=== PATIENT | female | born 1935 | race Hispanic/Latino ===

== ENCOUNTER 2018-12-08 08:32 | Emergency (ER) | payer MEDICARE ==
[2018-12-08 09:01] VITALS: BP 193/85
[2018-12-08] MEDS ORDERED: NORVASC PO ONE (09:53)
--- NOTE | 2018-12-08 10:01 | XRay Report ---
AP CHEST: HISTORY: Palpitations No comparison. There is poor inspiration with bilateral lower lobe opacities. This probably represents atelectatic changes or scarring. The upper lung zones are clear. No large pleural effusion or pneumothorax. Heart size is within normal limits. The bony structures are mildly demineralized but intact. IMPRESSION: Bibasilar opacities as described. I suspect this is secondary to poor inspiration or chronic scarring. If fever is present, pneumonia could be considered.
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
--- NOTE | 2018-12-08 10:34 | Cat Scan Report ---
CT CERVICAL SPINE WITHOUT CONTRAST:12/08/18 08:32:00 CLINICAL: Headache. TECHNIQUE: Volumetric acquisition and 1.25-mm axial scan reconstructions without contrast. Sagittal and coronal reformats were performed. FINDINGS: Moderate multilevel degenerative disc disease with reversal of curvature at C3-4. Disc space narrowing and osteophytes from C3-4 through C6-7. Moderate spinal canal stenosis from C3-4 through C6-5-6. Odontoid and C1 are intact. Multilevel bilateral facet joint arthropathy. No fracture or subluxation. Normal soft tissues and airway. No apparent disc protrusions or bulges. IMPRESSION: Multilevel degenerative disc disease and facet joint arthropathy.
--- NOTE | 2018-12-08 10:47 | Cat Scan Report ---
CT ABDOMEN AND PELVIS WITHOUT CONTRAST: 12/08/18 08:32:00 CLINICAL:Abdominal pain. TECHNIQUE: Volumetric acquisition and 1.25 millimeter scan reconstructions from the lung bases through the pelvis. The study was performed without oral contrast. FINDINGS: Abdomen:Bilateral lower lobe partial atelectasis and scarring. Bilateral lower lobe bronchiectasis. No pleural effusion. Normal liver size, contour and overall density. No liver mass. Normal intrahepatic bile ducts. The gallbladder is distended with a small amount of sludge in the dependent portion of the gallbladder. No cholelithiasis. The distal common bile duct measures 7.5 mm but tapers to the ampulla. No evidence of choledocholithiasis. The pancreas is small and unremarkable. Normal stomach and duodenum. Normal adrenal glands and kidneys. The renal collecting systems and ureters are nondilated. Normal inferior vena cava. Extensive calcification of the abdominal aorta. Aortic ectasia and tortuosity. The small bowel and colon are normal. An appendix is not confidently identified. No ascites and no pneumoperitoneum. Pelvis: Normal urinary bladder and uterus. Irregular mass of the distal rectum extending into the vulva. The mass measures at least 5.3 x 4.0 cm image 332, series 2. This irregular mass is also demonstrated on coronal imaging image 89, series 4. Bone windows demonstrate extensive degenerative changes in the spine and no suspicious bone lesions. IMPRESSION: 1. Mass of the distal rectum, anus and vulva. The margins of the mass and exact size are not well delineated on this noncontrast exam and would be better demonstrated with IV contrast and contrast in the rectum. 2. No evidence of bowel obstruction. 3. Negative upper abdomen.
[2018-12-08 10:50] LABS: Hematocrit 29.2 % (30.3-42.9); Hemoglobin 9.5 gm/dl (10.1-14.3); Mean Corpuscular HGB Conc 33 % (30-34); Mean Corpuscular Volume 79 fl (79-97); Platelet Count 428 K/mm3 (140-440); Red Blood Count 3.71 M/mm3 (3.65-5.03); Red Cell Distribution Width 17.5 % (13.2-15.2)
[2018-12-08 11:01] LABS: INR 1.06 (0.87-1.13)
[2018-12-08 11:02] LABS: Partial Thromboplastin Time 38.3 Sec. (24.2-36.6)
[2018-12-08 11:10] LABS: Alanine Aminotransferase 7 units/L (7-56); Albumin 3.9 g/dL (3.9-5); BUN/Creatinine Ratio 12; Blood Urea Nitrogen 7 mg/dL (7-17); Calcium 9.9 mg/dL (8.4-10.2); Hemolysis Index 21
[2018-12-08 11:51] LABS: Band Neutrophils # (Manual) 0.2 K/mm3; Basophils % (Manual) 0 % (0.0-1.8); Eosinophils % (Manual) 0 % (0.0-4.3); Giant Platelets Rare; Hypochromasia 1+; Platelet Estimate Consistent w Auto; Total Cells Counted 100
--- NOTE | 2018-12-08 12:15 | Emergency Department Report ---
ED General Adult HPI - General Chief complaint: Medical Clearance Stated complaint: PAIN ALL OVER Time Seen by Provider: 12/08/18 09:16 Source: EMS Mode of arrival: Stretcher Limitations: No Limitations - History of Present Illness Initial comments: The patient presents to emergency department with multiple chief complaints. The patient complains of having a headache that started since she arrived to the emergency department that she describes as being diffuse in nature and throbbing. Patient also complains of neck pain. Patient denies a recent trauma but has a history of brain aneurysm. Patient also complains of diffuse abdominal pain as well. Patient was recently seen by her primary care physician and was told that she needs to follow up with digital media producer. -: Gradual Location: head, abdomen Radiation: non-radiation Severity scale (0 -10): 5 Quality: aching Consistency: constant Improves with: none Worsens with: none Associated Symptoms: denies other symptoms Treatments Prior to Arrival: none - Related Data Previous Rx's Medication Instructions Recorded Last Taken Type Ibuprofen [Motrin] 800 mg PO Q8HR PRN #21 tablet 12/08/18 Unknown Rx Allergies Allergy/AdvReac Type Severity Reaction Status Date / Time No Known Allergies Allergy Verified 12/08/18 08:43 ED Review of Systems ROS: Stated complaint: PAIN ALL OVER Other details as noted in HPI Comment: Unobtainable due to pts medical conditions Constitutional: denies: chills, fever Eyes: denies: eye pain, eye discharge, vision change ENT: denies: ear pain, throat pain Respiratory: denies: cough, shortness of breath, wheezing Cardiovascular: denies: chest pain, palpitations Endocrine: no symptoms reported Gastrointestinal: abdominal pain. denies: nausea, diarrhea Genitourinary: denies: urgency, dysuria, discharge Musculoskeletal: denies: back pain, joint swelling, arthralgia Skin: denies: rash, lesions Neurological: headache. denies: weakness, paresthesias Psychiatric: denies: anxiety, depression Hematological/Lymphatic: denies: easy bleeding, easy bruising ED Past Medical Hx - Past Medical History Previous Medical History?: Yes Hx Hypertension: Yes Hx Diabetes: Yes - Surgical History Past Surgical History?: Yes Hx Breast Surgery: Yes (L mastectomy) - Social History Smoking Status: Never Smoker Substance Use Type: None - Medications Home Medications: Home Medications Medication Instructions Recorded Confirmed Last Taken Type Ibuprofen [Motrin] 800 mg PO Q8HR PRN #21 tablet 12/08/18 Unknown Rx ED Physical Exam - General Limitations: No Limitations General appearance: alert, in no apparent distress - Head Head exam: Present: atraumatic, normocephalic - Eye Eye exam: Present: normal appearance, PERRL, EOMI - ENT ENT exam: Present: mucous membranes moist - Neck Neck exam: Present: normal inspection - Respiratory Respiratory exam: Present: normal lung sounds bilaterally. Absent: respiratory distress, wheezes, rales, rhonchi - Cardiovascular Cardiovascular Exam: Present: normal rhythm, other (irregularly irregular). Absent: systolic murmur, diastolic murmur, rubs, gallop - GI/Abdominal GI/Abdominal exam: Present: soft, tenderness (diffuse tenderness to palpation), normal bowel sounds. Absent: distended - Rectal Rectal exam: Present: other (rectal mass on digital exam chaperoned by Nurse Juliana Teague) - External exam: Present: other (mass of Vulva chaperoned by Nurse Juliana RN) - Extremities Exam Extremities exam: Present: normal inspection - Back Exam Back exam: Present: normal inspection - Neurological Exam Neurological exam: Present: alert, oriented X3, CN II-XII intact. Absent: motor sensory deficit - Psychiatric Psychiatric exam: Present: normal affect, normal mood - Skin Skin exam: Present: warm, dry, intact, normal color. Absent: rash ED Course Vital Signs 12/08/18 12/08/18 12/08/18 08:40 08:48 09:00 Temperature 99.1 F 98.5 F Pulse Rate 120 H 107 H Respiratory 16 Rate Blood Pressure 190/80 193/85 O2 Sat by Pulse 95 96 Oximetry ED Medical Decision Making - Lab Data Result diagrams: 12/08/18 10:25 12/08/18 10:25 Lab Results 12/08/18 12/08/18 12/08/18 Range/Units 10:25 10:25 10:25 WBC 10.2 (4.5-11.0) K/mm3 RBC 3.71 (3.65-5.03) M/mm3 Hgb 9.5 L (10.1-14.3) gm/dl Hct 29.2 L (30.3-42.9) % MCV 79 (79-97) fl MCH 26 L (28-32) pg MCHC 33 (30-34) % RDW 17.5 H (13.2-15.2) % Plt Count 428 (140-440) K/mm3 [place] % (Auto) Grading Clerk Add Manual Diff Complete Total Counted 100 Seg Neuts % (Manual) 77.0 H (40.0-70.0) % Band Neutrophils % 2.0 % Lymphocytes % (Manual) 8.0 L (13.4-35.0) % Reactive Lymphs % (Man) 0 % Monocytes % (Manual) 13.0 H (0.0-7.3) % Eosinophils % (Manual) 0 (0.0-4.3) % Basophils % (Manual) 0 (0.0-1.8) % Metamyelocytes % 0 % Myelocytes % 0 % Promyelocytes % 0 % Blast Cells % 0 % Nucleated RBC % Not Reportable Seg Neutrophils # Man 7.9 H (1.8-7.7) K/mm3 Band Neutrophils # 0.2 K/mm3 Lymphocytes # (Manual) 0.8 L (1.2-5.4) K/mm3 Abs React Lymphs (Man) 0.0 K/mm3 Monocytes # (Manual) 1.3 H (0.0-0.8) K/mm3 Eosinophils # (Manual) 0.0 (0.0-0.4) K/mm3 Basophils # (Manual) 0.0 (0.0-0.1) K/mm3 Metamyelocytes # 0.0 K/mm3 Myelocytes # 0.0 K/mm3 Promyelocytes # 0.0 K/mm3 Blast Cells # 0.0 K/mm3 WBC Morphology Not Reportable Hypersegmented Neuts Not Reportable Hyposegmented Neuts Not Reportable Hypogranular Neuts Not Reportable Smudge Cells Not Reportable Toxic Granulation Not Reportable Toxic Vacuolation Not Reportable Dohle Bodies Not Reportable Pelger-Huet Anomaly Not Reportable Randee Rods Not Reportable Platelet Estimate Consistent w auto Clumped Platelets Not Reportable Plt Clumps, EDTA Not Reportable Large Platelets Not Reportable Giant Platelets Rare Platelet Satelliting Not Reportable Plt Morphology Comment Not Reportable RBC Morphology Not Reportable Dimorphic RBCs Not Reportable Polychromasia Not Reportable Hypochromasia 1+ Poikilocytosis Not Reportable Anisocytosis Not Reportable Microcytosis Not Reportable Macrocytosis Not Reportable Spherocytes Not Reportable Pappenheimer Bodies Not Reportable Sickle Cells Not Reportable Target Cells Not Reportable Tear Drop Cells Not Reportable Ovalocytes Not Reportable Helmet Cells Not Reportable [place]-Saks Bodies Not Reportable [place] Rings Not Reportable Ania Cells Not Reportable Bite Cells Not Reportable Crenated Cell Not Reportable Elliptocytes Not Reportable Acanthocytes (Spur) Not Reportable Rouleaux Not Reportable Hemoglobin C Crystals Not Reportable Schistocytes Not Reportable Malaria parasites Not Reportable Josemanuel Bodies Not Reportable Hem Pathologist Commnt No PT 14.5 (12.2-14.9) Sec. INR 1.06 (0.87-1.13) APTT 38.3 H (24.2-36.6) Sec. Sodium 137 (137-145) mmol/L Potassium 3.9 (3.6-5.0) mmol/L Chloride 99.2 (98-107) mmol/L Carbon Dioxide 22 (22-30) mmol/L Anion Gap 20 mmol/L BUN 7 (7-17) mg/dL Creatinine 0.6 L (0.7-1.2) mg/dL Estimated GFR > 60 ml/min BUN/Creatinine Ratio 12 % Glucose 154 H (65-100) mg/dL Calcium 9.9 (8.4-10.2) mg/dL Phosphorus 2.40 L (2.5-4.5) mg/dL Magnesium 1.70 (1.7-2.3) mg/dL Total Bilirubin 0.40 (0.1-1.2) mg/dL AST 12 (5-40) units/L ALT 7 (7-56) units/L Alkaline Phosphatase 75 (35-129) units/L NT-Pro-B Natriuret Pep 601.7 (0-900) pg/mL Total Protein 8.1 (6.3-8.2) g/dL Albumin 3.9 (3.9-5) g/dL Albumin/Globulin Ratio 0.9 % Urine Color (Yellow) Urine Turbidity (Clear) Urine pH (5.0-7.0) Ur Specific [place] (1.003-1.030) Urine Protein (Negative) mg/dL Urine Glucose (UA) (Negative) mg/dL Urine Ketones (Negative) mg/dL Urine Blood (Negative) Urine Nitrite (Negative) Urine Bilirubin (Negative) Urine Urobilinogen (<2.0) mg/dL Ur Leukocyte Esterase (Negative) Urine WBC (Auto) (0.0-6.0) /HPF Urine RBC (Auto) (0.0-6.0) /HPF 12/08/18 Range/Units Unknown WBC (4.5-11.0) K/mm3 RBC (3.65-5.03) M/mm3 Hgb (10.1-14.3) gm/dl Hct (30.3-42.9) % MCV (79-97) fl MCH (28-32) pg MCHC (30-34) % RDW (13.2-15.2) % Plt Count (140-440) K/mm3 [place] % (Auto) Add Manual Diff Total Counted Seg Neuts % (Manual) (40.0-70.0) % Band Neutrophils % % Lymphocytes % (Manual) (13.4-35.0) % Reactive Lymphs % (Man) % Monocytes % (Manual) (0.0-7.3) % Eosinophils % (Manual) (0.0-4.3) % Basophils % (Manual) (0.0-1.8) % Metamyelocytes % % Myelocytes % % Promyelocytes % % Blast Cells % % Nucleated RBC % Seg Neutrophils # Man (1.8-7.7) K/mm3 Band Neutrophils # K/mm3 Lymphocytes # (Manual) (1.2-5.4) K/mm3 Abs React Lymphs (Man) K/mm3 Monocytes # (Manual) (0.0-0.8) K/mm3 Eosinophils # (Manual) (0.0-0.4) K/mm3 Basophils # (Manual) (0.0-0.1) K/mm3 Metamyelocytes # K/mm3 Myelocytes # K/mm3 Promyelocytes # K/mm3 Blast Cells # K/mm3 WBC Morphology Hypersegmented Neuts Hyposegmented Neuts Hypogranular Neuts Smudge Cells Toxic Granulation Toxic Vacuolation Dohle Bodies Pelger-Huet Anomaly Randee Rods Platelet Estimate Clumped Platelets Plt Clumps, EDTA Large Platelets Giant Platelets Platelet Satelliting Plt Morphology Comment RBC Morphology Dimorphic RBCs Polychromasia Hypochromasia Poikilocytosis Anisocytosis Microcytosis Macrocytosis Spherocytes Pappenheimer Bodies Sickle Cells Target Cells Tear Drop Cells Ovalocytes Helmet Cells [place]-Saks Bodies [place] Rings [place] Cells Bite Cells Crenated Cell Elliptocytes Acanthocytes (Spur) Rouleaux Hemoglobin C Crystals Schistocytes Malaria parasites Josemanuel Bodies Hem Pathologist Commnt PT (12.2-14.9) Sec. INR (0.87-1.13) APTT (24.2-36.6) Sec. Sodium (137-145) mmol/L Potassium (3.6-5.0) mmol/L Chloride (98-107) mmol/L Carbon Dioxide (22-30) mmol/L Anion Gap mmol/L BUN (7-17) mg/dL Creatinine (0.7-1.2) mg/dL Estimated GFR ml/min BUN/Creatinine Ratio % Glucose (65-100) mg/dL Calcium (8.4-10.2) mg/dL Phosphorus (2.5-4.5) mg/dL Magnesium (1.7-2.3) mg/dL Total Bilirubin (0.1-1.2) mg/dL AST (5-40) units/L ALT (7-56) units/L Alkaline Phosphatase (35-129) units/L NT-Pro-B Natriuret Pep (0-900) pg/mL Total Protein (6.3-8.2) g/dL Albumin (3.9-5) g/dL Albumin/Globulin Ratio % Urine Color Yellow (Yellow) Urine Turbidity Clear (Clear) Urine pH 7.0 (5.0-7.0) Ur Specific [place] 1.013 (1.003-1.030) Urine Protein <15 mg/dl (Negative) mg/dL Urine Glucose (UA) 50 (Negative) mg/dL Urine Ketones 20 (Negative) mg/dL Urine Blood Neg (Negative) Urine Nitrite Neg (Negative) Urine Bilirubin Neg (Negative) Urine Urobilinogen < 2.0 (<2.0) mg/dL Ur Leukocyte Esterase Neg (Negative) Urine WBC (Auto) < 1.0 (0.0-6.0) /HPF Urine RBC (Auto) 1.0 (0.0-6.0) /HPF - Radiology Data Radiology results: report reviewed - Medical Decision Making on Repeat exams the patient heart rate is tachycardic but has not irregularly irregular patient still denies this pain Spoke with cardiology and appointment is set for tomorrow for follow-up Discussed plan of care with the patient her family Critical care attestation.: If time is entered above; I have spent that time in minutes in the direct care of this critically ill patient, excluding procedure time. ED Disposition Clinical Impression: Vulvar mass, Rectal mass, Arrhythmia, Cervical strain, Headache, Abdominal pain Disposition: TO HOME OR SELFCARE Is pt being admited?: No Does the pt Need Aspirin: No Condition: Stable Instructions: Acute Abdominal Pain (ED), Acute Headache (ED), Cervical Spine Strain (ED) Additional Instructions: return if worse History of appointment tomorrow at Dr. Moeller's office at 2:20pm Prescriptions: Ibuprofen [Motrin] 800 mg PO Q8HR PRN #21 tablet PRN Reason: pain Referrals: MEL MUNSON DO [Staff Physician] - 3-5 Days RICHARD MOELLER MD [Staff Physician] - 3-5 Days PRIMARY CAREMD [Primary Care Provider] - 3-5 Days [facility] [Provider Group] - 3-5 Days Time of Disposition: 14:44
[2018-12-08 13:58] LABS: Bilirubin,Urine NEG (Negative); Blood,Urine NEG (Negative); Color,Urine Yellow (Yellow); Protein,Urine <15 mg/dL mg/dL (Negative); Urobilinogen,Urine < 2.0 mg/dL (<2.0); WBC,Urine < 1.0 /HPF (0.0-6.0)
== END 2018-12-08 15:29 | disposition home or self-care (01) ==
LOC: ED 08:32
DX: S16.1XXA Strain of muscle, fascia and tendon at neck level, initial encounter (principal); N90.9 Noninflammatory disorder of vulva and perineum, unspecified; K62.9 Disease of anus and rectum, unspecified; I10 Essential (primary) hypertension; E11.9 Type 2 diabetes mellitus without complications; Z90.12 Acquired absence of left breast and nipple; X58.XXXA Exposure to other specified factors, initial encounter; Y93.89 Activity, other specified; Y92.89 Other specified places as the place of occurrence of the external cause; Y99.8 Other external cause status
CPT/HCPCS: 36415; 70450; 71045; 72125; 74176; 80053; 81001; 83735; 83880; 84100; 85007; 85025; 85610; 85730; 93005; 93010; 99285

== ENCOUNTER 2019-04-05 15:27 | Inpatient (IN) | payer MEDICARE ==
[2019-04-05] MEDS ORDERED: CATAPRES PO ONE (16:55)
[2019-04-05] MEDS ORDERED: NORCO 5/325 PO ONE (16:56)
[2019-04-05 17:03] LABS: Hematocrit 31.8 % (30.3-42.9); Hemoglobin 10.5 gm/dl (10.1-14.3); Mean Corpuscular HGB Conc 33 % (30-34); Mean Corpuscular Volume 80 fl (79-97); Platelet Count 365 K/mm3 (140-440); Red Blood Count 3.97 M/mm3 (3.65-5.03)
[2019-04-05 17:04] LABS: Red Cell Distribution Width 22.2 % (13.2-15.2)
--- NOTE | 2019-04-05 17:07 | Emergency Department Report ---
ED Extremity Problem HPI - General Chief complaint: Extremity Injury, Lower Stated complaint: LEG PAIN (BOTH) Time Seen by Provider: 04/05/19 16:35 Source: patient Mode of arrival: Wheelchair Limitations: No Limitations - History of Present Illness Initial comments: 83-year-old female past medical history is [id number] diabetes, diabetic neuropathy, hypertension, elevated cholesterol, breast cancer in remission status post left mastectomy presents to the hospital complaining of worsening and chronic right foot pain. Patient has had chronic foot ulcers and has been under care of a program manager environmental planning for at least 3 months. She has been seen by [facility] at [address] [place] [address] phone #[phone]. Patient completed a course of antibiotics 2 weeks ago. She Missed a recent scheduled MRI appointment of both feet and a follow-up appointment yesterday. Patient presents with elevated blood pressure and heart rateshe has been compliant with her medication. She presents complaining of worsening and chronic right fifth toe pain without new complaints of trauma. No complaints of fever. Patient taking a neuropathy pill for pain and Tylenol without relief. Severity scale (0 -10): 8 - Related Data Previous Rx's Medication Instructions Recorded Last Taken Type Ibuprofen [Motrin] 800 mg PO Q8HR PRN #21 tablet 12/08/18 Unknown Rx Allergies Allergy/AdvReac Type Severity Reaction Status Date / Time No Known Allergies Allergy Verified 04/05/19 15:30 ED Review of Systems ROS: Stated complaint: LEG PAIN (BOTH) Other details as noted in HPI Comment: All other systems reviewed and negative ED Past Medical Hx - Past Medical History Hx Hypertension: Yes Hx Diabetes: Yes Hx of Cancer: Yes (breast cancer in remission) Additional medical history: Elevated cholesterol - Surgical History Hx Breast Surgery: Yes (L mastectomy) - Social History Smoking Status: Unknown if ever smoked - Medications Home Medications: Home Medications Medication Instructions Recorded Confirmed Last Taken Type Ibuprofen [Motrin] 800 mg PO Q8HR PRN #21 tablet 12/08/18 Unknown Rx ED Physical Exam - General Limitations: No Limitations - Other Other exam information: General: No limitations, patient is alert in no acute distress Head exam: Atraumatic, normocephalic Eyes exam: Normal appearance ENT: Moist mucous membrane, normal oropharynx Neck exam: Normal inspection, full range of motion, no meningismus nontender Respiratory exam: Clear to auscultation bilateral, no wheezes, rales, crackles Cardiovascular: Normal rate and rhythm, normal heart sounds Abdomen: Soft, nondistended, and nontender, with normal bowel sounds, no rebound, or guarding Extremity: Rightfully eroded right toe with chronic ulcer without warmth, drainage, or tenderness. Patient has a superficial ulcer to right pinkie toe with pain with passive and active movement. Unable to palpate DP pulses of either foot or auscultate with Doppler Back: Normal Inspection, full range of motion, no tenderness Neurologic: Alert, oriented x3, cranial nerves intact, no motor or sensory deficit Psychiatric: normal affect, normal mood Skin: Warm, dry, intact ED Course Vital Signs 04/05/19 04/05/19 04/05/19 16:30 16:35 17:13 Temperature 98.0 F Pulse Rate 111 H 130 H Respiratory 13 16 Rate Blood Pressure Blood Pressure 222/120 [Left] O2 Sat by Pulse 99 100 100 Oximetry 04/05/19 04/05/19 04/05/19 17:30 18:00 18:37 Temperature Pulse Rate 89 85 98 H Respiratory 18 18 24 Rate Blood Pressure 186/85 167/69 167/69 Blood Pressure [Left] O2 Sat by Pulse 94 97 Oximetry 04/05/19 04/05/19 19:01 19:31 Temperature Pulse Rate 91 H 86 Respiratory 15 16 Rate Blood Pressure 148/79 167/69 Blood Pressure [Left] O2 Sat by Pulse 100 100 Oximetry ED Medical Decision Making - Lab Data Result diagrams: 04/05/19 16:53 04/05/19 16:53 Lab Results 04/05/19 04/05/19 04/05/19 Range/Units 16:53 16:53 17:12 WBC 5.8 (4.5-11.0) K/mm3 RBC 3.97 (3.65-5.03) M/mm3 Hgb 10.5 (10.1-14.3) gm/dl Hct 31.8 (30.3-42.9) % MCV 80 (79-97) fl MCH 27 L (28-32) pg MCHC 33 (30-34) % RDW 22.2 H (13.2-15.2) % Plt Count 365 (140-440) K/mm3 ESR 38 (0-20) mm/Hr Sodium 139 (137-145) mmol/L Potassium 3.8 (3.6-5.0) mmol/L Chloride 101.0 (98-107) mmol/L Carbon Dioxide 21 L (22-30) mmol/L Anion Gap 21 mmol/L BUN 11 (7-17) mg/dL Creatinine 0.6 L (0.7-1.2) mg/dL Estimated GFR > 60 ml/min BUN/Creatinine Ratio 18 % Glucose 102 H (65-100) mg/dL POC Glucose 109 H (70-105) Calcium 10.0 (8.4-10.2) mg/dL Total Bilirubin 0.20 (0.1-1.2) mg/dL AST 18 (5-40) units/L ALT 18 (7-56) units/L Alkaline Phosphatase 97 (35-129) units/L Total Protein 8.2 (6.3-8.2) g/dL Albumin 4.1 (3.9-5) g/dL Albumin/Globulin Ratio 1.0 % - EKG Data -: EKG Interpreted by Nv EKG shows normal: sinus rhythm, axis (qrs -22), QRS complexes (qrsd 80), ST-T waves (no setmi) Rate: normal (87) - Radiology Data Radiology results: report reviewed, image reviewed (right foot xray: (my read) 5 toe degeneration at proximal phalnge ? fxt vs osteo) official report obtained afer admission: PROCEDURE: XR FOOT 3+V RT TECHNIQUE: foot radiographs, AP, lateral, and oblique views. HISTORY: foot pain chronic 1st and 5th toe ulcer COMPARISONS: None . FINDINGS: AP, lateral and oblique views of the right foot were acquired. No fracture or evidence of osteomyelitis is seen in the right foot. There is a soft tissue density dorsal to the first distal phalanx approximately 0.9 x 0.8 cm. This is abutting clear etiology could be a skin tag or an abnormality of the nail of the first digit. Correlation with direct visualization is recommended. There is 0.3 similar lateral listhesis of the fifth middle phalanx with regard to the proximal phalanx which appears unlikely to be acute finding. There is enthesophyte at the Achilles tendon insertion. There is atherosclerosis of the arterial vasculature. IMPRESSION: No fracture is seen in the right foot - Medical Decision Making She has bone abnormality or x-ray at the fifth digit at the area of patient's chronic blister of her fifth right toe. ddx occult fracture versus osteomyelitis. This is also at the area of her chronic blister therefore since patient has elevated ESR she will be treated for osteomyelitis. Blood cultures pending. Vancomycin ordered. Hospitalist nurse practitioner informed. Pain improved after [place] and blood pressure improved after clonidine. Heart rate also improved. We are unable to palpate or auscultate a DP pulse in either extremity in the ED official report of foot xray received after admission. pt has tenderness there with elevated ESR so clinically will be treated for osteo until it is ruled out. - Differential Diagnosis foot ulcer, cellulitis, osteomyelitis, chronic pain, neuropathy, pad Critical Care Time: No Critical care attestation.: If time is entered above; I have spent that time in minutes in the direct care of this critically ill patient, excluding procedure time. ED Disposition Clinical Impression: Diabetic foot ulcer, Osteomyelitis, Hypertension, Diabetic neuropathy, PAD (peripheral artery disease) Disposition: OP ADMIT IP TO THIS HOSP Is pt being admited?: Yes Condition: Stable Time of Disposition: 19:32 (hospitalist)
[2019-04-05 17:23] LABS: Erythrocyte Sedimentation Rate 38 mm/Hr (0-20)
[2019-04-05 17:25] LABS: Alanine Aminotransferase 18 units/L (7-56); Albumin 4.1 g/dL (3.9-5); BUN/Creatinine Ratio 18; Blood Urea Nitrogen 11 mg/dL (7-17); Hemolysis Index 11
--- NOTE | 2019-04-05 19:34 | XRay Report ---
PROCEDURE: XR FOOT 3+V RT TECHNIQUE: foot radiographs, AP, lateral, and oblique views. HISTORY: foot pain chronic 1st and 5th toe ulcer COMPARISONS: None . FINDINGS: AP, lateral and oblique views of the right foot were acquired. No fracture or evidence of o steomyelitis is seen in the right foot. There is a soft tissue density dorsal to the first distal pha lanx approximately 0.9 x 0.8 cm. This is abutting clear etiology could be a skin tag or an abnormalit y of the nail of the first digit. Correlation with direct visualization is recommended. There is 0.3 similar lateral listhesis of the fifth middle phalanx with regard to the proximal phalan x which appears unlikely to be acute finding. There is enthesophyte at the Achilles tendon insertion. There is atherosclerosis of the arterial vasculature. IMPRESSION: No fracture is seen in the right foot This document is electronically signed by Quinten Cummings MD., April 05 2019 07:32:31 PM ET
[2019-04-05] MEDS ORDERED: VANCOMYCIN/NS 1 GM/250 ML 1 GM/250 ML BAG IV ONE (19:55)
[2019-04-05] MEDS ORDERED: D50W (25GM) Syringe IV PRN (20:21)
[2019-04-05] MEDS ORDERED: ZOFRAN IV PRN (20:21)
[2019-04-05] MEDS ORDERED: SODIUM CHLORIDE FLUSH SYRINGE 10 ML IV PRN (20:21)
[2019-04-05] MEDS ORDERED: VANCOMYCIN PHARMACY TO DOSE IV SCH (21:00)
--- NOTE | 2019-04-05 21:00 | History and Physical Report ---
<ADAMARIS HOUGH - Last Filed: 04/05/19 21:35> History of Present Illness Date of examination: 04/05/19 Date of admission: 04/05/19 20:21 Chief complaint: Right foot pain/sore History of present illness: 83-year-old -Tongan female with history of DM2 with neuropathy, hypertension, HLD, breast cancer (in remission) s/p left mastectomy presents to [facility] ED with complaints of worsening chronic right foot pain. She's had chronic foot ulcers for several months and has been under care of a instrument processing tech ([facility] at [address] [place] [address]) for the past 3 months. She complains right foot pain, and the pain is worse and right toe. She also states that she has sharp bilateral lower leg pain, and rates it 8/10. She has tried otc Tylenol and neuropathy medication with no relief. Patient states that she has completed a course of oral antibiotics 2 weeks ago. Patient had a schedule appointment yesterday for MRI of both feet; however she was unable to keep appointment. Denies: Recent foot trauma, n/v/d, fever, cough, hemoptysis, recent sick contact, or recent hospitalization Past History Past Medical History: cancer (breast cancer), diabetes ([id number]), hypertension, hyperlipidemia Past Surgical History: mastectomy (left) Social history: lives with family Family history: no significant family history Medications and Allergies Allergies Allergy/AdvReac Type Severity Reaction Status Date / Time No Known Allergies Allergy Verified 04/05/19 15:30 Home Medications Medication Instructions Recorded Confirmed Last Taken Type Ibuprofen [Motrin] 800 mg PO Q8HR PRN #21 tablet 12/08/18 04/06/19 Unknown Rx Gabapentin [Neurontin] 300 mg PO BID 04/05/19 04/06/19 Unknown History Losartan [Cozaar] 100 mg PO QDAY 04/05/19 04/06/19 Unknown History Metoprolol [Lopressor TAB] 25 mg PO QDAY 04/05/19 04/06/19 Unknown History Ranitidine HCl [Zantac] 300 mg PO QDAY 04/05/19 04/06/19 Unknown History Simvastatin 40 mg PO QHS 04/05/19 04/06/19 Unknown History Vitamin D2 50,000 units PO QWEEK 04/05/19 04/06/19 Unknown History amLODIPine [Norvasc] 10 mg PO DAILY 04/05/19 04/05/19 Unknown History metFORMIN [Glucophage] 500 mg PO QHS 04/05/19 04/06/19 Unknown History Active Meds: Active Medications Acetaminophen (Tylenol) 650 mg PO Q4H PRN PRN Reason: Pain MILD(1-3)/Fever >100.5/HYLTON Dextrose (D50w (25gm) Syringe) 50 ml IV PRN PRN PRN Reason: Hypoglycemia Enoxaparin Sodium (Lovenox) 40 mg SUB-Q QDAY [facility] Vancomycin HCl (Vancomycin/Ns 1 Gm/250 Ml) 1 gm in 250 mls @ 167.007 mls/hr IV ONCE ONE; Protocol Stop: 04/05/19 21:24 Ampicillin Sodium/Sulbactam Sodium (Unasyn/Ns 1.5 Gm/50 Ml) 1.5 gm in 50 mls @ 100 mls/hr IV Q6HR [facility]; Protocol Vancomycin HCl 750 mg/ Sodium (Chloride) 265 mls @ 166.667 mls/hr IV Q24H [facility] Insulin Human Lispro (Humalog) 0 unit SUB-Q ACHS [facility]; Protocol Ondansetron HCl (Zofran) 4 mg IV Q8H PRN PRN Reason: Nausea And Vomiting Oxycodone/Acetaminophen (Percocet 5/325) 1 tab PO Q6H PRN PRN Reason: Pain, Moderate (4-6) Sodium Chloride (Sodium Chloride Flush Syringe 10 Ml) 10 ml IV BID [facility] Sodium Chloride (Sodium Chloride Flush Syringe 10 Ml) 10 ml IV PRN PRN PRN Reason: LINE FLUSH Review of Systems All systems: negative (reviewed and no additional remarkable complaints except as noted below) Musculoskeletal: shooting leg pain Integumentary: sores (right foot), foot/leg ulcers Exam - Physical Exam Narrative exam: Physical exam General appearance: Present: No acute distress, alert and oriented 3, older adult -Tongan female - EENT Eyes: Present: PERRL, EOM intact ENT: hearing intact, poor dentition - Neck Neck: Present: supple, normal ROM - Respiratory Respiratory effort: Non-labored Respiratory: Clear throughout - Cardiovascular Heart rate: 87 (bpm) Rhythm: Sinus rhythm Heart Sounds: Present: S1 & S2. Absent: rub, click - Extremities Extremities: no ischemia, pulses intact, abnormal (sore/wound right great toe, posterior to right toe, sore great toe) - Peripheral Assessment Peripheral Pulses: within normal limits - Abdominal General gastrointestinal: soft, non-tender, normal bowel sounds - Integumentary Integumentary: Present: warm, dry - Musculoskeletal Musculoskeletal: generalized weakness - Psychiatric Psychiatric: cooperative - Constitutional Vitals: Temp Pulse Resp BP Pulse Ox 98.0 F 86 16 167/69 100 04/05/19 16:35 04/05/19 19:31 04/05/19 19:31 04/05/19 19:31 04/05/19 19:31 Results - Labs CBC & Chem 7: 04/05/19 16:53 04/05/19 16:53 Labs: Laboratory Last Values WBC 5.8 K/mm3 (4.5-11.0) 04/05/19 16:53 RBC 3.97 M/mm3 (3.65-5.03) 04/05/19 16:53 Hgb 10.5 gm/dl (10.1-14.3) 04/05/19 16:53 Hct 31.8 % (30.3-42.9) 04/05/19 16:53 MCV 80 fl (79-97) 04/05/19 16:53 MCH 27 pg (28-32) L 04/05/19 16:53 MCHC 33 % (30-34) 04/05/19 16:53 RDW 22.2 % (13.2-15.2) H 04/05/19 16:53 Plt Count 365 K/mm3 (140-440) 04/05/19 16:53 ESR 38 mm/Hr (0-20) 04/05/19 16:53 Sodium 139 mmol/L (137-145) 04/05/19 16:53 Potassium 3.8 mmol/L (3.6-5.0) 04/05/19 16:53 Chloride 101.0 mmol/L (98-107) 04/05/19 16:53 Carbon Dioxide 21 mmol/L (22-30) L 04/05/19 16:53 21 mmol/L 04/05/19 16:53 BUN 11 mg/dL (7-17) 04/05/19 16:53 0.6 mg/dL (0.7-1.2) L 04/05/19 16:53 Estimated GFR > 60 ml/min 04/05/19 16:53 18 % 04/05/19 16:53 Glucose 102 mg/dL (65-100) H 04/05/19 16:53 POC Glucose 109 (70-105) H 04/05/19 17:12 Calcium 10.0 mg/dL (8.4-10.2) 04/05/19 16:53 0.20 mg/dL (0.1-1.2) 04/05/19 16:53 AST 18 units/L (5-40) 04/05/19 16:53 ALT 18 units/L (7-56) 04/05/19 16:53 97 units/L (35-129) 04/05/19 16:53 8.2 g/dL (6.3-8.2) 04/05/19 16:53 4.1 g/dL (3.9-5) 04/05/19 16:53 1.0 % 04/05/19 16:53 - Imaging and Cardiology EKG: image reviewed (sinus rhythm 87 bpm) Imaging and Cardiology: Right foot x-ray: Findings: AP, lateral and oblique views of the right foot were acquired. No fracture or evidence of osteomyelitis is seen in the right foot. There is a soft tissue density dorsal to the first distal phalanx approximately 0.9 x 0.8 cm. This is abutting clear etiology could be a skin tag or an abnormality of the nail of the first digit. Correlation with direct visualization is recommended. There is 0.3 similar lateral listhesis of the fifth middle phalanx with regard to the proximal phalanx which appears unlikely to be acute finding. There is enthesophyte at the Achilles tendon insertion. There is atherosclerosis of the arterial vasculature. Assessment and Plan Assessment and plan: 83-year-old -Tongan female with history of DM2 with neuropathy, hypertension, HLD, breast cancer (in remission) s/p left mastectomy presents to [facility] ED with complaints of worsening chronic right foot pain. Left foot x-ray do not show evidence of fracture. She was found to be in hypertensive urgency with blood pressure of 186/85. Will admit to [facility] unit and start on empiric antibiotics. Suspicion of osteomyelitis Suspicion of PAD Hypertensive urgency Hypertension DM 2 with neuropathy HLD Hx Breast CA s/p Left masectomy Plan: Continue supportive care Pain Management Monitor BP IV hydralazine when necessary Will resume home antihypertensive medication once home medication reconciliation is updated bilateral low extremity arterial Doppler pending Start Unasyn and vancomycin ID consult pending POC BG Monitoring Pre-meal and sliding scale coverage ASA 81mg, Lipitor 10 mg daily at bedtime DVT PPX on Locenox Medication reconciliation pending Advance Directives: No VTE prophylaxis?: Chemical Plan of care discussed with patient/family: Yes <LYNN WATKINS S - Last Filed: 04/06/19 05:20> History of Present Illness Date of admission: 04/05/19 20:21 Medications and Allergies Active Meds: Active Medications Acetaminophen (Tylenol) 650 mg PO Q4H PRN PRN Reason: Pain MILD(1-3)/Fever >100.5/HYLTON Aspirin (Baby Aspirin) 81 mg PO QDAY [facility] Atorvastatin Calcium (Lipitor) 20 mg PO QHS [facility] Last Admin: 04/05/19 23:01 Dose: 20 mg Documented by: Dextrose (D50w (25gm) Syringe) 50 ml IV PRN PRN PRN Reason: Hypoglycemia Enoxaparin Sodium (Lovenox) 40 mg SUB-Q QDAY [facility] Ampicillin Sodium/Sulbactam Sodium (Unasyn/Ns 1.5 Gm/50 Ml) 1.5 gm in 50 mls @ 100 mls/hr IV Q6HR [facility]; Protocol Last Admin: 04/05/19 23:55 Dose: 100 mls/hr Documented by: Vancomycin HCl 750 mg/ Sodium (Chloride) 265 mls @ 166.667 mls/hr IV Q24H [facility] Insulin Human Lispro (Humalog) 0 unit SUB-Q ACHS [facility]; Protocol Last Admin: 04/05/19 23:09 Dose: 1 unit Documented by: Ondansetron HCl (Zofran) 4 mg IV Q8H PRN PRN Reason: Nausea And Vomiting Oxycodone/Acetaminophen (Percocet 5/325) 1 tab PO Q6H PRN PRN Reason: Pain, Moderate (4-6) Last Admin: 04/05/19 23:57 Dose: 1 tab Documented by: Sodium Chloride (Sodium Chloride Flush Syringe 10 Ml) 10 ml IV BID [facility] Last Admin: 04/05/19 23:02 Dose: 10 ml Documented by: Sodium Chloride (Sodium Chloride Flush Syringe 10 Ml) 10 ml IV PRN PRN PRN Reason: LINE FLUSH Exam - Constitutional Vitals: Temp Pulse Resp BP Pulse Ox 97.3 F L 84 18 171/73 100 04/06/19 02:39 04/06/19 02:39 04/06/19 02:39 04/06/19 02:39 04/06/19 02:39 Results - Labs CBC & Chem 7: 04/05/19 16:53 04/05/19 16:53 Labs: Laboratory Last Values WBC 5.8 K/mm3 (4.5-11.0) 04/05/19 16:53 RBC 3.97 M/mm3 (3.65-5.03) 04/05/19 16:53 Hgb 10.5 gm/dl (10.1-14.3) 04/05/19 16:53 Hct 31.8 % (30.3-42.9) 04/05/19 16:53 MCV 80 fl (79-97) 04/05/19 16:53 MCH 27 pg (28-32) L 04/05/19 16:53 MCHC 33 % (30-34) 04/05/19 16:53 RDW 22.2 % (13.2-15.2) H 04/05/19 16:53 Plt Count 365 K/mm3 (140-440) 04/05/19 16:53 ESR 38 mm/Hr (0-20) 04/05/19 16:53 Sodium 139 mmol/L (137-145) 04/05/19 16:53 Potassium 3.8 mmol/L (3.6-5.0) 04/05/19 16:53 Chloride 101.0 mmol/L (98-107) 04/05/19 16:53 Carbon Dioxide 21 mmol/L (22-30) L 04/05/19 16:53 21 mmol/L 04/05/19 16:53 BUN 11 mg/dL (7-17) 04/05/19 16:53 0.6 mg/dL (0.7-1.2) L 04/05/19 16:53 Estimated GFR > 60 ml/min 04/05/19 16:53 18 % 04/05/19 16:53 Glucose 102 mg/dL (65-100) H 04/05/19 16:53 POC Glucose 172 (70-105) H 04/05/19 23:12 5.7 % (4-6) 04/05/19 20:35 Calcium 10.0 mg/dL (8.4-10.2) 04/05/19 16:53 0.20 mg/dL (0.1-1.2) 04/05/19 16:53 AST 18 units/L (5-40) 04/05/19 16:53 ALT 18 units/L (7-56) 04/05/19 16:53 97 units/L (35-129) 04/05/19 16:53 8.2 g/dL (6.3-8.2) 04/05/19 16:53 4.1 g/dL (3.9-5) 04/05/19 16:53 1.0 % 04/05/19 16:53 Assessment and Plan Assessment and plan: Osteomyelitis-most likely MRI ordered,IV abx Unasyn and Vancomycin started PAD--to be ruled out Arterialduplex scan ordered
[2019-04-05] MEDS: SODIUM CHLORIDE FLUSH SYRINGE 10 ML IV SCH (23:02)
[2019-04-05] MEDS: HumaLOG SUB-Q SCH (23:09)
[2019-04-05] MEDS: UNASYN/NS 1.5 GM/50 ML 1.5 GM/50 ML BAG IV SCH (23:55)
[2019-04-05] MEDS: PERCOCET 5/325 PO PRN (23:57)
[2019-04-06] MEDS: UNASYN/NS 1.5 GM/50 ML 1.5 GM/50 ML BAG IV SCH ×3 (05:21→19:23)
[2019-04-06 05:59] LABS: Basophils # (Auto) 0.1 K/mm3 (0.0-0.1); Eosinophils # (Auto) 0.3 K/mm3 (0.0-0.4); Eosinophils % (Auto) 5.9 % (0.0-4.3); Hematocrit 30.5 % (30.3-42.9); Hemoglobin 9.6 gm/dl (10.1-14.3); Lymphocytes # (Auto) 1.2 K/mm3 (1.2-5.4); Lymphocytes % (Auto) 21.2 % (13.4-35.0); Mean Corpuscular HGB Conc 32 % (30-34); Mean Corpuscular Volume 80 fl (79-97); Monocytes # (Auto) 0.7 K/mm3 (0.0-0.8); Monocytes % (Auto) 11.8 % (0.0-7.3); Platelet Count 333 K/mm3 (140-440); Red Blood Count 3.79 M/mm3 (3.65-5.03); Red Cell Distribution Width 22.3 % (13.2-15.2)
[2019-04-06 06:12] LABS: BUN/Creatinine Ratio 20; Blood Urea Nitrogen 10 mg/dL (7-17); Calcium 9.4 mg/dL (8.4-10.2); Chol/HDL Ratio 2.53 %; HDL Cholesterol 66 mg/dL (40-59); Hemolysis Index 6; LDL Cholesterol,Direct 96 mg/dL (50-130)
[2019-04-06] MEDS ORDERED: HumuLIN R SUB-Q SCH (07:30)
[2019-04-06] MEDS: HumaLOG SUB-Q SCH ×2 (07:55→22:27)
[2019-04-06] MEDS: PERCOCET 5/325 PO PRN ×2 (08:38→19:14)
[2019-04-06] MEDS: LOVENOX SUB-Q SCH (09:28)
[2019-04-06] MEDS: BABY ASPIRIN PO SCH (09:28)
--- NOTE | 2019-04-06 10:51 | Consultation ---
History of Present Illness - Reason for Consult Consult date: 04/06/19 Foot infection, Osteomyelitis Requesting physician: HUGO HANKS - History of Present Illness This patient is an 83-year old female with a past medical history of type 2 diabetes with neuropathy, hypertension, HLD, Breast Ca , now in remission, s/p left mastectomy that presents in the ED on 04/05/19 with complaints of worsening chronic right foot pain. She has been under the care of a Web Assistant ([facility] at [address] [place] [address]), for the past 3 months. She reports chronic foot pain for the last several months with pain worse in the right toe, with sharp bilateral lower leg pain. She reports finishing a course of oral antibiotics 2 weeks ago. On admission WBC 5.7, Creatinine 0.6, Temperature 98, HR 111, BP 186/85. Foot xray showed no fracture or evidence of osteomyelitis in the right foot. Soft tissue density dorsal to the first distal phalanx. This is abutting clear etiology could be a skin tag or an abnormality of the nail of the first digit. Blood cultures are in progress. Patient states that she has been having chronic bilateral leg and foot pain for the last 3 months, more on the right than the left. She reports that her right 5th toe has a chronic blister that continues to hurt. She also reports that her right great toenail bed is eroded. Review of Systems: General: no fever, chills, nightsweats, unintentional weight change, or change in appetite Cutaneous: no rash, pruritus Head: no headaches or injury Eyes: no changes in vision, eye pain, double vision Ears: no ear pain, ear discharge, ringing or hearing loss Nose: no nose bleeding, stuffiness Mouth & throat: no bleeding gums, no horseness, no dental problems, or swollen glands Neck: no pain, node enlargement/lumps, tyroid enlargement or tenderness Respiratory: no cough, wheezing, sputum, hemoptysis, pleuritic chest pain Cardiovascular: no chest pain, leg edema, cyanosis, PISANO, orthopnea Musculoskeletal: Eroded nail bed with ulcer on right great toe. Superficial ulcer to right pinkie toe, pain with movement Gastrointestinal: no nausea, vomiting, hematemesis, diarrhea, constipation, melena, bright red blood in stools, fecal incontinence, jaundice Neurogical: no seizures, no headaches, no weakness, no paresthesias, no loss of speech or vision; no memory loss, no vertigo, no tremors, no numbness Psychiatric: stable mood; no excessive anxiety, sadness or moodiness Past History Past Medical History: cancer (breast cancer), diabetes ([id number]), hypertension, hyperlipidemia Past Surgical History: mastectomy (left) Social history: lives with family Family history: no significant family history Medications and Allergies Allergies Allergy/AdvReac Type Severity Reaction Status Date / Time No Known Allergies Allergy Verified 04/05/19 15:30 Home Medications Medication Instructions Recorded Confirmed Last Taken Type Ibuprofen [Motrin] 800 mg PO Q8HR PRN #21 tablet 12/08/18 04/06/19 Unknown Rx Gabapentin [Neurontin] 300 mg PO BID 04/05/19 04/06/19 Unknown History Losartan [Cozaar] 100 mg PO QDAY 04/05/19 04/06/19 Unknown History Metoprolol [Lopressor TAB] 25 mg PO QDAY 04/05/19 04/06/19 Unknown History Ranitidine HCl [Zantac] 300 mg PO QDAY 04/05/19 04/06/19 Unknown History Simvastatin 40 mg PO QHS 04/05/19 04/06/19 Unknown History Vitamin D2 50,000 units PO QWEEK 04/05/19 04/06/19 Unknown History amLODIPine [Norvasc] 10 mg PO DAILY 04/05/19 04/05/19 Unknown History metFORMIN [Glucophage] 500 mg PO QHS 04/05/19 04/06/19 Unknown History Active Meds: Active Medications Acetaminophen (Tylenol) 650 mg PO Q4H PRN PRN Reason: Pain MILD(1-3)/Fever >100.5/HYLTON Aspirin (Baby Aspirin) 81 mg PO QDAY [facility] Last Admin: 04/06/19 09:28 Dose: 81 mg Documented by: Atorvastatin Calcium (Lipitor) 20 mg PO QHS [facility] Last Admin: 04/05/19 23:01 Dose: 20 mg Documented by: Dextrose (D50w (25gm) Syringe) 50 ml IV PRN PRN PRN Reason: Hypoglycemia Enoxaparin Sodium (Lovenox) 40 mg SUB-Q QDAY [facility] Last Admin: 04/06/19 09:28 Dose: 40 mg Documented by: Ampicillin Sodium/Sulbactam Sodium (Unasyn/Ns 1.5 Gm/50 Ml) 1.5 gm in 50 mls @ 100 mls/hr IV Q6HR [facility]; Protocol Last Admin: 04/06/19 05:21 Dose: 100 mls/hr Documented by: Vancomycin HCl 750 mg/ Sodium (Chloride) 265 mls @ 166.667 mls/hr IV Q24H [facility] Insulin Human Lispro (Humalog) 0 unit SUB-Q ACHS [facility]; Protocol Last Admin: 04/06/19 07:55 Dose: Not Given Documented by: Ondansetron HCl (Zofran) 4 mg IV Q8H PRN PRN Reason: Nausea And Vomiting Oxycodone/Acetaminophen (Percocet 5/325) 1 tab PO Q6H PRN PRN Reason: Pain, Moderate (4-6) Last Admin: 04/06/19 08:38 Dose: 1 tab Documented by: Sodium Chloride (Sodium Chloride Flush Syringe 10 Ml) 10 ml IV BID [facility] Last Admin: 04/05/19 23:02 Dose: 10 ml Documented by: Sodium Chloride (Sodium Chloride Flush Syringe 10 Ml) 10 ml IV PRN PRN PRN Reason: LINE FLUSH Physical Examination - Physical Exam Narrative exam: Constitutional: Alert, cooperative. No acute distress Head, Ears, Nose: Normocephalic, atraumatic. External ears, nose normal Eyes: Conjunctivae/corneas clear. No icterus. No ptosis. Neck: Supple, no meningeal signs Oral: dentition fair. No thrush Cardiovascular: S1, S2 normal. Respiratory: Good air entry, clear to auscultation bilaterally GI: Soft, non-tender; bowel sounds normal. No peritoneal signs Musculoskeletal: Eroded nail bed with ulcer on right great toe. Superficial ulcer to right pinkie toe. Pain with movement Skin: dry skin. Hem/Lymphatic: No palpable cervical or supraclavicular nodes. No lymphangitis Psych: Mood ok. Affect normal Neurological: Awake, alert, oriented. - Constitutional Vitals: Vital Signs Temp Pulse Resp BP Pulse Ox 97.4 F L 73 18 169/72 98 04/06/19 07:11 04/06/19 07:11 04/06/19 07:11 04/06/19 07:11 04/06/19 07:11 Temperature -Last 24 Hours Temperature 97.4 F Temperature 97.3 F Temperature 98.5 F Temperature 98.0 F Results - Labs CBC & Chem 7: 04/06/19 05:20 04/06/19 05:20 Labs: Abnormal lab results 04/05/19 04/05/19 04/05/19 Range/Units 16:53 16:53 17:12 Hgb (10.1-14.3) gm/dl MCH 27 L (28-32) pg RDW 22.2 H (13.2-15.2) % [place] % (Auto) (0.0-7.3) % Eos % (Auto) (0.0-4.3) % Carbon Dioxide 21 L (22-30) mmol/L Creatinine 0.6 L (0.7-1.2) mg/dL Glucose 102 H (65-100) mg/dL POC Glucose 109 H (70-105) HDL Cholesterol (40-59) mg/dL 04/05/19 04/06/19 04/06/19 Range/Units 23:12 05:20 05:20 Hgb 9.6 L (10.1-14.3) gm/dl MCH 25 L (28-32) pg RDW 22.3 H (13.2-15.2) % [place] % (Auto) 11.8 H (0.0-7.3) % Eos % (Auto) 5.9 H (0.0-4.3) % Carbon Dioxide (22-30) mmol/L Creatinine 0.5 L (0.7-1.2) mg/dL Glucose 104 H (65-100) mg/dL POC Glucose 172 H (70-105) HDL Cholesterol 66 H (40-59) mg/dL 04/06/19 Range/Units 07:15 Hgb (10.1-14.3) gm/dl MCH (28-32) pg RDW (13.2-15.2) % [place] % (Auto) (0.0-7.3) % Eos % (Auto) (0.0-4.3) % Carbon Dioxide (22-30) mmol/L Creatinine (0.7-1.2) mg/dL Glucose (65-100) mg/dL POC Glucose 109 H (70-105) HDL Cholesterol (40-59) mg/dL Assessment and Plan Cultures: 6/19/19 Blood Cultures: In progress A/P: 83-year old female with a past medical history of type 2 diabetes with neuropathy, hypertentison, HLD, Breast Ca , now in remission, s/p left mastectomy that presents in the ED on 04/05/19 with complaints of worsening chronic right foot pain. She has been under the care of a Web Assistant ([facility] at [address] [place] [address]), for the past 3 months. She reports chronic foot pain for the last several months with pain worse in the right toe, with sharp bilateral lower leg pain. She reports finishing a course of oral antibiotics 2 weeks ago. Admitted with: 1. Chronic Right foot pain: Right great toe nail bed eroded with ulcer. Gemologist yoana blister on the 5th great toe. No odor or purulence. Foot xray show no fractures or evidence of osteomylitis. ESR 38. No leukocytosis. No fever. Blood cultures are in progress. Currently being treated with Unasyn and Vancomycin. 2. PAD: Unable to palpate DP pulses of either foot. Duplex scan shows Occlusion of right mid superficial femoral artery and distal superficial femoral artery. High-grade stenosis of right proximal common femoral artery .The left leg arterial vasculature is patent. Will order vascular consult. 3. Type 2 Diabetes with neuropathy 4.Hx of Breast CA: s/p left mastectomy Plan: -order MRI of right foot to evaluate for osteomyelitis -order CRP -follow-up blood cultures -order vascular consult [facility] M: [phone] O:[phone]
--- NOTE | 2019-04-06 14:23 | Vascular Lab Report ---
PROCEDURE: VL ARTERIAL DUPLEX LE BILAT TECHNIQUE: Duplex Doppler ultrasound of either bilateral lower extremity arteries or arterial bypass grafts was performed with image documentation. HISTORY: inaudible Doppler pulse, c/o BLE pain COMPARISONS: None . FINDINGS: Real-time ultrasound of the right leg and left leg was performed using grayscale and color Doppler images. On the right, peak systolic velocity in the proximal common femoral artery was 474 cm/s and monophasi c; distal common femoral artery 56 cm/s and monophasic; proximal SFA 13 cm/s and biphasic; deep femor al artery 50 cm/s and monophasic. No flow is seen in the mid superficial femoral artery distal superf icial femoral artery. Peak systolic velocity in the popliteal artery was 13 cm/s and monophasic; post erior tibial artery 24 cm/s and monophasic; anterior tibial artery 31 cm/s and monophasic. 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
--- NOTE | 2019-04-06 15:07 | Progress Note ---
Assessment and Plan Assessment and plan: Right great toe ulcer - Patient was treated antibiotics for 2 weeks of outpatient is no improvement - Currently on IV vancomycin and Unasyn - ID consult appreciated - Pending MRI to rule out osteomyelitis Peripheral vascular disease - Leg arteriogram is pending Diabetes mellitus - Well-controlled - A1c is 5.7 - Sliding-scale insulin Hypertension - Continue amlodipine and metoprolol DVT Prophylaxis Disposition; continue present care, follow-up MRI and arteriogram History Interval history: Patient was seen in the later this morning, patient is alert and oriented. Patient doesn't complain any pain in her leg. Hospitalist Physical - Physical exam Narrative exam: Not in cardiopulmonary distress. The patient appeared well nourished and normally developed. Vital signs as documented. Head exam is unremarkable. No scleral icterus . Neck is without jugular venous distension, thyromegaly, or carotid bruits. Lungs are clear to auscultation. Cardiac exam reveals regular rate and Rhythm. First and second heart sounds normal. No murmurs, rubs or gallops. Abdominal exam reveals normal bowel sounds, no masses, no organomegaly and no aortic enlargement. Extremities clean dressing on the right foot. 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 No focal weakness. - Constitutional Vitals: Temp Pulse Resp BP Pulse Ox 97.4 F L 73 18 169/72 98 04/06/19 07:11 04/06/19 07:11 04/06/19 07:11 04/06/19 07:11 04/06/19 07:11 Results - Labs CBC & Chem 7: 04/06/19 05:20 04/06/19 05:20 Labs: Laboratory Last Values WBC 5.7 K/mm3 (4.5-11.0) 04/06/19 05:20 RBC 3.79 M/mm3 (3.65-5.03) 04/06/19 05:20 Hgb 9.6 gm/dl (10.1-14.3) L 04/06/19 05:20 Hct 30.5 % (30.3-42.9) 04/06/19 05:20 MCV 80 fl (79-97) 04/06/19 05:20 MCH 25 pg (28-32) L 04/06/19 05:20 MCHC 32 % (30-34) 04/06/19 05:20 RDW 22.3 % (13.2-15.2) H 04/06/19 05:20 Plt Count 333 K/mm3 (140-440) 04/06/19 05:20 Lymph % (Auto) 21.2 % (13.4-35.0) 04/06/19 05:20 [place] % (Auto) 11.8 % (0.0-7.3) H 04/06/19 05:20 Eos % (Auto) 5.9 % (0.0-4.3) H 04/06/19 05:20 Baso % (Auto) 1.0 % (0.0-1.8) 04/06/19 05:20 Lymph # 1.2 K/mm3 (1.2-5.4) 04/06/19 05:20 [place] # 0.7 K/mm3 (0.0-0.8) 04/06/19 05:20 Eos # 0.3 K/mm3 (0.0-0.4) 04/06/19 05:20 Baso # 0.1 K/mm3 (0.0-0.1) 04/06/19 05:20 Seg Neutrophils % 60.1 % (40.0-70.0) 04/06/19 05:20 Seg Neutrophils # 3.4 K/mm3 (1.8-7.7) 04/06/19 05:20 ESR 38 mm/Hr (0-20) 04/05/19 16:53 Sodium 139 mmol/L (137-145) 04/06/19 05:20 Potassium 3.8 mmol/L (3.6-5.0) 04/06/19 05:20 Chloride 101.4 mmol/L (98-107) 04/06/19 05:20 Carbon Dioxide 24 mmol/L (22-30) 04/06/19 05:20 17 mmol/L 04/06/19 05:20 BUN 10 mg/dL (7-17) 04/06/19 05:20 0.5 mg/dL (0.7-1.2) L 04/06/19 05:20 Estimated GFR > 60 ml/min 04/06/19 05:20 20 % 04/06/19 05:20 Glucose 104 mg/dL (65-100) H 04/06/19 05:20 POC Glucose 99 (70-105) 04/06/19 12:23 5.7 % (4-6) 04/05/19 20:35 Calcium 9.4 mg/dL (8.4-10.2) 04/06/19 05:20 0.20 mg/dL (0.1-1.2) 04/05/19 16:53 AST 18 units/L (5-40) 04/05/19 16:53 ALT 18 units/L (7-56) 04/05/19 16:53 97 units/L (35-129) 04/05/19 16:53 8.2 g/dL (6.3-8.2) 04/05/19 16:53 4.1 g/dL (3.9-5) 04/05/19 16:53 1.0 % 04/05/19 16:53 Triglycerides 39 mg/dL (2-149) 04/06/19 05:20 Cholesterol 167 mg/dL (50-199) 04/06/19 05:20 96 mg/dL (50-130) 04/06/19 05:20 66 mg/dL (40-59) H 04/06/19 05:20 2.53 % 04/06/19 05:20 Active Medications - Current Medications Current Medications: Generic Name Dose Route Start Last Admin Trade Name Freq PRN Reason Stop Dose Admin Acetaminophen 650 mg 04/05/19 20:21 Tylenol PO Q4H PRN Pain MILD(1-3)/Fever >100.5/HYLTON Amlodipine Besylate 10 mg 04/06/19 15:00 Norvasc PO DAILY KHARI Aspirin 81 mg 04/06/19 10:00 04/06/19 09:28 Baby Aspirin PO 81 mg QDAY KHARI Administration Atorvastatin Calcium 20 mg 04/05/19 22:00 04/05/19 23:01 Lipitor PO 20 mg QHS KHARI Administration Dextrose 50 ml 04/05/19 20:21 D50w (25gm) Syringe IV PRN PRN Hypoglycemia Enoxaparin Sodium 40 mg 04/06/19 10:00 04/06/19 09:28 Lovenox SUB-Q 40 mg QDAY KHARI Administration Gabapentin 300 mg 04/06/19 15:00 Neurontin PO BID KHARI Ampicillin Sodium/Sulbactam Sodium 1.5 gm in 50 mls @ 100 mls/hr 04/06/19 00 :00 04/06/19 12:20 Unasyn/Ns 1.5 Gm/50 Ml IV 100 mls/hr Q6HR K[facility]ARI Administration Protocol Vancomycin HCl 750 mg/ Sodium 265 mls @ 166.667 mls/hr 04/06/19 20:00 Chloride IV Q24H [facility] Insulin Human Lispro 0 unit 04/05/19 22:00 04/06/19 07:55 Humalog SUB-Q Not Given ACHS [facility] Protocol Metoprolol Tartrate 25 mg 04/06/19 15:00 Lopressor PO QDAY KHARI Ondansetron HCl 4 mg 04/05/19 20:21 Zofran IV Q8H PRN Nausea And Vomiting Oxycodone/Acetaminophen 1 tab 04/05/19 20:21 04/06/19 08:38 Percocet 5/325 PO 1 tab Q6H PRN Administration Pain, Moderate (4-6) Sodium Chloride 10 ml 04/05/19 22:00 04/05/19 23:02 Sodium Chloride Flush Syringe 10 Ml IV 10 ml BID KHARI Administration Sodium Chloride 10 ml 04/05/19 20:21 Sodium Chloride Flush Syringe 10 Ml IV PRN PRN LINE FLUSH
[2019-04-06] MEDS ORDERED: NORVASC PO ONE ×2 (20:11→21:00)
[2019-04-06] MEDS: APRESOLINE IV PRN (20:49)
[2019-04-06] MEDS: VANCOMYCIN 750 MG in NACL 0.9% 250ML 250 ML IV SCH (22:14)
[2019-04-06] MEDS: SODIUM CHLORIDE FLUSH SYRINGE 10 ML IV SCH (22:15)
[2019-04-06] MEDS: NEURONTIN PO SCH (22:15)
[2019-04-07] MEDS: UNASYN/NS 1.5 GM/50 ML 1.5 GM/50 ML BAG IV SCH ×4 (00:46→17:23)
[2019-04-07 00:54] LABS: Hematocrit 32.1 % (30.3-42.9); Hemoglobin 10.3 gm/dl (10.1-14.3); Mean Corpuscular HGB Conc 32 % (30-34); Mean Corpuscular Volume 80 fl (79-97); Platelet Count 346 K/mm3 (140-440); Red Blood Count 4.03 M/mm3 (3.65-5.03)
[2019-04-07 01:03] LABS: Red Cell Distribution Width 21.4 % (13.2-15.2)
[2019-04-07] MEDS: APRESOLINE IV PRN ×2 (03:45→08:11)
[2019-04-07] MEDS: HumaLOG SUB-Q SCH ×3 (07:30→16:51)
[2019-04-07] MEDS: SODIUM CHLORIDE FLUSH SYRINGE 10 ML IV SCH ×3 (08:17→22:41)
[2019-04-07] MEDS: LOPRESSOR PO SCH ×2 (08:26→10:20)
[2019-04-07] MEDS: NORVASC PO SCH ×2 (08:26→10:20)
[2019-04-07] MEDS: NEURONTIN PO SCH ×3 (08:26→22:36)
--- NOTE | 2019-04-07 08:46 | Progress Note ---
Assessment and Plan Cultures: 04/05/19 Blood Cultures: No growth to date A/P: 83-year old female with a past medical history of type 2 diabetes with neuropathy, hypertentison, HLD, Breast Ca , now in remission, s/p left mastectomy that presents in the ED on 04/05/19 with complaints of worsening chronic right foot pain. She has been under the care of a Head Piece Assembler ([facility] at [address] [place] [address]), for the past 3 months. She reports chronic foot pain for the last several months with pain worse in the right toe, with sharp bilateral lower leg pain. She reports finishing a course of oral antibiotics 2 weeks ago. Admitted with: 1. 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 Chronic blister on the 5th great toe. No odor or purulence. Foot xray show no fractures or evidence of osteomylitis. ESR 38. CRP .60 . No leukocytosis. No fever. Blood cultures are in progress. Currently being treated with Unasyn and Vancomycin. 2. PAD: Unable to palpate DP pulses of either foot. Duplex scan shows Occlusion of right mid superficial femoral artery and distal superficial femoral artery. High-grade stenosis of right proximal common femoral artery .The left leg arterial vasculature is patent. Dr. Patrick following, recommends yuki scularization procedure of the right SFA. Patient may ultimately require right common femoral artery endarterectomy. 3. Type 2 Diabetes with neuropathy 4.Hx of Breast CA: s/p left mastectomy Plan: -continue Unasyn and Vancomycin -follow-up MRI of right foot to evaluate for osteomyelitis -antibiotic duration depends on MRI results -follow-up blood cultures -agree with revascularization procedure of the right SFA - wound care consult ordered We will round on this patient on Wednesday. Dr. Lane will be microsoft dynamics ax consultant this weekend, . Please call for questions. [facility] M: [phone] O:[phone] Subjective Date of service: 04/07/19 Interval history: Patient seen and examined. Laying in the bed asleep, easy to arouse. Reports no pain at this time. Objective - Exam Narrative Exam: Constitutional: Alert, cooperative. No acute distress Head, Ears, Nose: Normocephalic, atraumatic. External ears, nose normal Eyes: Conjunctivae/corneas clear. No icterus. No ptosis. Neck: Supple, no meningeal signs Oral: dentition fair. No thrush Cardiovascular: S1, S2 normal. Respiratory: Good air entry, clear to auscultation bilaterally GI: Soft, non-tender; bowel sounds normal. No peritoneal signs Musculoskeletal: Eroded nail bed with ulcer on right great toe. ?dry gangrene. Superficial ulcer to right pinkie toe. Pain with movement Skin: dry skin. Hem/Lymphatic: No palpable cervical or supraclavicular nodes. No lymphangitis Psych: Mood ok. Affect normal Neurological: Awake, alert, oriented. - Constitutional Vitals: Vital Signs Temp Pulse Resp BP Pulse Ox 98.0 F 119 H 18 213/92 99 04/07/19 07:24 04/07/19 08:11 04/07/19 07:24 04/07/19 08:11 04/07/19 07:24 Temperature -Last 24 Hours Temperature 98.0 F Temperature 98.3 F Temperature 97.4 F - Labs CBC & Chem 7: 04/07/19 00:36 04/06/19 05:20 Labs: Abnormal lab results 04/06/19 04/06/19 04/07/19 Range/Units 16:02 21:33 00:36 MCH 26 L (28-32) pg RDW 21.4 H (13.2-15.2) % POC Glucose 132 H 120 H (70-105) 04/07/19 Range/Units 07:31 MCH (28-32) pg RDW (13.2-15.2) % POC Glucose 118 H (70-105)
[2019-04-07] MEDS: LOVENOX SUB-Q SCH (10:19)
[2019-04-07] MEDS: BABY ASPIRIN PO SCH (10:20)
--- NOTE | 2019-04-07 11:37 | Consultation ---
History of Present Illness - Reason for Consult Consult date: 04/07/19 right leg and foot pain with nonhealing wound of right first toe - History of Present Illness Patient with a history of peripheral vascular disease and right lower extremity pain from the knee distally. She has a nonhealing ulcer on the tip of her right first toe. Ultrasound demonstrates high-grade stenosis in the right common femoral artery as well as occlusion of the right superficial femoral artery with reconstitution of the left heel artery. The left vasculature is patent. Past History Past Medical History: cancer (breast cancer), diabetes ([id number]), hypertension, hyperlipidemia, PVD Past Surgical History: mastectomy (left) Social history: lives with family Family history: no significant family history Medications and Allergies Allergies Allergy/AdvReac Type Severity Reaction Status Date / Time No Known Allergies Allergy Verified 04/05/19 15:30 Home Medications Medication Instructions Recorded Confirmed Last Taken Type Ibuprofen [Motrin] 800 mg PO Q8HR PRN #21 tablet 12/08/18 04/06/19 Unknown Rx Gabapentin [Neurontin] 300 mg PO BID 04/05/19 04/06/19 Unknown History Losartan [Cozaar] 100 mg PO QDAY 04/05/19 04/06/19 Unknown History Metoprolol [Lopressor TAB] 25 mg PO QDAY 04/05/19 04/06/19 Unknown History Ranitidine HCl [Zantac] 300 mg PO QDAY 04/05/19 04/06/19 Unknown History Simvastatin 40 mg PO QHS 04/05/19 04/06/19 Unknown History Vitamin D2 50,000 units PO QWEEK 04/05/19 04/06/19 Unknown History amLODIPine [Norvasc] 10 mg PO DAILY 04/05/19 04/05/19 Unknown History metFORMIN [Glucophage] 500 mg PO QHS 04/05/19 04/06/19 Unknown History Active Meds: Active Medications Acetaminophen (Tylenol) 650 mg PO Q4H PRN PRN Reason: Pain MILD(1-3)/Fever >100.5/HYLTON Amlodipine Besylate (Norvasc) 10 mg PO DAILY [facility] Last Admin: 04/07/19 10:20 Dose: 10 mg Documented by: Aspirin (Baby Aspirin) 81 mg PO QDAY [facility] Last Admin: 04/07/19 10:20 Dose: 81 mg Documented by: Atorvastatin Calcium (Lipitor) 20 mg PO QHS [facility] Last Admin: 04/06/19 22:15 Dose: 20 mg Documented by: Dextrose (D50w (25gm) Syringe) 50 ml IV PRN PRN PRN Reason: Hypoglycemia Enoxaparin Sodium (Lovenox) 40 mg SUB-Q QDAY [facility] Last Admin: 04/07/19 10:19 Dose: 40 mg Documented by: Gabapentin (Neurontin) 300 mg PO BID [facility] Last Admin: 04/07/19 10:20 Dose: 300 mg Documented by: Hydralazine HCl (Apresoline) 10 mg IV Q4HR PRN PRN Reason: SBP>160 OR DBP>100 Last Admin: 04/07/19 08:11 Dose: 10 mg Documented by: Ampicillin Sodium/Sulbactam Sodium (Unasyn/Ns 1.5 Gm/50 Ml) 1.5 gm in 50 mls @ 100 mls/hr IV Q6HR [facility]; Protocol Last Admin: 04/07/19 08:12 Dose: Not Given Documented by: Vancomycin HCl 750 mg/ Sodium (Chloride) 265 mls @ 166.667 mls/hr IV Q24H [facility] Last Admin: 04/06/19 22:14 Dose: 166.667 mls/hr Documented by: Insulin Human Lispro (Humalog) 0 unit SUB-Q ACHS [facility]; Protocol Last Admin: 04/07/19 07:30 Dose: Not Given Documented by: Metoprolol Tartrate (Lopressor) 25 mg PO QDAY [facility] Last Admin: 04/07/19 10:20 Dose: 25 mg Documented by: Ondansetron HCl (Zofran) 4 mg IV Q8H PRN PRN Reason: Nausea And Vomiting Oxycodone/Acetaminophen (Percocet 5/325) 1 tab PO Q6H PRN PRN Reason: Pain, Moderate (4-6) Last Admin: 04/06/19 19:14 Dose: 1 tab Documented by: Sodium Chloride (Sodium Chloride Flush Syringe 10 Ml) 10 ml IV BID [facility] Last Admin: 04/07/19 08:17 Dose: Not Given Documented by: Sodium Chloride (Sodium Chloride Flush Syringe 10 Ml) 10 ml IV PRN PRN PRN Reason: LINE FLUSH Review of Systems ROS unobtainable: due to mental status Exam - Constitutional Vitals: Temp Pulse Resp BP Pulse Ox 98.0 F 92 H 18 157/66 99 04/07/19 07:24 04/07/19 10:50 04/07/19 10:50 04/07/19 10:20 04/07/19 10:50 General appearance: Present: no acute distress - EENT Eyes: Present: EOM intact ENT: hearing intact - Neck Neck: Present: supple, normal ROM - Respiratory Respiratory effort: normal - Extremities Extremities: abnormal (per HPI) - Abdominal General gastrointestinal: Present: deferred - Rectal Rectal Exam: deferred - Psychiatric Psychiatric: cooperative Results - Labs CBC & Chem 7: 04/07/19 00:36 04/06/19 05:20 Labs: Abnormal lab results 04/06/19 04/06/19 04/07/19 Range/Units 16:02 21:33 00:36 MCH 26 L (28-32) pg RDW 21.4 H (13.2-15.2) % POC Glucose 132 H 120 H (70-105) 04/07/19 Range/Units 07:31 MCH (28-32) pg RDW (13.2-15.2) % POC Glucose 118 H (70-105) - Imaging and Cardiology Venous US: image reviewed Assessment and Plan The patient will be scheduled for revascularization procedure of the right SFA. Additionally, the patient may ultimately require right common femoral artery endarterectomy will allow wound healing. Would recommend that the patient be seen by wound care.
--- NOTE | 2019-04-07 15:03 | Progress Note ---
Assessment and Plan Assessment and plan: Right great toe ulcer - Patient was treated antibiotics for 2 weeks of outpatient is no improvement - Currently on IV vancomycin and Unasyn - ID consult appreciated - Pending MRI to rule out osteomyelitis Peripheral vascular disease - Leg arteriogram Showed PAD - Vascular surgery consulted and said will do revasculaization. Diabetes mellitus - Well-controlled - A1c is 5.7 - Sliding-scale insulin Hypertension - Continue amlodipine and metoprolol DVT Prophylaxis Disposition; continue present care, follow-up MRI and arteriogram History Interval history: Patient was seen in the later this morning, patient is alert and oriented. Patient doesn't complain any pain in her leg. Hospitalist Physical - Physical exam Narrative exam: Not in cardiopulmonary distress. The patient appeared well nourished and normally developed. Vital signs as documented. Head exam is unremarkable. No scleral icterus . Neck is without jugular venous distension, thyromegaly, or carotid bruits. Lungs are clear to auscultation. Cardiac exam reveals regular rate and Rhythm. First and second heart sounds normal. No murmurs, rubs or gallops. Abdominal exam reveals normal bowel sounds, no masses, no organomegaly and no aortic enlargement. Extremities clean dressing on the right foot. 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 - Constitutional Vitals: Temp Pulse Resp BP Pulse Ox 97.9 F 86 20 129/55 99 04/07/19 13:20 04/07/19 13:20 04/07/19 13:20 04/07/19 13:20 04/07/19 13:20 General appearance: Present: no acute distress Results - Labs CBC & Chem 7: 04/07/19 00:36 04/06/19 05:20 Labs: Laboratory Last Values WBC 4.8 K/mm3 (4.5-11.0) 04/07/19 00:36 RBC 4.03 M/mm3 (3.65-5.03) 04/07/19 00:36 Hgb 10.3 gm/dl (10.1-14.3) 04/07/19 00:36 Hct 32.1 % (30.3-42.9) 04/07/19 00:36 MCV 80 fl (79-97) 04/07/19 00:36 MCH 26 pg (28-32) L 04/07/19 00:36 MCHC 32 % (30-34) 04/07/19 00:36 RDW 21.4 % (13.2-15.2) H 04/07/19 00:36 Plt Count 346 K/mm3 (140-440) 04/07/19 00:36 Lymph % (Auto) 21.2 % (13.4-35.0) 04/06/19 05:20 [place] % (Auto) 11.8 % (0.0-7.3) H 04/06/19 05:20 Eos % (Auto) 5.9 % (0.0-4.3) H 04/06/19 05:20 Baso % (Auto) 1.0 % (0.0-1.8) 04/06/19 05:20 Lymph # 1.2 K/mm3 (1.2-5.4) 04/06/19 05:20 [place] # 0.7 K/mm3 (0.0-0.8) 04/06/19 05:20 Eos # 0.3 K/mm3 (0.0-0.4) 04/06/19 05:20 Baso # 0.1 K/mm3 (0.0-0.1) 04/06/19 05:20 Seg Neutrophils % 60.1 % (40.0-70.0) 04/06/19 05:20 Seg Neutrophils # 3.4 K/mm3 (1.8-7.7) 04/06/19 05:20 ESR 38 mm/Hr (0-20) 04/05/19 16:53 Sodium 139 mmol/L (137-145) 04/06/19 05:20 Potassium 3.8 mmol/L (3.6-5.0) 04/06/19 05:20 Chloride 101.4 mmol/L (98-107) 04/06/19 05:20 Carbon Dioxide 24 mmol/L (22-30) 04/06/19 05:20 17 mmol/L 04/06/19 05:20 BUN 10 mg/dL (7-17) 04/06/19 05:20 0.5 mg/dL (0.7-1.2) L 04/06/19 05:20 Estimated GFR > 60 ml/min 04/06/19 05:20 20 % 04/06/19 05:20 Glucose 104 mg/dL (65-100) H 04/06/19 05:20 POC Glucose 144 (70-105) H 04/07/19 11:36 5.7 % (4-6) 04/05/19 20:35 Calcium 9.4 mg/dL (8.4-10.2) 04/06/19 05:20 0.20 mg/dL (0.1-1.2) 04/05/19 16:53 AST 18 units/L (5-40) 04/05/19 16:53 ALT 18 units/L (7-56) 04/05/19 16:53 97 units/L (35-129) 04/05/19 16:53 0.60 mg/dL (0.00-1.30) 04/07/19 00:36 8.2 g/dL (6.3-8.2) 04/05/19 16:53 4.1 g/dL (3.9-5) 04/05/19 16:53 1.0 % 04/05/19 16:53 Triglycerides 39 mg/dL (2-149) 04/06/19 05:20 Cholesterol 167 mg/dL (50-199) 04/06/19 05:20 96 mg/dL (50-130) 04/06/19 05:20 66 mg/dL (40-59) H 04/06/19 05:20 2.53 % 04/06/19 05:20 Active Medications - Current Medications Current Medications: Generic Name Dose Route Start Last Admin Trade Name Freq PRN Reason Stop Dose Admin Acetaminophen 650 mg 04/05/19 20:21 Tylenol PO Q4H PRN Pain MILD(1-3)/Fever >100.5/HYLTON Amlodipine Besylate 10 mg 04/06/19 15:00 04/07/19 10:20 Norvasc PO 10 mg DAILY [facility]I Administration Aspirin 81 mg 04/06/19 10:00 04/07/19 10:20 Baby Aspirin PO 81 mg QDAY K[facility]ARI Administration Atorvastatin Calcium 20 mg 04/05/19 22:00 04/06/19 22:15 Lipitor PO 20 mg QHS [facility]ARI Administration Dextrose 50 ml 04/05/19 20:21 D50w (25gm) Syringe IV PRN PRN Hypoglycemia Enoxaparin Sodium 40 mg 04/06/19 10:00 04/07/19 10:19 Lovenox SUB-Q 40 mg QDAY K[facility]ARI Administration Gabapentin 300 mg 04/06/19 16:00 04/07/19 10:20 Neurontin PO 300 mg BID K[facility]ARI Administration Hydralazine HCl 10 mg 04/06/19 20:11 04/07/19 08:11 Apresoline IV 10 mg Q4HR PRN Administration SBP>160 OR DBP>100 Ampicillin Sodium/Sulbactam Sodium 1.5 gm in 50 mls @ 100 mls/hr 04/06/19 00:00 04/07/19 12:50 Unasyn/Ns 1.5 Gm/50 Ml IV 100 mls/hr Q6HR [facility] Administration Protocol Vancomycin HCl 750 mg/ Sodium 265 mls @ 166.667 mls/hr 04/06/19 20:00 04/06/19 22:14 Chloride IV 166.667 mls/hr Q24H [facility] Administration Insulin Human Lispro 0 unit 04/05/19 22:00 04/07/19 12:07 Humalog SUB-Q Not Given ACHS [facility] Protocol Metoprolol Tartrate 25 mg 04/06/19 16:00 04/07/19 10:20 Lopressor PO 25 mg QDAY [facility]ARI Administration Ondansetron HCl 4 mg 04/05/19 20:21 Zofran IV Q8H PRN Nausea And Vomiting Oxycodone/Acetaminophen 1 tab 04/05/19 20:21 04/06/19 19:14 Percocet 5/325 PO 1 tab Q6H PRN Administration Pain, Moderate (4-6) Sodium Chloride 10 ml 04/05/19 22:00 04/07/19 12:50 Sodium Chloride Flush Syringe 10 Ml IV 10 ml BID KHARI Administration Sodium Chloride 10 ml 04/05/19 20:21 Sodium Chloride Flush Syringe 10 Ml IV PRN PRN LINE FLUSH Nutrition/Malnutrition Assess - Dietary Evaluation Nutrition/Malnutrition Findings: Nutrition Notes Start: 04/06/19 15:21 Freq: Status: Active Protocol: Document 04/06/19 15:21 RM (Rec: 04/06/19 15:28 RM [id number]) Nutrition Notes 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 Anand 19 points. Pt not in room at time of visit. Per tech pt ate all of breakfast. Percent of energy/protein needs met: 100%/100% Burn Absent Trauma Absent #2 Nutrition Diagnosis Underweight Etiology Hx breast cancer As Evidenced by Signs and Symptoms BMI 17.6 #1 Nutrition Diagnosis Predicted suboptimal energy intake Etiology Hx breast cancer As Evidenced by Signs and Symptoms BMI 17.6 Is patient on ventilator? No Is Patient Ambulatory and/or Out of Bed No REE-([place]-confined to bed) 1162.764 Kcal/Kg value to use for calculation 29 Approximate Energy Requirements Using 1438 kcal/Kg Calculation Used for Recommendations Kcal/kg Additional Notes Protein Needs: 59-74g (1.2-1. 5g/kg) Fluid Needs: 1 ml/kcal Nutrition Intervention Change Diet Order: Continue current Add Supplement/Snack (indicate name/kcal Glucerna 1 daily /protein ) Provides kCal: 220 Provides Protein (gm) 10 Goal #1 Meet at least 75% of calorie and protein needs via PO and ONS intakes Goal #2 Wt gain/maintenance Anticipated Discharge Needs: Cardiac/Consistent CHO diet Follow-Up By: 04/10/19 Additional Comments Follow for malnutrition assessment,stable PO and ONS intakes
--- NOTE | 2019-04-07 16:15 | Magnetic Resonance Report ---
PROCEDURE: MR LE JOINT RT WO/W CON HISTORY: Evaluate for osteomyelitis FINDINGS: MRI of the right foot was performed using short axis TII, short axis TI, long axis TI, long axis fat saturated T2, likely axis inversion recovery, sagittal T1, sagittal inversion recovery, and sagittal long axis and short axis postcontrast T1-weighted images obtained following the intravenous administration of gadolinium-based contrast. The examination is limited by relatively large view and by inhomogeneous fat suppression. The area of interest is not indicated These images demonstrate abnormal low T1, increased inversion recovery signal within the first distal phalanx,, the third distal phalanx, as well as all of the phalanges of the fourth and fifth digits c onsistent with osteomyelitis. No soft tissue abscess is seen. Signal in the metatarsals and tarsals appears within normal limits. There is no evidence of plantar fasciitis. IMPRESSION: Limited examination due to large [id number] and inhomogeneous fat suppression Findings consistent with osteomyelitis and the first distal phalanx, the third distal phalanx, as wel l as within all of the phalanges of the fourth and fifth digits This document is electronically signed by Quinten Cummings MD., April 07 2019 04:12:48 PM ET
[2019-04-07] MEDS: PERCOCET 5/325 PO PRN (17:50)
--- NOTE | 2019-04-07 21:46 | Cat Scan Report ---
PROCEDURE: CT ANGIO ABD/FEMORAL ABD AORTA HISTORY: toe gangrene with pvd FINDINGS: Contrast-enhanced CT angiography of the abdomen, pelvis and both legs was performed following the int ravenous administration of iodinated contrast. The heart is mildly large. There is coronary artery calcification. There is left lower lobe linear scar versus atelectasis. ABDOMEN: The abdominal aorta is atherosclerotic but normal in size There is a high-grade stenosis of the origin of the celiac axis but the vessel remains patent. There is also a high-grade stenosis of the proximal superior mesenteric artery which also remains patent. T he inferior mesenteric artery is patent. There is a large amount of plaque at the origin of both renal arteries, consistent with renal artery stenosis. No suspect focal hepatic lesion is seen. The spleen is normal in size. There is a low-density right a drenal nodule, 1.7 cm consistent with adenoma. There is a low-density left adrenal nodule, 1.4 cm als o consistent with adenoma. No focal pancreatic lesion is seen. There is wall thickening gastric antrum, image 60 consistent with gastritis. Pelvis: The common iliac, external iliac, internal iliac and common femoral arteries are atherosclerotic but patent bilaterally. There is no adnexal mass. The uterus and urinary bladder are within normal limits. CTA right leg: The superficial femoral and deep femoral arteries are atherosclerotic but patent at th eir origins. There is occlusion of the right superficial femoral artery 18 cm superior to the knee radha int. There is reconstitution at the level of the popliteal. The anterior tibial artery is patent and continues to the level ankle giving rise to a dorsalis pedis . The posterior tibial is patent and gives rise to medial plantar arch. The peroneal artery is diffus nilton atherosclerotic but appears likely to be patent to the level of the ankle. CTA left leg: The superficial femoral and deep femoral arteries are both diffusely atherosclerotic. T he superficial femoral artery is patent throughout its course. The popliteal artery is patent. The anterior tibial artery is patent and continues to the level just above the ankle. There is a very small dorsalis pedis which appears patent. The posterior tibial heriberto ry is patent to the level of the ankle and gives rise to a small medial plantar arch. The peroneal ar thi is diffusely atherosclerotic but appears patent to the level of the ankle. 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
[2019-04-07] MEDS: TYLENOL PO PRN (22:35)
[2019-04-07] MEDS: VANCOMYCIN 750 MG in NACL 0.9% 250ML 250 ML IV SCH (22:41)
[2019-04-08] MEDS: UNASYN/NS 1.5 GM/50 ML 1.5 GM/50 ML BAG IV SCH ×4 (00:19→17:44)
[2019-04-08] MEDS: HumaLOG SUB-Q SCH ×4 (00:25→17:40)
[2019-04-08 06:40] LABS: BUN/Creatinine Ratio 15; Blood Urea Nitrogen 9 mg/dL (7-17); Calcium 9.8 mg/dL (8.4-10.2); Hemolysis Index 20
[2019-04-08] MEDS: LOVENOX SUB-Q SCH (09:45)
[2019-04-08] MEDS: BABY ASPIRIN PO SCH (09:45)
[2019-04-08] MEDS: NEURONTIN PO SCH ×2 (09:45→21:26)
[2019-04-08] MEDS: PERCOCET 5/325 PO PRN ×2 (09:46→19:09)
[2019-04-08] MEDS: LOPRESSOR PO SCH (09:51)
[2019-04-08] MEDS: NORVASC PO SCH (09:52)
[2019-04-08] MEDS: SODIUM CHLORIDE FLUSH SYRINGE 10 ML IV SCH (09:54)
--- NOTE | 2019-04-08 12:05 | Progress Note ---
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 Patient will have revascularization Wednesday. History Interval history: Patient was seen in the later this morning, patient is alert and oriented. Patient complains on bilateral feet. Hospitalist Physical - Physical exam Narrative exam: Not in cardiopulmonary distress. The patient appeared well nourished and normally developed. Vital signs as documented. Head exam is unremarkable. No scleral icterus . Neck is without jugular venous distension, thyromegaly, or carotid bruits. Lungs are clear to auscultation. Cardiac exam reveals regular rate and Rhythm. First and second heart sounds normal. No murmurs, rubs or gallops. Abdominal exam reveals normal bowel sounds, no masses, no organomegaly and no aortic enlargement. Extremities clean dressing on the right foot. MANAGER STRATEGY & ACCOUNT: Alert and oriented 3. No focal weakness. - Constitutional Vitals: Temp Pulse Resp BP Pulse Ox 98.0 F 88 18 161/67 98 04/08/19 07:19 04/08/19 09:52 04/08/19 09:15 04/08/19 09:52 04/08/19 09:15 General appearance: Present: no acute distress Results - Labs CBC & Chem 7: 04/07/19 00:36 04/08/19 04:56 Labs: Laboratory Last Values WBC 4.8 K/mm3 (4.5-11.0) 04/07/19 00:36 RBC 4.03 M/mm3 (3.65-5.03) 04/07/19 00:36 Hgb 10.3 gm/dl (10.1-14.3) 04/07/19 00:36 Hct 32.1 % (30.3-42.9) 04/07/19 00:36 MCV 80 fl (79-97) 04/07/19 00:36 MCH 26 pg (28-32) L 04/07/19 00:36 MCHC 32 % (30-34) 04/07/19 00:36 RDW 21.4 % (13.2-15.2) H 04/07/19 00:36 Plt Count 346 K/mm3 (140-440) 04/07/19 00:36 Lymph % (Auto) 21.2 % (13.4-35.0) 04/06/19 05:20 [place] % (Auto) 11.8 % (0.0-7.3) H 04/06/19 05:20 Eos % (Auto) 5.9 % (0.0-4.3) H 04/06/19 05:20 Baso % (Auto) 1.0 % (0.0-1.8) 04/06/19 05:20 Lymph # 1.2 K/mm3 (1.2-5.4) 04/06/19 05:20 [place] # 0.7 K/mm3 (0.0-0.8) 04/06/19 05:20 Eos # 0.3 K/mm3 (0.0-0.4) 04/06/19 05:20 Baso # 0.1 K/mm3 (0.0-0.1) 04/06/19 05:20 Seg Neutrophils % 60.1 % (40.0-70.0) 04/06/19 05:20 Seg Neutrophils # 3.4 K/mm3 (1.8-7.7) 04/06/19 05:20 ESR 38 mm/Hr (0-20) 04/05/19 16:53 Sodium 140 mmol/L (137-145) 04/08/19 04:56 Potassium 3.5 mmol/L (3.6-5.0) L 04/08/19 04:56 Chloride 104.1 mmol/L (98-107) 04/08/19 04:56 Carbon Dioxide 22 mmol/L (22-30) 04/08/19 04:56 17 mmol/L 04/08/19 04:56 BUN 9 mg/dL (7-17) 04/08/19 04:56 0.6 mg/dL (0.7-1.2) L 04/08/19 04:56 Estimated GFR > 60 ml/min 04/08/19 04:56 15 % 04/08/19 04:56 Glucose 110 mg/dL (65-100) H 04/08/19 04:56 POC Glucose 141 (70-105) H 04/08/19 11:55 5.7 % (4-6) 04/05/19 20:35 Calcium 9.8 mg/dL (8.4-10.2) 04/08/19 04:56 0.20 mg/dL (0.1-1.2) 04/05/19 16:53 AST 18 units/L (5-40) 04/05/19 16:53 ALT 18 units/L (7-56) 04/05/19 16:53 97 units/L (35-129) 04/05/19 16:53 0.60 mg/dL (0.00-1.30) 04/07/19 00:36 8.2 g/dL (6.3-8.2) 04/05/19 16:53 4.1 g/dL (3.9-5) 04/05/19 16:53 1.0 % 04/05/19 16:53 Triglycerides 39 mg/dL (2-149) 04/06/19 05:20 Cholesterol 167 mg/dL (50-199) 04/06/19 05:20 96 mg/dL (50-130) 04/06/19 05:20 66 mg/dL (40-59) H 04/06/19 05:20 2.53 % 04/06/19 05:20 Active Medications - Current Medications Current Medications: Generic Name Dose Route Start Last Admin Trade Name Freq PRN Reason Stop Dose Admin Acetaminophen 650 mg 04/05/19 20:21 04/07/19 22:35 Tylenol PO 650 mg Q4H PRN Administration Pain MILD(1-3)/Fever >100.5/HYLTON Amlodipine Besylate 10 mg 04/06/19 15:00 04/08/19 09:52 Norvasc PO 10 mg DAILY KHARI Administration Aspirin 81 mg 04/06/19 10:00 04/08/19 09:45 Baby Aspirin PO 81 mg QDAY KHARI Administration Atorvastatin Calcium 20 mg 04/05/19 22:00 04/07/19 22:36 Lipitor PO 20 mg QHS KHARI Administration Dextrose 50 ml 04/05/19 20:21 D50w (25gm) Syringe IV PRN PRN Hypoglycemia Enoxaparin Sodium 40 mg 04/06/19 10:00 04/08/19 09:45 Lovenox SUB-Q 40 mg QDAY KHARI Administration Gabapentin 300 mg 04/06/19 16:00 04/08/19 09:45 Neurontin PO 300 mg BID KHAIR Administration Hydralazine HCl 10 mg 04/06/19 20:11 04/07/19 08:11 Apresoline IV 10 mg Q4HR PRN Administration SBP>160 OR DBP>100 Ampicillin Sodium/Sulbactam Sodium 1.5 gm in 50 mls @ 100 mls/hr 04/06/19 00:00 04/08/19 05:54 Unasyn/Ns 1.5 Gm/50 Ml IV 100 mls/hr Q6HR KHARI Administration Protocol Vancomycin HCl 750 mg/ Sodium 265 mls @ 166.667 mls/hr 04/06/19 20:00 04/07/19 22:41 Chloride IV 166.667 mls/hr Q24H KHARI Administration Insulin Human Lispro 0 unit 04/05/19 22:00 04/08/19 09:53 Humalog SUB-Q Not Given ACHS [facility] Protocol Metoprolol Tartrate 25 mg 04/06/19 16:00 04/08/19 09:51 Lopressor PO 25 mg QDAY KHARI Administration Ondansetron HCl 4 mg 04/05/19 20:21 Zofran IV Q8H PRN Nausea And Vomiting Oxycodone/Acetaminophen 1 tab 04/05/19 20:21 04/08/19 09:46 Percocet 5/325 PO 1 tab Q6H PRN Administration Pain, Moderate (4-6) Sodium Chloride 10 ml 04/05/19 22:00 04/08/19 09:54 Sodium Chloride Flush Syringe 10 Ml IV 10 ml BID KHARI Administration Sodium Chloride 10 ml 04/05/19 20:21 Sodium Chloride Flush Syringe 10 Ml IV PRN PRN LINE FLUSH Nutrition/Malnutrition Assess - Dietary Evaluation Nutrition/Malnutrition Findings: Nutrition Notes Start: 04/06/19 15:21 Freq: Status: Active Protocol: Document 04/06/19 15:21 RM (Rec: 04/06/19 15:28 RM [id number]) Nutrition Notes 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 Anand 19 points. Pt not in room at time of visit. Per tech pt ate all of breakfast. Percent of energy/protein needs met: 100%/100% Burn Absent Trauma Absent #2 Nutrition Diagnosis Underweight Etiology Hx breast cancer As Evidenced by Signs and Symptoms BMI 17.6 #1 Nutrition Diagnosis Predicted suboptimal energy intake Etiology Hx breast cancer As Evidenced by Signs and Symptoms BMI 17.6 Is patient on ventilator? No Is Patient Ambulatory and/or Out of Bed No REE-([facility]-confined to bed) 1162.764 Kcal/Kg value to use for calculation 29 Approximate Energy Requirements Using 1438 kcal/Kg Calculation Used for Recommendations Kcal/kg Additional Notes Protein Needs: 59-74g (1.2-1. 5g/kg) Fluid Needs: 1 ml/kcal Nutrition Intervention Change Diet Order: Continue current Add Supplement/Snack (indicate name/kcal Glucerna 1 daily /protein ) Provides kCal: 220 Provides Protein (gm) 10 Goal #1 Meet at least 75% of calorie and protein needs via PO and ONS intakes Goal #2 Wt gain/maintenance Anticipated Discharge Needs: Cardiac/Consistent CHO diet Follow-Up By: 04/10/19 Additional Comments Follow for malnutrition assessment,stable PO and ONS intakes
[2019-04-08] MEDS ORDERED: K-DUR PO ONE ×2 (12:06→15:00)
--- NOTE | 2019-04-08 14:46 | Consultation ---
History of Present Illness Consult date: 04/08/19 Reason for consult: wound care Requesting physician: HUGO HANKS Chief complaint: right foot pain - History of present illness History of present illness: 83yo F with chronic history of right foot ulcer and pain. She reports that the right first toe originally developed an ulcer after an attempt was made to cut the nail. The skin was damaged and an ulcer develop. That toe does not cause her any pain. The fifth toe is the one that causes her pain. She has no pain with toes 2 through 4. She decided to come in to the emergency room due to increased pain in the fifth toe. Denies any fevers, chills, nausea, vomiting. She otherwise feels well. Past History Past Medical History: cancer (breast cancer), diabetes ([id number]), hypertension, hyperlipidemia, PVD Past Surgical History: mastectomy (left) Social history: lives with family Family history: no significant family history Medications and Allergies Allergies Allergy/AdvReac Type Severity Reaction Status Date / Time No Known Allergies Allergy Verified 04/05/19 15:30 Home Medications Medication Instructions Recorded Confirmed Last Taken Type Ibuprofen [Motrin] 800 mg PO Q8HR PRN #21 tablet 12/08/18 04/06/19 Unknown Rx Gabapentin [Neurontin] 300 mg PO BID 04/05/19 04/06/19 Unknown History Losartan [Cozaar] 100 mg PO QDAY 04/05/19 04/06/19 Unknown History Metoprolol [Lopressor TAB] 25 mg PO QDAY 04/05/19 04/06/19 Unknown History Ranitidine HCl [Zantac] 300 mg PO QDAY 04/05/19 04/06/19 Unknown History Simvastatin 40 mg PO QHS 04/05/19 04/06/19 Unknown History Vitamin D2 50,000 units PO QWEEK 04/05/19 04/06/19 Unknown History amLODIPine [Norvasc] 10 mg PO DAILY 04/05/19 04/05/19 Unknown History metFORMIN [Glucophage] 500 mg PO QHS 04/05/19 04/06/19 Unknown History Active Meds: Active Medications Acetaminophen (Tylenol) 650 mg PO Q4H PRN PRN Reason: Pain MILD(1-3)/Fever >100.5/HYLTON Last Admin: 04/07/19 22:35 Dose: 650 mg Documented by: Amlodipine Besylate (Norvasc) 10 mg PO DAILY [facility] Last Admin: 04/08/19 09:52 Dose: 10 mg Documented by: Aspirin (Baby Aspirin) 81 mg PO QDAY [facility] Last Admin: 04/08/19 09:45 Dose: 81 mg Documented by: Atorvastatin Calcium (Lipitor) 20 mg PO QHS [facility] Last Admin: 04/07/19 22:36 Dose: 20 mg Documented by: Dextrose (D50w (25gm) Syringe) 50 ml IV PRN PRN PRN Reason: Hypoglycemia Enoxaparin Sodium (Lovenox) 40 mg SUB-Q QDAY [facility] Last Admin: 04/08/19 09:45 Dose: 40 mg Documented by: Gabapentin (Neurontin) 300 mg PO BID [facility] Last Admin: 04/08/19 09:45 Dose: 300 mg Documented by: Hydralazine HCl (Apresoline) 10 mg IV Q4HR PRN PRN Reason: SBP>160 OR DBP>100 Last Admin: 04/07/19 08:11 Dose: 10 mg Documented by: Ampicillin Sodium/Sulbactam Sodium (Unasyn/Ns 1.5 Gm/50 Ml) 1.5 gm in 50 mls @ 100 mls/hr IV Q6HR [facility]; Protocol Last Admin: 04/08/19 12:30 Dose: 100 mls/hr Documented by: Vancomycin HCl 750 mg/ Sodium (Chloride) 265 mls @ 166.667 mls/hr IV Q24H [facility] Last Admin: 04/07/19 22:41 Dose: 166.667 mls/hr Documented by: Insulin Human Lispro (Humalog) 0 unit SUB-Q [facility]; Protocol Last Admin: 04/08/19 14:13 Dose: Not Given Documented by: Metoprolol Tartrate (Lopressor) 25 mg PO QDAY [facility] Last Admin: 04/08/19 09:51 Dose: 25 mg Documented by: Ondansetron HCl (Zofran) 4 mg IV Q8H PRN PRN Reason: Nausea And Vomiting Oxycodone/Acetaminophen (Percocet 5/325) 1 tab PO Q6H PRN PRN Reason: Pain, Moderate (4-6) Last Admin: 04/08/19 09:46 Dose: 1 tab Documented by: Potassium Chloride (K-Dur) 40 meq PO ONCE ONE Stop: 04/08/19 15:01 Last Admin: 04/08/19 14:43 Dose: 40 meq Documented by: Sodium Chloride (Sodium Chloride Flush Syringe 10 Ml) 10 ml IV BID KHARI Last Admin: 04/08/19 09:54 Dose: 10 ml Documented by: Sodium Chloride (Sodium Chloride Flush Syringe 10 Ml) 10 ml IV PRN PRN PRN Reason: LINE FLUSH Review of Systems - Constitutional chronic pain (in right foot), no fever, no chills - Cardiovascular no chest pain, no lightheadedness, no shortness of breath - Respiratory no cough - Gastrointestinal no abdominal pain, no nausea, no vomiting - Muskuloskeletal right: foot pain - Integumentary foot/leg ulcers Exam Vital Signs Pulse Pulse Ox 111 H 99 04/05/19 16:30 04/05/19 16:30 - General physical appearance Positive: no distress, no pain, other (pleasant, elderly female) - Eyes Positive: normal occular movement - Respiratory Positive: normal expansion, normal respiratory effort, clear to auscultation - Cardiovascular Rhythm: regular - Extremities Extremity abnormal: ulceration (right 1st toe), black (plantar surface of right 1st toe), other (no DP or PT palpable in right foot) Peripheral Pulses: abnormal - Psychiatric Psychiatric: appropriate mood/affect, cooperative Results - Labs 04/07/19 00:36 04/08/19 04:56 Abnormal lab results 04/07/19 04/07/19 04/08/19 Range/Units 16:43 22:06 04:56 Potassium 3.5 L (3.6-5.0) mmol/L Creatinine 0.6 L (0.7-1.2) mg/dL Glucose 110 H (65-100) mg/dL POC Glucose 126 H 163 H (70-105) 04/08/19 04/08/19 Range/Units 07:26 11:55 Potassium (3.6-5.0) mmol/L Creatinine (0.7-1.2) mg/dL Glucose (65-100) mg/dL POC Glucose 114 H 141 H (70-105) Diabetes panel 04/08/19 Range/Units 04:56 Sodium 140 (137-145) mmol/L Potassium 3.5 L (3.6-5.0) mmol/L Chloride 104.1 (98-107) mmol/L Carbon Dioxide 22 (22-30) mmol/L BUN 9 (7-17) mg/dL Creatinine 0.6 L (0.7-1.2) mg/dL Glucose 110 H (65-100) mg/dL Calcium 9.8 (8.4-10.2) mg/dL Calcium panel 04/08/19 Range/Units 04:56 Calcium 9.8 (8.4-10.2) mg/dL Pituitary panel 04/08/19 Range/Units 04:56 Sodium 140 (137-145) mmol/L Potassium 3.5 L (3.6-5.0) mmol/L Chloride 104.1 (98-107) mmol/L Carbon Dioxide 22 (22-30) mmol/L BUN 9 (7-17) mg/dL Creatinine 0.6 L (0.7-1.2) mg/dL Glucose 110 H (65-100) mg/dL Calcium 9.8 (8.4-10.2) mg/dL Adrenal panel 04/08/19 Range/Units 04:56 Sodium 140 (137-145) mmol/L Potassium 3.5 L (3.6-5.0) mmol/L Chloride 104.1 (98-107) mmol/L Carbon Dioxide 22 (22-30) mmol/L BUN 9 (7-17) mg/dL Creatinine 0.6 L (0.7-1.2) mg/dL Glucose 110 H (65-100) mg/dL Calcium 9.8 (8.4-10.2) mg/dL - Imaging Additional studies: MRI report of right foot reviewed Assessment and Plan - Patient Problems (1) Diabetic foot ulcer Current Visit: Yes Status: Acute Qualifiers: Diabetic foot ulcer location: toe Laterality: right Non-pressure ulcer stage: limited to breakdown of skin Plan to address problem: Pt stable. There is no evidence of any soft tissue infection. MRI does suggest osteomyelitis. No surgical intervention is recommended at this time. Recommend basic wound care and evaluation of appropriateness for revascularization. Will discuss plan with wound care nurse on Wednesday. We'll follow along. Please call with questions. Time=30min
[2019-04-08] MEDS: TYLENOL PO PRN (21:26)
[2019-04-08] MEDS: VANCOMYCIN 750 MG in NACL 0.9% 250ML 250 ML IV SCH (21:27)
[2019-04-09] MEDS: HumaLOG SUB-Q SCH ×4 (10:32→22:25)
[2019-04-09] MEDS: PERCOCET 5/325 PO PRN (10:33)
[2019-04-09] MEDS: LOVENOX SUB-Q SCH (10:34)
[2019-04-09] MEDS: NEURONTIN PO SCH ×2 (10:34→22:25)
[2019-04-09] MEDS: NORVASC PO SCH (10:34)
[2019-04-09] MEDS: BABY ASPIRIN PO SCH (10:36)
[2019-04-09] MEDS: SODIUM CHLORIDE FLUSH SYRINGE 10 ML IV SCH ×2 (10:37→22:26)
[2019-04-09] MEDS: LOPRESSOR PO SCH (10:38)
--- NOTE | 2019-04-09 12:23 | Progress Note ---
Assessment and Plan Assessment and plan: 83-year-old woman with history of hypertension, diabetes, Hyperlipidemia, breast cancer in remission who presents with chronic foot ulcers that were getting worse. She had been seen a facility operations manager, had been on antibiotics for 2 weeks. But then she had worsening sharp bilateral lower leg pain. 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 -Plan for vascular revascularization of right SFA, vascular/IR input appreciated Diabetes mellitus - Well-controlled, - A1c is 5.7,- Sliding-scale insulin Hypertension - Continue amlodipine and metoprolol DVT Prophylaxis lovenox History Interval history: Continue to complain of pain in right foot Review of systems Constitutional: No fevers, no malaise, no joint pains CVS: No chest pain, no orthopnea, no dyspnea on exertion, no pedal edema GI: No abdominal pain, no diarrhea, no vomiting, no constipation Respiratory: no wheezing, no coughing Hospitalist Physical - Physical exam Narrative exam: Not in cardiopulmonary distress. The patient appeared well nourished and normally developed. Vital signs as documented. Head exam is unremarkable. No scleral icterus . Neck is without jugular venous distension, thyromegaly, or carotid bruits. Lungs are clear to auscultation. Cardiac exam reveals regular rate and Rhythm. First and second heart sounds normal. No murmurs, rubs or gallops. Abdominal exam reveals normal bowel sounds, no masses, no organomegaly and no aortic enlargement. Extremities clean dressing on the right foot. HANDKERCHIEF MAKER: Alert and oriented 3. No focal weakness. - Constitutional Vitals: Temp Pulse Resp BP Pulse Ox 97.5 F L 66 16 132/62 97 04/09/19 02:43 04/09/19 10:38 04/09/19 08:57 04/09/19 10:38 04/09/19 08:57 General appearance: Present: no acute distress Results - Labs CBC & Chem 7: 04/07/19 00:36 04/08/19 04:56 Labs: Laboratory Last Values WBC 4.8 K/mm3 (4.5-11.0) 04/07/19 00:36 RBC 4.03 M/mm3 (3.65-5.03) 04/07/19 00:36 Hgb 10.3 gm/dl (10.1-14.3) 04/07/19 00:36 Hct 32.1 % (30.3-42.9) 04/07/19 00:36 MCV 80 fl (79-97) 04/07/19 00:36 MCH 26 pg (28-32) L 04/07/19 00:36 MCHC 32 % (30-34) 04/07/19 00:36 RDW 21.4 % (13.2-15.2) H 04/07/19 00:36 Plt Count 346 K/mm3 (140-440) 04/07/19 00:36 Lymph % (Auto) 21.2 % (13.4-35.0) 04/06/19 05:20 Newton % (Auto) 11.8 % (0.0-7.3) H 04/06/19 05:20 Eos % (Auto) 5.9 % (0.0-4.3) H 04/06/19 05:20 Baso % (Auto) 1.0 % (0.0-1.8) 04/06/19 05:20 Lymph # 1.2 K/mm3 (1.2-5.4) 04/06/19 05:20 Newton # 0.7 K/mm3 (0.0-0.8) 04/06/19 05:20 Eos # 0.3 K/mm3 (0.0-0.4) 04/06/19 05:20 Baso # 0.1 K/mm3 (0.0-0.1) 04/06/19 05:20 Seg Neutrophils % 60.1 % (40.0-70.0) 04/06/19 05:20 Seg Neutrophils # 3.4 K/mm3 (1.8-7.7) 04/06/19 05:20 ESR 38 mm/Hr (0-20) 04/05/19 16:53 Sodium 140 mmol/L (137-145) 04/08/19 04:56 Potassium 3.5 mmol/L (3.6-5.0) L 04/08/19 04:56 Chloride 104.1 mmol/L (98-107) 04/08/19 04:56 Carbon Dioxide 22 mmol/L (22-30) 04/08/19 04:56 17 mmol/L 04/08/19 04:56 BUN 9 mg/dL (7-17) 04/08/19 04:56 0.6 mg/dL (0.7-1.2) L 04/08/19 04:56 Estimated GFR > 60 ml/min 04/08/19 04:56 15 % 04/08/19 04:56 Glucose 110 mg/dL (65-100) H 04/08/19 04:56 POC Glucose 126 (70-105) H 04/09/19 12:15 5.7 % (4-6) 04/05/19 20:35 Calcium 9.8 mg/dL (8.4-10.2) 04/08/19 04:56 0.20 mg/dL (0.1-1.2) 04/05/19 16:53 AST 18 units/L (5-40) 04/05/19 16:53 ALT 18 units/L (7-56) 04/05/19 16:53 97 units/L (35-129) 04/05/19 16:53 0.60 mg/dL (0.00-1.30) 04/07/19 00:36 8.2 g/dL (6.3-8.2) 04/05/19 16:53 4.1 g/dL (3.9-5) 04/05/19 16:53 1.0 % 04/05/19 16:53 Triglycerides 39 mg/dL (2-149) 04/06/19 05:20 Cholesterol 167 mg/dL (50-199) 04/06/19 05:20 96 mg/dL (50-130) 04/06/19 05:20 66 mg/dL (40-59) H 04/06/19 05:20 2.53 % 04/06/19 05:20 Active Medications - Current Medications Current Medications: Generic Name Dose Route Start Last Admin Trade Name Freq PRN Reason Stop Dose Admin Acetaminophen 650 mg 04/05/19 20:21 04/08/19 21:26 Tylenol PO 650 mg Q4H PRN Administration Pain MILD(1-3)/Fever >100.5/HYLTON Amlodipine Besylate 10 mg 04/06/19 15:00 04/09/19 10:34 Norvasc PO 10 mg DAILY KHARI Administration Aspirin 81 mg 04/06/19 10:00 04/09/19 10:36 Baby Aspirin PO 81 mg QDAY KHARI Administration Atorvastatin Calcium 20 mg 04/05/19 22:00 04/07/19 22:36 Lipitor PO 20 mg QHS KHARI Administration Dextrose 50 ml 04/05/19 20:21 D50w (25gm) Syringe IV PRN PRN Hypoglycemia Enoxaparin Sodium 40 mg 04/06/19 10:00 04/09/19 10:34 Lovenox SUB-Q 40 mg QDAY KHARI Administration Gabapentin 300 mg 04/06/19 16:00 04/09/19 10:34 Neurontin PO 300 mg BID KHARI Administration Hydralazine HCl 10 mg 04/06/19 20:11 04/07/19 08:11 Apresoline IV 10 mg Q4HR PRN Administration SBP>160 OR DBP>100 Ampicillin Sodium/Sulbactam Sodium 1.5 gm in 50 mls @ 100 mls/hr 04/06/19 00:00 04/08/19 17:44 Unasyn/Ns 1.5 Gm/50 Ml IV 100 mls/hr Q6HR KHARI Administration Protocol Vancomycin HCl 750 mg/ Sodium 265 mls @ 166.667 mls/hr 04/06/19 20:00 04/08/19 21:27 Chloride IV 166.667 mls/hr Q24H KHARI Administration Insulin Human Lispro 0 unit 04/05/19 22:00 04/09/19 12:11 Humalog SUB-Q Not Given ACHS [facility] Protocol Metoprolol Tartrate 25 mg 04/06/19 16:00 04/09/19 10:38 Lopressor PO 25 mg QDAY KHARI Administration Ondansetron HCl 4 mg 04/05/19 20:21 Zofran IV Q8H PRN Nausea And Vomiting Oxycodone/Acetaminophen 1 tab 04/05/19 20:21 04/09/19 10:33 Percocet 5/325 PO 1 tab Q6H PRN Administration Pain, Moderate (4-6) Sodium Chloride 10 ml 04/05/19 22:00 04/09/19 10:37 Sodium Chloride Flush Syringe 10 Ml IV 10 ml BID KHARI Administration Sodium Chloride 10 ml 04/05/19 20:21 Sodium Chloride Flush Syringe 10 Ml IV PRN PRN LINE FLUSH Nutrition/Malnutrition Assess - Dietary Evaluation Nutrition/Malnutrition Findings: Nutrition Notes Start: 04/06/19 15:21 Freq: Status: Active Protocol: Document 04/06/19 15:21 RM (Rec: 04/06/19 15:28 RM [email or web address]) Nutrition Notes Need for Assessment generated from: 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 Anand 19 points. Pt not in room at time of visit. Per tech pt ate all of breakfast. Percent of energy/protein needs met: 100%/100% Burn Absent Trauma Absent #2 Nutrition Diagnosis Underweight Etiology Hx breast cancer As Evidenced by Signs and Symptoms BMI 17.6 #1 Nutrition Diagnosis Predicted suboptimal energy intake Etiology Hx breast cancer As Evidenced by Signs and Symptoms BMI 17.6 Is patient on ventilator? No Is Patient Ambulatory and/or Out of Bed No REE-([facility]-confined to bed) 1162.764 Kcal/Kg value to use for calculation 29 Approximate Energy Requirements Using 1438 kcal/Kg Calculation Used for Recommendations Kcal/kg Additional Notes Protein Needs: 59-74g (1.2-1. 5g/kg) Fluid Needs: 1 ml/kcal Nutrition Intervention Change Diet Order: Continue current Add Supplement/Snack (indicate name/kcal Glucerna 1 daily /protein ) Provides kCal: 220 Provides Protein (gm) 10 Goal #1 Meet at least 75% of calorie and protein needs via PO and ONS intakes Goal #2 Wt gain/maintenance Anticipated Discharge Needs: Cardiac/Consistent CHO diet Follow-Up By: 04/10/19 Additional Comments Follow for malnutrition assessment,stable PO and ONS intakes
[2019-04-09] MEDS: UNASYN/NS 1.5 GM/50 ML 1.5 GM/50 ML BAG IV SCH ×4 (12:50→18:30)
[2019-04-10] MEDS: PERCOCET 5/325 PO PRN ×2 (00:55→19:12)
[2019-04-10] MEDS: UNASYN/NS 1.5 GM/50 ML 1.5 GM/50 ML BAG IV SCH ×2 (00:58→05:34)
[2019-04-10] MEDS: VANCOMYCIN 750 MG in NACL 0.9% 250ML 250 ML IV SCH ×2 (02:54→21:43)
[2019-04-10] MEDS: HumaLOG SUB-Q SCH ×4 (08:06→21:58)
[2019-04-10] MEDS ORDERED: NACL 0.9% 500 ML 500 ML ONE ×3 (08:19→10:32)
[2019-04-10] MEDS ORDERED: HEPARIN/NS 5000 UNIT/500ML(CATH LAB) 1,000 ML IR ONE (08:21)
[2019-04-10] MEDS ORDERED: ANCEF/STERILE WATER 2 GM/20 ML 0 GM/0 ML SYRINGE IV ONE (08:22)
[2019-04-10] MEDS ORDERED: HEPARIN 10,000 UNITS/10 ML ONE (08:22)
[2019-04-10] MEDS ORDERED: XYLOCAINE 2% INFILTRATI ONE (08:22)
[2019-04-10] MEDS ORDERED: NACL 0.9% 500 ML 500 ML IV SCH (08:30)
--- NOTE | 2019-04-10 08:41 | Progress Note ---
Assessment and Plan Cultures: 04/05/19 Blood Cultures: No growth to date A/P: 83-year old female with a past medical history of type 2 diabetes with neuropathy, hypertentison, HLD, Breast Ca , now in remission, s/p left mastectomy that presents in the ED on 04/05/19 with complaints of worsening chronic right foot pain. She has been under the care of a Sales Service Rep ([facility] at [address] [place] [address]), for the past 3 months. She reports chronic foot pain for the last several months with pain worse in the right toe, with sharp bilateral lower leg pain. She reports finishing a course of oral antibiotics 2 weeks ago. Admitted with: 1. 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 Chronic blister on the 5th great toe. No odor or purulence. Foot xray show no fractures or evidence of osteomylitis. ESR 38. CRP .60 . No leukocytosis. No fever. Blood cultures are in progress. MRI findings consistent with osteomyelitis and the first distal phalanx, the third distal phalanx, as well as within all of the phalanges of the fourth and fifth digits. 2. PAD: Unable to palpate DP pulses of either foot. Duplex scan shows Occlusion of right mid superficial femoral artery and distal superficial femoral artery. High-grade stenosis of right proximal common femoral artery .The left leg arterial vasculature is patent. Dr. Patrick following, recommends revascularization procedure of the right SFA. Right profunda femoral artery and common femoral artery revascularization today. 3. Type 2 Diabetes with neuropathy 4.Hx of Breast CA: s/p left mastectomy Plan: -Discontinue unasyn -Continue Vancomycin 750mg IV every 24 hours, D5 -Anticipate discharge on Cefepime 2 gms IV every 12 hours for 4 weeks -wound care consult ordered MRSA PCR ordered [facility] M: [id number] O:[phone] Subjective Date of service: 04/10/19 Interval history: Patient seen and examined. Reports right leg discomfort. Family at bedside. No fevers. Objective - Exam Narrative Exam: Constitutional: Asleep. Easy to arouse. Right leg discomfort Head, Ears, Nose: Normocephalic, atraumatic. External ears, nose normal Eyes: Conjunctivae/corneas clear. No icterus. No ptosis. Neck: Supple, no meningeal signs Oral: dentition fair. No thrush Cardiovascular: S1, S2 normal. Respiratory: Good air entry, clear to auscultation bilaterally GI: Soft, non-tender; bowel sounds normal. No peritoneal signs Musculoskeletal: Eroded nail bed with ulcer on right great toe. ?dry gangrene. Superficial ulcer to right pinkie toe. Pain with movement Skin: dry skin. Hem/Lymphatic: No palpable cervical or supraclavicular nodes. No lymphangitis Psych: Mood ok. Affect normal Neurological: Awake, alert, oriented. - Constitutional Vitals: Vital Signs Temp Pulse Resp BP Pulse Ox 98.2 F 71 18 161/54 98 04/10/19 01:26 04/10/19 01:26 04/10/19 01:26 04/10/19 01:26 04/10/19 01:26 Temperature -Last 24 Hours Temperature 98.2 F Temperature 98.2 F Temperature 97.8 F - Labs CBC & Chem 7: 04/07/19 00:36 04/08/19 04:56 Labs: Abnormal lab results 04/09/19 04/09/19 04/09/19 Range/Units 12:15 16:29 21:44 POC Glucose 126 H 134 H 251 H (70-105) 04/10/19 Range/Units 08:37 POC Glucose 123 H (70-105)
[2019-04-10 08:43] LABS: INR 0.97 (0.87-1.13)
[2019-04-10 08:44] LABS: Partial Thromboplastin Time 29.3 Sec. (24.2-36.6)
[2019-04-10] MEDS: SUBLIMAZE ONE ×7 (08:54→10:42)
[2019-04-10] MEDS: VERSED ONE ×8 (08:54→11:04)
[2019-04-10] MEDS: BENADRYL ONE ×2 (09:18→09:42)
[2019-04-10] MEDS ORDERED: HEPARIN/NS 5000 UNIT/500ML(CATH LAB) 500 ML IR ONE (09:47)
[2019-04-10] MEDS ORDERED: WATER FOR INJ Sterile (PF) 10 ML ONE (10:32)
[2019-04-10] MEDS ORDERED: CATHFLO ONE (10:32)
[2019-04-10] MEDS ORDERED: GELFOAM TP ONE (10:54)
[2019-04-10] MEDS: NORVASC PO SCH (11:00)
[2019-04-10] MEDS: LOPRESSOR PO SCH (11:00)
[2019-04-10] MEDS: SODIUM CHLORIDE FLUSH SYRINGE 10 ML IV SCH ×2 (11:00→21:44)
[2019-04-10] MEDS: NEURONTIN PO SCH ×2 (11:00→21:44)
[2019-04-10] MEDS: LOVENOX SUB-Q SCH (11:00)
[2019-04-10] MEDS: BABY ASPIRIN PO SCH (11:00)
[2019-04-10] MEDS ORDERED: PLAVIX ONE (11:23)
--- NOTE | 2019-04-10 11:36 | Post Operative Note ---
Date of procedure: 04/10/19 Pre-op diagnosis: CLI right lower extremity Post-op diagnosis: same Findings: Right profunda femoral artery and common femoral artery revascularization Procedure: 1. Ultrasound guided access of the left common femoral artery 2. Angiography of the left lower extremity 3. Selection of the abdominal aorta with angiography 4. Selection of the right common femoral artery and superficial femoral artery with angiography 5. Selection of the right profunda femoral artery with angiography 6. Placement of a 5 mm spider EPD in the right profunda femoral artery 7. Atherectomy of the right common femoral artery with a [employer] device 8. Shockwave angioplasty of the right profunda femoral artery and common femoral artery with a 5 mm x 60 mm shockwave device 9. Angioplasty of the right profunda femoral artery and common femoral artery with a 5 mm x 150 mm iNPACT DCB 10. Selection of the right superficial femoral artery and popliteal artery with angiography 11. Unnsuccessful attempt at recannalization of the right popliteal artery 12. Embolization of the subintimal tract with a 4 mm x 15 cm coil x 2 and 1 mL gelfoam 13. Injection of 2 mg of tPA in the right superficial femoral artery Anesthesia: local (w/ conscious sedation) Surgeon: CASTILLO PONCE Estimated blood loss: minimal Condition: stable
--- NOTE | 2019-04-10 11:37 | Operative Report ---
Operative Report Operative Report: EXAM: 1. Ultrasound guided access of the left common femoral artery 2. Angiography of the left lower extremity 3. Selection of the abdominal aorta with angiography 4. Selection of the right common femoral artery and superficial femoral artery with angiography 5. Selection of the right profunda femoral artery with angiography 6. Placement of a 5 mm spider EPD in the right profunda femoral artery 7. Atherectomy of the right common femoral artery with a [employer] M device 8. Shockwave angioplasty of the right profunda femoral artery and common femoral artery with a 5 mm x 60 mm shockwave device 9. Angioplasty of the right profunda femoral artery and common femoral artery with a 5 mm x 150 mm iNPACT DCB 10. Selection of the right superficial femoral artery and popliteal artery with angiography 11. Unnsuccessful attempt at recannalization of the right popliteal artery 12. Embolization of the subintimal tract with a 4 mm x 15 cm coil x 2 and 1 mL gelfoam 13. Injection of 2 mg of tPA in the right superficial femoral artery DATE: 04/10/19 SOLAR SYSTEMS DESIGNER: CASTILLO PONCE MD INDICATION: Critical limb ischemia of the right lower extremity with rest pain, and gangrene of the first digit and ulceration of the fourth and fifth digit. MEDICATIONS: Please see nursing report for full details. DEVICES: 5 mm x 60 mm shockwave device 5 mm x 150 mm iNPACT DCB 4 mm x 15 mm interlock coil x 2 and 1 mL gelfoam 2 mg of tPA 5 mm spider EPD [employer] M device CONTRAST: Please see fish hatchery laborer report for full details PROCEDURE: The risks, benefits, and alternatives were discussed with the patient; written informed consent was obtained. The patient was brought to the angiography suite and prepped and draped in a sterile fashion. Groins were prepped and draped in a sterile fashion. Ultrasound was used to evaluate the left common femoral artery which demonstrated atherosclerotic plaques unsuitable for closure. Under direct ultrasound guidance, the left common femoral artery was accessed with a 21-gauge micropuncture needle. 0.018 inch wire was passed into the aorta. Needle was exchanged for transitional dilator. I was exchanged for 0.035 inch wire. Transitional dilator was exchanged for a 5 [place] sheath. Digital subtraction angiography was performed demonstrating some eccentric plaques in the left common femoral artery with a low inferior epigastric artery and patency of the left profunda femoral artery. The left superficial femoral artery had 90% proximal narrowing. The puncture was appropriate, above the bifurcation and below the inferior epigastric artery. Flush catheter was advanced over the wire and use dislike the abdominal aorta. Digital subtraction angiography was performed demonstrating patency of the infrarenal abdominal aorta, 30% narrowing of the bilateral common iliac arteries, 20% diffuse narrowing of the external iliac arteries, and some flow in the internal iliac arteries. The right external iliac artery was selected, the right common femoral artery was selected, and the right superficial femoral artery was selected and digital subtraction angiography was performed demonstrating 90% narrowing of the common femoral artery with tandem 60% eccentric plaques in the common femoral artery and a 90% stenosis in the mid profunda femoral artery. The superficial femoral artery had sluggish flow and had some collaterals arising from it with multifocal 90+ percent narrowings in the proximal to mid superficial femoral artery. Beyond that, the superficial femoral artery was occluded. There was the semblance of reconstitution of the distal most below the knee popliteal artery and the tibial vessels were very poorly visualized due to motion and there very atretic size. The patient was heparinized. 6 [place] 45 cm pedicle destination was positioned in the right distal external iliac artery. Wire and catheter were used to select the right superficial femoral artery and digital subtraction angiography was performed position. Numerous attempts were made to cross the occlusion using the back end of the Glidewire, and multiple crossing wires but this was ultimately unsuccessful. I decided to treat the profunda femoral artery and common femoral artery in order to push the sheath further into the superficial femoral artery for more purchase before abandoning attempts at recanalization. The profunda femoral artery was selected and a 5 mm spider EPD was deloyed. [employer] M device was used to perform atherectomy of the right common femoral artery and then a 5 mm x 60 mm shockwave device was advanced over the wire and used to perform shockwave lithoplasty of the profunda femoral artery and the common femoral artery. After this was performed, 5 mm x 150 mm iNPACT DCB was used to perform angioplasty. Digital subtraction angiography demonstrated less than 25% residual narrowing of the common femoral artery, and less than 10% residual narrowing of the profunda femoral artery. There was some debris in the embolic protection device. The embolic protection device was then pulled back in order to capture the rest of the debris and was retrieved. Digital subtraction angiography demonstrated no distal embolization into the profunda femoral artery. There is now sluggish flow in the superficial femoral artery. I decided to again attempt to reconstruct the superficial femoral artery due to the sluggish flow and now I could pass the sheath further into the vessel and into the proximal superficial femoral artery. Angled catheter and Glidewire advantage were used to create a subintimal passage around the mid superficial femoral artery occlusion and beyond, but I was unable to re-puncture back into the below the knee popliteal artery. I tried it with an Enteer wire and other wires but was unsuccessful. Digital subtraction angiography was performed to the sheath which then demonstrated accumulation of contrast in the knee region and I realize that there was extravasation from the subintimal passage, likely due to the lack of any developed collaterals from the superficial femoral artery. I repeated digital subtraction angiography which again demonstrated extravasation from the subintimal passage. I then pulled the catheter back into the distal superficial femoral artery and through a microcatheter I deployed 2, 4 mm x 15 cm coils to occlude the tract and then injected a scant amount of gelfoam into the subintimal tract. Digital subtraction angiography was performed demonstrating no flow through the subintimal tract. There is still sluggish flow in the superficial femoral artery. I injected 2 mg of tPA in the proximal to mid superficial femoral artery and after allowing this to dwell I performed digital subtraction an giography again which demonstrated that the superficial femoral artery was back to its baseline status. Repeat angiography was performed now demonstrating a very diseased hibernating popliteal artery. There was atretic anterior and posterior tibial arteries in the foot. At this point, all wires, catheters, and sheaths retracted to the left external iliac artery. ACT was obtained and sheath was removed and pressure was held until hemostasis was achieved. Sterile dressing applied and compression dressing applied. FINDINGS: Please see procedure noted above. IMPRESSION: 1. Successful atherectomy, shockwave angioplasty and DCB angioplasty of the right profunda femoral artery and common femoral artery. 2. Inability to cross the PSYCHOLOGY ASSISTANT of the long segment mid to distal superficial femoral artery. 3. Successful coil embolization of the extravasation from the right superficial femoarl artery subintimal tract.
--- NOTE | 2019-04-10 11:41 | Event Note ---
Date: 04/10/19 Recommend no debridement of the wound until complete revascularization can be performed. Can be palliated with small amounts of betadine. Unclear if revascularization will be possible given the extent of her arterial disease. Patient is a very suboptimal candidate for bypass. Patient had severe common femoral artery disease, profunda severe disease, long segment superficial femoral artery occlusion, and unclear runoff given her motion during the procedure. Her popliteal was thought to be occluded at the beginning of the case, but was hibernating. Aspirin, plavix, and flat for 6-8 hrs. Will followup in clinic.
--- NOTE | 2019-04-10 12:33 | Progress Note ---
Assessment and Plan Assessment and plan: 83-year-old woman with history of hypertension, diabetes, Hyperlipidemia, breast cancer in remission who presents with chronic foot ulcers that were getting worse. She had been seen a mill dresser, had been on antibiotics for 2 weeks. But then she had worsening sharp bilateral lower leg pain. 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 - vascular/IR input appreciated, 04/10, sp Right profunda femoral artery and common femoral artery revascularizat ion per Dr Martinez " Recommend no debridement of the wound until complete rev ascularization can be performed. Can be palliated with small amounts of betadine. * Unclear if revascularization will be possible given the extent of her arterial disease. Patient is a very suboptimal candidate for bypass. * Patient had severe common femoral artery disease, profunda severe disease, long segment superficial femoral artery occlusion, and unclear runoff given her motion during the procedure. Her popliteal was thought to be occluded at the beginning of the case, but was hibernating. " Aspirin, plavix, and flat for 6-8 hrs. Will followup in clinic. Diabetes mellitus - Well-controlled, - A1c is 5.7,- Sliding-scale insulin Hypertension - Continue amlodipine and metoprolol DVT Prophylaxis lovenox History Interval history: Continue to complain of pain in right foot Review of systems Constitutional: No fevers, no malaise, no joint pains CVS: No chest pain, no orthopnea, no dyspnea on exertion, no pedal edema GI: No abdominal pain, no diarrhea, no vomiting, no constipation Respiratory: no wheezing, no coughing Hospitalist Physical - Physical exam Narrative exam: Not in cardiopulmonary distress. The patient appeared well nourished and normally developed. Vital signs as documented. Head exam is unremarkable. No scleral icterus . Neck is without jugular venous distension, thyromegaly, or carotid bruits. Lungs are clear to auscultation. Cardiac exam reveals regular rate and Rhythm. First and second heart sounds normal. No murmurs, rubs or gallops. Abdominal exam reveals normal bowel sounds, no masses, no organomegaly and no aortic enlargement. Extremities clean dressing on the right foot. MANUAL WRITER: Alert and oriented 3. No focal weakness. - Constitutional Vitals: Temp Pulse Resp BP Pulse Ox 97.6 F 104 H 16 165/77 100 04/10/19 12:00 04/10/19 12:15 04/10/19 12:15 04/10/19 12:15 04/10/19 12:15 General appearance: Present: no acute distress Results - Labs CBC & Chem 7: 04/07/19 00:36 04/08/19 04:56 Labs: Laboratory Last Values WBC 4.8 K/mm3 (4.5-11.0) 04/07/19 00:36 RBC 4.03 M/mm3 (3.65-5.03) 04/07/19 00:36 Hgb 10.3 gm/dl (10.1-14.3) 04/07/19 00:36 Hct 32.1 % (30.3-42.9) 04/07/19 00:36 MCV 80 fl (79-97) 04/07/19 00:36 MCH 26 pg (28-32) L 04/07/19 00:36 MCHC 32 % (30-34) 04/07/19 00:36 RDW 21.4 % (13.2-15.2) H 04/07/19 00:36 Plt Count 346 K/mm3 (140-440) 04/07/19 00:36 Lymph % (Auto) 21.2 % (13.4-35.0) 04/06/19 05:20 [place] % (Auto) 11.8 % (0.0-7.3) H 04/06/19 05:20 Eos % (Auto) 5.9 % (0.0-4.3) H 04/06/19 05:20 Baso % (Auto) 1.0 % (0.0-1.8) 04/06/19 05:20 Lymph # 1.2 K/mm3 (1.2-5.4) 04/06/19 05:20 [place] # 0.7 K/mm3 (0.0-0.8) 04/06/19 05:20 Eos # 0.3 K/mm3 (0.0-0.4) 04/06/19 05:20 Baso # 0.1 K/mm3 (0.0-0.1) 04/06/19 05:20 Seg Neutrophils % 60.1 % (40.0-70.0) 04/06/19 05:20 Seg Neutrophils # 3.4 K/mm3 (1.8-7.7) 04/06/19 05:20 ESR 38 mm/Hr (0-20) 04/05/19 16:53 PT 12.6 Sec. (12.2-14.9) 04/10/19 Unknown INR 0.97 (0.87-1.13) 04/10/19 Unknown APTT 29.3 Sec. (24.2-36.6) 04/10/19 Unknown 191 (74-137) H 04/10/19 11:25 Sodium 140 mmol/L (137-145) 04/08/19 04:56 Potassium 3.5 mmol/L (3.6-5.0) L 04/08/19 04:56 Chloride 104.1 mmol/L (98-107) 04/08/19 04:56 Carbon Dioxide 22 mmol/L (22-30) 04/08/19 04:56 17 mmol/L 04/08/19 04:56 BUN 9 mg/dL (7-17) 04/08/19 04:56 0.6 mg/dL (0.7-1.2) L 04/08/19 04:56 Estimated GFR > 60 ml/min 04/08/19 04:56 15 % 04/08/19 04:56 Glucose 110 mg/dL (65-100) H 04/08/19 04:56 POC Glucose 123 (70-105) H 04/10/19 08:37 5.7 % (4-6) 04/05/19 20:35 Calcium 9.8 mg/dL (8.4-10.2) 04/08/19 04:56 0.20 mg/dL (0.1-1.2) 04/05/19 16:53 AST 18 units/L (5-40) 04/05/19 16:53 ALT 18 units/L (7-56) 04/05/19 16:53 97 units/L (35-129) 04/05/19 16:53 0.60 mg/dL (0.00-1.30) 04/07/19 00:36 8.2 g/dL (6.3-8.2) 04/05/19 16:53 4.1 g/dL (3.9-5) 04/05/19 16:53 1.0 % 04/05/19 16:53 Triglycerides 39 mg/dL (2-149) 04/06/19 05:20 Cholesterol 167 mg/dL (50-199) 04/06/19 05:20 96 mg/dL (50-130) 04/06/19 05:20 66 mg/dL (40-59) H 04/06/19 05:20 2.53 % 04/06/19 05:20 Active Medications - Current Medications Current Medications: Generic Name Dose Route Start Last Admin Trade Name Freq PRN Reason Stop Dose Admin Acetaminophen 650 mg 04/05/19 20:21 04/08/19 21:26 Tylenol PO 650 mg Q4H PRN Administration Pain MILD(1-3)/Fever >100.5/HYLTON Amlodipine Besylate 10 mg 04/06/19 15:00 04/09/19 10:34 Norvasc PO 10 mg DAILY KHARI Administration Aspirin 81 mg 04/06/19 10:00 04/09/19 10:36 Baby Aspirin PO 81 mg QDAY KHARI Administration Atorvastatin Calcium 20 mg 04/05/19 22:00 04/09/19 22:25 Lipitor PO 20 mg QHS KHARI Administration Clopidogrel Bisulfate 75 mg 04/11/19 10:00 Plavix PO QDAY KHARI Dextrose 50 ml 04/05/19 20:21 D50w (25gm) Syringe IV PRN PRN Hypoglycemia Enoxaparin Sodium 40 mg 04/06/19 10:00 04/09/19 10:34 Lovenox SUB-Q 40 mg QDAY KHARI Administration Gabapentin 300 mg 04/06/19 16:00 04/09/19 22:25 Neurontin PO 300 mg BID KHARI Administration Hydralazine HCl 10 mg 04/06/19 20:11 04/07/19 08:11 Apresoline IV 10 mg Q4HR PRN Administration SBP>160 OR DBP>100 Ampicillin Sodium/Sulbactam Sodium 1.5 gm in 50 mls @ 100 mls/hr 04/06/19 00:00 04/10/19 05:34 Unasyn/Ns 1.5 Gm/50 Ml IV 100 mls/hr Q6HR KHARI Administration Protocol Vancomycin HCl 750 mg/ Sodium 265 mls @ 166.667 mls/hr 04/06/19 20:00 04/10/19 02:54 Chloride IV 166.667 mls/hr Q24H KHARI Administration Sodium Chloride 500 mls @ 50 mls/hr 04/10/19 08:30 04/10/19 08:32 Nacl 0.9% 500 Ml IV 50 mls/hr DIRECT KHARI Administration Insulin Human Lispro 0 unit 04/05/19 22:00 04/10/19 08:06 Humalog SUB-Q Not Given ACHS [facility] Protocol Metoprolol Tartrate 25 mg 04/06/19 16:00 04/09/19 10:38 Lopressor PO 25 mg QDAY KHARI Administration Ondansetron HCl 4 mg 04/05/19 20:21 Zofran IV Q8H PRN Nausea And Vomiting Oxycodone/Acetaminophen 1 tab 04/05/19 20:21 04/10/19 00:55 Percocet 5/325 PO 1 tab Q6H PRN Administration Pain, Moderate (4-6) Sodium Chloride 10 ml 04/05/19 22:00 04/09/19 22:26 Sodium Chloride Flush Syringe 10 Ml IV 10 ml BID KHARI Administration Sodium Chloride 10 ml 04/05/19 20:21 Sodium Chloride Flush Syringe 10 Ml IV PRN PRN LINE FLUSH Nutrition/Malnutrition Assess - Dietary Evaluation Nutrition/Malnutrition Findings: Nutrition Notes Start: 04/06/19 15:21 Freq: Status: Active Protocol: Document 04/06/19 15:21 RM (Rec: 04/06/19 15:28 RM [id number]) Nutrition Notes Need for Assessment generated from: sole buffer,MST Initial or Follow up Assessment Current Diagnosis Diabetes,Hypertension, Hyperlipidemia Other Pertinent Diagnosis PAD,Hx breast cancer S/P left masectomy, R foot wound Current Diet Cardiac/consistent CHO Labs/Tests Reviewed Pertinent Medications Reviewde Height 5 ft 6 in Weight 49.6 kg [place] Body Weight (kg) 59.09 BMI 17.6 Subjective/Other Information Screened for malnutrition and skin risk. Anand 19 points. Pt not in room at time of visit. Per tech pt ate all of breakfast. Percent of energy/protein needs met: 100%/100% Burn Absent Trauma Absent #2 Nutrition Diagnosis Underweight Etiology Hx breast cancer As Evidenced by Signs and Symptoms BMI 17.6 #1 Nutrition Diagnosis Predicted suboptimal energy intake Etiology Hx breast cancer As Evidenced by Signs and Symptoms BMI 17.6 Is patient on ventilator? No Is Patient Ambulatory and/or Out of Bed No REE-([facility]-confined to bed) 1162.764 Kcal/Kg value to use for calculation 29 Approximate Energy Requirements Using 1438 kcal/Kg Calculation Used for Recommendations Kcal/kg Additional Notes Protein Needs: 59-74g (1.2-1. 5g/kg) Fluid Needs: 1 ml/kcal Nutrition Intervention Change Diet Order: Continue current Add Supplement/Snack (indicate name/kcal Glucerna 1 daily /protein ) Provides kCal: 220 Provides Protein (gm) 10 Goal #1 Meet at least 75% of calorie and protein needs via PO and ONS intakes Goal #2 Wt gain/maintenance Anticipated Discharge Needs: Cardiac/Consistent CHO diet Follow-Up By: 04/10/19 Additional Comments Follow for malnutrition assessment,stable PO and ONS intakes
--- NOTE | 2019-04-10 16:34 | Event Note ---
Date: 04/10/19 Plan for tunneled PICC on wednesday. NPO except meds for wednesday.
[2019-04-10] MEDS: APRESOLINE IV PRN (17:40)
[2019-04-10] MEDS ORDERED: APRESOLINE IV ONE (18:00)
[2019-04-10] MEDS ORDERED: DILAUDID IV ONE (18:54)
[2019-04-10] MEDS: TYLENOL PO PRN (20:26)
--- NOTE | 2019-04-10 22:15 | Vascular Lab Report ---
PROCEDURE: VL VENOUS DUPLEX LE BILAT TECHNIQUE: Ultrasound vein mapping study lower extremities HISTORY: vein mapping lower extremities COMPARISONS: FINDINGS: There is no evidence for superficial venous thrombosis. Structures seen are patent bilaterally Proximal right greater saphenous vein is 0.33 cm Mid right saphenous vein 0.09 cm. Distal right saphenous vein 0.1 cm the greater saphenous vein at the mid calf is 0.07 cm LSV at the popliteal fossa 0.18 cm. Velocity at the proximal calf 0.11 cm. The distal calf posteriorl y is 0.08 cm Left proximal greater saphenous vein 0.46 cm. At the mid thigh is 0.11 cm At the popliteal fossae measures 0.14 cm At the mid calf greater saphenous vein is 0.07 cm The LSV is 0.14 cm proximally. At the mid calf 0.06 cm distally 0.08 cm IMPRESSION: Venous mapping of the lower extremities as described above. No evidence for thrombosis or occlusion. Please see technologist note for some additional measurements not mentioned above. This document is electronically signed by Tray Irving MD., April 10 2019 10:13:52 PM ET
[2019-04-11] MEDS: APRESOLINE IV PRN (03:12)
[2019-04-11] MEDS: HumaLOG SUB-Q SCH ×5 (03:27→22:12)
[2019-04-11] MEDS: SODIUM CHLORIDE FLUSH SYRINGE 10 ML IV SCH ×3 (03:28→22:12)
[2019-04-11] MEDS: UNASYN/NS 1.5 GM/50 ML 1.5 GM/50 ML BAG IV SCH (03:34)
--- NOTE | 2019-04-11 09:04 | Progress Note ---
Assessment and Plan Cultures: 04/05/19 Blood Cultures: No growth to date 04/10/19 MRSA PCR: negative A/P: 83-year old female with a past medical history of type 2 diabetes with neuropathy, hypertentison, HLD, Breast Ca , now in remission, s/p left mastectomy that presents in the ED on 04/05/19 with complaints of worsening chronic right foot pain. She has been under the care of a Revenue Director ([facility] at [address] [place] [address]), for the past 3 months. She reports chronic foot pain for the last several months with pain worse in the right toe, with sharp bilateral lower leg pain. She reports finishing a course of oral antibiotics 2 weeks ago. Admitted with: 1. 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 Chronic blister on the 5th great toe. No odor or purulence. Foot xray show no fractures or evidence of osteomylitis. ESR 38. CRP .60 . No leukocytosis. No fever. Blood cultures are in progress. MRI findings consistent with osteomyelitis and the first distal phalanx, the third distal phalanx, as well as within all of the phalanges of the fourth and fifth digits. Tunneled PICC placement scheduled for Wednesday. 2. PAD: Unable to palpate DP pulses of either foot. Duplex scan shows Occlusion of right mid superficial femoral artery and distal superficial femoral artery. High-grade stenosis of right proximal common femoral artery .The left leg arterial vasculature is patent. S/p ?revascularzation 04/11/19- will follow vascular outpatient. 3. Type 2 Diabetes with neuropathy 4.Hx of Breast CA: s/p left mastectomy Plan: -discontinue Vancomycin -Anticipate discharge on Cefepime 2 gms IV every 12 hours for 4 weeks ending 05-04-19 -Start Cefepime 2 gms IV every 12 hours -Order placed with case management -F/U ID office in 3 weeks (sent to signal worker) -continue wound care [facility] M: [phone] O:[phone] Subjective Date of service: 04/11/19 Interval history: Patient seen and examined. Asleep, difficult to arouse today. No fevers. Objective - Exam Narrative Exam: Constitutional: Asleep. Not easy to arose. somnolent. Head, Ears, Nose: Normocephalic, atraumatic. External ears, nose normal Eyes: Conjunctivae/corneas clear. No icterus. No ptosis. Neck: Supple, no meningeal signs Oral: dentition fair. No thrush Cardiovascular: S1, S2 normal. Respiratory: Good air entry, clear to auscultation bilaterally GI: Soft, non-tender; bowel sounds normal. No peritoneal signs Musculoskeletal: Eroded nail bed with ulcer on right great toe. ?dry gangrene. Superficial ulcer to right pinkie toe. Pain with movement Skin: dry skin. Hem/Lymphatic: No palpable cervical or supraclavicular nodes. No lymphangitis Psych: somnolent Neurological: somnolent. - Constitutional Vitals: Vital Signs Temp Pulse Resp BP Pulse Ox 99.0 F 108 H 16 155/65 100 04/11/19 07:43 04/11/19 08:32 04/11/19 07:43 04/11/19 07:43 04/11/19 07:43 Temperature -Last 24 Hours Temperature 99.0 F Temperature 97.6 F Temperature 99.4 F Temperature 97.4 F Temperature 97.3 F Temperature 97.4 F Temperature 97.5 F Temperature 97.6 F - Labs CBC & Chem 7: 04/07/19 00:36 04/08/19 04:56 Labs: Abnormal lab results 04/10/19 04/10/19 04/10/19 Range/Units 11:25 16:25 21:53 Activated Clotting Time 191 H (74-137) POC Glucose 136 H 147 H (70-105) Vancomycin Trough (5.0-20.0) ug/mL 04/10/19 04/11/19 Range/Units 23:23 07:48 Activated Clotting Time (74-137) POC Glucose 134 H (70-105) Vancomycin Trough 29.2 H (5.0-20.0) ug/mL
[2019-04-11] MEDS: PERCOCET 5/325 PO PRN ×2 (09:18→20:06)
[2019-04-11] MEDS: BABY ASPIRIN PO SCH (09:20)
[2019-04-11] MEDS: NORVASC PO SCH (09:20)
[2019-04-11] MEDS: NEURONTIN PO SCH ×2 (09:20→22:11)
[2019-04-11] MEDS: PLAVIX PO SCH (09:20)
[2019-04-11] MEDS: LOVENOX SUB-Q SCH (09:20)
[2019-04-11] MEDS: LOPRESSOR PO SCH (09:21)
--- NOTE | 2019-04-11 13:56 | Progress Note ---
Assessment and Plan /Right great toe ulcer/peripheral arterial disease -General surgery input appreciated, no evidence of infection. - vascular/IR input appreciated, on 04/10 s/p Right profunda femoral artery and common femoral artery revascularization - per Dr Martinez no debridement of the wound until complete revascularization can be performed and it is also Unclear if revascularization will be possible given the extent of her arterial disease. Patient had severe common femoral artery disease, profunda severe disease, long segment superficial femoral artery occlusion, and unclear runoff given her motion during the procedure. Patient is a very suboptimal candidate for bypass. - Continue Aspirin, plavix, and flat for 6-8 hrs. patient Will followup in clinic with dr Martinez. /Chronic right foot pain with presumed right toe gangrene - Started on cefepime - Anticipate discharge on Cefepime 2 gms IV every 12 hours for 4 weeks ending 05-04-19, per ID - plan to place PICC line tomorrow Diabetes mellitus - Well-controlled, - A1c is 5.7,- cont Sliding-scale insulin Hypertension - Continue amlodipine and metoprolol DVT Prophylaxis, on lovenox Disposition: Possibly tomorrow after placing PICC line with home IV antibiotics set up Brief History: 83-year-old woman with history of hypertension, diabetes, Hyperlipidemia, breast cancer in remission who presents with chronic foot ulcers that were getting worse. She had been seen a motor equipment lieutenant, had been on antibiotics for 2 weeks. But then she had worsening sharp bilateral lower leg pain. She was planned for MRI of her feet as outpatient was unable to keep the appointment due to worsening pain. She was then presented to the [facility] for further evaluation and management. 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 HEENT: Normocephalic. Atraumatic. No conjunctival congestion or icterus. Radha ent has moist mucous membranes. NECK: Supple. Trachea midline. CHEST/LUNGS: Clear to auscultated bilaterally, breathing nonlabored. No wheezes crackles or rhonchi. HEART/CARDIOVASCULAR: Regular in rate and rhythm. S1 and S2 positive. ABDOMEN: Abdomen is soft, nontender. Patient has normal bowel sounds. SKIN: There is no rash. Warm and dry. NEURO: No focal motor deficit. Follows command. MUSCULOSKELETAL: No joint effusion or tenderness. EXTRIMITY: No edema, no cyanosis or clubbing. PSYCH: Cooperative. Subjective Date of service: 04/11/19 Interval history: Patient seen and examined. Medical records and medication list reviewed. No acute event overnight noted by the RN. Patient denies any chest pain or difficulty breathing. Patient is tolerating diet. Discussed plan of care at bedside with patient's son. patient c/o right foot pain Objective - Constitutional Vitals: Vital Signs - 12hr 04/11/19 04/11/19 04/11/19 03:00 03:12 07:43 Temperature 97.6 F 99.0 F Pulse Rate 102 H 102 H 106 H Pulse Rate [ From Monitor] Respiratory 20 16 Rate Blood Pressure 174/75 155/65 Blood Pressure 174/75 [Left] O2 Sat by Pulse 99 100 Oximetry 04/11/19 04/11/19 04/11/19 08:32 09:18 09:20 Temperature Pulse Rate 106 H Pulse Rate [ 108 H From Monitor] Respiratory 16 Rate Blood Pressure 155/65 Blood Pressure [Left] O2 Sat by Pulse Oximetry 04/11/19 09:21 Temperature Pulse Rate 106 H Pulse Rate [ From Monitor] Respiratory Rate Blood Pressure 155/65 Blood Pressure [Left] O2 Sat by Pulse Oximetry - Labs CBC & Chem 7: 04/07/19 00:36 04/08/19 04:56 Labs: Abnormal lab results 04/10/19 04/10/19 04/10/19 Range/Units 16:25 21:53 23:23 POC Glucose 136 H 147 H (70-105) Vancomycin Trough 29.2 H (5.0-20.0) ug/mL 04/11/19 04/11/19 Range/Units 07:48 11:34 POC Glucose 134 H 152 H (70-105) Vancomycin Trough (5.0-20.0) ug/mL
[2019-04-11] MEDS: MAXIPIME/NS 2 GM/100 ML 2 GM/100 ML BAG IV SCH (22:11)
[2019-04-12] MEDS: PERCOCET 5/325 PO PRN (03:11)
[2019-04-12] MEDS ORDERED: MORPHINE IV ONE (06:17)
[2019-04-12] MEDS: HumaLOG SUB-Q SCH ×3 (07:35→16:28)
--- NOTE | 2019-04-12 09:24 | Progress Note ---
Assessment and Plan Cultures: 04/05/19 Blood Cultures: No growth to date 04/10/19 MRSA PCR: negative A/P: 83-year old female with a past medical history of type 2 diabetes with neuropathy, hypertentison, HLD, Breast Ca , now in remission, s/p left mastectomy that presents in the ED on 04/05/19 with complaints of worsening chronic right foot pain. She has been under the care of a Onion Topper ([facility] at [address] [place] [address]), for the past 3 months. She reports chronic foot pain for the last several months with pain worse in the right toe, with sharp bilateral lower leg pain. She reports finishing a course of oral antibiotics 2 weeks ago. Admitted with: 1. 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 Chronic blister on the 5th great toe. No odor or purulence. Foot xray show no fractures or evidence of osteomylitis. ESR 38. CRP .60 . No leukocytosis. No fever. Blood cultures are in progress. MRI findings consistent with osteomyelitis and the first distal phalanx, the third distal phalanx, as well as within all of the phalanges of the fourth and fifth digits. Tunneled central venous PICC via the right internal jugular vein placed today. 2. PAD: Unable to palpate DP pulses of either foot. Duplex scan shows occlusion of right mid superficial femoral artery and distal superficial femoral artery. High-grade stenosis of right proximal common femoral artery .The left leg arterial vasculature is patent. S/p common femoral artery and profunda revascularized. SFA was not reconstructable 04/11/19 - Dr. Martinez following 3. Type 2 Diabetes with neuropathy 4.Hx of Breast CA: s/p left mastectomy Plan: -Anticipate discharge on Cefepime 2 gms IV every 12 hours for 4 weeks ending 05-04-19 - Continue Cefepime 2 gms IV every 12 hours, D2 -Order placed with case management -F/U ID office in 3 weeks (sent to senior master scheduler) -continue wound care [facility] M: [phone] O:[phone] Subjective Date of service: 04/12/19 Interval history: Patient seen and examined. Asleep, difficult to arouse today. No fevers. Objective - Exam Narrative Exam: Constitutional: Asleep. Not easy to arose. somnolent. Head, Ears, Nose: Normocephalic, atraumatic. External ears, nose normal Eyes: Conjunctivae/corneas clear. No icterus. No ptosis. Neck: Supple, no meningeal signs Oral: dentition fair. No thrush Cardiovascular: S1, S2 normal. Respiratory: Good air entry, clear to auscultation bilaterally GI: Soft, non-tender; bowel sounds normal. No peritoneal signs Musculoskeletal: Eroded nail bed with ulcer on right great toe. ?dry gangrene. Superficial ulcer to right pinkie toe. Pain with movement Skin: dry skin. Hem/Lymphatic: No palpable cervical or supraclavicular nodes. No lymphangitis Psych: somnolent Neurological: somnolent. - Constitutional Vitals: Vital Signs Temp Pulse Resp BP Pulse Ox 98.0 F 96 H 18 131/55 93 04/12/19 07:21 04/12/19 07:21 04/12/19 07:21 04/12/19 07:21 04/12/19 07:21 Temperature -Last 24 Hours Temperature 98.0 F Temperature 98.7 F Temperature 98.6 F Temperature 100.6 F Temperature 98.4 F - Labs CBC & Chem 7: 04/07/19 00:36 04/08/19 04:56 Labs: Abnormal lab results 04/11/19 04/11/19 04/11/19 Range/Units 11:34 16:05 20:57 POC Glucose 152 H 135 H 119 H (70-105) 04/12/19 Range/Units 07:25 POC Glucose 119 H (70-105)
[2019-04-12] MEDS: NORVASC PO SCH (09:30)
[2019-04-12] MEDS: NEURONTIN PO SCH (09:30)
[2019-04-12] MEDS: LOPRESSOR PO SCH (09:30)
[2019-04-12] MEDS: LOVENOX SUB-Q SCH (09:31)
[2019-04-12] MEDS: BABY ASPIRIN PO SCH ×2 (09:31→09:41)
[2019-04-12] MEDS: PLAVIX PO SCH ×2 (09:32→15:53)
[2019-04-12] MEDS: MAXIPIME/NS 2 GM/100 ML 2 GM/100 ML BAG IV SCH ×2 (09:33→12:08)
[2019-04-12] MEDS ORDERED: PLETAL PO SCH (10:00)
--- NOTE | 2019-04-12 10:08 | Progress Note ---
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 Her common femoral artery and profunda were revascularized. Her SFA was not reconstructable. She is demented. No vein available for bypass, but patient is not really a bypass candidate due to dementia and frail status. Pain is likely from the 4th/5th interdigious ulcer. Needs daily changed with gauze between the ulcer until it dries out. Started patient on pletal 50 mg PO BID. Followup in 2 weeks. May ultimately need palliative care given advanced dementia and CLI. Subjective Date of service: 04/12/19 Interval history: Patient continues to have right "leg pain". She is mild to moderately demented. Right foot inspected. Nonpalpable pedal pulses, but the foot is warm without signs of acute ischemia. The leg is warm. She has gangrene of the right 1st digit. She has n interdigitious ulcer between her 4th and 5th digit which causes her a lot of pain. This was inspected, cleaned, and then seperated with gauze. Her pain resolved. Objective - Constitutional Vitals: Vital Signs - 12hr 04/12/19 04/12/19 04/12/19 01:08 01:59 02:00 Temperature 98.6 F 98.7 F Pulse Rate 52 L 70 Respiratory 18 Rate Blood Pressure 144/59 O2 Sat by Pulse 90 83 L Oximetry 04/12/19 04/12/19 07:21 09:30 Temperature 98.0 F Pulse Rate 96 H 130 H Respiratory 18 Rate Blood Pressure 131/55 171/71 O2 Sat by Pulse 93 Oximetry General appearance: Present: mild distress - EENT Eyes: EOM intact ENT: hearing intact - Respiratory Respiratory effort: normal Extremities: normal temperature, normal color, abnormal (see subjective) - Gastrointestinal General gastrointestinal: Present: soft - Psychiatric Psychiatric: agitated - Labs CBC & Chem 7: 04/07/19 00:36 04/08/19 04:56 Labs: Abnormal lab results 04/11/19 04/11/19 04/11/19 Range/Units 11:34 16:05 20:57 POC Glucose 152 H 135 H 119 H (70-105) 04/12/19 Range/Units 07:25 POC Glucose 119 H (70-105) Medications & Allergies - Medications Allergies/Adverse Reactions: Allergies No Known Allergies Allergy (Verified 04/05/19 15:30) Home Medications: Home Medications Medication Instructions Recorded Confirmed Last Taken Type Ibuprofen [Motrin] 800 mg PO Q8HR PRN #21 tablet 12/08/18 04/06/19 Unknown Rx Gabapentin [Neurontin] 300 mg PO BID 04/05/19 04/06/19 Unknown History Losartan [Cozaar] 100 mg PO QDAY 04/05/19 04/06/19 Unknown History Metoprolol [Lopressor TAB] 25 mg PO QDAY 04/05/19 04/06/19 Unknown History Ranitidine HCl [Zantac] 300 mg PO QDAY 04/05/19 04/06/19 Unknown History Simvastatin 40 mg PO QHS 04/05/19 04/06/19 Unknown History Vitamin D2 50,000 units PO QWEEK 04/05/19 04/06/19 Unknown History amLODIPine [Norvasc] 10 mg PO DAILY 04/05/19 04/05/19 Unknown History metFORMIN [Glucophage] 500 mg PO QHS 04/05/19 04/06/19 Unknown History Active Medications: Generic Name Dose Route Start Last Admin Trade Name Freq PRN Reason Stop Dose Admin Acetaminophen 650 mg 04/05/19 20:21 04/10/19 20:26 Tylenol PO 650 mg Q4H PRN Administration Pain MILD(1-3)/Fever >100.5/HYLTON Amlodipine Besylate 10 mg 04/06/19 15:00 04/12/19 09:30 Norvasc PO 10 mg DAILY KHARI Administration Aspirin 81 mg 04/06/19 10:00 04/12/19 09:41 Baby Aspirin PO 81 mg QDAY KHARI Administration Atorvastatin Calcium 20 mg 04/05/19 22:00 04/11/19 22:11 Lipitor PO 20 mg QHS KHARI Administration Cilostazol 50 mg 04/12/19 10:00 Pletal PO BID KHARI Clopidogrel Bisulfate 75 mg 04/11/19 10:00 04/12/19 09:32 Plavix PO Not Given QDAY [facility] Dextrose 50 ml 04/05/19 20:21 D50w (25gm) Syringe IV PRN PRN Hypoglycemia Enoxaparin Sodium 40 mg 04/06/19 10:00 04/12/19 09:31 Lovenox SUB-Q Not Given QDAY [facility] Gabapentin 300 mg 04/06/19 16:00 04/12/19 09:30 Neurontin PO 300 mg BID KHARI Administration Hydralazine HCl 10 mg 04/06/19 20:11 04/11/19 03:12 Apresoline IV 10 mg Q4HR PRN Administration SBP>160 OR DBP>100 Sodium Chloride 500 mls @ 50 mls/hr 04/10/19 08:30 04/10/19 08:32 Nacl 0.9% 500 Ml IV 50 mls/hr DIRECT KHARI Administration Cefepime HCl 2 gm in 100 mls @ 200 mls/hr 04/11/19 22:00 04/12/19 09:33 Maxipime/Ns 2 Gm/100 Ml IV 05/04/19 22:29 200 mls/hr Q12HR KHARI Administration Protocol Insulin Human Lispro 0 unit 04/05/19 22:00 04/12/19 07:35 Humalog SUB-Q Not Given ACHS KHARI Protocol Metoprolol Tartrate 25 mg 04/06/19 16:00 04/12/19 09:30 Lopressor PO 25 mg QDAY KHARI Administration Ondansetron HCl 4 mg 04/05/19 20:21 Zofran IV Q8H PRN Nausea And Vomiting Oxycodone/Acetaminophen 2 tab 04/10/19 22:02 04/12/19 03:11 Percocet 5/325 PO 2 tab Q6H PRN Administration Pain, Moderate (4-6) Sodium Chloride 10 ml 04/05/19 22:00 04/11/19 22:12 Sodium Chloride Flush Syringe 10 Ml IV 10 ml BID KHARI Administration Sodium Chloride 10 ml 04/05/19 20:21 Sodium Chloride Flush Syringe 10 Ml IV PRN PRN LINE FLUSH
[2019-04-12] MEDS ORDERED: NACL 0.9% 250ML 250 ML ONE (11:00)
[2019-04-12] MEDS ORDERED: HEPARIN/NS 5000 UNIT/500ML(CATH LAB) 500 ML IR ONE (11:00)
[2019-04-12] MEDS ORDERED: XYLOCAINE 2% INFILTRATI ONE (11:00)
[2019-04-12] MEDS ORDERED: HEPARIN 10,000 UNITS/10 ML ONE (11:00)
[2019-04-12] MEDS: VERSED ONE ×2 (11:38→11:41)
[2019-04-12] MEDS: SUBLIMAZE ONE ×2 (11:38→11:41)
[2019-04-12] MEDS: SODIUM CHLORIDE FLUSH SYRINGE 10 ML IV SCH (12:09)
--- NOTE | 2019-04-12 12:12 | Operative Report ---
Operative Report Operative Report: Exam: Ultrasound and fluoroscopic guided placement of tunneled central venous catheter Clinical indication: Patient with nonhealing wounds and bacteremia, catheter needed for outpatient antibiotics Date: 04/12/2019 Procedure: Following an explanation of the risks, benefits and alternatives; written informed consent was obtained. The patient was brought to the angiographic suite and placed in supine position on the examination table. Initial ultrasound evaluation of her neck demonstrated a patent right internal jugular vein. The patient's right neck and chest wall were prepped and draped in usual sterile fashion. 1% lidocaine was used for anesthesia. Her ultrasound guidance, the right internal jugular vein was cannulated with a 7 cm 18-gauge needle. A 0.035 guidewire was advanced under fluoroscopy to the IVC to document intravenous positioning. The needle was removed and a 4 [place]an vertebral catheter was advanced over the guidewire to the IVC. The 0.035 guidewire was exchanged for a 0.018 guidewire. An appropriate catheter exit site was chosen along the lateral right chest wall. 1% lidocaine was used for anesthesia at the catheter exit site and along the tunnel tract. A Bard dual-lumen power PICC was then tunneled antegrade from the catheter exit site to the venotomy site. The vertebral catheter was removed and a 5.5 [place]an peel-away sheath placed over the guidewire and advanced centrally under fluoroscopy. Following standard guidewire measurements, the guidewire was removed. The PICC line was cut to length and inserted to the peel-away sheath in the peel-away sheath removed. The catheter tip was positioned in the proximal right atrium. Both ports flushed and aspirated easily and were then locked with heparinized saline. The venotomy was closed using 4-0 Vicryl suture. 4-0 Vicryl suture was also used to approximate the catheter exit site. The catheter was securely fastened of the skin surface using a StatLock device. A sterile dressing was applied. The patient tolerated the procedure well. There were no immediate post procedure complications. Conscious sedation was performed under the guidance of radiologic nursing. Continuous cardiopulmonary monitoring was utilized. Impression: Ultrasound and fluoroscopic guided placement of tunneled central venous PICC via the right internal jugular vein.
--- NOTE | 2019-04-12 14:09 | Discharge Summary ---
Providers - Providers Date of Admission: 04/05/19 20:21 Date of discharge: 04/12/19 Attending physician: CAMI BRUNSON 04/05/19 20:27 Consult to Physician [CONS] Routine Comment: spoke to iva GRIMM/ rosie Consulting Provider: SARAH HOLLEY Physician Instructions: Reason For Exam: foot infection, ?? Osteomyelitis, hx DM2 Consult to Wound/ET Nurse [CONS] Routine Reason For Exam: wound eval 04/06/19 09:35 Physical Therapy Evaluation and Treat [CONS] Routine Comment: Reason For Exam: Weakness 04/06/19 16:11 Consult to Physician [CONS] Routine Comment: called office/ rosie Consulting Provider: CASTILLO PONCE Physician Instructions: Reason For Exam: Occlusion of right mid superficial femoral artery 04/07/19 13:17 Consult to Wound/ET Nurse [CONS] Routine Reason For Exam: wound evaluation - right toe gangrene 04/07/19 14:28 Consult to Physician [CONS] Routine Comment: called office/rosie Consulting Provider: REJI CALVILLO Physician Instructions: Reason For Exam: EVALUATE RIGHT GREAT TOE/POSSIBLE DEBRIDMENT. 04/09/19 15:59 Midline [Consult to PICC Line RN] [CONS] Routine Reason For Exam: iv access Type Line:: Midline 04/10/19 14:45 Consult to Physician [CONS] Routine Comment: Picc line nurse tried multiple times Consulting Provider: CASTILLO PONCE Physician Instructions: Reason For Exam: needs IR placed picc line, 04/11/19 13:37 Consult to Case Management [CONS] Routine Services Needed at Discharge: Home Health Services Notified:: Simona Dupree Physician Instructions: [facility] M [phone] O [phone] F [phone] OUTPATIENT PARENTERAL ANTIBIOTIC THERAPY ORDERS Diagnoses: osteomyelitis and the first distal phalanx, the third distal phalanx, as well as within all of the phalanges of the fourth and fifth digits. Antimicrobial administration: Cefepime 2 gms IV every 12 hours for 4 weeks ending 05-04-19. Remove PICC line after last dose unless otherwise instructed. Lines: PICC Lab monitoring: CBC, BUN, Creatinine, ALT, AST, CRP, ESR once a week preferly on Wednesday morning. Please fax results to [phone] and call [phone] for critical lab results. Fartun Rose NP/Sarah Fuentes MD Date: 04/11/19 [facility] Condition: Stable Hospital course: 83-year-old woman with history of hypertension, diabetes, Hyperlipidemia, breast cancer in remission who presents with chronic foot ulcers that were getting worse. She had been seen a sales assistant, had been on antibiotics for 2 weeks. But then she had worsening sharp bilateral lower leg pain. She was planned for MRI of her feet as outpatient was unable to keep the appointment due to worsening pain. She was then presented to the [facility] for further evaluation and management. 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 - vascular/IR input appreciated, on 04/10 s/p Right profunda femoral artery and common femoral artery revascularization - per Dr Ponce no debridement of the wound until complete revascularization can be performed and it is also Unclear if revascularization will be possible given the extent of her arterial disease. Patient had severe common femoral artery disease, profunda severe disease, long segment superficial femoral artery occlusion, and unclear runoff given her motion during the procedure. Patient is a very suboptimal candidate for bypass. - Will Continue Aspirin, plavix, and followup in clinic with dr Ponce as outpatient. /Chronic right foot pain with presumed right toe gangrene - Started on cefepime, ID consult at -ID recommended to discharge on Cefepime 2 gms IV every 12 hours for 4 weeks ending 05-04-19, -Status post PICC placed today, home health arrange Diabetes mellitus - Well-controlled, - A1c is 5.7,-managed with Sliding-scale insulin Hypertension - will Continue amlodipine and metoprolol DVT Prophylaxis, on lovenox Disposition: home with IV antibiotics set up Hospitalist Physical exam: GENERAL: Elderly -Danish female lying on bed appeared to be in no discomfort. HEENT: Normocephalic. Atraumatic. No conjunctival congestion or icterus. Patient has moist mucous membranes. NECK: Supple. Trachea midline. CHEST/LUNGS: Clear to auscultated bilaterally, breathing nonlabored. No wheezes crackles or rhonchi. HEART/CARDIOVASCULAR: Regular in rate and rhythm. S1 and S2 positive. ABDOMEN: Abdomen is soft, nontender. Patient has normal bowel sounds. SKIN: There is no rash. Warm and dry. NEURO: No focal motor deficit. Follows command. MUSCULOSKELETAL: No joint effusion or tenderness. EXTRIMITY: No edema, no cyanosis or clubbing. Wound dressing on right foot PSYCH: Cooperative. Disposition: [id number]/[place]-06 HOME UNDER HOME [facility] Time spent for discharge: 34 minutes Core Measure Documentation - Palliative Care Palliative Care/ Comfort Measures: Not Applicable - Core Measures Any of the following diagnoses?: none Exam - Constitutional Vitals: Temp Pulse Resp BP Pulse Ox 98.0 F 130 H 18 171/71 93 04/12/19 07:21 04/12/19 09:30 04/12/19 07:21 04/12/19 09:30 04/12/19 09:00 Plan Activity: up only with assistance, fall precautions Weight Bearing Status: Non-Weight Bearing Diet: low fat, low salt Wound: per wound nurse instructions Additional Instructions: Continue on Cefepime 2 gms IV every 12 hours for 4 weeks ending 05-04-19 Follow up with: CASTILLO PONCE MD [Staff Physician] - 7 Days SARAH HOLLEY MD [Staff Physician] - 7 Days [facility] MD MICHELET [Primary Care Provider] - 7 Days Prescriptions: Aspirin [Aspirin BABY CHEW TAB] 81 mg PO QDAY #30 tab.chew oxyCODONE /ACETAMINOPHEN [Percocet 5/325 mg] 2 tab PO Q6H PRN #20 tablet PRN Reason: Pain, Moderate (4-6) Clopidogrel [Plavix] 75 mg PO QDAY #30 tablet Cilostazol [Pletal] 50 mg PO BID #30 tablet
[2019-04-12 14:35] VITALS: BP 171/77
== END 2019-04-12 17:40 | disposition home health service (06) | DRG 271 ==
LOC: ED 15:27 → 2B-ACE 20:21
PROVIDERS: ADMIT Internal Medicine; ATTEND Internal Medicine
PROC: 05HB33Z Insertion of Infusion Device into Right Basilic Vein, Percutaneous Approach (ICD-10-PCS; 2019-04-09)
PROC: 04CK3ZZ Extirpation of Matter from Right Femoral Artery, Percutaneous Approach (ICD-10-PCS; principal; 2019-04-10)
PROC: 047K3Z1 Dilation of Right Femoral Artery using Drug-Coated Balloon, Percutaneous Approach (ICD-10-PCS; 2019-04-10)
PROC: B41D1ZZ Fluoroscopy of Aorta and Bilateral Lower Extremity Arteries using Low Osmolar Contrast (ICD-10-PCS; 2019-04-10)
PROC: 04V Lower Arteries, Restriction (ICD-10-PCS; 2019-04-10)
PROC: 3E05317 Introduction of Other Thrombolytic into Peripheral Artery, Percutaneous Approach (ICD-10-PCS; 2019-04-10)
PROC: 0JH63XZ Insertion of Tunneled Vascular Access Device into Chest Subcutaneous Tissue and Fascia, Percutaneous Approach (ICD-10-PCS; 2019-04-12)
PROC: 02H633Z Insertion of Infusion Device into Right Atrium, Percutaneous Approach (ICD-10-PCS; 2019-04-12)
PROC: B2141ZZ Fluoroscopy of Right Heart using Low Osmolar Contrast (ICD-10-PCS; 2019-04-12)
PROC: B244YZZ Ultrasonography of Right Heart using Other Contrast (ICD-10-PCS; 2019-04-12)
DX: E11.52 Type 2 diabetes mellitus with diabetic peripheral angiopathy with gangrene (principal); R78.81 Bacteremia; I70.261 Atherosclerosis of native arteries of extremities with gangrene, right leg; I77.4 Celiac artery compression syndrome; E11.621 Type 2 diabetes mellitus with foot ulcer; E11.40 Type 2 diabetes mellitus with diabetic neuropathy, unspecified; I10 Essential (primary) hypertension; I16.0 Hypertensive urgency; G89.29 Other chronic pain; E78.5 Hyperlipidemia, unspecified; L97.511 Non-pressure chronic ulcer of other part of right foot limited to breakdown of skin; I70.1 Atherosclerosis of renal artery; F03.90 Unspecified dementia, unspecified severity, without behavioral disturbance, psychotic disturbance, mood disturbance, and anxiety; Z85.3 Personal history of malignant neoplasm of breast; Z90.12 Acquired absence of left breast and nipple
CPT/HCPCS: 36415; 36558; 37225; 37242; 75625; 75635; 75710; 76937; 77001; 80048; 80053; 80061; 80202; 82962; 83036; 85025; 85027; 85347; 85610; 85652; 85730; 86140; 87040; 93005; 93010; 93925; 93970; 96365; 99285; G0378; A4649; A9270-GY; A9577; C1714; C1725; C1751; C1769; C1884; C1887; C1894; C2623; J0295; J0360; J0690; J0692; J1170; J1200; J1644; J1650; J1815; J2250; J2270; J2997; J3010; J3370; J7040; J7050; Q9967

== ENCOUNTER 2021-12-01 23:02 | Inpatient (IN) | payer MEDICARE ==
[2021-12-02] MEDS ORDERED: LEVALBUTEROL 0.63 MG/3 ML NEBU IH ONE ×2 (01:12→10:00)
[2021-12-02] MEDS ORDERED: IPRATROPIUM 0.02% NEBU 2.5 ML IH ONE (01:12)
--- NOTE | 2021-12-02 01:19 | Emergency Department Report ---
HPI - General Chief Complaint: Dyspnea/Respdistress Time Seen by Provider: 12/02/21 01:00 - [facility] HPI: Room 24 The patient is an 86-year-old female present with a chief complaint of shortness of breath. The patient states for the past 3 days she has had shortness of breath. Patient admits to a cough that has been productive of sputum. Patient also admits to subjective fever. The patient has increased work of breathing which makes tenderness history limited. Patient acknowledges she had chest pain earlier today but none now ED Past Medical Hx - Past Medical History Hx Hypertension: Yes Hx Diabetes: Yes Additional medical history: Elevated cholesterol - Surgical History Hx Breast Surgery: Yes (L mastectomy) - Family History Family history: no significant - Social History Smoking Status: Former Smoker - Medications Home Medications: Home Medications Medication Instructions Recorded Confirmed Last Taken Type Gabapentin 300 mg PO BID 04/05/19 04/06/19 Unknown History Metoprolol [Lopressor TAB] 25 mg PO QDAY 04/05/19 04/06/19 Unknown History Simvastatin 40 mg PO QHS 04/05/19 04/06/19 Unknown History Vitamin D2 50,000 units PO QWEEK 04/05/19 04/06/19 Unknown History amLODIPine 10 mg PO DAILY 04/05/19 04/05/19 Unknown History metFORMIN [Glucophage] 500 mg PO QHS 04/05/19 04/06/19 Unknown History raNITIdine HCl [Zantac] 300 mg PO QDAY 04/05/19 04/06/19 Unknown History Aspirin [Aspirin BABY CHEW TAB] 81 mg PO QDAY #30 tab.chew 04/12/19 Unknown Rx Clopidogrel [Plavix] 75 mg PO QDAY #30 tablet 04/12/19 Unknown Rx cilostazoL [Pletal] 50 mg PO BID #30 tablet 04/12/19 Unknown Rx oxyCODONE /ACETAMINOPHEN [Percocet 2 tab PO Q6H PRN #20 tablet 04/12/19 Unknown Rx 5/325 mg] ED Review of Systems ROS: Stated complaint: DOTTIE Other details as noted in HPI Constitutional: fever Eyes: denies: eye pain ENT: denies: throat pain Respiratory: cough, shortness of breath Cardiovascular: chest pain Endocrine: no symptoms reported Gastrointestinal: denies: abdominal pain Genitourinary: denies: dysuria Neurological: denies: headache Physical Exam - Physical Exam Physical Exam: GENERAL: The patient is well-developed well-nourished female lying on stretcher exhibiting increased work of breathing. [] HEENT: Normocephalic. Atraumatic. Extraocular motions are intact. Patient has moist mucous membranes. NECK: Supple. Trachea midline CHEST/LUNGS: Coarse breath sounds and crackles at the left base. There is accessory muscle use HEART/CARDIOVASCULAR: Regular. There is tachycardia. There is no gallop rub or murmur. ABDOMEN: Abdomen is soft, nontender. Patient has normal bowel sounds. There is no abdominal distention. SKIN: There is no rash. There is no edema. There is no diaphoresis. NEURO: The patient is awake, alert, and oriented. The patient is cooperative. The patient has no focal neurologic deficits. The patient has normal speech. GCS 15 MUSCULOSKELETAL: There is no evidence of acute injury. ED Medical Decision Making - Lab Data Result diagrams: 12/02/21 01:24 12/02/21 01:24 Laboratory Tests 12/02/21 12/02/21 12/02/21 01:24 01:24 01:24 WBC 15.4 H RBC 4.41 Hgb 12.7 Hct 40.6 MCV 92 MCH 29 MCHC 31 RDW 15.8 H Plt Count 319 Lymph % (Auto) 6.3 L [place] % (Auto) 11.7 H Eos % (Auto) 0.0 Baso % (Auto) 0.2 Lymph # (Auto) 1.0 L [place] # (Auto) 1.8 H Eos # (Auto) 0.0 Baso # (Auto) 0.0 Seg Neutrophils % 81.8 H Seg Neutrophils # 12.6 H PT 15.9 H INR 1.15 H APTT 31.5 VBG pH Sodium 141 Potassium 3.5 L Chloride 100.3 Carbon Dioxide 4 L* Anion Gap 40 BUN 43 H Creatinine 5.1 H Estimated GFR 8 BUN/Creatinine Ratio 8 Glucose 239 H Lactic Acid Calcium 9.3 Total Bilirubin 0.40 AST 86 H ALT 69 H Alkaline Phosphatase 91 Total Creatine Kinase 254 H CK-MB (CK-2) 20.2 H CK-MB (CK-2) Rel Index 7.9 H Troponin T Total Protein 7.7 Albumin 4.0 Albumin/Globulin Ratio 1.1 12/02/21 12/02/21 12/02/21 01:24 01:24 01:24 WBC RBC Hgb Hct MCV MCH MCHC RDW Plt Count Lymph % (Auto) [place] % (Auto) Eos % (Auto) Baso % (Auto) Lymph # (Auto) [place] # (Auto) Eos # (Auto) Baso # (Auto) Seg Neutrophils % Seg Neutrophils # PT INR APTT VBG pH 7.167 L* Sodium Potassium Chloride Carbon Dioxide Anion Gap BUN Creatinine Estimated GFR BUN/Creatinine Ratio Glucose Lactic Acid 15.70 H* Calcium Total Bilirubin AST ALT Alkaline Phosphatase Total Creatine Kinase CK-MB (CK-2) CK-MB (CK-2) Rel Index Troponin T 2.600 H* Total Protein Albumin Albumin/Globulin Ratio - EKG Data -: EKG Interpreted by Me EKG shows normal: sinus rhythm Rate: tachycardia (125 bpm) - EKG Data When compared to previous EKG there are: changes noted Interpretation: subendocardial ischemia - Radiology Data Radiology results: report reviewed (Chest x-ray), image reviewed (Chest x-ray) interpreted by me: Chest [id number], left upper lobe consolidation. No pneumothorax CHEST 1 VIEW INDICATION / CLINICAL INFORMATION: Shortness of breath, cough. COMPARISON: Chest x-ray 12/08/2018 FINDINGS: SUPPORT DEVICES: None. HEART / ME DIASTINUM: No significant abnormality. LUNGS / PLEURA: Increase in bilateral perihilar airspace opacities compatible with alveolar pulmonary edema. No pneumothorax. ADDITIONAL FINDINGS: No significant additional findings. IMPRESSION: 1. Interval development of bilateral perihilar airspace opacities compatible with alveolar pulmonary edema. Signer Name: Ortega Neumann II, MD Signed: 12/02/2021 12:30 AM Workstation Name: [id number] - Differential Diagnosis Pneumonia, CHF, bronchitis, ACS Critical care attestation.: If time is entered above; I have spent that time in minutes in the direct care of this critically ill patient, excluding procedure time. ED Disposition Clinical Impression: Pulmonary edema, Shortness of breath, Suspected COVID-19 virus infection, Acute renal failure, Metabolic acidosis Disposition: ADMITTED INPATIENT Is pt being admited?: Yes Condition: Fair Instructions: Pulmonary Edema (ED) Time of Disposition: 03:40 (Hospitalist notified (Dr Salmeron))
[2021-12-02] MEDS ORDERED: cefTRIAXone/NS 1 GM/50 ML 1 GM/50 ML BAG IV ONE (01:33)
--- NOTE | 2021-12-02 01:34 | XRay Report ---
CHEST 1 VIEW INDICATION / CLINICAL INFORMATION: Shortness of breath, cough. COMPARISON: Chest x-ray 12/08/2018 FINDINGS: SUPPORT DEVICES: None. HEART / MEDIASTINUM: No significant abnormality. LUNGS / PLEURA: Increase in bilateral perihilar airspace opacities compatible with alveolar pulmonary edema. No pneumothorax. ADDITIONAL FINDINGS: No significant additional findings. IMPRESSION: 1. Interval development of bilateral perihilar airspace opacities compatible with alveolar pulmonary edema. Signer Name: Ortega Neumann II, MD Signed: 12/02/2021 1:30 AM Workstation Name: [id number]
[2021-12-02 02:02] LABS: Basophils % (Auto) 0.2 % (0.0-1.8); Hematocrit 40.6 % (30.3-42.9); Hemoglobin 12.7 gm/dl (10.1-14.3); Lymphocytes % (Auto) 6.3 % (13.4-35.0); Mean Corpuscular HGB Conc 31 % (30-34); Mean Corpuscular Volume 92 fl (79-97); Monocytes # (Auto) 1.8 K/mm3 (0.0-0.8); Monocytes % (Auto) 11.7 % (0.0-7.3); Platelet Count 319 K/mm3 (140-440); Red Blood Count 4.41 M/mm3 (3.65-5.03); Red Cell Distribution Width 15.8 % (13.2-15.2)
[2021-12-02 02:13] LABS: Partial Thromboplastin Time 31.5 Sec. (24.2-36.6)
[2021-12-02 02:19] LABS: Creatine Kinase MB 20.2 ng/mL (0.0-4.0)
[2021-12-02 02:20] LABS: Calcium 9.3 mg/dL (8.4-10.2)
[2021-12-02 02:36] LABS: INR 1.15 (0.87-1.13)
[2021-12-02] MEDS ORDERED: AZITHROMYCIN/NS 500 MG/250 ML 500 MG/250 ML BAG IV ONE (03:29)
[2021-12-02] MEDS ORDERED: SODIUM BICARB 8.4% 50 MEQ/50 ML SYRINGE IV ONE ×2 (03:37→06:30)
[2021-12-02] MEDS ORDERED: ONDANSETRON 4 MG/2 ML INJ IV PRN (04:37)
[2021-12-02] MEDS ORDERED: MORPHINE 4 MG/1 ML INJ IV PRN (04:37)
[2021-12-02] MEDS ORDERED: DEXTROSE 50% IN WATER (25GM) 50 ML SYRINGE IV PRN (04:37)
[2021-12-02] MEDS ORDERED: MAGNESIUM HYDROXIDE (MOM) ORAL LIQD UDC PO PRN (04:37)
[2021-12-02] MEDS ORDERED: ACETAMINOPHEN 325 MG TAB PO PRN (04:37)
[2021-12-02 04:39] LABS: Chol/HDL Ratio 2.39 %; HDL Cholesterol 74 mg/dL (40-59); LDL Cholesterol,Direct 91 mg/dL (50-130)
[2021-12-02] MEDS ORDERED: SODIUM CHLORIDE 0.9% 1000 ML 1,000 ML IV SCH (04:45)
[2021-12-02] MEDS ORDERED: MORPHINE 4 MG/1 ML INJ IV ONE (04:52)
[2021-12-02 04:59] LABS: C-Reactive Protein 6.6 mg/dL (0.00-1.30)
--- NOTE | 2021-12-02 05:04 | History and Physical Report ---
History of Present Illness Date of examination: 12/02/21 Date of admission: 12/02/2021 Chief complaint: Shortness of breath. History of present illness: 86-year-old -[place] female with known history of hypertension ,diabetes mellitus and right AKA presents to the emergency room today complaining of shortness of breath which has been ongoing for the past 3 days. She has also had some cough which is productive. She admits to having some fever at home but denies any chills. She denies any chest pain, no headache or dizziness and no diaphoresis. Patient denies any sick contacts and no recent travel. Denies contact with anyone with COVID-19. She states she has been fully vaccinated against COVID- 19. Work-up in the emergency room today, chest x-ray reveals development of bilateral operative hilar airspace opacities compatible with alveolar pulmonary edema. Labs were significant for leukocytosis of 15.4, D-dimer 1461, potassium of 3.5, CO2 of 4, lactic acid of 15.7, troponin of 2.6, BNP greater than 3500: Patient commenced on empiric IV antibiotics for possible underlying pneumonia. She will also be ruled out for COVID-19. Past History Past Medical History: diabetes, hypertension, hyperlipidemia Past Surgical History: mastectomy (Left) Social history: smoking (Former smoker) Family history: no significant family history Medications and Allergies Allergies Allergy/AdvReac Type Severity Reaction Status Date / Time No Known Allergies Allergy Verified 04/05/19 15:30 Home Medications Medication Instructions Recorded Confirmed Last Taken Type Gabapentin 300 mg PO BID 04/05/19 04/06/19 Unknown History Metoprolol [Lopressor TAB] 25 mg PO QDAY 04/05/19 04/06/19 Unknown History Simvastatin 40 mg PO QHS 04/05/19 04/06/19 Unknown History Vitamin D2 50,000 units PO QWEEK 04/05/19 04/06/19 Unknown History amLODIPine 10 mg PO DAILY 04/05/19 04/05/19 Unknown History metFORMIN [Glucophage] 500 mg PO QHS 04/05/19 04/06/19 Unknown History raNITIdine HCl [Zantac] 300 mg PO QDAY 04/05/19 04/06/19 Unknown History Aspirin [Aspirin BABY CHEW TAB] 81 mg PO QDAY #30 tab.chew 06/26/19 Unknown Rx Clopidogrel [Plavix] 75 mg PO QDAY #30 tablet 04/12/19 Unknown Rx cilostazoL [Pletal] 50 mg PO BID #30 tablet 04/12/19 Unknown Rx oxyCODONE /ACETAMINOPHEN [Percocet 2 tab PO Q6H PRN #20 tablet 04/12/19 Unknown Rx 5/325 mg] Active Meds: Active Medications Acetaminophen (Acetaminophen 325 Mg Tab) 650 mg PO Q4H PRN PRN Reason: Pain MILD(1-3)/Fever >100.5/HYLTON Dextrose (Dextrose 50% In Water (25gm) 50 Ml Syringe) 50 ml IV Q30MIN PRN; Protocol PRN Reason: Hypoglycemia Heparin Sodium (Porcine) (Heparin 5,000 Unit/1 Ml Vial) 5,000 unit SUB-Q Q8HR KHARI Sodium Chloride (Nacl 0.9% 1000 Ml) 1,000 mls @ 125 mls/hr IV DIRECT KHARI Ceftriaxone Sodium (Rocephin/Ns 2 Gm/100 Ml) 2 gm in 100 mls @ 200 mls/hr IV Q24H KHARI; Protocol Azithromycin (Zithromax/Ns) 500 mg in 250 mls @ 250 mls/hr IV Q24H KHARI; Protocol Insulin Human Lispro (Insulin Lispro 100 Unit/Ml) 0 unit SUB-Q ACHS KHARI; Rom col Magnesium Hydroxide (Magnesium Hydroxide (Mom) Oral Liqd Udc) 30 ml PO Q4H PRN PRN Reason: Constipation Morphine Sulfate (Morphine 2 Mg/1 Ml Inj) 2 mg IV Q4H PRN PRN Reason: Pain, Moderate (4-6) Morphine Sulfate (Morphine 4 Mg/1 Ml Inj) 4 mg IV Q4H PRN PRN Reason: Pain , Severe (7-10) Ondansetron HCl (Ondansetron 4 Mg/2 Ml Inj) 4 mg IV Q8H PRN PRN Reason: Nausea And Vomiting Sodium Chloride (Sodium Chloride 0.9% 10 Ml Flush Syringe) 10 ml IV BID KHARI Sodium Chloride (Sodium Chloride 0.9% 10 Ml Flush Syringe) 10 ml IV PRN PRN PRN Reason: LINE FLUSH Review of Systems Constitutional: fever, no chills Ears, nose, mouth and throat: no nasal congestion, no sore throat Cardiovascular: no chest pain, no palpitations Respiratory: cough, shortness of breath Gastrointestinal: no abdominal pain, no nausea, no vomiting, no diarrhea Genitourinary Female: no flank pain, no dysuria, no hematuria Musculoskeletal: no neck pain, no low back pain Integumentary: no rash, no pruritis Neurological: no headaches, no confusion Psychiatric: no anxiety, no depression Endocrine: no polyphagia, no polydipsia, no polyuria, no nocturia Exam - Constitutional Vitals: Temp Pulse Resp BP Pulse Ox 94.3 F L 126 H 24 113/65 97 12/02/21 01:28 12/02/21 03:57 12/02/21 03:57 12/02/21 03:57 12/02/21 03:57 General appearance: Present: mild distress, well-nourished - EENT Eyes: Present: PERRL, EOM intact. Absent: scleral icterus ENT: hearing intact, clear oral mucosa, dentition normal - Neck Neck: Present: supple, normal ROM - Respiratory Respiratory effort: normal Respiratory: bilateral: diminished - Cardiovascular Rhythm: regular Heart Sounds: Present: S1 & S2. Absent: gallop, systolic murmur, diastolic murmur, rub, click - Extremities Extremities: no ischemia, pulses intact, pulses symmetrical, No edema, normal temperature, normal color, Full ROM, abnormal (Right AKA) Peripheral Pulses: within normal limits - Abdominal General gastrointestinal: Present: soft, non-tender, non-distended, normal bowel sounds. Absent: mass - Integumentary Integumentary: Present: clear, warm, dry, decreased turgor. Absent: rash - Musculoskeletal Musculoskeletal: strength equal bilaterally - Psychiatric Psychiatric: appropriate mood/affect, intact judgment & insight, memory intact, cooperative - Neurologic Neurologic: CNII-XII intact, no focal deficits, moves all extremities HEART Score - HEART Score Troponin: Troponin T 2.600 ng/mL (0.00-0.029) H* 12/02/21 01:24 Results - Labs CBC & Chem 7: 12/02/21 01:24 12/02/21 04:18 Labs: Abnormal lab results 12/02/21 12/02/21 12/02/21 Range/Units 01:24 01:24 01:24 WBC 15.4 H (4.5-11.0) K/mm3 RDW 15.8 H (13.2-15.2) % Lymph % (Auto) 6.3 L (13.4-35.0) % [place] % (Auto) 11.7 H (0.0-7.3) % Lymph # (Auto) 1.0 L (1.2-5.4) K/mm3 [place] # (Auto) 1.8 H (0.0-0.8) K/mm3 Seg Neutrophils % 81.8 H (40.0-70.0) % Seg Neutrophils # 12.6 H (1.8-7.7) K/mm3 PT 15.9 H (12.2-14.9) Sec. INR 1.15 H (0.87-1.13) D-Dimer (0-234) ng/mlDDU VBG pH (7.320-7.420) Potassium 3.5 L (3.6-5.0) mmol/L Carbon Dioxide 4 L* (22-30) mmol/L BUN 43 H (7-17) mg/dL Creatinine 5.1 H (0.6-1.2) mg/dL Glucose 239 H (65-100) mg/dL Lactic Acid (0.7-2.0) mmol/L AST 86 H (5-40) units/L ALT 69 H (7-56) units/L Lactate Dehydrogenase (91-180) units/L Total Creatine Kinase 254 H (30-135) units/L CK-MB (CK-2) 20.2 H (0.0-4.0) ng/mL CK-MB (CK-2) Rel Index 7.9 H (0-4) Troponin T (0.00-0.029) ng/mL C-Reactive Protein (0.00-1.30) mg/dL NT-Pro-B Natriuret Pep (0-900) pg/mL HDL Cholesterol (40-59) mg/dL 12/02/21 12/02/21 12/02/21 Range/Units 01:24 01:24 01:24 WBC (4.5-11.0) K/mm3 RDW (13.2-15.2) % Lymph % (Auto) (13.4-35.0) % [place] % (Auto) (0.0-7.3) % Lymph # (Auto) (1.2-5.4) K/mm3 [place] # (Auto) (0.0-0.8) K/mm3 Seg Neutrophils % (40.0-70.0) % Seg Neutrophils # (1.8-7.7) K/mm3 PT (12.2-14.9) Sec. INR (0.87-1.13) D-Dimer (0-234) ng/mlDDU VBG pH 7.167 L* (7.320-7.420) Potassium (3.6-5.0) mmol/L Carbon Dioxide (22-30) mmol/L BUN (7-17) mg/dL Creatinine (0.6-1.2) mg/dL Glucose (65-100) mg/dL Lactic Acid 15.70 H* (0.7-2.0) mmol/L AST (5-40) units/L ALT (7-56) units/L Lactate Dehydrogenase (91-180) units/L Total Creatine Kinase (30-135) units/L CK-MB (CK-2) (0.0-4.0) ng/mL CK-MB (CK-2) Rel Index (0-4) Troponin T 2.600 H* (0.00-0.029) ng/mL C-Reactive Protein (0.00-1.30) mg/dL NT-Pro-B Natriuret Pep > 3500 H (0-900) pg/mL HDL Cholesterol 74 H (40-59) mg/dL 12/02/21 12/02/21 12/02/21 Range/Units 04:18 04:18 04:18 WBC (4.5-11.0) K/mm3 RDW (13.2-15.2) % Lymph % (Auto) (13.4-35.0) % [place] % (Auto) (0.0-7.3) % Lymph # (Auto) (1.2-5.4) K/mm3 [place] # (Auto) (0.0-0.8) K/mm3 Seg Neutrophils % (40.0-70.0) % Seg Neutrophils # (1.8-7.7) K/mm3 PT (12.2-14.9) Sec. INR (0.87-1.13) D-Dimer 1461.68 H (0-234) ng/mlDDU VBG pH (7.320-7.420) Potassium (3.6-5.0) mmol/L Carbon Dioxide (22-30) mmol/L BUN (7-17) mg/dL Creatinine (0.6-1.2) mg/dL Glucose 255 H (65-100) mg/dL Lactic Acid 15.40 H* (0.7-2.0) mmol/L AST (5-40) units/L ALT (7-56) units/L Lactate Dehydrogenase 958 H (91-180) units/L Total Creatine Kinase (30-135) units/L CK-MB (CK-2) (0.0-4.0) ng/mL CK-MB (CK-2) Rel Index (0-4) Troponin T (0.00-0.029) ng/mL C-Reactive Protein 6.60 H (0.00-1.30) mg/dL NT-Pro-B Natriuret Pep (0-900) pg/mL HDL Cholesterol (40-59) mg/dL Assessment and Plan - Patient Problems (1) Pneumonia Current Visit: Yes Status: Acute Plan to address problem: Patient placed on empiric IV antibiotics. Will also await testing for COVID-19. (2) Diabetes mellitus Current Visit: Yes Status: Acute Plan to address problem: Patient placed on sliding scale insulin. We will monitor Accu-Cheks. (3) Acute renal failure Current Visit: Yes Status: Acute Plan to address problem: We will continue patient on IV fluid and monitor BUN and creatinine. Consult placed to nephrology for evaluation. Will avoid nephrotoxic agents. (4) Metabolic acidosis Current Visit: Yes Status: Acute Plan to address problem: Probably secondary to the underlying infection. We will continue on IV fluids and empiric IV antibiotics. Will monitor chemistry closely. (5) Hypertension Current Visit: No Status: Acute Plan to address problem: We will resume routine home medications and monitor vital signs closely. (6) Hypokalemia Current Visit: Yes Status: Acute Plan to address problem: Potassium will be repleted and will monitor chemistry. (7) DVT (deep venous thrombosis) Current Visit: Yes Status: Acute Plan to address problem: Patient placed on subcutaneous heparin. (8) Full code status Current Visit: Yes Status: Acute Plan to address problem: Patient is full code.
[2021-12-02] MEDS ORDERED: POTASSIUM CHLORIDE 10 MEQ 10 MEQ/100 ML BAG IV ONE (06:31)
[2021-12-02] MEDS ORDERED: SODIUM BICARBONATE 50 MEQ in SODIUM CHLORIDE 0.9% 1000 ML 1,000 ML IV SCH (07:00)
[2021-12-02] MEDS ORDERED: INSULIN LISPRO 100 UNIT/ML SUB-Q SCH (07:30)
--- NOTE | 2021-12-02 09:56 | Consultation ---
History of Present Illness - Reason for Consult Consult date: 12/02/21 acute renal failure, metabolic acidosis - History of Present Illness History obtained from medical records. The patient is an 86-year-old female present with a chief complaint of shortness of breath. The patient states for the past 3 days she has had shortness of breath. Patient reported SOB, cough productive of sputum, subjective fever and chest pain. Past History Past Medical History: diabetes, hypertension, hyperlipidemia Past Surgical History: mastectomy (Left) Social history: smoking (Former smoker) Family history: no significant family history Medications and Allergies Allergies Allergy/AdvReac Type Severity Reaction Status Date / Time No Known Allergies Allergy Verified 04/05/19 15:30 Home Medications Medication Instructions Recorded Confirmed Last Taken Type Gabapentin 300 mg PO BID 04/05/19 04/06/19 Unknown History Metoprolol [Lopressor TAB] 25 mg PO QDAY 04/05/19 04/06/19 Unknown History Simvastatin 40 mg PO QHS 04/05/19 04/06/19 Unknown History Vitamin D2 50,000 units PO QWEEK 04/05/19 04/06/19 Unknown History amLODIPine 10 mg PO DAILY 04/05/19 04/05/19 Unknown History metFORMIN [Glucophage] 500 mg PO QHS 04/05/19 04/06/19 Unknown History raNITIdine HCl [Zantac] 300 mg PO QDAY 04/05/19 04/06/19 Unknown History Aspirin [Aspirin BABY CHEW TAB] 81 mg PO QDAY #30 tab.chew 04/12/19 Unknown Rx Clopidogrel [Plavix] 75 mg PO QDAY #30 tablet 04/12/19 Unknown Rx cilostazoL [Pletal] 50 mg PO BID #30 tablet 04/12/19 Unknown Rx oxyCODONE /ACETAMINOPHEN [Percocet 2 tab PO Q6H PRN #20 tablet 04/12/19 Unknown Rx 5/325 mg] Active Meds: Active Medications Acetaminophen (Acetaminophen 325 Mg Tab) 650 mg PO Q4H PRN PRN Reason: Pain MILD(1-3)/Fever >100.5/HYLTON Dextrose (Dextrose 10% *Hypoglycemia) 0 ml IV PRN PRN; Protocol PRN Reason: Hypoglycemia Heparin Sodium (Porcine) (Heparin 5,000 Unit/1 Ml Vial) 5,000 unit SUB-Q Q8HR KHARI Sodium Chloride (Nacl 0.9% 1000 Ml) 1,000 mls @ 125 mls/hr IV DIRECT KHARI Last Admin: 12/02/21 08:20 Dose: 125 mls/hr Ceftriaxone Sodium (Rocephin/Ns 2 Gm/100 Ml) 2 gm in 100 mls @ 200 mls/hr IV Q24H KHARI; Protocol Azithromycin (Zithromax/Ns) 500 mg in 250 mls @ 250 mls/hr IV Q24H KHARI; Protoco l Sodium Bicarbonate 50 meq/ (Sodium Chloride) 1,050 mls @ 100 mls/hr IV DIRECT KHARI Insulin Human Lispro (Insulin Lispro 100 Unit/Ml) 0 unit SUB-Q ACHS KHARI; Protocol Magnesium Hydroxide (Magnesium Hydroxide (Mom) Oral Liqd Udc) 30 ml PO Q4H PRN PRN Reason: Constipation Morphine Sulfate (Morphine 2 Mg/1 Ml Inj) 2 mg IV Q4H PRN PRN Reason: Pain, Moderate (4-6) Morphine Sulfate (Morphine 4 Mg/1 Ml Inj) 4 mg IV Q4H PRN PRN Reason: Pain , Severe (7-10) Ondansetron HCl (Ondansetron 4 Mg/2 Ml Inj) 4 mg IV Q8H PRN PRN Reason: Nausea And Vomiting Sodium Chloride (Sodium Chloride 0.9% 10 Ml Flush Syringe) 10 ml IV BID KHARI Sodium Chloride (Sodium Chloride 0.9% 10 Ml Flush Syringe) 10 ml IV PRN PRN PRN Reason: LINE FLUSH Review of Systems All systems: negative Exam - Vital Signs Vital signs: Vital Signs Pulse Ox 95 12/02/21 00:46 - General Appearance General appearance: well-developed, well-nourished, frail Respiratory: Other (+rhonchi) Heart: regular, S1S2 Gastrointestinal: Absent: tenderness, distended Results - Lab Results 12/02/21 01:24 12/02/21 10:47 Most recent lab results Calcium 9.3 mg/dL (8.4-10.2) 12/02/21 01:24 Assessment and Plan Impression: * Acute kidney injury secondary to ATN * Metabolic acidosis, severe * Lactic acidosis * Acute hypoxic respiratory failure * Sepsis - ?bilateral PNA * Elevated troponin Plan: * Renal function is guarded. Will attempt conservative management * Adjust IVF - will discontinue NS w/ 50meq bicarb. Start D5W w/ 150meq bicarb for metabolic acidosis * Obtain renal ultrasound, urine studies * Abx per primary team * Dose medications for renal * Avoid potential nephrotoxins * Strict I/O
[2021-12-02] MEDS ORDERED: LEVALBUTEROL 0.63 MG/3 ML NEBU IH PRN (10:00)
[2021-12-02] MEDS ORDERED: FUROSEMIDE 40 MG/4 ML INJ ONE (10:40)
[2021-12-02] MEDS ORDERED: IPRATROPIUM/ALBUTEROL SULFATE 3 ML AMPUL.NEB IH ONE ×2 (10:50→13:43)
[2021-12-02 11:37] LABS: Calcium 9.1 mg/dL (8.4-10.2)
[2021-12-02] MEDS: ALPRAZolam 0.5 MG TAB PO PRN (11:38)
[2021-12-02] MEDS: SODIUM BICARBONATE 150 MEQ in DEXTROSE 5% IN WATER 1,000 ML IV SCH ×2 (12:04→20:42)
[2021-12-02] MEDS ORDERED: VANCOMYCIN 750 MG in SODIUM CHLORIDE 0.9% 500 ML 500 ML IV ONE (13:05)
--- NOTE | 2021-12-02 13:07 | Consultation ---
History of Present Illness - Reason for Consult Consult date: 12/02/21 Sepsis, PUI Requesting physician: LUCIO GODOY - History of Present Illness The patient is a 86-year-old female with hypertension, diabetes, peripheral vascular disease, prior right AKA admitted with shortness of breath. Upon evaluation in the ED, she was afebrile, chest x-ray showed bilateral airspace opacities concerning for pneumonia versus pulmonary edema. Labs revealed leukocytosis, lactic acidosis, acute renal failure. She was started on empiric antibiotics. Infectious diseases was consulted for sepsis. Patient has been restless, agitated, on oxygen. Poor historian. Review of Systems: Limited due to AMS Past History Past Medical History: diabetes, hypertension, hyperlipidemia Past Surgical History: mastectomy (Left) Social history: smoking (Former smoker) Family history: no significant family history (limited due to confusion on admission) Medications and Allergies Allergies Allergy/AdvReac Type Severity Reaction Status Date / Time No Known Allergies Allergy Verified 04/05/19 15:30 Home Medications Medication Instructions Recorded Confirmed Last Taken Type Gabapentin 300 mg PO BID 04/05/19 04/06/19 Unknown History Metoprolol [Lopressor TAB] 25 mg PO QDAY 04/05/19 04/06/19 Unknown History Simvastatin 40 mg PO QHS 04/05/19 04/06/19 Unknown History Vitamin D2 50,000 units PO QWEEK 04/05/19 04/06/19 Unknown History amLODIPine 10 mg PO DAILY 04/05/19 04/05/19 Unknown History metFORMIN [Glucophage] 500 mg PO QHS 04/05/19 04/06/19 Unknown History raNITIdine HCl [Zantac] 300 mg PO QDAY 04/05/19 04/06/19 Unknown History Aspirin [Aspirin BABY CHEW TAB] 81 mg PO QDAY #30 tab.chew 04/12/19 Unknown Rx Clopidogrel [Plavix] 75 mg PO QDAY #30 tablet 04/12/19 Unknown Rx cilostazoL [Pletal] 50 mg PO BID #30 tablet 04/12/19 Unknown Rx oxyCODONE /ACETAMINOPHEN [Percocet 2 tab PO Q6H PRN #20 tablet 04/12/19 Unknown Rx 5/325 mg] Active Meds: Active Medications Acetaminophen (Acetaminophen 325 Mg Tab) 650 mg PO Q4H PRN PRN Reason: Pain MILD(1-3)/Fever >100.5/HYLTON Alprazolam (Alprazolam 0.5 Mg Tab) 0.5 mg PO Q8H PRN PRN Reason: Anxiety Last Admin: 12/02/21 11:38 Dose: 0.5 mg Dextrose (Dextrose 10% *Hypoglycemia) 0 ml IV PRN PRN; Protocol PRN Reason: Hypoglycemia Heparin Sodium (Porcine) (Heparin 5,000 Unit/1 Ml Vial) 5,000 unit SUB-Q Q8HR KHARI Sodium Bicarbonate 150 meq/ (Dextrose) 1,150 mls @ 100 mls/hr IV DIRECT KHARI Last Admin: 12/02/21 12:04 Dose: 100 mls/hr Insulin Human Lispro (Insulin Lispro 100 Unit/Ml) 0 unit SUB-Q ACHS KHARI; Protoc ol Last Admin: 12/02/21 12:04 Dose: 2 unit Levalbuterol HCl (Levalbuterol 0.63 Mg/3 Ml Nebu) 0.63 mg IH Q8HRT PRN PRN Reason: Shortness Of Breath Magnesium Hydroxide (Magnesium Hydroxide (Mom) Oral Liqd Udc) 30 ml PO Q4H PRN PRN Reason: Constipation Morphine Sulfate (Morphine 2 Mg/1 Ml Inj) 2 mg IV Q4H PRN PRN Reason: Pain, Moderate (4-6) Morphine Sulfate (Morphine 4 Mg/1 Ml Inj) 4 mg IV Q4H PRN PRN Reason: Pain , Severe (7-10) Ondansetron HCl (Ondansetron 4 Mg/2 Ml Inj) 4 mg IV Q8H PRN PRN Reason: Nausea And Vomiting Sodium Chloride (Sodium Chloride 0.9% 10 Ml Flush Syringe) 10 ml IV BID KHARI Sodium Chloride (Sodium Chloride 0.9% 10 Ml Flush Syringe) 10 ml IV PRN PRN PRN Reason: LINE FLUSH Physical Examination - Physical Exam Narrative exam: Physical Exam: Constitutional: Confused Head, Ears, Nose: Normocephalic, atraumatic. External ears, nose normal Eyes: Conjunctivae/corneas clear. No icterus. No ptosis. Neck: Supple, no meningeal signs Oral: Limited Cardiovascular: S1, S2 + Respiratory: Good air entry, clear to auscultation bilaterally GI: Soft, non-tender; bowel sounds normal. No peritoneal signs Musculoskeletal: No pedal edema, no cyanosis. R AKA well healed Skin: No rash or abscess Hem/Lymphatic: No palpable cervical or supraclavicular nodes. No lymphangitis Psych: Agitated at times Neurological: Confused - Constitutional Vitals: Vital Signs Temp Pulse Resp BP Pulse Ox 97.1 F L 126 H 30 H 153/81 94 12/02/21 10:51 12/02/21 10:51 12/02/21 10:51 12/02/21 10:51 12/02/21 09:16 Temperature -Last 24 Hours Temperature 97.1 F Temperature 95.8 F Temperature 94.3 F Results - Labs CBC & Chem 7: 12/02/21 01:24 12/02/21 10:47 Labs: Abnormal lab results 12/02/21 12/02/21 12/02/21 Range/Units 01:24 01:24 01:24 WBC 15.4 H (4.5-11.0) K/mm3 RDW 15.8 H (13.2-15.2) % Lymph % (Auto) 6.3 L (13.4-35.0) % [place] % (Auto) 11.7 H (0.0-7.3) % Lymph # (Auto) 1.0 L (1.2-5.4) K/mm3 [place] # (Auto) 1.8 H (0.0-0.8) K/mm3 Seg Neutrophils % 81.8 H (40.0-70.0) % Seg Neutrophils # 12.6 H (1.8-7.7) K/mm3 PT 15.9 H (12.2-14.9) Sec. INR 1.15 H (0.87-1.13) D-Dimer (0-234) ng/mlDDU VBG pH (7.320-7.420) Potassium 3.5 L (3.6-5.0) mmol/L Carbon Dioxide 4 L* (22-30) mmol/L BUN 43 H (7-17) mg/dL Creatinine 5.1 H (0.6-1.2) mg/dL Glucose 239 H (65-100) mg/dL POC Glucose (70-105) mg/dL Lactic Acid (0.7-2.0) mmol/L AST 86 H (5-40) units/L ALT 69 H (7-56) units/L Lactate Dehydrogenase (91-180) units/L Total Creatine Kinase 254 H (30-135) units/L CK-MB (CK-2) 20.2 H (0.0-4.0) ng/mL CK-MB (CK-2) Rel Index 7.9 H (0-4) Troponin T (0.00-0.029) ng/mL C-Reactive Protein (0.00-1.30) mg/dL NT-Pro-B Natriuret Pep (0-900) pg/mL HDL Cholesterol (40-59) mg/dL 12/02/21 12/02/21 12/02/21 Range/Units 01:24 01:24 01:24 WBC (4.5-11.0) K/mm3 RDW (13.2-15.2) % Lymph % (Auto) (13.4-35.0) % [place] % (Auto) (0.0-7.3) % Lymph # (Auto) (1.2-5.4) K/mm3 [place] # (Auto) (0.0-0.8) K/mm3 Seg Neutrophils % (40.0-70.0) % Seg Neutrophils # (1.8-7.7) K/mm3 PT (12.2-14.9) Sec. INR (0.87-1.13) D-Dimer (0-234) ng/mlDDU VBG pH 7.167 L* (7.320-7.420) Potassium (3.6-5.0) mmol/L Carbon Dioxide (22-30) mmol/L BUN (7-17) mg/dL Creatinine (0.6-1.2) mg/dL Glucose (65-100) mg/dL POC Glucose (70-105) mg/dL Lactic Acid 15.70 H* (0.7-2.0) mmol/L AST (5-40) units/L ALT (7-56) units/L Lactate Dehydrogenase (91-180) units/L Total Creatine Kinase (30-135) units/L CK-MB (CK-2) (0.0-4.0) ng/mL CK-MB (CK-2) Rel Index (0-4) Troponin T 2.600 H* (0.00-0.029) ng/mL C-Reactive Protein (0.00-1.30) mg/dL NT-Pro-B Natriuret Pep > 3500 H (0-900) pg/mL HDL Cholesterol 74 H (40-59) mg/dL 12/02/21 12/02/21 12/02/21 Range/Units 04:18 04:18 04:18 WBC (4.5-11.0) K/mm3 RDW (13.2-15.2) % Lymph % (Auto) (13.4-35.0) % [place] % (Auto) (0.0-7.3) % Lymph # (Auto) (1.2-5.4) K/mm3 [place] # (Auto) (0.0-0.8) K/mm3 Seg Neutrophils % (40.0-70.0) % Seg Neutrophils # (1.8-7.7) K/mm3 PT (12.2-14.9) Sec. INR (0.87-1.13) D-Dimer 1461.68 H (0-234) ng/mlDDU VBG pH (7.320-7.420) Potassium (3.6-5.0) mmol/L Carbon Dioxide (22-30) mmol/L BUN (7-17) mg/dL Creatinine (0.6-1.2) mg/dL Glucose 255 H (65-100) mg/dL POC Glucose (70-105) mg/dL Lactic Acid 15.40 H* (0.7-2.0) mmol/L AST (5-40) units/L ALT (7-56) units/L Lactate Dehydrogenase 958 H (91-180) units/L Total Creatine Kinase (30-135) units/L CK-MB (CK-2) (0.0-4.0) ng/mL CK-MB (CK-2) Rel Index (0-4) Troponin T (0.00-0.029) ng/mL C-Reactive Protein 6.60 H (0.00-1.30) mg/dL NT-Pro-B Natriuret Pep (0-900) pg/mL HDL Cholesterol (40-59) mg/dL 12/02/21 12/02/21 Range/Units 10:47 10:53 WBC (4.5-11.0) K/mm3 RDW (13.2-15.2) % Lymph % (Auto) (13.4-35.0) % [place] % (Auto) (0.0-7.3) % Lymph # (Auto) (1.2-5.4) K/mm3 [place] # (Auto) (0.0-0.8) K/mm3 Seg Neutrophils % (40.0-70.0) % Seg Neutrophils # (1.8-7.7) K/mm3 PT (12.2-14.9) Sec. INR (0.87-1.13) D-Dimer (0-234) ng/mlDDU VBG pH (7.320-7.420) Potassium (3.6-5.0) mmol/L Carbon Dioxide 7 L* (22-30) mmol/L BUN 51 H (7-17) mg/dL Creatinine 5.9 H (0.6-1.2) mg/dL Glucose 224 H (65-100) mg/dL POC Glucose 194 H (70-105) mg/dL Lactic Acid (0.7-2.0) mmol/L AST (5-40) units/L ALT (7-56) units/L Lactate Dehydrogenase (91-180) units/L Total Creatine Kinase (30-135) units/L CK-MB (CK-2) (0.0-4.0) ng/mL CK-MB (CK-2) Rel Index (0-4) Troponin T (0.00-0.029) ng/mL C-Reactive Protein (0.00-1.30) mg/dL NT-Pro-B Natriuret Pep (0-900) pg/mL HDL Cholesterol (40-59) mg/dL - Imaging and Cardiology Chest x-ray: report reviewed, image reviewed (b/l airspace disease) Assessment and Plan Cultures: 12/02/2021 blood culture: In process A/P: 86-year-old female with hypertension, diabetes, peripheral vascular disease, prior right AKA admitted with shortness of breath: #Severe sepsis, secondary to pneumonia #Severe metabolic acidosis, lactic acidosis #Acute renal failure: Renally adjust antibiotics #Acute encephalopathy: Likely metabolic. Recs: Follow-up COVID-19 PCR, suspicion seems low at this time Empiric renally adjusted cefepime, vancomycin f/u cultures Elizabeth Lane MD, FACP, [facility] ([facility] O: [phone] F: [phone]
[2021-12-02] MEDS ORDERED: LEVALBUTEROL 1.25 MG/3 ML NEB IH ONE (13:42)
[2021-12-02] MEDS ORDERED: VANCOMYCIN PHARMACY TO DOSE IV SCH (14:00)
--- NOTE | 2021-12-02 14:11 | Electrocardiograph Report ---
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
[2021-12-02] MEDS: HEPARIN 5,000 UNIT/1 ML VIAL SUB-Q SCH ×2 (14:16→21:21)
[2021-12-02] MEDS ORDERED: LORazepam 2 MG/ML VIAL IV PRN (14:22)
[2021-12-02] MEDS ORDERED: VANCOMYCIN 1,250 MG in SODIUM CHLORIDE 0.9% 250ML 250 ML IV ONE (14:30)
--- NOTE | 2021-12-02 14:49 | Event Note ---
Date: 12/02/21 Discussed clinical updates, patient condition, prognosis and current care plan with next of kin and medical decision maker Prateek Lanrdy ([phone]) via phone. Patient reports having legal documents to support him being the medical decision maker. Patient was living in a [place] [facility] and they were only aware of dementia and heart issues. Family would like to proceed with full code at this time. Nephrology, cardiology, and infectious disease consulted, assistance greatly appreciated. We will continue with current plan with the following adjustments: #Sepsis -Continue vancomycin and cefepime -Blood cultures collected; Covid 19 PCR negative -ID following #Pulmonary edema -Serial chest x-ray -Status post Lasix x1 -Continue supplemental O2, BiPAP at night -As needed Xopenex #Metabolic acidosis #Lactic acidosis #Acute kidney injury -No history of CKD per family -Avoid nephrotoxic agents, renally dose medications -Bicarb drip -Every 6 BMPs -Monitor ins and out -Renal ultrasound and noncontrast CT abdomen/pelvis ordered -Nephrology following #Elevated BNP #Elevated troponin -BNP >2000 ; troponin 2.000 -could be secondary to renal failure -no recent TTE on file, will order -Cardiology consulted #Elevated D-dimer -VQ scan ordered #Advance care planning -Disease education, care plan, diagnosis, prognosis discussed with next of kin. Family understands and acknowledges current plan. -Time: +30 minutes
[2021-12-02] MEDS: METOPROLOL TARTRATE 25 MG TAB PO SCH (15:18)
[2021-12-02] MEDS ORDERED: fentaNYL 100 MCG/2 ML INJ ONE ×2 (17:21→17:29)
[2021-12-02] MEDS ORDERED: ETOMIDATE 20 MG/10 ML INJ IV ONE ×2 (17:21→17:42)
[2021-12-02] MEDS ORDERED: SODIUM CHLORIDE 0.9% 1000 ML 1,000 ML ONE (17:21)
[2021-12-02] MEDS ORDERED: MIDAZOLAM 2 MG/2 ML INJ ONE ×2 (17:22→17:29)
--- NOTE | 2021-12-02 17:26 | Cat Scan Report ---
CT ABDOMEN AND PELVIS WITHOUT IV CONTRAST INDICATION: elevated lactate. COMPARISON: None available. TECHNIQUE: All CT scans at this facility use dose modulation, automated exposure control, iterative reconstructi on or weight based dosing, when appropriate, to reduce radiation dose to as low as reasonably achieva ble. FINDINGS: Lung Bases: There are small effusions. Dependent consolidative changes greater on the left may be due at least in part to atelectasis. Skeletal System: No acute abnormality. ABDOMEN: Liver: No significant abnormality. Gallbladder: No significant abnormality. Bile Ducts: No significant abnormality. Adrenals: There is mild diffuse thickening of both adrenal glands. Right Kidney: No significant abnormality. Left Kidney: No significant abnormality. Pancreas: No significant abnormality. Spleen: No significant abnormality. Upper GI tract: No significant abnormality. Lymph Nodes: No significant adenopathy. Aorta: Advanced circumferential atherosclerotic calcification is seen throughout the abdominal aorta and iliac arterial trees bilaterally. There is no abdominal aortic aneurysm. Additional Findings: No significant abnormality. PELVIS: Colon: No acute abnormality. Diverticulosis is noted. Urinary Bladder and Distal Ureters: No significant abnormality. Appendix: Not visualized. Lymph Nodes: No significant adenopathy. Additional Findings: None. IMPRESSION: 1. Within the limitations of non contrast technique, no acute process in the abdomen or pelvis. 2. Incidental findings, as above. Signer Name: Fernando Sultana MD Signed: 12/02/2021 5:21 PM Workstation Name: [id number]
[2021-12-02] MEDS ORDERED: MINERAL OIL/PETROLATUM, WHITE OPHTH OINT 3.5 GM OU PRN (17:32)
[2021-12-02] MEDS ORDERED: LIP THERAPY VASELINE TP PRN (17:32)
--- NOTE | 2021-12-02 17:38 | Procedure Note ---
Date of procedure: 12/02/21 Pre-op diagnosis: resp failure, aspiration PNA, pulmonary edema Post-op diagnosis: same Procedure: Endotracheal incubation IV Etomidate, midazolam, fentanyl given Under direct visualization with glidescope, vocal chords were seen 7.5cm ETT placed. Copious frothy pink secretions noted Secured at 23cm at the lip Equal BS bilaterally, good color change Equal Chest rise CXR ordered Surgeon: DEBBIE FONSECA Estimated blood loss: none Pathology: none Condition: critical Disposition: ICU
[2021-12-02] MEDS ORDERED: fentaNYL 100 MCG/2 ML INJ IV ONE (17:41)
[2021-12-02] MEDS ORDERED: MIDAZOLAM 2 MG/2 ML INJ IV ONE (17:42)
--- NOTE | 2021-12-02 19:46 | XRay Report ---
XR abdomen 1V ap INDICATION: ng tube placement. COMPARISON: None available. FINDINGS: The tip of the esophagogastric tube projects over the body of the stomach. Signer Name: Mamadou Whittaker MD Signed: 12/02/2021 7:42 PM Workstation Name: [id number]
--- NOTE | 2021-12-02 19:46 | XRay Report ---
CHEST 1 VIEW 12/02/2021 6:40 PM INDICATION / CLINICAL INFORMATION: central line placement. COMPARISON: Exam done earlier today FINDINGS: SUPPORT DEVICES: The tip of ET tube projects into the right main bronchus. Right IJ central venous ca theter appears well positioned. HEART / MEDIASTINUM: Stable. LUNGS / PLEURA: Stable bilateral perihilar opacities. No pneumothorax. ADDITIONAL FINDINGS: No significant additional findings. IMPRESSION: 1. ET tube tip projects into the right main bronchus. Retraction by at least 4 cm recommended. Signer Name: Mamadou Whittaker MD Signed: 12/02/2021 7:42 PM Workstation Name: [id number]
--- NOTE | 2021-12-02 19:49 | XRay Report ---
XR abdomen 1V ap INDICATION: NGT placement. COMPARISON: None available. FINDINGS: No NG tube is identified on this exam. Signer Name: Mamadou Whittaker MD Signed: 12/02/2021 7:44 PM Workstation Name: [id number]
--- NOTE | 2021-12-02 19:49 | XRay Report ---
CHEST 1 VIEW 12/02/2021 6:41 PM INDICATION / CLINICAL INFORMATION: ETT placement. COMPARISON: Exam earlier today FINDINGS: SUPPORT DEVICES: ET tube tip projects over the right main bronchus. HEART / MEDIASTINUM: Stable. LUNGS / PLEURA: Stable bilateral perihilar opacities. No pneumothorax. ADDITIONAL FINDINGS: No significant additional findings. IMPRESSION: 1. ET tube tip projects over the right main bronchus. Retraction by at least 4 cm recommended. Signer Name: Mamadou Whittaker MD Signed: 12/02/2021 7:45 PM Workstation Name: [id number]
[2021-12-02 20:51] LABS: ABG Base Excess -8.7 mmol/L (-2.0-3.0); ABG HCO3 15.4 mmol/L (20.0-26.0); ABG Methemoglobin 0.5 % (0.0-1.5); ABG Oxygen Saturation 98.9 % (95.0-99.0); ABG PCO2 28.2 mm Hg; ABG PH 7.354 pH Units (7.350-7.450); ABG PO2 156.2 mm Hg (80.0-90.0)
--- NOTE | 2021-12-02 20:57 | Procedure Note ---
Date of procedure: 12/02/21 Pre-op diagnosis: Acute respiratory failure Post-op diagnosis: same Procedure: Right internal jugular vein triple-lumen catheter under ultrasound guidance. The patient was prepped and draped in the usual sterile fashion. With the nurse at bedside a timeout was taken to verify the correct patient, procedure and correct operative site. Local anesthesia obtained with 1% lidocaine. The Seldinger technique was utilized under ultrasound guidance to access the right internal jugular vein without difficulty. A seeker needle was advanced to the right internal jugular vein under ultrasound guidance difficulty. A guidewire was then advanced through the seeker needle into the right internal jugular vein and the seeker needle subsequently removed over the guidewire. A scalpel was used to incise the skin. A dilator was then placed over the guidewire to the right internal jugular vein and subsequently removed. A preflush triple-lumen catheter was then advanced his right internal jugular vein without difficulty and the guidewire subsequently removed. All 3 ports flush and draw with ease. A Biopatch was placed at the insertion site. 3-0 nylon suture was utilized to secure the central line in place. Postoperative chest x-ray revealed no pneumo thorax and triple-lumen catheter in good position. Estimated blood loss minimal. Specimens none. Anesthesia: local Surgeon: EBENEZER LUO Estimated blood loss: minimal Pathology: none Condition: critical Disposition: ICU
--- NOTE | 2021-12-02 21:02 | Event Note ---
A code met was called. I presented to the bedside and the patient was found to have developed acute hypoxemic respiratory failure and was found to have a pulse oximetry in the 70s. Patient deemed unable to protect her airway. Patient was subsequently intubated using a glide scope. A 7.5 cm ET tube was advanced into the trachea to 24 cm at the lip. Postoperative chest x-ray revealed ET tube in good position. 90 minutes bedside critical care time dedicated to patient care. Patient family notified. Advanced care planning conducted. +30 minutes.
[2021-12-02] MEDS: FAMOTIDINE 20 MG/2 ML INJ IV SCH (21:21)
[2021-12-02] MEDS: SENNOSIDES/DOCUSATE SODIUM 8.6/50 MG TAB FEEDTUBE SCH (21:21)
[2021-12-02] MEDS ORDERED: NON-FORMULARY EACH (Simvastatin [Simvastatin] 40 MG Tablet) PO SCH (22:00)
[2021-12-03] MEDS: INSULIN LISPRO 100 UNIT/ML SUB-Q SCH ×3 (00:45→18:25)
[2021-12-03 00:46] LABS: Calcium 8.3 mg/dL (8.4-10.2)
[2021-12-03] MEDS: PRAVASTATIN 80 MG TAB PO SCH ×2 (01:05→21:58)
[2021-12-03] MEDS: CILOSTAZOL 100 MG TAB PO SCH ×3 (01:05→21:58)
[2021-12-03 01:46] LABS: Bacteria,Urine 1+ /HPF (Negative); Bilirubin,Urine NEG (Negative); Blood,Urine MOD (Negative); Color,Urine Yellow (Yellow); Mucus,Urine FEW /HPF; Urobilinogen,Urine < 2.0 mg/dL (<2.0)
[2021-12-03 01:51] LABS: Protein,Urine >500 mg/dL (Negative)
[2021-12-03 01:54] LABS: Creatinine,Urine 24.4 mg/dL (0.1-20.0)
[2021-12-03 02:05] LABS: Protein/Creatinine Ratio,Urine 4.55
[2021-12-03] MEDS ORDERED: cefTRIAXone/NS 2 GM/100 ML 2 GM/100 ML BAG IV SCH (03:00)
[2021-12-03] MEDS ORDERED: AZITHROMYCIN/NS 500 MG/250 ML 500 MG/250 ML BAG IV SCH (05:00)
[2021-12-03] MEDS: HEPARIN 5,000 UNIT/1 ML VIAL SUB-Q SCH ×3 (06:07→21:58)
[2021-12-03 06:21] LABS: Calcium 7.9 mg/dL (8.4-10.2)
[2021-12-03 06:33] LABS: Hematocrit 35.7 % (30.3-42.9); Hemoglobin 11.7 gm/dl (10.1-14.3); Mean Corpuscular HGB Conc 33 % (30-34); Mean Corpuscular Volume 87 fl (79-97); Platelet Count 248 K/mm3 (140-440); Red Blood Count 4.11 M/mm3 (3.65-5.03); Red Cell Distribution Width 15.4 % (13.2-15.2)
[2021-12-03 07:40] LABS: Band Neutrophils # (Manual) 1.1 K/mm3; Basophils % (Manual) 0 % (0.0-1.8); Eosinophils % (Manual) 0 % (0.0-4.3); Myelocytes # (Manual) 0.1 K/mm3; Total Cells Counted 100
[2021-12-03 07:41] LABS: Burr Cells 1+
[2021-12-03 07:42] LABS: Large Platelets Few; Platelet Clumps Few; Platelet Estimate Consistent w Auto
[2021-12-03] MEDS: SODIUM BICARBONATE 150 MEQ in DEXTROSE 5% IN WATER 1,000 ML IV SCH ×2 (08:22→19:31)
--- NOTE | 2021-12-03 08:27 | XRay Report ---
CHEST 1 VIEW 12/03/2021 7:18 AM INDICATION / CLINICAL INFORMATION: follow up respiratory failure. COMPARISON: Previous day. FINDINGS: SUPPORT DEVICES: Unchanged. HEART / MEDIASTINUM: No significant abnormality. LUNGS / PLEURA: Persistent bilateral opacity with overall mild worsening. Decreasing basilar aeration . Left basilar effusion/volume loss remains. No pneumothorax. ADDITIONAL FINDINGS: No significant additional findings. IMPRESSION: Mild interval worsening. Signer Name: Bobby Dominguez MD Signed: 12/03/2021 8:23 AM Workstation Name: [id number]
[2021-12-03 09:03] LABS: ABG Base Excess 0.6 mmol/L (-2.0-3.0); ABG HCO3 22.2 mmol/L (20.0-26.0); ABG Methemoglobin 0.7 % (0.0-1.5); ABG Oxygen Saturation 98.6 % (95.0-99.0); ABG PH 7.533 pH Units (7.350-7.450); ABG PO2 120.9 mm Hg (80.0-90.0)
--- NOTE | 2021-12-03 10:30 | Consultation ---
History of Present Illness Consult date: 12/03/21 Consult reason: other (NSTEMI) History of present illness: The patient is an 86-year-old woman with multiple comorbidities. She has advanced dementia and lives in a [facility]. She has coronary artery disease, on medical therapy and peripheral arterial disease status post right above-knee amputation. She has paroxysmal atrial fibrillation, documented in the hospital visit in 2019. Anticoagulation was stopped due to high bleeding and fall risk. Other comorbidities include chronic hypertension and diabetes. She was brought to the hospital 2 days ago from the [facility] with acute onset respiratory distress. Initial chest x-ray in the emergency room demonstrated bilateral pulmonary edema. EKG was also abnormal with inferolateral [address] depression consistent with acute inferolateral ischemia. She was managed by the internal medicine service, but during her hospital course over the past 48 hours, her respiratory status deteriorated, and yesterday she was intubated and is currently on the ventilator. A follow-up chest x-ray today shows the development of right upper lobe consolidation suggestive of an intercurrent acute pneumonia. Additional pertinent findings include acute renal failure with a creatinine of 6.2. The creatinine was 0.6 on her prior admission to the hospital 2 years ago. In this milieu, there was an increase in the troponin level measured at 2.5. Past History Past Medical History: CAD, diabetes, hypertension, hyperlipidemia, PVD Past Surgical History: mastectomy (Left) Social history: smoking (Former smoker) Family history: no significant family history Medications and Allergies Allergies Allergy/AdvReac Type Severity Reaction Status Date / Time No Known Allergies Allergy Verified 04/05/19 15:30 Home Medications Medication Instructions Recorded Confirmed Last Taken Type Gabapentin 300 mg PO BID 04/05/19 04/06/19 Unknown History Metoprolol [Lopressor TAB] 25 mg PO QDAY 04/05/19 04/06/19 Unknown History Simvastatin 40 mg PO QHS 04/05/19 04/06/19 Unknown History Vitamin D2 50,000 units PO QWEEK 04/05/19 04/06/19 Unknown History amLODIPine 10 mg PO DAILY 04/05/19 04/05/19 Unknown History metFORMIN [Glucophage] 500 mg PO QHS 04/05/19 04/06/19 Unknown History raNITIdine HCl [Zantac] 300 mg PO QDAY 04/05/19 04/06/19 Unknown History Aspirin [Aspirin BABY CHEW TAB] 81 mg PO QDAY #30 tab.chew 04/12/19 Unknown Rx Clopidogrel [Plavix] 75 mg PO QDAY #30 tablet 04/12/19 Unknown Rx cilostazoL [Pletal] 50 mg PO BID #30 tablet 04/12/19 Unknown Rx oxyCODONE /ACETAMINOPHEN [Percocet 2 tab PO Q6H PRN #20 tablet 04/12/19 Unknown Rx 5/325 mg] Active Meds: Active Medications Acetaminophen (Acetaminophen 325 Mg Tab) 650 mg PO Q4H PRN PRN Reason: Pain MILD(1-3)/Fever >100.5/HYLTON Alprazolam (Alprazolam 0.5 Mg Tab) 0.5 mg PO Q8H PRN PRN Reason: Anxiety Last Admin: 12/02/21 11:38 Dose: 0.5 mg Amlodipine Besylate (Amlodipine 10 Mg Tab) 10 mg PO DAILY KHARI Aspirin (Aspirin 81 Mg Tab Chew) 81 mg PO QDAY KHARI Cilostazol (Cilostazol 100 Mg Tab) 50 mg PO BID [facility] Last Admin: 12/03/21 01:05 Dose: 50 mg Clopidogrel Bisulfate (Clopidogrel 75 Mg Tab) 75 mg PO QDAY [facility] Dextrose (Dextrose 10% *Hypoglycemia) 0 ml IV PRN PRN; Protocol PRN Reason: Hypoglycemia Famotidine (Famotidine 20 Mg/2 Ml Inj) 20 mg IV BID [facility] Last Admin: 12/02/21 21:21 Dose: 20 mg Heparin Sodium (Porcine) (Heparin 5,000 Unit/1 Ml Vial) 5,000 unit SUB-Q Q8HR [facility] Last Admin: 12/03/21 06:07 Dose: 5,000 unit Hydrophilic Ointment (Lip Therapy Vaseline) 1 applic TP Q2HR PRN PRN Reason: Dry Lips Sodium Bicarbonate 150 meq/ (Dextrose) 1,150 mls @ 100 mls/hr IV DIRECT [facility] Last Admin: 12/03/21 08:22 Dose: 100 mls/hr Cefepime HCl (Cefepime/Ns 1 Gm/100 Ml) 1 gm in 100 mls @ 200 mls/hr IV QPM [facility]; Protocol Propofol (Diprivan 10 Mg/Ml) 1,000 mg in 100 mls @ 1.839 mls/hr IV TITR KHARI; Protocol Last Admin: 12/03/21 06:08 Dose: 10 mcg/kg/min, 3.678 mls/hr Insulin Human Lispro (Insulin Lispro 100 Unit/Ml) 0 unit SUB-Q Q6HR [facility]; Protocol Last Admin: 12/03/21 06:22 Dose: Not Given Levalbuterol HCl (Levalbuterol 0.63 Mg/3 Ml Nebu) 0.63 mg IH Q8HRT PRN PRN Reason: Shortness Of Breath Lorazepam (Lorazepam 2 Mg/Ml Vial) 1 mg IV Q6H PRN PRN Reason: Agitation Last Admin: 12/02/21 15:18 Dose: 1 mg Magnesium Hydroxide (Magnesium Hydroxide (Mom) Oral Liqd Udc) 30 ml PO Q4H PRN PRN Reason: Constipation Metoprolol Tartrate (Metoprolol Tartrate 25 Mg Tab) 25 mg PO QDAY [facility] Last Admin: 12/02/21 15:18 Dose: 25 mg Morphine Sulfate (Morphine 2 Mg/1 Ml Inj) 2 mg IV Q4H PRN PRN Reason: Pain, Moderate (4-6) Morphine Sulfate (Morphine 4 Mg/1 Ml Inj) 4 mg IV Q4H PRN PRN Reason: Pain , Severe (7-10) Multi-Ingred Cream/Lotion/Oil/Oint (Mineral Oil/Petrolatum, White Ophth Oint 3.5 Gm) 1 applic OU Q4HR PRN PRN Reason: Dry Eye(s) Ondansetron HCl (Ondansetron 4 Mg/2 Ml Inj) 4 mg IV Q8H PRN PRN Reason: Nausea And Vomiting Pravastatin Sodium (Pravastatin 80 Mg Tab) 80 mg PO QHS [facility] Last Admin: 12/03/21 01:05 Dose: 80 mg Senna/Docusate Sodium (Sennosides/Docusate Sodium 8.6/50 Mg Tab) 1 tab FEEDTUBE BID [facility] Last Admin: 12/02/21 21:21 Dose: 1 tab Sodium Chloride (Sodium Chloride 0.9% 10 Ml Flush Syringe) 10 ml IV BID [facility] Last Admin: 12/02/21 21:22 Dose: 10 ml Sodium Chloride (Sodium Chloride 0.9% 10 Ml Flush Syringe) 10 ml IV PRN PRN PRN Reason: LINE FLUSH Review of Systems ROS unobtainable: due to endotracheal tube, due to mental status Physical Examination Vital Signs Pulse Ox 95 02/15/22 00:46 General appearance: cachectic, other (Frail, cachectic, elderly female, intubated, on the vent) HEENT: Positive: Other (Pupils for) Neck: Positive: neck supple Cardiac: Positive: Reg Rate and Rhythm Lungs: Positive: Decreased Breath Sounds Neuro: Positive: Other (Sedated, intubated, on the vent) Abdomen: Positive: Soft Female genitourinary: deferred Skin: Positive: Clear Extremities: Absent: edema Results 12/03/21 04:00 12/03/21 04:00 CBC 12/03/21 Range/Units 04:00 WBC 6.1 (4.5-11.0) K/mm3 RBC 4.11 (3.65-5.03) M/mm3 Hgb 11.7 (10.1-14.3) gm/dl Hct 35.7 (30.3-42.9) % Plt Count 248 (140-440) K/mm3 Comprehensive Metabolic Panel 12/02/21 12/02/21 12/03/21 Range/Units 10:47 22:56 04:00 Sodium 145 147 H 145 (137-145) mmol/L Potassium 4.0 3.4 L 3.5 L (3.6-5.0) mmol/L Chloride 98.4 104.0 100.8 (98-107) mmol/L Carbon Dioxide 7 L* 18 L D 21 L (22-30) mmol/L BUN 51 H 59 H 63 H (7-17) mg/dL Creatinine 5.9 H 6.2 H 6.3 H (0.6-1.2) mg/dL Glucose 224 H 150 H 158 H (65-100) mg/dL Calcium 9.1 8.3 L 7.9 L (8.4-10.2) mg/dL EKG interpretations - Telemetry EKG Rhythm: Sinus Rhythm (With [address] depression, consistent with acute ischemia) Assessment and Plan - Patient Problems (1) Non-ST elevation myocardial infarction (NSTEMI) Current Visit: Yes Status: Acute Plan to address problem: Patient presented to the hospital with acute pulmonary edema and ECG evidence of acute inferior lateral ischemia. Current hospital course appears consistent with the development of a right upper lobe pneumonia, respiratory failure, currently on the ventilator. Due to the patient's advanced age, frailty, multiple comorbidities, including advanced dementia and end-stage renal failure, she is not a candidate for aggressive and invasive cardiac evaluation and therapies. We will continue supportive management with medical therapy for coronary artery disease and heart failure as tolerated. An echocardiogram will be ordered for left ventricular function assessment, to appropriately tailor further medical therapy.
--- NOTE | 2021-12-03 11:34 | Progress Note ---
<KELLEY LIZ - Last Filed: 12/03/21 16:14> Assessment and Plan Assessment and plan: This is a 86-year-old AA female with known past medical history of hypertension, diabetes mellitus, PVD, and right AKA initially admitted to the floor for sepsis, ARF, and pneumonia versus pulmonary edema. Patient was a code met on 11/18 due to acute hypoxemic respiratory failure requiring intubation and ventilatory support. Hospital Course to Date: 12/03: Patient remains intubated and sedated. This am ABG noted, continue to wean Fio2 as tolerated. Patient's renal function continue to worsen, patient cur rently on bcab gtt per Nephrology. Per Nephro plan for possible discussion with family, patient might require HD. Acidosis is improving continue bcarb and IV abx per ID, trend lactic acid. Assessment and Plan #Acute Hypoxemic Respiratory Failure #Pulmonary Edema Vs #Pneumonia - Code met on 12/02 was intubated - Vent setting:A/C-60%10,20 PS-20 - This am ABG noted - CCM consulted, appreciate recommendations - Continue IV ABx and Nebs per CCM - VAP bundle addressed - Aspiration precaution HOB above 30 - Daily SBT and SAT trials as tolerated - Daily ABG and CXR - Continue SPO2 monitoring for SPO2 goal above 92% #Severe Sepsis #Pneumonia #Leukocytosis-improved #Lactic Acidosis/Metabolic acidosis - Imaging with bilateral pulmonary opacities - Presented with severe acidosis and leukocytosis - Patient remains aferbile - COVID PCR negative - Blood culture and sputum culture pendikng - ID is on consult - Continue current IV Abx per ID - Continue to F/U on B.cult - Daily CBC monitor #Acute Kidney Injury(RAYNE) most likely ATN #Hypokalemia - No history of CKD per family - Scr. as high as 6.3 this am - Nephrology on consult, appreciated recommendation - Continue Bcarb gtt per Nephro - Strict intake and output - Palacio in place with no UOP - Per Nephro patient might need HD - Avoid nephrotoxic medications; Renally dose medications - Monitor and replace electrolytes as needed - Trend BMP #Acute Metabolic Acidosis - Probably due to severe acidosis - Continue sedation for RASS goal of 0 to -2 - Avoid benzodiazepine to reduce the possibility of delirium - Prn analgesia for CPOT greater than 3 - Maintenance of sleep-wake cycle #Hypertension #Elevated BNP #Elevated troponin - BNP >2000 ; troponin 2.000 - could also be secondary to renal failure - 2D Echo is pending - Cardiology on consult, appreciated recommendations - No diuretic due to kidney function - Home meds resumed - Continue blood pressure monitor per protocol #Elevated D-dimer - COVID PCR negatine - BLE doppler pending - Continue SubQ heparin #Type 2 Diabetes mellitus - Continue SSI Q6hrs - Avoid Hypoglycemia - While critically ill target blood glucose of 140-180 #GI/DVT Prophylaxis - PPI- Pepcid - Continue AC- Heparin SubQ The high probability of a clinically significant, sudden or life threatening deterioration of the [multiple] system(s) required my full and direct attention, intervention and personal management. The aggregate critical care time was [60] minutes. This time is in addition to time spent performing reported procedures but includes the following: [x] Data Review and interpretation [x] Patient assessment and monitoring of vital signs [x] Documentation [x] Medication orders and management Disposition Plan: ICU Total Time Spent with Patient (Minutes): 60 History Interval history: Patient seen and examined at the bedside. Intubated and sedated on propofol. ZANE overnight Hospitalist Physical - Constitutional Vitals: Temp Pulse Resp BP Pulse Ox 98.4 F 111 H 20 153/80 96 12/03/21 07:17 12/03/21 10:30 12/03/21 04:00 12/03/21 10:30 12/03/21 10:30 General appearance: Present: no acute distress, other (Intubated and Sedated) - EENT Eyes: Present: PERRL - Respiratory Respiratory effort: normal Respiratory: bilateral: rhonchi - Cardiovascular Rhythm: regular Heart Sounds: Present: S1 & S2 - Extremities Extremities: no ischemia, pulses intact, pulses symmetrical, abnormal (RT. AKA) Extremity abnormal: edema - Peripheral Assessment Generalized Edema Type: Non-pitting Edema Degree: 2+ Capillary Refill: < 3 seconds Skin Temperature: Warm Peripheral Pulses: within normal limits - Abdominal General gastrointestinal: soft, non-distended, normal bowel sounds - Integumentary Integumentary: Present: warm, dry - Psychiatric Psychiatric: other (Intubated and Sedated) - Neurologic Neurologic: other (Intubated and Sedated) - Allied Health Allied health notes reviewed: nursing HEART Score - HEART Score Troponin: Troponin T 2.500 ng/mL (0.00-0.029) H* 12/02/21 13:51 Results - Labs CBC & Chem 7: 12/03/21 04:00 12/03/21 04:00 Labs: Laboratory Last Values WBC 6.1 K/mm3 (4.5-11.0) 12/03/21 04:00 RBC 4.11 M/mm3 (3.65-5.03) 12/03/21 04:00 Hgb 11.7 gm/dl (10.1-14.3) 12/03/21 04:00 Hct 35.7 % (30.3-42.9) 12/03/21 04:00 MCV 87 fl (79-97) 12/03/21 04:00 MCH 28 pg (28-32) 12/03/21 04:00 MCHC 33 % (30-34) 12/03/21 04:00 RDW 15.4 % (13.2-15.2) H 12/03/21 04:00 Plt Count 248 K/mm3 (140-440) 12/03/21 04:00 Lymph % (Auto) 6.3 % (13.4-35.0) L 12/02/21 01:24 [place] % (Auto) 11.7 % (0.0-7.3) H 12/02/21 01:24 Eos % (Auto) 0.0 % (0.0-4.3) 12/02/21 01:24 Baso % (Auto) 0.2 % (0.0-1.8) 12/02/21 01:24 Lymph # (Auto) 1.0 K/mm3 (1.2-5.4) L 12/02/21 01:24 [place] # (Auto) 1.8 K/mm3 (0.0-0.8) H 12/02/21 01:24 Eos # (Auto) 0.0 K/mm3 (0.0-0.4) 12/02/21 01:24 Baso # (Auto) 0.0 K/mm3 (0.0-0.1) 12/02/21 01:24 Add Manual Diff Complete 12/03/21 04:00 Total Counted 100 12/03/21 04:00 Seg Neutrophils % 81.8 % (40.0-70.0) H 12/02/21 01:24 Seg Neuts % (Manual) 67.0 % (40.0-70.0) 12/03/21 04:00 Band Neutrophils % 18.0 % 12/03/21 04:00 Lymphocytes % (Manual) 7.0 % (13.4-35.0) L 12/03/21 04:00 Reactive Lymphs % (Man) 0 % 12/03/21 04:00 Monocytes % (Manual) 3.0 % (0.0-7.3) 12/03/21 04:00 Eosinophils % (Manual) 0 % (0.0-4.3) 12/03/21 04:00 Basophils % (Manual) 0 % (0.0-1.8) 12/03/21 04:00 Metamyelocytes % 4.0 % 12/03/21 04:00 Myelocytes % 1.0 % 12/03/21 04:00 Promyelocytes % 0 % 12/03/21 04:00 Blast Cells % 0 % 12/03/21 04:00 Nucleated RBC % Not Reportable 12/03/21 04:00 Seg Neutrophils # 12.6 K/mm3 (1.8-7.7) H 12/02/21 01:24 Seg Neutrophils # Man 4.1 K/mm3 (1.8-7.7) 12/03/21 04:00 Band Neutrophils # 1.1 K/mm3 12/03/21 04:00 Lymphocytes # (Manual) 0.4 K/mm3 (1.2-5.4) L 12/03/21 04:00 Abs React Lymphs (Man) 0.0 K/mm3 12/03/21 04:00 Monocytes # (Manual) 0.2 K/mm3 (0.0-0.8) 12/03/21 04:00 Eosinophils # (Manual) 0.0 K/mm3 (0.0-0.4) 12/03/21 04:00 Basophils # (Manual) 0.0 K/mm3 (0.0-0.1) 12/03/21 04:00 Metamyelocytes # 0.2 K/mm3 12/03/21 04:00 Myelocytes # 0.1 K/mm3 12/03/21 04:00 Promyelocytes # 0.0 K/mm3 12/03/21 04:00 Blast Cells # 0.0 K/mm3 12/03/21 04:00 WBC Morphology Not Reportable 12/03/21 04:00 Hypersegmented Neuts Not Reportable 12/03/21 04:00 Hyposegmented Neuts Not Reportable 12/03/21 04:00 Hypogranular Neuts Not Reportable 12/03/21 04:00 Smudge Cells Not Reportable 12/03/21 04:00 Toxic Granulation Not Reportable 12/03/21 04:00 Toxic Vacuolation Not Reportable 12/03/21 04:00 Dohle Bodies Not Reportable 12/03/21 04:00 Pelger-Huet Anomaly Not Reportable 12/03/21 04:00 Randee Rods Not Reportable 12/03/21 04:00 Platelet Estimate Consistent w auto 12/03/21 04:00 Clumped Platelets Few 12/03/21 04:00 Plt Clumps, EDTA Not Reportable 12/03/21 04:00 Large Platelets Few 12/03/21 04:00 Giant Platelets Not Reportable 12/03/21 04:00 Platelet Satelliting Not Reportable 12/03/21 04:00 Plt Morphology Comment Not Reportable 12/03/21 04:00 RBC Morphology Not Reportable 12/03/21 04:00 Dimorphic RBCs Not Reportable 12/03/21 04:00 Polychromasia Not Reportable 12/03/21 04:00 Hypochromasia Not Reportable 12/03/21 04:00 Poikilocytosis Not Reportable 12/03/21 04:00 Anisocytosis Not Reportable 12/03/21 04:00 Microcytosis Not Reportable 12/03/21 04:00 Macrocytosis Not Reportable 12/03/21 04:00 Spherocytes Not Reportable 12/03/21 04:00 Pappenheimer Bodies Not Reportable 12/03/21 04:00 Sickle Cells Not Reportable 12/03/21 04:00 Target Cells Not Reportable 12/03/21 04:00 Tear Drop Cells Not Reportable 12/03/21 04:00 Ovalocytes Not Reportable 12/03/21 04:00 Helmet Cells Not Reportable 12/03/21 04:00 [place] Bodies Not Reportable 12/03/21 04:00 Beacon Rings Not Reportable 12/03/21 04:00 [place]ia Cells 1+ 02/16/22 04:00 Bite Cells Not Reportable 12/03/21 04:00 Crenated Cell Not Reportable 12/03/21 04:00 Elliptocytes Not Reportable 12/03/21 04:00 Acanthocytes (Spur) Rare 12/03/21 04:00 Rouleaux Not Reportable 12/03/21 04:00 Hemoglobin C Crystals Not Reportable 12/03/21 04:00 Schistocytes Not Reportable 12/03/21 04:00 Malaria parasites Not Reportable 12/03/21 04:00 Josemanuel Bodies Not Reportable 12/03/21 04:00 Hem Pathologist Commnt No 12/03/21 04:00 PT 15.9 Sec. (12.2-14.9) H 12/02/21 01:24 INR 1.15 (0.87-1.13) H 12/02/21 01:24 APTT 31.5 Sec. (24.2-36.6) 12/02/21 01:24 D-Dimer 1461.68 ng/mlDDU (0-234) H 12/02/21 04:18 ABG pH 7.533 pH Units (7.350-7.450) H 12/03/21 08:35 ABG pCO2 27.0 mm Hg 12/03/21 08:35 ABG pO2 120.9 mm Hg (80.0-90.0) H 12/03/21 08:35 ABG HCO3 22.2 mmol/L (20.0-26.0) 12/03/21 08:35 ABG O2 Saturation 98.6 % (95.0-99.0) 12/03/21 08:35 ABG O2 Content 16.5 (0.0-44) 12/03/21 08:35 ABG Base Excess 0.6 mmol/L (-2.0-3.0) 12/03/21 08:35 ABG Hemoglobin 11.9 gm/dl (12.0-16.0) L 12/03/21 08:35 ABG Carboxyhemoglobin 0.9 % (0.0-5.0) 12/03/21 08:35 ABG Methemoglobin 0.7 % (0.0-1.5) 12/03/21 08:35 VBG pH 7.167 (7.320-7.420) L* 12/02/21 01:24 Oxyhemoglobin 97.0 % (95.0-99.0) 12/03/21 08:35 FiO2 80 % 12/03/21 08:35 Sodium 145 mmol/L (137-145) 12/03/21 04:00 Potassium 3.5 mmol/L (3.6-5.0) L 12/03/21 04:00 Chloride 100.8 mmol/L (98-107) 12/03/21 04:00 Carbon Dioxide 21 mmol/L (22-30) L 12/03/21 04:00 Anion Gap 27 mmol/L 12/03/21 04:00 BUN 63 mg/dL (7-17) H 12/03/21 04:00 Creatinine 6.3 mg/dL (0.6-1.2) H 12/03/21 04:00 Estimated GFR 6 ml/min 12/03/21 04:00 BUN/Creatinine Ratio 10 % 12/03/21 04:00 Glucose 158 mg/dL (65-100) H 12/03/21 04:00 POC Glucose 145 mg/dL (70-105) H 12/03/21 06:14 Lactic Acid 5.80 mmol/L (0.7-2.0) H* 12/03/21 00:42 Calcium 7.9 mg/dL (8.4-10.2) L 12/03/21 04:00 Ferritin 168.9 ng/mL (10.0-200.0) 12/02/21 04:18 Total Bilirubin 0.40 mg/dL (0.1-1.2) 12/02/21 01:24 AST 86 units/L (5-40) H 12/02/21 01:24 ALT 69 units/L (7-56) H 12/02/21 01:24 Alkaline Phosphatase 91 units/L (35-129) 12/02/21 01:24 Lactate Dehydrogenase 958 units/L (91-180) H 12/02/21 04:18 Total Creatine Kinase 254 units/L (30-135) H 12/02/21 01:24 CK-MB (CK-2) 20.2 ng/mL (0.0-4.0) H 12/02/21 01:24 CK-MB (CK-2) Rel Index 7.9 (0-4) H 12/02/21 01:24 Troponin T 2.500 ng/mL (0.00-0.029) H* 12/02/21 13:51 C-Reactive Protein 6.60 mg/dL (0.00-1.30) H 12/02/21 04:18 NT-Pro-B Natriuret Pep > 3500 pg/mL (0-900) H 12/02/21 01:24 Total Protein 7.7 g/dL (6.3-8.2) 12/02/21 01:24 Albumin 4.0 g/dL (3.9-5) 12/02/21 01:24 Albumin/Globulin Ratio 1.1 % 12/02/21 01:24 Triglycerides 85 mg/dL (2-149) 12/02/21 01:24 Cholesterol 177 mg/dL (50-199) 12/02/21 01:24 LDL Cholesterol Direct 91 mg/dL (50-130) 12/02/21 01:24 HDL Cholesterol 74 mg/dL (40-59) H 12/02/21 01:24 Cholesterol/HDL Ratio 2.39 % 12/02/21 01:24 Procalcitonin 1.24 ng/mL (<0.15) 12/02/21 04:18 Urine Color Yellow (Yellow) 12/02/21 00:52 Urine Turbidity Cloudy (Clear) 12/02/21 00:52 Urine pH 6.0 (5.0-7.0) 12/02/21 00:52 Ur Specific [place] 1.008 (1.003-1.030) 12/02/21 00:52 Urine Protein >500 mg/dL (Negative) 12/02/21 00:52 Urine Glucose (UA) >=500 mg/dL (Negative) 12/02/21 00:52 Urine Ketones Tr mg/dL (Negative) 12/02/21 00:52 Urine Blood Mod (Negative) 12/02/21 00:52 Urine Nitrite Neg (Negative) 12/02/21 00:52 Urine Bilirubin Neg (Negative) 12/02/21 00:52 Urine Urobilinogen < 2.0 mg/dL (<2.0) 12/02/21 00:52 Ur Leukocyte Esterase Neg (Negative) 12/02/21 00:52 Urine WBC (Auto) 27.0 /HPF (0.0-6.0) H 12/02/21 00:52 Urine RBC (Auto) 7.0 /HPF (0.0-6.0) 12/02/21 00:52 U Epithel Cells (Auto) 3.0 /HPF (0-13.0) 12/02/21 00:52 Urine Bacteria (Auto) 1+ /HPF (Negative) 12/02/21 00:52 Urine Mucus Few /HPF 12/02/21 00:52 Urine Yeast (Budding) Few /HPF 12/02/21 00:52 Urine Creatinine 24.4 mg/dL (0.1-20.0) H 12/02/21 00:52 Protein/Creatinin Ratio 4.55 12/02/21 00:52 Urine Sodium 109 mmol/L 12/02/21 00:52 Urine Total Protein 111 mg/dL (5-11.8) H 12/02/21 00:52 Coronavirus (PCR) Negative (Negative) 12/02/21 09:00 Microbiology: Microbiology 12/02/21 01:46 Peripheral/Venous Blood Culture - Preliminary NO GROWTH AFTER 24 HOURS 12/02/21 01:24 Peripheral/Venous Blood Culture - Preliminary NO GROWTH AFTER 24 HOURS Palacio/IV: Voiding Method Indwelling Catheter Active Medications - Current Medications Current Medications: Generic Name Dose Route Start Last Admin Trade Name Freq PRN Reason Stop Dose Admin Acetaminophen 650 mg 12/02/21 04:37 Acetaminophen 325 Mg Tab PO Q4H PRN Pain MILD(1-3)/Fever >100.5/HYLTON Alprazolam 0.5 mg 12/02/21 11:30 12/02/21 11:38 Alprazolam 0.5 Mg Tab PO 0.5 mg Q8H PRN Administration Anxiety Amlodipine Besylate 10 mg 12/03/21 10:00 Amlodipine 10 Mg Tab PO DAILY KHARI Aspirin 81 mg 12/03/21 10:00 Aspirin 81 Mg Tab Chew PO QDAY KHARI Cilostazol 50 mg 12/02/21 22:00 12/03/21 01:05 Cilostazol 100 Mg Tab PO 50 mg BID KHARI Administration Clopidogrel Bisulfate 75 mg 12/03/21 10:00 Clopidogrel 75 Mg Tab PO QDAY KHARI Dextrose 0 ml 12/02/21 05:10 Dextrose 10% *Hypoglycemia IV PRN PRN Hypoglycemia Protocol Famotidine 20 mg 12/02/21 22:00 12/02/21 21:21 Famotidine 20 Mg/2 Ml Inj IV 20 mg BID KHARI Administration Heparin Sodium (Porcine) 5,000 unit 12/02/21 06:00 12/03/21 06:07 Heparin 5,000 Unit/1 Ml Vial SUB-Q 5,000 unit Q8HR KHARI Administration Hydrophilic Ointment 1 applic 12/02/21 17:32 Lip Therapy Vaseline TP Q2HR PRN Dry Lips Sodium Bicarbonate 150 meq/ 1,150 mls @ 100 mls/hr 12/02/21 10:00 12/03/21 08:22 Dextrose IV 100 mls/hr DIRECT KHARI Administration Cefepime HCl 1 gm in 100 mls @ 200 mls/hr 12/02/21 18:00 Cefepime/Ns 1 Gm/100 Ml IV QPM KHARI Protocol Propofol 1,000 mg in 100 mls @ 1.839 mls/hr 12/02/21 18:00 12/03/21 06:08 Diprivan 10 Mg/Ml IV 10 mcg/kg/min TITR KHARI 3.678 mls/hr Administration Protocol 5 MCG/KG/MIN Insulin Human Lispro 0 unit 12/03/21 00:00 12/03/21 06:22 Insulin Lispro 100 Unit/Ml SUB-Q Not Given Q6HR [facility] Protocol Levalbuterol HCl 0.63 mg 12/02/21 10:00 Levalbuterol 0.63 Mg/3 Ml Nebu IH Q8HRT PRN Shortness Of Breath Lorazepam 1 mg 12/02/21 14:22 12/02/21 15:18 Lorazepam 2 Mg/Ml Vial IV 1 mg Q6H PRN Administration Agitation Magnesium Hydroxide 30 ml 12/02/21 04:37 Magnesium Hydroxide (Mom) Oral Liqd Udc PO Q4H PRN Constipation Metoprolol Tartrate 25 mg 12/02/21 15:00 12/02/21 15:18 Metoprolol Tartrate 25 Mg Tab PO 25 mg QDAY KHARI Administration Morphine Sulfate 2 mg 12/02/21 04:37 Morphine 2 Mg/1 Ml Inj IV Q4H PRN Pain, Moderate (4-6) Morphine Sulfate 4 mg 12/02/21 04:37 Morphine 4 Mg/1 Ml Inj IV Q4H PRN Pain , Severe (7-10) Multi-Ingred Cream/Lotion/Oil/Oint 1 applic 12/02/21 17:32 Mineral Oil/Petrolatum, White Ophth Oint 3.5 Gm OU Q4HR PRN Dry Eye(s) Ondansetron HCl 4 mg 12/02/21 04:37 Ondansetron 4 Mg/2 Ml Inj IV Q8H PRN Nausea And Vomiting Pravastatin Sodium 80 mg 12/02/21 22:00 12/03/21 01:05 Pravastatin 80 Mg Tab PO 80 mg QHS KHARI Administration Senna/Docusate Sodium 1 tab 12/02/21 22:00 12/02/21 21:21 Sennosides/Docusate Sodium 8.6/50 Mg Tab FEEDTUBE 1 tab BID KHARI Administration Sodium Chloride 10 ml 12/02/21 10:00 12/02/21 21:22 Sodium Chloride 0.9% 10 Ml Flush Syringe IV 10 ml BID KHARI Administration Sodium Chloride 10 ml 12/02/21 04:37 Sodium Chloride 0.9% 10 Ml Flush Syringe IV PRN PRN LINE FLUSH <REMBERTO RODRIGUEZ - Last Filed: 12/04/21 08:09> Assessment and Plan Assessment and plan: I saw and evaluated the patient. I agree with the findings and the plan of care as documented in the Nurse Practitioner's~note, with the following corrections and additions. Hospitalist Physical - Constitutional Vitals: Temp Pulse Resp BP Pulse Ox 98.2 F 112 H 15 110/48 99 12/04/21 07:46 12/04/21 07:23 12/04/21 04:00 12/04/21 07:23 12/04/21 07:23 HEART Score - HEART Score Troponin: Troponin T 2.500 ng/mL (0.00-0.029) H* 12/02/21 13:51 Results - Labs CBC & Chem 7: 12/04/21 04:18 12/04/21 04:18 Labs: Laboratory Last Values WBC 10.9 K/mm3 (4.5-11.0) 12/04/21 04:18 RBC 3.29 M/mm3 (3.65-5.03) L 12/04/21 04:18 Hgb 10.0 gm/dl (10.1-14.3) L 12/04/21 04:18 Hct 28.4 % (30.3-42.9) L D 12/04/21 04:18 MCV 86 fl (79-97) 12/04/21 04:18 MCH 30 pg (28-32) 12/04/21 04:18 MCHC 35 % (30-34) H 12/04/21 04:18 RDW 15.4 % (13.2-15.2) H 12/04/21 04:18 Plt Count 205 K/mm3 (140-440) 12/04/21 04:18 Lymph % (Auto) 6.3 % (13.4-35.0) L 12/02/21 01:24 [place] % (Auto) 11.7 % (0.0-7.3) H 12/02/21 01:24 Eos % (Auto) 0.0 % (0.0-4.3) 12/02/21 01:24 Baso % (Auto) 0.2 % (0.0-1.8) 12/02/21 01:24 Lymph # (Auto) 1.0 K/mm3 (1.2-5.4) L 12/02/21 01:24 [place] # (Auto) 1.8 K/mm3 (0.0-0.8) H 12/02/21 01:24 Eos # (Auto) 0.0 K/mm3 (0.0-0.4) 12/02/21 01:24 Baso # (Auto) 0.0 K/mm3 (0.0-0.1) 12/02/21 01:24 Add Manual Diff Complete 12/03/21 04:00 Total Counted 100 12/03/21 04:00 Seg Neutrophils % 81.8 % (40.0-70.0) H 12/02/21 01:24 Seg Neuts % (Manual) 67.0 % (40.0-70.0) 12/03/21 04:00 Band Neutrophils % 18.0 % 12/03/21 04:00 Lymphocytes % (Manual) 7.0 % (13.4-35.0) L 12/03/21 04:00 Reactive Lymphs % (Man) 0 % 12/03/21 04:00 Monocytes % (Manual) 3.0 % (0.0-7.3) 12/03/21 04:00 Eosinophils % (Manual) 0 % (0.0-4.3) 12/03/21 04:00 Basophils % (Manual) 0 % (0.0-1.8) 12/03/21 04:00 Metamyelocytes % 4.0 % 12/03/21 04:00 Myelocytes % 1.0 % 12/03/21 04:00 Promyelocytes % 0 % 12/03/21 04:00 Blast Cells % 0 % 12/03/21 04:00 Nucleated RBC % Not Reportable 12/03/21 04:00 Seg Neutrophils # 12.6 K/mm3 (1.8-7.7) H 12/02/21 01:24 Seg Neutrophils # Man 4.1 K/mm3 (1.8-7.7) 12/03/21 04:00 Band Neutrophils # 1.1 K/mm3 12/03/21 04:00 Lymphocytes # (Manual) 0.4 K/mm3 (1.2-5.4) L 12/03/21 04:00 Abs React Lymphs (Man) 0.0 K/mm3 12/03/21 04:00 Monocytes # (Manual) 0.2 K/mm3 (0.0-0.8) 12/03/21 04:00 Eosinophils # (Manual) 0.0 K/mm3 (0.0-0.4) 12/03/21 04:00 Basophils # (Manual) 0.0 K/mm3 (0.0-0.1) 12/03/21 04:00 Metamyelocytes # 0.2 K/mm3 12/03/21 04:00 Myelocytes # 0.1 K/mm3 12/03/21 04:00 Promyelocytes # 0.0 K/mm3 12/03/21 04:00 Blast Cells # 0.0 K/mm3 12/03/21 04:00 WBC Morphology Not Reportable 12/03/21 04:00 Hypersegmented Neuts Not Reportable 12/03/21 04:00 Hyposegmented Neuts Not Reportable 12/03/21 04:00 Hypogranular Neuts Not Reportable 12/03/21 04:00 Smudge Cells Not Reportable 12/03/21 04:00 Toxic Granulation Not Reportable 12/03/21 04:00 Toxic Vacuolation Not Reportable 12/03/21 04:00 Dohle Bodies Not Reportable 12/03/21 04:00 Pelger-Huet Anomaly Not Reportable 12/03/21 04:00 Randee Rods Not Reportable 12/03/21 04:00 Platelet Estimate Consistent w auto 12/03/21 04:00 Clumped Platelets Few 12/03/21 04:00 Plt Clumps, EDTA Not Reportable 12/03/21 04:00 Large Platelets Few 12/03/21 04:00 Giant Platelets Not Reportable 12/03/21 04:00 Platelet Satelliting Not Reportable 12/03/21 04:00 Plt Morphology Comment Not Reportable 12/03/21 04:00 RBC Morphology Not Reportable 12/03/21 04:00 Dimorphic RBCs Not Reportable 12/03/21 04:00 Polychromasia Not Reportable 12/03/21 04:00 Hypochromasia Not Reportable 12/03/21 04:00 Poikilocytosis Not Reportable 12/03/21 04:00 Anisocytosis Not Reportable 12/03/21 04:00 Microcytosis Not Reportable 12/03/21 04:00 Macrocytosis Not Reportable 12/03/21 04:00 Spherocytes Not Reportable 12/03/21 04:00 Pappenheimer Bodies Not Reportable 12/03/21 04:00 Sickle Cells Not Reportable 12/03/21 04:00 Target Cells Not Reportable 12/03/21 04:00 Tear Drop Cells Not Reportable 12/03/21 04:00 Ovalocytes Not Reportable 12/03/21 04:00 Helmet Cells Not Reportable 12/03/21 04:00 [place] Bodies Not Reportable 12/03/21 04:00 Beacon Rings Not Reportable 12/03/21 04:00 [place] Cells 1+ 12/03/21 04:00 Bite Cells Not Reportable 12/03/21 04:00 Crenated Cell Not Reportable 12/03/21 04:00 Elliptocytes Not Reportable 12/03/21 04:00 Acanthocytes (Spur) Rare 12/03/21 04:00 Rouleaux Not Reportable 12/03/21 04:00 Hemoglobin C Crystals Not Reportable 12/03/21 04:00 Schistocytes Not Reportable 12/03/21 04:00 Malaria parasites Not Reportable 12/03/21 04:00 Josemanuel Bodies Not Reportable 12/03/21 04:00 Hem Pathologist Commnt No 12/03/21 04:00 PT 15.9 Sec. (12.2-14.9) H 12/02/21 01:24 INR 1.15 (0.87-1.13) H 12/02/21 01:24 APTT 31.5 Sec. (24.2-36.6) 12/02/21 01:24 D-Dimer 1461.68 ng/mlDDU (0-234) H 12/02/21 04:18 ABG pH 7.533 pH Units (7.350-7.450) H 12/03/21 08:35 ABG pCO2 27.0 mm Hg 12/03/21 08:35 ABG pO2 120.9 mm Hg (80.0-90.0) H 12/03/21 08:35 ABG HCO3 22.2 mmol/L (20.0-26.0) 12/03/21 08:35 ABG O2 Saturation 98.6 % (95.0-99.0) 12/03/21 08:35 ABG O2 Content 16.5 (0.0-44) 12/03/21 08:35 ABG Base Excess 0.6 mmol/L (-2.0-3.0) 12/03/21 08:35 ABG Hemoglobin 11.9 gm/dl (12.0-16.0) L 12/03/21 08:35 ABG Carboxyhemoglobin 0.9 % (0.0-5.0) 12/03/21 08:35 ABG Methemoglobin 0.7 % (0.0-1.5) 12/03/21 08:35 VBG pH 7.167 (7.320-7.420) L* 12/02/21 01:24 Oxyhemoglobin 97.0 % (95.0-99.0) 12/03/21 08:35 FiO2 80 % 12/03/21 08:35 Sodium 140 mmol/L (137-145) 12/04/21 04:18 Potassium 3.5 mmol/L (3.6-5.0) L 12/04/21 04:18 Chloride 91.5 mmol/L (98-107) L 12/04/21 04:18 Carbon Dioxide 33 mmol/L (22-30) H D 12/04/21 04:18 Anion Gap 19 mmol/L 12/04/21 04:18 BUN 74 mg/dL (7-17) H 12/04/21 04:18 Creatinine 7.5 mg/dL (0.6-1.2) H 12/04/21 04:18 Estimated GFR 5 ml/min 12/04/21 04:18 BUN/Creatinine Ratio 10 % 12/04/21 04:18 Glucose 155 mg/dL (65-100) H 12/04/21 04:18 POC Glucose 161 mg/dL (70-105) H 12/03/21 23:21 Lactic Acid 4.60 mmol/L (0.7-2.0) H* 12/04/21 04:18 Calcium 7.2 mg/dL (8.4-10.2) L 12/04/21 04:18 Phosphorus 4.60 mg/dL (2.5-4.5) H 12/04/21 04:18 Magnesium 1.80 mg/dL (1.7-2.3) 12/04/21 04:18 Ferritin 168.9 ng/mL (10.0-200.0) 12/02/21 04:18 Total Bilirubin 0.40 mg/dL (0.1-1.2) 12/02/21 01:24 AST 86 units/L (5-40) H 12/02/21 01:24 ALT 69 units/L (7-56) H 12/02/21 01:24 Alkaline Phosphatase 91 units/L (35-129) 12/02/21 01:24 Lactate Dehydrogenase 958 units/L (91-180) H 12/02/21 04:18 Total Creatine Kinase 254 units/L (30-135) H 12/02/21 01:24 CK-MB (CK-2) 20.2 ng/mL (0.0-4.0) H 12/02/21 01:24 CK-MB (CK-2) Rel Index 7.9 (0-4) H 12/02/21 01:24 Troponin T 2.500 ng/mL (0.00-0.029) H* 12/02/21 13:51 C-Reactive Protein 6.60 mg/dL (0.00-1.30) H 12/02/21 04:18 NT-Pro-B Natriuret Pep > 3500 pg/mL (0-900) H 12/02/21 01:24 Total Protein 7.7 g/dL (6.3-8.2) 12/02/21 01:24 Albumin 4.0 g/dL (3.9-5) 12/02/21 01:24 Albumin/Globulin Ratio 1.1 % 12/02/21 01:24 Triglycerides 85 mg/dL (2-149) 12/02/21 01:24 Cholesterol 177 mg/dL (50-199) 12/02/21 01:24 LDL Cholesterol Direct 91 mg/dL (50-130) 12/02/21 01:24 HDL Cholesterol 74 mg/dL (40-59) H 12/02/21 01:24 Cholesterol/HDL Ratio 2.39 % 12/02/21 01:24 Procalcitonin 1.24 ng/mL (<0.15) 12/02/21 04:18 Urine Color Yellow (Yellow) 12/03/21 13:48 Urine Turbidity Hazy (Clear) 12/03/21 13:48 Urine pH 7.0 (5.0-7.0) 12/03/21 13:48 Ur Specific [place] 1.009 (1.003-1.030) 12/03/21 13:48 Urine Protein >500 mg/dL (Negative) 12/03/21 13:48 Urine Glucose (UA) 50 mg/dL (Negative) 12/03/21 13:48 Urine Ketones Neg mg/dL (Negative) 12/03/21 13:48 Urine Blood Mod (Negative) 12/03/21 13:48 Urine Nitrite Neg (Negative) 12/03/21 13:48 Urine Bilirubin Neg (Negative) 12/03/21 13:48 Urine Urobilinogen < 2.0 mg/dL (<2.0) 12/03/21 13:48 Ur Leukocyte Esterase Neg (Negative) 12/03/21 13:48 Urine WBC (Auto) 9.0 /HPF (0.0-6.0) H 12/03/21 13:48 Urine RBC (Auto) 5.0 /HPF (0.0-6.0) 12/03/21 13:48 U Epithel Cells (Auto) 2.0 /HPF (0-13.0) 12/03/21 13:48 Urine Bacteria (Auto) 1+ /HPF (Negative) 12/02/21 00:52 Urine Mucus Few /HPF 12/03/21 13:48 Urine Yeast (Budding) Few /HPF 12/02/21 00:52 Urine Creatinine 24.4 mg/dL (0.1-20.0) H 12/02/21 00:52 Protein/Creatinin Ratio 4.55 12/02/21 00:52 Urine Sodium 109 mmol/L 12/02/21 00:52 Urine Total Protein 111 mg/dL (5-11.8) H 12/02/21 00:52 Random Vancomycin 4.0 ug/mL (0-40.0) 12/03/21 13:48 Coronavirus (PCR) Negative (Negative) 12/02/21 09:00 Microbiology: Microbiology 12/02/21 01:46 Peripheral/Venous Blood Culture - Preliminary NO GROWTH AFTER 48 HOURS 12/02/21 01:24 Peripheral/Venous Blood Culture - Preliminary NO GROWTH AFTER 48 HOURS 12/02/21 19:48 Tracheal Aspirate Sputum Culture - Preliminary Palacio/IV: Voiding Method Indwelling Catheter Active Medications - Current Medications Current Medications: Generic Name Dose Route Start Last Admin Trade Name Freq PRN Reason Stop Dose Admin Acetaminophen 650 mg 12/02/21 04:37 Acetaminophen 325 Mg Tab PO Q4H PRN Pain MILD(1-3)/Fever >100.5/HYLTON Alprazolam 0.5 mg 12/02/21 11:30 12/02/21 11:38 Alprazolam 0.5 Mg Tab PO 0.5 mg Q8H PRN Administration Anxiety Amlodipine Besylate 10 mg 12/03/21 10:00 12/03/21 13:08 Amlodipine 10 Mg Tab PO 10 mg DAILY KHARI Administration Aspirin 81 mg 12/03/21 10:00 12/03/21 13:07 Aspirin 81 Mg Tab Chew PO 81 mg QDAY KHARI Administration Cilostazol 50 mg 12/02/21 22:00 12/03/21 21:58 Cilostazol 100 Mg Tab PO 50 mg BID KHARI Administration Clopidogrel Bisulfate 75 mg 12/03/21 10:00 12/03/21 13:07 Clopidogrel 75 Mg Tab PO 75 mg QDAY KHARI Administration Dextrose 0 ml 12/02/21 05:10 Dextrose 10% *Hypoglycemia IV PRN PRN Hypoglycemia Protocol Famotidine 20 mg 12/02/21 22:00 12/03/21 21:58 Famotidine 20 Mg/2 Ml Inj IV 20 mg BID KHARI Administration Heparin Sodium (Porcine) 5,000 unit 12/02/21 06:00 12/04/21 05:05 Heparin 5,000 Unit/1 Ml Vial SUB-Q 5,000 unit Q8HR KHARI Administration Hydrophilic Ointment 1 applic 12/02/21 17:32 Lip Therapy Vaseline TP Q2HR PRN Dry Lips Cefepime HCl 1 gm in 100 mls @ 200 mls/hr 12/02/21 18:00 12/03/21 18:56 Cefepime/Ns 1 Gm/100 Ml IV Infused QPM KHARI Infusion Protocol Propofol 1,000 mg in 100 mls @ 1.839 mls/hr 12/02/21 18:00 12/04/21 00:19 Diprivan 10 Mg/Ml IV 15 mcg/kg/min TITR KHARI 5.517 mls/hr Administration Protocol 5 MCG/KG/MIN Insulin Human Lispro 0 unit 12/03/21 00:00 12/04/21 05:03 Insulin Lispro 100 Unit/Ml SUB-Q 2 unit Q6HR KHARI Administration Protocol Levalbuterol HCl 0.63 mg 12/02/21 10:00 Levalbuterol 0.63 Mg/3 Ml Nebu IH Q8HRT PRN Shortness Of Breath Lorazepam 1 mg 12/02/21 14:22 12/02/21 15:18 Lorazepam 2 Mg/Ml Vial IV 1 mg Q6H PRN Administration Agitation Magnesium Hydroxide 30 ml 12/02/21 04:37 Magnesium Hydroxide (Mom) Oral Liqd Udc PO Q4H PRN Constipation Metoprolol Tartrate 25 mg 12/02/21 15:00 12/03/21 13:07 Metoprolol Tartrate 25 Mg Tab PO 25 mg QDAY [facility] Administration Morphine Sulfate 2 mg 12/02/21 04:37 12/04/21 00:19 Morphine 2 Mg/1 Ml Inj IV 2 mg Q4H PRN Administration Pain, Moderate (4-6) Morphine Sulfate 4 mg 12/02/21 04:37 Morphine 4 Mg/1 Ml Inj IV Q4H PRN Pain , Severe (7-10) Multi-Ingred Cream/Lotion/Oil/Oint 1 applic 12/02/21 17:32 Mineral Oil/Petrolatum, White Ophth Oint 3.5 Gm OU Q4HR PRN Dry Eye(s) Nitroglycerin 1 inch 12/03/21 14:00 12/04/21 05:04 Nitroglycerin 2% Oint 1 Gm TP 1 inch QIDNTG KHARI Administration Protocol Ondansetron HCl 4 mg 12/02/21 04:37 Ondansetron 4 Mg/2 Ml Inj IV Q8H PRN Nausea And Vomiting Pravastatin Sodium 80 mg 12/02/21 22:00 12/03/21 21:58 Pravastatin 80 Mg Tab PO 80 mg QHS KHARI Administration Senna/Docusate Sodium 1 tab 12/02/21 22:00 12/03/21 21:58 Sennosides/Docusate Sodium 8.6/50 Mg Tab FEEDTUBE 1 tab BID KHARI Administration Sodium Chloride 10 ml 12/02/21 10:00 12/03/21 21:58 Sodium Chloride 0.9% 10 Ml Flush Syringe IV 10 ml BID KHARI Administration Sodium Chloride 10 ml 12/02/21 04:37 Sodium Chloride 0.9% 10 Ml Flush Syringe IV PRN PRN LINE FLUSH Nutrition/Malnutrition Assess - Dietary Evaluation Nutrition/Malnutrition Findings: Nutrition Notes Start: 12/03/21 16:28 Freq: Status: Active Protocol: Document 12/03/21 16:29 ONI (Rec: 12/03/21 17:14 ONI [id number]) Nutrition Notes Need for Assessment 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 Current Diet NPO. TF-Nepro w/CARBSTEADY @ 27 ml/hr (since B 12/04). Labs/Tests 12/03: K 3.5, CO2 21, BUN 63, Crea 6.3, Glu 158. Pertinent Medications 12/03: Propofol 1000mg in 100 ml @ 3.678 ml/hr (97 Kcal), others nutritionally unremarkable. Height 5 ft 4 in Weight 61.3 kg [place] Body Weight (kg) 54.54 BMI 23.1 Intake Prior to Admission Good Weight change and time frame Pt states being unsure if loss body weight recently. Weight Status Appropriate Subjective/Other Information RD consult for skinr risk and risk of malnutrition assessments, and write/manage TF. Pt currently on NPO. Pt on Mechanical Ventilation. Pt shows no signs of concern for risk of malnutrition at the time, accordinf to Physical Assessment History notes. Pt shows no signs of concern for skin risk at the time, accordinf to Physical Assessment History notes. Pt has missing teeth, accordinf to Physical Assessment History notes. TF ordered. Percent of energy/protein needs met: Pt currently on NPO. Prescribed TF-Nepro w/ CARBSTEADY @ 27 ml/hr provides for energy/protein needs (1, 150 Kcal/52 g) -in addition, Propofol adds 97 Kcal- during LOS, 100% Kcal; 85% AA. Burn Absent Trauma Absent GI Symptoms None Food Allergy No Skin Integrity/Comment WNL. Current % PO Other Minimum of two criteria No #1 Nutrition Diagnosis Inadequate oral intake Etiology Pt on Mechanical Ventilation. As Evidenced by Signs and Symptoms Pt currently on NPO. Is patient on ventilator? Yes Is Patient Ambulatory and/or Out of Bed No REE-([facility]-confined to bed) [phone] Calculation Used for Recommendations [facility] Additional Notes Protein: 1-1.2 g/Kg; 61-73 g/ day. Fluids: 1 ml/Kcal, or as per MD. Nutrition Intervention Nutrition Support: Start Nepro w/CARBSTEADY @ 27 ml/hr. Flush: 100 ml water Q 4 hr, or as per MD. Kcal 1,150 Protein (gm) 52 Carbohydrates (gm) 103 Fat (gm) 61 Fluid (mL) 465 Fiber (gm) 8 % RDI: 100% Kcal; 85% AA. Goal #1 Provide at least 75% of energy /protein needs through Enteral Feeding during LOS. Goal #2 Maintain body weight within +/ -3% of admission body weight during LOS. Follow-Up By: 12/06/21 Additional Comments Continue monitoring TF tolerance and BM.
[2021-12-03] MEDS: SENNOSIDES/DOCUSATE SODIUM 8.6/50 MG TAB FEEDTUBE SCH ×2 (12:13→21:58)
--- NOTE | 2021-12-03 12:31 | Progress Note ---
Assessment and Plan Impression: * Acute kidney injury secondary to ATN * Metabolic acidosis, severe * Lactic acidosis * Acute hypoxic respiratory failure * Sepsis - ?bilateral PNA * Elevated troponin Plan: * Metabolic acidosis improved. However, patient with continued decline n renal function * Anticipate need for renal replacement therapy * Continue D5W w/ 150meq bicarb for metabolic acidosis * Abx per primary team/ID * Dose medications for renal * Avoid potential nephrotoxins * Strict I/O Subjective Date of service: 12/03/21 Interval history: Patient is currently intubated Objective - Vital Signs Vital signs: Vital Signs - 12hr 12/03/21 12/03/21 12/03/21 01:00 01:30 02:00 Temperature Pulse Rate 101 H 99 H 102 H Pulse Rate [ From Monitor] Respiratory Rate Blood Pressure 126/62 128/57 123/59 O2 Sat by Pulse 100 100 100 Oximetry 12/03/21 12/03/21 12/03/21 02:30 03:00 03:30 Temperature Pulse Rate 99 H 99 H 99 H Pulse Rate [ From Monitor] Respiratory Rate Blood Pressure 129/59 121/50 120/57 O2 Sat by Pulse 100 100 100 Oximetry 12/03/21 12/03/21 12/03/21 04:00 04:30 04:38 Temperature Pulse Rate 100 H 106 H 106 H Pulse Rate [ From Monitor] Respiratory 20 Rate Blood Pressure 128/64 136/71 136/71 O2 Sat by Pulse 100 100 100 Oximetry 12/03/21 12/03/21 12/03/21 05:00 05:30 06:00 Temperature 97.8 F Pulse Rate 101 H 107 H 105 H Pulse Rate [ From Monitor] Respiratory Rate Blood Pressure 125/64 127/68 136/74 O2 Sat by Pulse 99 99 100 Oximetry 12/03/21 12/03/21 12/03/21 06:30 07:00 07:17 Temperature 98.4 F Pulse Rate 106 H 107 H Pulse Rate [ From Monitor] Respiratory Rate Blood Pressure 142/71 135/71 O2 Sat by Pulse 100 100 Oximetry 12/03/21 12/03/21 12/03/21 07:30 08:00 08:30 Temperature Pulse Rate 105 H 104 H 110 H Pulse Rate [ 108 H From Monitor] Respiratory 20 Rate Blood Pressure 142/75 135/73 152/76 O2 Sat by Pulse 99 100 99 Oximetry 02/12/03/21 12/03/21 09:00 09:30 10:00 Temperature Pulse Rate 110 H 107 H 109 H Pulse Rate [ From Monitor] Respiratory Rate Blood Pressure 144/76 152/73 153/75 O2 Sat by Pulse 100 100 100 Oximetry 12/03/21 12/03/21 10:30 11:46 Temperature 98.5 F Pulse Rate 111 H Pulse Rate [ From Monitor] Respiratory Rate Blood Pressure 153/80 O2 Sat by Pulse 96 Oximetry - General Appearance General appearance: well-developed, well-nourished, intubated EENT: ATNC, other (ETT in place) Respiratory: Present: Other (coarse breath sounds) Gastrointestinal: normal Integumentary: no rash, warm and dry - Lab 12/04/21 04:18 12/04/21 04:18 Most recent lab results ABG pH 7.533 pH Units (7.350-7.450) H 12/03/21 08:35 ABG pCO2 27.0 mm Hg 12/03/21 08:35 ABG pO2 120.9 mm Hg (80.0-90.0) H 12/03/21 08:35 ABG HCO3 22.2 mmol/L (20.0-26.0) 12/03/21 08:35 ABG O2 Saturation 98.6 % (95.0-99.0) 12/03/21 08:35 Calcium 7.9 mg/dL (8.4-10.2) L 12/03/21 04:00 Urine Creatinine 24.4 mg/dL (0.1-20.0) H 12/02/21 00:52 Urine Sodium 109 mmol/L 12/02/21 00:52 Urine Total Protein 111 mg/dL (5-11.8) H 12/02/21 00:52 Medications & Allergies - Medications Allergies/Adverse Reactions: Allergies No Known Allergies Allergy (Verified 04/05/19 15:30) Home Medications: Home Medications Medication Instructions Recorded Confirmed Last Taken Type Gabapentin 300 mg PO BID 04/05/19 04/06/19 Unknown History Metoprolol [Lopressor TAB] 25 mg PO QDAY 04/05/19 04/06/19 Unknown History Simvastatin 40 mg PO QHS 04/05/19 04/06/19 Unknown History Vitamin D2 50,000 units PO QWEEK 04/05/19 04/06/19 Unknown History amLODIPine 10 mg PO DAILY 04/05/19 04/05/19 Unknown History metFORMIN [Glucophage] 500 mg PO QHS 04/05/19 04/06/19 Unknown History raNITIdine HCl [Zantac] 300 mg PO QDAY 04/05/19 04/06/19 Unknown History Aspirin [Aspirin BABY CHEW TAB] 81 mg PO QDAY #30 tab.chew 04/12/19 Unknown Rx Clopidogrel [Plavix] 75 mg PO QDAY #30 tablet 04/12/19 Unknown Rx cilostazoL [Pletal] 50 mg PO BID #30 tablet 04/12/19 Unknown Rx oxyCODONE /ACETAMINOPHEN [Percocet 2 tab PO Q6H PRN #20 tablet 04/12/19 Unknown Rx 5/325 mg] Active Medications: Generic Name Dose Route Start Last Admin Trade Name Freq PRN Reason Stop Dose Admin Acetaminophen 650 mg 12/02/21 04:37 Acetaminophen 325 Mg Tab PO Q4H PRN Pain MILD(1-3)/Fever >100.5/HYLTON Alprazolam 0.5 mg 12/02/21 11:30 12/02/21 11:38 Alprazolam 0.5 Mg Tab PO 0.5 mg Q8H PRN Administration Anxiety Amlodipine Besylate 10 mg 12/03/21 10:00 Amlodipine 10 Mg Tab PO DAILY [facility] Aspirin 81 mg 12/03/21 10:00 Aspirin 81 Mg Tab Chew PO QDAY [facility] Cilostazol 50 mg 12/02/21 22:00 12/03/21 01:05 Cilostazol 100 Mg Tab PO 50 mg BID KHARI Administration Clopidogrel Bisulfate 75 mg 12/03/21 10:00 Clopidogrel 75 Mg Tab PO QDAY [facility] Dextrose 0 ml 12/02/21 05:10 Dextrose 10% *Hypoglycemia IV PRN PRN Hypoglycemia Protocol Famotidine 20 mg 12/02/21 22:00 12/02/21 21:21 Famotidine 20 Mg/2 Ml Inj IV 20 mg BID KHARI Administration Heparin Sodium (Porcine) 5,000 unit 12/02/21 06:00 12/03/21 06:07 Heparin 5,000 Unit/1 Ml Vial SUB-Q 5,000 unit Q8HR KHARI Administration Hydrophilic Ointment 1 applic 12/02/21 17:32 Lip Therapy Vaseline TP Q2HR PRN Dry Lips Sodium Bicarbonate 150 meq/ 1,150 mls @ 100 mls/hr 12/02/21 10:00 12/03/21 08:22 Dextrose IV 100 mls/hr DIRECT [facility] Administration Cefepime HCl 1 gm in 100 mls @ 200 mls/hr 12/02/21 18:00 Cefepime/Ns 1 Gm/100 Ml IV QPM [facility] Protocol Propofol 1,000 mg in 100 mls @ 1.839 mls/hr 12/02/21 18:00 12/03/21 06:08 Diprivan 10 Mg/Ml IV 10 mcg/kg/min TITR KHARI 3.678 mls/hr Administration Protocol 5 MCG/KG/MIN Insulin Human Lispro 0 unit 12/03/21 00:00 12/03/21 06:22 Insulin Lispro 100 Unit/Ml SUB-Q Not Given Q6HR [facility] Protocol Levalbuterol HCl 0.63 mg 12/02/21 10:00 Levalbuterol 0.63 Mg/3 Ml Nebu IH Q8HRT PRN Shortness Of Breath Lorazepam 1 mg 12/02/21 14:22 12/02/21 15:18 Lorazepam 2 Mg/Ml Vial IV 1 mg Q6H PRN Administration Agitation Magnesium Hydroxide 30 ml 12/02/21 04:37 Magnesium Hydroxide (Mom) Oral Liqd Udc PO Q4H PRN Constipation Metoprolol Tartrate 25 mg 12/02/21 15:00 12/02/21 15:18 Metoprolol Tartrate 25 Mg Tab PO 25 mg QDAY [facility] Administration Morphine Sulfate 2 mg 12/02/21 04:37 Morphine 2 Mg/1 Ml Inj IV Q4H PRN Pain, Moderate (4-6) Morphine Sulfate 4 mg 12/02/21 04:37 Morphine 4 Mg/1 Ml Inj IV Q4H PRN Pain , Severe (7-10) Multi-Ingred Cream/Lotion/Oil/Oint 1 applic 12/02/21 17:32 Mineral Oil/Petrolatum, White Ophth Oint 3.5 Gm OU Q4HR PRN Dry Eye(s) Ondansetron HCl 4 mg 12/02/21 04:37 Ondansetron 4 Mg/2 Ml Inj IV Q8H PRN Nausea And Vomiting Pravastatin Sodium 80 mg 12/02/21 22:00 12/03/21 01:05 Pravastatin 80 Mg Tab PO 80 mg QHS KHARI Administration Senna/Docusate Sodium 1 tab 12/02/21 22:00 12/02/21 21:21 Sennosides/Docusate Sodium 8.6/50 Mg Tab FEEDTUBE 1 tab BID KHARI Administration Sodium Chloride 10 ml 12/02/21 10:00 12/02/21 21:22 Sodium Chloride 0.9% 10 Ml Flush Syringe IV 10 ml BID KHARI Administration Sodium Chloride 10 ml 12/02/21 04:37 Sodium Chloride 0.9% 10 Ml Flush Syringe IV PRN PRN LINE FLUSH
[2021-12-03] MEDS: FAMOTIDINE 20 MG/2 ML INJ IV SCH ×2 (13:07→21:58)
[2021-12-03] MEDS: METOPROLOL TARTRATE 25 MG TAB PO SCH (13:07)
[2021-12-03] MEDS: CLOPIDOGREL 75 MG TAB PO SCH (13:07)
[2021-12-03] MEDS: ASPIRIN 81 MG TAB CHEW PO SCH (13:07)
[2021-12-03] MEDS: amLODIPine 10 MG TAB PO SCH (13:08)
--- NOTE | 2021-12-03 14:02 | Progress Note ---
Assessment and Plan Cultures: 12/02/2021 blood culture: no growth COVID-19 PCR: negative. A/P: 86-year-old female with hypertension, diabetes, peripheral vascular disease, prior right AKA admitted with shortness of breath: #Severe sepsis, secondary to pneumonia, acute respiratory failure: on the vent. #Severe metabolic acidosis, lactic acidosis #Acute renal failure: Renally adjust antibiotics #Acute encephalopathy: Likely metabolic. Recs: -Continue renally adjusted IV cefepime, vancomycin -Follow-up blood, urine and sputum cultures Elizabeth Lane MD, FACP, [facility] O: [phone] F: [phone] Subjective Date of service: 12/03/21 Interval history: Afebrile. Now intubated, on the vent. Objective - Exam Narrative Exam: Physical Exam: Constitutional: sedated, intubated, on the vent Head, Ears, Nose: Normocephalic, atraumatic. External ears, nose normal Eyes: Conjunctivae/corneas clear. No icterus. No ptosis. Neck: intubated Oral: intubated Cardiovascular: S1, S2 + Respiratory: AE fair bilaterally and equal GI: Soft, bowel sounds + Musculoskeletal: No pedal edema, no cyanosis. Skin: No rash or abscess Hem/Lymphatic: No palpable cervical or supraclavicular nodes. No lymphangitis Psych: no agitation Neurological: sedated, intubated, on the vent, exam limited - Constitutional Vitals: Vital Signs Temp Pulse Resp BP Pulse Ox 98.5 F 126 H 22 153/78 97 12/03/21 12:00 12/03/21 13:07 12/03/21 12:00 12/03/21 13:07 12/03/21 12:30 Temperature -Last 24 Hours Temperature 98.5 F Temperature 98.5 F Temperature 98.4 F Temperature 97.8 F Temperature 99.4 F Temperature 97.6 F - Labs CBC & Chem 7: 12/03/21 04:00 12/03/21 04:00 Labs: Abnormal lab results 12/02/21 12/02/21 12/02/21 Range/Units 00:52 00:52 13:51 RDW (13.2-15.2) % Lymphocytes % (Manual) (13.4-35.0) % Lymphocytes # (Manual) (1.2-5.4) K/mm3 ABG pH (7.350-7.450) pH Units ABG pO2 (80.0-90.0) mm Hg ABG HCO3 (20.0-26.0) mmol/L ABG Base Excess (-2.0-3.0) mmol/L ABG Hemoglobin (12.0-16.0) gm/dl Sodium (137-145) mmol/L Potassium (3.6-5.0) mmol/L Carbon Dioxide (22-30) mmol/L BUN (7-17) mg/dL Creatinine (0.6-1.2) mg/dL Glucose (65-100) mg/dL POC Glucose (70-105) mg/dL Lactic Acid 11.70 H* (0.7-2.0) mmol/L Calcium (8.4-10.2) mg/dL Troponin T (0.00-0.029) ng/mL Urine WBC (Auto) 27.0 H (0.0-6.0) /HPF Urine Creatinine 24.4 H (0.1-20.0) mg/dL Urine Total Protein 111 H (5-11.8) mg/dL 12/02/21 12/02/21 12/02/21 Range/Units 13:51 20:31 22:56 RDW (13.2-15.2) % Lymphocytes % (Manual) (13.4-35.0) % Lymphocytes # (Manual) (1.2-5.4) K/mm3 ABG pH (7.350-7.450) pH Units ABG pO2 156.2 H (80.0-90.0) mm Hg ABG HCO3 15.4 L (20.0-26.0) mmol/L ABG Base Excess -8.7 L (-2.0-3.0) mmol/L ABG Hemoglobin (12.0-16.0) gm/dl Sodium 147 H (137-145) mmol/L Potassium 3.4 L (3.6-5.0) mmol/L Carbon Dioxide 18 L D (22-30) mmol/L BUN 59 H (7-17) mg/dL Creatinine 6.2 H (0.6-1.2) mg/dL Glucose 150 H (65-100) mg/dL POC Glucose (70-105) mg/dL Lactic Acid (0.7-2.0) mmol/L Calcium 8.3 L (8.4-10.2) mg/dL Troponin T 2.500 H* (0.00-0.029) ng/mL Urine WBC (Auto) (0.0-6.0) /HPF Urine Creatinine (0.1-20.0) mg/dL Urine Total Protein (5-11.8) mg/dL 12/02/21 12/03/21 12/03/21 Range/Units 22:56 00:25 00:42 RDW (13.2-15.2) % Lymphocytes % (Manual) (13.4-35.0) % Lymphocytes # (Manual) (1.2-5.4) K/mm3 ABG pH (7.350-7.450) pH Units ABG pO2 (80.0-90.0) mm Hg ABG HCO3 (20.0-26.0) mmol/L ABG Base Excess (-2.0-3.0) mmol/L ABG Hemoglobin (12.0-16.0) gm/dl Sodium (137-145) mmol/L Potassium (3.6-5.0) mmol/L Carbon Dioxide (22-30) mmol/L BUN (7-17) mg/dL Creatinine (0.6-1.2) mg/dL Glucose (65-100) mg/dL POC Glucose 150 H (70-105) mg/dL Lactic Acid 6.10 H* 5.80 H* (0.7-2.0) mmol/L Calcium (8.4-10.2) mg/dL Troponin T (0.00-0.029) ng/mL Urine WBC (Auto) (0.0-6.0) /HPF Urine Creatinine (0.1-20.0) mg/dL Urine Total Protein (5-11.8) mg/dL 12/03/21 12/03/21 12/03/21 Range/Units 04:00 04:00 06:14 RDW 15.4 H (13.2-15.2) % Lymphocytes % (Manual) 7.0 L (13.4-35.0) % Lymphocytes # (Manual) 0.4 L (1.2-5.4) K/mm3 ABG pH (7.350-7.450) pH Units ABG pO2 (80.0-90.0) mm Hg ABG HCO3 (20.0-26.0) mmol/L ABG Base Excess (-2.0-3.0) mmol/L ABG Hemoglobin (12.0-16.0) gm/dl Sodium (137-145) mmol/L Potassium 3.5 L (3.6-5.0) mmol/L Carbon Dioxide 21 L (22-30) mmol/L BUN 63 H (7-17) mg/dL Creatinine 6.3 H (0.6-1.2) mg/dL Glucose 158 H (65-100) mg/dL POC Glucose 145 H (70-105) mg/dL Lactic Acid (0.7-2.0) mmol/L Calcium 7.9 L (8.4-10.2) mg/dL Troponin T (0.00-0.029) ng/mL Urine WBC (Auto) (0.0-6.0) /HPF Urine Creatinine (0.1-20.0) mg/dL Urine Total Protein (5-11.8) mg/dL 12/03/21 12/03/21 Range/Units 08:35 12:35 RDW (13.2-15.2) % Lymphocytes % (Manual) (13.4-35.0) % Lymphocytes # (Manual) (1.2-5.4) K/mm3 ABG pH 7.533 H (7.350-7.450) pH Units ABG pO2 120.9 H (80.0-90.0) mm Hg ABG HCO3 (20.0-26.0) mmol/L ABG Base Excess (-2.0-3.0) mmol/L ABG Hemoglobin 11.9 L (12.0-16.0) gm/dl Sodium (137-145) mmol/L Potassium (3.6-5.0) mmol/L Carbon Dioxide (22-30) mmol/L BUN (7-17) mg/dL Creatinine (0.6-1.2) mg/dL Glucose (65-100) mg/dL POC Glucose 151 H (70-105) mg/dL Lactic Acid (0.7-2.0) mmol/L Calcium (8.4-10.2) mg/dL Troponin T (0.00-0.029) ng/mL Urine WBC (Auto) (0.0-6.0) /HPF Urine Creatinine (0.1-20.0) mg/dL Urine Total Protein (5-11.8) mg/dL - Imaging and cardiology Chest x-ray: report reviewed, image reviewed (mild interval worsening of airspace opacities)
--- NOTE | 2021-12-03 14:05 | Vascular Lab Report ---
DUPLEX DOPPLER LOWER EXTREMITY VEINS, BILATERAL INDICATION / CLINICAL INFORMATION: elevated D-Dimer. TECHNIQUE: Duplex doppler imaging was performed through the veins of both lower extremities using krystle ous compression and other maneuvers. COMPARISON: None available. FINDINGS: RIGHT COMMON FEMORAL VEIN: Negative. RIGHT FEMORAL VEIN: Negative through the mid femoral vein. RIGHT POPLITEAL VEIN: Right [id number] amputation. RIGHT CALF VEINS: Right [id number] amputation LEFT COMMON FEMORAL VEIN: Negative. LEFT FEMORAL VEIN: Negative. LEFT POPLITEAL VEIN: Negative. LEFT CALF VEINS: Negative. ADDITIONAL FINDINGS: None. IMPRESSION: 1. No sonographic evidence for DVT in either lower extremity. Signer Name: Kurt Lo MD Signed: 12/03/2021 2:00 PM Workstation Name: [id number]
[2021-12-03] MEDS: NITROGLYCERIN 2% OINT 1 GM TP SCH ×2 (14:12→18:24)
[2021-12-03 14:27] LABS: Bilirubin,Urine NEG (Negative); Blood,Urine MOD (Negative); Color,Urine Yellow (Yellow); Mucus,Urine FEW /HPF; Urobilinogen,Urine < 2.0 mg/dL (<2.0)
[2021-12-03 14:28] LABS: Protein,Urine >500 mg/dL (Negative)
[2021-12-03] MEDS ORDERED: VANCOMYCIN/NS 1 GM/250 ML 1 GM/250 ML BAG IV ONE (16:00)
[2021-12-03 17:13] LABS: Calcium 7.3 mg/dL (8.4-10.2)
[2021-12-03] MEDS: MORPHINE 2 MG/1 ML INJ IV PRN (17:40)
--- NOTE | 2021-12-03 18:15 | Consultation ---
History of Present Illness Consult date: 12/03/21 Requesting physician: REMBERTO RODRIGUEZ History of present illness: This is a 86-year-old AA female with known past medical history of hypertension, diabetes mellitus, PVD, and right AKA initially admitted to the floor for sepsis, ARF, and pneumonia versus pulmonary edema. Patient was a code met on 12/02 due to acute hypoxemic respiratory failure requiring intubation and ventilatory support. Patient remains intubated and sedated. This am ABG noted, continue to wean Fio2 as tolerated. Patient's renal function continue to worsen, patient currently on bcab gtt per Nephrology. Per Nephro plan for possible discussion with family, patient might require HD. Acidosis is improving continue bcarb and IV abx per ID, trend lactic acid. Past History Past Medical History: CAD, diabetes, hypertension, hyperlipidemia, PVD Past Surgical History: mastectomy (Left) Social history: smoking (Former smoker) Family history: no significant family history Medications and Allergies Allergies Allergy/AdvReac Type Severity Reaction Status Date / Time No Known Allergies Allergy Verified 04/05/19 15:30 Home Medications Medication Instructions Recorded Confirmed Last Taken Type Gabapentin 300 mg PO BID 04/05/19 04/06/19 Unknown History Metoprolol [Lopressor TAB] 25 mg PO QDAY 04/05/19 04/06/19 Unknown History Simvastatin 40 mg PO QHS 04/05/19 04/06/19 Unknown History Vitamin D2 50,000 units PO QWEEK 04/05/19 04/06/19 Unknown History amLODIPine 10 mg PO DAILY 04/05/19 04/05/19 Unknown History metFORMIN [Glucophage] 500 mg PO QHS 04/05/19 04/06/19 Unknown History raNITIdine HCl [Zantac] 300 mg PO QDAY 04/05/19 04/06/19 Unknown History Aspirin [Aspirin BABY CHEW TAB] 81 mg PO QDAY #30 tab.chew 04/12/19 Unknown Rx Clopidogrel [Plavix] 75 mg PO QDAY #30 tablet 04/12/19 Unknown Rx cilostazoL [Pletal] 50 mg PO BID #30 tablet 04/12/19 Unknown Rx oxyCODONE /ACETAMINOPHEN [Percocet 2 tab PO Q6H PRN #20 tablet 04/12/19 Unknown Rx 5/325 mg] Active Meds: Active Medications Acetaminophen (Acetaminophen 325 Mg Tab) 650 mg PO Q4H PRN PRN Reason: Pain MILD(1-3)/Fever >100.5/HYLTON Alprazolam (Alprazolam 0.5 Mg Tab) 0.5 mg PO Q8H PRN PRN Reason: Anxiety Last Admin: 12/02/21 11:38 Dose: 0.5 mg Amlodipine Besylate (Amlodipine 10 Mg Tab) 10 mg PO DAILY [facility] Last Admin: 12/03/21 13:08 Dose: 10 mg Aspirin (Aspirin 81 Mg Tab Chew) 81 mg PO QDAY [facility] Last Admin: 12/03/21 13:07 Dose: 81 mg Cilostazol (Cilostazol 100 Mg Tab) 50 mg PO BID [facility] Last Admin: 12/03/21 01:05 Dose: 50 mg Clopidogrel Bisulfate (Clopidogrel 75 Mg Tab) 75 mg PO QDAY [facility] Last Admin: 12/03/21 13:07 Dose: 75 mg Dextrose (Dextrose 10% *Hypoglycemia) 0 ml IV PRN PRN; Protocol PRN Reason: Hypoglycemia Famotidine (Famotidine 20 Mg/2 Ml Inj) 20 mg IV BID [facility] Last Admin: 12/03/21 13:07 Dose: 20 mg Heparin Sodium (Porcine) (Heparin 5,000 Unit/1 Ml Vial) 5,000 unit SUB-Q Q8HR [facility] Last Admin: 12/03/21 14:13 Dose: 5,000 unit Hydrophilic Ointment (Lip Therapy Vaseline) 1 applic TP Q2HR PRN PRN Reason: Dry Lips Sodium Bicarbonate 150 meq/ (Dextrose) 1,150 mls @ 100 mls/hr IV DIRECT [facility] Last Admin: 12/03/21 08:22 Dose: 100 mls/hr Cefepime HCl (Cefepime/Ns 1 Gm/100 Ml) 1 gm in 100 mls @ 200 mls/hr IV QPM [facility]; Protocol Propofol (Diprivan 10 Mg/Ml) 1,000 mg in 100 mls @ 1.839 mls/hr IV TITR [facility]; Protocol Last Titration: 12/03/21 13:40 Dose: 10 mcg/kg/min, 3.678 mls/hr Insulin Human Lispro (Insulin Lispro 100 Unit/Ml) 0 unit SUB-Q Q6HR [facility]; Protocol Last Admin: 12/03/21 06:22 Dose: Not Given Levalbuterol HCl (Levalbuterol 0.63 Mg/3 Ml Nebu) 0.63 mg IH Q8HRT PRN PRN Reason: Shortness Of Breath Lorazepam (Lorazepam 2 Mg/Ml Vial) 1 mg IV Q6H PRN PRN Reason: Agitation Last Admin: 12/02/21 15:18 Dose: 1 mg Magnesium Hydroxide (Magnesium Hydroxide (Mom) Oral Liqd Udc) 30 ml PO Q4H PRN PRN Reason: Constipation Metoprolol Tartrate (Metoprolol Tartrate 25 Mg Tab) 25 mg PO QDAY [facility] Last Admin: 12/03/21 13:07 Dose: 25 mg Morphine Sulfate (Morphine 2 Mg/1 Ml Inj) 2 mg IV Q4H PRN PRN Reason: Pain, Moderate (4-6) Last Admin: 12/03/21 17:40 Dose: 2 mg Morphine Sulfate (Morphine 4 Mg/1 Ml Inj) 4 mg IV Q4H PRN PRN Reason: Pain , Severe (7-10) Multi-Ingred Cream/Lotion/Oil/Oint (Mineral Oil/Petrolatum, White Ophth Oint 3.5 Gm) 1 applic OU Q4HR PRN PRN Reason: Dry Eye(s) Nitroglycerin (Nitroglycerin 2% Oint 1 Gm) 1 inch TP QIDNTG [facility]; Protocol Last Admin: 12/03/21 14:12 Dose: 1 inch Ondansetron HCl (Ondansetron 4 Mg/2 Ml Inj) 4 mg IV Q8H PRN PRN Reason: Nausea And Vomiting Pravastatin Sodium (Pravastatin 80 Mg Tab) 80 mg PO QHS [facility] Last Admin: 12/03/21 01:05 Dose: 80 mg Senna/Docusate Sodium (Sennosides/Docusate Sodium 8.6/50 Mg Tab) 1 tab FEEDTUBE BID [facility] Last Admin: 12/03/21 12:13 Dose: 1 tab Sodium Chloride (Sodium Chloride 0.9% 10 Ml Flush Syringe) 10 ml IV BID [facility] Last Admin: 12/03/21 13:08 Dose: 10 ml Sodium Chloride (Sodium Chloride 0.9% 10 Ml Flush Syringe) 10 ml IV PRN PRN PRN Reason: LINE FLUSH Review of Systems ROS unobtainable: due to endotracheal tube, due to mental status Physical Examination Vital signs: Vital Signs Pulse Ox 95 12/02/21 00:46 General appearance: Present: no acute distress, other (Intubated and Sedated) - EENT Eyes: Present: PERRL Left mastectomy scar RIJ CVL NGT in nares - Respiratory Respiratory effort: normal Respiratory: bilateral: diminished - Cardiovascular Rhythm: regular Heart Sounds: Present: S1 & S2 - Extremities Extremities: no ischemia, pulses intact, pulses symmetrical s/p right AKA Extremity abnormal: edema - Peripheral Assessment Generalized Edema Type: Non-pitting Edema Degree: 1+ Capillary Refill: < 3 seconds Skin Temperature: Warm Peripheral Pulses: within normal limits - Abdominal General gastrointestinal: soft, non-distended, normal bowel sounds Palacio in place - Integumentary Integumentary: Present: warm, dry - Psychiatric Psychiatric: other (Intubated and Sedated) - Neurologic Neurologic: other (Intubated and Sedated) Results - Laboratory Findings CBC and BMP: 12/07/21 04:00 12/07/21 04:00 ABG ABG pH 7.533 pH Units (7.350-7.450) H 12/03/21 08:35 ABG pCO2 27.0 mm Hg 12/03/21 08:35 ABG pO2 120.9 mm Hg (80.0-90.0) H 12/03/21 08:35 ABG O2 Saturation 98.6 % (95.0-99.0) 12/03/21 08:35 PT/INR, D-dimer PT 15.9 Sec. (12.2-14.9) H 12/02/21 01:24 INR 1.15 (0.87-1.13) H 12/02/21 01:24 D-Dimer 1461.68 ng/mlDDU (0-234) H 12/02/21 04:18 Abnormal lab findings: Abnormal Labs 12/02/21 12/02/21 12/02/21 00:52 00:52 01:24 WBC 15.4 H RDW 15.8 H Lymph % (Auto) 6.3 L Mcdonald % (Auto) 11.7 H Lymph # (Auto) 1.0 L Mcdonald # (Auto) 1.8 H Seg Neutrophils % 81.8 H Lymphocytes % (Manual) Seg Neutrophils # 12.6 H Lymphocytes # (Manual) PT INR D-Dimer ABG pH ABG pO2 ABG HCO3 ABG Base Excess ABG Hemoglobin VBG pH Sodium Potassium Chloride Carbon Dioxide BUN Creatinine Glucose POC Glucose Lactic Acid Calcium AST ALT Lactate Dehydrogenase Total Creatine Kinase CK-MB (CK-2) CK-MB (CK-2) Rel Index Troponin T C-Reactive Protein NT-Pro-B Natriuret Pep HDL Cholesterol Urine WBC (Auto) 27.0 H Urine Creatinine 24.4 H Urine Total Protein 111 H 12/02/21 12/02/21 12/02/21 01:24 01:24 01:24 WBC RDW Lymph % (Auto) Mcdonald % (Auto) Lymph # (Auto) Mcdonald # (Auto) Seg Neutrophils % Lymphocytes % (Manual) Seg Neutrophils # Lymphocytes # (Manual) PT 15.9 H INR 1.15 H D-Dimer ABG pH ABG pO2 ABG HCO3 ABG Base Excess ABG Hemoglobin VBG pH Sodium Potassium 3.5 L Chloride Carbon Dioxide 4 L* BUN 43 H Creatinine 5.1 H Glucose 239 H POC Glucose Lactic Acid 15.70 H* Calcium AST 86 H ALT 69 H Lactate Dehydrogenase Total Creatine Kinase 254 H CK-MB (CK-2) 20.2 H CK-MB (CK-2) Rel Index 7.9 H Troponin T C-Reactive Protein NT-Pro-B Natriuret Pep HDL Cholesterol Urine WBC (Auto) Urine Creatinine Urine Total Protein 12/02/21 12/02/21 12/02/21 01:24 01:24 04:18 WBC RDW Lymph % (Auto) Mcdonald % (Auto) Lymph # (Auto) Mcdonald # (Auto) Seg Neutrophils % Lymphocytes % (Manual) Seg Neutrophils # Lymphocytes # (Manual) PT INR D-Dimer 1461.68 H ABG pH ABG pO2 ABG HCO3 ABG Base Excess ABG Hemoglobin VBG pH 7.167 L* Sodium Potassium Chloride Carbon Dioxide BUN Creatinine Glucose POC Glucose Lactic Acid Calcium AST ALT Lactate Dehydrogenase Total Creatine Kinase CK-MB (CK-2) CK-MB (CK-2) Rel Index Troponin T 2.600 H* C-Reactive Protein NT-Pro-B Natriuret Pep > 3500 H HDL Cholesterol 74 H Urine WBC (Auto) Urine Creatinine Urine Total Protein 12/02/21 12/02/21 12/02/21 04:18 04:18 10:47 WBC RDW Lymph % (Auto) Mcdonald % (Auto) Lymph # (Auto) Mcdonald # (Auto) Seg Neutrophils % Lymphocytes % (Manual) Seg Neutrophils # Lymphocytes # (Manual) PT INR D-Dimer ABG pH ABG pO2 ABG HCO3 ABG Base Excess ABG Hemoglobin VBG pH Sodium Potassium Chloride Carbon Dioxide 7 L* BUN 51 H Creatinine 5.9 H Glucose 255 H 224 H POC Glucose Lactic Acid 15.40 H* Calcium AST ALT Lactate Dehydrogenase 958 H Total Creatine Kinase CK-MB (CK-2) CK-MB (CK-2) Rel Index Troponin T C-Reactive Protein 6.60 H NT-Pro-B Natriuret Pep HDL Cholesterol Urine WBC (Auto) Urine Creatinine Urine Total Protein 12/02/21 12/02/21 12/02/21 10:53 13:51 13:51 WBC RDW Lymph % (Auto) Mcdonald % (Auto) Lymph # (Auto) Mcdonald # (Auto) Seg Neutrophils % Lymphocytes % (Manual) Seg Neutrophils # Lymphocytes # (Manual) PT INR D-Dimer ABG pH ABG pO2 ABG HCO3 ABG Base Excess ABG Hemoglobin VBG pH Sodium Potassium Chloride Carbon Dioxide BUN Creatinine Glucose POC Glucose 194 H Lactic Acid 11.70 H* Calcium AST ALT Lactate Dehydrogenase Total Creatine Kinase CK-MB (CK-2) CK-MB (CK-2) Rel Index Troponin T 2.500 H* C-Reactive Protein NT-Pro-B Natriuret Pep HDL Cholesterol Urine WBC (Auto) Urine Creatinine Urine Total Protein 12/02/21 12/02/21 12/02/21 20:31 22:56 22:56 WBC RDW Lymph % (Auto) Mcdonald % (Auto) Lymph # (Auto) Mcdonald # (Auto) Seg Neutrophils % Lymphocytes % (Manual) Seg Neutrophils # Lymphocytes # (Manual) PT INR D-Dimer ABG pH ABG pO2 156.2 H ABG HCO3 15.4 L ABG Base Excess -8.7 L ABG Hemoglobin VBG pH Sodium 147 H Potassium 3.4 L Chloride Carbon Dioxide 18 L D BUN 59 H Creatinine 6.2 H Glucose 150 H POC Glucose Lactic Acid 6.10 H* Calcium 8.3 L AST ALT Lactate Dehydrogenase Total Creatine Kinase CK-MB (CK-2) CK-MB (CK-2) Rel Index Troponin T C-Reactive Protein NT-Pro-B Natriuret Pep HDL Cholesterol Urine WBC (Auto) Urine Creatinine Urine Total Protein 02/16/22 02/16/22 02/16/22 00:25 00:42 04:00 WBC RDW 15.4 H Lymph % (Auto) Mcdonald % (Auto) Lymph # (Auto) Mcdonald # (Auto) Seg Neutrophils % Lymphocytes % (Manual) 7.0 L Seg Neutrophils # Lymphocytes # (Manual) 0.4 L PT INR D-Dimer ABG pH ABG pO2 ABG HCO3 ABG Base Excess ABG Hemoglobin VBG pH Sodium Potassium Chloride Carbon Dioxide BUN Creatinine Glucose POC Glucose 150 H Lactic Acid 5.80 H* Calcium AST ALT Lactate Dehydrogenase Total Creatine Kinase CK-MB (CK-2) CK-MB (CK-2) Rel Index Troponin T C-Reactive Protein NT-Pro-B Natriuret Pep HDL Cholesterol Urine WBC (Auto) Urine Creatinine Urine Total Protein 12/03/21 12/03/21 12/03/21 04:00 06:14 08:35 WBC RDW Lymph % (Auto) Mcdonald % (Auto) Lymph # (Auto) Mcdonald # (Auto) Seg Neutrophils % Lymphocytes % (Manual) Seg Neutrophils # Lymphocytes # (Manual) PT INR D-Dimer ABG pH 7.533 H ABG pO2 120.9 H ABG HCO3 ABG Base Excess ABG Hemoglobin 11.9 L VBG pH Sodium Potassium 3.5 L Chloride Carbon Dioxide 21 L BUN 63 H Creatinine 6.3 H Glucose 158 H POC Glucose 145 H Lactic Acid Calcium 7.9 L AST ALT Lactate Dehydrogenase Total Creatine Kinase CK-MB (CK-2) CK-MB (CK-2) Rel Index Troponin T C-Reactive Protein NT-Pro-B Natriuret Pep HDL Cholesterol Urine WBC (Auto) Urine Creatinine Urine Total Protein 12/03/21 12/03/21 12/03/21 12:35 13:48 15:51 WBC RDW Lymph % (Auto) Mcdonald % (Auto) Lymph # (Auto) Mcdonald # (Auto) Seg Neutrophils % Lymphocytes % (Manual) Seg Neutrophils # Lymphocytes # (Manual) PT INR D-Dimer ABG pH ABG pO2 ABG HCO3 ABG Base Excess ABG Hemoglobin VBG pH Sodium Potassium Chloride Carbon Dioxide BUN Creatinine Glucose POC Glucose 151 H 168 H Lactic Acid Calcium AST ALT Lactate Dehydrogenase Total Creatine Kinase CK-MB (CK-2) CK-MB (CK-2) Rel Index Troponin T C-Reactive Protein NT-Pro-B Natriuret Pep HDL Cholesterol Urine WBC (Auto) 9.0 H Urine Creatinine Urine Total Protein 12/03/21 12/03/21 16:20 16:35 WBC RDW Lymph % (Auto) Mcdonald % (Auto) Lymph # (Auto) Mcdonald # (Auto) Seg Neutrophils % Lymphocytes % (Manual) Seg Neutrophils # Lymphocytes # (Manual) PT INR D-Dimer ABG pH ABG pO2 ABG HCO3 ABG Base Excess ABG Hemoglobin VBG pH Sodium Potassium Chloride 92.3 L Carbon Dioxide BUN 67 H Creatinine 7.1 H Glucose 160 H POC Glucose 158 H Lactic Acid Calcium 7.3 L AST ALT Lactate Dehydrogenase Total Creatine Kinase CK-MB (CK-2) CK-MB (CK-2) Rel Index Troponin T C-Reactive Protein NT-Pro-B Natriuret Pep HDL Cholesterol Urine WBC (Auto) Urine Creatinine Urine Total Protein - Diagnostic Findings Chest x-ray: image reviewed Assessment and Plan Acute Hypoxemic Respiratory Failure of MVS Pulmonary Edema Vs Pneumonia - Code met on 12/02 was intubated Severe Sepsis Pneumonia Leukocytosis-improved Lactic Acidosis/Metabolic acidosis Acute Kidney Injury(RAYNE) most likely ATN Hypokalemia Acute Metabolic Acidosis Hypertension Elevated BNP Elevated troponin Elevated D-dimer Type 2 Diabetes mellitus - vasopressors if needed to keep > 65 mmHg - titrate supplemental oxygen SpO2 keep 89-92% - VAP bundle addressed, aspiration HOB>30 - Lung protective strategies, on PCV- monitor airway pressures closely, keep Pplat<35 -Bronchodilators with pulmonary hygiene per RT - accuchecks with glycemic control per SSI (While critically ill target blood glucose of 140-180 mg/dL; avoid hypoglycemia) - sedation prn for target RASS 0 to -1 - avoid nephrotoxins, renally dose all medications -Avoid benzodiazepines , reduce the possibility of delirium - prn analgesia per CPOT score >3 - Maintenance of sleep-wake cycle, avoid delirium - Enteral nutritional support - NGT in place, tube feeding orders - Stress ulcer and VTE prophylaxis - PT/OT/ROM exercise - Mobility, off loading, and frequent turning per facility protocol to prevent pressure ulcers - Monitor hemodynamics closely -Supportive transfusions as clinically indicated to keep HgB >7g/dL - continue other care per attending / other consultants CONDITION: CRITICAL PROGNOSIS: GUARDED CODE STATUS: FULL CODE The high probability of a clinically significant, sudden or life-threatening deterioration of the [respiratory, cardiovascular, renal & neurologic] system(s) required my full and direct attention, intervention and personal management. The aggregate critical care time was [35] minutes without overlap. Time includes spent on; [x] Data Review and interpretation [x] Patient assessment and monitoring of vital signs [x] Documentation [x] Medication orders and management
[2021-12-03] MEDS: CEFEPIME/NS 1 GM/100 ML 1 GM/100 ML BAG IV SCH (18:26)
[2021-12-04] MEDS: INSULIN LISPRO 100 UNIT/ML SUB-Q SCH ×4 (00:17→19:01)
[2021-12-04] MEDS: MORPHINE 2 MG/1 ML INJ IV PRN ×2 (00:19→10:10)
[2021-12-04 04:40] LABS: Hematocrit 28.4 % (30.3-42.9); Mean Corpuscular HGB Conc 35 % (30-34); Mean Corpuscular Volume 86 fl (79-97); Platelet Count 205 K/mm3 (140-440); Red Blood Count 3.29 M/mm3 (3.65-5.03); Red Cell Distribution Width 15.4 % (13.2-15.2)
[2021-12-04 04:52] LABS: Calcium 7.2 mg/dL (8.4-10.2)
[2021-12-04] MEDS ORDERED: METOPROLOL TARTRATE 5 MG/5 ML INJ IV ONE (04:59)
[2021-12-04] MEDS: NITROGLYCERIN 2% OINT 1 GM TP SCH ×4 (05:04→18:31)
[2021-12-04] MEDS: HEPARIN 5,000 UNIT/1 ML VIAL SUB-Q SCH ×3 (05:05→21:07)
--- NOTE | 2021-12-04 05:34 | XRay Report ---
CHEST 1 VIEW INDICATION / CLINICAL INFORMATION: follow up respiratory failure. COMPARISON: Chest x-ray 12/03/2021 FINDINGS: SUPPORT DEVICES: Stable, satisfactory device positioning. HEART / MEDIASTINUM: Unchanged LUNGS / PLEURA: Diffuse lung opacities right perihilar region and left lung base and indistinct hemid iaphragm right lung base demonstrate minimal change. No pneumothorax. ADDITIONAL FINDINGS: No significant additional findings. IMPRESSION: 1. No significant change. Signer Name: Ortega Neumann II, MD Signed: 12/04/2021 5:30 AM Workstation Name: [id number]
--- NOTE | 2021-12-04 09:38 | Ultrasound Report ---
ULTRASOUND RENAL INDICATION / CLINICAL INFORMATION: RAYNE. COMPARISON: 12/02/2021 FINDINGS: RIGHT KIDNEY: Length = 9.7 cm. - Echogenicity: Normal. - Cortical Thickness: Normal. - Hydronephrosis: None. - Cyst / Mass: None. - Stones: None seen. LEFT KIDNEY: Length = 9.8 cm. - Echogenicity: Normal. - Cortical Thickness: Normal. - Hydronephrosis: None. - Cyst / Mass: None. - Stones: None seen. URINARY BLADDER: No significant abnormality. FREE FLUID: None. ADDITIONAL FINDINGS: None. IMPRESSION: 1. No significant abnormality. Signer Name: Nikita Hernandez DO Signed: 12/04/2021 9:33 AM Workstation Name: [email or web address]
[2021-12-04] MEDS: CILOSTAZOL 100 MG TAB PO SCH ×2 (10:07→21:08)
[2021-12-04] MEDS: ASPIRIN 81 MG TAB CHEW PO SCH (10:07)
[2021-12-04] MEDS: CLOPIDOGREL 75 MG TAB PO SCH (10:07)
[2021-12-04] MEDS: SENNOSIDES/DOCUSATE SODIUM 8.6/50 MG TAB FEEDTUBE SCH ×2 (10:07→21:08)
[2021-12-04] MEDS: METOPROLOL TARTRATE 25 MG TAB PO SCH (10:08)
[2021-12-04] MEDS: amLODIPine 10 MG TAB PO SCH (10:08)
[2021-12-04] MEDS ORDERED: FAMOTIDINE 20 MG/2 ML INJ IV SCH (10:15)
[2021-12-04 11:05] LABS: ABG Base Excess 6.6 mmol/L (-2.0-3.0); ABG HCO3 30.1 mmol/L (20.0-26.0); ABG Methemoglobin 0.8 % (0.0-1.5); ABG Oxygen Saturation 75.1 % (95.0-99.0); ABG PCO2 39.2 mm Hg; ABG PH 7.504 pH Units (7.350-7.450); ABG PO2 40.8 mm Hg (80.0-90.0)
--- NOTE | 2021-12-04 12:18 | Progress Note ---
<KELLEY LIZ - Last Filed: 12/04/21 15:04> Assessment and Plan Assessment and plan: This is a 86-year-old AA female with known past medical history of hypertension, diabetes mellitus, PVD, and right AKA initially admitted to the floor for sepsis, ARF, and pneumonia versus pulmonary edema. Patient was a code met on 11/18 due to acute hypoxemic respiratory failure requiring intubation and ventilatory support. Hospital Course to Date: 12/03: Patient remains intubated and sedated. This am ABG noted, continue to wean Fio2 as tolerated. Patient's renal function continue to worsen, patient cur rently on bcab gtt per Nephrology. Per Nephro plan for possible discussion with family, patient might require HD. Acidosis is improving continue bcarb and IV abx per ID, trend lactic acid. 12/04: Overnight events noted, remains ST in the 110s this am, BP stable. Renal function continue to worsen, per nursing staff patient's POA is leaning towards HD. Plan for possible family meeting to further discuss patient's goal of care. This am ABG noted, most likely venous, SPO2 is 100%, tolerating vent. Continue to wean Fio2 as tolerated. Assessment and Plan #Acute Hypoxemic Respiratory Failure #Pulmonary Edema Vs #Pneumonia - Code met on 12/02 was intubated - Vent setting:A/C-60%,8,20 PS-20 - This am ABG noted, most likely venous - CCM consulted, appreciate recommendations - Continue IV ABx and Nebs per CCM - VAP bundle addressed - Aspiration precaution HOB above 30 - Daily SBT and SAT trials as tolerated - Daily ABG and CXR - Continue SPO2 monitoring for SPO2 goal above 92% #Severe Sepsis #Pneumonia #Leukocytosis-improved #Lactic Acidosis/Metabolic acidosis - Imaging with bilateral pulmonary opacities - Presented with severe acidosis and leukocytosis - Patient remains aferbile - COVID PCR negative - Blood culture and sputum culture pendikng - ID is on consult - Continue current IV Abx per ID - Continue to F/U on B.cult - Daily CBC monitor #Acute Kidney Injury(RAYNE) most likely ATN #Hypokalemia - No history of CKD per family - Renal function continue to worse, patient family wants HHD - Nephrology on consult, appreciated recommendation - Plan for possible family meeting to further discuss GOC - Strict intake and output - Palacio in place with oliguria - Per Nephro patient might need HD - Avoid nephrotoxic medications; Renally dose medications - Monitor and replace electrolytes as needed - Trend BMP #Acute Metabolic Acidosis - Probably due to severe acidosis - Continue sedation for RASS goal of 0 to -2 - Avoid benzodiazepine to reduce the possibility of delirium - Prn analgesia for CPOT greater than 3 - Maintenance of sleep-wake cycle #Hypertension #Elevated BNP #Elevated troponin - BNP >2000 ; troponin 2.000 - could also be secondary to renal failure - 12/02 2D Echo EF 30-35% - Cardiology on consult, appreciated recommendations - No diuretic due to kidney function - Home meds resumed - Continue blood pressure monitor per protocol #Elevated D-dimer - COVID PCR negatine - BLE doppler pending - Continue SubQ heparin #Type 2 Diabetes mellitus - Continue SSI Q6hrs - Avoid Hypoglycemia - While critically ill target blood glucose of 140-180 #GI/DVT Prophylaxis - PPI- Pepcid - Continue AC- Heparin SubQ The high probability of a clinically significant, sudden or life threatening deterioration of the [multiple] system(s) required my full and direct attention, intervention and personal management. The aggregate critical care time was [60] minutes. This time is in addition to time spent performing reported procedures but includes the following: [x] Data Review and interpretation [x] Patient assessment and monitoring of vital signs [x] Documentation [x] Medication orders and management Disposition Plan: ICU Total Time Spent with Patient (Minutes): 60 History Interval history: Patient seen and examined at the bedside. Intubated and sedated on propofol. Received X1 dose of IV Lopressor overnight for tachycardia, HR in the 130 while sleeping. Remains in ST this am, HR in the 110s, BP stable. Hospitalist Physical - Constitutional Vitals: Temp Pulse Resp BP Pulse Ox 98.9 F 102 H 20 135/60 98 12/04/21 11:36 12/04/21 11:25 12/04/21 08:00 12/04/21 11:25 12/04/21 11:25 General appearance: Present: no acute distress, other (Intubated and Sedated) - EENT Eyes: Present: PERRL - Respiratory Respiratory effort: normal Respiratory: bilateral: diminished - Cardiovascular Rhythm: regular Heart Sounds: Present: S1 & S2 - Extremities Extremities: no ischemia, pulses intact, pulses symmetrical Extremity abnormal: edema - Peripheral Assessment Generalized Edema Type: Non-pitting Edema Degree: 1+ Capillary Refill: < 3 seconds Skin Temperature: Warm Peripheral Pulses: within normal limits - Abdominal General gastrointestinal: soft, non-distended, normal bowel sounds - Integumentary Integumentary: Present: warm, dry - Psychiatric Psychiatric: other (Intubated and Sedated) - Neurologic Neurologic: other (Intubated and Sedated) - Allied Health Allied health notes reviewed: nursing HEART Score - HEART Score Troponin: Troponin T 2.500 ng/mL (0.00-0.029) H* 12/02/21 13:51 Results - Labs CBC & Chem 7: 12/04/21 04:18 12/04/21 04:18 Labs: Laboratory Last Values WBC 10.9 K/mm3 (4.5-11.0) 12/04/21 04:18 RBC 3.29 M/mm3 (3.65-5.03) L 12/04/21 04:18 Hgb 10.0 gm/dl (10.1-14.3) L 12/04/21 04:18 Hct 28.4 % (30.3-42.9) L D 12/04/21 04:18 MCV 86 fl (79-97) 12/04/21 04:18 MCH 30 pg (28-32) 12/04/21 04:18 MCHC 35 % (30-34) H 12/04/21 04:18 RDW 15.4 % (13.2-15.2) H 12/04/21 04:18 Plt Count 205 K/mm3 (140-440) 12/04/21 04:18 Lymph % (Auto) 6.3 % (13.4-35.0) L 12/02/21 01:24 [place] % (Auto) 11.7 % (0.0-7.3) H 12/02/21 01:24 Eos % (Auto) 0.0 % (0.0-4.3) 12/02/21 01:24 Baso % (Auto) 0.2 % (0.0-1.8) 12/02/21 01:24 Lymph # (Auto) 1.0 K/mm3 (1.2-5.4) L 12/02/21 01:24 [place] # (Auto) 1.8 K/mm3 (0.0-0.8) H 12/02/21 01:24 Eos # (Auto) 0.0 K/mm3 (0.0-0.4) 12/02/21 01:24 Baso # (Auto) 0.0 K/mm3 (0.0-0.1) 12/02/21 01:24 Add Manual Diff Complete 12/03/21 04:00 Total Counted 100 12/03/21 04:00 Seg Neutrophils % 81.8 % (40.0-70.0) H 12/02/21 01:24 Seg Neuts % (Manual) 67.0 % (40.0-70.0) 12/03/21 04:00 Band Neutrophils % 18.0 % 12/03/21 04:00 Lymphocytes % (Manual) 7.0 % (13.4-35.0) L 12/03/21 04:00 Reactive Lymphs % (Man) 0 % 12/03/21 04:00 Monocytes % (Manual) 3.0 % (0.0-7.3) 12/03/21 04:00 Eosinophils % (Manual) 0 % (0.0-4.3) 12/03/21 04:00 Basophils % (Manual) 0 % (0.0-1.8) 12/03/21 04:00 Metamyelocytes % 4.0 % 12/03/21 04:00 Myelocytes % 1.0 % 12/03/21 04:00 Promyelocytes % 0 % 12/03/21 04:00 Blast Cells % 0 % 12/03/21 04:00 Nucleated RBC % Not Reportable 12/03/21 04:00 Seg Neutrophils # 12.6 K/mm3 (1.8-7.7) H 12/02/21 01:24 Seg Neutrophils # Man 4.1 K/mm3 (1.8-7.7) 12/03/21 04:00 Band Neutrophils # 1.1 K/mm3 12/03/21 04:00 Lymphocytes # (Manual) 0.4 K/mm3 (1.2-5.4) L 12/03/21 04:00 Abs React Lymphs (Man) 0.0 K/mm3 12/03/21 04:00 Monocytes # (Manual) 0.2 K/mm3 (0.0-0.8) 12/03/21 04:00 Eosinophils # (Manual) 0.0 K/mm3 (0.0-0.4) 12/03/21 04:00 Basophils # (Manual) 0.0 K/mm3 (0.0-0.1) 12/03/21 04:00 Metamyelocytes # 0.2 K/mm3 12/03/21 04:00 Myelocytes # 0.1 K/mm3 12/03/21 04:00 Promyelocytes # 0.0 K/mm3 12/03/21 04:00 Blast Cells # 0.0 K/mm3 12/03/21 04:00 WBC Morphology Not Reportable 12/03/21 04:00 Hypersegmented Neuts Not Reportable 12/03/21 04:00 Hyposegmented Neuts Not Reportable 12/03/21 04:00 Hypogranular Neuts Not Reportable 12/03/21 04:00 Smudge Cells Not Reportable 12/03/21 04:00 Toxic Granulation Not Reportable 12/03/21 04:00 Toxic Vacuolation Not Reportable 12/03/21 04:00 Dohle Bodies Not Reportable 12/03/21 04:00 Pelger-Huet Anomaly Not Reportable 12/03/21 04:00 Randee Rods Not Reportable 12/03/21 04:00 Platelet Estimate Consistent w auto 12/03/21 04:00 Clumped Platelets Few 12/03/21 04:00 Plt Clumps, EDTA Not Reportable 12/03/21 04:00 Large Platelets Few 12/03/21 04:00 Giant Platelets Not Reportable 12/03/21 04:00 Platelet Satelliting Not Reportable 12/03/21 04:00 Plt Morphology Comment Not Reportable 12/03/21 04:00 RBC Morphology Not Reportable 12/03/21 04:00 Dimorphic RBCs Not Reportable 12/03/21 04:00 Polychromasia Not Reportable 12/03/21 04:00 Hypochromasia Not Reportable 12/03/21 04:00 Poikilocytosis Not Reportable 12/03/21 04:00 Anisocytosis Not Reportable 12/03/21 04:00 Microcytosis Not Reportable 12/03/21 04:00 Macrocytosis Not Reportable 12/03/21 04:00 Spherocytes Not Reportable 12/03/21 04:00 Pappenheimer Bodies Not Reportable 12/03/21 04:00 Sickle Cells Not Reportable 12/03/21 04:00 Target Cells Not Reportable 12/03/21 04:00 Tear Drop Cells Not Reportable 12/03/21 04:00 Ovalocytes Not Reportable 12/03/21 04:00 Helmet Cells Not Reportable 12/03/21 04:00 [place] Bodies Not Reportable 12/03/21 04:00 [place] Rings Not Reportable 12/03/21 04:00 [place] Cells 1+ 12/03/21 04:00 Bite Cells Not Reportable 12/03/21 04:00 Crenated Cell Not Reportable 12/03/21 04:00 Elliptocytes Not Reportable 12/03/21 04:00 Acanthocytes (Spur) Rare 12/03/21 04:00 Rouleaux Not Reportable 12/03/21 04:00 Hemoglobin C Crystals Not Reportable 12/03/21 04:00 Schistocytes Not Reportable 12/03/21 04:00 Malaria parasites Not Reportable 12/03/21 04:00 Josemanuel Bodies Not Reportable 12/03/21 04:00 Hem Pathologist Commnt No 12/03/21 04:00 PT 15.9 Sec. (12.2-14.9) H 12/02/21 01:24 INR 1.15 (0.87-1.13) H 12/02/21 01:24 APTT 31.5 Sec. (24.2-36.6) 12/02/21 01:24 D-Dimer 1461.68 ng/mlDDU (0-234) H 12/02/21 04:18 ABG pH 7.504 pH Units (7.350-7.450) H 12/04/21 10:29 ABG pCO2 39.2 mm Hg 12/04/21 10:29 ABG pO2 40.8 mm Hg (80.0-90.0) L 12/04/21 10:29 ABG HCO3 30.1 mmol/L (20.0-26.0) H 12/04/21 10:29 ABG O2 Saturation 75.1 % (95.0-99.0) L 12/04/21 10:29 ABG O2 Content 10.5 (0.0-44) 12/04/21 10:29 ABG Base Excess 6.6 mmol/L (-2.0-3.0) H 12/04/21 10:29 ABG Hemoglobin 10.2 gm/dl (12.0-16.0) L 12/04/21 10:29 ABG Carboxyhemoglobin 1.1 % (0.0-5.0) 12/04/21 10:29 ABG Methemoglobin 0.8 % (0.0-1.5) 12/04/21 10:29 VBG pH 7.167 (7.320-7.420) L* 12/02/21 01:24 Oxyhemoglobin 73.7 % (95.0-99.0) L 12/04/21 10:29 FiO2 60 % 12/04/21 10:29 Sodium 140 mmol/L (137-145) 12/04/21 04:18 Potassium 3.5 mmol/L (3.6-5.0) L 12/04/21 04:18 Chloride 91.5 mmol/L (98-107) L 12/04/21 04:18 Carbon Dioxide 33 mmol/L (22-30) H D 12/04/21 04:18 Anion Gap 19 mmol/L 12/04/21 04:18 BUN 74 mg/dL (7-17) H 12/04/21 04:18 Creatinine 7.5 mg/dL (0.6-1.2) H 12/04/21 04:18 Estimated GFR 5 ml/min 12/04/21 04:18 BUN/Creatinine Ratio 10 % 12/04/21 04:18 Glucose 155 mg/dL (65-100) H 12/04/21 04:18 POC Glucose 146 mg/dL (70-105) H 12/04/21 11:08 Lactic Acid 4.60 mmol/L (0.7-2.0) H* 12/04/21 04:18 Calcium 7.2 mg/dL (8.4-10.2) L 12/04/21 04:18 Phosphorus 4.60 mg/dL (2.5-4.5) H 12/04/21 04:18 Magnesium 1.80 mg/dL (1.7-2.3) 12/04/21 04:18 Ferritin 168.9 ng/mL (10.0-200.0) 12/02/21 04:18 Total Bilirubin 0.40 mg/dL (0.1-1.2) 12/02/21 01:24 AST 86 units/L (5-40) H 12/02/21 01:24 ALT 69 units/L (7-56) H 12/02/21 01:24 Alkaline Phosphatase 91 units/L (35-129) 12/02/21 01:24 Lactate Dehydrogenase 958 units/L (91-180) H 12/02/21 04:18 Total Creatine Kinase 254 units/L (30-135) H 12/02/21 01:24 CK-MB (CK-2) 20.2 ng/mL (0.0-4.0) H 12/02/21 01:24 CK-MB (CK-2) Rel Index 7.9 (0-4) H 12/02/21 01:24 Troponin T 2.500 ng/mL (0.00-0.029) H* 12/02/21 13:51 C-Reactive Protein 6.60 mg/dL (0.00-1.30) H 12/02/21 04:18 NT-Pro-B Natriuret Pep > 3500 pg/mL (0-900) H 12/02/21 01:24 Total Protein 7.7 g/dL (6.3-8.2) 12/02/21 01:24 Albumin 4.0 g/dL (3.9-5) 12/02/21 01:24 Albumin/Globulin Ratio 1.1 % 12/02/21 01:24 Triglycerides 85 mg/dL (2-149) 12/02/21 01:24 Cholesterol 177 mg/dL (50-199) 12/02/21 01:24 LDL Cholesterol Direct 91 mg/dL (50-130) 12/02/21 01:24 HDL Cholesterol 74 mg/dL (40-59) H 12/02/21 01:24 Cholesterol/HDL Ratio 2.39 % 12/02/21 01:24 Procalcitonin 1.24 ng/mL (<0.15) 12/02/21 04:18 Urine Color Yellow (Yellow) 12/03/21 13:48 Urine Turbidity Hazy (Clear) 12/03/21 13:48 Urine pH 7.0 (5.0-7.0) 12/03/21 13:48 Ur Specific D Hanis 1.009 (1.003-1.030) 12/03/21 13:48 Urine Protein >500 mg/dL (Negative) 12/03/21 13:48 Urine Glucose (UA) 50 mg/dL (Negative) 12/03/21 13:48 Urine Ketones Neg mg/dL (Negative) 12/03/21 13:48 Urine Blood Mod (Negative) 12/03/21 13:48 Urine Nitrite Neg (Negative) 12/03/21 13:48 Urine Bilirubin Neg (Negative) 12/03/21 13:48 Urine Urobilinogen < 2.0 mg/dL (<2.0) 12/03/21 13:48 Ur Leukocyte Esterase Neg (Negative) 12/03/21 13:48 Urine WBC (Auto) 9.0 /HPF (0.0-6.0) H 12/03/21 13:48 Urine RBC (Auto) 5.0 /HPF (0.0-6.0) 12/03/21 13:48 U Epithel Cells (Auto) 2.0 /HPF (0-13.0) 12/03/21 13:48 Urine Bacteria (Auto) 1+ /HPF (Negative) 12/02/21 00:52 Urine Mucus Few /HPF 12/03/21 13:48 Urine Yeast (Budding) Few /HPF 12/02/21 00:52 Urine Creatinine 24.4 mg/dL (0.1-20.0) H 12/02/21 00:52 Protein/Creatinin Ratio 4.55 12/02/21 00:52 Urine Sodium 109 mmol/L 12/02/21 00:52 Urine Total Protein 111 mg/dL (5-11.8) H 12/02/21 00:52 Random Vancomycin 4.0 ug/mL (0-40.0) 12/03/21 13:48 Coronavirus (PCR) Negative (Negative) 12/02/21 09:00 Microbiology: Microbiology 12/02/21 01:46 Peripheral/Venous Blood Culture - Preliminary NO GROWTH AFTER 48 HOURS 12/02/21 01:24 Peripheral/Venous Blood Culture - Preliminary NO GROWTH AFTER 48 HOURS 12/02/21 19:48 Tracheal Aspirate Sputum Culture - Preliminary Palacio/IV: Voiding Method Indwelling Catheter Active Medications - Current Medications Current Medications: Generic Name Dose Route Start Last Admin Trade Name Freq PRN Reason Stop Dose Admin Acetaminophen 650 mg 12/02/21 04:37 Acetaminophen 325 Mg Tab PO Q4H PRN Pain MILD(1-3)/Fever >100.5/HYLTON Alprazolam 0.5 mg 12/02/21 11:30 12/02/21 11:38 Alprazolam 0.5 Mg Tab PO 0.5 mg Q8H PRN Administration Anxiety Amlodipine Besylate 10 mg 12/03/21 10:00 12/04/21 10:08 Amlodipine 10 Mg Tab PO 10 mg DAILY KHARI Administration Aspirin 81 mg 12/03/21 10:00 12/04/21 10:07 Aspirin 81 Mg Tab Chew PO 81 mg QDAY KHARI Administration Cilostazol 50 mg 12/02/21 22:00 12/04/21 10:07 Cilostazol 100 Mg Tab PO 50 mg BID KHARI Administration Clopidogrel Bisulfate 75 mg 12/03/21 10:00 12/04/21 10:07 Clopidogrel 75 Mg Tab PO 75 mg QDAY KHARI Administration Dextrose 0 ml 12/02/21 05:10 Dextrose 10% *Hypoglycemia IV PRN PRN Hypoglycemia Protocol Famotidine 10 mg 12/04/21 10:15 12/04/21 10:09 Famotidine 20 Mg/2 Ml Inj IV 10 mg BID KHARI Administration Heparin Sodium (Porcine) 5,000 unit 12/02/21 06:00 12/04/21 05:05 Heparin 5,000 Unit/1 Ml Vial SUB-Q 5,000 unit Q8HR KHARI Administration Hydrophilic Ointment 1 applic 12/02/21 17:32 Lip Therapy Vaseline TP Q2HR PRN Dry Lips Cefepime HCl 1 gm in 100 mls @ 200 mls/hr 12/02/21 18:00 12/03/21 18:56 Cefepime/Ns 1 Gm/100 Ml IV Infused QPM KHARI Infusion Protocol Propofol 1,000 mg in 100 mls @ 1.839 mls/hr 12/02/21 18:00 12/04/21 08:30 Diprivan 10 Mg/Ml IV 10 mcg/kg/min TITR KHARI 3.678 mls/hr Titration Protocol 5 MCG/KG/MIN Insulin Human Lispro 0 unit 12/03/21 00:00 12/04/21 05:03 Insulin Lispro 100 Unit/Ml SUB-Q 2 unit Q6HR KHARI Administration Protocol Levalbuterol HCl 0.63 mg 12/02/21 10:00 Levalbuterol 0.63 Mg/3 Ml Nebu IH Q8HRT PRN Shortness Of Breath Lorazepam 1 mg 12/02/21 14:22 12/02/21 15:18 Lorazepam 2 Mg/Ml Vial IV 1 mg Q6H PRN Administration Agitation Magnesium Hydroxide 30 ml 12/02/21 04:37 Magnesium Hydroxide (Mom) Oral Liqd Udc PO Q4H PRN Constipation Metoprolol Tartrate 25 mg 12/02/21 15:00 12/04/21 10:08 Metoprolol Tartrate 25 Mg Tab PO 25 mg QDAY KHARI Administration Morphine Sulfate 2 mg 12/02/21 04:37 12/04/21 10:10 Morphine 2 Mg/1 Ml Inj IV 2 mg Q4H PRN Administration Pain, Moderate (4-6) Morphine Sulfate 4 mg 12/02/21 04:37 Morphine 4 Mg/1 Ml Inj IV Q4H PRN Pain , Severe (7-10) Multi-Ingred Cream/Lotion/Oil/Oint 1 applic 12/02/21 17:32 Mineral Oil/Petrolatum, White Ophth Oint 3.5 Gm OU Q4HR PRN Dry Eye(s) Nitroglycerin 1 inch 12/03/21 14:00 12/04/21 10:08 Nitroglycerin 2% Oint 1 Gm TP 1 inch QIDNTG KHARI Administration Protocol Ondansetron HCl 4 mg 12/02/21 04:37 Ondansetron 4 Mg/2 Ml Inj IV Q8H PRN Nausea And Vomiting Pravastatin Sodium 80 mg 12/02/21 22:00 12/03/21 21:58 Pravastatin 80 Mg Tab PO 80 mg QHS KHARI Administration Senna/Docusate Sodium 1 tab 12/02/21 22:00 12/04/21 10:07 Sennosides/Docusate Sodium 8.6/50 Mg Tab FEEDTUBE 1 tab BID KHARI Administration Sodium Chloride 10 ml 12/02/21 10:00 12/04/21 10:10 Sodium Chloride 0.9% 10 Ml Flush Syringe IV 10 ml BID KHARI Administration Sodium Chloride 10 ml 12/02/21 04:37 Sodium Chloride 0.9% 10 Ml Flush Syringe IV PRN PRN LINE FLUSH Nutrition/Malnutrition Assess - Dietary Evaluation Nutrition/Malnutrition Findings: Nutrition Notes Start: 12/03/21 16:28 Freq: Status: Active Protocol: Document 12/03/21 16:29 ONI (Rec: 12/03/21 17:14 ONI [id number]) Nutrition Notes Need for Assessment generated from: Order,information technology advisor,MST Initial or Follow up Assessment Current Diagnosis Acute Kidney Injury,Diabetes, Sepsis,Hypertension, Respiratory Failure, Hyperlipidemia Other Pertinent Diagnosis Pneumonia, Metabolic Acidosis, Metabolic Encephalopathy, PVD , R-AKA. Current Diet NPO. TF-Nepro w/CARBSTEADY @ 27 ml/hr (since B 12/04). Labs/Tests 12/03: K 3.5, CO2 21, BUN 63, Crea 6.3, Glu 158. Pertinent Medications 12/03: Propofol 1000mg in 100 ml @ 3.678 ml/hr (97 Kcal), others nutritionally unremarkable. Height 5 ft 4 in Weight 61.3 kg [place] Body Weight (kg) 54.54 BMI 23.1 Intake Prior to Admission Good Weight change and time frame Pt states being unsure if loss body weight recently. Weight Status Appropriate Subjective/Other Information RD consult for skinr risk and risk of malnutrition assessments, and write/manage TF. Pt currently on NPO. Pt on Mechanical Ventilation. Pt shows no signs of concern for risk of malnutrition at the time, accordinf to Physical Assessment History notes. Pt shows no signs of concern for skin risk at the time, accordinf to Physical Assessment History notes. Pt has missing teeth, accordinf to Physical Assessment History notes. TF ordered. Percent of energy/protein needs met: Pt currently on NPO. Prescribed TF-Nepro w/ CARBSTEADY @ 27 ml/hr provides for energy/protein needs (1, 150 Kcal/52 g) -in addition, Propofol adds 97 Kcal- during LOS, 100% Kcal; 85% AA. Burn Absent Trauma Absent GI Symptoms None Food Allergy No Skin Integrity/Comment WNL. Current % PO Other Minimum of two criteria No #1 Nutrition Diagnosis Inadequate oral intake Etiology Pt on Mechanical Ventilation. As Evidenced by Signs and Symptoms Pt currently on NPO. Is patient on ventilator? Yes Is Patient Ambulatory and/or Out of Bed No REE-([facility]-confined to bed) [phone] Calculation Used for Recommendations Marina Hopper Additional Notes Protein: 1-1.2 g/Kg; 61-73 g/ day. Fluids: 1 ml/Kcal, or as per MD. Nutrition Intervention Nutrition Support: Start Nepro w/CARBSTEADY @ 27 ml/hr. Flush: 100 ml water Q 4 hr, or as per MD. Kcal 1,150 Protein (gm) 52 Carbohydrates (gm) 103 Fat (gm) 61 Fluid (mL) 465 Fiber (gm) 8 % RDI: 100% Kcal; 85% AA. Goal #1 Provide at least 75% of energy /protein needs through Enteral Feeding during LOS. Goal #2 Maintain body weight within +/ -3% of admission body weight during LOS. Follow-Up By: 12/06/21 Additional Comments Continue monitoring TF tolerance and BM. <REMBERTO RODRIGUEZ E - Last Filed: 12/05/21 07:19> Assessment and Plan Assessment and plan: I saw and evaluated the patient. I agree with the findings and the plan of care as documented in the Nurse Practitioner's~note, with the following corrections and additions. Hospitalist Physical - Constitutional Vitals: Temp Pulse Resp BP Pulse Ox 99.3 F 113 H 12 100/47 92 12/05/21 03:26 12/05/21 06:00 12/05/21 03:57 12/05/21 06:00 12/05/21 06:00 HEART Score - HEART Score Troponin: Troponin T 2.500 ng/mL (0.00-0.029) H* 12/02/21 13:51 Results - Labs CBC & Chem 7: 12/05/21 04:22 12/05/21 04:22 Labs: Laboratory Last Values WBC 12.7 K/mm3 (4.5-11.0) H 12/05/21 04:22 RBC 3.33 M/mm3 (3.65-5.03) L 12/05/21 04:22 Hgb 9.6 gm/dl (10.1-14.3) L 12/05/21 04:22 Hct 29.3 % (30.3-42.9) L 12/05/21 04:22 MCV 88 fl (79-97) 12/05/21 04:22 MCH 29 pg (28-32) 12/05/21 04:22 MCHC 33 % (30-34) 12/05/21 04:22 RDW 15.5 % (13.2-15.2) H 12/05/21 04:22 Plt Count 195 K/mm3 (140-440) 12/05/21 04:22 Lymph % (Auto) 6.3 % (13.4-35.0) L 12/02/21 01:24 [place] % (Auto) 11.7 % (0.0-7.3) H 12/02/21 01:24 Eos % (Auto) 0.0 % (0.0-4.3) 12/02/21 01:24 Baso % (Auto) 0.2 % (0.0-1.8) 12/02/21 01:24 Lymph # (Auto) 1.0 K/mm3 (1.2-5.4) L 12/02/21 01:24 [place] # (Auto) 1.8 K/mm3 (0.0-0.8) H 12/02/21 01:24 Eos # (Auto) 0.0 K/mm3 (0.0-0.4) 12/02/21 01:24 Baso # (Auto) 0.0 K/mm3 (0.0-0.1) 12/02/21 01:24 Add Manual Diff Complete 12/03/21 04:00 Total Counted 100 12/03/21 04:00 Seg Neutrophils % 81.8 % (40.0-70.0) H 12/02/21 01:24 Seg Neuts % (Manual) 67.0 % (40.0-70.0) 12/03/21 04:00 Band Neutrophils % 18.0 % 12/03/21 04:00 Lymphocytes % (Manual) 7.0 % (13.4-35.0) L 12/03/21 04:00 Reactive Lymphs % (Man) 0 % 12/03/21 04:00 Monocytes % (Manual) 3.0 % (0.0-7.3) 12/03/21 04:00 Eosinophils % (Manual) 0 % (0.0-4.3) 12/03/21 04:00 Basophils % (Manual) 0 % (0.0-1.8) 12/03/21 04:00 Metamyelocytes % 4.0 % 12/03/21 04:00 Myelocytes % 1.0 % 12/03/21 04:00 Promyelocytes % 0 % 12/03/21 04:00 Blast Cells % 0 % 12/03/21 04:00 Nucleated RBC % Not Reportable 12/03/21 04:00 Seg Neutrophils # 12.6 K/mm3 (1.8-7.7) H 12/02/21 01:24 Seg Neutrophils # Man 4.1 K/mm3 (1.8-7.7) 12/03/21 04:00 Band Neutrophils # 1.1 K/mm3 12/03/21 04:00 Lymphocytes # (Manual) 0.4 K/mm3 (1.2-5.4) L 12/03/21 04:00 Abs React Lymphs (Man) 0.0 K/mm3 12/03/21 04:00 Monocytes # (Manual) 0.2 K/mm3 (0.0-0.8) 12/03/21 04:00 Eosinophils # (Manual) 0.0 K/mm3 (0.0-0.4) 12/03/21 04:00 Basophils # (Manual) 0.0 K/mm3 (0.0-0.1) 12/03/21 04:00 Metamyelocytes # 0.2 K/mm3 12/03/21 04:00 Myelocytes # 0.1 K/mm3 12/03/21 04:00 Promyelocytes # 0.0 K/mm3 12/03/21 04:00 Blast Cells # 0.0 K/mm3 12/03/21 04:00 WBC Morphology Not Reportable 12/03/21 04:00 Hypersegmented Neuts Not Reportable 12/03/21 04:00 Hyposegmented Neuts Not Reportable 12/03/21 04:00 Hypogranular Neuts Not Reportable 12/03/21 04:00 Smudge Cells Not Reportable 12/03/21 04:00 Toxic Granulation Not Reportable 12/03/21 04:00 Toxic Vacuolation Not Reportable 12/03/21 04:00 Dohle Bodies Not Reportable 12/03/21 04:00 Pelger-Huet Anomaly Not Reportable 12/03/21 04:00 Randee Rods Not Reportable 12/03/21 04:00 Platelet Estimate Consistent w auto 12/03/21 04:00 Clumped Platelets Few 12/03/21 04:00 Plt Clumps, EDTA Not Reportable 12/03/21 04:00 Large Platelets Few 12/03/21 04:00 Giant Platelets Not Reportable 12/03/21 04:00 Platelet Satelliting Not Reportable 12/03/21 04:00 Plt Morphology Comment Not Reportable 12/03/21 04:00 RBC Morphology Not Reportable 12/03/21 04:00 Dimorphic RBCs Not Reportable 12/03/21 04:00 Polychromasia Not Reportable 12/03/21 04:00 Hypochromasia Not Reportable 12/03/21 04:00 Poikilocytosis Not Reportable 12/03/21 04:00 Anisocytosis Not Reportable 12/03/21 04:00 Microcytosis Not Reportable 12/03/21 04:00 Macrocytosis Not Reportable 12/03/21 04:00 Spherocytes Not Reportable 12/03/21 04:00 Pappenheimer Bodies Not Reportable 12/03/21 04:00 Sickle Cells Not Reportable 12/03/21 04:00 Target Cells Not Reportable 12/03/21 04:00 Tear Drop Cells Not Reportable 12/03/21 04:00 Ovalocytes Not Reportable 12/03/21 04:00 Helmet Cells Not Reportable 12/03/21 04:00 [place] Bodies Not Reportable 12/03/21 04:00 [place] Rings Not Reportable 12/03/21 04:00 Ania Cells 1+ 12/03/21 04:00 Bite Cells Not Reportable 12/03/21 04:00 Crenated Cell Not Reportable 12/03/21 04:00 Elliptocytes Not Reportable 12/03/21 04:00 Acanthocytes (Spur) Rare 12/03/21 04:00 Rouleaux Not Reportable 12/03/21 04:00 Hemoglobin C Crystals Not Reportable 12/03/21 04:00 Schistocytes Not Reportable 12/03/21 04:00 Malaria parasites Not Reportable 12/03/21 04:00 Josemanuel Bodies Not Reportable 12/03/21 04:00 Hem Pathologist Commnt No 12/03/21 04:00 PT 15.9 Sec. (12.2-14.9) H 12/02/21 01:24 INR 1.15 (0.87-1.13) H 12/02/21 01:24 APTT 31.5 Sec. (24.2-36.6) 12/02/21 01:24 D-Dimer 1461.68 ng/mlDDU (0-234) H 12/02/21 04:18 ABG pH 7.504 pH Units (7.350-7.450) H 12/04/21 10:29 ABG pCO2 39.2 mm Hg 12/04/21 10:29 ABG pO2 40.8 mm Hg (80.0-90.0) L 12/04/21 10:29 ABG HCO3 30.1 mmol/L (20.0-26.0) H 12/04/21 10:29 ABG O2 Saturation 75.1 % (95.0-99.0) L 12/04/21 10:29 ABG O2 Content 10.5 (0.0-44) 12/04/21 10:29 ABG Base Excess 6.6 mmol/L (-2.0-3.0) H 12/04/21 10:29 ABG Hemoglobin 10.2 gm/dl (12.0-16.0) L 12/04/21 10:29 ABG Carboxyhemoglobin 1.1 % (0.0-5.0) 12/04/21 10:29 ABG Methemoglobin 0.8 % (0.0-1.5) 12/04/21 10:29 VBG pH 7.167 (7.320-7.420) L* 12/02/21 01:24 Oxyhemoglobin 73.7 % (95.0-99.0) L 12/04/21 10:29 FiO2 60 % 12/04/21 10:29 Sodium 138 mmol/L (137-145) 12/05/21 04:22 Potassium 4.0 mmol/L (3.6-5.0) 12/05/21 04:22 Chloride 90.3 mmol/L (98-107) L 12/05/21 04:22 Carbon Dioxide 25 mmol/L (22-30) D 12/05/21 04:22 Anion Gap 27 mmol/L 12/05/21 04:22 BUN 89 mg/dL (7-17) H 12/05/21 04:22 Creatinine 8.8 mg/dL (0.6-1.2) H 12/05/21 04:22 Estimated GFR 4 ml/min 12/05/21 04:22 BUN/Creatinine Ratio 10 % 12/05/21 04:22 Glucose 216 mg/dL (65-100) H 12/05/21 04:22 POC Glucose 183 mg/dL (70-105) H 12/04/21 23:30 Lactic Acid 4.60 mmol/L (0.7-2.0) H* 12/04/21 04:18 Calcium 8.0 mg/dL (8.4-10.2) L 12/05/21 04:22 Phosphorus 4.60 mg/dL (2.5-4.5) H 12/05/21 04:22 Magnesium 2.20 mg/dL (1.7-2.3) 12/05/21 04:22 Ferritin 168.9 ng/mL (10.0-200.0) 12/02/21 04:18 Total Bilirubin 0.40 mg/dL (0.1-1.2) 12/02/21 01:24 AST 86 units/L (5-40) H 12/02/21 01:24 ALT 69 units/L (7-56) H 12/02/21 01:24 Alkaline Phosphatase 91 units/L (35-129) 12/02/21 01:24 Lactate Dehydrogenase 958 units/L (91-180) H 12/02/21 04:18 Total Creatine Kinase 254 units/L (30-135) H 12/02/21 01:24 CK-MB (CK-2) 20.2 ng/mL (0.0-4.0) H 12/02/21 01:24 CK-MB (CK-2) Rel Index 7.9 (0-4) H 12/02/21 01:24 Troponin T 2.500 ng/mL (0.00-0.029) H* 12/02/21 13:51 C-Reactive Protein 6.60 mg/dL (0.00-1.30) H 12/02/21 04:18 NT-Pro-B Natriuret Pep > 3500 pg/mL (0-900) H 12/02/21 01:24 Total Protein 7.7 g/dL (6.3-8.2) 12/02/21 01:24 Albumin 4.0 g/dL (3.9-5) 12/02/21 01:24 Albumin/Globulin Ratio 1.1 % 12/02/21 01:24 Triglycerides 280 mg/dL (2-149) H 12/05/21 04:22 Cholesterol 177 mg/dL (50-199) 12/02/21 01:24 LDL Cholesterol Direct 91 mg/dL (50-130) 12/02/21 01:24 HDL Cholesterol 74 mg/dL (40-59) H 12/02/21 01:24 Cholesterol/HDL Ratio 2.39 % 12/02/21 01:24 Procalcitonin 1.24 ng/mL (<0.15) 12/02/21 04:18 Urine Color Yellow (Yellow) 12/03/21 13:48 Urine Turbidity Hazy (Clear) 12/03/21 13:48 Urine pH 7.0 (5.0-7.0) 12/03/21 13:48 Ur Specific D Hanis 1.009 (1.003-1.030) 12/03/21 13:48 Urine Protein >500 mg/dL (Negative) 12/03/21 13:48 Urine Glucose (UA) 50 mg/dL (Negative) 12/03/21 13:48 Urine Ketones Neg mg/dL (Negative) 12/03/21 13:48 Urine Blood Mod (Negative) 12/03/21 13:48 Urine Nitrite Neg (Negative) 12/03/21 13:48 Urine Bilirubin Neg (Negative) 12/03/21 13:48 Urine Urobilinogen < 2.0 mg/dL (<2.0) 12/03/21 13:48 Ur Leukocyte Esterase Neg (Negative) 12/03/21 13:48 Urine WBC (Auto) 9.0 /HPF (0.0-6.0) H 12/03/21 13:48 Urine RBC (Auto) 5.0 /HPF (0.0-6.0) 12/03/21 13:48 U Epithel Cells (Auto) 2.0 /HPF (0-13.0) 12/03/21 13:48 Urine Bacteria (Auto) 1+ /HPF (Negative) 12/02/21 00:52 Urine Mucus Few /HPF 12/03/21 13:48 Urine Yeast (Budding) Few /HPF 12/02/21 00:52 Urine Creatinine 24.4 mg/dL (0.1-20.0) H 12/02/21 00:52 Protein/Creatinin Ratio 4.55 12/02/21 00:52 Urine Sodium 109 mmol/L 12/02/21 00:52 Urine Total Protein 111 mg/dL (5-11.8) H 12/02/21 00:52 Random Vancomycin 14.0 ug/mL (0-40.0) 12/05/21 04:22 Coronavirus (PCR) Negative (Negative) 12/02/21 09:00 Microbiology: Microbiology 12/02/21 01:46 Peripheral/Venous Blood Culture - Preliminary NO GROWTH AFTER 72 HOURS 12/02/21 01:24 Peripheral/Venous Blood Culture - Preliminary NO GROWTH AFTER 72 HOURS 12/02/21 19:48 Tracheal Aspirate Sputum Culture - Preliminary 12/02/21 00:52 Urine,Clean Catch Urine Culture - Preliminary NO GROWTH AFTER 24 HOURS Palacio/IV: Voiding Method Indwelling Catheter Active Medications - Current Medications Current Medications: Generic Name Dose Route Start Last Admin Trade Name Freq PRN Reason Stop Dose Admin Acetaminophen 650 mg 12/02/21 04:37 Acetaminophen 325 Mg Tab PO Q4H PRN Pain MILD(1-3)/Fever >100.5/HYLTON Alprazolam 0.5 mg 12/02/21 11:30 12/05/21 04:40 Alprazolam 0.5 Mg Tab PO 0.5 mg Q8H PRN Administration Anxiety Amlodipine Besylate 10 mg 12/03/21 10:00 12/04/21 10:08 Amlodipine 10 Mg Tab PO 10 mg DAILY KHARI Administration Aspirin 81 mg 12/03/21 10:00 12/04/21 10:07 Aspirin 81 Mg Tab Chew PO 81 mg QDAY KHARI Administration Cilostazol 50 mg 12/02/21 22:00 12/04/21 21:08 Cilostazol 100 Mg Tab PO 50 mg BID KHARI Administration Clopidogrel Bisulfate 75 mg 12/03/21 10:00 12/04/21 10:07 Clopidogrel 75 Mg Tab PO 75 mg QDAY KHARI Administration Dextrose 0 ml 12/02/21 05:10 Dextrose 10% *Hypoglycemia IV PRN PRN Hypoglycemia Protocol Famotidine 10 mg 12/04/21 22:00 12/04/21 21:34 Famotidine 10 Mg Tab PO 10 mg BID KHARI Administration Heparin Sodium (Porcine) 5,000 unit 12/02/21 06:00 12/05/21 05:40 Heparin 5,000 Unit/1 Ml Vial SUB-Q 5,000 unit Q8HR KHARI Administration Hydrophilic Ointment 1 applic 12/02/21 17:32 Lip Therapy Vaseline TP Q2HR PRN Dry Lips Cefepime HCl 1 gm in 100 mls @ 200 mls/hr 12/02/21 18:00 12/04/21 18:31 Cefepime/Ns 1 Gm/100 Ml IV 200 mls/hr QPM KHRAI Administration Protocol Propofol 1,000 mg in 100 mls @ 1.839 mls/hr 12/02/21 18:00 12/05/21 06:30 Diprivan 10 Mg/Ml IV 5 mcg/kg/min TITR KHARI 1.839 mls/hr Titration Protocol 5 MCG/KG/MIN Insulin Human Lispro 0 unit 12/03/21 00:00 12/05/21 06:09 Insulin Lispro 100 Unit/Ml SUB-Q 3 unit Q6HR KHARI Administration Protocol Levalbuterol HCl 0.63 mg 12/02/21 10:00 Levalbuterol 0.63 Mg/3 Ml Nebu IH Q8HRT PRN Shortness Of Breath Lorazepam 1 mg 12/02/21 14:22 12/02/21 15:18 Lorazepam 2 Mg/Ml Vial IV 1 mg Q6H PRN Administration Agitation Magnesium Hydroxide 30 ml 12/02/21 04:37 Magnesium Hydroxide (Mom) Oral Liqd Udc PO Q4H PRN Constipation Metoprolol Tartrate 25 mg 12/02/21 15:00 12/04/21 10:08 Metoprolol Tartrate 25 Mg Tab PO 25 mg QDAY [facility] Administration Morphine Sulfate 2 mg 12/02/21 04:37 12/04/21 10:10 Morphine 2 Mg/1 Ml Inj IV 2 mg Q4H PRN Administration Pain, Moderate (4-6) Morphine Sulfate 4 mg 12/02/21 04:37 Morphine 4 Mg/1 Ml Inj IV Q4H PRN Pain , Severe (7-10) Multi-Ingred Cream/Lotion/Oil/Oint 1 applic 12/02/21 17:32 Mineral Oil/Petrolatum, White Ophth Oint 3.5 Gm OU Q4HR PRN Dry Eye(s) Nitroglycerin 1 inch 12/03/21 14:00 12/05/21 05:39 Nitroglycerin 2% Oint 1 Gm TP 1 inch QIDNTG KHARI Administration Protocol Ondansetron HCl 4 mg 12/02/21 04:37 Ondansetron 4 Mg/2 Ml Inj IV Q8H PRN Nausea And Vomiting Pravastatin Sodium 80 mg 12/02/21 22:00 12/04/21 21:08 Pravastatin 80 Mg Tab PO 80 mg QHS KHARI Administration Senna/Docusate Sodium 1 tab 12/02/21 22:00 12/04/21 21:08 Sennosides/Docusate Sodium 8.6/50 Mg Tab FEEDTUBE 1 tab BID KHARI Administration Sodium Chloride 10 ml 12/02/21 10:00 12/04/21 21:08 Sodium Chloride 0.9% 10 Ml Flush Syringe IV 10 ml BID KHARI Administration Sodium Chloride 10 ml 12/02/21 04:37 Sodium Chloride 0.9% 10 Ml Flush Syringe IV PRN PRN LINE FLUSH Nutrition/Malnutrition Assess - Dietary Evaluation Nutrition/Malnutrition Findings: Nutrition Notes Start: 12/03/21 16:28 Freq: Status: Active Protocol: Document 12/03/21 16:29 ONI (Rec: 12/03/21 17:14 ONI [id number]) Nutrition Notes Need for Assessment generated from: MD Order,information technology advisor,MST Initial or Follow up Assessment Current Diagnosis Acute Kidney Injury,Diabetes, Sepsis,Hypertension, Respiratory Failure, Hyperlipidemia Other Pertinent Diagnosis Pneumonia, Metabolic Acidosis, Metabolic Encephalopathy, PVD , R-AKA. Current Diet NPO. TF-Nepro w/CARBSTEADY @ 27 ml/hr (since B 12/04). Labs/Tests 12/03: K 3.5, CO2 21, BUN 63, Crea 6.3, Glu 158. Pertinent Medications 12/03: Propofol 1000mg in 100 ml @ 3.678 ml/hr (97 Kcal), others nutritionally unremarkable. Height 5 ft 4 in Weight 61.3 kg [place] Body Weight (kg) 54.54 BMI 23.1 Intake Prior to Admission Good Weight change and time frame Pt states being unsure if loss body weight recently. Weight Status Appropriate Subjective/Other Information RD consult for skinr risk and risk of malnutrition assessments, and write/manage TF. Pt currently on NPO. Pt on Mechanical Ventilation. Pt shows no signs of concern for risk of malnutrition at the time, accordinf to Physical Assessment History notes. Pt shows no signs of concern for skin risk at the time, accordinf to Physical Assessment History notes. Pt has missing teeth, accordinf to Physical Assessment History notes. TF ordered. Percent of energy/protein needs met: Pt currently on NPO. Prescribed TF-Nepro w/ CARBSTEADY @ 27 ml/hr provides for energy/protein needs (1, 150 Kcal/52 g) -in addition, Propofol adds 97 Kcal- during LOS, 100% Kcal; 85% AA. Burn Absent Trauma Absent GI Symptoms None Food Allergy No Skin Integrity/Comment WNL. Current % PO Other Minimum of two criteria No #1 Nutrition Diagnosis Inadequate oral intake Etiology Pt on Mechanical Ventilation. As Evidenced by Signs and Symptoms Pt currently on NPO. Is patient on ventilator? Yes Is Patient Ambulatory and/or Out of Bed No REE-([facility]-confined to bed) [phone] Calculation Used for Recommendations [facility] Additional Notes Protein: 1-1.2 g/Kg; 61-73 g/ day. Fluids: 1 ml/Kcal, or as per MD. Nutrition Intervention Nutrition Support: Start Nepro w/CARBSTEADY @ 27 ml/hr. Flush: 100 ml water Q 4 hr, or as per MD. Kcal 1,150 Protein (gm) 52 Carbohydrates (gm) 103 Fat (gm) 61 Fluid (mL) 465 Fiber (gm) 8 % RDI: 100% Kcal; 85% AA. Goal #1 Provide at least 75% of energy /protein needs through Enteral Feeding during LOS. Goal #2 Maintain body weight within +/ -3% of admission body weight during LOS. Follow-Up By: 12/06/21 Additional Comments Continue monitoring TF tolerance and BM.
--- NOTE | 2021-12-04 13:00 | Progress Note ---
Assessment and Plan - Patient Problems (1) Non-ST elevation myocardial infarction (NSTEMI) Current Visit: Yes Status: Acute Plan to address problem: Patient presented to the hospital with acute pulmonary edema and ECG evidence of ST depression of acute inferior lateral ischemia. Hospital course complicated by the development of a right upper lobe pneumonia, respiratory failure, currently on the ventilator. Due to the patient's advanced age, frailty, multiple comorbidities, including advanced dementia and end-stage renal failure, she is not a candidate for aggressive and invasive cardiac evaluation and therapies. We will continue supportive management with medical therapy for coronary artery disease and heart failure as tolerated. An echocardiogram will be ordered for left ventricular function assessment, to appropriately tailor further medical therapy. Subjective Date of service: 12/04/21 Interval history: Patient is unresponsive, on the vent. On milk sampler there is a sinus tachycardia at 104. No new cardiac events have been reported. Objective Vital Signs Temp Pulse Pulse Resp BP Pulse Ox 12/04/21 11:36 98.9 F 12/04/21 11:25 102 H 135/60 98 12/04/21 10:30 136 H 128/67 95 12/04/21 10:08 136 H 142/70 12/04/21 10:00 125 H 142/70 96 12/04/21 09:30 121 H 136/71 98 12/04/21 09:00 116 H 132/67 98 12/04/21 08:30 118 H 127/61 98 12/04/21 08:00 99.1 F 112 H 116 H 20 118/55 100 12/04/21 07:46 98.2 F 12/04/21 07:30 113 H 108/53 99 12/04/21 07:23 112 H 110/48 99 12/04/21 07:00 110 H 110/48 99 12/04/21 06:30 113 H 106/49 98 12/04/21 06:00 106 H 103/50 98 12/04/21 05:30 103 H 103/49 98 12/04/21 05:00 120 H 119/59 96 12/04/21 04:30 122 H 118/57 97 12/04/21 04:20 124 H 118/57 95 12/04/21 04:00 126 H 129 H 15 121/59 97 12/04/21 03:52 99.3 F 12/04/21 03:30 120 H 119/56 98 12/04/21 03:00 121 H 116/57 98 12/04/21 02:30 120 H 114/54 98 12/04/21 02:00 114 H 113/50 98 12/04/21 01:30 117 H 119/59 98 12/04/21 01:00 122 H 115/55 97 12/04/21 00:30 122 H 107/57 97 12/04/21 00:05 121 H 110/59 97 12/04/21 00:00 118 H 118 H 15 110/59 100 12/03/21 23:50 118 H 109/50 97 12/03/21 23:43 97.8 F 12/03/21 23:30 111 H 109/50 100 12/03/21 23:00 109 H 107/50 99 12/03/21 22:30 108 H 119/56 99 12/03/21 22:00 109 H 117/58 99 12/03/21 21:30 113 H 123/61 99 12/03/21 21:00 107 H 114/54 99 12/03/21 20:30 106 H 118/57 99 12/03/21 20:02 107 H 125/64 98 12/03/21 20:00 100.6 F H 109 H 125/64 98 12/03/21 19:45 110 H 20 100 12/03/21 19:30 108 H 128/65 97 12/03/21 19:13 109 H 12/03/21 19:00 111 H 123/64 97 12/03/21 18:30 111 H 120/63 96 12/03/21 18:24 111 H 121/65 12/03/21 18:10 22 12/03/21 18:00 113 H 121/65 95 12/03/21 17:40 29 H 12/03/21 17:30 118 H 139/76 94 12/03/21 17:01 120 H 121/61 90 12/03/21 16:30 102 H 121/61 97 12/03/21 16:18 98.3 F 12/03/21 16:00 103 H 121 H 20 123/62 98 12/03/21 15:30 102 H 129/64 97 12/03/21 15:00 100 H 117/60 97 12/03/21 14:30 101 H 124/68 97 12/03/21 14:12 104 H 143/75 12/03/21 14:00 106 H 143/75 97 12/03/21 13:30 118 H 166/83 96 12/03/21 13:07 126 H 153/78 12/03/21 13:00 118 H 153/78 95 - Physical Examination General: Cachectic, Other (Sedated, intubated on the vent) HEENT: Positive: Other (Pupils nonreactive) Neck: Positive: neck supple Cardiac: Positive: Reg Rate and Rhythm Lungs: Positive: Decreased Breath Sounds Neuro: Positive: Other (Sedated, intubated, on the vent) Abdomen: Positive: Soft Skin: Positive: Clear Extremities: Absent: edema - Labs and Meds CBC 12/04/21 Range/Units 04:18 WBC 10.9 (4.5-11.0) K/mm3 RBC 3.29 L (3.65-5.03) M/mm3 Hgb 10.0 L (10.1-14.3) gm/dl Hct 28.4 L D (30.3-42.9) % Plt Count 205 (140-440) K/mm3 Comprehensive Metabolic Panel 12/03/21 12/04/21 Range/Units 16:20 04:18 Sodium 140 140 (137-145) mmol/L Potassium 3.8 3.5 L (3.6-5.0) mmol/L Chloride 92.3 L 91.5 L (98-107) mmol/L Carbon Dioxide 25 33 H D (22-30) mmol/L BUN 67 H 74 H (7-17) mg/dL Creatinine 7.1 H 7.5 H (0.6-1.2) mg/dL Glucose 160 H 155 H (65-100) mg/dL Calcium 7.3 L 7.2 L (8.4-10.2) mg/dL
--- NOTE | 2021-12-04 13:25 | Electrocardiograph Report ---
[facility] Test Date: 2021-12-04 Test Time: 10:00:22 Pat Name: ROBINSON JOY Department: Room: A255 1 Gender: F Screen Operator: DAISY : [id number] Requested By: DEBBIE FONSECA Order Number: [id number] Reading MD: Liya Sunshine Measurements Intervals [place] Rate: 122 P: 66 PA: 133 QRS: -29 QRSD: 79 T: 177 QT: 275 QTc: 390 Interpretive Statements Sinus tachycardia Atrial premature complexes Marked ST depression consistent with acute inferolateral ischemia Compared to ECG 12/02/2021 01:29:36 No significant change Electronically Signed On 12-04-2021 13:25:26 EST by Liya Susnhine
--- NOTE | 2021-12-04 13:42 | Progress Note ---
Assessment and Plan Cultures: 12/02/2021 blood culture: no growth COVID-19 PCR: negative 12/02/2021 sputum culture: no growth so far 12/02/2021 urine culture: no growth A/P: 86-year-old female with hypertension, diabetes, peripheral vascular disease, prior right AKA admitted with shortness of breath: #Severe sepsis, secondary to pneumonia, acute respiratory failure: on the vent. #Severe metabolic acidosis, lactic acidosis #Acute renal failure: Renally adjust antibiotics #Acute encephalopathy: Likely metabolic. Recs: -Continue renally adjusted IV cefepime, vancomycin -Follow-up blood, urine and sputum cultures Elizabeth Lane MD, FACP, [facility] O: [phone] F: [phone] Subjective Date of service: 12/04/21 Interval history: No fever. Remains on the vent. DVT scan negative. Chest x-ray without any interval improvement Objective - Exam Narrative Exam: Physical Exam: Constitutional: sedated, intubated, on the vent Head, Ears, Nose: Normocephalic, atraumatic. External ears, nose normal Eyes: Conjunctivae/corneas clear. No icterus. No ptosis. Neck: intubated Oral: intubated Cardiovascular: S1, S2 + Respiratory: AE fair bilaterally and equal GI: Soft, bowel sounds hypo Musculoskeletal: No pedal edema, no cyanosis. R AKA well healed Skin: No rash or abscess Hem/Lymphatic: No palpable cervical or supraclavicular nodes. No lymphangitis Psych: no agitation Neurological: sedated, intubated, on the vent, exam limited - Constitutional Vitals: Vital Signs Temp Pulse Resp BP Pulse Ox 98.9 F 107 H 15 115/52 98 12/04/21 12:00 12/04/21 13:00 12/04/21 12:00 12/04/21 13:00 12/04/21 13:00 Temperature -Last 24 Hours Temperature 98.9 F Temperature 98.9 F Temperature 99.1 F Temperature 98.2 F Temperature 99.3 F Temperature 97.8 F Temperature 100.6 F Temperature 98.3 F - Labs CBC & Chem 7: 12/04/21 04:18 12/04/21 04:18 Labs: Abnormal lab results 12/03/21 12/03/21 12/03/21 Range/Units 13:48 15:51 16:20 RBC (3.65-5.03) M/mm3 Hgb (10.1-14.3) gm/dl Hct (30.3-42.9) % MCHC (30-34) % RDW (13.2-15.2) % ABG pH (7.350-7.450) pH Units ABG pO2 (80.0-90.0) mm Hg ABG HCO3 (20.0-26.0) mmol/L ABG O2 Saturation (95.0-99.0) % ABG Base Excess (-2.0-3.0) mmol/L ABG Hemoglobin (12.0-16.0) gm/dl Oxyhemoglobin (95.0-99.0) % Potassium (3.6-5.0) mmol/L Chloride 92.3 L (98-107) mmol/L Carbon Dioxide (22-30) mmol/L BUN 67 H (7-17) mg/dL Creatinine 7.1 H (0.6-1.2) mg/dL Glucose 160 H (65-100) mg/dL POC Glucose 168 H (70-105) mg/dL Lactic Acid (0.7-2.0) mmol/L Calcium 7.3 L (8.4-10.2) mg/dL Phosphorus (2.5-4.5) mg/dL Urine WBC (Auto) 9.0 H (0.0-6.0) /HPF 12/03/21 12/03/21 12/04/21 Range/Units 16:35 23:21 04:18 RBC 3.29 L (3.65-5.03) M/mm3 Hgb 10.0 L (10.1-14.3) gm/dl Hct 28.4 L D (30.3-42.9) % MCHC 35 H (30-34) % RDW 15.4 H (13.2-15.2) % ABG pH (7.350-7.450) pH Units ABG pO2 (80.0-90.0) mm Hg ABG HCO3 (20.0-26.0) mmol/L ABG O2 Saturation (95.0-99.0) % ABG Base Excess (-2.0-3.0) mmol/L ABG Hemoglobin (12.0-16.0) gm/dl Oxyhemoglobin (95.0-99.0) % Potassium (3.6-5.0) mmol/L Chloride (98-107) mmol/L Carbon Dioxide (22-30) mmol/L BUN (7-17) mg/dL Creatinine (0.6-1.2) mg/dL Glucose (65-100) mg/dL POC Glucose 158 H 161 H (70-105) mg/dL Lactic Acid (0.7-2.0) mmol/L Calcium (8.4-10.2) mg/dL Phosphorus (2.5-4.5) mg/dL Urine WBC (Auto) (0.0-6.0) /HPF 12/04/21 12/04/21 12/04/21 Range/Units 04:18 04:18 10:29 RBC (3.65-5.03) M/mm3 Hgb (10.1-14.3) gm/dl Hct (30.3-42.9) % MCHC (30-34) % RDW (13.2-15.2) % ABG pH 7.504 H (7.350-7.450) pH Units ABG pO2 40.8 L (80.0-90.0) mm Hg ABG HCO3 30.1 H (20.0-26.0) mmol/L ABG O2 Saturation 75.1 L (95.0-99.0) % ABG Base Excess 6.6 H (-2.0-3.0) mmol/L ABG Hemoglobin 10.2 L (12.0-16.0) gm/dl Oxyhemoglobin 73.7 L (95.0-99.0) % Potassium 3.5 L (3.6-5.0) mmol/L Chloride 91.5 L (98-107) mmol/L Carbon Dioxide 33 H D (22-30) mmol/L BUN 74 H (7-17) mg/dL Creatinine 7.5 H (0.6-1.2) mg/dL Glucose 155 H (65-100) mg/dL POC Glucose (70-105) mg/dL Lactic Acid 4.60 H* (0.7-2.0) mmol/L Calcium 7.2 L (8.4-10.2) mg/dL Phosphorus 4.60 H (2.5-4.5) mg/dL Urine WBC (Auto) (0.0-6.0) /HPF 12/04/21 Range/Units 11:08 RBC (3.65-5.03) M/mm3 Hgb (10.1-14.3) gm/dl Hct (30.3-42.9) % MCHC (30-34) % RDW (13.2-15.2) % ABG pH (7.350-7.450) pH Units ABG pO2 (80.0-90.0) mm Hg ABG HCO3 (20.0-26.0) mmol/L ABG O2 Saturation (95.0-99.0) % ABG Base Excess (-2.0-3.0) mmol/L ABG Hemoglobin (12.0-16.0) gm/dl Oxyhemoglobin (95.0-99.0) % Potassium (3.6-5.0) mmol/L Chloride (98-107) mmol/L Carbon Dioxide (22-30) mmol/L BUN (7-17) mg/dL Creatinine (0.6-1.2) mg/dL Glucose (65-100) mg/dL POC Glucose 146 H (70-105) mg/dL Lactic Acid (0.7-2.0) mmol/L Calcium (8.4-10.2) mg/dL Phosphorus (2.5-4.5) mg/dL Urine WBC (Auto) (0.0-6.0) /HPF
--- NOTE | 2021-12-04 17:11 | Progress Note ---
Assessment and Plan Impression: * Oligoanuric acute kidney injury secondary to ATN * Metabolic acidosis, severe * Lactic acidosis * Acute hypoxic respiratory failure * Sepsis - ?bilateral PNA * NSTEMI Plan: * Metabolic acidosis corrected, now alkalotic. Agree with dc'ing bicarb gtt * Anticipate need for renal replacement therapy. Contacted patient's POA, Prateek Landry at [phone]. No answer, left voicemail * Vent management per pulmonary * Cardiology recommendations reviewed * Abx per primary team/ID * Dose medications for renal * Avoid potential nephrotoxins * Strict I/O Subjective Date of service: 12/04/21 Interval history: No acute events. Intubated - FiO2 55% Objective - Vital Signs Vital signs: Vital Signs - 12hr 12/04/21 12/04/21 12/04/21 05:30 06:00 06:30 Temperature Pulse Rate 103 H 106 H 113 H Pulse Rate [ From Monitor] Respiratory Rate Blood Pressure 103/49 103/50 106/49 O2 Sat by Pulse 98 98 98 Oximetry 12/04/21 12/04/21 12/04/21 07:00 07:23 07:30 Temperature Pulse Rate 110 H 112 H 113 H Pulse Rate [ From Monitor] Respiratory Rate Blood Pressure 110/48 110/48 108/53 O2 Sat by Pulse 99 99 99 Oximetry 12/04/21 12/04/21 12/04/21 07:46 08:00 08:30 Temperature 98.2 F 99.1 F Pulse Rate 112 H 118 H Pulse Rate [ 116 H From Monitor] Respiratory 20 Rate Blood Pressure 118/55 127/61 O2 Sat by Pulse 100 98 Oximetry 12/04/21 12/04/21 12/04/21 09:00 09:30 10:00 Temperature Pulse Rate 116 H 121 H 125 H Pulse Rate [ From Monitor] Respiratory Rate Blood Pressure 132/67 136/71 142/70 O2 Sat by Pulse 98 98 96 Oximetry 12/04/21 12/04/21 12/04/21 10:08 10:30 11:00 Temperature Pulse Rate 136 H 136 H 103 H Pulse Rate [ From Monitor] Respiratory Rate Blood Pressure 142/70 128/67 135/60 O2 Sat by Pulse 95 97 Oximetry 12/04/21 12/04/21 12/04/21 11:25 11:31 11:36 Temperature 98.9 F Pulse Rate 102 H 107 H Pulse Rate [ From Monitor] Respiratory Rate Blood Pressure 135/60 110/58 O2 Sat by Pulse 98 99 Oximetry 12/04/21 12/04/21 12/04/21 12:00 12:30 13:00 Temperature 98.9 F Pulse Rate 103 H 105 H 107 H Pulse Rate [ 126 H From Monitor] Respiratory 15 Rate Blood Pressure 101/54 100/55 115/52 O2 Sat by Pulse 98 99 98 Oximetry 12/04/21 12/04/21 12/04/21 13:30 14:00 14:30 Temperature Pulse Rate 107 H 107 H 112 H Pulse Rate [ From Monitor] Respiratory Rate Blood Pressure 121/48 118/50 118/43 O2 Sat by Pulse 98 96 95 Oximetry 12/04/21 12/04/21 12/04/21 14:52 15:00 15:17 Temperature Pulse Rate 113 H 121 H 117 H Pulse Rate [ From Monitor] Respiratory Rate Blood Pressure 118/43 128/73 128/73 O2 Sat by Pulse 93 96 Oximetry 12/04/21 12/04/21 12/04/21 15:30 16:00 16:07 Temperature 98.9 F Pulse Rate 113 H 117 H Pulse Rate [ 115 H From Monitor] Respiratory 14 Rate Blood Pressure 131/65 122/57 O2 Sat by Pulse 95 95 Oximetry - General Appearance General appearance: well-developed, well-nourished, intubated EENT: other (ETT in place) Respiratory: Present: Other (Coarse BS) Cardiology: regular, S1S2 Integumentary: no rash Neurologic: other (sedated) - Lab 12/05/21 04:22 12/05/21 04:22 Most recent lab results ABG pH 7.504 pH Units (7.350-7.450) H 12/04/21 10:29 ABG pCO2 39.2 mm Hg 12/04/21 10:29 ABG pO2 40.8 mm Hg (80.0-90.0) L 12/04/21 10:29 ABG HCO3 30.1 mmol/L (20.0-26.0) H 12/04/21 10:29 ABG O2 Saturation 75.1 % (95.0-99.0) L 12/04/21 10:29 Calcium 7.2 mg/dL (8.4-10.2) L 12/04/21 04:18 Phosphorus 4.60 mg/dL (2.5-4.5) H 12/04/21 04:18 Magnesium 1.80 mg/dL (1.7-2.3) 12/04/21 04:18 Urine Creatinine 24.4 mg/dL (0.1-20.0) H 12/02/21 00:52 Urine Sodium 109 mmol/L 12/02/21 00:52 Urine Total Protein 111 mg/dL (5-11.8) H 12/02/21 00:52 Medications & Allergies - Medications Allergies/Adverse Reactions: Allergies No Known Allergies Allergy (Verified 04/05/19 15:30) Home Medications: Home Medications Medication Instructions Recorded Confirmed Last Taken Type Gabapentin 300 mg PO BID 04/05/19 04/06/19 Unknown History Metoprolol [Lopressor TAB] 25 mg PO QDAY 04/05/19 04/06/19 Unknown History Simvastatin 40 mg PO QHS 04/05/19 04/06/19 Unknown History Vitamin D2 50,000 units PO QWEEK 04/05/19 04/06/19 Unknown History amLODIPine 10 mg PO DAILY 04/05/19 04/05/19 Unknown History metFORMIN [Glucophage] 500 mg PO QHS 04/05/19 04/06/19 Unknown History raNITIdine HCl [Zantac] 300 mg PO QDAY 04/05/19 04/06/19 Unknown History Aspirin [Aspirin BABY CHEW TAB] 81 mg PO QDAY #30 tab.chew 04/12/19 Unknown Rx Clopidogrel [Plavix] 75 mg PO QDAY #30 tablet 04/12/19 Unknown Rx cilostazoL [Pletal] 50 mg PO BID #30 tablet 04/12/19 Unknown Rx oxyCODONE /ACETAMINOPHEN [Percocet 2 tab PO Q6H PRN #20 tablet 04/12/19 Unknown Rx 5/325 mg] Active Medications: Generic Name Dose Route Start Last Admin Trade Name Freq PRN Reason Stop Dose Admin Acetaminophen 650 mg 12/02/21 04:37 Acetaminophen 325 Mg Tab PO Q4H PRN Pain MILD(1-3)/Fever >100.5/HYLTON Alprazolam 0.5 mg 12/02/21 11:30 12/02/21 11:38 Alprazolam 0.5 Mg Tab PO 0.5 mg Q8H PRN Administration Anxiety Amlodipine Besylate 10 mg 12/03/21 10:00 12/04/21 10:08 Amlodipine 10 Mg Tab PO 10 mg DAILY KHARI Administration Aspirin 81 mg 12/03/21 10:00 12/04/21 10:07 Aspirin 81 Mg Tab Chew PO 81 mg QDAY KHARI Administration Cilostazol 50 mg 12/02/21 22:00 12/04/21 10:07 Cilostazol 100 Mg Tab PO 50 mg BID KHARI Administration Clopidogrel Bisulfate 75 mg 12/03/21 10:00 12/04/21 10:07 Clopidogrel 75 Mg Tab PO 75 mg QDAY KHARI Administration Dextrose 0 ml 12/02/21 05:10 Dextrose 10% *Hypoglycemia IV PRN PRN Hypoglycemia Protocol Famotidine 10 mg 12/04/21 22:00 Famotidine 10 Mg Tab PO BID [facility] Heparin Sodium (Porcine) 5,000 unit 12/02/21 06:00 12/04/21 14:52 Heparin 5,000 Unit/1 Ml Vial SUB-Q 5,000 unit Q8HR KHARI Administration Hydrophilic Ointment 1 applic 12/02/21 17:32 Lip Therapy Vaseline TP Q2HR PRN Dry Lips Cefepime HCl 1 gm in 100 mls @ 200 mls/hr 12/02/21 18:00 12/03/21 18:56 Cefepime/Ns 1 Gm/100 Ml IV Infused QPM KHARI Infusion Protocol Propofol 1,000 mg in 100 mls @ 1.839 mls/hr 12/02/21 18:00 12/04/21 08:30 Diprivan 10 Mg/Ml IV 10 mcg/kg/min TITR KHARI 3.678 mls/hr Titration Protocol 5 MCG/KG/MIN Insulin Human Lispro 0 unit 12/03/21 00:00 12/04/21 05:03 Insulin Lispro 100 Unit/Ml SUB-Q 2 unit Q6HR KHARI Administration Protocol Levalbuterol HCl 0.63 mg 12/02/21 10:00 Levalbuterol 0.63 Mg/3 Ml Nebu IH Q8HRT PRN Shortness Of Breath Lorazepam 1 mg 12/02/21 14:22 12/02/21 15:18 Lorazepam 2 Mg/Ml Vial IV 1 mg Q6H PRN Administration Agitation Magnesium Hydroxide 30 ml 12/02/21 04:37 Magnesium Hydroxide (Mom) Oral Liqd Udc PO Q4H PRN Constipation Metoprolol Tartrate 25 mg 12/02/21 15:00 12/04/21 10:08 Metoprolol Tartrate 25 Mg Tab PO 25 mg QDAY KHARI Administration Morphine Sulfate 2 mg 12/02/21 04:37 12/04/21 10:10 Morphine 2 Mg/1 Ml Inj IV 2 mg Q4H PRN Administration Pain, Moderate (4-6) Morphine Sulfate 4 mg 12/02/21 04:37 Morphine 4 Mg/1 Ml Inj IV Q4H PRN Pain , Severe (7-10) Multi-Ingred Cream/Lotion/Oil/Oint 1 applic 12/02/21 17:32 Mineral Oil/Petrolatum, White Ophth Oint 3.5 Gm OU Q4HR PRN Dry Eye(s) Nitroglycerin 1 inch 12/03/21 14:00 12/04/21 14:52 Nitroglycerin 2% Oint 1 Gm TP 1 inch QIDNTG KHARI Administration Protocol Ondansetron HCl 4 mg 12/02/21 04:37 Ondansetron 4 Mg/2 Ml Inj IV Q8H PRN Nausea And Vomiting Pravastatin Sodium 80 mg 12/02/21 22:00 12/03/21 21:58 Pravastatin 80 Mg Tab PO 80 mg QHS KHARI Administration Senna/Docusate Sodium 1 tab 12/02/21 22:00 12/04/21 10:07 Sennosides/Docusate Sodium 8.6/50 Mg Tab FEEDTUBE 1 tab BID KHARI Administration Sodium Chloride 10 ml 12/02/21 10:00 12/04/21 10:10 Sodium Chloride 0.9% 10 Ml Flush Syringe IV 10 ml BID KHARI Administration Sodium Chloride 10 ml 12/02/21 04:37 Sodium Chloride 0.9% 10 Ml Flush Syringe IV PRN PRN LINE FLUSH
[2021-12-04] MEDS: CEFEPIME/NS 1 GM/100 ML 1 GM/100 ML BAG IV SCH (18:31)
[2021-12-04] MEDS: PRAVASTATIN 80 MG TAB PO SCH (21:08)
[2021-12-04] MEDS: ALPRAZolam 0.5 MG TAB PO PRN (21:34)
[2021-12-04] MEDS: FAMOTIDINE 10 MG TAB PO SCH (21:34)
[2021-12-05] MEDS: INSULIN LISPRO 100 UNIT/ML SUB-Q SCH ×4 (00:40→18:10)
[2021-12-05] MEDS ORDERED: METOPROLOL TARTRATE 5 MG/5 ML INJ IV ONE (04:26)
[2021-12-05] MEDS: ALPRAZolam 0.5 MG TAB PO PRN (04:40)
[2021-12-05 05:30] LABS: Hematocrit 29.3 % (30.3-42.9); Hemoglobin 9.6 gm/dl (10.1-14.3); Mean Corpuscular HGB Conc 33 % (30-34); Mean Corpuscular Volume 88 fl (79-97); Platelet Count 195 K/mm3 (140-440); Red Blood Count 3.33 M/mm3 (3.65-5.03); Red Cell Distribution Width 15.5 % (13.2-15.2)
[2021-12-05] MEDS: NITROGLYCERIN 2% OINT 1 GM TP SCH ×4 (05:39→18:06)
[2021-12-05] MEDS: HEPARIN 5,000 UNIT/1 ML VIAL SUB-Q SCH ×3 (05:40→21:09)
--- NOTE | 2021-12-05 05:52 | XRay Report ---
CHEST 1 VIEW INDICATION / CLINICAL INFORMATION: follow up respiratory failure. COMPARISON: Chest x-ray 12/04/2021 FINDINGS: SUPPORT DEVICES: Stable, satisfactory device positioning. HEART / MEDIASTINUM: Stable. LUNGS / PLEURA: Bilateral mid and lower lung opacities unchanged. Small dependent pleural effusions a nd/or fluid within the right major fissure. No pneumothorax. ADDITIONAL FINDINGS: No significant additional findings. IMPRESSION: 1. Little change in the appearance of the chest given the difference in inspiration. Small bilateral dependent effusions are suggested. Signer Name: Ortega Neumann II, MD Signed: 12/05/2021 5:48 AM Workstation Name: [id number]
--- NOTE | 2021-12-05 09:38 | Progress Note ---
Assessment and Plan Impression: * Oligoanuric acute kidney injury secondary to ATN * Metabolic acidosis, severe * Lactic acidosis * Acute hypoxic respiratory failure * Sepsis - ?bilateral PNA * NSTEMI Plan: * Contacted patient's POA, Prateek Landry at [phone]; discussed hemodialysis in setting of continued decline in patient's renal function. Risks/benefits of hemodialysis addressed. POA wishes to move forward with aggressive measures/hemodialysis and states, "I understand she is dying. Just give her a fighting chance". * Discussed with Dr. Cagle who will place vascath * Hemodialysis to follow. Will plan for HD again tomorrow * Vent management per pulmonary * Cardiology recommendations reviewed * Abx per primary team/ID * Dose medications for renal * Avoid potential nephrotoxins * Strict I/O Subjective Date of service: 12/05/21 Objective - Vital Signs Vital signs: Vital Signs - 12hr 12/04/21 12/04/21 12/04/21 22:00 22:30 23:00 Temperature Pulse Rate 115 H 118 H 112 H Pulse Rate [ From Monitor] Respiratory Rate Blood Pressure 108/50 102/56 103/49 O2 Sat by Pulse 93 94 95 Oximetry 12/04/21 12/04/21 12/04/21 23:28 23:30 23:31 Temperature Pulse Rate 114 H 109 H 113 H Pulse Rate [ From Monitor] Respiratory Rate Blood Pressure 103/49 111/60 O2 Sat by Pulse 95 95 Oximetry 12/04/21 12/04/21 12/05/21 23:34 23:51 00:00 Temperature 99 F Pulse Rate 116 H Pulse Rate [ 117 H From Monitor] Respiratory 20 0 L Rate Blood Pressure 110/55 O2 Sat by Pulse 93 94 Oximetry 12/05/21 12/05/21 12/05/21 00:30 01:00 01:30 Temperature Pulse Rate 117 H 114 H 108 H Pulse Rate [ From Monitor] Respiratory Rate Blood Pressure 110/55 93/40 93/40 O2 Sat by Pulse 89 94 95 Oximetry 12/05/21 12/05/21 12/05/21 02:00 02:30 03:00 Temperature Pulse Rate 117 H 114 H 117 H Pulse Rate [ From Monitor] Respiratory Rate Blood Pressure 93/36 102/39 96/37 O2 Sat by Pulse 95 95 94 Oximetry 12/05/21 12/05/21 12/05/21 03:22 03:26 03:30 Temperature 99.3 F Pulse Rate 119 H 116 H Pulse Rate [ 119 H From Monitor] Respiratory 16 Rate Blood Pressure 96/37 O2 Sat by Pulse 93 92 Oximetry 12/05/21 12/05/21 12/05/21 03:57 04:00 04:30 Temperature Pulse Rate 119 H 124 H 120 H Pulse Rate [ From Monitor] Respiratory 12 Rate Blood Pressure 104/47 99/51 O2 Sat by Pulse 95 91 92 Oximetry 12/05/21 12/05/21 12/05/21 05:00 05:30 06:00 Temperature Pulse Rate 113 H 116 H 113 H Pulse Rate [ From Monitor] Respiratory Rate Blood Pressure 99/51 103/55 100/47 O2 Sat by Pulse 93 91 92 Oximetry 12/05/21 12/05/21 12/05/21 06:30 07:00 07:30 Temperature Pulse Rate 115 H 116 H 120 H Pulse Rate [ From Monitor] Respiratory Rate Blood Pressure 109/55 110/58 107/57 O2 Sat by Pulse 93 93 93 Oximetry 12/05/21 12/05/21 12/05/21 07:32 07:34 08:00 Temperature 99.8 F H Pulse Rate 112 H 116 H Pulse Rate [ 119 H From Monitor] Respiratory 22 Rate Blood Pressure 107/57 116/62 O2 Sat by Pulse 92 91 Oximetry 12/05/21 12/05/21 08:30 09:00 Temperature Pulse Rate 115 H 121 H Pulse Rate [ From Monitor] Respiratory Rate Blood Pressure 116/60 120/61 O2 Sat by Pulse 90 90 Oximetry - Lab 12/05/21 04:22 12/05/21 04:22 Most recent lab results ABG pH 7.504 pH Units (7.350-7.450) H 12/04/21 10:29 ABG pCO2 39.2 mm Hg 12/04/21 10:29 ABG pO2 40.8 mm Hg (80.0-90.0) L 12/04/21 10:29 ABG HCO3 30.1 mmol/L (20.0-26.0) H 12/04/21 10:29 ABG O2 Saturation 75.1 % (95.0-99.0) L 12/04/21 10:29 Calcium 8.0 mg/dL (8.4-10.2) L 12/05/21 04:22 Phosphorus 4.60 mg/dL (2.5-4.5) H 12/05/21 04:22 Magnesium 2.20 mg/dL (1.7-2.3) 12/05/21 04:22 Urine Creatinine 24.4 mg/dL (0.1-20.0) H 12/02/21 00:52 Urine Sodium 109 mmol/L 12/02/21 00:52 Urine Total Protein 111 mg/dL (5-11.8) H 12/02/21 00:52 Medications & Allergies - Medications Allergies/Adverse Reactions: Allergies No Known Allergies Allergy (Verified 04/05/19 15:30) Home Medications: Home Medications Medication Instructions Recorded Confirmed Last Taken Type Gabapentin 300 mg PO BID 04/05/19 04/06/19 Unknown History Metoprolol [Lopressor TAB] 25 mg PO QDAY 04/05/19 04/06/19 Unknown History Simvastatin 40 mg PO QHS 04/05/19 04/06/19 Unknown History Vitamin D2 50,000 units PO QWEEK 04/05/19 04/06/19 Unknown History amLODIPine 10 mg PO DAILY 04/05/19 04/05/19 Unknown History metFORMIN [Glucophage] 500 mg PO QHS 04/05/19 04/06/19 Unknown History raNITIdine HCl [Zantac] 300 mg PO QDAY 04/05/19 04/06/19 Unknown History Aspirin [Aspirin BABY CHEW TAB] 81 mg PO QDAY #30 tab.chew 04/12/19 Unknown Rx Clopidogrel [Plavix] 75 mg PO QDAY #30 tablet 04/12/19 Unknown Rx cilostazoL [Pletal] 50 mg PO BID #30 tablet 04/12/19 Unknown Rx oxyCODONE /ACETAMINOPHEN [Percocet 2 tab PO Q6H PRN #20 tablet 04/12/19 Unknown Rx 5/325 mg] Active Medications: Generic Name Dose Route Start Last Admin Trade Name Freq PRN Reason Stop Dose Admin Acetaminophen 650 mg 12/02/21 04:37 Acetaminophen 325 Mg Tab PO Q4H PRN Pain MILD(1-3)/Fever >100.5/HYLTON Alprazolam 0.5 mg 12/02/21 11:30 12/05/21 04:40 Alprazolam 0.5 Mg Tab PO 0.5 mg Q8H PRN Administration Anxiety Amlodipine Besylate 10 mg 12/03/21 10:00 12/04/21 10:08 Amlodipine 10 Mg Tab PO 10 mg DAILY KHARI Administration Aspirin 81 mg 12/03/21 10:00 12/04/21 10:07 Aspirin 81 Mg Tab Chew PO 81 mg QDAY KHARI Administration Cilostazol 50 mg 12/02/21 22:00 12/04/21 21:08 Cilostazol 100 Mg Tab PO 50 mg BID KHARI Administration Clopidogrel Bisulfate 75 mg 12/03/21 10:00 12/04/21 10:07 Clopidogrel 75 Mg Tab PO 75 mg QDAY KHARI Administration Dextrose 0 ml 12/02/21 05:10 Dextrose 10% *Hypoglycemia IV PRN PRN Hypoglycemia Protocol Famotidine 10 mg 12/04/21 22:00 12/04/21 21:34 Famotidine 10 Mg Tab PO 10 mg BID KHARI Administration Heparin Sodium (Porcine) 5,000 unit 12/02/21 06:00 12/05/21 05:40 Heparin 5,000 Unit/1 Ml Vial SUB-Q 5,000 unit Q8HR KHARI Administration Hydrophilic Ointment 1 applic 12/02/21 17:32 Lip Therapy Vaseline TP Q2HR PRN Dry Lips Cefepime HCl 1 gm in 100 mls @ 200 mls/hr 12/02/21 18:00 12/04/21 18:31 Cefepime/Ns 1 Gm/100 Ml IV 200 mls/hr QPM KHARI Administration Protocol Propofol 1,000 mg in 100 mls @ 1.839 mls/hr 12/02/21 18:00 12/05/21 06:30 Diprivan 10 Mg/Ml IV 5 mcg/kg/min TITR KHARI 1.839 mls/hr Titration Protocol 5 MCG/KG/MIN Insulin Human Lispro 0 unit 12/03/21 00:00 12/05/21 06:09 Insulin Lispro 100 Unit/Ml SUB-Q 3 unit Q6HR KHARI Administration Protocol Levalbuterol HCl 0.63 mg 12/02/21 10:00 Levalbuterol 0.63 Mg/3 Ml Nebu IH Q8HRT PRN Shortness Of Breath Lorazepam 1 mg 12/02/21 14:22 12/02/21 15:18 Lorazepam 2 Mg/Ml Vial IV 1 mg Q6H PRN Administration Agitation Magnesium Hydroxide 30 ml 12/02/21 04:37 Magnesium Hydroxide (Mom) Oral Liqd Udc PO Q4H PRN Constipation Metoprolol Tartrate 25 mg 12/02/21 15:00 12/04/21 10:08 Metoprolol Tartrate 25 Mg Tab PO 25 mg QDAY KHARI Administration Morphine Sulfate 2 mg 12/02/21 04:37 12/04/21 10:10 Morphine 2 Mg/1 Ml Inj IV 2 mg Q4H PRN Administration Pain, Moderate (4-6) Morphine Sulfate 4 mg 12/02/21 04:37 Morphine 4 Mg/1 Ml Inj IV Q4H PRN Pain , Severe (7-10) Multi-Ingred Cream/Lotion/Oil/Oint 1 applic 12/02/21 17:32 Mineral Oil/Petrolatum, White Ophth Oint 3.5 Gm OU Q4HR PRN Dry Eye(s) Nitroglycerin 1 inch 12/03/21 14:00 12/05/21 05:39 Nitroglycerin 2% Oint 1 Gm TP 1 inch QIDNTG KHARI Administration Protocol Ondansetron HCl 4 mg 12/02/21 04:37 Ondansetron 4 Mg/2 Ml Inj IV Q8H PRN Nausea And Vomiting Pravastatin Sodium 80 mg 12/02/21 22:00 12/04/21 21:08 Pravastatin 80 Mg Tab PO 80 mg QHS KHARI Administration Senna/Docusate Sodium 1 tab 12/02/21 22:00 12/04/21 21:08 Sennosides/Docusate Sodium 8.6/50 Mg Tab FEEDTUBE 1 tab BID KHARI Administration Sodium Chloride 10 ml 12/02/21 10:00 12/04/21 21:08 Sodium Chloride 0.9% 10 Ml Flush Syringe IV 10 ml BID KHARI Administration Sodium Chloride 10 ml 12/02/21 04:37 Sodium Chloride 0.9% 10 Ml Flush Syringe IV PRN PRN LINE FLUSH
[2021-12-05] MEDS: FAMOTIDINE 10 MG TAB PO SCH ×2 (09:56→21:10)
[2021-12-05] MEDS: METOPROLOL TARTRATE 25 MG TAB PO SCH (09:56)
[2021-12-05] MEDS: CILOSTAZOL 100 MG TAB PO SCH ×2 (09:56→21:10)
[2021-12-05] MEDS: ASPIRIN 81 MG TAB CHEW PO SCH (09:56)
[2021-12-05] MEDS: amLODIPine 10 MG TAB PO SCH (09:57)
[2021-12-05] MEDS: CLOPIDOGREL 75 MG TAB PO SCH (09:57)
[2021-12-05] MEDS: SENNOSIDES/DOCUSATE SODIUM 8.6/50 MG TAB FEEDTUBE SCH ×2 (09:57→21:10)
[2021-12-05] MEDS ORDERED: EPOETIN ALFA-EPBX 10,000 UNIT/1 ML VIAL IV PRN (10:00)
[2021-12-05] MEDS ORDERED: SODIUM CHLORIDE 0.9% 100 ML IV PRN (10:00)
--- NOTE | 2021-12-05 10:08 | Progress Note ---
Assessment and Plan - Patient Problems (1) Non-ST elevation myocardial infarction (NSTEMI) Current Visit: Yes Status: Acute Plan to address problem: Patient presented to the hospital with acute pulmonary edema and ECG evidence of ST depression of acute inferior lateral ischemia. Hospital course complicated by the further development of a right upper lobe pneumonia, respiratory failure, currently on the ventilator. Due to the patient's advanced age, frailty, multiple comorbidities, including advanced dementia and end-stage renal failure, she is not a candidate for aggressive and invasive cardiac evaluation and therapies. We will continue supportive management with medical therapy for coronary artery disease and heart failure as tolerated. Echocardiogram shows a severe dilated cardiomyopathy, ejection fraction 30 to 35%. Subjective Date of service: 12/05/21 Interval history: Patient is sedated, on the vent. On financial legal assistant, there is a mild sinus tachycardia with frequent PACs. Objective Vital Signs Temp Pulse Pulse Resp BP Pulse Ox 12/05/21 09:57 118 H 124/60 12/05/21 09:56 116 H 124/60 12/05/21 09:00 121 H 120/61 90 12/05/21 08:30 115 H 116/60 90 12/05/21 08:00 116 H 119 H 22 116/62 91 12/05/21 07:34 112 H 107/57 92 12/05/21 07:32 99.8 F H 12/05/21 07:30 120 H 107/57 93 12/05/21 07:00 116 H 110/58 93 12/05/21 06:30 115 H 109/55 93 12/05/21 06:00 113 H 100/47 92 12/05/21 05:30 116 H 103/55 91 12/05/21 05:00 113 H 99/51 93 12/05/21 04:30 120 H 99/51 92 12/05/21 04:00 124 H 104/47 91 12/05/21 03:57 119 H 12 95 12/05/21 03:30 116 H 96/37 92 12/05/21 03:26 99.3 F 12/05/21 03:22 119 H 119 H 16 93 12/05/21 03:00 117 H 96/37 94 12/05/21 02:30 114 H 102/39 95 12/05/21 02:00 117 H 93/36 95 12/05/21 01:30 108 H 93/40 95 12/05/21 01:00 114 H 93/40 94 12/05/21 00:30 117 H 110/55 89 12/05/21 00:00 116 H 0 L 110/55 94 12/04/21 23:51 99 F 12/04/21 23:34 117 H 20 93 12/04/21 23:31 113 H 12/04/21 23:30 109 H 111/60 95 12/04/21 23:28 114 H 103/49 95 12/04/21 23:00 112 H 103/49 95 12/04/21 22:30 118 H 102/56 94 12/04/21 22:00 115 H 108/50 93 12/04/21 21:30 120 H 124/64 90 12/04/21 21:00 117 H 128/59 92 12/04/21 20:30 114 H 128/59 95 12/04/21 20:00 121 H 119 H 18 122/59 93 12/04/21 19:55 116 H 12/04/21 19:45 120 H 129/62 95 12/04/21 19:39 98.8 F 12/04/21 19:30 117 H 132/66 96 12/04/21 19:00 123 H 132/66 94 12/04/21 18:31 120 H 130/64 12/04/21 18:30 125 H 130/64 96 12/04/21 18:00 120 H 130/66 94 12/04/21 17:30 125 H 132/64 95 12/04/21 17:00 115 H 129/65 96 12/04/21 16:30 119 H 131/65 96 12/04/21 16:07 98.9 F 12/04/21 16:00 117 H 115 H 14 122/57 95 12/04/21 15:30 113 H 131/65 95 12/04/21 15:17 117 H 128/73 96 12/04/21 15:00 121 H 128/73 93 12/04/21 14:52 113 H 118/43 12/04/21 14:30 112 H 118/43 95 12/04/21 14:00 107 H 118/50 96 12/04/21 13:30 107 H 121/48 98 12/04/21 13:00 107 H 115/52 98 12/04/21 12:30 105 H 100/55 99 12/04/21 12:00 98.9 F 103 H 126 H 15 101/54 98 12/04/21 11:36 98.9 F 12/04/21 11:31 107 H 110/58 99 12/04/21 11:25 102 H 135/60 98 12/04/21 11:00 103 H 135/60 97 12/04/21 10:30 136 H 128/67 95 12/04/21 10:08 136 H 142/70 - Physical Examination General: Cachectic, Other (Sedated, intubated on the vent) HEENT: Positive: Other (Pupils nonreactive) Neck: Positive: neck supple Cardiac: Positive: Irregularly Regular Lungs: Positive: Decreased Breath Sounds Neuro: Positive: Other (Sedated, intubated, on the vent) Abdomen: Positive: Soft Skin: Positive: Clear Extremities: Absent: edema - Labs and Meds Lipids 12/05/21 Range/Units 04:22 Triglycerides 280 H (2-149) mg/dL CBC 12/05/21 Range/Units 04:22 WBC 12.7 H (4.5-11.0) K/mm3 RBC 3.33 L (3.65-5.03) M/mm3 Hgb 9.6 L (10.1-14.3) gm/dl Hct 29.3 L (30.3-42.9) % Plt Count 195 (140-440) K/mm3 Comprehensive Metabolic Panel 12/05/21 Range/Units 04:22 Sodium 138 (137-145) mmol/L Potassium 4.0 (3.6-5.0) mmol/L Chloride 90.3 L (98-107) mmol/L Carbon Dioxide 25 D (22-30) mmol/L BUN 89 H (7-17) mg/dL Creatinine 8.8 H (0.6-1.2) mg/dL Glucose 216 H (65-100) mg/dL Calcium 8.0 L (8.4-10.2) mg/dL
[2021-12-05 10:26] LABS: ABG Base Excess 5.6 mmol/L (-2.0-3.0); ABG HCO3 28.8 mmol/L (20.0-26.0); ABG Methemoglobin 0.8 % (0.0-1.5); ABG Oxygen Saturation 78.6 % (95.0-99.0); ABG PCO2 36.3 mm Hg; ABG PH 7.518 pH Units (7.350-7.450); ABG PO2 43.4 mm Hg (80.0-90.0)
--- NOTE | 2021-12-05 11:39 | Progress Note ---
<KELLEY LIZ - Last Filed: 12/05/21 16:07> Assessment and Plan Assessment and plan: This is a 86-year-old AA female with known past medical history of hypertension, diabetes mellitus, PVD, and right AKA initially admitted to the floor for sepsis, ARF, and pneumonia versus pulmonary edema. Patient was a code met on 11/18 due to acute hypoxemic respiratory failure requiring intubation and ventilatory support. Hospital Course to Date: 12/03: Patient remains intubated and sedated. This am ABG noted, continue to wean Fio2 as tolerated. Patient's renal function continue to worsen, patient cur rently on bcab gtt per Nephrology. Per Nephro plan for possible discussion with family, patient might require HD. Acidosis is improving continue bcarb and IV abx per ID, trend lactic acid. 12/04: Overnight events noted, remains ST in the 110s this am, BP stable. Renal function continue to worsen, per nursing staff patient's POA is leaning towards HD. Plan for possible family meeting to further discuss patient's goal of care. This am ABG noted, most likely venous, SPO2 is 100%, tolerating vent. Continue to wean Fio2 as tolerated. 12/05: Family meeting with grandson today at the bedside. Thorough discussion with the attending in regards to patient's current status/condition and overall prognosis. Patient's grandson voiced understanding of the info given, stated that he knows his grandma is older but he would like to give her a fighting chance and want everything done including hemodialysis. Code status was also addressed, patient's POA stated that he would like full resuscitative measures at this time. Patient remains a FULL code. JUANJOSE Vascath inserted, plan for possible HD today per Nephro. Assessment and Plan #Acute Hypoxemic Respiratory Failure #Pulmonary Edema Vs #Pneumonia - Code met on 12/02 was intubated - Vent setting:A/C-55%,8,14,400 - This am ABG noted, PO2 in the 40s, vent setting adjustment per RT and CCM - CCM consulted, appreciate recommendations - Continue IV ABx and Nebs per CCM - VAP bundle addressed - Aspiration precaution HOB above 30 - Daily SBT and SAT trials as tolerated - Daily ABG and CXR - Continue SPO2 monitoring for SPO2 goal above 92% #Severe Sepsis #Pneumonia #Leukocytosis-improved #Lactic Acidosis/Metabolic acidosis - Imaging with bilateral pulmonary opacities - Presented with severe acidosis and leukocytosis - Patient remains aferbile - COVID PCR negative - Blood culture and sputum culture with NGTD - ID is on consult - Continue current IV Abx per ID - Continue to F/U on B.cult - Daily CBC monitor #Acute Kidney Injury(RAYNE) most likely ATN #Hypokalemia - No history of CKD per family - Renal function continue to worse, patient family wants HHD - Nephrology on consult, appreciated recommendation - Family wants everything done including HD - 12/05 VasCath inserted, plan for HD today - Strict intake and output - Palacio in place with oliguria - Avoid nephrotoxic medications; Renally dose medications - Monitor and replace electrolytes as needed - Trend BMP #Acute Metabolic Acidosis - Probably due to severe acidosis - Continue sedation for RASS goal of 0 to -2 - Avoid benzodiazepine to reduce the possibility of delirium - Prn analgesia for CPOT greater than 3 - Maintenance of sleep-wake cycle #Hypertension #Elevated BNP #Elevated troponin - BNP >2000 ; troponin 2.000 - could also be secondary to renal failure - 12/02 2D Echo EF 30-35% - Cardiology on consult, appreciated recommendations - No diuretic due to kidney function - Home meds resumed - Continue blood pressure monitor per protocol #Elevated D-dimer - COVID PCR negatine - BLE doppler negative - Continue SubQ heparin #Type 2 Diabetes mellitus - Continue SSI Q6hrs - Avoid Hypoglycemia - While critically ill target blood glucose of 140-180 #GI/DVT Prophylaxis - PPI- Pepcid - Continue AC- Heparin SubQ The high probability of a clinically significant, sudden or life threatening deterioration of the [multiple] system(s) required my full and direct attention, intervention and personal management. The aggregate critical care time was [60] minutes. This time is in addition to time spent performing reported procedures but includes the following: [x] Data Review and interpretation [x] Patient assessment and monitoring of vital signs [x] Documentation [x] Medication orders and management Disposition Plan: ICU Total Time Spent with Patient (Minutes): 60 History Interval history: Patient seen and examined at the bedside. Intubated and sedated on propofol. SVT again overnight, HR 150-170, X1 dose of IV Lopressor. ST on the monitor this am, VSS Hospitalist Physical - Constitutional Vitals: Temp Pulse Resp BP Pulse Ox 98.1 F 118 H 22 124/60 90 12/05/21 11:26 12/05/21 09:57 12/05/21 08:00 12/05/21 09:57 12/05/21 09:00 General appearance: Present: no acute distress, other (Intubated and Sedated) - EENT Eyes: Present: PERRL - Neck Neck: Present: normal ROM - Respiratory Respiratory effort: normal Respiratory: bilateral: rhonchi - Cardiovascular Rhythm: regular Heart Sounds: Present: S1 & S2 - Extremities Extremities: no ischemia, pulses intact, pulses symmetrical Extremity abnormal: edema - Peripheral Assessment Generalized Edema Type: Non-pitting Edema Degree: 1+ Capillary Refill: < 3 seconds Skin Temperature: Warm Peripheral Pulses: within normal limits - Abdominal General gastrointestinal: soft, non-distended, normal bowel sounds - Integumentary Integumentary: Present: warm, dry - Psychiatric Psychiatric: other (Intubated and Sedated) - Neurologic Neurologic: other (Intubated and Sedated) - Allied Health Allied health notes reviewed: nursing HEART Score - HEART Score Troponin: Troponin T 2.500 ng/mL (0.00-0.029) H* 12/02/21 13:51 Results - Labs CBC & Chem 7: 12/05/21 04:22 12/05/21 04:22 Labs: Laboratory Last Values WBC 12.7 K/mm3 (4.5-11.0) H 12/05/21 04:22 RBC 3.33 M/mm3 (3.65-5.03) L 12/05/21 04:22 Hgb 9.6 gm/dl (10.1-14.3) L 12/05/21 04:22 Hct 29.3 % (30.3-42.9) L 12/05/21 04:22 MCV 88 fl (79-97) 12/05/21 04:22 MCH 29 pg (28-32) 12/05/21 04:22 MCHC 33 % (30-34) 12/05/21 04:22 RDW 15.5 % (13.2-15.2) H 12/05/21 04:22 Plt Count 195 K/mm3 (140-440) 12/05/21 04:22 Lymph % (Auto) 6.3 % (13.4-35.0) L 12/02/21 01:24 [place] % (Auto) 11.7 % (0.0-7.3) H 12/02/21 01:24 Eos % (Auto) 0.0 % (0.0-4.3) 12/02/21 01:24 Baso % (Auto) 0.2 % (0.0-1.8) 12/02/21 01:24 Lymph # (Auto) 1.0 K/mm3 (1.2-5.4) L 12/02/21 01:24 [place] # (Auto) 1.8 K/mm3 (0.0-0.8) H 12/02/21 01:24 Eos # (Auto) 0.0 K/mm3 (0.0-0.4) 12/02/21 01:24 Baso # (Auto) 0.0 K/mm3 (0.0-0.1) 12/02/21 01:24 Add Manual Diff Complete 12/03/21 04:00 Total Counted 100 12/03/21 04:00 Seg Neutrophils % 81.8 % (40.0-70.0) H 12/02/21 01:24 Seg Neuts % (Manual) 67.0 % (40.0-70.0) 12/03/21 04:00 Band Neutrophils % 18.0 % 12/03/21 04:00 Lymphocytes % (Manual) 7.0 % (13.4-35.0) L 12/03/21 04:00 Reactive Lymphs % (Man) 0 % 12/03/21 04:00 Monocytes % (Manual) 3.0 % (0.0-7.3) 12/03/21 04:00 Eosinophils % (Manual) 0 % (0.0-4.3) 12/03/21 04:00 Basophils % (Manual) 0 % (0.0-1.8) 12/03/21 04:00 Metamyelocytes % 4.0 % 12/03/21 04:00 Myelocytes % 1.0 % 12/03/21 04:00 Promyelocytes % 0 % 12/03/21 04:00 Blast Cells % 0 % 12/03/21 04:00 Nucleated RBC % Not Reportable 12/03/21 04:00 Seg Neutrophils # 12.6 K/mm3 (1.8-7.7) H 12/02/21 01:24 Seg Neutrophils # Man 4.1 K/mm3 (1.8-7.7) 12/03/21 04:00 Band Neutrophils # 1.1 K/mm3 12/03/21 04:00 Lymphocytes # (Manual) 0.4 K/mm3 (1.2-5.4) L 12/03/21 04:00 Abs React Lymphs (Man) 0.0 K/mm3 12/03/21 04:00 Monocytes # (Manual) 0.2 K/mm3 (0.0-0.8) 12/03/21 04:00 Eosinophils # (Manual) 0.0 K/mm3 (0.0-0.4) 12/03/21 04:00 Basophils # (Manual) 0.0 K/mm3 (0.0-0.1) 12/03/21 04:00 Metamyelocytes # 0.2 K/mm3 12/03/21 04:00 Myelocytes # 0.1 K/mm3 12/03/21 04:00 Promyelocytes # 0.0 K/mm3 12/03/21 04:00 Blast Cells # 0.0 K/mm3 12/03/21 04:00 WBC Morphology Not Reportable 12/03/21 04:00 Hypersegmented Neuts Not Reportable 12/03/21 04:00 Hyposegmented Neuts Not Reportable 12/03/21 04:00 Hypogranular Neuts Not Reportable 12/03/21 04:00 Smudge Cells Not Reportable 12/03/21 04:00 Toxic Granulation Not Reportable 12/03/21 04:00 Toxic Vacuolation Not Reportable 12/03/21 04:00 Dohle Bodies Not Reportable 12/03/21 04:00 Pelger-Huet Anomaly Not Reportable 12/03/21 04:00 Randee Rods Not Reportable 12/03/21 04:00 Platelet Estimate Consistent w auto 12/03/21 04:00 Clumped Platelets Few 12/03/21 04:00 Plt Clumps, EDTA Not Reportable 12/03/21 04:00 Large Platelets Few 12/03/21 04:00 Giant Platelets Not Reportable 12/03/21 04:00 Platelet Satelliting Not Reportable 12/03/21 04:00 Plt Morphology Comment Not Reportable 12/03/21 04:00 RBC Morphology Not Reportable 12/03/21 04:00 Dimorphic RBCs Not Reportable 12/03/21 04:00 Polychromasia Not Reportable 12/03/21 04:00 Hypochromasia Not Reportable 12/03/21 04:00 Poikilocytosis Not Reportable 12/03/21 04:00 Anisocytosis Not Reportable 12/03/21 04:00 Microcytosis Not Reportable 12/03/21 04:00 Macrocytosis Not Reportable 12/03/21 04:00 Spherocytes Not Reportable 12/03/21 04:00 Pappenheimer Bodies Not Reportable 12/03/21 04:00 Sickle Cells Not Reportable 12/03/21 04:00 Target Cells Not Reportable 12/03/21 04:00 Tear Drop Cells Not Reportable 12/03/21 04:00 Ovalocytes Not Reportable 12/03/21 04:00 Helmet Cells Not Reportable 12/03/21 04:00 [place] Bodies Not Reportable 12/03/21 04:00 [place] Rings Not Reportable 12/03/21 04:00 Ania Cells 1+ 12/03/21 04:00 Bite Cells Not Reportable 12/03/21 04:00 Crenated Cell Not Reportable 12/03/21 04:00 Elliptocytes Not Reportable 12/03/21 04:00 Acanthocytes (Spur) Rare 12/03/21 04:00 Rouleaux Not Reportable 12/03/21 04:00 Hemoglobin C Crystals Not Reportable 12/03/21 04:00 Schistocytes Not Reportable 12/03/21 04:00 Malaria parasites Not Reportable 12/03/21 04:00 Josemanuel Bodies Not Reportable 12/03/21 04:00 Hem Pathologist Commnt No 12/03/21 04:00 PT 15.9 Sec. (12.2-14.9) H 12/02/21 01:24 INR 1.15 (0.87-1.13) H 12/02/21 01:24 APTT 31.5 Sec. (24.2-36.6) 12/02/21 01:24 D-Dimer 1461.68 ng/mlDDU (0-234) H 12/02/21 04:18 ABG pH 7.518 pH Units (7.350-7.450) H 12/05/21 10:15 ABG pCO2 36.3 mm Hg 12/05/21 10:15 ABG pO2 43.4 mm Hg (80.0-90.0) L 12/05/21 10:15 ABG HCO3 28.8 mmol/L (20.0-26.0) H 12/05/21 10:15 ABG O2 Saturation 78.6 % (95.0-99.0) L 12/05/21 10:15 ABG O2 Content 9.2 (0.0-44) 12/05/21 10:15 ABG Base Excess 5.6 mmol/L (-2.0-3.0) H 12/05/21 10:15 ABG Hemoglobin 8.4 gm/dl (12.0-16.0) L 12/05/21 10:15 ABG Carboxyhemoglobin 1.1 % (0.0-5.0) 12/05/21 10:15 ABG Methemoglobin 0.8 % (0.0-1.5) 12/05/21 10:15 VBG pH 7.167 (7.320-7.420) L* 12/02/21 01:24 Oxyhemoglobin 77.1 % (95.0-99.0) L 12/05/21 10:15 FiO2 55 % 12/05/21 10:15 Sodium 138 mmol/L (137-145) 12/05/21 04:22 Potassium 4.0 mmol/L (3.6-5.0) 12/05/21 04:22 Chloride 90.3 mmol/L (98-107) L 12/05/21 04:22 Carbon Dioxide 25 mmol/L (22-30) D 12/05/21 04:22 Anion Gap 27 mmol/L 12/05/21 04:22 BUN 89 mg/dL (7-17) H 12/05/21 04:22 Creatinine 8.8 mg/dL (0.6-1.2) H 12/05/21 04:22 Estimated GFR 4 ml/min 12/05/21 04:22 BUN/Creatinine Ratio 10 % 12/05/21 04:22 Glucose 216 mg/dL (65-100) H 12/05/21 04:22 POC Glucose 187 mg/dL (70-105) H 12/05/21 10:54 Lactic Acid 4.60 mmol/L (0.7-2.0) H* 12/04/21 04:18 Calcium 8.0 mg/dL (8.4-10.2) L 12/05/21 04:22 Phosphorus 4.60 mg/dL (2.5-4.5) H 12/05/21 04:22 Magnesium 2.20 mg/dL (1.7-2.3) 12/05/21 04:22 Ferritin 168.9 ng/mL (10.0-200.0) 12/02/21 04:18 Total Bilirubin 0.40 mg/dL (0.1-1.2) 12/02/21 01:24 AST 86 units/L (5-40) H 12/02/21 01:24 ALT 69 units/L (7-56) H 12/02/21 01:24 Alkaline Phosphatase 91 units/L (35-129) 12/02/21 01:24 Lactate Dehydrogenase 958 units/L (91-180) H 12/02/21 04:18 Total Creatine Kinase 254 units/L (30-135) H 12/02/21 01:24 CK-MB (CK-2) 20.2 ng/mL (0.0-4.0) H 12/02/21 01:24 CK-MB (CK-2) Rel Index 7.9 (0-4) H 12/02/21 01:24 Troponin T 2.500 ng/mL (0.00-0.029) H* 12/02/21 13:51 C-Reactive Protein 6.60 mg/dL (0.00-1.30) H 12/02/21 04:18 NT-Pro-B Natriuret Pep > 3500 pg/mL (0-900) H 12/02/21 01:24 Total Protein 7.7 g/dL (6.3-8.2) 12/02/21 01:24 Albumin 4.0 g/dL (3.9-5) 12/02/21 01:24 Albumin/Globulin Ratio 1.1 % 12/02/21 01:24 Triglycerides 280 mg/dL (2-149) H 12/05/21 04:22 Cholesterol 177 mg/dL (50-199) 12/02/21 01:24 LDL Cholesterol Direct 91 mg/dL (50-130) 12/02/21 01:24 HDL Cholesterol 74 mg/dL (40-59) H 12/02/21 01:24 Cholesterol/HDL Ratio 2.39 % 12/02/21 01:24 Procalcitonin 1.24 ng/mL (<0.15) 12/02/21 04:18 Urine Color Yellow (Yellow) 12/03/21 13:48 Urine Turbidity Hazy (Clear) 12/03/21 13:48 Urine pH 7.0 (5.0-7.0) 12/03/21 13:48 Ur Specific [place] 1.009 (1.003-1.030) 12/03/21 13:48 Urine Protein >500 mg/dL (Negative) 12/03/21 13:48 Urine Glucose (UA) 50 mg/dL (Negative) 12/03/21 13:48 Urine Ketones Neg mg/dL (Negative) 12/03/21 13:48 Urine Blood Mod (Negative) 12/03/21 13:48 Urine Nitrite Neg (Negative) 12/03/21 13:48 Urine Bilirubin Neg (Negative) 12/03/21 13:48 Urine Urobilinogen < 2.0 mg/dL (<2.0) 12/03/21 13:48 Ur Leukocyte Esterase Neg (Negative) 12/03/21 13:48 Urine WBC (Auto) 9.0 /HPF (0.0-6.0) H 12/03/21 13:48 Urine RBC (Auto) 5.0 /HPF (0.0-6.0) 12/03/21 13:48 U Epithel Cells (Auto) 2.0 /HPF (0-13.0) 12/03/21 13:48 Urine Bacteria (Auto) 1+ /HPF (Negative) 12/02/21 00:52 Urine Mucus Few /HPF 12/03/21 13:48 Urine Yeast (Budding) Few /HPF 12/02/21 00:52 Urine Creatinine 24.4 mg/dL (0.1-20.0) H 12/02/21 00:52 Protein/Creatinin Ratio 4.55 12/02/21 00:52 Urine Sodium 109 mmol/L 12/02/21 00:52 Urine Total Protein 111 mg/dL (5-11.8) H 12/02/21 00:52 Random Vancomycin 14.0 ug/mL (0-40.0) 12/05/21 04:22 Coronavirus (PCR) Negative (Negative) 12/02/21 09:00 Microbiology: Microbiology 12/02/21 00:52 Urine,Clean Catch Urine Culture - Final NO GROWTH AFTER 48 HOURS 12/02/21 01:46 Peripheral/Venous Blood Culture - Preliminary NO GROWTH AFTER 72 HOURS 12/02/21 01:24 Peripheral/Venous Blood Culture - Preliminary NO GROWTH AFTER 72 HOURS 12/02/21 19:48 Tracheal Aspirate Sputum Culture - Preliminary Palacio/IV: Voiding Method Indwelling Catheter Active Medications - Current Medications Current Medications: Generic Name Dose Route Start Last Admin Trade Name Freq PRN Reason Stop Dose Admin Acetaminophen 650 mg 12/02/21 04:37 Acetaminophen 325 Mg Tab PO Q4H PRN Pain MILD(1-3)/Fever >100.5/HYLTON Alprazolam 0.5 mg 12/02/21 11:30 12/05/21 04:40 Alprazolam 0.5 Mg Tab PO 0.5 mg Q8H PRN Administration Anxiety Amlodipine Besylate 10 mg 12/03/21 10:00 12/05/21 09:57 Amlodipine 10 Mg Tab PO 10 mg DAILY KHARI Administration Aspirin 81 mg 12/03/21 10:00 12/05/21 09:56 Aspirin 81 Mg Tab Chew PO 81 mg QDAY KHARI Administration Cilostazol 50 mg 12/02/21 22:00 12/05/21 09:56 Cilostazol 100 Mg Tab PO 50 mg BID KHARI Administration Clopidogrel Bisulfate 75 mg 12/03/21 10:00 12/05/21 09:57 Clopidogrel 75 Mg Tab PO 75 mg QDAY KHARI Administration Dextrose 0 ml 12/02/21 05:10 Dextrose 10% *Hypoglycemia IV PRN PRN Hypoglycemia Protocol Epoetin Lenny-epbx 10,000 unit 12/05/21 10:00 Epoetin Lenny-Epbx 10,000 Unit/1 Ml Vial IV ED PRN hemodialysis Famotidine 10 mg 12/04/21 22:00 12/05/21 09:56 Famotidine 10 Mg Tab PO 10 mg BID KHARI Administration Heparin Sodium (Porcine) 5,000 unit 12/02/21 06:00 12/05/21 05:40 Heparin 5,000 Unit/1 Ml Vial SUB-Q 5,000 unit Q8HR KHARI Administration Hydrophilic Ointment 1 applic 12/02/21 17:32 Lip Therapy Vaseline TP Q2HR PRN Dry Lips Cefepime HCl 1 gm in 100 mls @ 200 mls/hr 12/02/21 18:00 12/04/21 18:31 Cefepime/Ns 1 Gm/100 Ml IV 200 mls/hr QPM KHARI Administration Protocol Propofol 1,000 mg in 100 mls @ 1.839 mls/hr 12/02/21 18:00 12/05/21 06:30 Diprivan 10 Mg/Ml IV 5 mcg/kg/min TITR KHARI 1.839 mls/hr Titration Protocol 5 MCG/KG/MIN Sodium Chloride 100 mls @ 999 mls/hr 12/05/21 10:00 Nacl 0.9% IV ED PRN Hypotension Insulin Human Lispro 0 unit 12/03/21 00:00 12/05/21 06:09 Insulin Lispro 100 Unit/Ml SUB-Q 3 unit Q6HR KHARI Administration Protocol Levalbuterol HCl 0.63 mg 12/02/21 10:00 Levalbuterol 0.63 Mg/3 Ml Nebu IH Q8HRT PRN Shortness Of Breath Lorazepam 1 mg 12/02/21 14:22 12/02/21 15:18 Lorazepam 2 Mg/Ml Vial IV 1 mg Q6H PRN Administration Agitation Magnesium Hydroxide 30 ml 12/02/21 04:37 Magnesium Hydroxide (Mom) Oral Liqd Udc PO Q4H PRN Constipation Metoprolol Tartrate 25 mg 12/02/21 15:00 12/05/21 09:56 Metoprolol Tartrate 25 Mg Tab PO 25 mg QDAY KHARI Administration Morphine Sulfate 2 mg 12/02/21 04:37 12/04/21 10:10 Morphine 2 Mg/1 Ml Inj IV 2 mg Q4H PRN Administration Pain, Moderate (4-6) Morphine Sulfate 4 mg 12/02/21 04:37 Morphine 4 Mg/1 Ml Inj IV Q4H PRN Pain , Severe (7-10) Multi-Ingred Cream/Lotion/Oil/Oint 1 applic 12/02/21 17:32 Mineral Oil/Petrolatum, White Ophth Oint 3.5 Gm OU Q4HR PRN Dry Eye(s) Nitroglycerin 1 inch 12/03/21 14:00 12/05/21 09:57 Nitroglycerin 2% Oint 1 Gm TP 1 inch QIDNTG KHARI Administration Protocol Ondansetron HCl 4 mg 12/02/21 04:37 Ondansetron 4 Mg/2 Ml Inj IV Q8H PRN Nausea And Vomiting Pravastatin Sodium 80 mg 12/02/21 22:00 12/04/21 21:08 Pravastatin 80 Mg Tab PO 80 mg QHS KHARI Administration Senna/Docusate Sodium 1 tab 12/02/21 22:00 12/05/21 09:57 Sennosides/Docusate Sodium 8.6/50 Mg Tab FEEDTUBE 1 tab BID KHARI Administration Sodium Chloride 10 ml 12/02/21 10:00 12/05/21 09:58 Sodium Chloride 0.9% 10 Ml Flush Syringe IV 10 ml BID KHARI Administration Sodium Chloride 10 ml 12/02/21 04:37 Sodium Chloride 0.9% 10 Ml Flush Syringe IV PRN PRN LINE FLUSH Nutrition/Malnutrition Assess - Dietary Evaluation Nutrition/Malnutrition Findings: Nutrition Notes Start: 12/03/21 16:28 Freq: Status: Active Protocol: Document 12/03/21 16:29 ONI (Rec: 12/03/21 17:14 ONI [id number]) Nutrition Notes Need for Assessment generated from: MD Order,sub plant manager,MST Initial or Follow up Assessment Current Diagnosis Acute Kidney Injury,Diabetes, Sepsis,Hypertension, Respiratory Failure, Hyperlipidemia Other Pertinent Diagnosis Pneumonia, Metabolic Acidosis, Metabolic Encephalopathy, PVD , R-AKA. Current Diet NPO. TF-Nepro w/CARBSTEADY @ 27 ml/hr (since B 12/04). Labs/Tests 12/03: K 3.5, CO2 21, BUN 63, Crea 6.3, Glu 158. Pertinent Medications 12/03: Propofol 1000mg in 100 ml @ 3.678 ml/hr (97 Kcal), others nutritionally unremarkable. Height 5 ft 4 in Weight 61.3 kg [place] Body Weight (kg) 54.54 BMI 23.1 Intake Prior to Admission Good Weight change and time frame Pt states being unsure if loss body weight recently. Weight Status Appropriate Subjective/Other Information RD consult for skinr risk and risk of malnutrition assessments, and write/manage TF. Pt currently on NPO. Pt on Mechanical Ventilation. Pt shows no signs of concern for risk of malnutrition at the time, accordinf to Physical Assessment History notes. Pt shows no signs of concern for skin risk at the time, accordinf to Physical Assessment History notes. Pt has missing teeth, accordinf to Physical Assessment History notes. TF ordered. Percent of energy/protein needs met: Pt currently on NPO. Prescribed TF-Nepro w/ CARBSTEADY @ 27 ml/hr provides for energy/protein needs (1, 150 Kcal/52 g) -in addition, Propofol adds 97 Kcal- during LOS, 100% Kcal; 85% AA. Burn Absent Trauma Absent GI Symptoms None Food Allergy No Skin Integrity/Comment WNL. Current % PO Other Minimum of two criteria No #1 Nutrition Diagnosis Inadequate oral intake Etiology Pt on Mechanical Ventilation. As Evidenced by Signs and Symptoms Pt currently on NPO. Is patient on ventilator? Yes Is Patient Ambulatory and/or Out of Bed No REE-([facility]-confined to bed) [phone] Calculation Used for Recommendations [facility] Additional Notes Protein: 1-1.2 g/Kg; 61-73 g/ day. Fluids: 1 ml/Kcal, or as per MD. Nutrition Intervention Nutrition Support: Start Nepro w/CARBSTEADY @ 27 ml/hr. Flush: 100 ml water Q 4 hr, or as per MD. Kcal 1,150 Protein (gm) 52 Carbohydrates (gm) 103 Fat (gm) 61 Fluid (mL) 465 Fiber (gm) 8 % RDI: 100% Kcal; 85% AA. Goal #1 Provide at least 75% of energy /protein needs through Enteral Feeding during LOS. Goal #2 Maintain body weight within +/ -3% of admission body weight during LOS. Follow-Up By: 12/06/21 Additional Comments Continue monitoring TF tolerance and BM. <REMBERTO RODRIGUEZ - Last Filed: 12/06/21 07:08> Assessment and Plan Assessment and plan: I saw and evaluated the patient. I agree with the findings and the plan of care as documented in the Nurse Practitioner's~note, with the following corrections and additions. Hospitalist Physical - Constitutional Vitals: Temp Pulse Resp BP Pulse Ox 99.8 F H 113 H 18 112/56 94 12/06/21 03:22 12/06/21 06:01 12/06/21 04:00 12/06/21 06:01 12/06/21 06:01 HEART Score - HEART Score Troponin: Troponin T 2.500 ng/mL (0.00-0.029) H* 12/02/21 13:51 Results - Labs CBC & Chem 7: 12/06/21 04:35 12/06/21 04:35 Labs: Laboratory Last Values WBC 11.8 K/mm3 (4.5-11.0) H 12/06/21 04:35 RBC 2.99 M/mm3 (3.65-5.03) L 12/06/21 04:35 Hgb 8.9 gm/dl (10.1-14.3) L 12/06/21 04:35 Hct 26.1 % (30.3-42.9) L 12/06/21 04:35 MCV 87 fl (79-97) 12/06/21 04:35 MCH 30 pg (28-32) 12/06/21 04:35 MCHC 34 % (30-34) 12/06/21 04:35 RDW 15.2 % (13.2-15.2) 12/06/21 04:35 Plt Count 199 K/mm3 (140-440) 12/06/21 04:35 Lymph % (Auto) 6.3 % (13.4-35.0) L 12/02/21 01:24 [place] % (Auto) 11.7 % (0.0-7.3) H 12/02/21 01:24 Eos % (Auto) 0.0 % (0.0-4.3) 12/02/21 01:24 Baso % (Auto) 0.2 % (0.0-1.8) 12/02/21 01:24 Lymph # (Auto) 1.0 K/mm3 (1.2-5.4) L 12/02/21 01:24 [place] # (Auto) 1.8 K/mm3 (0.0-0.8) H 12/02/21 01:24 Eos # (Auto) 0.0 K/mm3 (0.0-0.4) 12/02/21 01:24 Baso # (Auto) 0.0 K/mm3 (0.0-0.1) 12/02/21 01:24 Add Manual Diff Complete 12/03/21 04:00 Total Counted 100 12/03/21 04:00 Seg Neutrophils % 81.8 % (40.0-70.0) H 12/02/21 01:24 Seg Neuts % (Manual) 67.0 % (40.0-70.0) 12/03/21 04:00 Band Neutrophils % 18.0 % 12/03/21 04:00 Lymphocytes % (Manual) 7.0 % (13.4-35.0) L 12/03/21 04:00 Reactive Lymphs % (Man) 0 % 12/03/21 04:00 Monocytes % (Manual) 3.0 % (0.0-7.3) 12/03/21 04:00 Eosinophils % (Manual) 0 % (0.0-4.3) 12/03/21 04:00 Basophils % (Manual) 0 % (0.0-1.8) 12/03/21 04:00 Metamyelocytes % 4.0 % 12/03/21 04:00 Myelocytes % 1.0 % 12/03/21 04:00 Promyelocytes % 0 % 12/03/21 04:00 Blast Cells % 0 % 12/03/21 04:00 Nucleated RBC % Not Reportable 12/03/21 04:00 Seg Neutrophils # 12.6 K/mm3 (1.8-7.7) H 12/02/21 01:24 Seg Neutrophils # Man 4.1 K/mm3 (1.8-7.7) 12/03/21 04:00 Band Neutrophils # 1.1 K/mm3 12/03/21 04:00 Lymphocytes # (Manual) 0.4 K/mm3 (1.2-5.4) L 12/03/21 04:00 Abs React Lymphs (Man) 0.0 K/mm3 12/03/21 04:00 Monocytes # (Manual) 0.2 K/mm3 (0.0-0.8) 12/03/21 04:00 Eosinophils # (Manual) 0.0 K/mm3 (0.0-0.4) 12/03/21 04:00 Basophils # (Manual) 0.0 K/mm3 (0.0-0.1) 12/03/21 04:00 Metamyelocytes # 0.2 K/mm3 12/03/21 04:00 Myelocytes # 0.1 K/mm3 12/03/21 04:00 Promyelocytes # 0.0 K/mm3 12/03/21 04:00 Blast Cells # 0.0 K/mm3 12/03/21 04:00 WBC Morphology Not Reportable 12/03/21 04:00 Hypersegmented Neuts Not Reportable 12/03/21 04:00 Hyposegmented Neuts Not Reportable 12/03/21 04:00 Hypogranular Neuts Not Reportable 12/03/21 04:00 Smudge Cells Not Reportable 12/03/21 04:00 Toxic Granulation Not Reportable 12/03/21 04:00 Toxic Vacuolation Not Reportable 12/03/21 04:00 Dohle Bodies Not Reportable 12/03/21 04:00 Pelger-Huet Anomaly Not Reportable 12/03/21 04:00 Randee Rods Not Reportable 12/03/21 04:00 Platelet Estimate Consistent w auto 12/03/21 04:00 Clumped Platelets Few 12/03/21 04:00 Plt Clumps, EDTA Not Reportable 12/03/21 04:00 Large Platelets Few 12/03/21 04:00 Giant Platelets Not Reportable 12/03/21 04:00 Platelet Satelliting Not Reportable 12/03/21 04:00 Plt Morphology Comment Not Reportable 12/03/21 04:00 RBC Morphology Not Reportable 12/03/21 04:00 Dimorphic RBCs Not Reportable 12/03/21 04:00 Polychromasia Not Reportable 12/03/21 04:00 Hypochromasia Not Reportable 12/03/21 04:00 Poikilocytosis Not Reportable 12/03/21 04:00 Anisocytosis Not Reportable 12/03/21 04:00 Microcytosis Not Reportable 12/03/21 04:00 Macrocytosis Not Reportable 12/03/21 04:00 Spherocytes Not Reportable 12/03/21 04:00 Pappenheimer Bodies Not Reportable 12/03/21 04:00 Sickle Cells Not Reportable 12/03/21 04:00 Target Cells Not Reportable 12/03/21 04:00 Tear Drop Cells Not Reportable 12/03/21 04:00 Ovalocytes Not Reportable 12/03/21 04:00 Helmet Cells Not Reportable 12/03/21 04:00 [place] Bodies Not Reportable 12/03/21 04:00 [place] Rings Not Reportable 12/03/21 04:00 [place] Cells 1+ 12/03/21 04:00 Bite Cells Not Reportable 12/03/21 04:00 Crenated Cell Not Reportable 12/03/21 04:00 Elliptocytes Not Reportable 12/03/21 04:00 Acanthocytes (Spur) Rare 12/03/21 04:00 [place] Not Reportable 12/03/21 04:00 Hemoglobin C Crystals Not Reportable 12/03/21 04:00 Schistocytes Not Reportable 12/03/21 04:00 Malaria parasites Not Reportable 12/03/21 04:00 [place] Bodies Not Reportable 12/03/21 04:00 Hem Pathologist Commnt No 12/03/21 04:00 PT 15.9 Sec. (12.2-14.9) H 12/02/21 01:24 INR 1.15 (0.87-1.13) H 12/02/21 01:24 APTT 31.5 Sec. (24.2-36.6) 12/02/21 01:24 D-Dimer 1461.68 ng/mlDDU (0-234) H 12/02/21 04:18 ABG pH 7.555 pH Units (7.350-7.450) H 12/06/21 06:05 ABG pCO2 31.5 mm Hg 12/06/21 06:05 ABG pO2 95.3 mm Hg (80.0-90.0) H 12/06/21 06:05 ABG HCO3 27.3 mmol/L (20.0-26.0) H 12/06/21 06:05 ABG O2 Saturation 97.8 % (95.0-99.0) 12/06/21 06:05 ABG O2 Content 12.4 (0.0-44) 12/06/21 06:05 ABG Base Excess 4.9 mmol/L (-2.0-3.0) H 12/06/21 06:05 ABG Hemoglobin 9.0 gm/dl (12.0-16.0) L 12/06/21 06:05 ABG Carboxyhemoglobin 1.3 % (0.0-5.0) 12/06/21 06:05 ABG Methemoglobin 0.4 % (0.0-1.5) 12/06/21 06:05 VBG pH 7.167 (7.320-7.420) L* 12/02/21 01:24 Oxyhemoglobin 96.2 % (95.0-99.0) 12/06/21 06:05 FiO2 75 % 12/06/21 06:05 Sodium 137 mmol/L (137-145) 12/06/21 04:35 Potassium 4.1 mmol/L (3.6-5.0) 12/06/21 04:35 Chloride 95.0 mmol/L (98-107) L 12/06/21 04:35 Carbon Dioxide 27 mmol/L (22-30) 12/06/21 04:35 Anion Gap 19 mmol/L 12/06/21 04:35 BUN 59 mg/dL (7-17) H 12/06/21 04:35 Creatinine 6.3 mg/dL (0.6-1.2) H 12/06/21 04:35 Estimated GFR 6 ml/min 12/06/21 04:35 BUN/Creatinine Ratio 9 % 12/06/21 04:35 Glucose 244 mg/dL (65-100) H 12/06/21 04:35 POC Glucose 251 mg/dL (70-105) H 12/06/21 05:37 Lactic Acid 4.60 mmol/L (0.7-2.0) H* 12/04/21 04:18 Calcium 9.3 mg/dL (8.4-10.2) D 12/06/21 04:35 Phosphorus 4.60 mg/dL (2.5-4.5) H 12/05/21 04:22 Magnesium 2.20 mg/dL (1.7-2.3) 12/05/21 04:22 Ferritin 168.9 ng/mL (10.0-200.0) 12/02/21 04:18 Total Bilirubin 0.40 mg/dL (0.1-1.2) 12/02/21 01:24 AST 86 units/L (5-40) H 12/02/21 01:24 ALT 69 units/L (7-56) H 12/02/21 01:24 Alkaline Phosphatase 91 units/L (35-129) 12/02/21 01:24 Lactate Dehydrogenase 958 units/L (91-180) H 12/02/21 04:18 Total Creatine Kinase 254 units/L (30-135) H 12/02/21 01:24 CK-MB (CK-2) 20.2 ng/mL (0.0-4.0) H 12/02/21 01:24 CK-MB (CK-2) Rel Index 7.9 (0-4) H 12/02/21 01:24 Troponin T 2.500 ng/mL (0.00-0.029) H* 12/02/21 13:51 C-Reactive Protein 6.60 mg/dL (0.00-1.30) H 12/02/21 04:18 NT-Pro-B Natriuret Pep > 3500 pg/mL (0-900) H 12/02/21 01:24 Total Protein 7.7 g/dL (6.3-8.2) 12/02/21 01:24 Albumin 4.0 g/dL (3.9-5) 12/02/21 01:24 Albumin/Globulin Ratio 1.1 % 12/02/21 01:24 Triglycerides 280 mg/dL (2-149) H 12/05/21 04:22 Cholesterol 177 mg/dL (50-199) 12/02/21 01:24 LDL Cholesterol Direct 91 mg/dL (50-130) 12/02/21 01:24 HDL Cholesterol 74 mg/dL (40-59) H 12/02/21 01:24 Cholesterol/HDL Ratio 2.39 % 12/02/21 01:24 Procalcitonin 1.24 ng/mL (<0.15) 12/02/21 04:18 Urine Color Yellow (Yellow) 12/03/21 13:48 Urine Turbidity Hazy (Clear) 12/03/21 13:48 Urine pH 7.0 (5.0-7.0) 12/03/21 13:48 Ur Specific [place] 1.009 (1.003-1.030) 12/03/21 13:48 Urine Protein >500 mg/dL (Negative) 12/03/21 13:48 Urine Glucose (UA) 50 mg/dL (Negative) 12/03/21 13:48 Urine Ketones Neg mg/dL (Negative) 12/03/21 13:48 Urine Blood Mod (Negative) 12/03/21 13:48 Urine Nitrite Neg (Negative) 12/03/21 13:48 Urine Bilirubin Neg (Negative) 12/03/21 13:48 Urine Urobilinogen < 2.0 mg/dL (<2.0) 12/03/21 13:48 Ur Leukocyte Esterase Neg (Negative) 12/03/21 13:48 Urine WBC (Auto) 9.0 /HPF (0.0-6.0) H 12/03/21 13:48 Urine RBC (Auto) 5.0 /HPF (0.0-6.0) 12/03/21 13:48 U Epithel Cells (Auto) 2.0 /HPF (0-13.0) 12/03/21 13:48 Urine Bacteria (Auto) 1+ /HPF (Negative) 12/02/21 00:52 Urine Mucus Few /HPF 12/03/21 13:48 Urine Yeast (Budding) Few /HPF 12/02/21 00:52 Urine Creatinine 24.4 mg/dL (0.1-20.0) H 12/02/21 00:52 Protein/Creatinin Ratio 4.55 12/02/21 00:52 Urine Sodium 109 mmol/L 12/02/21 00:52 Urine Total Protein 111 mg/dL (5-11.8) H 12/02/21 00:52 Random Vancomycin 14.0 ug/mL (0-40.0) 12/05/21 04:22 Coronavirus (PCR) Negative (Negative) 12/02/21 09:00 Hepatitis A IgM Ab Non-reactive (NonReactive) 12/05/21 04:22 Hep Bs Antigen Non-reactive (Negative) 12/05/21 04:22 Hep B Core IgM Ab Non-reactive (NonReactive) 12/05/21 04:22 Hepatitis C Antibody Non-reactive (NonReactive) 12/05/21 04:22 Microbiology: Microbiology 12/02/21 01:46 Peripheral/Venous Blood Culture - Preliminary NO GROWTH AFTER 4 DAYS 12/02/21 01:24 Peripheral/Venous Blood Culture - Preliminary NO GROWTH AFTER 4 DAYS 12/02/21 19:48 Tracheal Aspirate Sputum Culture - Final 12/02/21 00:52 Urine,Clean Catch Urine Culture - Final NO GROWTH AFTER 48 HOURS Palacio/IV: Voiding Method Indwelling Catheter Active Medications - Current Medications Current Medications: Generic Name Dose Route Start Last Admin Trade Name Freq PRN Reason Stop Dose Admin Acetaminophen 650 mg 12/02/21 04:37 Acetaminophen 325 Mg Tab PO Q4H PRN Pain MILD(1-3)/Fever >100.5/HYLTON Alprazolam 0.5 mg 12/02/21 11:30 12/05/21 04:40 Alprazolam 0.5 Mg Tab PO 0.5 mg Q8H PRN Administration Anxiety Amlodipine Besylate 10 mg 12/03/21 10:00 12/05/21 09:57 Amlodipine 10 Mg Tab PO 10 mg DAILY KHARI Administration Aspirin 81 mg 12/03/21 10:00 12/05/21 09:56 Aspirin 81 Mg Tab Chew PO 81 mg QDAY KHARI Administration Cilostazol 50 mg 12/02/21 22:00 12/05/21 21:10 Cilostazol 100 Mg Tab PO 50 mg BID KHARI Administration Clopidogrel Bisulfate 75 mg 12/03/21 10:00 12/05/21 09:57 Clopidogrel 75 Mg Tab PO 75 mg QDAY KHARI Administration Dextrose 0 ml 12/02/21 05:10 Dextrose 10% *Hypoglycemia IV PRN PRN Hypoglycemia Protocol Epoetin Lenny-epbx 10,000 unit 12/05/21 10:00 Epoetin Lenny-Epbx 10,000 Unit/1 Ml Vial IV ED PRN hemodialysis Famotidine 10 mg 12/04/21 22:00 12/05/21 21:10 Famotidine 10 Mg Tab PO 10 mg BID KHARI Administration Heparin Sodium (Porcine) 5,000 unit 12/02/21 06:00 12/05/21 21:09 Heparin 5,000 Unit/1 Ml Vial SUB-Q 5,000 unit Q8HR KHARI Administration Hydrophilic Ointment 1 applic 12/02/21 17:32 Lip Therapy Vaseline TP Q2HR PRN Dry Lips Cefepime HCl 1 gm in 100 mls @ 200 mls/hr 12/02/21 18:00 12/05/21 18:22 Cefepime/Ns 1 Gm/100 Ml IV 200 mls/hr QPM KHARI Administration Protocol Propofol 1,000 mg in 100 mls @ 1.839 mls/hr 12/02/21 18:00 12/05/21 23:27 Diprivan 10 Mg/Ml IV 10 mcg/kg/min TITR KHARI 3.678 mls/hr Titration Protocol 5 MCG/KG/MIN Sodium Chloride 100 mls @ 999 mls/hr 12/05/21 10:00 Nacl 0.9% IV ED PRN Hypotension Insulin Human Lispro 0 unit 12/03/21 00:00 12/06/21 05:42 Insulin Lispro 100 Unit/Ml SUB-Q 4 unit Q6HR KHARI Administration Protocol Levalbuterol HCl 0.63 mg 12/02/21 10:00 Levalbuterol 0.63 Mg/3 Ml Nebu IH Q8HRT PRN Shortness Of Breath Lorazepam 1 mg 12/02/21 14:22 12/02/21 15:18 Lorazepam 2 Mg/Ml Vial IV 1 mg Q6H PRN Administration Agitation Magnesium Hydroxide 30 ml 12/02/21 04:37 Magnesium Hydroxide (Mom) Oral Liqd Udc PO Q4H PRN Constipation Metoprolol Tartrate 25 mg 12/02/21 15:00 12/05/21 09:56 Metoprolol Tartrate 25 Mg Tab PO 25 mg QDAY [facility] Administration Morphine Sulfate 2 mg 12/02/21 04:37 12/04/21 10:10 Morphine 2 Mg/1 Ml Inj IV 2 mg Q4H PRN Administration Pain, Moderate (4-6) Morphine Sulfate 4 mg 12/02/21 04:37 Morphine 4 Mg/1 Ml Inj IV Q4H PRN Pain , Severe (7-10) Multi-Ingred Cream/Lotion/Oil/Oint 1 applic 12/02/21 17:32 Mineral Oil/Petrolatum, White Ophth Oint 3.5 Gm OU Q4HR PRN Dry Eye(s) Nitroglycerin 1 inch 12/03/21 14:00 12/06/21 05:39 Nitroglycerin 2% Oint 1 Gm TP Not Given QIDNTG [facility] Protocol Ondansetron HCl 4 mg 12/02/21 04:37 Ondansetron 4 Mg/2 Ml Inj IV Q8H PRN Nausea And Vomiting Pravastatin Sodium 80 mg 12/02/21 22:00 12/05/21 21:10 Pravastatin 80 Mg Tab PO 80 mg QHS [facility] Administration Senna/Docusate Sodium 1 tab 12/02/21 22:00 12/05/21 21:10 Sennosides/Docusate Sodium 8.6/50 Mg Tab FEEDTUBE 1 tab BID KHARI Administration Sodium Chloride 10 ml 12/02/21 10:00 12/05/21 21:10 Sodium Chloride 0.9% 10 Ml Flush Syringe IV 10 ml BID KHARI Administration Sodium Chloride 10 ml 12/02/21 04:37 Sodium Chloride 0.9% 10 Ml Flush Syringe IV PRN PRN LINE FLUSH Nutrition/Malnutrition Assess - Dietary Evaluation Nutrition/Malnutrition Findings: Nutrition Notes Start: 12/03/21 16:28 Freq: Status: Active Protocol: Document 12/05/21 13:45 NHALL (Rec: 12/05/21 13:55 NHALL [id number]) Nutrition Notes Initial or Follow up Brief Note Pertinent Medications Propofol at 1.839ml/hr ( Provides 49 kcal) Height 5 ft 4 in Weight 61.3 kg [place] Body Weight (kg) 54.54 BMI 23.1 Subjective/Other Information Current TF rate does not provide adequate pro to meet at least 75% estimated pro needs. Percent of energy/protein needs met: 94% energy 70% pro Is patient on ventilator? Yes Is Patient Ambulatory and/or Out of Bed No REE-([place]-confined to bed) 1247.220 Calculation Used for Recommendations [facility] Additional Notes Pro needs >1.2g/kg: >74g/day Fluid needs 1-1.5L/day Nutrition Intervention Nutrition Support: Increase [place] goal TF rate to 30ml/hr with 130ml water flush q4h. Kcal 1,296 Protein (gm) 58 Carbohydrates (gm) 116 Fat (gm) 69 Fluid (mL) 523 Fiber (gm) 9 Follow-Up By: 12/06/21 Additional Comments F/U: new TF, vent status
--- NOTE | 2021-12-05 14:06 | Procedure Note ---
Date of procedure: 12/05/21 Pre-op diagnosis: Acute Kidney Injury Post-op diagnosis: same Procedure: RIJ VasCath Placement Patient was evaluated and required temporary VasCath placement for Hemodialysis. Informed consent was obtained from patient's Prateek ANTHONY A time-out was completed verifying correct patient, procedure, site, and positioning. Hand hygiene were performed immediately prior to the procedure and sterile technique was used throughout the procedure. Previous Triple Lumen CVC and site were impregnated and prepped with iodine, then the site was then again scrubbed with chlorhexidine and draped in a sterile fashion. A guidewire exchange was performed under sterile condition the triple lumen catheter was removed and a 15cm trialysis catheter was introduced using the Seldinger technique. The catheter threaded smoothly over the guidewire and advanced easily into the vein. Brisk blood return was observed from each lumen and each lumen were flushed and clamped. 1% Lidocaine was used to anesthetize the surrounding skin area then the catheter was sutured in place, a Biopatch was placed at the insertion site, and covered with a sterile dressing. Patient tolerated the procedure well, no signs of any adverse reaction noted. CXR shows good placement without any complications. VasCath is ready for use. Total Time Spent with Patient (Minutes): 60 minutes Anesthesia: local Surgeon: KELLEY LIZ Estimated blood loss: minimal Condition: stable Disposition: ICU
--- NOTE | 2021-12-05 14:08 | Progress Note ---
Assessment and Plan Cultures: 12/02/2021 blood culture: no growth COVID-19 PCR: negative 12/02/2021 sputum culture: Usual respiratory mahesh 12/02/2021 urine culture: no growth A/P: 86-year-old female with hypertension, diabetes, peripheral vascular disease, prior right AKA admitted with shortness of breath: #Severe sepsis, secondary to pneumonia v/s fluid overload, acute respiratory failure: on the vent. #Severe metabolic acidosis, lactic acidosis #Acute renal failure: Renally adjust antibiotics. Planned for HD. #Acute encephalopathy: Likely metabolic. Recs: -Continue renally adjusted IV cefepime, complete 5 days -discontinued vancomycin Elizabeth Lane MD, FACP, [facility] O: [phone] F: [phone] Subjective Date of service: 12/05/21 Interval history: No fever. Remains on the vent. Planned for HD. Objective - Exam Narrative Exam: Physical Exam: Constitutional: sedated, intubated, on the vent Head, Ears, Nose: Normocephalic, atraumatic. External ears, nose normal Eyes: Conjunctivae/corneas clear. No icterus. No ptosis. Neck: intubated Oral: intubated Cardiovascular: S1, S2 + Respiratory: AE fair bilaterally and equal GI: Soft, bowel sounds hypo Musculoskeletal: No pedal edema, no cyanosis. R AKA well healed Skin: No rash or abscess Hem/Lymphatic: No palpable cervical or supraclavicular nodes. No lymphangitis Psych: no agitation Neurological: sedated, intubated, on the vent, exam limited - Constitutional Vitals: Vital Signs Temp Pulse Resp BP Pulse Ox 98.1 F 111 H 22 111/57 89 12/05/21 11:26 12/05/21 13:00 12/05/21 12:00 12/05/21 13:00 12/05/21 13:00 Temperature -Last 24 Hours Temperature 98.1 F Temperature 99.8 F Temperature 99.3 F Temperature 99 F Temperature 98.8 F Temperature 98.9 F - Labs CBC & Chem 7: 12/05/21 04:22 12/05/21 04:22 Labs: Abnormal lab results 12/04/21 12/04/21 12/05/21 Range/Units 15:46 23:30 04:22 WBC (4.5-11.0) K/mm3 RBC (3.65-5.03) M/mm3 Hgb (10.1-14.3) gm/dl Hct (30.3-42.9) % RDW (13.2-15.2) % ABG pH (7.350-7.450) pH Units ABG pO2 (80.0-90.0) mm Hg ABG HCO3 (20.0-26.0) mmol/L ABG O2 Saturation (95.0-99.0) % ABG Base Excess (-2.0-3.0) mmol/L ABG Hemoglobin (12.0-16.0) gm/dl Oxyhemoglobin (95.0-99.0) % Chloride 90.3 L (98-107) mmol/L BUN 89 H (7-17) mg/dL Creatinine 8.8 H (0.6-1.2) mg/dL Glucose 216 H (65-100) mg/dL POC Glucose 155 H 183 H (70-105) mg/dL Calcium 8.0 L (8.4-10.2) mg/dL Phosphorus 4.60 H (2.5-4.5) mg/dL Triglycerides 280 H (2-149) mg/dL 12/05/21 12/05/21 12/05/21 Range/Units 04:22 10:15 10:54 WBC 12.7 H (4.5-11.0) K/mm3 RBC 3.33 L (3.65-5.03) M/mm3 Hgb 9.6 L (10.1-14.3) gm/dl Hct 29.3 L (30.3-42.9) % RDW 15.5 H (13.2-15.2) % ABG pH 7.518 H (7.350-7.450) pH Units ABG pO2 43.4 L (80.0-90.0) mm Hg ABG HCO3 28.8 H (20.0-26.0) mmol/L ABG O2 Saturation 78.6 L (95.0-99.0) % ABG Base Excess 5.6 H (-2.0-3.0) mmol/L ABG Hemoglobin 8.4 L (12.0-16.0) gm/dl Oxyhemoglobin 77.1 L (95.0-99.0) % Chloride (98-107) mmol/L BUN (7-17) mg/dL Creatinine (0.6-1.2) mg/dL Glucose (65-100) mg/dL POC Glucose 187 H (70-105) mg/dL Calcium (8.4-10.2) mg/dL Phosphorus (2.5-4.5) mg/dL Triglycerides (2-149) mg/dL 12/05/21 Range/Units 11:57 WBC (4.5-11.0) K/mm3 RBC (3.65-5.03) M/mm3 Hgb (10.1-14.3) gm/dl Hct (30.3-42.9) % RDW (13.2-15.2) % ABG pH (7.350-7.450) pH Units ABG pO2 (80.0-90.0) mm Hg ABG HCO3 (20.0-26.0) mmol/L ABG O2 Saturation (95.0-99.0) % ABG Base Excess (-2.0-3.0) mmol/L ABG Hemoglobin (12.0-16.0) gm/dl Oxyhemoglobin (95.0-99.0) % Chloride (98-107) mmol/L BUN (7-17) mg/dL Creatinine (0.6-1.2) mg/dL Glucose (65-100) mg/dL POC Glucose 196 H (70-105) mg/dL Calcium (8.4-10.2) mg/dL Phosphorus (2.5-4.5) mg/dL Triglycerides (2-149) mg/dL
--- NOTE | 2021-12-05 14:08 | XRay Report ---
CHEST 1 VIEW 12/05/2021 1:01 PM INDICATION / CLINICAL INFORMATION: Vas-Cath placement. COMPARISON: Earlier today at 5:25 AM. FINDINGS: SUPPORT DEVICES: There is a new large bore right jugular CVL with the tip overlying the mid SVC. The positions of the endotracheal tube and nasogastric tube have not changed. HEART / MEDIASTINUM: Unchanged. 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 No new abnormality. No pneumothorax. ADDITIONAL FINDINGS: No significant additional findings. IMPRESSION: Right jugular Vas-Cath placement without complication. Signer Name: Esteban Wheatley MD Signed: 12/05/2021 2:03 PM Workstation Name: [email or web address]
--- NOTE | 2021-12-05 14:42 | Progress Note ---
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 The grandson wants full aggressive care fro his grandmother. - vasopressors if needed to keep > 65 mmHg - titrate supplemental oxygen SpO2 keep 89-92% - continue Daily SAT and SBT assessment as tolerated - VAP bundle addressed, aspiration HOB>30 - continue lung protective strategies, continue with pressure control mode Decrease PEEP to 8 follow up ABG. Continue to monitor airway pressure to keep Plat <30 - continue bronchodilators with pulmonary hygiene per RT - wean per pulmonary driven protocols otherwise - continue accuchecks with glycemic control per SSI (While critically ill target blood glucose of 140-180 mg/dL; avoid hypoglycemia) - sedation prn for target RASS 0 to -1 - avoid nephrotoxins, renally dose all medications - continue to avoid benzodiazepines , reduce the possibility of delirium - Antibiotics per ID recommendations - prn analgesia per CPOT score >3 - Maintenance of sleep-wake cycle, avoid delirium - continue enteral nutritional support - bolus intermittent feeding while awaiting tube feeding pump - Stress ulcer and VTE prophylaxis - PT/OT/ROM exercise - continue mobilit, off laoding, and frequent turning per facility protocol to prevent pressure ulcers - Monitor hemodynamics closely - continue other care per attending / other consultants COVID SPECIFIC INTERVENTIONS - COVID-19 PCR negative CONDITION: CRITICAL PROGNOSIS: GUARDED CODE STATUS: FULL CODE The high probability of a clinically significant, sudden or life-threatening deterioration of the [respiratory, cardiovascular, renal & neurologic] system(s) required my full and direct attention, intervention and personal management. The aggregate critical care time was [35] minutes without overlap. Time includes spent on; [x] Data Review and interpretation [x] Patient assessment and monitoring of vital signs [x] Documentation [x] Medication orders and management Subjective Date of service: 12/05/21 Interval history: This is a 86-year-old AA female with known past medical history of hypertension, diabetes mellitus, PVD, and right AKA initially admitted to the floor for sepsis, ARF, and pneumonia versus pulmonary edema. Patient was a code met on 12/02 due to acute hypoxemic respiratory failure requiring intubation and ventilatory support. Follow up: For acute hypoxemic resp failure on MVS; RAYNE ; Acute on chronic metabolic encephalopathy; RAYNE Seen and examined. Vitals,labs, medications, chart and imaging reviewed. Episodes of tachycardia- 12 lead EKG done which I reviewed and it shows sinus tachycardia with PACs and PVCs Remains unresponsive with episodes of agitation- on Propofol at 10mcg Palacio in place, remains anuric Remains on PCV Pi 22/+10/60% Discussed with respiratory and nursing care team Objective - Exam Narrative Exam: General appearance: Present: no acute distress, other (Intubated and Sedated) - EENT Eyes: Present: PERRL Left mastectomy scar RIJ CVL NGT in nares - Respiratory Respiratory effort: normal Respiratory: bilateral: diminished - Cardiovascular Rhythm: regular Heart Sounds: Present: S1 & S2 - Extremities Extremities: no ischemia, pulses intact, pulses symmetrical s/p right AKA Extremity abnormal: edema - Peripheral Assessment Generalized Edema Type: Non-pitting Edema Degree: 1+ Capillary Refill: < 3 seconds Skin Temperature: Warm Peripheral Pulses: within normal limits - Abdominal General gastrointestinal: soft, non-distended, normal bowel sounds Palacio in place - Integumentary Integumentary: Present: warm, dry - Psychiatric Psychiatric: other (Intubated and Sedated) - Neurologic Neurologic: other (Intubated and Sedated) Vital Signs - 12hr 12/05/21 12/05/21 12/05/21 03:00 03:22 03:26 Temperature 99.3 F Pulse Rate 117 H 119 H Pulse Rate [ 119 H From Monitor] Respiratory 16 Rate Blood Pressure 96/37 O2 Sat by Pulse 94 93 Oximetry 12/05/21 12/05/21 12/05/21 03:30 03:57 04:00 Temperature Pulse Rate 116 H 119 H 124 H Pulse Rate [ From Monitor] Respiratory 12 Rate Blood Pressure 96/37 104/47 O2 Sat by Pulse 92 95 91 Oximetry 12/05/21 12/05/21 12/05/21 04:30 05:00 05:30 Temperature Pulse Rate 120 H 113 H 116 H Pulse Rate [ From Monitor] Respiratory Rate Blood Pressure 99/51 99/51 103/55 O2 Sat by Pulse 92 93 91 Oximetry 12/05/21 12/05/21 12/05/21 06:00 06:30 07:00 Temperature Pulse Rate 113 H 115 H 116 H Pulse Rate [ From Monitor] Respiratory Rate Blood Pressure 100/47 109/55 110/58 O2 Sat by Pulse 92 93 93 Oximetry 12/05/21 12/05/21 12/05/21 07:30 07:32 07:34 Temperature 99.8 F H Pulse Rate 120 H 112 H Pulse Rate [ From Monitor] Respiratory Rate Blood Pressure 107/57 107/57 O2 Sat by Pulse 93 92 Oximetry 12/05/21 12/05/21 12/05/21 08:00 08:30 09:00 Temperature Pulse Rate 116 H 115 H 121 H Pulse Rate [ 119 H From Monitor] Respiratory 22 Rate Blood Pressure 116/62 116/60 120/61 O2 Sat by Pulse 91 90 90 Oximetry 12/05/21 12/05/21 12/05/21 09:30 09:56 09:57 Temperature Pulse Rate 117 H 116 H 118 H Pulse Rate [ From Monitor] Respiratory Rate Blood Pressure 124/60 124/60 124/60 O2 Sat by Pulse 90 Oximetry 12/05/21 12/05/21 12/05/21 10:00 10:30 11:00 Temperature Pulse Rate 121 H 111 H 110 H Pulse Rate [ From Monitor] Respiratory Rate Blood Pressure 121/62 115/57 110/54 O2 Sat by Pulse 90 92 92 Oximetry 12/05/21 12/05/21 12/05/21 11:26 11:30 11:38 Temperature 98.1 F Pulse Rate 111 H 109 H Pulse Rate [ From Monitor] Respiratory Rate Blood Pressure 109/56 109/56 O2 Sat by Pulse 92 92 Oximetry 12/05/21 12/05/21 12/05/21 12:00 12:30 13:00 Temperature Pulse Rate 108 H 104 H 111 H Pulse Rate [ 116 H From Monitor] Respiratory 22 Rate Blood Pressure 113/52 106/51 111/57 O2 Sat by Pulse 93 92 89 Oximetry 12/05/21 14:25 Temperature Pulse Rate 109 H Pulse Rate [ From Monitor] Respiratory Rate Blood Pressure 102/51 O2 Sat by Pulse Oximetry CBC and BMP: 12/05/21 04:22 12/05/21 04:22 ABG, PT/INR, D-dimer: ABG ABG pH 7.518 pH Units (7.350-7.450) H 12/05/21 10:15 ABG pCO2 36.3 mm Hg 12/05/21 10:15 ABG pO2 43.4 mm Hg (80.0-90.0) L 12/05/21 10:15 ABG O2 Saturation 78.6 % (95.0-99.0) L 12/05/21 10:15 PT/INR, D-dimer PT 15.9 Sec. (12.2-14.9) H 12/02/21 01:24 INR 1.15 (0.87-1.13) H 12/02/21 01:24 D-Dimer 1461.68 ng/mlDDU (0-234) H 12/02/21 04:18 Abnormal lab findings: Abnormal Labs 12/02/21 12/02/21 12/02/21 00:52 00:52 01:24 WBC 15.4 H RBC Hgb Hct MCHC RDW 15.8 H Lymph % (Auto) 6.3 L [place] % (Auto) 11.7 H Lymph # (Auto) 1.0 L [place] # (Auto) 1.8 H Seg Neutrophils % 81.8 H Lymphocytes % (Manual) Seg Neutrophils # 12.6 H Lymphocytes # (Manual) PT INR D-Dimer ABG pH ABG pO2 ABG HCO3 ABG O2 Saturation ABG Base Excess ABG Hemoglobin VBG pH Oxyhemoglobin Sodium Potassium Chloride Carbon Dioxide BUN Creatinine Glucose POC Glucose Lactic Acid Calcium Phosphorus AST ALT Lactate Dehydrogenase Total Creatine Kinase CK-MB (CK-2) CK-MB (CK-2) Rel Index Troponin T C-Reactive Protein NT-Pro-B Natriuret Pep Triglycerides HDL Cholesterol Urine WBC (Auto) 27.0 H Urine Creatinine 24.4 H Urine Total Protein 111 H 12/02/21 12/02/21 12/02/21 01:24 01:24 01:24 WBC RBC Hgb Hct MCHC RDW Lymph % (Auto) [place] % (Auto) Lymph # (Auto) [place] # (Auto) Seg Neutrophils % Lymphocytes % (Manual) Seg Neutrophils # Lymphocytes # (Manual) PT 15.9 H INR 1.15 H D-Dimer ABG pH ABG pO2 ABG HCO3 ABG O2 Saturation ABG Base Excess ABG Hemoglobin VBG pH Oxyhemoglobin Sodium Potassium 3.5 L Chloride Carbon Dioxide 4 L* BUN 43 H Creatinine 5.1 H Glucose 239 H POC Glucose Lactic Acid 15.70 H* Calcium Phosphorus AST 86 H ALT 69 H Lactate Dehydrogenase Total Creatine Kinase 254 H CK-MB (CK-2) 20.2 H CK-MB (CK-2) Rel Index 7.9 H Troponin T C-Reactive Protein NT-Pro-B Natriuret Pep Triglycerides HDL Cholesterol Urine WBC (Auto) Urine Creatinine Urine Total Protein 12/02/21 12/02/21 12/02/21 01:24 01:24 04:18 WBC RBC Hgb Hct MCHC RDW Lymph % (Auto) [place] % (Auto) Lymph # (Auto) [place] # (Auto) Seg Neutrophils % Lymphocytes % (Manual) Seg Neutrophils # Lymphocytes # (Manual) PT INR D-Dimer 1461.68 H ABG pH ABG pO2 ABG HCO3 ABG O2 Saturation ABG Base Excess ABG Hemoglobin VBG pH 7.167 L* Oxyhemoglobin Sodium Potassium Chloride Carbon Dioxide BUN Creatinine Glucose POC Glucose Lactic Acid Calcium Phosphorus AST ALT Lactate Dehydrogenase Total Creatine Kinase CK-MB (CK-2) CK-MB (CK-2) Rel Index Troponin T 2.600 H* C-Reactive Protein NT-Pro-B Natriuret Pep > 3500 H Triglycerides HDL Cholesterol 74 H Urine WBC (Auto) Urine Creatinine Urine Total Protein 12/02/21 12/02/21 12/02/21 04:18 04:18 10:47 WBC RBC Hgb Hct MCHC RDW Lymph % (Auto) [place] % (Auto) Lymph # (Auto) [place] # (Auto) Seg Neutrophils % Lymphocytes % (Manual) Seg Neutrophils # Lymphocytes # (Manual) PT INR D-Dimer ABG pH ABG pO2 ABG HCO3 ABG O2 Saturation ABG Base Excess ABG Hemoglobin VBG pH Oxyhemoglobin Sodium Potassium Chloride Carbon Dioxide 7 L* BUN 51 H Creatinine 5.9 H Glucose 255 H 224 H POC Glucose Lactic Acid 15.40 H* Calcium Phosphorus AST ALT Lactate Dehydrogenase 958 H Total Creatine Kinase CK-MB (CK-2) CK-MB (CK-2) Rel Index Troponin T C-Reactive Protein 6.60 H NT-Pro-B Natriuret Pep Triglycerides HDL Cholesterol Urine WBC (Auto) Urine Creatinine Urine Total Protein 12/02/21 12/02/21 12/02/21 10:53 13:51 13:51 WBC RBC Hgb Hct MCHC RDW Lymph % (Auto) [place] % (Auto) Lymph # (Auto) [place] # (Auto) Seg Neutrophils % Lymphocytes % (Manual) Seg Neutrophils # Lymphocytes # (Manual) PT INR D-Dimer ABG pH ABG pO2 ABG HCO3 ABG O2 Saturation ABG Base Excess ABG Hemoglobin VBG pH Oxyhemoglobin Sodium Potassium Chloride Carbon Dioxide BUN Creatinine Glucose POC Glucose 194 H Lactic Acid 11.70 H* Calcium Phosphorus AST ALT Lactate Dehydrogenase Total Creatine Kinase CK-MB (CK-2) CK-MB (CK-2) Rel Index Troponin T 2.500 H* C-Reactive Protein NT-Pro-B Natriuret Pep Triglycerides HDL Cholesterol Urine WBC (Auto) Urine Creatinine Urine Total Protein 12/02/21 12/02/21 12/02/21 20:31 22:56 22:56 WBC RBC Hgb Hct MCHC RDW Lymph % (Auto) [place] % (Auto) Lymph # (Auto) [place] # (Auto) Seg Neutrophils % Lymphocytes % (Manual) Seg Neutrophils # Lymphocytes # (Manual) PT INR D-Dimer ABG pH ABG pO2 156.2 H ABG HCO3 15.4 L ABG O2 Saturation ABG Base Excess -8.7 L ABG Hemoglobin VBG pH Oxyhemoglobin Sodium 147 H Potassium 3.4 L Chloride Carbon Dioxide 18 L D BUN 59 H Creatinine 6.2 H Glucose 150 H POC Glucose Lactic Acid 6.10 H* Calcium 8.3 L Phosphorus AST ALT Lactate Dehydrogenase Total Creatine Kinase CK-MB (CK-2) CK-MB (CK-2) Rel Index Troponin T C-Reactive Protein NT-Pro-B Natriuret Pep Triglycerides HDL Cholesterol Urine WBC (Auto) Urine Creatinine Urine Total Protein 12/03/21 12/03/21 12/03/21 00:25 00:42 04:00 WBC RBC Hgb Hct MCHC RDW 15.4 H Lymph % (Auto) [place] % (Auto) Lymph # (Auto) [place] # (Auto) Seg Neutrophils % Lymphocytes % (Manual) 7.0 L Seg Neutrophils # Lymphocytes # (Manual) 0.4 L PT INR D-Dimer ABG pH ABG pO2 ABG HCO3 ABG O2 Saturation ABG Base Excess ABG Hemoglobin VBG pH Oxyhemoglobin Sodium Potassium Chloride Carbon Dioxide BUN Creatinine Glucose POC Glucose 150 H Lactic Acid 5.80 H* Calcium Phosphorus AST ALT Lactate Dehydrogenase Total Creatine Kinase CK-MB (CK-2) CK-MB (CK-2) Rel Index Troponin T C-Reactive Protein NT-Pro-B Natriuret Pep Triglycerides HDL Cholesterol Urine WBC (Auto) Urine Creatinine Urine Total Protein 12/03/21 12/03/21 12/03/21 04:00 06:14 08:35 WBC RBC Hgb Hct MCHC RDW Lymph % (Auto) [place] % (Auto) Lymph # (Auto) [place] # (Auto) Seg Neutrophils % Lymphocytes % (Manual) Seg Neutrophils # Lymphocytes # (Manual) PT INR D-Dimer ABG pH 7.533 H ABG pO2 120.9 H ABG HCO3 ABG O2 Saturation ABG Base Excess ABG Hemoglobin 11.9 L VBG pH Oxyhemoglobin Sodium Potassium 3.5 L Chloride Carbon Dioxide 21 L BUN 63 H Creatinine 6.3 H Glucose 158 H POC Glucose 145 H Lactic Acid Calcium 7.9 L Phosphorus AST ALT Lactate Dehydrogenase Total Creatine Kinase CK-MB (CK-2) CK-MB (CK-2) Rel Index Troponin T C-Reactive Protein NT-Pro-B Natriuret Pep Triglycerides HDL Cholesterol Urine WBC (Auto) Urine Creatinine Urine Total Protein 12/03/21 12/03/21 12/03/21 12:35 13:48 15:51 WBC RBC Hgb Hct MCHC RDW Lymph % (Auto) [place] % (Auto) Lymph # (Auto) [place] # (Auto) Seg Neutrophils % Lymphocytes % (Manual) Seg Neutrophils # Lymphocytes # (Manual) PT INR D-Dimer ABG pH ABG pO2 ABG HCO3 ABG O2 Saturation ABG Base Excess ABG Hemoglobin VBG pH Oxyhemoglobin Sodium Potassium Chloride Carbon Dioxide BUN Creatinine Glucose POC Glucose 151 H 168 H Lactic Acid Calcium Phosphorus AST ALT Lactate Dehydrogenase Total Creatine Kinase CK-MB (CK-2) CK-MB (CK-2) Rel Index Troponin T C-Reactive Protein NT-Pro-B Natriuret Pep Triglycerides HDL Cholesterol Urine WBC (Auto) 9.0 H Urine Creatinine Urine Total Protein 12/03/21 12/03/21 12/03/21 16:20 16:35 23:21 WBC RBC Hgb Hct MCHC RDW Lymph % (Auto) [place] % (Auto) Lymph # (Auto) [place] # (Auto) Seg Neutrophils % Lymphocytes % (Manual) Seg Neutrophils # Lymphocytes # (Manual) PT INR D-Dimer ABG pH ABG pO2 ABG HCO3 ABG O2 Saturation ABG Base Excess ABG Hemoglobin VBG pH Oxyhemoglobin Sodium Potassium Chloride 92.3 L Carbon Dioxide BUN 67 H Creatinine 7.1 H Glucose 160 H POC Glucose 158 H 161 H Lactic Acid Calcium 7.3 L Phosphorus AST ALT Lactate Dehydrogenase Total Creatine Kinase CK-MB (CK-2) CK-MB (CK-2) Rel Index Troponin T C-Reactive Protein NT-Pro-B Natriuret Pep Triglycerides HDL Cholesterol Urine WBC (Auto) Urine Creatinine Urine Total Protein 12/04/21 12/04/21 12/04/21 04:18 04:18 04:18 WBC RBC 3.29 L Hgb 10.0 L Hct 28.4 L D MCHC 35 H RDW 15.4 H Lymph % (Auto) [place] % (Auto) Lymph # (Auto) [place] # (Auto) Seg Neutrophils % Lymphocytes % (Manual) Seg Neutrophils # Lymphocytes # (Manual) PT INR D-Dimer ABG pH ABG pO2 ABG HCO3 ABG O2 Saturation ABG Base Excess ABG Hemoglobin VBG pH Oxyhemoglobin Sodium Potassium 3.5 L Chloride 91.5 L Carbon Dioxide 33 H D BUN 74 H Creatinine 7.5 H Glucose 155 H POC Glucose Lactic Acid 4.60 H* Calcium 7.2 L Phosphorus 4.60 H AST ALT Lactate Dehydrogenase Total Creatine Kinase CK-MB (CK-2) CK-MB (CK-2) Rel Index Troponin T C-Reactive Protein NT-Pro-B Natriuret Pep Triglycerides HDL Cholesterol Urine WBC (Auto) Urine Creatinine Urine Total Protein 12/04/21 12/04/21 12/04/21 10:29 11:08 15:46 WBC RBC Hgb Hct MCHC RDW Lymph % (Auto) [place] % (Auto) Lymph # (Auto) [place] # (Auto) Seg Neutrophils % Lymphocytes % (Manual) Seg Neutrophils # Lymphocytes # (Manual) PT INR D-Dimer ABG pH 7.504 H ABG pO2 40.8 L ABG HCO3 30.1 H ABG O2 Saturation 75.1 L ABG Base Excess 6.6 H ABG Hemoglobin 10.2 L VBG pH Oxyhemoglobin 73.7 L Sodium Potassium Chloride Carbon Dioxide BUN Creatinine Glucose POC Glucose 146 H 155 H Lactic Acid Calcium Phosphorus AST ALT Lactate Dehydrogenase Total Creatine Kinase CK-MB (CK-2) CK-MB (CK-2) Rel Index Troponin T C-Reactive Protein NT-Pro-B Natriuret Pep Triglycerides HDL Cholesterol Urine WBC (Auto) Urine Creatinine Urine Total Protein 12/04/21 12/05/21 12/05/21 23:30 04:22 04:22 WBC 12.7 H RBC 3.33 L Hgb 9.6 L Hct 29.3 L MCHC RDW 15.5 H Lymph % (Auto) [place] % (Auto) Lymph # (Auto) [place] # (Auto) Seg Neutrophils % Lymphocytes % (Manual) Seg Neutrophils # Lymphocytes # (Manual) PT INR D-Dimer ABG pH ABG pO2 ABG HCO3 ABG O2 Saturation ABG Base Excess ABG Hemoglobin VBG pH Oxyhemoglobin Sodium Potassium Chloride 90.3 L Carbon Dioxide BUN 89 H Creatinine 8.8 H Glucose 216 H POC Glucose 183 H Lactic Acid Calcium 8.0 L Phosphorus 4.60 H AST ALT Lactate Dehydrogenase Total Creatine Kinase CK-MB (CK-2) CK-MB (CK-2) Rel Index Troponin T C-Reactive Protein NT-Pro-B Natriuret Pep Triglycerides 280 H HDL Cholesterol Urine WBC (Auto) Urine Creatinine Urine Total Protein 12/05/21 12/05/21 12/05/21 10:15 10:54 11:57 WBC RBC Hgb Hct MCHC RDW Lymph % (Auto) [place] % (Auto) Lymph # (Auto) [place] # (Auto) Seg Neutrophils % Lymphocytes % (Manual) Seg Neutrophils # Lymphocytes # (Manual) PT INR D-Dimer ABG pH 7.518 H ABG pO2 43.4 L ABG HCO3 28.8 H ABG O2 Saturation 78.6 L ABG Base Excess 5.6 H ABG Hemoglobin 8.4 L VBG pH Oxyhemoglobin 77.1 L Sodium Potassium Chloride Carbon Dioxide BUN Creatinine Glucose POC Glucose 187 H 196 H Lactic Acid Calcium Phosphorus AST ALT Lactate Dehydrogenase Total Creatine Kinase CK-MB (CK-2) CK-MB (CK-2) Rel Index Troponin T C-Reactive Protein NT-Pro-B Natriuret Pep Triglycerides HDL Cholesterol Urine WBC (Auto) Urine Creatinine Urine Total Protein Chest x-ray: image reviewed Allied health notes reviewed: RT
--- NOTE | 2021-12-05 15:05 | Progress Note ---
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 HD catheter will be placed for HD Airway pressures are acceptable, will change Vent mode to conventional mode while monitoring airway pressures Continue to monitor airway pressure to keep Pplat <30, monitor driving pressure Supportive transfusions as clinically indicated, keep HgB >7g/dL - vasopressors if needed to keep > 65 mmHg - titrate supplemental oxygen SpO2 keep 89-92% - continue Daily SAT and SBT assessment as tolerated - VAP bundle addressed, aspiration HOB>30 - continue lung protective strategies - continue bronchodilators with pulmonary hygiene per RT - wean per pulmonary driven protocols otherwise - continue accuchecks with glycemic control per SSI (While critically ill target blood glucose of 140-180 mg/dL; avoid hypoglycemia) - sedation prn for target RASS 0 to -1 - avoid nephrotoxins, renally dose all medications - continue to avoid benzodiazepines , reduce the possibility of delirium - Antibiotics per ID recommendations - prn analgesia per CPOT score >3 - Maintenance of sleep-wake cycle, avoid delirium - continue enteral nutritional support - bolus intermittent feeding while awaiting tube feeding pump - Stress ulcer and VTE prophylaxis - PT/OT/ROM exercise - continue mobility, off loading, and frequent turning per facility protocol to prevent pressure ulcers - Monitor hemodynamics closely - continue other care per attending / other consultants COVID SPECIFIC INTERVENTIONS - COVID-19 PCR negative CONDITION: CRITICAL PROGNOSIS: GUARDED CODE STATUS: FULL CODE The high probability of a clinically significant, sudden or life-threatening deterioration of the [respiratory, cardiovascular, renal & neurologic] system(s) required my full and direct attention, intervention and personal management. The aggregate critical care time was [35] minutes without overlap. Time includes spent on; [x] Data Review and interpretation [x] Patient assessment and monitoring of vital signs [x] Documentation [x] Medication orders and management Subjective Date of service: 12/05/21 Interval history: This is a 86-year-old AA female with known past medical history of hypertension, diabetes mellitus, PVD, and right AKA initially admitted to the floor for sepsis, ARF, and pneumonia versus pulmonary edema. Patient was a code met on 12/02 due to acute hypoxemic respiratory failure requiring intubation and ventilatory support. Follow up: For acute hypoxemic resp failure on MVS; RAYNE ; Acute on chronic metabolic encephalopathy; RAYNE Seen and examined. Vitals,labs, medications, chart and imaging reviewed. Remains unresponsive with episodes of agitation- on Propofol at 10mcg Palacio in place, remains anuric Remains on PCV Pi 22/+8/60%- Discussed with respiratory and nursing care team Discussed with Renal - will proceed with HD, temporary HD catheter will be placed to initiate HD Objective - Exam Narrative Exam: General appearance: Present: no acute distress, other (Intubated and Sedated) - EENT Eyes: Present: PERRL Left mastectomy scar RIJ CVL NGT in nares - Respiratory Respiratory effort: normal Respiratory: bilateral: diminished - Cardiovascular Rhythm: regular Heart Sounds: Present: S1 & S2 - Extremities Extremities: no ischemia, pulses intact, pulses symmetrical s/p right AKA Extremity abnormal: edema - Peripheral Assessment Generalized Edema Type: Non-pitting Edema Degree: 1+ Capillary Refill: < 3 seconds Skin Temperature: Warm Peripheral Pulses: within normal limits - Abdominal General gastrointestinal: soft, non-distended, normal bowel sounds Palacio in place - Integumentary Integumentary: Present: warm, dry - Psychiatric Psychiatric: other (Intubated and Sedated) - Neurologic Neurologic: other (Intubated and Sedated) Vital Signs - 12hr 12/05/21 12/05/21 12/05/21 03:22 03:26 03:30 Temperature 99.3 F Pulse Rate 119 H 116 H Pulse Rate [ 119 H From Monitor] Respiratory 16 Rate Blood Pressure 96/37 O2 Sat by Pulse 93 92 Oximetry 12/05/21 12/05/21 12/05/21 03:57 04:00 04:30 Temperature Pulse Rate 119 H 124 H 120 H Pulse Rate [ From Monitor] Respiratory 12 Rate Blood Pressure 104/47 99/51 O2 Sat by Pulse 95 91 92 Oximetry 12/05/21 12/05/21 12/05/21 05:00 05:30 06:00 Temperature Pulse Rate 113 H 116 H 113 H Pulse Rate [ From Monitor] Respiratory Rate Blood Pressure 99/51 103/55 100/47 O2 Sat by Pulse 93 91 92 Oximetry 12/05/21 12/05/21 12/05/21 06:30 07:00 07:30 Temperature Pulse Rate 115 H 116 H 120 H Pulse Rate [ From Monitor] Respiratory Rate Blood Pressure 109/55 110/58 107/57 O2 Sat by Pulse 93 93 93 Oximetry 12/05/21 12/05/21 12/05/21 07:32 07:34 08:00 Temperature 99.8 F H Pulse Rate 112 H 116 H Pulse Rate [ 119 H From Monitor] Respiratory 22 Rate Blood Pressure 107/57 116/62 O2 Sat by Pulse 92 91 Oximetry 12/05/21 12/05/21 12/05/21 08:30 09:00 09:30 Temperature Pulse Rate 115 H 121 H 117 H Pulse Rate [ From Monitor] Respiratory Rate Blood Pressure 116/60 120/61 124/60 O2 Sat by Pulse 90 90 90 Oximetry 12/05/21 12/05/21 12/05/21 09:56 09:57 10:00 Temperature Pulse Rate 116 H 118 H 121 H Pulse Rate [ From Monitor] Respiratory Rate Blood Pressure 124/60 124/60 121/62 O2 Sat by Pulse 90 Oximetry 12/05/21 12/05/21 12/05/21 10:30 11:00 11:26 Temperature 98.1 F Pulse Rate 111 H 110 H Pulse Rate [ From Monitor] Respiratory Rate Blood Pressure 115/57 110/54 O2 Sat by Pulse 92 92 Oximetry 12/05/21 12/05/21 12/05/21 11:30 11:38 12:00 Temperature Pulse Rate 111 H 109 H 108 H Pulse Rate [ 116 H From Monitor] Respiratory 22 Rate Blood Pressure 109/56 109/56 113/52 O2 Sat by Pulse 92 92 93 Oximetry 12/05/21 12/05/21 12/05/21 12:30 13:00 14:25 Temperature Pulse Rate 104 H 111 H 109 H Pulse Rate [ From Monitor] Respiratory Rate Blood Pressure 106/51 111/57 102/51 O2 Sat by Pulse 92 89 Oximetry CBC and BMP: 12/06/21 04:35 12/06/21 04:35 ABG, PT/INR, D-dimer: ABG ABG pH 7.518 pH Units (7.350-7.450) H 12/05/21 10:15 ABG pCO2 36.3 mm Hg 12/05/21 10:15 ABG pO2 43.4 mm Hg (80.0-90.0) L 12/05/21 10:15 ABG O2 Saturation 78.6 % (95.0-99.0) L 12/05/21 10:15 PT/INR, D-dimer PT 15.9 Sec. (12.2-14.9) H 12/02/21 01:24 INR 1.15 (0.87-1.13) H 12/02/21 01:24 D-Dimer 1461.68 ng/mlDDU (0-234) H 12/02/21 04:18 Abnormal lab findings: Abnormal Labs 12/02/21 12/02/21 12/02/21 00:52 00:52 01:24 WBC 15.4 H RBC Hgb Hct MCHC RDW 15.8 H Lymph % (Auto) 6.3 L Callahan % (Auto) 11.7 H Lymph # (Auto) 1.0 L Callahan # (Auto) 1.8 H Seg Neutrophils % 81.8 H Lymphocytes % (Manual) Seg Neutrophils # 12.6 H Lymphocytes # (Manual) PT INR D-Dimer ABG pH ABG pO2 ABG HCO3 ABG O2 Saturation ABG Base Excess ABG Hemoglobin VBG pH Oxyhemoglobin Sodium Potassium Chloride Carbon Dioxide BUN Creatinine Glucose POC Glucose Lactic Acid Calcium Phosphorus AST ALT Lactate Dehydrogenase Total Creatine Kinase CK-MB (CK-2) CK-MB (CK-2) Rel Index Troponin T C-Reactive Protein NT-Pro-B Natriuret Pep Triglycerides HDL Cholesterol Urine WBC (Auto) 27.0 H Urine Creatinine 24.4 H Urine Total Protein 111 H 12/02/21 12/02/21 12/02/21 01:24 01:24 01:24 WBC RBC Hgb Hct MCHC RDW Lymph % (Auto) Callahan % (Auto) Lymph # (Auto) Callahan # (Auto) Seg Neutrophils % Lymphocytes % (Manual) Seg Neutrophils # Lymphocytes # (Manual) PT 15.9 H INR 1.15 H D-Dimer ABG pH ABG pO2 ABG HCO3 ABG O2 Saturation ABG Base Excess ABG Hemoglobin VBG pH Oxyhemoglobin Sodium Potassium 3.5 L Chloride Carbon Dioxide 4 L* BUN 43 H Creatinine 5.1 H Glucose 239 H POC Glucose Lactic Acid 15.70 H* Calcium Phosphorus AST 86 H ALT 69 H Lactate Dehydrogenase Total Creatine Kinase 254 H CK-MB (CK-2) 20.2 H CK-MB (CK-2) Rel Index 7.9 H Troponin T C-Reactive Protein NT-Pro-B Natriuret Pep Triglycerides HDL Cholesterol Urine WBC (Auto) Urine Creatinine Urine Total Protein 12/02/21 12/02/21 12/02/21 01:24 01:24 04:18 WBC RBC Hgb Hct MCHC RDW Lymph % (Auto) Callahan % (Auto) Lymph # (Auto) Callahan # (Auto) Seg Neutrophils % Lymphocytes % (Manual) Seg Neutrophils # Lymphocytes # (Manual) PT INR D-Dimer 1461.68 H ABG pH ABG pO2 ABG HCO3 ABG O2 Saturation ABG Base Excess ABG Hemoglobin VBG pH 7.167 L* Oxyhemoglobin Sodium Potassium Chloride Carbon Dioxide BUN Creatinine Glucose POC Glucose Lactic Acid Calcium Phosphorus AST ALT Lactate Dehydrogenase Total Creatine Kinase CK-MB (CK-2) CK-MB (CK-2) Rel Index Troponin T 2.600 H* C-Reactive Protein NT-Pro-B Natriuret Pep > 3500 H Triglycerides HDL Cholesterol 74 H Urine WBC (Auto) Urine Creatinine Urine Total Protein 12/02/21 12/02/21 12/02/21 04:18 04:18 10:47 WBC RBC Hgb Hct MCHC RDW Lymph % (Auto) Callahan % (Auto) Lymph # (Auto) Callahan # (Auto) Seg Neutrophils % Lymphocytes % (Manual) Seg Neutrophils # Lymphocytes # (Manual) PT INR D-Dimer ABG pH ABG pO2 ABG HCO3 ABG O2 Saturation ABG Base Excess ABG Hemoglobin VBG pH Oxyhemoglobin Sodium Potassium Chloride Carbon Dioxide 7 L* BUN 51 H Creatinine 5.9 H Glucose 255 H 224 H POC Glucose Lactic Acid 15.40 H* Calcium Phosphorus AST ALT Lactate Dehydrogenase 958 H Total Creatine Kinase CK-MB (CK-2) CK-MB (CK-2) Rel Index Troponin T C-Reactive Protein 6.60 H NT-Pro-B Natriuret Pep Triglycerides HDL Cholesterol Urine WBC (Auto) Urine Creatinine Urine Total Protein 12/02/21 12/02/21 12/02/21 10:53 13:51 13:51 WBC RBC Hgb Hct MCHC RDW Lymph % (Auto) Callahan % (Auto) Lymph # (Auto) Callahan # (Auto) Seg Neutrophils % Lymphocytes % (Manual) Seg Neutrophils # Lymphocytes # (Manual) PT INR D-Dimer ABG pH ABG pO2 ABG HCO3 ABG O2 Saturation ABG Base Excess ABG Hemoglobin VBG pH Oxyhemoglobin Sodium Potassium Chloride Carbon Dioxide BUN Creatinine Glucose POC Glucose 194 H Lactic Acid 11.70 H* Calcium Phosphorus AST ALT Lactate Dehydrogenase Total Creatine Kinase CK-MB (CK-2) CK-MB (CK-2) Rel Index Troponin T 2.500 H* C-Reactive Protein NT-Pro-B Natriuret Pep Triglycerides HDL Cholesterol Urine WBC (Auto) Urine Creatinine Urine Total Protein 12/02/21 12/02/21 12/02/21 20:31 22:56 22:56 WBC RBC Hgb Hct MCHC RDW Lymph % (Auto) Callahan % (Auto) Lymph # (Auto) Callahan # (Auto) Seg Neutrophils % Lymphocytes % (Manual) Seg Neutrophils # Lymphocytes # (Manual) PT INR D-Dimer ABG pH ABG pO2 156.2 H ABG HCO3 15.4 L ABG O2 Saturation ABG Base Excess -8.7 L ABG Hemoglobin VBG pH Oxyhemoglobin Sodium 147 H Potassium 3.4 L Chloride Carbon Dioxide 18 L D BUN 59 H Creatinine 6.2 H Glucose 150 H POC Glucose Lactic Acid 6.10 H* Calcium 8.3 L Phosphorus AST ALT Lactate Dehydrogenase Total Creatine Kinase CK-MB (CK-2) CK-MB (CK-2) Rel Index Troponin T C-Reactive Protein NT-Pro-B Natriuret Pep Triglycerides HDL Cholesterol Urine WBC (Auto) Urine Creatinine Urine Total Protein 12/03/21 12/03/21 12/03/21 00:25 00:42 04:00 WBC RBC Hgb Hct MCHC RDW 15.4 H Lymph % (Auto) Callahan % (Auto) Lymph # (Auto) Callahan # (Auto) Seg Neutrophils % Lymphocytes % (Manual) 7.0 L Seg Neutrophils # Lymphocytes # (Manual) 0.4 L PT INR D-Dimer ABG pH ABG pO2 ABG HCO3 ABG O2 Saturation ABG Base Excess ABG Hemoglobin VBG pH Oxyhemoglobin Sodium Potassium Chloride Carbon Dioxide BUN Creatinine Glucose POC Glucose 150 H Lactic Acid 5.80 H* Calcium Phosphorus AST ALT Lactate Dehydrogenase Total Creatine Kinase CK-MB (CK-2) CK-MB (CK-2) Rel Index Troponin T C-Reactive Protein NT-Pro-B Natriuret Pep Triglycerides HDL Cholesterol Urine WBC (Auto) Urine Creatinine Urine Total Protein 12/03/21 12/03/21 12/03/21 04:00 06:14 08:35 WBC RBC Hgb Hct MCHC RDW Lymph % (Auto) Callahan % (Auto) Lymph # (Auto) Callahan # (Auto) Seg Neutrophils % Lymphocytes % (Manual) Seg Neutrophils # Lymphocytes # (Manual) PT INR D-Dimer ABG pH 7.533 H ABG pO2 120.9 H ABG HCO3 ABG O2 Saturation ABG Base Excess ABG Hemoglobin 11.9 L VBG pH Oxyhemoglobin Sodium Potassium 3.5 L Chloride Carbon Dioxide 21 L BUN 63 H Creatinine 6.3 H Glucose 158 H POC Glucose 145 H Lactic Acid Calcium 7.9 L Phosphorus AST ALT Lactate Dehydrogenase Total Creatine Kinase CK-MB (CK-2) CK-MB (CK-2) Rel Index Troponin T C-Reactive Protein NT-Pro-B Natriuret Pep Triglycerides HDL Cholesterol Urine WBC (Auto) Urine Creatinine Urine Total Protein 12/03/21 12/03/21 12/03/21 12:35 13:48 15:51 WBC RBC Hgb Hct MCHC RDW Lymph % (Auto) Callahan % (Auto) Lymph # (Auto) Callahan # (Auto) Seg Neutrophils % Lymphocytes % (Manual) Seg Neutrophils # Lymphocytes # (Manual) PT INR D-Dimer ABG pH ABG pO2 ABG HCO3 ABG O2 Saturation ABG Base Excess ABG Hemoglobin VBG pH Oxyhemoglobin Sodium Potassium Chloride Carbon Dioxide BUN Creatinine Glucose POC Glucose 151 H 168 H Lactic Acid Calcium Phosphorus AST ALT Lactate Dehydrogenase Total Creatine Kinase CK-MB (CK-2) CK-MB (CK-2) Rel Index Troponin T C-Reactive Protein NT-Pro-B Natriuret Pep Triglycerides HDL Cholesterol Urine WBC (Auto) 9.0 H Urine Creatinine Urine Total Protein 12/03/21 12/03/21 12/03/21 16:20 16:35 23:21 WBC RBC Hgb Hct MCHC RDW Lymph % (Auto) Callahan % (Auto) Lymph # (Auto) Callahan # (Auto) Seg Neutrophils % Lymphocytes % (Manual) Seg Neutrophils # Lymphocytes # (Manual) PT INR D-Dimer ABG pH ABG pO2 ABG HCO3 ABG O2 Saturation ABG Base Excess ABG Hemoglobin VBG pH Oxyhemoglobin Sodium Potassium Chloride 92.3 L Carbon Dioxide BUN 67 H Creatinine 7.1 H Glucose 160 H POC Glucose 158 H 161 H Lactic Acid Calcium 7.3 L Phosphorus AST ALT Lactate Dehydrogenase Total Creatine Kinase CK-MB (CK-2) CK-MB (CK-2) Rel Index Troponin T C-Reactive Protein NT-Pro-B Natriuret Pep Triglycerides HDL Cholesterol Urine WBC (Auto) Urine Creatinine Urine Total Protein 12/04/21 12/04/21 12/04/21 04:18 04:18 04:18 WBC RBC 3.29 L Hgb 10.0 L Hct 28.4 L D MCHC 35 H RDW 15.4 H Lymph % (Auto) Callahan % (Auto) Lymph # (Auto) [place]ahan # (Auto) Seg Neutrophils % Lymphocytes % (Manual) Seg Neutrophils # Lymphocytes # (Manual) PT INR D-Dimer ABG pH ABG pO2 ABG HCO3 ABG O2 Saturation ABG Base Excess ABG Hemoglobin VBG pH Oxyhemoglobin Sodium Potassium 3.5 L Chloride 91.5 L Carbon Dioxide 33 H D BUN 74 H Creatinine 7.5 H Glucose 155 H POC Glucose Lactic Acid 4.60 H* Calcium 7.2 L Phosphorus 4.60 H AST ALT Lactate Dehydrogenase Total Creatine Kinase CK-MB (CK-2) CK-MB (CK-2) Rel Index Troponin T C-Reactive Protein NT-Pro-B Natriuret Pep Triglycerides HDL Cholesterol Urine WBC (Auto) Urine Creatinine Urine Total Protein 12/04/21 12/04/21 12/04/21 10:29 11:08 15:46 WBC RBC Hgb Hct MCHC RDW Lymph % (Auto) Callahan % (Auto) Lymph # (Auto) [place]ahan # (Auto) Seg Neutrophils % Lymphocytes % (Manual) Seg Neutrophils # Lymphocytes # (Manual) PT INR D-Dimer ABG pH 7.504 H ABG pO2 40.8 L ABG HCO3 30.1 H ABG O2 Saturation 75.1 L ABG Base Excess 6.6 H ABG Hemoglobin 10.2 L VBG pH Oxyhemoglobin 73.7 L Sodium Potassium Chloride Carbon Dioxide BUN Creatinine Glucose POC Glucose 146 H 155 H Lactic Acid Calcium Phosphorus AST ALT Lactate Dehydrogenase Total Creatine Kinase CK-MB (CK-2) CK-MB (CK-2) Rel Index Troponin T C-Reactive Protein NT-Pro-B Natriuret Pep Triglycerides HDL Cholesterol Urine WBC (Auto) Urine Creatinine Urine Total Protein 12/04/21 12/05/21 12/05/21 23:30 04:22 04:22 WBC 12.7 H RBC 3.33 L Hgb 9.6 L Hct 29.3 L MCHC RDW 15.5 H Lymph % (Auto) [place]ahan % (Auto) Lymph # (Auto) [place]ahan # (Auto) Seg Neutrophils % Lymphocytes % (Manual) Seg Neutrophils # Lymphocytes # (Manual) PT INR D-Dimer ABG pH ABG pO2 ABG HCO3 ABG O2 Saturation ABG Base Excess ABG Hemoglobin VBG pH Oxyhemoglobin Sodium Potassium Chloride 90.3 L Carbon Dioxide BUN 89 H Creatinine 8.8 H Glucose 216 H POC Glucose 183 H Lactic Acid Calcium 8.0 L Phosphorus 4.60 H AST ALT Lactate Dehydrogenase Total Creatine Kinase CK-MB (CK-2) CK-MB (CK-2) Rel Index Troponin T C-Reactive Protein NT-Pro-B Natriuret Pep Triglycerides 280 H HDL Cholesterol Urine WBC (Auto) Urine Creatinine Urine Total Protein 12/05/21 12/05/21 12/05/21 10:15 10:54 11:57 WBC RBC Hgb Hct MCHC RDW Lymph % (Auto) Callahan % (Auto) Lymph # (Auto) [place]ahan # (Auto) Seg Neutrophils % Lymphocytes % (Manual) Seg Neutrophils # Lymphocytes # (Manual) PT INR D-Dimer ABG pH 7.518 H ABG pO2 43.4 L ABG HCO3 28.8 H ABG O2 Saturation 78.6 L ABG Base Excess 5.6 H ABG Hemoglobin 8.4 L VBG pH Oxyhemoglobin 77.1 L Sodium Potassium Chloride Carbon Dioxide BUN Creatinine Glucose POC Glucose 187 H 196 H Lactic Acid Calcium Phosphorus AST ALT Lactate Dehydrogenase Total Creatine Kinase CK-MB (CK-2) CK-MB (CK-2) Rel Index Troponin T C-Reactive Protein NT-Pro-B Natriuret Pep Triglycerides HDL Cholesterol Urine WBC (Auto) Urine Creatinine Urine Total Protein Allied health notes reviewed: RT
[2021-12-05 16:45] LABS: Hepatitis B Surface Antigen Non-Reactive (Negative); Hepatitis C Virus Antibody Non-Reactive (NonReactive)
[2021-12-05] MEDS: CEFEPIME/NS 1 GM/100 ML 1 GM/100 ML BAG IV SCH (18:22)
[2021-12-05] MEDS: PRAVASTATIN 80 MG TAB PO SCH (21:10)
[2021-12-06] MEDS: INSULIN LISPRO 100 UNIT/ML SUB-Q SCH ×5 (00:01→23:37)
--- NOTE | 2021-12-06 03:21 | XRay Report ---
XR chest 1V ap INDICATION / CLINICAL INFORMATION: follow up respiratory failure. COMPARISON: Radiograph from yesterday. FINDINGS: SUPPORT DEVICES: Unchanged. HEART /PULMONARY VASCULATURE: Unchanged. LUNGS / PLEURA: Lung parenchyma is not significantly changed. No pneumothorax. IMPRESSION: 1. No significant interval change. Signer Name: Torito Lam MD Signed: 12/06/2021 3:17 AM Workstation Name: [id number]
[2021-12-06 05:10] LABS: Hematocrit 26.1 % (30.3-42.9); Hemoglobin 8.9 gm/dl (10.1-14.3); Mean Corpuscular HGB Conc 34 % (30-34); Mean Corpuscular Volume 87 fl (79-97); Platelet Count 199 K/mm3 (140-440); Red Blood Count 2.99 M/mm3 (3.65-5.03); Red Cell Distribution Width 15.2 % (13.2-15.2)
[2021-12-06 05:27] LABS: Calcium 9.3 mg/dL (8.4-10.2)
[2021-12-06] MEDS: NITROGLYCERIN 2% OINT 1 GM TP SCH ×2 (05:39→11:38)
[2021-12-06 06:18] LABS: ABG Base Excess 4.9 mmol/L (-2.0-3.0); ABG HCO3 27.3 mmol/L (20.0-26.0); ABG Methemoglobin 0.4 % (0.0-1.5); ABG Oxygen Saturation 97.8 % (95.0-99.0); ABG PCO2 31.5 mm Hg; ABG PH 7.555 pH Units (7.350-7.450); ABG PO2 95.3 mm Hg (80.0-90.0)
[2021-12-06] MEDS ORDERED: METOPROLOL TARTRATE 5 MG/5 ML INJ IV PRN (11:11)
[2021-12-06] MEDS: METOPROLOL TARTRATE 25 MG TAB PO SCH (11:23)
[2021-12-06] MEDS: SENNOSIDES/DOCUSATE SODIUM 8.6/50 MG TAB FEEDTUBE SCH ×2 (11:23→21:38)
[2021-12-06] MEDS: ASPIRIN 81 MG TAB CHEW PO SCH (11:23)
[2021-12-06] MEDS: CLOPIDOGREL 75 MG TAB PO SCH (11:23)
[2021-12-06] MEDS: FAMOTIDINE 10 MG TAB PO SCH ×2 (11:23→21:38)
[2021-12-06] MEDS: CILOSTAZOL 100 MG TAB PO SCH ×2 (11:24→23:12)
[2021-12-06] MEDS: amLODIPine 10 MG TAB PO SCH (11:39)
[2021-12-06] MEDS: HEPARIN 5,000 UNIT/1 ML VIAL SUB-Q SCH ×3 (11:40→21:37)
--- NOTE | 2021-12-06 11:54 | Progress Note ---
<KELLEY LIZ - Last Filed: 12/06/21 16:36> Assessment and Plan Assessment and plan: This is a 86-year-old AA female with known past medical history of hypertension, diabetes mellitus, PVD, and right AKA initially admitted to the floor for sepsis, ARF, and pneumonia versus pulmonary edema. Patient was a code met on 11/18 5 due to acute hypoxemic respiratory failure requiring intubation and ventilatory support. Hospital Course to Date: 12/03: Patient remains intubated and sedated. This am ABG noted, continue to wean Fio2 as tolerated. Patient's renal function continue to worsen, patient cur rently on bcab gtt per Nephrology. Per Nephro plan for possible discussion with family, patient might require HD. Acidosis is improving continue bcarb and IV abx per ID, trend lactic acid. 12/04: Overnight events noted, remains ST in the 110s this am, BP stable. Renal function continue to worsen, per nursing staff patient's POA is leaning towards HD. Plan for possible family meeting to further discuss patient's goal of care. This am ABG noted, most likely venous, SPO2 is 100%, tolerating vent. Continue to wean Fio2 as tolerated. 12/05: Family meeting with grandson today at the bedside. Thorough discussion with the attending in regards to patient's current status/condition and overall prognosis. Patient's grandson voiced understanding of the info given, stated that he knows his grandma is older but he would like to give her a fighting chance and want everything done including hemodialysis. Code status was also addressed, patient's POA stated that he would like full resuscitative measures at this time. Patient remains a FULL code. RIJ Vascath inserted, plan for possible HD today per Nephro. 12/06: Patient tolerated first HD treatment yesterday, renal function with some improvement this am. Plan for possible HD again today. Increased agitation overnight, sedation increased, will added low dose Seroquel Qhs. Basal insulin added for hyperglycemia. Continue to wean Fio2 as tolerated per CCM. Assessment and Plan #Acute Hypoxemic Respiratory Failure #Pulmonary Edema Vs #Pneumonia - Code met on 12/02 was intubated - Vent setting:A/C-65%,8,14,400 - This am ABG noted - CCM consulted, appreciate recommendations - Continue IV ABx and Nebs per CCM - VAP bundle addressed - Aspiration precaution HOB above 30 - Daily SBT and SAT trials as tolerated - Daily ABG and CXR - Continue SPO2 monitoring for SPO2 goal above 92% #Severe Sepsis #Pneumonia #Leukocytosis-improved #Lactic Acidosis/Metabolic acidosis - Imaging with bilateral pulmonary opacities - Presented with severe acidosis and leukocytosis - Patient remains aferbile - COVID PCR negative - Blood culture and sputum culture with NGTD - ID is on consult - Continue current IV Abx per ID - Continue to F/U on B.cult - Daily CBC monitor #Acute Kidney Injury(RAYNE) most likely ATN #Hypokalemia - No history of CKD per family - Nephrology on consult, appreciated recommendation - 12/05 VasCath inserted, patient tolerated first HD - Possible HD again today - Strict intake and output - Palacio in place with oliguria - Avoid nephrotoxic medications; Renally dose medications - Monitor and replace electrolytes as needed - Trend BMP #Acute Metabolic Acidosis - Probably due to severe acidosis - Continue sedation for RASS goal of 0 to -2 - Seroquel added Qhs - Avoid benzodiazepine to reduce the possibility of delirium - Prn analgesia for CPOT greater than 3 - Maintenance of sleep-wake cycle #Hypertension #Elevated BNP #Elevated troponin - BNP >2000 ; troponin 2.000 - could also be secondary to renal failure - 12/02 2D Echo EF 30-35% - Cardiology on consult, appreciated recommendations - No diuretic due to kidney function - Home meds resumed - Continue blood pressure monitor per protocol #Elevated D-dimer - COVID PCR negatine - BLE doppler negative - Continue SubQ heparin #Type 2 Diabetes mellitus - Continue SSI Q6hrs - Avoid Hypoglycemia - While critically ill target blood glucose of 140-180 #GI/DVT Prophylaxis - PPI- Pepcid - Continue AC- Heparin SubQ The high probability of a clinically significant, sudden or life threatening deterioration of the [multiple] system(s) required my full and direct attention, intervention and personal management. The aggregate critical care time was [60] minutes. This time is in addition to time spent performing reported procedures but includes the following: [x] Data Review and interpretation [x] Patient assessment and monitoring of vital signs [x] Documentation [x] Medication orders and management Disposition Plan: ICU Total Time Spent with Patient (Minutes): 60 History Interval history: Patient seen and examined at the bedside. Intubated and sedated on propofol. Intermittent agitation overnight, propofol gtt was increased. Otherwise, ZANE overnight Hospitalist Physical - Constitutional Vitals: Temp Pulse Resp BP Pulse Ox 99.2 F 118 H 18 123/57 96 12/06/21 08:00 12/06/21 11:23 12/06/21 04:00 12/06/21 11:23 12/06/21 07:54 General appearance: Present: no acute distress, other (Intubated and Sedated) - EENT Eyes: Present: PERRL - Respiratory Respiratory effort: normal Respiratory: bilateral: rhonchi - Cardiovascular Rhythm: regular Heart Sounds: Present: S1 & S2 - Extremities Extremities: no ischemia, pulses intact, pulses symmetrical, abnormal (Rt. AKA) Extremity abnormal: edema - Peripheral Assessment Generalized Edema Type: Non-pitting Edema Degree: 2+ Capillary Refill: < 3 seconds Skin Temperature: Warm Peripheral Pulses: within normal limits - Abdominal General gastrointestinal: soft, non-distended, normal bowel sounds - Integumentary Integumentary: Present: warm, dry - Psychiatric Psychiatric: other (Intubated and Sedated) - Neurologic Neurologic: other (Intubated and Sedated) - Allied Health Allied health notes reviewed: nursing HEART Score - HEART Score Troponin: Troponin T 2.500 ng/mL (0.00-0.029) H* 12/02/21 13:51 Results - Labs CBC & Chem 7: 12/06/21 04:35 12/06/21 04:35 Labs: Laboratory Last Values WBC 11.8 K/mm3 (4.5-11.0) H 12/06/21 04:35 RBC 2.99 M/mm3 (3.65-5.03) L 12/06/21 04:35 Hgb 8.9 gm/dl (10.1-14.3) L 12/06/21 04:35 Hct 26.1 % (30.3-42.9) L 12/06/21 04:35 MCV 87 fl (79-97) 12/06/21 04:35 MCH 30 pg (28-32) 12/06/21 04:35 MCHC 34 % (30-34) 12/06/21 04:35 RDW 15.2 % (13.2-15.2) 12/06/21 04:35 Plt Count 199 K/mm3 (140-440) 12/06/21 04:35 Lymph % (Auto) 6.3 % (13.4-35.0) L 12/02/21 01:24 [place] % (Auto) 11.7 % (0.0-7.3) H 12/02/21 01:24 Eos % (Auto) 0.0 % (0.0-4.3) 12/02/21 01:24 Baso % (Auto) 0.2 % (0.0-1.8) 12/02/21 01:24 Lymph # (Auto) 1.0 K/mm3 (1.2-5.4) L 12/02/21 01:24 [place] # (Auto) 1.8 K/mm3 (0.0-0.8) H 12/02/21 01:24 Eos # (Auto) 0.0 K/mm3 (0.0-0.4) 12/02/21 01:24 Baso # (Auto) 0.0 K/mm3 (0.0-0.1) 12/02/21 01:24 Add Manual Diff Complete 12/03/21 04:00 Total Counted 100 12/03/21 04:00 Seg Neutrophils % 81.8 % (40.0-70.0) H 12/02/21 01:24 Seg Neuts % (Manual) 67.0 % (40.0-70.0) 12/03/21 04:00 Band Neutrophils % 18.0 % 12/03/21 04:00 Lymphocytes % (Manual) 7.0 % (13.4-35.0) L 12/03/21 04:00 Reactive Lymphs % (Man) 0 % 12/03/21 04:00 Monocytes % (Manual) 3.0 % (0.0-7.3) 12/03/21 04:00 Eosinophils % (Manual) 0 % (0.0-4.3) 12/03/21 04:00 Basophils % (Manual) 0 % (0.0-1.8) 12/03/21 04:00 Metamyelocytes % 4.0 % 12/03/21 04:00 Myelocytes % 1.0 % 12/03/21 04:00 Promyelocytes % 0 % 12/03/21 04:00 Blast Cells % 0 % 12/03/21 04:00 Nucleated RBC % Not Reportable 12/03/21 04:00 Seg Neutrophils # 12.6 K/mm3 (1.8-7.7) H 12/02/21 01:24 Seg Neutrophils # Man 4.1 K/mm3 (1.8-7.7) 12/03/21 04:00 Band Neutrophils # 1.1 K/mm3 12/03/21 04:00 Lymphocytes # (Manual) 0.4 K/mm3 (1.2-5.4) L 12/03/21 04:00 Abs React Lymphs (Man) 0.0 K/mm3 12/03/21 04:00 Monocytes # (Manual) 0.2 K/mm3 (0.0-0.8) 12/03/21 04:00 Eosinophils # (Manual) 0.0 K/mm3 (0.0-0.4) 12/03/21 04:00 Basophils # (Manual) 0.0 K/mm3 (0.0-0.1) 12/03/21 04:00 Metamyelocytes # 0.2 K/mm3 12/03/21 04:00 Myelocytes # 0.1 K/mm3 12/03/21 04:00 Promyelocytes # 0.0 K/mm3 12/03/21 04:00 Blast Cells # 0.0 K/mm3 12/03/21 04:00 WBC Morphology Not Reportable 12/03/21 04:00 Hypersegmented Neuts Not Reportable 12/03/21 04:00 Hyposegmented Neuts Not Reportable 12/03/21 04:00 Hypogranular Neuts Not Reportable 12/03/21 04:00 Smudge Cells Not Reportable 12/03/21 04:00 Toxic Granulation Not Reportable 12/03/21 04:00 Toxic Vacuolation Not Reportable 12/03/21 04:00 Dohle Bodies Not Reportable 12/03/21 04:00 Pelger-Huet Anomaly Not Reportable 12/03/21 04:00 Randee Rods Not Reportable 12/03/21 04:00 Platelet Estimate Consistent w auto 12/03/21 04:00 Clumped Platelets Few 12/03/21 04:00 Plt Clumps, EDTA Not Reportable 12/03/21 04:00 Large Platelets Few 12/03/21 04:00 Giant Platelets Not Reportable 12/03/21 04:00 Platelet Satelliting Not Reportable 12/03/21 04:00 Plt Morphology Comment Not Reportable 12/03/21 04:00 RBC Morphology Not Reportable 12/03/21 04:00 Dimorphic RBCs Not Reportable 12/03/21 04:00 Polychromasia Not Reportable 12/03/21 04:00 Hypochromasia Not Reportable 12/03/21 04:00 Poikilocytosis Not Reportable 12/03/21 04:00 Anisocytosis Not Reportable 12/03/21 04:00 Microcytosis Not Reportable 12/03/21 04:00 Macrocytosis Not Reportable 12/03/21 04:00 Spherocytes Not Reportable 12/03/21 04:00 Pappenheimer Bodies Not Reportable 12/03/21 04:00 Sickle Cells Not Reportable 12/03/21 04:00 Target Cells Not Reportable 12/03/21 04:00 Tear Drop Cells Not Reportable 12/03/21 04:00 Ovalocytes Not Reportable 12/03/21 04:00 Helmet Cells Not Reportable 12/03/21 04:00 [place] Bodies Not Reportable 12/03/21 04:00 Mobile Rings Not Reportable 12/03/21 04:00 Ania Cells 1+ 12/03/21 04:00 Bite Cells Not Reportable 12/03/21 04:00 Crenated Cell Not Reportable 12/03/21 04:00 Elliptocytes Not Reportable 12/03/21 04:00 Acanthocytes (Spur) Rare 12/03/21 04:00 Rouleaux Not Reportable 12/03/21 04:00 Hemoglobin C Crystals Not Reportable 12/03/21 04:00 Schistocytes Not Reportable 12/03/21 04:00 Malaria parasites Not Reportable 12/03/21 04:00 Josemanuel Bodies Not Reportable 12/03/21 04:00 Hem Pathologist Commnt No 12/03/21 04:00 PT 15.9 Sec. (12.2-14.9) H 12/02/21 01:24 INR 1.15 (0.87-1.13) H 12/02/21 01:24 APTT 31.5 Sec. (24.2-36.6) 12/02/21 01:24 D-Dimer 1461.68 ng/mlDDU (0-234) H 12/02/21 04:18 ABG pH 7.555 pH Units (7.350-7.450) H 12/06/21 06:05 ABG pCO2 31.5 mm Hg 12/06/21 06:05 ABG pO2 95.3 mm Hg (80.0-90.0) H 12/06/21 06:05 ABG HCO3 27.3 mmol/L (20.0-26.0) H 12/06/21 06:05 ABG O2 Saturation 97.8 % (95.0-99.0) 12/06/21 06:05 ABG O2 Content 12.4 (0.0-44) 12/06/21 06:05 ABG Base Excess 4.9 mmol/L (-2.0-3.0) H 12/06/21 06:05 ABG Hemoglobin 9.0 gm/dl (12.0-16.0) L 12/06/21 06:05 ABG Carboxyhemoglobin 1.3 % (0.0-5.0) 12/06/21 06:05 ABG Methemoglobin 0.4 % (0.0-1.5) 12/06/21 06:05 VBG pH 7.167 (7.320-7.420) L* 12/02/21 01:24 Oxyhemoglobin 96.2 % (95.0-99.0) 12/06/21 06:05 FiO2 75 % 12/06/21 06:05 Sodium 137 mmol/L (137-145) 12/06/21 04:35 Potassium 4.1 mmol/L (3.6-5.0) 12/06/21 04:35 Chloride 95.0 mmol/L (98-107) L 12/06/21 04:35 Carbon Dioxide 27 mmol/L (22-30) 12/06/21 04:35 Anion Gap 19 mmol/L 12/06/21 04:35 BUN 59 mg/dL (7-17) H 12/06/21 04:35 Creatinine 6.3 mg/dL (0.6-1.2) H 12/06/21 04:35 Estimated GFR 6 ml/min 12/06/21 04:35 BUN/Creatinine Ratio 9 % 12/06/21 04:35 Glucose 244 mg/dL (65-100) H 12/06/21 04:35 POC Glucose 249 mg/dL (70-105) H 12/06/21 11:45 Lactic Acid 4.60 mmol/L (0.7-2.0) H* 12/04/21 04:18 Calcium 9.3 mg/dL (8.4-10.2) D 12/06/21 04:35 Phosphorus 4.60 mg/dL (2.5-4.5) H 12/05/21 04:22 Magnesium 2.20 mg/dL (1.7-2.3) 12/05/21 04:22 Ferritin 168.9 ng/mL (10.0-200.0) 12/02/21 04:18 Total Bilirubin 0.40 mg/dL (0.1-1.2) 12/02/21 01:24 AST 86 units/L (5-40) H 12/02/21 01:24 ALT 69 units/L (7-56) H 12/02/21 01:24 Alkaline Phosphatase 91 units/L (35-129) 12/02/21 01:24 Lactate Dehydrogenase 958 units/L (91-180) H 12/02/21 04:18 Total Creatine Kinase 254 units/L (30-135) H 12/02/21 01:24 CK-MB (CK-2) 20.2 ng/mL (0.0-4.0) H 12/02/21 01:24 CK-MB (CK-2) Rel Index 7.9 (0-4) H 12/02/21 01:24 Troponin T 2.500 ng/mL (0.00-0.029) H* 12/02/21 13:51 C-Reactive Protein 6.60 mg/dL (0.00-1.30) H 12/02/21 04:18 NT-Pro-B Natriuret Pep > 3500 pg/mL (0-900) H 12/02/21 01:24 Total Protein 7.7 g/dL (6.3-8.2) 12/02/21 01:24 Albumin 4.0 g/dL (3.9-5) 12/02/21 01:24 Albumin/Globulin Ratio 1.1 % 12/02/21 01:24 Triglycerides 280 mg/dL (2-149) H 12/05/21 04:22 Cholesterol 177 mg/dL (50-199) 12/02/21 01:24 LDL Cholesterol Direct 91 mg/dL (50-130) 12/02/21 01:24 HDL Cholesterol 74 mg/dL (40-59) H 12/02/21 01:24 Cholesterol/HDL Ratio 2.39 % 12/02/21 01:24 Procalcitonin 1.24 ng/mL (<0.15) 12/02/21 04:18 Urine Color Yellow (Yellow) 12/03/21 13:48 Urine Turbidity Hazy (Clear) 12/03/21 13:48 Urine pH 7.0 (5.0-7.0) 12/03/21 13:48 Ur Specific [place] 1.009 (1.003-1.030) 12/03/21 13:48 Urine Protein >500 mg/dL (Negative) 12/03/21 13:48 Urine Glucose (UA) 50 mg/dL (Negative) 12/03/21 13:48 Urine Ketones Neg mg/dL (Negative) 12/03/21 13:48 Urine Blood Mod (Negative) 12/03/21 13:48 Urine Nitrite Neg (Negative) 12/03/21 13:48 Urine Bilirubin Neg (Negative) 12/03/21 13:48 Urine Urobilinogen < 2.0 mg/dL (<2.0) 12/03/21 13:48 Ur Leukocyte Esterase Neg (Negative) 12/03/21 13:48 Urine WBC (Auto) 9.0 /HPF (0.0-6.0) H 12/03/21 13:48 Urine RBC (Auto) 5.0 /HPF (0.0-6.0) 12/03/21 13:48 U Epithel Cells (Auto) 2.0 /HPF (0-13.0) 12/03/21 13:48 Urine Bacteria (Auto) 1+ /HPF (Negative) 12/02/21 00:52 Urine Mucus Few /HPF 12/03/21 13:48 Urine Yeast (Budding) Few /HPF 12/02/21 00:52 Urine Creatinine 24.4 mg/dL (0.1-20.0) H 12/02/21 00:52 Protein/Creatinin Ratio 4.55 12/02/21 00:52 Urine Sodium 109 mmol/L 12/02/21 00:52 Urine Total Protein 111 mg/dL (5-11.8) H 12/02/21 00:52 Random Vancomycin 14.0 ug/mL (0-40.0) 12/05/21 04:22 Coronavirus (PCR) Negative (Negative) 12/02/21 09:00 Hepatitis A IgM Ab Non-reactive (NonReactive) 12/05/21 04:22 Hep Bs Antigen Non-reactive (Negative) 12/05/21 04:22 Hep B Core IgM Ab Non-reactive (NonReactive) 12/05/21 04:22 Hepatitis C Antibody Non-reactive (NonReactive) 12/05/21 04:22 Microbiology: Microbiology 12/02/21 01:46 Peripheral/Venous Blood Culture - Preliminary NO GROWTH AFTER 4 DAYS 12/02/21 01:24 Peripheral/Venous Blood Culture - Preliminary NO GROWTH AFTER 4 DAYS 12/02/21 19:48 Tracheal Aspirate Sputum Culture - Final 12/02/21 00:52 Urine,Clean Catch Urine Culture - Final NO GROWTH AFTER 48 HOURS Palacio/IV: Voiding Method Indwelling Catheter Active Medications - Current Medications Current Medications: Generic Name Dose Route Start Last Admin Trade Name Freq PRN Reason Stop Dose Admin Acetaminophen 650 mg 12/02/21 04:37 Acetaminophen 325 Mg Tab PO Q4H PRN Pain MILD(1-3)/Fever >100.5/HYLTON Alprazolam 0.5 mg 12/02/21 11:30 12/05/21 04:40 Alprazolam 0.5 Mg Tab PO 0.5 mg Q8H PRN Administration Anxiety Amlodipine Besylate 10 mg 12/03/21 10:00 12/06/21 11:39 Amlodipine 10 Mg Tab PO Not Given DAILY KHARI Aspirin 81 mg 12/03/21 10:00 12/06/21 11:23 Aspirin 81 Mg Tab Chew PO 81 mg QDAY KHARI Administration Cilostazol 50 mg 12/02/21 22:00 12/06/21 11:24 Cilostazol 100 Mg Tab PO 50 mg BID KHARI Administration Clopidogrel Bisulfate 75 mg 12/03/21 10:00 12/06/21 11:23 Clopidogrel 75 Mg Tab PO 75 mg QDAY KHARI Administration Dextrose 0 ml 12/02/21 05:10 Dextrose 10% *Hypoglycemia IV PRN PRN Hypoglycemia Protocol Epoetin Lenny-epbx 10,000 unit 12/05/21 10:00 Epoetin Lenny-Epbx 10,000 Unit/1 Ml Vial IV ED PRN hemodialysis Famotidine 10 mg 12/04/21 22:00 12/06/21 11:23 Famotidine 10 Mg Tab PO 10 mg BID KHARI Administration Heparin Sodium (Porcine) 5,000 unit 12/02/21 06:00 12/06/21 11:40 Heparin 5,000 Unit/1 Ml Vial SUB-Q Not Given Q8HR KHARI Hydrophilic Ointment 1 applic 12/02/21 17:32 Lip Therapy Vaseline TP Q2HR PRN Dry Lips Cefepime HCl 1 gm in 100 mls @ 200 mls/hr 12/02/21 18:00 12/05/21 18:22 Cefepime/Ns 1 Gm/100 Ml IV 12/08/21 17:59 200 mls/hr QPM KHARI Administration Protocol Propofol 1,000 mg in 100 mls @ 1.839 mls/hr 12/02/21 18:00 12/05/21 23:27 Diprivan 10 Mg/Ml IV 10 mcg/kg/min TITR KHARI 3.678 mls/hr Titration Protocol 5 MCG/KG/MIN Sodium Chloride 100 mls @ 999 mls/hr 12/06/21 12:00 Nacl 0.9% IV ED PRN Hypotension Insulin Glargine 10 units 12/06/21 22:00 Insulin Glargine 100 Units/Ml SUB-Q QHS [facility] Insulin Human Lispro 0 unit 12/03/21 00:00 12/06/21 05:42 Insulin Lispro 100 Unit/Ml SUB-Q 4 unit Q6HR KHARI Administration Protocol Levalbuterol HCl 0.63 mg 12/02/21 10:00 Levalbuterol 0.63 Mg/3 Ml Nebu IH Q8HRT PRN Shortness Of Breath Lorazepam 1 mg 12/02/21 14:22 12/02/21 15:18 Lorazepam 2 Mg/Ml Vial IV 1 mg Q6H PRN Administration Agitation Magnesium Hydroxide 30 ml 12/02/21 04:37 Magnesium Hydroxide (Mom) Oral Liqd Udc PO Q4H PRN Constipation Metoprolol Tartrate 25 mg 12/02/21 15:00 12/06/21 11:23 Metoprolol Tartrate 25 Mg Tab PO 25 mg QDAY KHARI Administration Metoprolol Tartrate 2.5 mg 12/06/21 11:11 Metoprolol Tartrate 5 Mg/5 Ml Inj IV Q6HR PRN Tachycardia Morphine Sulfate 2 mg 12/02/21 04:37 12/04/21 10:10 Morphine 2 Mg/1 Ml Inj IV 2 mg Q4H PRN Administration Pain, Moderate (4-6) Morphine Sulfate 4 mg 12/02/21 04:37 Morphine 4 Mg/1 Ml Inj IV Q4H PRN Pain , Severe (7-10) Multi-Ingred Cream/Lotion/Oil/Oint 1 applic 12/02/21 17:32 Mineral Oil/Petrolatum, White Ophth Oint 3.5 Gm OU Q4HR PRN Dry Eye(s) Ondansetron HCl 4 mg 12/02/21 04:37 Ondansetron 4 Mg/2 Ml Inj IV Q8H PRN Nausea And Vomiting Pravastatin Sodium 80 mg 12/02/21 22:00 12/05/21 21:10 Pravastatin 80 Mg Tab PO 80 mg QHS KHARI Administration Senna/Docusate Sodium 1 tab 12/02/21 22:00 12/06/21 11:23 Sennosides/Docusate Sodium 8.6/50 Mg Tab FEEDTUBE 1 tab BID KHARI Administration Sodium Chloride 10 ml 12/02/21 10:00 12/06/21 11:23 Sodium Chloride 0.9% 10 Ml Flush Syringe IV 10 ml BID KHARI Administration Sodium Chloride 10 ml 12/02/21 04:37 Sodium Chloride 0.9% 10 Ml Flush Syringe IV PRN PRN LINE FLUSH Nutrition/Malnutrition Assess - Dietary Evaluation Nutrition/Malnutrition Findings: Nutrition Notes Start: 12/03/21 16:28 Freq: Status: Active Protocol: Document 12/05/21 13:45 SIMBA (Rec: 12/05/21 13:55 SIMBA [email or web address]) Nutrition Notes Initial or Follow up Brief Note Pertinent Medications Propofol at 1.839ml/hr ( Provides 49 kcal) Height 5 ft 4 in Weight 61.3 kg [place] Body Weight (kg) 54.54 BMI 23.1 Subjective/Other Information Current TF rate does not provide adequate pro to meet at least 75% estimated pro needs. Percent of energy/protein needs met: 94% energy 70% pro Is patient on ventilator? Yes Is Patient Ambulatory and/or Out of Bed No [facility] [phone] Calculation [facility] Additional Notes Pro needs >1.2g/kg: >74g/day Fluid needs 1-1.5L/day Nutrition Intervention Nutrition Support: Increase Nepro goal TF rate to 30ml/hr with 130ml water flush q4h. Kcal 1,296 Protein (gm) 58 Carbohydrates (gm) 116 Fat (gm) 69 Fluid (mL) 523 Fiber (gm) 9 Follow-Up By: 12/06/21 Additional Comments F/U: new TF, vent status <REMBERTO RODRIGUEZ - Last Filed: 12/10/21 16:13> Assessment and Plan Assessment and plan: I saw and evaluated the patient. I agree with the findings and the plan of care as documented in the Nurse Practitioner's~note, with the following corrections and additions. Hospitalist Physical - Constitutional Vitals: Temp Pulse Resp BP Pulse Ox 99 F 102 H 22 107/53 98 12/10/21 12:36 12/10/21 15:08 12/10/21 12:36 12/10/21 15:08 12/10/21 15:08 HEART Score - HEART Score Troponin: Troponin T 2.500 ng/mL (0.00-0.029) H* 12/02/21 13:51 Results - Labs CBC & Chem 7: 12/10/21 04:30 12/10/21 04:30 Labs: Laboratory Last Values WBC 18.2 K/mm3 (4.5-11.0) H 12/10/21 04:30 RBC 2.72 M/mm3 (3.65-5.03) L 12/10/21 04:30 Hgb 7.9 gm/dl (10.1-14.3) L 12/10/21 04:30 Hct 24.4 % (30.3-42.9) L 12/10/21 04:30 MCV 90 fl (79-97) 12/10/21 04:30 MCH 29 pg (28-32) 12/10/21 04:30 MCHC 32 % (30-34) 12/10/21 04:30 RDW 16.0 % (13.2-15.2) H 12/10/21 04:30 Plt Count 257 K/mm3 (140-440) 12/10/21 04:30 Lymph % (Auto) 6.3 % (13.4-35.0) L 12/02/21 01:24 [place] % (Auto) 11.7 % (0.0-7.3) H 12/02/21 01:24 Eos % (Auto) 0.0 % (0.0-4.3) 12/02/21 01:24 Baso % (Auto) 0.2 % (0.0-1.8) 12/02/21 01:24 Lymph # (Auto) 1.0 K/mm3 (1.2-5.4) L 12/02/21 01:24 [place] # (Auto) 1.8 K/mm3 (0.0-0.8) H 12/02/21 01:24 Eos # (Auto) 0.0 K/mm3 (0.0-0.4) 12/02/21 01:24 Baso # (Auto) 0.0 K/mm3 (0.0-0.1) 12/02/21 01:24 Add Manual Diff Complete 12/03/21 04:00 Total Counted 100 12/03/21 04:00 Seg Neutrophils % 81.8 % (40.0-70.0) H 12/02/21 01:24 Seg Neuts % (Manual) 67.0 % (40.0-70.0) 12/03/21 04:00 Band Neutrophils % 18.0 % 12/03/21 04:00 Lymphocytes % (Manual) 7.0 % (13.4-35.0) L 12/03/21 04:00 Reactive Lymphs % (Man) 0 % 12/03/21 04:00 Monocytes % (Manual) 3.0 % (0.0-7.3) 12/03/21 04:00 Eosinophils % (Manual) 0 % (0.0-4.3) 12/03/21 04:00 Basophils % (Manual) 0 % (0.0-1.8) 12/03/21 04:00 Metamyelocytes % 4.0 % 12/03/21 04:00 Myelocytes % 1.0 % 12/03/21 04:00 Promyelocytes % 0 % 12/03/21 04:00 Blast Cells % 0 % 12/03/21 04:00 Nucleated RBC % Not Reportable 12/03/21 04:00 Seg Neutrophils # 12.6 K/mm3 (1.8-7.7) H 12/02/21 01:24 Seg Neutrophils # Man 4.1 K/mm3 (1.8-7.7) 12/03/21 04:00 Band Neutrophils # 1.1 K/mm3 12/03/21 04:00 Lymphocytes # (Manual) 0.4 K/mm3 (1.2-5.4) L 12/03/21 04:00 Abs React Lymphs (Man) 0.0 K/mm3 12/03/21 04:00 Monocytes # (Manual) 0.2 K/mm3 (0.0-0.8) 12/03/21 04:00 Eosinophils # (Manual) 0.0 K/mm3 (0.0-0.4) 12/03/21 04:00 Basophils # (Manual) 0.0 K/mm3 (0.0-0.1) 12/03/21 04:00 Metamyelocytes # 0.2 K/mm3 12/03/21 04:00 Myelocytes # 0.1 K/mm3 12/03/21 04:00 Promyelocytes # 0.0 K/mm3 12/03/21 04:00 Blast Cells # 0.0 K/mm3 12/03/21 04:00 WBC Morphology Not Reportable 12/03/21 04:00 Hypersegmented Neuts Not Reportable 12/03/21 04:00 Hyposegmented Neuts Not Reportable 12/03/21 04:00 Hypogranular Neuts Not Reportable 12/03/21 04:00 Smudge Cells Not Reportable 12/03/21 04:00 Toxic Granulation Not Reportable 12/03/21 04:00 Toxic Vacuolation Not Reportable 12/03/21 04:00 Dohle Bodies Not Reportable 12/03/21 04:00 Pelger-Huet Anomaly Not Reportable 12/03/21 04:00 Randee Rods Not Reportable 12/03/21 04:00 Platelet Estimate Consistent w auto 12/03/21 04:00 Clumped Platelets Few 12/03/21 04:00 Plt Clumps, EDTA Not Reportable 12/03/21 04:00 Large Platelets Few 12/03/21 04:00 Giant Platelets Not Reportable 12/03/21 04:00 Platelet Satelliting Not Reportable 12/03/21 04:00 Plt Morphology Comment Not Reportable 12/03/21 04:00 RBC Morphology Not Reportable 12/03/21 04:00 Dimorphic RBCs Not Reportable 12/03/21 04:00 Polychromasia Not Reportable 12/03/21 04:00 Hypochromasia Not Reportable 12/03/21 04:00 Poikilocytosis Not Reportable 12/03/21 04:00 Anisocytosis Not Reportable 12/03/21 04:00 Microcytosis Not Reportable 12/03/21 04:00 Macrocytosis Not Reportable 12/03/21 04:00 Spherocytes Not Reportable 12/03/21 04:00 Pappenheimer Bodies Not Reportable 12/03/21 04:00 Sickle Cells Not Reportable 12/03/21 04:00 Target Cells Not Reportable 12/03/21 04:00 Tear Drop Cells Not Reportable 12/03/21 04:00 Ovalocytes Not Reportable 12/03/21 04:00 Helmet Cells Not Reportable 12/03/21 04:00 [place] Bodies Not Reportable 12/03/21 04:00 Mobile Rings Not Reportable 12/03/21 04:00 [place] Cells 1+ 12/03/21 04:00 Bite Cells Not Reportable 12/03/21 04:00 Crenated Cell Not Reportable 12/03/21 04:00 Elliptocytes Not Reportable 12/03/21 04:00 Acanthocytes (Spur) Rare 12/03/21 04:00 Rouleaux Not Reportable 12/03/21 04:00 Hemoglobin C Crystals Not Reportable 12/03/21 04:00 Schistocytes Not Reportable 12/03/21 04:00 [place] parasites Not Reportable 12/03/21 04:00 Josemanuel Bodies Not Reportable 12/03/21 04:00 Hem Pathologist Commnt No 12/03/21 04:00 PT 15.9 Sec. (12.2-14.9) H 12/02/21 01:24 INR 1.15 (0.87-1.13) H 12/02/21 01:24 APTT 31.5 Sec. (24.2-36.6) 12/02/21 01:24 D-Dimer 1461.68 ng/mlDDU (0-234) H 12/02/21 04:18 ABG pH 7.511 pH Units (7.350-7.450) H 12/09/21 08:45 ABG pCO2 30.5 mm Hg 12/09/21 08:45 ABG pO2 74.1 mm Hg (80.0-90.0) L 12/09/21 08:45 ABG HCO3 23.9 mmol/L (20.0-26.0) 12/09/21 08:45 ABG O2 Saturation 97.0 % (95.0-99.0) 12/09/21 08:45 ABG O2 Content 8.6 (0.0-44) 12/09/21 08:45 ABG Base Excess 0.8 mmol/L (-2.0-3.0) 12/09/21 08:45 ABG Hemoglobin 6.4 gm/dl (12.0-16.0) L 12/09/21 08:45 ABG Carboxyhemoglobin 1.5 % (0.0-5.0) 12/09/21 08:45 ABG Methemoglobin 0.3 % (0.0-1.5) 12/09/21 08:45 VBG pH 7.167 (7.320-7.420) L* 12/02/21 01:24 Oxyhemoglobin 95.2 % (95.0-99.0) 12/09/21 08:45 FiO2 40 % 12/09/21 08:45 Sodium 142 mmol/L (137-145) 12/10/21 04:30 Potassium 3.9 mmol/L (3.6-5.0) 12/10/21 04:30 Chloride 99.3 mmol/L (98-107) 12/10/21 04:30 Carbon Dioxide 15 mmol/L (22-30) L D 12/10/21 04:30 Anion Gap 32 mmol/L 12/10/21 04:30 BUN 96 mg/dL (7-17) H 12/10/21 04:30 Creatinine 6.1 mg/dL (0.6-1.2) H 12/10/21 04:30 Estimated GFR 7 ml/min 12/10/21 04:30 BUN/Creatinine Ratio 16 % 12/10/21 04:30 Glucose 215 mg/dL (65-100) H 12/10/21 04:30 POC Glucose 222 mg/dL (70-105) H 12/10/21 15:49 Lactic Acid 3.90 mmol/L (0.7-2.0) H* 12/10/21 14:29 Calcium 8.2 mg/dL (8.4-10.2) L 12/10/21 04:30 Phosphorus 6.70 mg/dL (2.5-4.5) H D 12/10/21 04:30 Magnesium 2.20 mg/dL (1.7-2.3) 12/09/21 04:20 Ferritin 168.9 ng/mL (10.0-200.0) 12/02/21 04:18 Total Bilirubin 0.40 mg/dL (0.1-1.2) 12/02/21 01:24 AST 86 units/L (5-40) H 12/02/21 01:24 ALT 69 units/L (7-56) H 12/02/21 01:24 Alkaline Phosphatase 91 units/L (35-129) 12/02/21 01:24 Lactate Dehydrogenase 958 units/L (91-180) H 12/02/21 04:18 Total Creatine Kinase 254 units/L (30-135) H 12/02/21 01:24 CK-MB (CK-2) 20.2 ng/mL (0.0-4.0) H 12/02/21 01:24 CK-MB (CK-2) Rel Index 7.9 (0-4) H 12/02/21 01:24 Troponin T 2.500 ng/mL (0.00-0.029) H* 12/02/21 13:51 C-Reactive Protein 6.60 mg/dL (0.00-1.30) H 12/02/21 04:18 NT-Pro-B Natriuret Pep > 3500 pg/mL (0-900) H 12/02/21 01:24 Total Protein 7.7 g/dL (6.3-8.2) 12/02/21 01:24 Albumin 4.0 g/dL (3.9-5) 12/02/21 01:24 Albumin/Globulin Ratio 1.1 % 12/02/21 01:24 Triglycerides 112 mg/dL (2-149) 12/08/21 04:00 Cholesterol 177 mg/dL (50-199) 12/02/21 01:24 LDL Cholesterol Direct 91 mg/dL (50-130) 12/02/21 01:24 HDL Cholesterol 74 mg/dL (40-59) H 12/02/21 01:24 Cholesterol/HDL Ratio 2.39 % 12/02/21 01:24 Procalcitonin 28.53 ng/mL (<0.15) 12/10/21 14:29 Urine Color Yellow (Yellow) 12/03/21 13:48 Urine Turbidity Hazy (Clear) 12/03/21 13:48 Urine pH 7.0 (5.0-7.0) 12/03/21 13:48 Ur Specific [place] 1.009 (1.003-1.030) 12/03/21 13:48 Urine Protein >500 mg/dL (Negative) 12/03/21 13:48 Urine Glucose (UA) 50 mg/dL (Negative) 12/03/21 13:48 Urine Ketones Neg mg/dL (Negative) 12/03/21 13:48 Urine Blood Mod (Negative) 12/03/21 13:48 Urine Nitrite Neg (Negative) 12/03/21 13:48 Urine Bilirubin Neg (Negative) 12/03/21 13:48 Urine Urobilinogen < 2.0 mg/dL (<2.0) 12/03/21 13:48 Ur Leukocyte Esterase Neg (Negative) 12/03/21 13:48 Urine WBC (Auto) 9.0 /HPF (0.0-6.0) H 12/03/21 13:48 Urine RBC (Auto) 5.0 /HPF (0.0-6.0) 12/03/21 13:48 U Epithel Cells (Auto) 2.0 /HPF (0-13.0) 12/03/21 13:48 Urine Bacteria (Auto) 1+ /HPF (Negative) 12/02/21 00:52 Urine Mucus Few /HPF 12/03/21 13:48 Urine Yeast (Budding) Few /HPF 12/02/21 00:52 Urine Creatinine 24.4 mg/dL (0.1-20.0) H 12/02/21 00:52 Protein/Creatinin Ratio 4.55 12/02/21 00:52 Urine Sodium 109 mmol/L 12/02/21 00:52 Urine Total Protein 111 mg/dL (5-11.8) H 12/02/21 00:52 Random Vancomycin 14.0 ug/mL (0-40.0) 12/05/21 04:22 Coronavirus (PCR) Negative (Negative) 12/02/21 09:00 Hepatitis A IgM Ab Non-reactive (NonReactive) 12/05/21 04:22 Hep Bs Antigen Non-reactive (Negative) 12/05/21 04:22 Hep B Core IgM Ab Non-reactive (NonReactive) 12/05/21 04:22 Hepatitis C Antibody Non-reactive (NonReactive) 12/05/21 04:22 Palacio/IV: Voiding Method Incontinent Active Medications - Current Medications Current Medications: Generic Name Dose Route Start Last Admin Trade Name Freq PRN Reason Stop Dose Admin Acetaminophen 650 mg 12/02/21 04:37 12/07/21 04:58 Acetaminophen 325 Mg Tab PO 650 mg Q4H PRN Administration Pain MILD(1-3)/Fever >100.5/HYLTON Aspirin 81 mg 12/03/21 10:00 12/10/21 09:12 Aspirin 81 Mg Tab Chew PO 81 mg QDAY KHARI Administration Cilostazol 50 mg 12/02/21 22:00 12/10/21 09:31 Cilostazol 100 Mg Tab PO 50 mg BID KHARI Administration Clopidogrel Bisulfate 75 mg 12/03/21 10:00 12/10/21 09:12 Clopidogrel 75 Mg Tab PO 75 mg QDAY KHARI Administration Dextrose 0 ml 12/02/21 05:10 Dextrose 10% *Hypoglycemia IV PRN PRN Hypoglycemia Protocol Epoetin Lenny-epbx 10,000 unit 12/05/21 10:00 12/08/21 13:00 Epoetin Lenny-Epbx 10,000 Unit/1 Ml Vial IV 10,000 unit ED PRN Administration hemodialysis Famotidine 10 mg 12/04/21 22:00 12/10/21 09:12 Famotidine 10 Mg Tab PO 10 mg BID KHARI Administration Fentanyl 50 mcg 12/09/21 13:35 Fentanyl 100 Mcg/2 Ml Inj IV Q10MIN PRN ANALGESIA Heparin Sodium (Porcine) 5,000 unit 12/02/21 06:00 12/10/21 14:11 Heparin 5,000 Unit/1 Ml Vial SUB-Q 5,000 unit Q8HR KHARI Administration Hydrophilic Ointment 1 applic 12/02/21 17:32 Lip Therapy Vaseline TP Q2HR PRN Dry Lips Propofol 1,000 mg in 100 mls @ 1.839 mls/hr 12/02/21 18:00 12/10/21 07:00 Diprivan 10 Mg/Ml IV 0 mcg/kg/min TITR KHARI 0 mls/hr Titration Protocol 5 MCG/KG/MIN Sodium Chloride 100 mls @ 999 mls/hr 12/07/21 15:36 Nacl 0.9% IV ED PRN Hypotension Fentanyl Citrate 2,000 mcg in 100 mls @ 3.25 mls/hr 12/09/21 14:00 12/10/21 06:32 Fentanyl Drip Premix IV 1 mcg/kg/hr TITR KHARI 3.25 mls/hr Titration Protocol 1 MCG/KG/HR Vasopressin 20 unit/ Sodium 101 mls @ 9.09 mls/hr 12/09/21 14:00 12/10/21 04:39 Chloride IV 0.03 units/min TITR KHARI 9.09 mls/hr Administration Protocol 0.03 UNITS/MIN NORepinephrine/NS 8 MG-250 ML 8 mg in 250 mls @ 3.75 mls/hr 12/09/21 14:00 12/10/21 14:04 Norepinephrine/Ns 8 Mg-250 Ml (Double Conc) IV 2 mcg/min TITRATE KHARI 3.75 mls/hr Titration Protocol 2 MCG/MIN Cefepime HCl 1 gm in 100 mls @ 200 mls/hr 12/10/21 18:00 Cefepime/Ns 1 Gm/100 Ml IV QPM [facility] Protocol Insulin Glargine 25 units 12/09/21 22:00 12/09/21 21:30 Insulin Glargine 100 Units/Ml SUB-Q 25 units QHS KHARI Administration Insulin Human Lispro 0 unit 12/03/21 00:00 12/10/21 11:33 Insulin Lispro 100 Unit/Ml SUB-Q 3 unit Q6HR KHARI Administration Protocol Levalbuterol HCl 0.63 mg 12/02/21 10:00 Levalbuterol 0.63 Mg/3 Ml Nebu IH Q8HRT PRN Shortness Of Breath Magnesium Hydroxide 30 ml 12/02/21 04:37 Magnesium Hydroxide (Mom) Oral Liqd Udc PO Q4H PRN Constipation Metoprolol Tartrate 25 mg 12/02/21 15:00 12/10/21 09:12 Metoprolol Tartrate 25 Mg Tab PO Not Given QDAY KHARI Metoprolol Tartrate 2.5 mg 12/06/21 11:11 12/07/21 17:48 Metoprolol Tartrate 5 Mg/5 Ml Inj IV 2.5 mg Q6HR PRN Administration Tachycardia Multi-Ingred Cream/Lotion/Oil/Oint 1 applic 12/02/21 17:32 Mineral Oil/Petrolatum, White Ophth Oint 3.5 Gm OU Q4HR PRN Dry Eye(s) Ondansetron HCl 4 mg 12/02/21 04:37 Ondansetron 4 Mg/2 Ml Inj IV Q8H PRN Nausea And Vomiting Pravastatin Sodium 80 mg 12/02/21 22:00 12/09/21 21:17 Pravastatin 80 Mg Tab PO 80 mg QHS KHARI Administration Quetiapine Fumarate 50 mg 12/06/21 22:00 12/09/21 21:30 Quetiapine 25 Mg Tab PO 50 mg QHS KHARI Administration Senna/Docusate Sodium 1 tab 12/02/21 22:00 12/10/21 09:12 Sennosides/Docusate Sodium 8.6/50 Mg Tab FEEDTUBE 1 tab BID KHARI Administration Sodium Chloride 10 ml 12/02/21 10:00 12/10/21 09:12 Sodium Chloride 0.9% 10 Ml Flush Syringe IV 10 ml BID KHARI Administration Sodium Chloride 10 ml 12/02/21 04:37 Sodium Chloride 0.9% 10 Ml Flush Syringe IV PRN PRN LINE FLUSH Nutrition/Malnutrition Assess - Dietary Evaluation Nutrition/Malnutrition Findings: Nutrition Notes Start: 12/03/21 16:28 Freq: Status: Active Protocol: Document 12/06/21 16:59 ONI (Rec: 12/06/21 17:19 ONI [id number]) Nutrition Notes Initial or Follow up Brief Note Current Diagnosis Acute Kidney Injury,Diabetes, Sepsis,Hypertension, Respiratory Failure, Hyperlipidemia Other Pertinent Diagnosis Pneumonia, Lactic Acidosis, Metabolic Acidosis, RAYNE+HD, PVD, R-AKA. Current Diet TF-Nepro w/CARBSTEADY @ 30 ml/ hr (since D 12/05). Height 5 ft 4 in Weight 61.3 kg [place] Body Weight (kg) 54.54 BMI 23.1 Weight change and time frame No body weight change reported . Weight Status Appropriate Subjective/Other Information RD consult for routine F/U on TF tolerance. TF infusing as prescribed. No report available on tolerance. Pt continues on Mechanical Ventilation. Percent of energy/protein needs met: Prescribed TF-Nepro w/ CARBSTEADY @ 30 ml/hr provides for energy/protein needs (1, 296 Kcal/58 g) -in addition, Propofol adds 49 Kcal- during LOS, 108% Kcal; 78% AA. #1 Nutrition Diagnosis Inadequate oral intake Diagnosis Progress(for reassessment Continues documentation) Is patient on ventilator? Yes Is Patient Ambulatory and/or Out of Bed No REE-([facility]-confined to bed) [phone] Calculation Used for Recommendations [facility] Additional Notes Protein: >1.2 g/Kg; >74 g/day. Fluids: 1 ml/Kcal, or as per MD. Nutrition Intervention Nutrition Support: Nepro w/CARBSTEADY @ 30 ml/hr. Flush: 130 ml water Q 4 hr, or as per MD. Kcal 1,296 Protein (gm) 58 Carbohydrates (gm) 116 Fat (gm) 69 Fluid (mL) 523 Fiber (gm) 9 % RDI: 104% Kcal; 78% AA. Goal #1 Provide at least 75% of energy /protein needs through Enteral Feeding during LOS. Goal #2 Maintain body weight within +/ -3% of admission body weight during LOS. Follow-Up By: 12/12/21 Additional Comments Continue monitoring TF tolerance and BM.
[2021-12-06] MEDS ORDERED: SODIUM CHLORIDE 0.9% 100 ML IV PRN (12:00)
--- NOTE | 2021-12-06 14:33 | Progress Note ---
Assessment and Plan Acute Hypoxemic Respiratory Failure of MVS Pulmonary Edema Vs Pneumonia - Code met on 12/02 was intubated Severe Sepsis Pneumonia Leukocytosis-improved Lactic Acidosis/Metabolic acidosis Acute Kidney Injury(RAYNE) most likely ATN Hypokalemia Acute Metabolic Acidosis Hypertension Elevated BNP Elevated troponin Elevated D-dimer Type 2 Diabetes mellitus - continue to titrate supplemental oxygen SpO2 keep 89-92% - VAP bundle addressed, aspiration HOB>30 - Lung protective strategies, switch to conventional mode, airway pressures have improved -Bronchodilators with pulmonary hygiene per RT -will start SAT and SBTs in the morning as tolerated -CXR,ABG in the morning - accuchecks with glycemic control per SSI (While critically ill target blood glucose of 140-180 mg/dL; avoid hypoglycemia) - sedation prn for target RASS 0 to -1 -SAT and SBT today. Low dose Seroquel at night, while monitoring QTc to help wean off Proprofol - continue to avoid nephrotoxins, renally dose all medications -continue to avoid benzodiazepines , reduce the possibility of delirium - prn analgesia per CPOT score >3 - Maintenance of sleep-wake cycle, avoid delirium - Enteral nutritional support - NGT in place, tolerating enteric nutritional support - Stress ulcer and VTE prophylaxis - PT/OT/ROM exercise - Mobility, off loading, and frequent turning per facility protocol to prevent pressure ulcers - Monitor hemodynamics closely -Supportive transfusions as clinically indicated to keep HgB >7g/dL -Discontinue Palacio catheter, bladder scan q shift and straight cath as indicated and per protocol - continue other care per attending / other consultants CONDITION: CRITICAL PROGNOSIS: GUARDED CODE STATUS: FULL CODE The high probability of a clinically significant, sudden or life-threatening deterioration of the [respiratory, cardiovascular, renal & neurologic] system(s) required my full and direct attention, intervention and personal management. The aggregate critical care time was [35] minutes without overlap. Time includes spent on; [x] Data Review and interpretation [x] Patient assessment and monitoring of vital signs [x] Documentation [x] Medication orders and management Subjective Date of service: 12/06/21 Interval history: This is a 86-year-old AA female with known past medical history of hypertension, diabetes mellitus, PVD, and right AKA initially admitted to the floor for sepsis, ARF, and pneumonia versus pulmonary edema. Patient was a code met on 12/02 due to acute hypoxemic respiratory failure requiring intubation and ventilatory support. Follow up: For acute hypoxemic resp failure on MVS; RAYNE ; Acute on chronic meta bolic encephalopathy; RAYNE Seen and examined. Vitals,labs, medications, chart and imaging reviewed. Remains unresponsive with episodes of agitation- on Propofol at 10mcg Palacio in place, remains anuric Remains on PCV Pi 22/+8/60%- Discussed with respiratory and nursing care team s/p Session of HD yesterday and she tolerated it Objective - Exam Narrative Exam: General appearance: Present: no acute distress, other (Intubated and Sedated) - EENT Eyes: Present: PERRL Left mastectomy scar RIJ Trialysis catheter NGT in nares - Respiratory Respiratory effort: normal Respiratory: bilateral: diminished - Cardiovascular Rhythm: regular Heart Sounds: Present: S1 & S2 - Extremities Extremities: no ischemia, pulses intact, pulses symmetrical s/p right AKA Extremity abnormal: edema - Peripheral Assessment Generalized Edema Type: Non-pitting Edema Degree: 1+ Capillary Refill: < 3 seconds Skin Temperature: Warm Peripheral Pulses: within normal limits - Abdominal General gastrointestinal: soft, non-distended, normal bowel sounds Palacio in place - Integumentary Integumentary: Present: warm, dry - Psychiatric Psychiatric: other (Intubated and Sedated) - Neurologic Neurologic: other (Intubated and Sedated) Vital Signs - 12hr 12/06/21 12/06/21 12/06/21 03:00 03:22 03:30 Temperature 99.8 F H Pulse Rate 121 H 124 H Pulse Rate [ From Monitor] Respiratory Rate Blood Pressure 124/67 127/59 O2 Sat by Pulse 95 95 Oximetry 12/06/21 12/06/21 12/06/21 04:00 04:30 05:00 Temperature Pulse Rate 122 H 123 H 119 H Pulse Rate [ 108 H From Monitor] Respiratory 18 Rate Blood Pressure 131/66 119/63 132/64 O2 Sat by Pulse 95 94 95 Oximetry 12/06/21 12/06/21 12/06/21 05:30 06:00 06:01 Temperature Pulse Rate 116 H 114 H 113 H Pulse Rate [ From Monitor] Respiratory Rate Blood Pressure 118/59 112/56 112/56 O2 Sat by Pulse 92 94 94 Oximetry 12/06/21 12/06/21 12/06/21 07:54 08:00 11:23 Temperature 99.2 F Pulse Rate 110 H 118 H Pulse Rate [ From Monitor] Respiratory Rate Blood Pressure 114/57 123/57 O2 Sat by Pulse 96 Oximetry 12/06/21 12/06/21 11:57 12:00 Temperature 98.8 F Pulse Rate 106 H Pulse Rate [ From Monitor] Respiratory Rate Blood Pressure 111/58 O2 Sat by Pulse 94 Oximetry CBC and BMP: 12/07/21 04:00 12/07/21 04:00 ABG, PT/INR, D-dimer: ABG ABG pH 7.555 pH Units (7.350-7.450) H 12/06/21 06:05 ABG pCO2 31.5 mm Hg 12/06/21 06:05 ABG pO2 95.3 mm Hg (80.0-90.0) H 12/06/21 06:05 ABG O2 Saturation 97.8 % (95.0-99.0) 12/06/21 06:05 PT/INR, D-dimer PT 15.9 Sec. (12.2-14.9) H 12/02/21 01:24 INR 1.15 (0.87-1.13) H 12/02/21 01:24 D-Dimer 1461.68 ng/mlDDU (0-234) H 12/02/21 04:18 Abnormal lab findings: Abnormal Labs 12/02/21 12/02/21 12/02/21 00:52 00:52 01:24 WBC 15.4 H RBC Hgb Hct MCHC RDW 15.8 H Lymph % (Auto) 6.3 L [place] % (Auto) 11.7 H Lymph # (Auto) 1.0 L [place] # (Auto) 1.8 H Seg Neutrophils % 81.8 H Lymphocytes % (Manual) Seg Neutrophils # 12.6 H Lymphocytes # (Manual) PT INR D-Dimer ABG pH ABG pO2 ABG HCO3 ABG O2 Saturation ABG Base Excess ABG Hemoglobin VBG pH Oxyhemoglobin Sodium Potassium Chloride Carbon Dioxide BUN Creatinine Glucose POC Glucose Lactic Acid Calcium Phosphorus AST ALT Lactate Dehydrogenase Total Creatine Kinase CK-MB (CK-2) CK-MB (CK-2) Rel Index Troponin T C-Reactive Protein NT-Pro-B Natriuret Pep Triglycerides HDL Cholesterol Urine WBC (Auto) 27.0 H Urine Creatinine 24.4 H Urine Total Protein 111 H 0212/02/21 12/02/21 01:24 01:24 01:24 WBC RBC Hgb Hct MCHC RDW Lymph % (Auto) [place] % (Auto) Lymph # (Auto) [place] # (Auto) Seg Neutrophils % Lymphocytes % (Manual) Seg Neutrophils # Lymphocytes # (Manual) PT 15.9 H INR 1.15 H D-Dimer ABG pH ABG pO2 ABG HCO3 ABG O2 Saturation ABG Base Excess ABG Hemoglobin VBG pH Oxyhemoglobin Sodium Potassium 3.5 L Chloride Carbon Dioxide 4 L* BUN 43 H Creatinine 5.1 H Glucose 239 H POC Glucose Lactic Acid 15.70 H* Calcium Phosphorus AST 86 H ALT 69 H Lactate Dehydrogenase Total Creatine Kinase 254 H CK-MB (CK-2) 20.2 H CK-MB (CK-2) Rel Index 7.9 H Troponin T C-Reactive Protein NT-Pro-B Natriuret Pep Triglycerides HDL Cholesterol Urine WBC (Auto) Urine Creatinine Urine Total Protein 12/02/21 12/02/21 12/02/21 01:24 01:24 04:18 WBC RBC Hgb Hct MCHC RDW Lymph % (Auto) [place] % (Auto) Lymph # (Auto) [place] # (Auto) Seg Neutrophils % Lymphocytes % (Manual) Seg Neutrophils # Lymphocytes # (Manual) PT INR D-Dimer 1461.68 H ABG pH ABG pO2 ABG HCO3 ABG O2 Saturation ABG Base Excess ABG Hemoglobin VBG pH 7.167 L* Oxyhemoglobin Sodium Potassium Chloride Carbon Dioxide BUN Creatinine Glucose POC Glucose Lactic Acid Calcium Phosphorus AST ALT Lactate Dehydrogenase Total Creatine Kinase CK-MB (CK-2) CK-MB (CK-2) Rel Index Troponin T 2.600 H* C-Reactive Protein NT-Pro-B Natriuret Pep > 3500 H Triglycerides HDL Cholesterol 74 H Urine WBC (Auto) Urine Creatinine Urine Total Protein 12/02/21 12/02/21 12/02/21 04:18 04:18 10:47 WBC RBC Hgb Hct MCHC RDW Lymph % (Auto) [place] % (Auto) Lymph # (Auto) [place] # (Auto) Seg Neutrophils % Lymphocytes % (Manual) Seg Neutrophils # Lymphocytes # (Manual) PT INR D-Dimer ABG pH ABG pO2 ABG HCO3 ABG O2 Saturation ABG Base Excess ABG Hemoglobin VBG pH Oxyhemoglobin Sodium Potassium Chloride Carbon Dioxide 7 L* BUN 51 H Creatinine 5.9 H Glucose 255 H 224 H POC Glucose Lactic Acid 15.40 H* Calcium Phosphorus AST ALT Lactate Dehydrogenase 958 H Total Creatine Kinase CK-MB (CK-2) CK-MB (CK-2) Rel Index Troponin T C-Reactive Protein 6.60 H NT-Pro-B Natriuret Pep Triglycerides HDL Cholesterol Urine WBC (Auto) Urine Creatinine Urine Total Protein 12/02/21 12/02/21 12/02/21 10:53 13:51 13:51 WBC RBC Hgb Hct MCHC RDW Lymph % (Auto) [place] % (Auto) Lymph # (Auto) [place] # (Auto) Seg Neutrophils % Lymphocytes % (Manual) Seg Neutrophils # Lymphocytes # (Manual) PT INR D-Dimer ABG pH ABG pO2 ABG HCO3 ABG O2 Saturation ABG Base Excess ABG Hemoglobin VBG pH Oxyhemoglobin Sodium Potassium Chloride Carbon Dioxide BUN Creatinine Glucose POC Glucose 194 H Lactic Acid 11.70 H* Calcium Phosphorus AST ALT Lactate Dehydrogenase Total Creatine Kinase CK-MB (CK-2) CK-MB (CK-2) Rel Index Troponin T 2.500 H* C-Reactive Protein NT-Pro-B Natriuret Pep Triglycerides HDL Cholesterol Urine WBC (Auto) Urine Creatinine Urine Total Protein 12/02/21 12/02/21 12/02/21 20:31 22:56 22:56 WBC RBC Hgb Hct MCHC RDW Lymph % (Auto) [place] % (Auto) Lymph # (Auto) [place] # (Auto) Seg Neutrophils % Lymphocytes % (Manual) Seg Neutrophils # Lymphocytes # (Manual) PT INR D-Dimer ABG pH ABG pO2 156.2 H ABG HCO3 15.4 L ABG O2 Saturation ABG Base Excess -8.7 L ABG Hemoglobin VBG pH Oxyhemoglobin Sodium 147 H Potassium 3.4 L Chloride Carbon Dioxide 18 L D BUN 59 H Creatinine 6.2 H Glucose 150 H POC Glucose Lactic Acid 6.10 H* Calcium 8.3 L Phosphorus AST ALT Lactate Dehydrogenase Total Creatine Kinase CK-MB (CK-2) CK-MB (CK-2) Rel Index Troponin T C-Reactive Protein NT-Pro-B Natriuret Pep Triglycerides HDL Cholesterol Urine WBC (Auto) Urine Creatinine Urine Total Protein 12/03/21 12/03/21 12/03/21 00:25 00:42 04:00 WBC RBC Hgb Hct MCHC RDW 15.4 H Lymph % (Auto) [place] % (Auto) Lymph # (Auto) [place] # (Auto) Seg Neutrophils % Lymphocytes % (Manual) 7.0 L Seg Neutrophils # Lymphocytes # (Manual) 0.4 L PT INR D-Dimer ABG pH ABG pO2 ABG HCO3 ABG O2 Saturation ABG Base Excess ABG Hemoglobin VBG pH Oxyhemoglobin Sodium Potassium Chloride Carbon Dioxide BUN Creatinine Glucose POC Glucose 150 H Lactic Acid 5.80 H* Calcium Phosphorus AST ALT Lactate Dehydrogenase Total Creatine Kinase CK-MB (CK-2) CK-MB (CK-2) Rel Index Troponin T C-Reactive Protein NT-Pro-B Natriuret Pep Triglycerides HDL Cholesterol Urine WBC (Auto) Urine Creatinine Urine Total Protein 12/03/21 12/03/21 12/03/21 04:00 06:14 08:35 WBC RBC Hgb Hct MCHC RDW Lymph % (Auto) [place] % (Auto) Lymph # (Auto) [place] # (Auto) Seg Neutrophils % Lymphocytes % (Manual) Seg Neutrophils # Lymphocytes # (Manual) PT INR D-Dimer ABG pH 7.533 H ABG pO2 120.9 H ABG HCO3 ABG O2 Saturation ABG Base Excess ABG Hemoglobin 11.9 L VBG pH Oxyhemoglobin Sodium Potassium 3.5 L Chloride Carbon Dioxide 21 L BUN 63 H Creatinine 6.3 H Glucose 158 H POC Glucose 145 H Lactic Acid Calcium 7.9 L Phosphorus AST ALT Lactate Dehydrogenase Total Creatine Kinase CK-MB (CK-2) CK-MB (CK-2) Rel Index Troponin T C-Reactive Protein NT-Pro-B Natriuret Pep Triglycerides HDL Cholesterol Urine WBC (Auto) Urine Creatinine Urine Total Protein 12/03/21 12/03/21 12/03/21 12:35 13:48 15:51 WBC RBC Hgb Hct MCHC RDW Lymph % (Auto) [place] % (Auto) Lymph # (Auto) [place] # (Auto) Seg Neutrophils % Lymphocytes % (Manual) Seg Neutrophils # Lymphocytes # (Manual) PT INR D-Dimer ABG pH ABG pO2 ABG HCO3 ABG O2 Saturation ABG Base Excess ABG Hemoglobin VBG pH Oxyhemoglobin Sodium Potassium Chloride Carbon Dioxide BUN Creatinine Glucose POC Glucose 151 H 168 H Lactic Acid Calcium Phosphorus AST ALT Lactate Dehydrogenase Total Creatine Kinase CK-MB (CK-2) CK-MB (CK-2) Rel Index Troponin T C-Reactive Protein NT-Pro-B Natriuret Pep Triglycerides HDL Cholesterol Urine WBC (Auto) 9.0 H Urine Creatinine Urine Total Protein 12/03/21 12/03/21 12/03/21 16:20 16:35 23:21 WBC RBC Hgb Hct MCHC RDW Lymph % (Auto) [place] % (Auto) Lymph # (Auto) [place] # (Auto) Seg Neutrophils % Lymphocytes % (Manual) Seg Neutrophils # Lymphocytes # (Manual) PT INR D-Dimer ABG pH ABG pO2 ABG HCO3 ABG O2 Saturation ABG Base Excess ABG Hemoglobin VBG pH Oxyhemoglobin Sodium Potassium Chloride 92.3 L Carbon Dioxide BUN 67 H Creatinine 7.1 H Glucose 160 H POC Glucose 158 H 161 H Lactic Acid Calcium 7.3 L Phosphorus AST ALT Lactate Dehydrogenase Total Creatine Kinase CK-MB (CK-2) CK-MB (CK-2) Rel Index Troponin T C-Reactive Protein NT-Pro-B Natriuret Pep Triglycerides HDL Cholesterol Urine WBC (Auto) Urine Creatinine Urine Total Protein 12/04/21 12/04/21 12/04/21 04:18 04:18 04:18 WBC RBC 3.29 L Hgb 10.0 L Hct 28.4 L D MCHC 35 H RDW 15.4 H Lymph % (Auto) [place] % (Auto) Lymph # (Auto) [place] # (Auto) Seg Neutrophils % Lymphocytes % (Manual) Seg Neutrophils # Lymphocytes # (Manual) PT INR D-Dimer ABG pH ABG pO2 ABG HCO3 ABG O2 Saturation ABG Base Excess ABG Hemoglobin VBG pH Oxyhemoglobin Sodium Potassium 3.5 L Chloride 91.5 L Carbon Dioxide 33 H D BUN 74 H Creatinine 7.5 H Glucose 155 H POC Glucose Lactic Acid 4.60 H* Calcium 7.2 L Phosphorus 4.60 H AST ALT Lactate Dehydrogenase Total Creatine Kinase CK-MB (CK-2) CK-MB (CK-2) Rel Index Troponin T C-Reactive Protein NT-Pro-B Natriuret Pep Triglycerides HDL Cholesterol Urine WBC (Auto) Urine Creatinine Urine Total Protein 12/04/21 12/04/21 12/04/21 10:29 11:08 15:46 WBC RBC Hgb Hct MCHC RDW Lymph % (Auto) [place] % (Auto) Lymph # (Auto) [place] # (Auto) Seg Neutrophils % Lymphocytes % (Manual) Seg Neutrophils # Lymphocytes # (Manual) PT INR D-Dimer ABG pH 7.504 H ABG pO2 40.8 L ABG HCO3 30.1 H ABG O2 Saturation 75.1 L ABG Base Excess 6.6 H ABG Hemoglobin 10.2 L VBG pH Oxyhemoglobin 73.7 L Sodium Potassium Chloride Carbon Dioxide BUN Creatinine Glucose POC Glucose 146 H 155 H Lactic Acid Calcium Phosphorus AST ALT Lactate Dehydrogenase Total Creatine Kinase CK-MB (CK-2) CK-MB (CK-2) Rel Index Troponin T C-Reactive Protein NT-Pro-B Natriuret Pep Triglycerides HDL Cholesterol Urine WBC (Auto) Urine Creatinine Urine Total Protein 12/04/21 12/05/21 12/05/21 23:30 04:22 04:22 WBC 12.7 H RBC 3.33 L Hgb 9.6 L Hct 29.3 L MCHC RDW 15.5 H Lymph % (Auto) [place] % (Auto) Lymph # (Auto) [place] # (Auto) Seg Neutrophils % Lymphocytes % (Manual) Seg Neutrophils # Lymphocytes # (Manual) PT INR D-Dimer ABG pH ABG pO2 ABG HCO3 ABG O2 Saturation ABG Base Excess ABG Hemoglobin VBG pH Oxyhemoglobin Sodium Potassium Chloride 90.3 L Carbon Dioxide BUN 89 H Creatinine 8.8 H Glucose 216 H POC Glucose 183 H Lactic Acid Calcium 8.0 L Phosphorus 4.60 H AST ALT Lactate Dehydrogenase Total Creatine Kinase CK-MB (CK-2) CK-MB (CK-2) Rel Index Troponin T C-Reactive Protein NT-Pro-B Natriuret Pep Triglycerides 280 H HDL Cholesterol Urine WBC (Auto) Urine Creatinine Urine Total Protein 12/05/21 12/05/21 12/05/21 10:15 10:54 11:57 WBC RBC Hgb Hct MCHC RDW Lymph % (Auto) [place] % (Auto) Lymph # (Auto) [place] # (Auto) Seg Neutrophils % Lymphocytes % (Manual) Seg Neutrophils # Lymphocytes # (Manual) PT INR D-Dimer ABG pH 7.518 H ABG pO2 43.4 L ABG HCO3 28.8 H ABG O2 Saturation 78.6 L ABG Base Excess 5.6 H ABG Hemoglobin 8.4 L VBG pH Oxyhemoglobin 77.1 L Sodium Potassium Chloride Carbon Dioxide BUN Creatinine Glucose POC Glucose 187 H 196 H Lactic Acid Calcium Phosphorus AST ALT Lactate Dehydrogenase Total Creatine Kinase CK-MB (CK-2) CK-MB (CK-2) Rel Index Troponin T C-Reactive Protein NT-Pro-B Natriuret Pep Triglycerides HDL Cholesterol Urine WBC (Auto) Urine Creatinine Urine Total Protein 12/05/21 12/05/21 12/05/21 16:34 18:02 23:39 WBC RBC Hgb Hct MCHC RDW Lymph % (Auto) [place] % (Auto) Lymph # (Auto) [place] # (Auto) Seg Neutrophils % Lymphocytes % (Manual) Seg Neutrophils # Lymphocytes # (Manual) PT INR D-Dimer ABG pH ABG pO2 ABG HCO3 ABG O2 Saturation ABG Base Excess ABG Hemoglobin VBG pH Oxyhemoglobin Sodium Potassium Chloride Carbon Dioxide BUN Creatinine Glucose POC Glucose 178 H 167 H 235 H Lactic Acid Calcium Phosphorus AST ALT Lactate Dehydrogenase Total Creatine Kinase CK-MB (CK-2) CK-MB (CK-2) Rel Index Troponin T C-Reactive Protein NT-Pro-B Natriuret Pep Triglycerides HDL Cholesterol Urine WBC (Auto) Urine Creatinine Urine Total Protein 12/06/21 12/06/21 12/06/21 04:35 04:35 05:37 WBC 11.8 H RBC 2.99 L Hgb 8.9 L Hct 26.1 L MCHC RDW Lymph % (Auto) [place] % (Auto) Lymph # (Auto) [place] # (Auto) Seg Neutrophils % Lymphocytes % (Manual) Seg Neutrophils # Lymphocytes # (Manual) PT INR D-Dimer ABG pH ABG pO2 ABG HCO3 ABG O2 Saturation ABG Base Excess ABG Hemoglobin VBG pH Oxyhemoglobin Sodium Potassium Chloride 95.0 L Carbon Dioxide BUN 59 H Creatinine 6.3 H Glucose 244 H POC Glucose 251 H Lactic Acid Calcium Phosphorus AST ALT Lactate Dehydrogenase Total Creatine Kinase CK-MB (CK-2) CK-MB (CK-2) Rel Index Troponin T C-Reactive Protein NT-Pro-B Natriuret Pep Triglycerides HDL Cholesterol Urine WBC (Auto) Urine Creatinine Urine Total Protein 12/06/21 12/06/21 06:05 11:45 WBC RBC Hgb Hct MCHC RDW Lymph % (Auto) [place] % (Auto) Lymph # (Auto) [place] # (Auto) Seg Neutrophils % Lymphocytes % (Manual) Seg Neutrophils # Lymphocytes # (Manual) PT INR D-Dimer ABG pH 7.555 H ABG pO2 95.3 H ABG HCO3 27.3 H ABG O2 Saturation ABG Base Excess 4.9 H ABG Hemoglobin 9.0 L VBG pH Oxyhemoglobin Sodium Potassium Chloride Carbon Dioxide BUN Creatinine Glucose POC Glucose 249 H Lactic Acid Calcium Phosphorus AST ALT Lactate Dehydrogenase Total Creatine Kinase CK-MB (CK-2) CK-MB (CK-2) Rel Index Troponin T C-Reactive Protein NT-Pro-B Natriuret Pep Triglycerides HDL Cholesterol Urine WBC (Auto) Urine Creatinine Urine Total Protein Chest x-ray: image reviewed Allied health notes reviewed: RT
--- NOTE | 2021-12-06 16:25 | Progress Note ---
Assessment and Plan Impression: * Oligoanuric acute kidney injury secondary to ATN --HD intiation on Dec 06 * Metabolic acidosis, severe * Lactic acidosis * Acute hypoxic respiratory failure * Sepsis - ?bilateral PNA * NSTEMI Plan: * Patient is s/p first HD treatment yesterday * HD again today - UF as tolerated * Reassess need for HD tomorrow * Monitor for evidence of renal recovery * Vent management per pulmonary * Cardiology recommendations reviewed * Abx per primary team/ID * Dose medications for renal * Avoid potential nephrotoxins * Strict I/O Subjective Date of service: 12/06/21 Interval history: No acute events. Intubated - FiO2 65% Objective - Vital Signs Vital signs: Vital Signs - 12hr 12/06/21 12/06/21 12/06/21 04:30 05:00 05:30 Temperature Pulse Rate 123 H 119 H 116 H Blood Pressure 119/63 132/64 118/59 O2 Sat by Pulse 94 95 92 Oximetry 12/06/21 12/06/21 12/06/21 06:00 06:01 06:30 Temperature Pulse Rate 114 H 113 H 115 H Blood Pressure 112/56 112/56 101/48 O2 Sat by Pulse 94 94 96 Oximetry 12/06/21 12/06/21 12/06/21 07:00 07:30 07:54 Temperature Pulse Rate 113 H 104 H 110 H Blood Pressure 111/54 102/50 114/57 O2 Sat by Pulse 96 97 96 Oximetry 12/06/21 12/06/21 12/06/21 08:00 08:30 09:00 Temperature 99.2 F Pulse Rate 109 H 115 H 111 H Blood Pressure 114/55 117/61 119/57 O2 Sat by Pulse 96 93 93 Oximetry 12/06/21 12/06/21 12/06/21 09:30 10:00 10:30 Temperature Pulse Rate 114 H 111 H 113 H Blood Pressure 116/59 120/58 122/55 O2 Sat by Pulse 93 94 93 Oximetry 12/06/21 12/06/21 12/06/21 11:00 11:23 11:30 Temperature Pulse Rate 112 H 118 H 115 H Blood Pressure 121/61 123/57 120/60 O2 Sat by Pulse 94 94 Oximetry 12/06/21 12/06/21 12/06/21 11:57 12:00 12:30 Temperature 98.8 F Pulse Rate 106 H 107 H 101 H Blood Pressure 111/58 111/58 102/52 O2 Sat by Pulse 94 94 95 Oximetry 12/06/21 12/06/21 12/06/21 13:00 13:30 14:00 Temperature Pulse Rate 97 H 99 H 100 H Blood Pressure 100/48 100/48 106/56 O2 Sat by Pulse 96 96 96 Oximetry 12/06/21 12/06/21 12/06/21 14:30 15:00 15:30 Temperature Pulse Rate 98 H 97 H 100 H Blood Pressure 100/47 99/48 102/48 O2 Sat by Pulse 96 96 Oximetry 12/06/21 12/06/21 15:45 16:00 Temperature Pulse Rate 99 H 102 H Blood Pressure 110/57 117/58 O2 Sat by Pulse Oximetry - General Appearance General appearance: well-developed, well-nourished, intubated EENT: ATNC, other (ETT in place) Respiratory: Present: Clear to Ascultation Cardiology: regular, S1S2 Gastrointestinal: normal, no distended Integumentary: no rash, warm and dry Psychiatric: other (sedated) - Lab 12/06/21 04:35 12/06/21 04:35 Most recent lab results ABG pH 7.555 pH Units (7.350-7.450) H 12/06/21 06:05 ABG pCO2 31.5 mm Hg 12/06/21 06:05 ABG pO2 95.3 mm Hg (80.0-90.0) H 12/06/21 06:05 ABG HCO3 27.3 mmol/L (20.0-26.0) H 12/06/21 06:05 ABG O2 Saturation 97.8 % (95.0-99.0) 12/06/21 06:05 Calcium 9.3 mg/dL (8.4-10.2) D 12/06/21 04:35 Phosphorus 4.60 mg/dL (2.5-4.5) H 12/05/21 04:22 Magnesium 2.20 mg/dL (1.7-2.3) 12/05/21 04:22 Urine Creatinine 24.4 mg/dL (0.1-20.0) H 12/02/21 00:52 Urine Sodium 109 mmol/L 12/02/21 00:52 Urine Total Protein 111 mg/dL (5-11.8) H 12/02/21 00:52 Medications & Allergies - Medications Allergies/Adverse Reactions: Allergies No Known Allergies Allergy (Verified 04/05/19 15:30) Home Medications: Home Medications Medication Instructions Recorded Confirmed Last Taken Type Gabapentin 300 mg PO BID 04/05/19 04/06/19 Unknown History Metoprolol [Lopressor TAB] 25 mg PO QDAY 04/05/19 04/06/19 Unknown History Simvastatin 40 mg PO QHS 04/05/19 04/06/19 Unknown History Vitamin D2 50,000 units PO QWEEK 04/05/19 04/06/19 Unknown History amLODIPine 10 mg PO DAILY 04/05/19 04/05/19 Unknown History metFORMIN [Glucophage] 500 mg PO QHS 04/05/19 04/06/19 Unknown History raNITIdine HCl [Zantac] 300 mg PO QDAY 04/05/19 04/06/19 Unknown History Aspirin [Aspirin BABY CHEW TAB] 81 mg PO QDAY #30 tab.chew 04/12/19 Unknown Rx Clopidogrel [Plavix] 75 mg PO QDAY #30 tablet 04/12/19 Unknown Rx cilostazoL [Pletal] 50 mg PO BID #30 tablet 04/12/19 Unknown Rx oxyCODONE /ACETAMINOPHEN [Percocet 2 tab PO Q6H PRN #20 tablet 04/12/19 Unknown Rx 5/325 mg] Active Medications: Generic Name Dose Route Start Last Admin Trade Name Freq PRN Reason Stop Dose Admin Acetaminophen 650 mg 12/02/21 04:37 Acetaminophen 325 Mg Tab PO Q4H PRN Pain MILD(1-3)/Fever >100.5/HYLTON Alprazolam 0.5 mg 12/02/21 11:30 12/05/21 04:40 Alprazolam 0.5 Mg Tab PO 0.5 mg Q8H PRN Administration Anxiety Amlodipine Besylate 10 mg 12/03/21 10:00 12/06/21 11:39 Amlodipine 10 Mg Tab PO Not Given DAILY KHARI Aspirin 81 mg 12/03/21 10:00 12/06/21 11:23 Aspirin 81 Mg Tab Chew PO 81 mg QDAY KHARI Administration Cilostazol 50 mg 12/02/21 22:00 12/06/21 11:24 Cilostazol 100 Mg Tab PO 50 mg BID KHARI Administration Clopidogrel Bisulfate 75 mg 12/03/21 10:00 12/06/21 11:23 Clopidogrel 75 Mg Tab PO 75 mg QDAY KHARI Administration Dextrose 0 ml 12/02/21 05:10 Dextrose 10% *Hypoglycemia IV PRN PRN Hypoglycemia Protocol Epoetin Lenny-epbx 10,000 unit 12/05/21 10:00 Epoetin Lenny-Epbx 10,000 Unit/1 Ml Vial IV ED PRN hemodialysis Famotidine 10 mg 12/04/21 22:00 12/06/21 11:23 Famotidine 10 Mg Tab PO 10 mg BID KHARI Administration Heparin Sodium (Porcine) 5,000 unit 12/02/21 06:00 12/06/21 13:38 Heparin 5,000 Unit/1 Ml Vial SUB-Q 5,000 unit Q8HR KHARI Administration Hydrophilic Ointment 1 applic 12/02/21 17:32 Lip Therapy Vaseline TP Q2HR PRN Dry Lips Cefepime HCl 1 gm in 100 mls @ 200 mls/hr 12/02/21 18:00 12/05/21 18:22 Cefepime/Ns 1 Gm/100 Ml IV 12/08/21 17:59 200 mls/hr QPM KHARI Administration Protocol Propofol 1,000 mg in 100 mls @ 1.839 mls/hr 12/02/21 18:00 12/05/21 23:27 Diprivan 10 Mg/Ml IV 10 mcg/kg/min TITR KHARI 3.678 mls/hr Titration Protocol 5 MCG/KG/MIN Sodium Chloride 100 mls @ 999 mls/hr 12/06/21 12:00 Nacl 0.9% IV ED PRN Hypotension Insulin Glargine 10 units 12/06/21 22:00 Insulin Glargine 100 Units/Ml SUB-Q QHS KHARI Insulin Human Lispro 0 unit 12/03/21 00:00 12/06/21 13:38 Insulin Lispro 100 Unit/Ml SUB-Q 4 unit Q6HR KHARI Administration Protocol Levalbuterol HCl 0.63 mg 12/02/21 10:00 Levalbuterol 0.63 Mg/3 Ml Nebu IH Q8HRT PRN Shortness Of Breath Lorazepam 1 mg 12/02/21 14:22 12/02/21 15:18 Lorazepam 2 Mg/Ml Vial IV 1 mg Q6H PRN Administration Agitation Magnesium Hydroxide 30 ml 12/02/21 04:37 Magnesium Hydroxide (Mom) Oral Liqd Udc PO Q4H PRN Constipation Metoprolol Tartrate 25 mg 12/02/21 15:00 12/06/21 11:23 Metoprolol Tartrate 25 Mg Tab PO 25 mg QDAY KHARI Administration Metoprolol Tartrate 2.5 mg 12/06/21 11:11 Metoprolol Tartrate 5 Mg/5 Ml Inj IV Q6HR PRN Tachycardia Morphine Sulfate 2 mg 12/02/21 04:37 12/04/21 10:10 Morphine 2 Mg/1 Ml Inj IV 2 mg Q4H PRN Administration Pain, Moderate (4-6) Morphine Sulfate 4 mg 12/02/21 04:37 Morphine 4 Mg/1 Ml Inj IV Q4H PRN Pain , Severe (7-10) Multi-Ingred Cream/Lotion/Oil/Oint 1 applic 12/02/21 17:32 Mineral Oil/Petrolatum, White Ophth Oint 3.5 Gm OU Q4HR PRN Dry Eye(s) Ondansetron HCl 4 mg 12/02/21 04:37 Ondansetron 4 Mg/2 Ml Inj IV Q8H PRN Nausea And Vomiting Pravastatin Sodium 80 mg 12/02/21 22:00 12/05/21 21:10 Pravastatin 80 Mg Tab PO 80 mg QHS KHARI Administration Senna/Docusate Sodium 1 tab 12/02/21 22:00 12/06/21 11:23 Sennosides/Docusate Sodium 8.6/50 Mg Tab FEEDTUBE 1 tab BID KHARI Administration Sodium Chloride 10 ml 12/02/21 10:00 12/06/21 11:23 Sodium Chloride 0.9% 10 Ml Flush Syringe IV 10 ml BID KHARI Administration Sodium Chloride 10 ml 12/02/21 04:37 Sodium Chloride 0.9% 10 Ml Flush Syringe IV PRN PRN LINE FLUSH
[2021-12-06] MEDS: CEFEPIME/NS 1 GM/100 ML 1 GM/100 ML BAG IV SCH (17:38)
--- NOTE | 2021-12-06 20:26 | Progress Note ---
Assessment and Plan Assessment: Sepsis Pneumonia Acute respiratory failure Intubated and mechanically ventilated Cardiomyopathy LVEF 30-35% this admission LVEF > 55% 03/2019 Nuclear stress test 12/2018 showing normal perfusion NSTEMI Max troponin 2.6 Paroxysmal atrial fibrillation Acute anemia Hb 12.7 --> 8.9 Essential hypertension Type II DM Peripheral vascular disease Right AKA Acute renal failure HD initiated Dec 06 Dementia Recommendations: Conservative cardiac management given multiple comorbidities Monitor CBC while on aspirin and plavix Subjective Date of service: 12/06/21 Principal diagnosis: Respiratory failure Interval history: Patient continues to be intubated and sedated. No events on tele overnight. Objective Vital Signs Temp Pulse Pulse Resp BP Pulse Ox Pulse Ox 12/06/21 20:00 99.9 F H 12/06/21 18:58 106 H 126/60 97 12/06/21 18:00 105 H 127/61 97 12/06/21 17:35 98.4 F 110 H 20 137/66 97 12/06/21 17:30 101 H 137/66 98 12/06/21 17:15 104 H 134/64 12/06/21 17:00 114 H 132/66 98 12/06/21 16:45 106 H 142/63 12/06/21 16:30 99 H 139/59 97 12/06/21 16:15 101 H 134/67 12/06/21 16:00 98.4 F 100 H 103 H 18 127/61 98 12/06/21 15:45 99 H 110/57 12/06/21 15:30 101 H 102/48 97 12/06/21 15:15 98.8 F 100 H 20 102/46 97 12/06/21 15:00 97 H 99/48 96 12/06/21 14:30 98 H 100/47 96 12/06/21 14:00 100 H 106/56 96 12/06/21 13:30 99 H 100/48 96 12/06/21 13:00 97 H 100/48 96 12/06/21 12:30 101 H 102/52 95 12/06/21 12:00 98.8 F 107 H 107 H 18 111/58 96 12/06/21 11:57 106 H 111/58 94 12/06/21 11:30 115 H 120/60 94 12/06/21 11:23 118 H 123/57 12/06/21 11:00 112 H 121/61 94 12/06/21 10:30 113 H 122/55 93 12/06/21 10:00 111 H 120/58 94 12/06/21 09:30 114 H 116/59 93 12/06/21 09:00 111 H 119/57 93 12/06/21 08:30 115 H 117/61 93 12/06/21 08:00 99.2 F 109 H 115 H 18 114/55 93 12/06/21 07:54 110 H 114/57 96 12/06/21 07:30 104 H 102/50 97 12/06/21 07:00 113 H 111/54 96 12/06/21 06:30 115 H 101/48 96 12/06/21 06:01 113 H 112/56 94 12/06/21 06:00 114 H 112/56 94 12/06/21 05:30 116 H 118/59 92 12/06/21 05:00 119 H 132/64 95 12/06/21 04:30 123 H 119/63 94 12/06/21 04:00 122 H 108 H 18 131/66 95 12/06/21 03:30 124 H 127/59 95 12/06/21 03:22 99.8 F H 12/06/21 03:00 121 H 124/67 95 12/06/21 02:30 123 H 121/62 95 12/06/21 02:00 122 H 123/54 94 12/06/21 01:30 126 H 122/64 94 12/06/21 01:00 122 H 124/62 93 12/06/21 00:51 121 H 122/62 92 12/06/21 00:30 121 H 142/64 91 12/06/21 00:01 125 H 129/64 92 12/06/21 00:00 99.2 F 122 H 108 H 18 129/64 92 12/05/21 23:30 120 H 126/55 92 12/05/21 23:00 119 H 130/61 92 12/05/21 22:30 172 H 113/60 92 12/05/21 22:00 111 H 125/63 94 12/05/21 21:30 112 H 126/63 95 12/05/21 21:00 109 H 124/62 93 12/05/21 20:53 114 H 121/58 94 12/05/21 20:30 110 H 125/61 96 - Physical Examination General: Cachectic, Other (Sedated, intubated on the vent) HEENT: Positive: Other (Pupils nonreactive) Neck: Positive: neck supple Cardiac: Positive: Tachycardia Lungs: Positive: Ventilated Respirations Neuro: Positive: Other (Sedated, intubated, on the vent) Abdomen: Positive: Soft Skin: Positive: Clear Extremities: Absent: edema - Labs and Meds CBC 12/06/21 Range/Units 04:35 WBC 11.8 H (4.5-11.0) K/mm3 RBC 2.99 L (3.65-5.03) M/mm3 Hgb 8.9 L (10.1-14.3) gm/dl Hct 26.1 L (30.3-42.9) % Plt Count 199 (140-440) K/mm3 Comprehensive Metabolic Panel 12/06/21 Range/Units 04:35 Sodium 137 (137-145) mmol/L Potassium 4.1 (3.6-5.0) mmol/L Chloride 95.0 L (98-107) mmol/L Carbon Dioxide 27 (22-30) mmol/L BUN 59 H (7-17) mg/dL Creatinine 6.3 H (0.6-1.2) mg/dL Glucose 244 H (65-100) mg/dL Calcium 9.3 D (8.4-10.2) mg/dL - Allied health notes Allied health notes reviewed: RT
[2021-12-06] MEDS: QUEtiapine 25 MG TAB PO SCH (21:38)
[2021-12-06] MEDS ORDERED: INSULIN GLARGINE 100 UNITS/ML SUB-Q SCH (22:00)
[2021-12-06] MEDS: PRAVASTATIN 80 MG TAB PO SCH (23:12)
[2021-12-07 05:07] LABS: Hemoglobin 8.8 gm/dl (10.1-14.3)
[2021-12-07 05:23] LABS: Calcium 9.2 mg/dL (8.4-10.2)
[2021-12-07 05:35] LABS: ABG Base Excess 4.1 mmol/L (-2.0-3.0); ABG HCO3 27.1 mmol/L (20.0-26.0); ABG Methemoglobin 0.7 % (0.0-1.5); ABG Oxygen Saturation 96.7 % (95.0-99.0); ABG PH 7.519 pH Units (7.350-7.450); ABG PO2 65.4 mm Hg (80.0-90.0)
[2021-12-07 05:48] LABS: Hematocrit 27.5 % (30.3-42.9); Mean Corpuscular HGB Conc 32 % (30-34); Mean Corpuscular Volume 89 fl (79-97); Platelet Count 194 K/mm3 (140-440); Red Cell Distribution Width 15.8 % (13.2-15.2)
[2021-12-07] MEDS: HEPARIN 5,000 UNIT/1 ML VIAL SUB-Q SCH ×3 (06:10→22:12)
[2021-12-07] MEDS: INSULIN LISPRO 100 UNIT/ML SUB-Q SCH ×2 (06:10→12:33)
--- NOTE | 2021-12-07 08:13 | XRay Report ---
CHEST 1 VIEW 12/07/2021 7:40 AM INDICATION / CLINICAL INFORMATION: follow up respiratory failure. COMPARISON: Previous day. FINDINGS: SUPPORT DEVICES: Unchanged. HEART / MEDIASTINUM: No significant abnormality. LUNGS / PLEURA: Basilar effusions with associated volume loss. Persistent diffuse bilateral opacity w ith mild apical sparing. No significant change. No pneumothorax. ADDITIONAL FINDINGS: No significant additional findings. IMPRESSION: No significant change. Signer Name: Bobby Dominguez MD Signed: 12/07/2021 8:08 AM Workstation Name: [id number]
[2021-12-07] MEDS ORDERED: INSULIN GLARGINE 100 UNITS/ML SUB-Q SCH (08:35)
[2021-12-07] MEDS: CLOPIDOGREL 75 MG TAB PO SCH (09:05)
[2021-12-07] MEDS: SENNOSIDES/DOCUSATE SODIUM 8.6/50 MG TAB FEEDTUBE SCH ×2 (09:05→22:12)
[2021-12-07] MEDS: METOPROLOL TARTRATE 25 MG TAB PO SCH (09:05)
[2021-12-07] MEDS: ASPIRIN 81 MG TAB CHEW PO SCH (09:05)
[2021-12-07] MEDS: FAMOTIDINE 10 MG TAB PO SCH ×2 (09:05→22:12)
[2021-12-07] MEDS: amLODIPine 10 MG TAB PO SCH (09:07)
--- NOTE | 2021-12-07 09:31 | Progress Note ---
Assessment and Plan Assessment: Sepsis Pneumonia Acute respiratory failure Intubated and mechanically ventilated Cardiomyopathy LVEF 30-35% this admission LVEF > 55% 03/2019 Nuclear stress test 12/2018 showing normal perfusion NSTEMI Max troponin 2.6 Not on systemic anticoagulation due to downward trending hemoglobin. Paroxysmal atrial fibrillation Acute anemia Hb 12.7 --> 8.9 --> 8.8 Essential hypertension Type II DM Peripheral vascular disease Status post right AKA Acute renal failure HD initiated Dec 06 Dementia Recommendations: Conservative cardiac management given multiple comorbidities Monitor CBC while on aspirin and plavix Consider palliative care Subjective Date of service: 12/07/21 Principal diagnosis: Respiratory failure Interval history: Patient continues to be intubated, mechanically ventilated and sedated. Telemetry showing sinus tachycardia. RN denies any signs of bleeding. Objective Vital Signs Temp Pulse Pulse Resp BP Pulse Ox Pulse Ox 12/07/21 09:07 112 H 120/60 12/07/21 09:05 112 H 120/60 12/07/21 08:14 113 H 127/58 95 12/07/21 08:00 121 H 119/60 96 12/07/21 07:30 112 H 128/59 96 12/07/21 07:21 99.0 F 12/07/21 07:00 112 H 117/57 98 12/07/21 06:30 111 H 121/65 98 12/07/21 06:00 106 H 108/51 98 12/07/21 05:30 111 H 111/57 98 12/07/21 05:00 113 H 108/54 97 12/07/21 04:35 118 H 120/61 96 12/07/21 04:30 118 H 119/59 96 12/07/21 04:00 120 H 103 H 18 122/64 95 12/07/21 03:46 100.4 F H 12/07/21 03:30 115 H 121/60 97 12/07/21 03:00 117 H 120/60 97 12/07/21 02:30 123 H 125/64 94 12/07/21 02:00 123 H 117/58 94 12/07/21 01:30 121 H 119/62 94 12/07/21 01:00 127 H 118/64 96 12/07/21 00:30 119 H 121/63 97 12/07/21 00:04 108 H 106/53 98 12/07/21 00:00 100.1 F H 110 H 103 H 18 108/53 98 12/06/21 23:30 111 H 112/57 97 12/06/21 23:13 109 H 119/54 97 12/06/21 23:00 119 H 122/63 95 12/06/21 22:30 116 H 123/60 96 12/06/21 22:00 115 H 119/57 96 12/06/21 21:30 116 H 121/54 94 12/06/21 21:00 116 H 125/64 95 12/06/21 20:30 120 H 133/59 95 12/06/21 20:00 99.9 F H 110 H 103 H 18 130/61 94 12/06/21 19:30 121 H 131/61 96 12/06/21 19:00 109 H 125/59 97 12/06/21 18:58 106 H 126/60 97 12/06/21 18:30 106 H 126/59 96 12/06/21 18:00 105 H 127/61 97 12/06/21 17:35 98.4 F 110 H 20 137/66 97 12/06/21 17:30 101 H 137/66 98 12/06/21 17:15 104 H 134/64 12/06/21 17:00 114 H 132/66 98 12/06/21 16:45 106 H 142/63 12/06/21 16:30 99 H 139/59 97 12/06/21 16:15 101 H 134/67 12/06/21 16:00 98.4 F 100 H 103 H 18 127/61 98 12/06/21 15:45 99 H 110/57 12/06/21 15:30 101 H 102/48 97 12/06/21 15:15 98.8 F 100 H 20 102/46 97 12/06/21 15:00 97 H 99/48 96 12/06/21 14:30 98 H 100/47 96 12/06/21 14:00 100 H 106/56 96 12/06/21 13:30 99 H 100/48 96 12/06/21 13:00 97 H 100/48 96 12/06/21 12:30 101 H 102/52 95 12/06/21 12:00 98.8 F 107 H 107 H 18 111/58 96 12/06/21 11:57 106 H 111/58 94 12/06/21 11:30 115 H 120/60 94 12/06/21 11:23 118 H 123/57 12/06/21 11:00 112 H 121/61 94 12/06/21 10:30 113 H 122/55 93 12/06/21 10:00 111 H 120/58 94 - Physical Examination General: Cachectic, Other (Sedated, intubated on the vent) HEENT: Positive: Other (Pupils nonreactive) Neck: Positive: neck supple Cardiac: Positive: Tachycardia Lungs: Positive: Ventilated Respirations Neuro: Positive: Other (Sedated, intubated, on the vent) Abdomen: Positive: Soft Skin: Positive: Clear Extremities: Absent: edema - Labs and Meds CBC 12/07/21 Range/Units 04:00 WBC 8.7 (4.5-11.0) K/mm3 RBC 3.10 L (3.65-5.03) M/mm3 Hgb 8.8 L (10.1-14.3) gm/dl Hct 27.5 L (30.3-42.9) % Plt Count 194 (140-440) K/mm3 Comprehensive Metabolic Panel 12/07/21 Range/Units 04:00 Sodium 141 (137-145) mmol/L Potassium 3.9 (3.6-5.0) mmol/L Chloride 98.9 (98-107) mmol/L Carbon Dioxide 26 (22-30) mmol/L BUN 50 H (7-17) mg/dL Creatinine 5.5 H (0.6-1.2) mg/dL Glucose 248 H (65-100) mg/dL Calcium 9.2 (8.4-10.2) mg/dL - Allied health notes Allied health notes reviewed: RT
--- NOTE | 2021-12-07 13:13 | Progress Note ---
Assessment and Plan Acute Hypoxemic Respiratory Failure of MVS Pulmonary Edema Vs Pneumonia - Code met on 12/02 was intubated Severe Sepsis Pneumonia Leukocytosis-improved Lactic Acidosis/Metabolic acidosis Acute Kidney Injury(RAYNE) most likely ATN Hypokalemia Acute Metabolic Acidosis Hypertension Elevated BNP Elevated troponin Elevated D-dimer Type 2 Diabetes mellitus Adjust minute ventilation for better gas-exchange. Decrease tidal volume to 350ml Continue Low dose Seroquel at night, while monitoring QTc to help wean off Proprofol Daily assessment for readiness to wean, Daily SAT and SBT Discontinue Palacio catheter, bladder scan q shift and straight cath as indicated and per protocol - continue to titrate supplemental oxygen SpO2 keep 89-92% - VAP bundle addressed, aspiration HOB>30 - Continue with lung protective strategies -continue with bronchodilators with pulmonary hygiene per RT -CXR,ABG as clinically inidcated - continue accuchecks with glycemic control per SSI (While critically ill target blood glucose of 140-180 mg/dL; avoid hypoglycemia) - sedation for target RASS 0 to -1 - continue to avoid nephrotoxins, renally dose all medications -continue to avoid benzodiazepines , reduce the possibility of delirium - continue prn analgesia per CPOT score >3 - Maintenance of sleep-wake cycle, avoid delirium - continue with enteric nutritional support - NGT in place, tolerating enteric nutritional support -Bowel regime to aovid narcotic induced constipation - Continue with Stress ulcer and VTE prophylaxis - PT/OT/ROM exercise - Mobility, off loading, and frequent turning per facility protocol to prevent pressure ulcers - continue with monitoring of hemodynamics closely -Supportive transfusions as clinically indicated to keep HgB >7g/dL - continue other care per attending / other consultants CONDITION: CRITICAL PROGNOSIS: GUARDED CODE STATUS: FULL CODE The high probability of a clinically significant, sudden or life-threatening deterioration of the [respiratory, cardiovascular, renal & neurologic] system(s) required my full and direct attention, intervention and personal management. The aggregate critical care time was [33] minutes without overlap. Time includes spent on; [x] Data Review and interpretation [x] Patient assessment and monitoring of vital signs [x] Documentation [x] Medication orders and management Subjective Date of service: 12/07/21 Principal diagnosis: Respiratory failure Interval history: This is a 86-year-old AA female with known past medical history of hypertension, diabetes mellitus, PVD, and right AKA initially admitted to the floor for sepsis, ARF, and pneumonia versus pulmonary edema. Patient was a code met on 12/02 due to acute hypoxemic respiratory failure requiring intubation and ventilatory support. Follow up: For acute hypoxemic resp failure on MVS; RAYNE ; Acute on chronic metabolic encephalopathy; RAYNE Seen and examined. Vitals,labs, medications, chart and imaging reviewed. spontanesou eye opening today - on Propofol at 5mcg Palacio in place, remains anuric Remains on MVS: AC-PRVC 14/400/+8/50% ABG 7.5/34/65/27 Discussed with respiratory and nursing care team Tolerating HD Objective - Exam Narrative Exam: General appearance: Present: no acute distress, other (Intubated and Sedated) - EENT Eyes: Present: PERRL Left mastectomy scar RIJ Trialysis catheter NGT in nares - Respiratory Respiratory effort: normal Respiratory: bilateral: diminished - Cardiovascular Rhythm: regular Heart Sounds: Present: S1 & S2 - Extremities Extremities: no ischemia, pulses intact, pulses symmetrical s/p right AKA Extremity abnormal: edema - Peripheral Assessment Generalized Edema Type: Non-pitting Edema Degree: 1+ Capillary Refill: < 3 seconds Skin Temperature: Warm Peripheral Pulses: within normal limits - Abdominal General gastrointestinal: soft, non-distended, normal bowel sounds Palacio in place - Integumentary Integumentary: Present: warm, dry - Psychiatric Psychiatric: other (Intubated and Sedated) - Neurologic Neurologic: other (Intubated and Sedated) Vital Signs - 12hr 12/07/21 12/07/21 12/07/21 01:30 02:00 02:30 Temperature Pulse Rate 121 H 123 H 123 H Pulse Rate [ From Monitor] Respiratory Rate Blood Pressure 119/62 117/58 125/64 O2 Sat by Pulse 94 94 94 Oximetry 12/07/21 12/07/21 12/07/21 03:00 03:30 03:46 Temperature 100.4 F H Pulse Rate 117 H 115 H Pulse Rate [ From Monitor] Respiratory Rate Blood Pressure 120/60 121/60 O2 Sat by Pulse 97 97 Oximetry 12/07/21 12/07/21 12/07/21 04:00 04:30 04:35 Temperature Pulse Rate 120 H 118 H 118 H Pulse Rate [ 103 H From Monitor] Respiratory 18 Rate Blood Pressure 122/64 119/59 120/61 O2 Sat by Pulse 95 96 96 Oximetry 12/07/21 12/07/21 12/07/21 05:00 05:30 06:00 Temperature Pulse Rate 113 H 111 H 106 H Pulse Rate [ From Monitor] Respiratory Rate Blood Pressure 108/54 111/57 108/51 O2 Sat by Pulse 97 98 98 Oximetry 12/07/21 12/07/21 12/07/21 06:30 07:00 07:21 Temperature 99.0 F Pulse Rate 111 H 112 H Pulse Rate [ From Monitor] Respiratory Rate Blood Pressure 121/65 117/57 O2 Sat by Pulse 98 98 Oximetry 12/07/21 12/07/21 12/07/21 07:30 08:00 08:14 Temperature Pulse Rate 112 H 121 H 113 H Pulse Rate [ 103 H From Monitor] Respiratory 18 Rate Blood Pressure 128/59 119/60 127/58 O2 Sat by Pulse 96 97 95 Oximetry 12/07/21 12/07/21 12/07/21 08:30 09:00 09:05 Temperature Pulse Rate 118 H 114 H 112 H Pulse Rate [ From Monitor] Respiratory Rate Blood Pressure 115/71 117/62 120/60 O2 Sat by Pulse 92 97 Oximetry 12/07/21 12/07/21 12/07/21 09:07 09:30 10:00 Temperature Pulse Rate 112 H 109 H 102 H Pulse Rate [ From Monitor] Respiratory Rate Blood Pressure 120/60 113/52 122/60 O2 Sat by Pulse 98 96 Oximetry 12/07/21 12/07/21 12/07/21 10:30 11:00 11:22 Temperature 98.7 F Pulse Rate 102 H 105 H Pulse Rate [ From Monitor] Respiratory Rate Blood Pressure 118/56 117/59 O2 Sat by Pulse 97 96 Oximetry 12/07/21 12/07/21 12/07/21 11:30 11:35 12:00 Temperature Pulse Rate 105 H 110 H 105 H Pulse Rate [ From Monitor] Respiratory Rate Blood Pressure 122/62 119/58 117/60 O2 Sat by Pulse 96 96 97 Oximetry 12/07/21 12/07/21 12:30 13:00 Temperature Pulse Rate 105 H 107 H Pulse Rate [ From Monitor] Respiratory Rate Blood Pressure 125/61 119/63 O2 Sat by Pulse 96 96 Oximetry CBC and BMP: 12/07/21 04:00 12/07/21 04:00 ABG, PT/INR, D-dimer: ABG ABG pH 7.519 pH Units (7.350-7.450) H 12/07/21 04:55 ABG pCO2 34.0 mm Hg 12/07/21 04:55 ABG pO2 65.4 mm Hg (80.0-90.0) L 12/07/21 04:55 ABG O2 Saturation 96.7 % (95.0-99.0) 12/07/21 04:55 PT/INR, D-dimer PT 15.9 Sec. (12.2-14.9) H 12/02/21 01:24 INR 1.15 (0.87-1.13) H 12/02/21 01:24 D-Dimer 1461.68 ng/mlDDU (0-234) H 12/02/21 04:18 Abnormal lab findings: Abnormal Labs 12/02/21 12/02/21 12/02/21 00:52 00:52 01:24 WBC 15.4 H RBC Hgb Hct MCHC RDW 15.8 H Lymph % (Auto) 6.3 L [place] % (Auto) 11.7 H Lymph # (Auto) 1.0 L [place] # (Auto) 1.8 H Seg Neutrophils % 81.8 H Lymphocytes % (Manual) Seg Neutrophils # 12.6 H Lymphocytes # (Manual) PT INR D-Dimer ABG pH ABG pO2 ABG HCO3 ABG O2 Saturation ABG Base Excess ABG Hemoglobin VBG pH Oxyhemoglobin Sodium Potassium Chloride Carbon Dioxide BUN Creatinine Glucose POC Glucose Lactic Acid Calcium Phosphorus AST ALT Lactate Dehydrogenase Total Creatine Kinase CK-MB (CK-2) CK-MB (CK-2) Rel Index Troponin T C-Reactive Protein NT-Pro-B Natriuret Pep Triglycerides HDL Cholesterol Urine WBC (Auto) 27.0 H Urine Creatinine 24.4 H Urine Total Protein 111 H 12/02/21 12/02/21 12/02/21 01:24 01:24 01:24 WBC RBC Hgb Hct MCHC RDW Lymph % (Auto) [place] % (Auto) Lymph # (Auto) [place] # (Auto) Seg Neutrophils % Lymphocytes % (Manual) Seg Neutrophils # Lymphocytes # (Manual) PT 15.9 H INR 1.15 H D-Dimer ABG pH ABG pO2 ABG HCO3 ABG O2 Saturation ABG Base Excess ABG Hemoglobin VBG pH Oxyhemoglobin Sodium Potassium 3.5 L Chloride Carbon Dioxide 4 L* BUN 43 H Creatinine 5.1 H Glucose 239 H POC Glucose Lactic Acid 15.70 H* Calcium Phosphorus AST 86 H ALT 69 H Lactate Dehydrogenase Total Creatine Kinase 254 H CK-MB (CK-2) 20.2 H CK-MB (CK-2) Rel Index 7.9 H Troponin T C-Reactive Protein NT-Pro-B Natriuret Pep Triglycerides HDL Cholesterol Urine WBC (Auto) Urine Creatinine Urine Total Protein 12/02/21 12/02/21 12/02/21 01:24 01:24 04:18 WBC RBC Hgb Hct MCHC RDW Lymph % (Auto) [place] % (Auto) Lymph # (Auto) [place] # (Auto) Seg Neutrophils % Lymphocytes % (Manual) Seg Neutrophils # Lymphocytes # (Manual) PT INR D-Dimer 1461.68 H ABG pH ABG pO2 ABG HCO3 ABG O2 Saturation ABG Base Excess ABG Hemoglobin VBG pH 7.167 L* Oxyhemoglobin Sodium Potassium Chloride Carbon Dioxide BUN Creatinine Glucose POC Glucose Lactic Acid Calcium Phosphorus AST ALT Lactate Dehydrogenase Total Creatine Kinase CK-MB (CK-2) CK-MB (CK-2) Rel Index Troponin T 2.600 H* C-Reactive Protein NT-Pro-B Natriuret Pep > 3500 H Triglycerides HDL Cholesterol 74 H Urine WBC (Auto) Urine Creatinine Urine Total Protein 12/02/21 12/02/21 12/02/21 04:18 04:18 10:47 WBC RBC Hgb Hct MCHC RDW Lymph % (Auto) [place] % (Auto) Lymph # (Auto) [place] # (Auto) Seg Neutrophils % Lymphocytes % (Manual) Seg Neutrophils # Lymphocytes # (Manual) PT INR D-Dimer ABG pH ABG pO2 ABG HCO3 ABG O2 Saturation ABG Base Excess ABG Hemoglobin VBG pH Oxyhemoglobin Sodium Potassium Chloride Carbon Dioxide 7 L* BUN 51 H Creatinine 5.9 H Glucose 255 H 224 H POC Glucose Lactic Acid 15.40 H* Calcium Phosphorus AST ALT Lactate Dehydrogenase 958 H Total Creatine Kinase CK-MB (CK-2) CK-MB (CK-2) Rel Index Troponin T C-Reactive Protein 6.60 H NT-Pro-B Natriuret Pep Triglycerides HDL Cholesterol Urine WBC (Auto) Urine Creatinine Urine Total Protein 12/02/21 12/02/21 12/02/21 10:53 13:51 13:51 WBC RBC Hgb Hct MCHC RDW Lymph % (Auto) [place] % (Auto) Lymph # (Auto) [place] # (Auto) Seg Neutrophils % Lymphocytes % (Manual) Seg Neutrophils # Lymphocytes # (Manual) PT INR D-Dimer ABG pH ABG pO2 ABG HCO3 ABG O2 Saturation ABG Base Excess ABG Hemoglobin VBG pH Oxyhemoglobin Sodium Potassium Chloride Carbon Dioxide BUN Creatinine Glucose POC Glucose 194 H Lactic Acid 11.70 H* Calcium Phosphorus AST ALT Lactate Dehydrogenase Total Creatine Kinase CK-MB (CK-2) CK-MB (CK-2) Rel Index Troponin T 2.500 H* C-Reactive Protein NT-Pro-B Natriuret Pep Triglycerides HDL Cholesterol Urine WBC (Auto) Urine Creatinine Urine Total Protein 12/02/21 12/02/21 12/02/21 20:31 22:56 22:56 WBC RBC Hgb Hct MCHC RDW Lymph % (Auto) [place] % (Auto) Lymph # (Auto) [place] # (Auto) Seg Neutrophils % Lymphocytes % (Manual) Seg Neutrophils # Lymphocytes # (Manual) PT INR D-Dimer ABG pH ABG pO2 156.2 H ABG HCO3 15.4 L ABG O2 Saturation ABG Base Excess -8.7 L ABG Hemoglobin VBG pH Oxyhemoglobin Sodium 147 H Potassium 3.4 L Chloride Carbon Dioxide 18 L D BUN 59 H Creatinine 6.2 H Glucose 150 H POC Glucose Lactic Acid 6.10 H* Calcium 8.3 L Phosphorus AST ALT Lactate Dehydrogenase Total Creatine Kinase CK-MB (CK-2) CK-MB (CK-2) Rel Index Troponin T C-Reactive Protein NT-Pro-B Natriuret Pep Triglycerides HDL Cholesterol Urine WBC (Auto) Urine Creatinine Urine Total Protein 12/03/21 12/03/21 12/03/21 00:25 00:42 04:00 WBC RBC Hgb Hct MCHC RDW 15.4 H Lymph % (Auto) [place] % (Auto) Lymph # (Auto) [place] # (Auto) Seg Neutrophils % Lymphocytes % (Manual) 7.0 L Seg Neutrophils # Lymphocytes # (Manual) 0.4 L PT INR D-Dimer ABG pH ABG pO2 ABG HCO3 ABG O2 Saturation ABG Base Excess ABG Hemoglobin VBG pH Oxyhemoglobin Sodium Potassium Chloride Carbon Dioxide BUN Creatinine Glucose POC Glucose 150 H Lactic Acid 5.80 H* Calcium Phosphorus AST ALT Lactate Dehydrogenase Total Creatine Kinase CK-MB (CK-2) CK-MB (CK-2) Rel Index Troponin T C-Reactive Protein NT-Pro-B Natriuret Pep Triglycerides HDL Cholesterol Urine WBC (Auto) Urine Creatinine Urine Total Protein 12/03/21 12/03/21 12/03/21 04:00 06:14 08:35 WBC RBC Hgb Hct MCHC RDW Lymph % (Auto) [place] % (Auto) Lymph # (Auto) [place] # (Auto) Seg Neutrophils % Lymphocytes % (Manual) Seg Neutrophils # Lymphocytes # (Manual) PT INR D-Dimer ABG pH 7.533 H ABG pO2 120.9 H ABG HCO3 ABG O2 Saturation ABG Base Excess ABG Hemoglobin 11.9 L VBG pH Oxyhemoglobin Sodium Potassium 3.5 L Chloride Carbon Dioxide 21 L BUN 63 H Creatinine 6.3 H Glucose 158 H POC Glucose 145 H Lactic Acid Calcium 7.9 L Phosphorus AST ALT Lactate Dehydrogenase Total Creatine Kinase CK-MB (CK-2) CK-MB (CK-2) Rel Index Troponin T C-Reactive Protein NT-Pro-B Natriuret Pep Triglycerides HDL Cholesterol Urine WBC (Auto) Urine Creatinine Urine Total Protein 12/03/21 12/03/21 12/03/21 12:35 13:48 15:51 WBC RBC Hgb Hct MCHC RDW Lymph % (Auto) [place] % (Auto) Lymph # (Auto) [place] # (Auto) Seg Neutrophils % Lymphocytes % (Manual) Seg Neutrophils # Lymphocytes # (Manual) PT INR D-Dimer ABG pH ABG pO2 ABG HCO3 ABG O2 Saturation ABG Base Excess ABG Hemoglobin VBG pH Oxyhemoglobin Sodium Potassium Chloride Carbon Dioxide BUN Creatinine Glucose POC Glucose 151 H 168 H Lactic Acid Calcium Phosphorus AST ALT Lactate Dehydrogenase Total Creatine Kinase CK-MB (CK-2) CK-MB (CK-2) Rel Index Troponin T C-Reactive Protein NT-Pro-B Natriuret Pep Triglycerides HDL Cholesterol Urine WBC (Auto) 9.0 H Urine Creatinine Urine Total Protein 12/03/21 12/03/21 12/03/21 16:20 16:35 23:21 WBC RBC Hgb Hct MCHC RDW Lymph % (Auto) [place] % (Auto) Lymph # (Auto) [place] # (Auto) Seg Neutrophils % Lymphocytes % (Manual) Seg Neutrophils # Lymphocytes # (Manual) PT INR D-Dimer ABG pH ABG pO2 ABG HCO3 ABG O2 Saturation ABG Base Excess ABG Hemoglobin VBG pH Oxyhemoglobin Sodium Potassium Chloride 92.3 L Carbon Dioxide BUN 67 H Creatinine 7.1 H Glucose 160 H POC Glucose 158 H 161 H Lactic Acid Calcium 7.3 L Phosphorus AST ALT Lactate Dehydrogenase Total Creatine Kinase CK-MB (CK-2) CK-MB (CK-2) Rel Index Troponin T C-Reactive Protein NT-Pro-B Natriuret Pep Triglycerides HDL Cholesterol Urine WBC (Auto) Urine Creatinine Urine Total Protein 12/04/21 12/04/21 12/04/21 04:18 04:18 04:18 WBC RBC 3.29 L Hgb 10.0 L Hct 28.4 L D MCHC 35 H RDW 15.4 H Lymph % (Auto) [place] % (Auto) Lymph # (Auto) [place] # (Auto) Seg Neutrophils % Lymphocytes % (Manual) Seg Neutrophils # Lymphocytes # (Manual) PT INR D-Dimer ABG pH ABG pO2 ABG HCO3 ABG O2 Saturation ABG Base Excess ABG Hemoglobin VBG pH Oxyhemoglobin Sodium Potassium 3.5 L Chloride 91.5 L Carbon Dioxide 33 H D BUN 74 H Creatinine 7.5 H Glucose 155 H POC Glucose Lactic Acid 4.60 H* Calcium 7.2 L Phosphorus 4.60 H AST ALT Lactate Dehydrogenase Total Creatine Kinase CK-MB (CK-2) CK-MB (CK-2) Rel Index Troponin T C-Reactive Protein NT-Pro-B Natriuret Pep Triglycerides HDL Cholesterol Urine WBC (Auto) Urine Creatinine Urine Total Protein 12/04/21 12/04/21 12/04/21 10:29 11:08 15:46 WBC RBC Hgb Hct MCHC RDW Lymph % (Auto) [place] % (Auto) Lymph # (Auto) [place] # (Auto) Seg Neutrophils % Lymphocytes % (Manual) Seg Neutrophils # Lymphocytes # (Manual) PT INR D-Dimer ABG pH 7.504 H ABG pO2 40.8 L ABG HCO3 30.1 H ABG O2 Saturation 75.1 L ABG Base Excess 6.6 H ABG Hemoglobin 10.2 L VBG pH Oxyhemoglobin 73.7 L Sodium Potassium Chloride Carbon Dioxide BUN Creatinine Glucose POC Glucose 146 H 155 H Lactic Acid Calcium Phosphorus AST ALT Lactate Dehydrogenase Total Creatine Kinase CK-MB (CK-2) CK-MB (CK-2) Rel Index Troponin T C-Reactive Protein NT-Pro-B Natriuret Pep Triglycerides HDL Cholesterol Urine WBC (Auto) Urine Creatinine Urine Total Protein 12/04/21 12/05/21 12/05/21 23:30 04:22 04:22 WBC 12.7 H RBC 3.33 L Hgb 9.6 L Hct 29.3 L MCHC RDW 15.5 H Lymph % (Auto) [place] % (Auto) Lymph # (Auto) [place] # (Auto) Seg Neutrophils % Lymphocytes % (Manual) Seg Neutrophils # Lymphocytes # (Manual) PT INR D-Dimer ABG pH ABG pO2 ABG HCO3 ABG O2 Saturation ABG Base Excess ABG Hemoglobin VBG pH Oxyhemoglobin Sodium Potassium Chloride 90.3 L Carbon Dioxide BUN 89 H Creatinine 8.8 H Glucose 216 H POC Glucose 183 H Lactic Acid Calcium 8.0 L Phosphorus 4.60 H AST ALT Lactate Dehydrogenase Total Creatine Kinase CK-MB (CK-2) CK-MB (CK-2) Rel Index Troponin T C-Reactive Protein NT-Pro-B Natriuret Pep Triglycerides 280 H HDL Cholesterol Urine WBC (Auto) Urine Creatinine Urine Total Protein 12/05/21 12/05/21 12/05/21 10:15 10:54 11:57 WBC RBC Hgb Hct MCHC RDW Lymph % (Auto) [place] % (Auto) Lymph # (Auto) [place] # (Auto) Seg Neutrophils % Lymphocytes % (Manual) Seg Neutrophils # Lymphocytes # (Manual) PT INR D-Dimer ABG pH 7.518 H ABG pO2 43.4 L ABG HCO3 28.8 H ABG O2 Saturation 78.6 L ABG Base Excess 5.6 H ABG Hemoglobin 8.4 L VBG pH Oxyhemoglobin 77.1 L Sodium Potassium Chloride Carbon Dioxide BUN Creatinine Glucose POC Glucose 187 H 196 H Lactic Acid Calcium Phosphorus AST ALT Lactate Dehydrogenase Total Creatine Kinase CK-MB (CK-2) CK-MB (CK-2) Rel Index Troponin T C-Reactive Protein NT-Pro-B Natriuret Pep Triglycerides HDL Cholesterol Urine WBC (Auto) Urine Creatinine Urine Total Protein 12/05/21 12/05/21 12/05/21 16:34 18:02 23:39 WBC RBC Hgb Hct MCHC RDW Lymph % (Auto) [place] % (Auto) Lymph # (Auto) [place] # (Auto) Seg Neutrophils % Lymphocytes % (Manual) Seg Neutrophils # Lymphocytes # (Manual) PT INR D-Dimer ABG pH ABG pO2 ABG HCO3 ABG O2 Saturation ABG Base Excess ABG Hemoglobin VBG pH Oxyhemoglobin Sodium Potassium Chloride Carbon Dioxide BUN Creatinine Glucose POC Glucose 178 H 167 H 235 H Lactic Acid Calcium Phosphorus AST ALT Lactate Dehydrogenase Total Creatine Kinase CK-MB (CK-2) CK-MB (CK-2) Rel Index Troponin T C-Reactive Protein NT-Pro-B Natriuret Pep Triglycerides HDL Cholesterol Urine WBC (Auto) Urine Creatinine Urine Total Protein 12/06/21 12/06/21 12/06/21 04:35 04:35 05:37 WBC 11.8 H RBC 2.99 L Hgb 8.9 L Hct 26.1 L MCHC RDW Lymph % (Auto) [place] % (Auto) Lymph # (Auto) [place] # (Auto) Seg Neutrophils % Lymphocytes % (Manual) Seg Neutrophils # Lymphocytes # (Manual) PT INR D-Dimer ABG pH ABG pO2 ABG HCO3 ABG O2 Saturation ABG Base Excess ABG Hemoglobin VBG pH Oxyhemoglobin Sodium Potassium Chloride 95.0 L Carbon Dioxide BUN 59 H Creatinine 6.3 H Glucose 244 H POC Glucose 251 H Lactic Acid Calcium Phosphorus AST ALT Lactate Dehydrogenase Total Creatine Kinase CK-MB (CK-2) CK-MB (CK-2) Rel Index Troponin T C-Reactive Protein NT-Pro-B Natriuret Pep Triglycerides HDL Cholesterol Urine WBC (Auto) Urine Creatinine Urine Total Protein 12/06/21 12/06/21 12/06/21 06:05 11:45 17:19 WBC RBC Hgb Hct MCHC RDW Lymph % (Auto) [place] % (Auto) Lymph # (Auto) [place] # (Auto) Seg Neutrophils % Lymphocytes % (Manual) Seg Neutrophils # Lymphocytes # (Manual) PT INR D-Dimer ABG pH 7.555 H ABG pO2 95.3 H ABG HCO3 27.3 H ABG O2 Saturation ABG Base Excess 4.9 H ABG Hemoglobin 9.0 L VBG pH Oxyhemoglobin Sodium Potassium Chloride Carbon Dioxide BUN Creatinine Glucose POC Glucose 249 H 187 H Lactic Acid Calcium Phosphorus AST ALT Lactate Dehydrogenase Total Creatine Kinase CK-MB (CK-2) CK-MB (CK-2) Rel Index Troponin T C-Reactive Protein NT-Pro-B Natriuret Pep Triglycerides HDL Cholesterol Urine WBC (Auto) Urine Creatinine Urine Total Protein 12/06/21 12/07/21 12/07/21 23:24 04:00 04:00 WBC RBC 3.10 L Hgb 8.8 L Hct 27.5 L MCHC RDW 15.8 H Lymph % (Auto) [place] % (Auto) Lymph # (Auto) [place] # (Auto) Seg Neutrophils % Lymphocytes % (Manual) Seg Neutrophils # Lymphocytes # (Manual) PT INR D-Dimer ABG pH ABG pO2 ABG HCO3 ABG O2 Saturation ABG Base Excess ABG Hemoglobin VBG pH Oxyhemoglobin Sodium Potassium Chloride Carbon Dioxide BUN 50 H Creatinine 5.5 H Glucose 248 H POC Glucose 233 H Lactic Acid Calcium Phosphorus AST ALT Lactate Dehydrogenase Total Creatine Kinase CK-MB (CK-2) CK-MB (CK-2) Rel Index Troponin T C-Reactive Protein NT-Pro-B Natriuret Pep Triglycerides HDL Cholesterol Urine WBC (Auto) Urine Creatinine Urine Total Protein 12/07/21 12/07/21 12/07/21 04:55 05:40 10:49 WBC RBC Hgb Hct MCHC RDW Lymph % (Auto) [place] % (Auto) Lymph # (Auto) [place] # (Auto) Seg Neutrophils % Lymphocytes % (Manual) Seg Neutrophils # Lymphocytes # (Manual) PT INR D-Dimer ABG pH 7.519 H ABG pO2 65.4 L ABG HCO3 27.1 H ABG O2 Saturation ABG Base Excess 4.1 H ABG Hemoglobin 8.3 L VBG pH Oxyhemoglobin 94.9 L Sodium Potassium Chloride Carbon Dioxide BUN Creatinine Glucose POC Glucose 230 H 215 H Lactic Acid Calcium Phosphorus AST ALT Lactate Dehydrogenase Total Creatine Kinase CK-MB (CK-2) CK-MB (CK-2) Rel Index Troponin T C-Reactive Protein NT-Pro-B Natriuret Pep Triglycerides HDL Cholesterol Urine WBC (Auto) Urine Creatinine Urine Total Protein Chest x-ray: image reviewed (persistent alveolar infiltrates) Allied health notes reviewed: RT
--- NOTE | 2021-12-07 14:02 | Progress Note ---
Assessment and Plan Assessment and plan: This is a 86-year-old AA female with known past medical history of hypertension, diabetes mellitus, PVD, and right AKA initially admitted to the floor for sepsis, ARF, and pneumonia versus pulmonary edema. Patient was a code met on 12/02 due to acute hypoxemic respiratory failure requiring intubation and ventilatory support. Hospital Course to Date: 12/03: Patient remains intubated and sedated. This am ABG noted, continue to wean Fio2 as tolerated. Patient's renal function continue to worsen, patient currently on bcab gtt per Nephrology. Per Nephro plan for possible discussion with family, patient might require HD. Acidosis is improving continue bcarb and IV abx per ID, trend lactic acid. 12/04: Overnight events noted, remains ST in the 110s this am, BP stable. Renal function continue to worsen, per nursing staff patient's POA is leaning towards HD. Plan for possible family meeting to further discuss patient's goal of care. This am ABG noted, most likely venous, SPO2 is 100%, tolerating vent. Continue to wean Fio2 as tolerated. 12/05: Family meeting with grandson today at the bedside. Thorough discussion with the attending in regards to patient's current status/condition and overall prognosis. Patient's grandson voiced understanding of the info given, stated that he knows his grandma is older but he would like to give her a fighting chance and want everything done including hemodialysis. Code status was also addressed, patient's POA stated that he would like full resuscitative measures at this time. Patient remains a FULL code. RIJ Vascath inserted, plan for possible HD today per Nephro. 12/06: Patient tolerated first HD treatment yesterday, renal function with some improvement this am. Plan for possible HD again today. Increased agitation overnight, sedation increased, will added low dose Seroquel Qhs. Basal insulin added for hyperglycemia. Continue to wean Fio2 as tolerated per CCM. 12/07: ZANE overnight. Remains on the vent and sedated. Renal function is improving on iHD, still oliguric though. Plan to wean off sedation today or tomorrow if tolerated, possible PST trial in the am. Basal lantus added for hyperglycemia. Assessment and Plan #Acute Hypoxemic Respiratory Failure #Pulmonary Edema Vs #Pneumonia - Code met on 12/02 was intubated - Vent setting:A/C-55%,6,14,400 - This am ABG noted - CCM consulted, appreciate recommendations - Continue IV ABx and Nebs per CCM - VAP bundle addressed - Aspiration precaution HOB above 30 - Daily SBT and SAT trials as tolerated - Daily ABG and CXR - Continue SPO2 monitoring for SPO2 goal above 92% #Severe Sepsis #Pneumonia #Leukocytosis-improved #Lactic Acidosis/Metabolic acidosis - Imaging with bilateral pulmonary opacities - Presented with severe acidosis and leukocytosis - Patient remains aferbile - COVID PCR negative - Blood culture and sputum culture with NGTD - ID is on consult - Continue current IV Abx per ID - Continue to F/U on B.cult - Daily CBC monitor #Acute Kidney Injury(RAYNE) most likely ATN #Hypokalemia - No history of CKD per family - Nephrology on consult, appreciated recommendation - 12/05 VasCath inserted, patient tolerated first HD - Continue HD per Nephro - Strict intake and output - Palacio in place with oliguria - Avoid nephrotoxic medications; Renally dose medications - Monitor and replace electrolytes as needed - Trend BMP #Acute Metabolic Acidosis - Probably due to severe acidosis - Continue sedation for RASS goal of 0 to -1 - Seroquel added Qhs - Avoid benzodiazepine to reduce the possibility of delirium - Prn analgesia for CPOT greater than 3 - Maintenance of sleep-wake cycle #Hypertension #Elevated BNP #Elevated troponin - BNP >2000 ; troponin 2.000 - could also be secondary to renal failure - 12/02 2D Echo EF 30-35% - Cardiology on consult, appreciated recommendations - No diuretic due to kidney function - Home meds resumed - Continue blood pressure monitor per protocol #Elevated D-dimer - COVID PCR negatine - BLE doppler negative - Continue SubQ heparin #Type 2 Diabetes mellitus - Continue SSI Q6hrs - Avoid Hypoglycemia - While critically ill target blood glucose of 140-180 #GI/DVT Prophylaxis - PPI- Pepcid - Continue AC- Heparin SubQ The high probability of a clinically significant, sudden or life threatening deterioration of the [multiple] system(s) required my full and direct attention, intervention and personal management. The aggregate critical care time was [60] minutes. This time is in addition to time spent performing reported procedures but includes the following: [x] Data Review and interpretation [x] Patient assessment and monitoring of vital signs [x] Documentation [x] Medication orders and management Disposition Plan: ICU Total Time Spent with Patient (Minutes): 60 History Interval history: Patient seen and examined at the bedside. Intubated and sedated on low dose propofol this am. ZANE overnight Hospitalist Physical - Constitutional Vitals: Temp Pulse Resp BP Pulse Ox 98.7 F 107 H 18 119/63 96 12/07/21 11:22 12/07/21 13:00 12/07/21 12:00 12/07/21 13:00 12/07/21 13:00 General appearance: Present: no acute distress, other (Intubated and Sedated) - EENT Eyes: Present: PERRL - Respiratory Respiratory effort: normal Respiratory: bilateral: rhonchi - Cardiovascular Rhythm: regular Heart Sounds: Present: S1 & S2 - Extremities Extremities: no ischemia, pulses intact, pulses symmetrical, abnormal (Rt. AKA) Extremity abnormal: edema - Peripheral Assessment Generalized Edema Type: Non-pitting Edema Degree: 2+ Capillary Refill: < 3 seconds Skin Temperature: Warm Peripheral Pulses: within normal limits - Abdominal General gastrointestinal: soft, non-distended, normal bowel sounds - Integumentary Integumentary: Present: warm, dry - Psychiatric Psychiatric: other (Intubated and Sedated) - Neurologic Neurologic: other (Intubated and Sedated) - Allied Health Allied health notes reviewed: nursing HEART Score - HEART Score Troponin: Troponin T 2.500 ng/mL (0.00-0.029) H* 12/02/21 13:51 Results - Labs CBC & Chem 7: 12/07/21 04:00 12/07/21 04:00 Labs: Laboratory Last Values WBC 8.7 K/mm3 (4.5-11.0) 12/07/21 04:00 RBC 3.10 M/mm3 (3.65-5.03) L 12/07/21 04:00 Hgb 8.8 gm/dl (10.1-14.3) L 12/07/21 04:00 Hct 27.5 % (30.3-42.9) L 12/07/21 04:00 MCV 89 fl (79-97) 12/07/21 04:00 MCH 29 pg (28-32) 12/07/21 04:00 MCHC 32 % (30-34) 12/07/21 04:00 RDW 15.8 % (13.2-15.2) H 12/07/21 04:00 Plt Count 194 K/mm3 (140-440) 12/07/21 04:00 Lymph % (Auto) 6.3 % (13.4-35.0) L 12/02/21 01:24 Lane % (Auto) 11.7 % (0.0-7.3) H 12/02/21 01:24 Eos % (Auto) 0.0 % (0.0-4.3) 12/02/21 01:24 Baso % (Auto) 0.2 % (0.0-1.8) 12/02/21 01:24 Lymph # (Auto) 1.0 K/mm3 (1.2-5.4) L 12/02/21 01:24 Lane # (Auto) 1.8 K/mm3 (0.0-0.8) H 12/02/21 01:24 Eos # (Auto) 0.0 K/mm3 (0.0-0.4) 12/02/21 01:24 Baso # (Auto) 0.0 K/mm3 (0.0-0.1) 12/02/21 01:24 Add Manual Diff Complete 12/03/21 04:00 Total Counted 100 12/03/21 04:00 Seg Neutrophils % 81.8 % (40.0-70.0) H 12/02/21 01:24 Seg Neuts % (Manual) 67.0 % (40.0-70.0) 12/03/21 04:00 Band Neutrophils % 18.0 % 12/03/21 04:00 Lymphocytes % (Manual) 7.0 % (13.4-35.0) L 12/03/21 04:00 Reactive Lymphs % (Man) 0 % 12/03/21 04:00 Monocytes % (Manual) 3.0 % (0.0-7.3) 12/03/21 04:00 Eosinophils % (Manual) 0 % (0.0-4.3) 12/03/21 04:00 Basophils % (Manual) 0 % (0.0-1.8) 12/03/21 04:00 Metamyelocytes % 4.0 % 12/03/21 04:00 Myelocytes % 1.0 % 12/03/21 04:00 Promyelocytes % 0 % 12/03/21 04:00 Blast Cells % 0 % 12/03/21 04:00 Nucleated RBC % Not Reportable 12/03/21 04:00 Seg Neutrophils # 12.6 K/mm3 (1.8-7.7) H 12/02/21 01:24 Seg Neutrophils # Man 4.1 K/mm3 (1.8-7.7) 12/03/21 04:00 Band Neutrophils # 1.1 K/mm3 12/03/21 04:00 Lymphocytes # (Manual) 0.4 K/mm3 (1.2-5.4) L 12/03/21 04:00 Abs React Lymphs (Man) 0.0 K/mm3 12/03/21 04:00 Monocytes # (Manual) 0.2 K/mm3 (0.0-0.8) 12/03/21 04:00 Eosinophils # (Manual) 0.0 K/mm3 (0.0-0.4) 12/03/21 04:00 Basophils # (Manual) 0.0 K/mm3 (0.0-0.1) 12/03/21 04:00 Metamyelocytes # 0.2 K/mm3 12/03/21 04:00 Myelocytes # 0.1 K/mm3 12/03/21 04:00 Promyelocytes # 0.0 K/mm3 12/03/21 04:00 Blast Cells # 0.0 K/mm3 12/03/21 04:00 WBC Morphology Not Reportable 12/03/21 04:00 Hypersegmented Neuts Not Reportable 12/03/21 04:00 Hyposegmented Neuts Not Reportable 12/03/21 04:00 Hypogranular Neuts Not Reportable 12/03/21 04:00 Smudge Cells Not Reportable 12/03/21 04:00 Toxic Granulation Not Reportable 12/03/21 04:00 Toxic Vacuolation Not Reportable 12/03/21 04:00 Dohle Bodies Not Reportable 12/03/21 04:00 Pelger-Huet Anomaly Not Reportable 12/03/21 04:00 Randee Rods Not Reportable 12/03/21 04:00 Platelet Estimate Consistent w auto 12/03/21 04:00 Clumped Platelets Few 12/03/21 04:00 Plt Clumps, EDTA Not Reportable 12/03/21 04:00 Large Platelets Few 12/03/21 04:00 Giant Platelets Not Reportable 12/03/21 04:00 Platelet Satelliting Not Reportable 12/03/21 04:00 Plt Morphology Comment Not Reportable 12/03/21 04:00 RBC Morphology Not Reportable 12/03/21 04:00 Dimorphic RBCs Not Reportable 12/03/21 04:00 Polychromasia Not Reportable 12/03/21 04:00 Hypochromasia Not Reportable 12/03/21 04:00 Poikilocytosis Not Reportable 12/03/21 04:00 Anisocytosis Not Reportable 12/03/21 04:00 Microcytosis Not Reportable 12/03/21 04:00 Macrocytosis Not Reportable 12/03/21 04:00 Spherocytes Not Reportable 12/03/21 04:00 Pappenheimer Bodies Not Reportable 12/03/21 04:00 Sickle Cells Not Reportable 12/03/21 04:00 Target Cells Not Reportable 12/03/21 04:00 Tear Drop Cells Not Reportable 12/03/21 04:00 Ovalocytes Not Reportable 12/03/21 04:00 Helmet Cells Not Reportable 12/03/21 04:00 [place] Bodies Not Reportable 12/03/21 04:00 Catarina Rings Not Reportable 12/03/21 04:00 Ania Cells 1+ 12/03/21 04:00 Bite Cells Not Reportable 12/03/21 04:00 Crenated Cell Not Reportable 12/03/21 04:00 Elliptocytes Not Reportable 12/03/21 04:00 Acanthocytes (Spur) Rare 12/03/21 04:00 Rouleaux Not Reportable 12/03/21 04:00 Hemoglobin C Crystals Not Reportable 12/03/21 04:00 Schistocytes Not Reportable 12/03/21 04:00 Malaria parasites Not Reportable 12/03/21 04:00 Josemanuel Bodies Not Reportable 12/03/21 04:00 Hem Pathologist Commnt No 12/03/21 04:00 PT 15.9 Sec. (12.2-14.9) H 12/02/21 01:24 INR 1.15 (0.87-1.13) H 12/02/21 01:24 APTT 31.5 Sec. (24.2-36.6) 12/02/21 01:24 D-Dimer 1461.68 ng/mlDDU (0-234) H 12/02/21 04:18 ABG pH 7.519 pH Units (7.350-7.450) H 12/07/21 04:55 ABG pCO2 34.0 mm Hg 12/07/21 04:55 ABG pO2 65.4 mm Hg (80.0-90.0) L 12/07/21 04:55 ABG HCO3 27.1 mmol/L (20.0-26.0) H 12/07/21 04:55 ABG O2 Saturation 96.7 % (95.0-99.0) 12/07/21 04:55 ABG O2 Content 11.2 (0.0-44) 12/07/21 04:55 ABG Base Excess 4.1 mmol/L (-2.0-3.0) H 12/07/21 04:55 ABG Hemoglobin 8.3 gm/dl (12.0-16.0) L 12/07/21 04:55 ABG Carboxyhemoglobin 1.1 % (0.0-5.0) 12/07/21 04:55 ABG Methemoglobin 0.7 % (0.0-1.5) 12/07/21 04:55 VBG pH 7.167 (7.320-7.420) L* 12/02/21 01:24 Oxyhemoglobin 94.9 % (95.0-99.0) L 12/07/21 04:55 FiO2 65 % 12/07/21 04:55 Sodium 141 mmol/L (137-145) 12/07/21 04:00 Potassium 3.9 mmol/L (3.6-5.0) 12/07/21 04:00 Chloride 98.9 mmol/L (98-107) 12/07/21 04:00 Carbon Dioxide 26 mmol/L (22-30) 12/07/21 04:00 Anion Gap 20 mmol/L 12/07/21 04:00 BUN 50 mg/dL (7-17) H 12/07/21 04:00 Creatinine 5.5 mg/dL (0.6-1.2) H 12/07/21 04:00 Estimated GFR 7 ml/min 12/07/21 04:00 BUN/Creatinine Ratio 9 % 12/07/21 04:00 Glucose 248 mg/dL (65-100) H 12/07/21 04:00 POC Glucose 215 mg/dL (70-105) H 12/07/21 10:49 Lactic Acid 4.60 mmol/L (0.7-2.0) H* 12/04/21 04:18 Calcium 9.2 mg/dL (8.4-10.2) 12/07/21 04:00 Phosphorus 2.90 mg/dL (2.5-4.5) 12/07/21 04:00 Magnesium 2.10 mg/dL (1.7-2.3) 12/07/21 04:00 Ferritin 168.9 ng/mL (10.0-200.0) 12/02/21 04:18 Total Bilirubin 0.40 mg/dL (0.1-1.2) 12/02/21 01:24 AST 86 units/L (5-40) H 12/02/21 01:24 ALT 69 units/L (7-56) H 12/02/21 01:24 Alkaline Phosphatase 91 units/L (35-129) 12/02/21 01:24 Lactate Dehydrogenase 958 units/L (91-180) H 12/02/21 04:18 Total Creatine Kinase 254 units/L (30-135) H 12/02/21 01:24 CK-MB (CK-2) 20.2 ng/mL (0.0-4.0) H 12/02/21 01:24 CK-MB (CK-2) Rel Index 7.9 (0-4) H 12/02/21 01:24 Troponin T 2.500 ng/mL (0.00-0.029) H* 12/02/21 13:51 C-Reactive Protein 6.60 mg/dL (0.00-1.30) H 12/02/21 04:18 NT-Pro-B Natriuret Pep > 3500 pg/mL (0-900) H 12/02/21 01:24 Total Protein 7.7 g/dL (6.3-8.2) 12/02/21 01:24 Albumin 4.0 g/dL (3.9-5) 12/02/21 01:24 Albumin/Globulin Ratio 1.1 % 12/02/21 01:24 Triglycerides 280 mg/dL (2-149) H 12/05/21 04:22 Cholesterol 177 mg/dL (50-199) 12/02/21 01:24 LDL Cholesterol Direct 91 mg/dL (50-130) 12/02/21 01:24 HDL Cholesterol 74 mg/dL (40-59) H 12/02/21 01:24 Cholesterol/HDL Ratio 2.39 % 12/02/21 01:24 Procalcitonin 1.24 ng/mL (<0.15) 12/02/21 04:18 Urine Color Yellow (Yellow) 12/03/21 13:48 Urine Turbidity Hazy (Clear) 12/03/21 13:48 Urine pH 7.0 (5.0-7.0) 12/03/21 13:48 Ur Specific [place] 1.009 (1.003-1.030) 12/03/21 13:48 Urine Protein >500 mg/dL (Negative) 12/03/21 13:48 Urine Glucose (UA) 50 mg/dL (Negative) 12/03/21 13:48 Urine Ketones Neg mg/dL (Negative) 12/03/21 13:48 Urine Blood Mod (Negative) 12/03/21 13:48 Urine Nitrite Neg (Negative) 12/03/21 13:48 Urine Bilirubin Neg (Negative) 12/03/21 13:48 Urine Urobilinogen < 2.0 mg/dL (<2.0) 12/03/21 13:48 Ur Leukocyte Esterase Neg (Negative) 12/03/21 13:48 Urine WBC (Auto) 9.0 /HPF (0.0-6.0) H 12/03/21 13:48 Urine RBC (Auto) 5.0 /HPF (0.0-6.0) 12/03/21 13:48 U Epithel Cells (Auto) 2.0 /HPF (0-13.0) 12/03/21 13:48 Urine Bacteria (Auto) 1+ /HPF (Negative) 12/02/21 00:52 Urine Mucus Few /HPF 12/03/21 13:48 Urine Yeast (Budding) Few /HPF 12/02/21 00:52 Urine Creatinine 24.4 mg/dL (0.1-20.0) H 12/02/21 00:52 Protein/Creatinin Ratio 4.55 12/02/21 00:52 Urine Sodium 109 mmol/L 12/02/21 00:52 Urine Total Protein 111 mg/dL (5-11.8) H 12/02/21 00:52 Random Vancomycin 14.0 ug/mL (0-40.0) 12/05/21 04:22 Coronavirus (PCR) Negative (Negative) 12/02/21 09:00 Hepatitis A IgM Ab Non-reactive (NonReactive) 12/05/21 04:22 Hep Bs Antigen Non-reactive (Negative) 12/05/21 04:22 Hep B Core IgM Ab Non-reactive (NonReactive) 12/05/21 04:22 Hepatitis C Antibody Non-reactive (NonReactive) 12/05/21 04:22 Microbiology: Microbiology 12/02/21 01:46 Peripheral/Venous Blood Culture - Final NO GROWTH AFTER 5 DAYS 12/02/21 01:24 Peripheral/Venous Blood Culture - Final NO GROWTH AFTER 5 DAYS Palacio/IV: Voiding Method Indwelling Catheter Active Medications - Current Medications Current Medications: Generic Name Dose Route Start Last Admin Trade Name Freq PRN Reason Stop Dose Admin Acetaminophen 650 mg 12/02/21 04:37 12/07/21 04:58 Acetaminophen 325 Mg Tab PO 650 mg Q4H PRN Administration Pain MILD(1-3)/Fever >100.5/HYLTON Alprazolam 0.5 mg 12/02/21 11:30 12/05/21 04:40 Alprazolam 0.5 Mg Tab PO 0.5 mg Q8H PRN Administration Anxiety Amlodipine Besylate 10 mg 12/03/21 10:00 12/07/21 09:07 Amlodipine 10 Mg Tab PO 10 mg DAILY KHARI Administration Aspirin 81 mg 12/03/21 10:00 12/07/21 09:05 Aspirin 81 Mg Tab Chew PO 81 mg QDAY KHARI Administration Cilostazol 50 mg 12/02/21 22:00 12/06/21 23:12 Cilostazol 100 Mg Tab PO 50 mg BID KHARI Administration Clopidogrel Bisulfate 75 mg 12/03/21 10:00 12/07/21 09:05 Clopidogrel 75 Mg Tab PO 75 mg QDAY KHARI Administration Dextrose 0 ml 12/02/21 05:10 Dextrose 10% *Hypoglycemia IV PRN PRN Hypoglycemia Protocol Epoetin Lenny-epbx 10,000 unit 12/05/21 10:00 Epoetin Lenny-Epbx 10,000 Unit/1 Ml Vial IV ED PRN hemodialysis Famotidine 10 mg 12/04/21 22:00 12/07/21 09:05 Famotidine 10 Mg Tab PO 10 mg BID KHARI Administration Heparin Sodium (Porcine) 5,000 unit 12/02/21 06:00 12/07/21 13:18 Heparin 5,000 Unit/1 Ml Vial SUB-Q 5,000 unit Q8HR KHARI Administration Hydrophilic Ointment 1 applic 12/02/21 17:32 Lip Therapy Vaseline TP Q2HR PRN Dry Lips Cefepime HCl 1 gm in 100 mls @ 200 mls/hr 12/02/21 18:00 12/06/21 17:38 Cefepime/Ns 1 Gm/100 Ml IV 12/08/21 17:59 200 mls/hr QPM KHARI Administration Protocol Propofol 1,000 mg in 100 mls @ 1.839 mls/hr 12/02/21 18:00 12/06/21 21:43 Diprivan 10 Mg/Ml IV 5 mcg/kg/min TITR KHARI 1.839 mls/hr Titration Protocol 5 MCG/KG/MIN Sodium Chloride 100 mls @ 999 mls/hr 12/06/21 12:00 Nacl 0.9% IV ED PRN Hypotension Insulin Glargine 15 units 12/07/21 08:35 Insulin Glargine 100 Units/Ml SUB-Q QHS [facility] Insulin Human Lispro 0 unit 12/03/21 00:00 12/07/21 12:33 Insulin Lispro 100 Unit/Ml SUB-Q 4 unit Q6HR KHARI Administration Protocol Levalbuterol HCl 0.63 mg 12/02/21 10:00 Levalbuterol 0.63 Mg/3 Ml Nebu IH Q8HRT PRN Shortness Of Breath Lorazepam 1 mg 12/02/21 14:22 12/02/21 15:18 Lorazepam 2 Mg/Ml Vial IV 1 mg Q6H PRN Administration Agitation Magnesium Hydroxide 30 ml 12/02/21 04:37 Magnesium Hydroxide (Mom) Oral Liqd Udc PO Q4H PRN Constipation Metoprolol Tartrate 25 mg 12/02/21 15:00 12/07/21 09:05 Metoprolol Tartrate 25 Mg Tab PO 25 mg QDAY KHARI Administration Metoprolol Tartrate 2.5 mg 12/06/21 11:11 Metoprolol Tartrate 5 Mg/5 Ml Inj IV Q6HR PRN Tachycardia Morphine Sulfate 2 mg 12/02/21 04:37 12/04/21 10:10 Morphine 2 Mg/1 Ml Inj IV 2 mg Q4H PRN Administration Pain, Moderate (4-6) Morphine Sulfate 4 mg 12/02/21 04:37 Morphine 4 Mg/1 Ml Inj IV Q4H PRN Pain , Severe (7-10) Multi-Ingred Cream/Lotion/Oil/Oint 1 applic 12/02/21 17:32 Mineral Oil/Petrolatum, White Ophth Oint 3.5 Gm OU Q4HR PRN Dry Eye(s) Ondansetron HCl 4 mg 12/02/21 04:37 Ondansetron 4 Mg/2 Ml Inj IV Q8H PRN Nausea And Vomiting Pravastatin Sodium 80 mg 12/02/21 22:00 12/06/21 23:12 Pravastatin 80 Mg Tab PO 80 mg QHS KHARI Administration Quetiapine Fumarate 50 mg 12/06/21 22:00 12/06/21 21:38 Quetiapine 25 Mg Tab PO 50 mg QHS KHARI Administration Senna/Docusate Sodium 1 tab 12/02/21 22:00 12/07/21 09:05 Sennosides/Docusate Sodium 8.6/50 Mg Tab FEEDTUBE 1 tab BID KHARI Administration Sodium Chloride 10 ml 12/02/21 10:00 12/07/21 09:08 Sodium Chloride 0.9% 10 Ml Flush Syringe IV 10 ml BID KHARI Administration Sodium Chloride 10 ml 12/02/21 04:37 Sodium Chloride 0.9% 10 Ml Flush Syringe IV PRN PRN LINE FLUSH Nutrition/Malnutrition Assess - Dietary Evaluation Nutrition/Malnutrition Findings: Nutrition Notes Start: 12/03/21 16:28 Freq: Status: Active Protocol: Document 12/06/21 16:59 ONI (Rec: 12/06/21 17:19 ONI [id number]) Nutrition Notes Initial or Follow up Brief Note Current Diagnosis Acute Kidney Injury,Diabetes, Sepsis,Hypertension, Respiratory Failure, Hyperlipidemia Other Pertinent Diagnosis Pneumonia, Lactic Acidosis, Metabolic Acidosis, RAYNE+HD, PVD, R-AKA. Current Diet TF-Nepro w/CARBSTEADY @ 30 ml/ hr (since D 12/05). Height 5 ft 4 in Weight 61.3 kg [place] Body Weight (kg) 54.54 BMI 23.1 Weight change and time frame No body weight change reported . Weight Status Appropriate Subjective/Other Information RD consult for routine F/U on TF tolerance. TF infusing as prescribed. No report available on tolerance. Pt continues on Mechanical Ventilation. Percent of energy/protein needs met: Prescribed TF-Nepro w/ CARBSTEADY @ 30 ml/hr provides for energy/protein needs (1, 296 Kcal/58 g) -in addition, Propofol adds 49 Kcal- during LOS, 108% Kcal; 78% AA. #1 Nutrition Diagnosis Inadequate oral intake Diagnosis Progress(for reassessment Continues documentation) Is patient on ventilator? Yes Is Patient Ambulatory and/or Out of Bed No REE-([facility]-confined to bed) [phone] Calculation Used for Recommendations [facility] Additional Notes Protein: >1.2 g/Kg; >74 g/day. Fluids: 1 ml/Kcal, or as per MD. Nutrition Intervention Nutrition Support: Nepro w/CARBSTEADY @ 30 ml/hr. Flush: 130 ml water Q 4 hr, or as per MD. Kcal 1,296 Protein (gm) 58 Carbohydrates (gm) 116 Fat (gm) 69 Fluid (mL) 523 Fiber (gm) 9 % RDI: 104% Kcal; 78% AA. Goal #1 Provide at least 75% of energy /protein needs through Enteral Feeding during LOS. Goal #2 Maintain body weight within +/ -3% of admission body weight during LOS. Follow-Up By: 12/12/21 Additional Comments Continue monitoring TF tolerance and BM.
[2021-12-07] MEDS ORDERED: SODIUM CHLORIDE 0.9% 100 ML IV PRN (15:36)
--- NOTE | 2021-12-07 15:39 | Progress Note ---
Assessment and Plan Impression: * Oligoanuric acute kidney injury secondary to ATN --HD intiation on Dec 06 * Metabolic acidosis, severe * Lactic acidosis * Acute hypoxic respiratory failure * Sepsis - ?bilateral PNA * NSTEMI Plan: * Patient is s/p yesterday * Will plan for HD again tomorrow. Continue MWF schedule * UF as tolerated * Monitor for evidence of renal recovery * Vent management per pulmonary * Cardiology recommendations reviewed * Abx per primary team/ID * Dose medications for renal * Avoid potential nephrotoxins * Strict I/O Subjective Date of service: 12/07/21 Principal diagnosis: Respiratory failure Interval history: No acute events. Patient remains intubated - TV 400, FiO2 50%, PEEP 6 Objective - Vital Signs Vital signs: Vital Signs - 12hr 12/07/21 12/07/21 12/07/21 03:46 04:00 04:30 Temperature 100.4 F H Pulse Rate 120 H 118 H Pulse Rate [ 103 H From Monitor] Respiratory 18 Rate Blood Pressure 122/64 119/59 O2 Sat by Pulse 95 96 Oximetry 12/07/21 12/07/21 12/07/21 04:35 05:00 05:30 Temperature Pulse Rate 118 H 113 H 111 H Pulse Rate [ From Monitor] Respiratory Rate Blood Pressure 120/61 108/54 111/57 O2 Sat by Pulse 96 97 98 Oximetry 12/07/21 12/07/21 12/07/21 06:00 06:30 07:00 Temperature Pulse Rate 106 H 111 H 112 H Pulse Rate [ From Monitor] Respiratory Rate Blood Pressure 108/51 121/65 117/57 O2 Sat by Pulse 98 98 98 Oximetry 12/07/21 12/07/21 12/07/21 07:21 07:30 08:00 Temperature 99.0 F Pulse Rate 112 H 121 H Pulse Rate [ 103 H From Monitor] Respiratory 18 Rate Blood Pressure 128/59 119/60 O2 Sat by Pulse 96 97 Oximetry 12/07/21 12/07/21 12/07/21 08:14 08:30 09:00 Temperature Pulse Rate 113 H 118 H 114 H Pulse Rate [ From Monitor] Respiratory Rate Blood Pressure 127/58 115/71 117/62 O2 Sat by Pulse 95 92 97 Oximetry 12/07/21 12/07/21 12/07/21 09:05 09:07 09:30 Temperature Pulse Rate 112 H 112 H 109 H Pulse Rate [ From Monitor] Respiratory Rate Blood Pressure 120/60 120/60 113/52 O2 Sat by Pulse 98 Oximetry 12/07/21 12/07/21 12/07/21 10:00 10:30 11:00 Temperature Pulse Rate 102 H 102 H 105 H Pulse Rate [ From Monitor] Respiratory Rate Blood Pressure 122/60 118/56 117/59 O2 Sat by Pulse 96 97 96 Oximetry 12/07/21 12/07/21 12/07/21 11:22 11:30 11:35 Temperature 98.7 F Pulse Rate 105 H 110 H Pulse Rate [ From Monitor] Respiratory Rate Blood Pressure 122/62 119/58 O2 Sat by Pulse 96 96 Oximetry 12/07/21 12/07/21 12/07/21 12:00 12:30 13:00 Temperature Pulse Rate 105 H 105 H 107 H Pulse Rate [ 103 H From Monitor] Respiratory 18 Rate Blood Pressure 117/60 125/61 119/63 O2 Sat by Pulse 97 96 96 Oximetry 12/07/21 12/07/21 12/07/21 13:30 14:00 14:30 Temperature Pulse Rate 113 H 121 H 115 H Pulse Rate [ From Monitor] Respiratory Rate Blood Pressure 137/70 132/71 128/67 O2 Sat by Pulse 95 96 96 Oximetry 12/07/21 12/07/21 15:00 15:19 Temperature Pulse Rate 117 H 114 H Pulse Rate [ From Monitor] Respiratory Rate Blood Pressure 127/59 128/67 O2 Sat by Pulse 97 96 Oximetry - General Appearance General appearance: well-developed, well-nourished, intubated EENT: ATNC, other (ETT in place) Respiratory: Present: Other (coarse BS) Cardiology: regular, S1S2 Gastrointestinal: hypoactive bowel sounds, no distended Integumentary: no rash, warm and dry Neurologic: other (sedated) - Lab 12/07/21 04:00 12/07/21 04:00 Most recent lab results ABG pH 7.519 pH Units (7.350-7.450) H 12/07/21 04:55 ABG pCO2 34.0 mm Hg 12/07/21 04:55 ABG pO2 65.4 mm Hg (80.0-90.0) L 12/07/21 04:55 ABG HCO3 27.1 mmol/L (20.0-26.0) H 12/07/21 04:55 ABG O2 Saturation 96.7 % (95.0-99.0) 12/07/21 04:55 Calcium 9.2 mg/dL (8.4-10.2) 12/07/21 04:00 Phosphorus 2.90 mg/dL (2.5-4.5) 12/07/21 04:00 Magnesium 2.10 mg/dL (1.7-2.3) 12/07/21 04:00 Urine Creatinine 24.4 mg/dL (0.1-20.0) H 12/02/21 00:52 Urine Sodium 109 mmol/L 12/02/21 00:52 Urine Total Protein 111 mg/dL (5-11.8) H 12/02/21 00:52 Medications & Allergies - Medications Allergies/Adverse Reactions: Allergies No Known Allergies Allergy (Verified 04/05/19 15:30) Home Medications: Home Medications Medication Instructions Recorded Confirmed Last Taken Type Gabapentin 300 mg PO BID 04/05/19 04/06/19 Unknown History Metoprolol [Lopressor TAB] 25 mg PO QDAY 04/05/19 04/06/19 Unknown History Simvastatin 40 mg PO QHS 04/05/19 04/06/19 Unknown History Vitamin D2 50,000 units PO QWEEK 04/05/19 04/06/19 Unknown History amLODIPine 10 mg PO DAILY 04/05/19 04/05/19 Unknown History metFORMIN [Glucophage] 500 mg PO QHS 04/05/19 04/06/19 Unknown History raNITIdine HCl [Zantac] 300 mg PO QDAY 04/05/19 04/06/19 Unknown History Aspirin [Aspirin BABY CHEW TAB] 81 mg PO QDAY #30 tab.chew 04/12/19 Unknown Rx Clopidogrel [Plavix] 75 mg PO QDAY #30 tablet 04/12/19 Unknown Rx cilostazoL [Pletal] 50 mg PO BID #30 tablet 04/12/19 Unknown Rx oxyCODONE /ACETAMINOPHEN [Percocet 2 tab PO Q6H PRN #20 tablet 04/12/19 Unknown Rx 5/325 mg] Active Medications: Generic Name Dose Route Start Last Admin Trade Name Freq PRN Reason Stop Dose Admin Acetaminophen 650 mg 12/02/21 04:37 12/07/21 04:58 Acetaminophen 325 Mg Tab PO 650 mg Q4H PRN Administration Pain MILD(1-3)/Fever >100.5/HYLTON Alprazolam 0.5 mg 12/02/21 11:30 12/05/21 04:40 Alprazolam 0.5 Mg Tab PO 0.5 mg Q8H PRN Administration Anxiety Amlodipine Besylate 10 mg 12/03/21 10:00 12/07/21 09:07 Amlodipine 10 Mg Tab PO 10 mg DAILY KHARI Administration Aspirin 81 mg 12/03/21 10:00 12/07/21 09:05 Aspirin 81 Mg Tab Chew PO 81 mg QDAY KHARI Administration Cilostazol 50 mg 12/02/21 22:00 12/06/21 23:12 Cilostazol 100 Mg Tab PO 50 mg BID KHARI Administration Clopidogrel Bisulfate 75 mg 12/03/21 10:00 12/07/21 09:05 Clopidogrel 75 Mg Tab PO 75 mg QDAY KHARI Administration Dextrose 0 ml 12/02/21 05:10 Dextrose 10% *Hypoglycemia IV PRN PRN Hypoglycemia Protocol Epoetin Lenny-epbx 10,000 unit 12/05/21 10:00 Epoetin Lenny-Epbx 10,000 Unit/1 Ml Vial IV ED PRN hemodialysis Famotidine 10 mg 12/04/21 22:00 12/07/21 09:05 Famotidine 10 Mg Tab PO 10 mg BID KHARI Administration Heparin Sodium (Porcine) 5,000 unit 12/02/21 06:00 12/07/21 13:18 Heparin 5,000 Unit/1 Ml Vial SUB-Q 5,000 unit Q8HR KHARI Administration Hydrophilic Ointment 1 applic 12/02/21 17:32 Lip Therapy Vaseline TP Q2HR PRN Dry Lips Cefepime HCl 1 gm in 100 mls @ 200 mls/hr 12/02/21 18:00 12/06/21 17:38 Cefepime/Ns 1 Gm/100 Ml IV 12/08/21 17:59 200 mls/hr QPM KHARI Administration Protocol Propofol 1,000 mg in 100 mls @ 1.839 mls/hr 12/02/21 18:00 12/07/21 14:49 Diprivan 10 Mg/Ml IV 10 mcg/kg/min TITR KHARI 3.678 mls/hr Titration Protocol 5 MCG/KG/MIN Sodium Chloride 100 mls @ 999 mls/hr 12/06/21 12:00 Nacl 0.9% IV ED PRN Hypotension Insulin Glargine 15 units 12/07/21 08:35 Insulin Glargine 100 Units/Ml SUB-Q QHS KHARI Insulin Human Lispro 0 unit 12/03/21 00:00 12/07/21 12:33 Insulin Lispro 100 Unit/Ml SUB-Q 4 unit Q6HR KHARI Administration Protocol Levalbuterol HCl 0.63 mg 12/02/21 10:00 Levalbuterol 0.63 Mg/3 Ml Nebu IH Q8HRT PRN Shortness Of Breath Lorazepam 1 mg 12/02/21 14:22 12/02/21 15:18 Lorazepam 2 Mg/Ml Vial IV 1 mg Q6H PRN Administration Agitation Magnesium Hydroxide 30 ml 12/02/21 04:37 Magnesium Hydroxide (Mom) Oral Liqd Udc PO Q4H PRN Constipation Metoprolol Tartrate 25 mg 12/02/21 15:00 12/07/21 09:05 Metoprolol Tartrate 25 Mg Tab PO 25 mg QDAY KHARI Administration Metoprolol Tartrate 2.5 mg 12/06/21 11:11 Metoprolol Tartrate 5 Mg/5 Ml Inj IV Q6HR PRN Tachycardia Morphine Sulfate 2 mg 12/02/21 04:37 12/04/21 10:10 Morphine 2 Mg/1 Ml Inj IV 2 mg Q4H PRN Administration Pain, Moderate (4-6) Morphine Sulfate 4 mg 12/02/21 04:37 Morphine 4 Mg/1 Ml Inj IV Q4H PRN Pain , Severe (7-10) Multi-Ingred Cream/Lotion/Oil/Oint 1 applic 12/02/21 17:32 Mineral Oil/Petrolatum, White Ophth Oint 3.5 Gm OU Q4HR PRN Dry Eye(s) Ondansetron HCl 4 mg 12/02/21 04:37 Ondansetron 4 Mg/2 Ml Inj IV Q8H PRN Nausea And Vomiting Pravastatin Sodium 80 mg 12/02/21 22:00 12/06/21 23:12 Pravastatin 80 Mg Tab PO 80 mg QHS REPLACED BY [facility] Administration Quetiapine Fumarate 50 mg 12/06/21 22:00 12/06/21 21:38 Quetiapine 25 Mg Tab PO 50 mg QHS KHARI Administration Senna/Docusate Sodium 1 tab 12/02/21 22:00 12/07/21 09:05 Sennosides/Docusate Sodium 8.6/50 Mg Tab FEEDTUBE 1 tab BID KHARI Administration Sodium Chloride 10 ml 12/02/21 10:00 12/07/21 09:08 Sodium Chloride 0.9% 10 Ml Flush Syringe IV 10 ml BID KHARI Administration Sodium Chloride 10 ml 12/02/21 04:37 Sodium Chloride 0.9% 10 Ml Flush Syringe IV PRN PRN LINE FLUSH
[2021-12-07] MEDS: CEFEPIME/NS 1 GM/100 ML 1 GM/100 ML BAG IV SCH ×2 (17:43→17:49)
[2021-12-07] MEDS: CILOSTAZOL 100 MG TAB PO SCH ×2 (17:44→22:11)
[2021-12-07] MEDS: PRAVASTATIN 80 MG TAB PO SCH (22:11)
[2021-12-07] MEDS: QUEtiapine 25 MG TAB PO SCH (22:12)
[2021-12-08] MEDS: INSULIN LISPRO 100 UNIT/ML SUB-Q SCH ×5 (00:03→17:31)
--- NOTE | 2021-12-08 02:41 | XRay Report ---
XR chest 1V ap INDICATION / CLINICAL INFORMATION: follow up respiratory failure. COMPARISON: Radiograph from yesterday. FINDINGS: SUPPORT DEVICES: Unchanged. HEART /PULMONARY VASCULATURE: Unchanged. LUNGS / PLEURA: Airspace disease is improving compared to prior examination. No pneumothorax. IMPRESSION: 1. Improving airspace disease. Signer Name: Torito Lam MD Signed: 12/08/2021 2:37 AM Workstation Name: [id number]
[2021-12-08 04:29] LABS: ABG Base Excess 1.9 mmol/L (-2.0-3.0); ABG HCO3 24.7 mmol/L (20.0-26.0); ABG Methemoglobin 0.5 % (0.0-1.5); ABG PCO2 31.6 mm Hg; ABG PH 7.511 pH Units (7.350-7.450); ABG PO2 77.8 mm Hg (80.0-90.0)
[2021-12-08 05:42] LABS: Hematocrit 25.6 % (30.3-42.9); Hemoglobin 8.9 gm/dl (10.1-14.3); Mean Corpuscular HGB Conc 35 % (30-34); Mean Corpuscular Volume 88 fl (79-97); Platelet Count 202 K/mm3 (140-440); Red Blood Count 2.91 M/mm3 (3.65-5.03); Red Cell Distribution Width 15.6 % (13.2-15.2)
[2021-12-08 05:53] LABS: Calcium 9.5 mg/dL (8.4-10.2)
[2021-12-08] MEDS: HEPARIN 5,000 UNIT/1 ML VIAL SUB-Q SCH ×3 (06:14→22:29)
[2021-12-08] MEDS: amLODIPine 10 MG TAB PO SCH (10:00)
--- NOTE | 2021-12-08 10:43 | Progress Note ---
Assessment and Plan Impression: * Oligoanuric acute kidney injury secondary to ATN --HD initiation on Dec 06 * Metabolic acidosis, severe * Lactic acidosis * Acute hypoxic respiratory failure * Sepsis - ?bilateral PNA * NSTEMI Plan: * Patient is s/p yesterday 12/06 * Plan for HD today, continue MWF schedule or prn * UF as tolerated * Monitor for evidence of renal recovery- no sign of recovery with minimal urine output, uptrending creatinine * Vent management per pulmonary * Cardiology recommendations reviewed * Abx per primary team/ID * Dose medications for renal * Avoid potential nephrotoxins * Strict I/O Subjective Date of service: 12/08/21 Principal diagnosis: Respiratory failure Interval history: No acute events. Patient remains intubated - TV 400, FiO2 50%, PEEP 6 Objective - Exam Narrative Exam: General appearance: well-developed, well-nourished, intubated EENT: ATNC, other (ETT in place) Respiratory: Present: Other (coarse BS) Cardiology: regular, S1S2 Gastrointestinal: hypoactive bowel sounds, no distended Integumentary: no rash, warm and dry Neurologic: other (sedated) Skin: intact - Vital Signs Vital signs: Vital Signs - 12hr 12/07/21 12/07/21 12/07/21 23:00 23:14 23:30 Temperature Pulse Rate 119 H 117 H 117 H Pulse Rate [ From Monitor] Respiratory Rate Blood Pressure 122/58 122/58 112/55 O2 Sat by Pulse 93 93 93 Oximetry 12/07/21 12/08/21 12/08/21 23:45 00:00 00:30 Temperature 98.4 F Pulse Rate 119 H 118 H 121 H Pulse Rate [ 116 H From Monitor] Respiratory 18 Rate Blood Pressure 112/55 108/52 122/60 O2 Sat by Pulse 94 94 93 Oximetry 12/08/21 12/08/21 12/08/21 01:00 01:30 02:00 Temperature Pulse Rate 121 H 116 H 114 H Pulse Rate [ From Monitor] Respiratory Rate Blood Pressure 116/60 113/60 122/64 O2 Sat by Pulse 94 94 96 Oximetry 12/08/21 12/08/21 12/08/21 02:30 03:00 03:12 Temperature Pulse Rate 121 H 109 H 116 H Pulse Rate [ From Monitor] Respiratory Rate Blood Pressure 129/68 113/63 113/63 O2 Sat by Pulse 94 96 95 Oximetry 12/08/21 12/08/21 12/08/21 03:30 04:00 04:30 Temperature 97.9 F Pulse Rate 113 H 117 H 120 H Pulse Rate [ 119 H From Monitor] Respiratory 20 Rate Blood Pressure 122/66 128/73 135/68 O2 Sat by Pulse 96 95 95 Oximetry 12/08/21 12/08/21 12/08/21 05:00 05:30 06:00 Temperature Pulse Rate 110 H 120 H 119 H Pulse Rate [ From Monitor] Respiratory Rate Blood Pressure 112/60 126/69 127/67 O2 Sat by Pulse 96 94 94 Oximetry 12/08/21 12/08/21 12/08/21 06:30 07:00 07:30 Temperature Pulse Rate 113 H 109 H 115 H Pulse Rate [ From Monitor] Respiratory Rate Blood Pressure 122/64 118/64 118/64 O2 Sat by Pulse 98 98 98 Oximetry 12/08/21 12/08/21 12/08/21 07:33 08:00 08:30 Temperature 98 F Pulse Rate 114 H 118 H 119 H Pulse Rate [ From Monitor] Respiratory Rate Blood Pressure 128/65 137/77 137/77 O2 Sat by Pulse 98 97 97 Oximetry - Lab 12/08/21 04:00 12/08/21 04:00 Most recent lab results ABG pH 7.511 pH Units (7.350-7.450) H 12/08/21 04:10 ABG pCO2 31.6 mm Hg 12/08/21 04:10 ABG pO2 77.8 mm Hg (80.0-90.0) L 12/08/21 04:10 ABG HCO3 24.7 mmol/L (20.0-26.0) 12/08/21 04:10 ABG O2 Saturation 97.0 % (95.0-99.0) 12/08/21 04:10 Calcium 9.5 mg/dL (8.4-10.2) 12/08/21 04:00 Phosphorus 3.70 mg/dL (2.5-4.5) D 12/08/21 04:00 Magnesium 2.50 mg/dL (1.7-2.3) H 12/08/21 04:00 Urine Creatinine 24.4 mg/dL (0.1-20.0) H 12/02/21 00:52 Urine Sodium 109 mmol/L 12/02/21 00:52 Urine Total Protein 111 mg/dL (5-11.8) H 12/02/21 00:52 Medications & Allergies - Medications Allergies/Adverse Reactions: Allergies No Known Allergies Allergy (Verified 04/05/19 15:30) Home Medications: Home Medications Medication Instructions Recorded Confirmed Last Taken Type Gabapentin 300 mg PO BID 04/05/19 04/06/19 Unknown History Metoprolol [Lopressor TAB] 25 mg PO QDAY 04/05/19 04/06/19 Unknown History Simvastatin 40 mg PO QHS 04/05/19 04/06/19 Unknown History Vitamin D2 50,000 units PO QWEEK 04/05/19 04/06/19 Unknown History amLODIPine 10 mg PO DAILY 04/05/19 04/05/19 Unknown History metFORMIN [Glucophage] 500 mg PO QHS 04/05/19 04/06/19 Unknown History raNITIdine HCl [Zantac] 300 mg PO QDAY 04/05/19 04/06/19 Unknown History Aspirin [Aspirin BABY CHEW TAB] 81 mg PO QDAY #30 tab.chew 04/12/19 Unknown Rx Clopidogrel [Plavix] 75 mg PO QDAY #30 tablet 04/12/19 Unknown Rx cilostazoL [Pletal] 50 mg PO BID #30 tablet 04/12/19 Unknown Rx oxyCODONE /ACETAMINOPHEN [Percocet 2 tab PO Q6H PRN #20 tablet 04/12/19 Unknown Rx 5/325 mg] Active Medications: Generic Name Dose Route Start Last Admin Trade Name Freq PRN Reason Stop Dose Admin Acetaminophen 650 mg 12/02/21 04:37 12/07/21 04:58 Acetaminophen 325 Mg Tab PO 650 mg Q4H PRN Administration Pain MILD(1-3)/Fever >100.5/HYLTON Alprazolam 0.5 mg 12/02/21 11:30 12/05/21 04:40 Alprazolam 0.5 Mg Tab PO 0.5 mg Q8H PRN Administration Anxiety Amlodipine Besylate 10 mg 12/03/21 10:00 12/07/21 09:07 Amlodipine 10 Mg Tab PO 10 mg DAILY KHARI Administration Aspirin 81 mg 12/03/21 10:00 12/07/21 09:05 Aspirin 81 Mg Tab Chew PO 81 mg QDAY KHARI Administration Cilostazol 50 mg 12/02/21 22:00 12/07/21 22:11 Cilostazol 100 Mg Tab PO 50 mg BID KHARI Administration Clopidogrel Bisulfate 75 mg 12/03/21 10:00 12/07/21 09:05 Clopidogrel 75 Mg Tab PO 75 mg QDAY KHARI Administration Dextrose 0 ml 12/02/21 05:10 Dextrose 10% *Hypoglycemia IV PRN PRN Hypoglycemia Protocol Epoetin Lenny-epbx 10,000 unit 12/05/21 10:00 Epoetin Lenny-Epbx 10,000 Unit/1 Ml Vial IV ED PRN hemodialysis Famotidine 10 mg 12/04/21 22:00 12/07/21 22:12 Famotidine 10 Mg Tab PO 10 mg BID KHARI Administration Heparin Sodium (Porcine) 5,000 unit 12/02/21 06:00 12/08/21 06:14 Heparin 5,000 Unit/1 Ml Vial SUB-Q 5,000 unit Q8HR KHARI Administration Hydrophilic Ointment 1 applic 12/02/21 17:32 Lip Therapy Vaseline TP Q2HR PRN Dry Lips Cefepime HCl 1 gm in 100 mls @ 200 mls/hr 12/02/21 18:00 12/07/21 17:49 Cefepime/Ns 1 Gm/100 Ml IV 12/08/21 17:59 200 mls/hr QPM KHARI Administration Protocol Propofol 1,000 mg in 100 mls @ 1.839 mls/hr 12/02/21 18:00 12/08/21 10:02 Diprivan 10 Mg/Ml IV 10 mcg/kg/min TITR KHARI 3.678 mls/hr Administration Protocol 5 MCG/KG/MIN Sodium Chloride 100 mls @ 999 mls/hr 12/07/21 15:36 Nacl 0.9% IV ED PRN Hypotension Insulin Glargine 15 units 12/07/21 08:35 12/08/21 00:03 Insulin Glargine 100 Units/Ml SUB-Q 15 units QHS KHARI Administration Insulin Human Lispro 0 unit 12/03/21 00:00 12/08/21 06:14 Insulin Lispro 100 Unit/Ml SUB-Q 3 unit Q6HR KHARI Administration Protocol Levalbuterol HCl 0.63 mg 12/02/21 10:00 Levalbuterol 0.63 Mg/3 Ml Nebu IH Q8HRT PRN Shortness Of Breath Lorazepam 1 mg 12/02/21 14:22 12/02/21 15:18 Lorazepam 2 Mg/Ml Vial IV 1 mg Q6H PRN Administration Agitation Magnesium Hydroxide 30 ml 12/02/21 04:37 Magnesium Hydroxide (Mom) Oral Liqd Udc PO Q4H PRN Constipation Metoprolol Tartrate 25 mg 12/02/21 15:00 12/07/21 09:05 Metoprolol Tartrate 25 Mg Tab PO 25 mg QDAY KHARI Administration Metoprolol Tartrate 2.5 mg 12/06/21 11:11 12/07/21 17:48 Metoprolol Tartrate 5 Mg/5 Ml Inj IV 2.5 mg Q6HR PRN Administration Tachycardia Multi-Ingred Cream/Lotion/Oil/Oint 1 applic 12/02/21 17:32 Mineral Oil/Petrolatum, White Ophth Oint 3.5 Gm OU Q4HR PRN Dry Eye(s) Ondansetron HCl 4 mg 12/02/21 04:37 Ondansetron 4 Mg/2 Ml Inj IV Q8H PRN Nausea And Vomiting Pravastatin Sodium 80 mg 12/02/21 22:00 12/07/21 22:11 Pravastatin 80 Mg Tab PO 80 mg QHS KHARI Administration Quetiapine Fumarate 50 mg 12/06/21 22:00 12/07/21 22:12 Quetiapine 25 Mg Tab PO 50 mg QHS KHARI Administration Senna/Docusate Sodium 1 tab 12/02/21 22:00 12/07/21 22:12 Sennosides/Docusate Sodium 8.6/50 Mg Tab FEEDTUBE 1 tab BID KHARI Administration Sodium Chloride 10 ml 12/02/21 10:00 12/07/21 22:14 Sodium Chloride 0.9% 10 Ml Flush Syringe IV 10 ml BID KHARI Administration Sodium Chloride 10 ml 12/02/21 04:37 Sodium Chloride 0.9% 10 Ml Flush Syringe IV PRN PRN LINE FLUSH
--- NOTE | 2021-12-08 12:11 | Progress Note ---
Assessment and Plan - Patient Problems (1) Non-ST elevation myocardial infarction (NSTEMI) Current Visit: Yes Status: Acute Subjective Date of service: 12/08/21 Principal diagnosis: Respiratory failure Interval history: The patient is unresponsive, on the vent. Dialysis is currently ongoing at the bedside. potline monitor shows a sinus rhythm with frequent PACs. Objective Vital Signs Temp Pulse Pulse Resp BP Pulse Ox 12/08/21 11:30 108 H 120/69 98 12/08/21 11:21 121 H 113/63 97 12/08/21 11:00 130 H 148/73 96 12/08/21 10:30 120 H 143/77 98 12/08/21 10:00 118 H 138/75 97 12/08/21 09:30 120 H 141/71 97 12/08/21 09:00 120 H 135/74 97 12/08/21 08:30 119 H 137/77 97 12/08/21 08:00 98 F 118 H 119 H 20 137/77 95 12/08/21 07:33 114 H 128/65 98 12/08/21 07:30 115 H 118/64 98 12/08/21 07:00 109 H 118/64 98 12/08/21 06:30 113 H 122/64 98 12/08/21 06:00 119 H 127/67 94 12/08/21 05:30 120 H 126/69 94 12/08/21 05:00 110 H 112/60 96 12/08/21 04:30 120 H 135/68 95 12/08/21 04:00 97.9 F 117 H 119 H 20 128/73 95 12/08/21 03:30 113 H 122/66 96 12/08/21 03:12 116 H 113/63 95 12/08/21 03:00 109 H 113/63 96 12/08/21 02:30 121 H 129/68 94 12/08/21 02:00 114 H 122/64 96 12/08/21 01:30 116 H 113/60 94 12/08/21 01:00 121 H 116/60 94 12/08/21 00:30 121 H 122/60 93 12/08/21 00:00 98.4 F 118 H 116 H 18 108/52 94 12/07/21 23:45 119 H 112/55 94 02/20/22 23:30 117 H 112/55 93 12/07/21 23:14 117 H 122/58 93 12/07/21 23:00 119 H 122/58 93 12/07/21 22:30 115 H 126/62 93 12/07/21 22:00 121 H 130/63 93 12/07/21 21:30 125 H 133/66 93 12/07/21 21:00 122 H 130/69 93 12/07/21 20:30 121 H 129/65 93 12/07/21 20:00 100.3 F H 120 H 120 H 19 139/72 90 12/07/21 19:51 121 H 140/76 91 12/07/21 19:30 119 H 139/76 91 12/07/21 19:00 117 H 139/76 91 12/07/21 18:30 115 H 140/74 90 12/07/21 18:00 102 H 120/72 91 12/07/21 17:30 123 H 134/87 91 12/07/21 17:07 99.2 F 12/07/21 17:00 115 H 138/70 93 12/07/21 16:30 113 H 132/70 94 12/07/21 16:00 117 H 103 H 18 138/71 94 12/07/21 15:30 116 H 114/57 91 12/07/21 15:19 114 H 128/67 96 12/07/21 15:00 117 H 127/59 97 12/07/21 14:30 115 H 128/67 96 12/07/21 14:00 121 H 132/71 96 12/07/21 13:30 113 H 137/70 95 12/07/21 13:00 107 H 119/63 96 12/07/21 12:30 105 H 125/61 96 - Physical Examination General: Cachectic, Other (Unresponsive, intubated, on the vent) HEENT: Positive: Other (Pupils nonreactive) Neck: Positive: neck supple Cardiac: Positive: Irregularly Regular Lungs: Positive: clear to auscultation Neuro: Positive: Other (Unresponsive, intubated on the vent) Abdomen: Positive: Soft Skin: Positive: Clear Extremities: Absent: edema - Labs and Meds Lipids 12/08/21 Range/Units 04:00 Triglycerides 112 (2-149) mg/dL CBC 12/08/21 Range/Units 04:00 WBC 14.6 H (4.5-11.0) K/mm3 RBC 2.91 L (3.65-5.03) M/mm3 Hgb 8.9 L (10.1-14.3) gm/dl Hct 25.6 L (30.3-42.9) % Plt Count 202 (140-440) K/mm3 Comprehensive Metabolic Panel 12/08/21 Range/Units 04:00 Sodium 138 (137-145) mmol/L Potassium 4.3 (3.6-5.0) mmol/L Chloride 96.3 L (98-107) mmol/L Carbon Dioxide 23 (22-30) mmol/L BUN 80 H (7-17) mg/dL Creatinine 6.4 H (0.6-1.2) mg/dL Glucose 223 H (65-100) mg/dL Calcium 9.5 (8.4-10.2) mg/dL - Allied health notes Allied health notes reviewed: RT
--- NOTE | 2021-12-08 12:31 | Progress Note ---
Assessment and Plan Acute Hypoxemic Respiratory Failure s/p MVS Pulmonary Edema Vs Pneumonia Severe Sepsis Pneumonia Leukocytosis-improved Lactic Acidosis/Metabolic acidosis Acute Kidney Injury(RAYNE) Hypokalemia Acute Metabolic Acidosis Hypertension Elevated BNP Elevated troponin Elevated D-dimer Type 2 Diabetes mellitus - discontinue martin catheter - 1 liter pulled during HD/UF; continue per nephrology prescription - discontinue martin catheter - continue Cefepime X 5 total days per ID recommendations - reduced set rate to 12/min - get ABG and addres - continue care as below otherwise; - continue daily SAT and SBT assessment as tolerated - continue to wean supplemental oxygen for target O2 sat's > 90% acutely - VAP bundle addressed - continue lung protective strategies - continue bronchodilators with pulmonary hygiene per RT - wean per pulmonary driven protocols otherwise - avoid nephrotoxins, renally dose all medications - continue accuchecks with glycemic control per SSI (While critically ill target blood glucose of 140-180 mg/dL; avoid hypoglycemia) - sedation prn for target RASS 0 to -1 - continue to avoid benzodiazepine's, reduce the possibility of delirium - AB's per ID rec's - prn analgesia per CPOT score - Maintenance of sleep-wake cycle, avoid delirium - continue enteral nutritional support at goal rate as tolerated - G.I. & VTE prophylaxis - PT/OT/ROM exercises - continue mobility protocols for pressure ulcer prophylaxis - Monitor hemodynamics closely - continue other care per attending / other consultants - discharge planning ongoing concurrently COVID SPECIFIC INTERVENTIONS - COVID-19 PCR negative .... Re-evaluate in am & prn CONDITION: CRITICAL PROGNOSIS: GUARDED CODE STATUS: FULL CODE The high probability of a clinically significant, sudden or life-threatening deterioration of the [respiratory, cardiovascular, renal & neurologic] system(s) required my full and direct attention, intervention and personal management. The aggregate critical care time was [36] minutes without overlap. Time includes spent on; [x] Data Review and interpretation [x] Patient assessment and monitoring of vital signs [x] Documentation [x] Medication orders and management Subjective Date of service: 12/08/21 Principal diagnosis: AHRF; Pulm Edema;Pneumonia; Sepsis; Met. acidosis; Acute Kidney Injury; HTN Interval history: Patient is seen today for: Acute Hypoxemic Respiratory Failure on MVS; Pulm Edema Vs Pneumonia; Severe Sepsis; Metabolic acidosis; Acute Kidney Injury; HTN; DM II Seen and examined at bedside; 24hour events reviewed; nursing and respiratory care staff consulted; no adverse overnight events reported to me; resting peacefully in bed; remains on MVS; Dialysis ongoing but BP a little soft towards the end of the session; no emesis or overt aspiration Objective Vital Signs - 12hr 12/08/21 12/08/21 12/08/21 00:30 01:00 01:30 Temperature Pulse Rate 121 H 121 H 116 H Pulse Rate [ From Monitor] Respiratory Rate Blood Pressure 122/60 116/60 113/60 O2 Sat by Pulse 93 94 94 Oximetry 12/08/21 12/08/21 12/08/21 02:00 02:30 03:00 Temperature Pulse Rate 114 H 121 H 109 H Pulse Rate [ From Monitor] Respiratory Rate Blood Pressure 122/64 129/68 113/63 O2 Sat by Pulse 96 94 96 Oximetry 12/08/21 12/08/21 12/08/21 03:12 03:30 04:00 Temperature 97.9 F Pulse Rate 116 H 113 H 117 H Pulse Rate [ 119 H From Monitor] Respiratory 20 Rate Blood Pressure 113/63 122/66 128/73 O2 Sat by Pulse 95 96 95 Oximetry 12/08/21 12/08/21 12/08/21 04:30 05:00 05:30 Temperature Pulse Rate 120 H 110 H 120 H Pulse Rate [ From Monitor] Respiratory Rate Blood Pressure 135/68 112/60 126/69 O2 Sat by Pulse 95 96 94 Oximetry 12/08/21 12/08/21 12/08/21 06:00 06:30 07:00 Temperature Pulse Rate 119 H 113 H 109 H Pulse Rate [ From Monitor] Respiratory Rate Blood Pressure 127/67 122/64 118/64 O2 Sat by Pulse 94 98 98 Oximetry 12/08/21 12/08/21 12/08/21 07:30 07:33 08:00 Temperature 98 F Pulse Rate 115 H 114 H 118 H Pulse Rate [ 119 H From Monitor] Respiratory 20 Rate Blood Pressure 118/64 128/65 137/77 O2 Sat by Pulse 98 98 95 Oximetry 12/08/21 12/08/21 12/08/21 08:30 09:00 09:30 Temperature Pulse Rate 119 H 120 H 120 H Pulse Rate [ From Monitor] Respiratory Rate Blood Pressure 137/77 135/74 141/71 O2 Sat by Pulse 97 97 97 Oximetry 12/08/21 12/08/21 12/08/21 10:00 10:30 11:00 Temperature Pulse Rate 118 H 120 H 130 H Pulse Rate [ From Monitor] Respiratory Rate Blood Pressure 138/75 143/77 148/73 O2 Sat by Pulse 97 98 96 Oximetry 12/08/21 12/08/21 12/08/21 11:21 11:30 12:00 Temperature 98.5 F Pulse Rate 121 H 108 H Pulse Rate [ From Monitor] Respiratory Rate Blood Pressure 113/63 120/69 O2 Sat by Pulse 97 98 Oximetry Constitutional: no acute distress, other (elderly lady without significant ventilator dyssynchrony at rest) Eyes: non-icteric ENT: oropharynx moist, other (ETT 23 cm CIARAN) Neck: supple, no JVD Effort: mildly labored Ascultation: Bilateral: rhonchi Percussion: Bilateral: not dull Cardiovascular: regular rate and rhythm Gastrointestinal: normoactive bowel sounds, soft, non-tender, non-distended Integumentary: rash Extremities: no cyanosis, pulses normal, no ischemia or petechiae Neurologic: pupils equal and round, unable to assess Psychiatric: other (unable to assess re: AMS) CBC and BMP: 12/08/21 04:00 12/08/21 04:00 ABG, PT/INR, D-dimer: ABG ABG pH 7.511 pH Units (7.350-7.450) H 12/08/21 04:10 ABG pCO2 31.6 mm Hg 12/08/21 04:10 ABG pO2 77.8 mm Hg (80.0-90.0) L 12/08/21 04:10 ABG O2 Saturation 97.0 % (95.0-99.0) 12/08/21 04:10 PT/INR, D-dimer PT 15.9 Sec. (12.2-14.9) H 12/02/21 01:24 INR 1.15 (0.87-1.13) H 12/02/21 01:24 D-Dimer 1461.68 ng/mlDDU (0-234) H 12/02/21 04:18 Abnormal lab findings: Abnormal Labs 12/02/21 12/02/21 12/02/21 00:52 00:52 01:24 WBC 15.4 H RBC Hgb Hct MCHC RDW 15.8 H Lymph % (Auto) 6.3 L Mer[place] % (Auto) 11.7 H Lymph # (Auto) 1.0 L [place] # (Auto) 1.8 H Seg Neutrophils % 81.8 H Lymphocytes % (Manual) Seg Neutrophils # 12.6 H Lymphocytes # (Manual) PT INR D-Dimer ABG pH ABG pO2 ABG HCO3 ABG O2 Saturation ABG Base Excess ABG Hemoglobin VBG pH Oxyhemoglobin Sodium Potassium Chloride Carbon Dioxide BUN Creatinine Glucose POC Glucose Lactic Acid Calcium Phosphorus Magnesium AST ALT Lactate Dehydrogenase Total Creatine Kinase CK-MB (CK-2) CK-MB (CK-2) Rel Index Troponin T C-Reactive Protein NT-Pro-B Natriuret Pep Triglycerides HDL Cholesterol Urine WBC (Auto) 27.0 H Urine Creatinine 24.4 H Urine Total Protein 111 H 12/02/21 12/02/21 12/02/21 01:24 01:24 01:24 WBC RBC Hgb Hct MCHC RDW Lymph % (Auto) Mer[place] % (Auto) Lymph # (Auto) [place] # (Auto) Seg Neutrophils % Lymphocytes % (Manual) Seg Neutrophils # Lymphocytes # (Manual) PT 15.9 H INR 1.15 H D-Dimer ABG pH ABG pO2 ABG HCO3 ABG O2 Saturation ABG Base Excess ABG Hemoglobin VBG pH Oxyhemoglobin Sodium Potassium 3.5 L Chloride Carbon Dioxide 4 L* BUN 43 H Creatinine 5.1 H Glucose 239 H POC Glucose Lactic Acid 15.70 H* Calcium Phosphorus Magnesium AST 86 H ALT 69 H Lactate Dehydrogenase Total Creatine Kinase 254 H CK-MB (CK-2) 20.2 H CK-MB (CK-2) Rel Index 7.9 H Troponin T C-Reactive Protein NT-Pro-B Natriuret Pep Triglycerides HDL Cholesterol Urine WBC (Auto) Urine Creatinine Urine Total Protein 12/02/21 12/02/21 12/02/21 01:24 01:24 04:18 WBC RBC Hgb Hct MCHC RDW Lymph % (Auto) [place] % (Auto) Lymph # (Auto) [place] # (Auto) Seg Neutrophils % Lymphocytes % (Manual) Seg Neutrophils # Lymphocytes # (Manual) PT INR D-Dimer 1461.68 H ABG pH ABG pO2 ABG HCO3 ABG O2 Saturation ABG Base Excess ABG Hemoglobin VBG pH 7.167 L* Oxyhemoglobin Sodium Potassium Chloride Carbon Dioxide BUN Creatinine Glucose POC Glucose Lactic Acid Calcium Phosphorus Magnesium AST ALT Lactate Dehydrogenase Total Creatine Kinase CK-MB (CK-2) CK-MB (CK-2) Rel Index Troponin T 2.600 H* C-Reactive Protein NT-Pro-B Natriuret Pep > 3500 H Triglycerides HDL Cholesterol 74 H Urine WBC (Auto) Urine Creatinine Urine Total Protein 12/02/21 12/02/21 12/02/21 04:18 04:18 10:47 WBC RBC Hgb Hct MCHC RDW Lymph % (Auto) [place] % (Auto) Lymph # (Auto) [place] # (Auto) Seg Neutrophils % Lymphocytes % (Manual) Seg Neutrophils # Lymphocytes # (Manual) PT INR D-Dimer ABG pH ABG pO2 ABG HCO3 ABG O2 Saturation ABG Base Excess ABG Hemoglobin VBG pH Oxyhemoglobin Sodium Potassium Chloride Carbon Dioxide 7 L* BUN 51 H Creatinine 5.9 H Glucose 255 H 224 H POC Glucose Lactic Acid 15.40 H* Calcium Phosphorus Magnesium AST ALT Lactate Dehydrogenase 958 H Total Creatine Kinase CK-MB (CK-2) CK-MB (CK-2) Rel Index Troponin T C-Reactive Protein 6.60 H NT-Pro-B Natriuret Pep Triglycerides HDL Cholesterol Urine WBC (Auto) Urine Creatinine Urine Total Protein 12/02/21 12/02/21 12/02/21 10:53 13:51 13:51 WBC RBC Hgb Hct MCHC RDW Lymph % (Auto) Merrick % (Auto) Lymph # (Auto) [place] # (Auto) Seg Neutrophils % Lymphocytes % (Manual) Seg Neutrophils # Lymphocytes # (Manual) PT INR D-Dimer ABG pH ABG pO2 ABG HCO3 ABG O2 Saturation ABG Base Excess ABG Hemoglobin VBG pH Oxyhemoglobin Sodium Potassium Chloride Carbon Dioxide BUN Creatinine Glucose POC Glucose 194 H Lactic Acid 11.70 H* Calcium Phosphorus Magnesium AST ALT Lactate Dehydrogenase Total Creatine Kinase CK-MB (CK-2) CK-MB (CK-2) Rel Index Troponin T 2.500 H* C-Reactive Protein NT-Pro-B Natriuret Pep Triglycerides HDL Cholesterol Urine WBC (Auto) Urine Creatinine Urine Total Protein 12/02/21 12/02/21 12/02/21 20:31 22:56 22:56 WBC RBC Hgb Hct MCHC RDW Lymph % (Auto) [place]rick % (Auto) Lymph # (Auto) [place] # (Auto) Seg Neutrophils % Lymphocytes % (Manual) Seg Neutrophils # Lymphocytes # (Manual) PT INR D-Dimer ABG pH ABG pO2 156.2 H ABG HCO3 15.4 L ABG O2 Saturation ABG Base Excess -8.7 L ABG Hemoglobin VBG pH Oxyhemoglobin Sodium 147 H Potassium 3.4 L Chloride Carbon Dioxide 18 L D BUN 59 H Creatinine 6.2 H Glucose 150 H POC Glucose Lactic Acid 6.10 H* Calcium 8.3 L Phosphorus Magnesium AST ALT Lactate Dehydrogenase Total Creatine Kinase CK-MB (CK-2) CK-MB (CK-2) Rel Index Troponin T C-Reactive Protein NT-Pro-B Natriuret Pep Triglycerides HDL Cholesterol Urine WBC (Auto) Urine Creatinine Urine Total Protein 12/03/21 12/03/21 12/03/21 00:25 00:42 04:00 WBC RBC Hgb Hct MCHC RDW 15.4 H Lymph % (Auto) [place] % (Auto) Lymph # (Auto) [place] # (Auto) Seg Neutrophils % Lymphocytes % (Manual) 7.0 L Seg Neutrophils # Lymphocytes # (Manual) 0.4 L PT INR D-Dimer ABG pH ABG pO2 ABG HCO3 ABG O2 Saturation ABG Base Excess ABG Hemoglobin VBG pH Oxyhemoglobin Sodium Potassium Chloride Carbon Dioxide BUN Creatinine Glucose POC Glucose 150 H Lactic Acid 5.80 H* Calcium Phosphorus Magnesium AST ALT Lactate Dehydrogenase Total Creatine Kinase CK-MB (CK-2) CK-MB (CK-2) Rel Index Troponin T C-Reactive Protein NT-Pro-B Natriuret Pep Triglycerides HDL Cholesterol Urine WBC (Auto) Urine Creatinine Urine Total Protein 12/03/21 12/03/21 12/03/21 04:00 06:14 08:35 WBC RBC Hgb Hct MCHC RDW Lymph % (Auto) Merrick % (Auto) Lymph # (Auto) [place] # (Auto) Seg Neutrophils % Lymphocytes % (Manual) Seg Neutrophils # Lymphocytes # (Manual) PT INR D-Dimer ABG pH 7.533 H ABG pO2 120.9 H ABG HCO3 ABG O2 Saturation ABG Base Excess ABG Hemoglobin 11.9 L VBG pH Oxyhemoglobin Sodium Potassium 3.5 L Chloride Carbon Dioxide 21 L BUN 63 H Creatinine 6.3 H Glucose 158 H POC Glucose 145 H Lactic Acid Calcium 7.9 L Phosphorus Magnesium AST ALT Lactate Dehydrogenase Total Creatine Kinase CK-MB (CK-2) CK-MB (CK-2) Rel Index Troponin T C-Reactive Protein NT-Pro-B Natriuret Pep Triglycerides HDL Cholesterol Urine WBC (Auto) Urine Creatinine Urine Total Protein 12/03/21 12/03/21 12/03/21 12:35 13:48 15:51 WBC RBC Hgb Hct MCHC RDW Lymph % (Auto) [place] % (Auto) Lymph # (Auto) [place] # (Auto) Seg Neutrophils % Lymphocytes % (Manual) Seg Neutrophils # Lymphocytes # (Manual) PT INR D-Dimer ABG pH ABG pO2 ABG HCO3 ABG O2 Saturation ABG Base Excess ABG Hemoglobin VBG pH Oxyhemoglobin Sodium Potassium Chloride Carbon Dioxide BUN Creatinine Glucose POC Glucose 151 H 168 H Lactic Acid Calcium Phosphorus Magnesium AST ALT Lactate Dehydrogenase Total Creatine Kinase CK-MB (CK-2) CK-MB (CK-2) Rel Index Troponin T C-Reactive Protein NT-Pro-B Natriuret Pep Triglycerides HDL Cholesterol Urine WBC (Auto) 9.0 H Urine Creatinine Urine Total Protein 12/03/21 12/03/21 12/03/21 16:20 16:35 23:21 WBC RBC Hgb Hct MCHC RDW Lymph % (Auto) [place] % (Auto) Lymph # (Auto) [place] # (Auto) Seg Neutrophils % Lymphocytes % (Manual) Seg Neutrophils # Lymphocytes # (Manual) PT INR D-Dimer ABG pH ABG pO2 ABG HCO3 ABG O2 Saturation ABG Base Excess ABG Hemoglobin VBG pH Oxyhemoglobin Sodium Potassium Chloride 92.3 L Carbon Dioxide BUN 67 H Creatinine 7.1 H Glucose 160 H POC Glucose 158 H 161 H Lactic Acid Calcium 7.3 L Phosphorus Magnesium AST ALT Lactate Dehydrogenase Total Creatine Kinase CK-MB (CK-2) CK-MB (CK-2) Rel Index Troponin T C-Reactive Protein NT-Pro-B Natriuret Pep Triglycerides HDL Cholesterol Urine WBC (Auto) Urine Creatinine Urine Total Protein 12/04/21 12/04/21 12/04/21 04:18 04:18 04:18 WBC RBC 3.29 L Hgb 10.0 L Hct 28.4 L D MCHC 35 H RDW 15.4 H Lymph % (Auto) [place]rick % (Auto) Lymph # (Auto) [place] # (Auto) Seg Neutrophils % Lymphocytes % (Manual) Seg Neutrophils # Lymphocytes # (Manual) PT INR D-Dimer ABG pH ABG pO2 ABG HCO3 ABG O2 Saturation ABG Base Excess ABG Hemoglobin VBG pH Oxyhemoglobin Sodium Potassium 3.5 L Chloride 91.5 L Carbon Dioxide 33 H D BUN 74 H Creatinine 7.5 H Glucose 155 H POC Glucose Lactic Acid 4.60 H* Calcium 7.2 L Phosphorus 4.60 H Magnesium AST ALT Lactate Dehydrogenase Total Creatine Kinase CK-MB (CK-2) CK-MB (CK-2) Rel Index Troponin T C-Reactive Protein NT-Pro-B Natriuret Pep Triglycerides HDL Cholesterol Urine WBC (Auto) Urine Creatinine Urine Total Protein 12/04/21 12/04/21 12/04/21 10:29 11:08 15:46 WBC RBC Hgb Hct MCHC RDW Lymph % (Auto) [place] % (Auto) Lymph # (Auto) [place] # (Auto) Seg Neutrophils % Lymphocytes % (Manual) Seg Neutrophils # Lymphocytes # (Manual) PT INR D-Dimer ABG pH 7.504 H ABG pO2 40.8 L ABG HCO3 30.1 H ABG O2 Saturation 75.1 L ABG Base Excess 6.6 H ABG Hemoglobin 10.2 L VBG pH Oxyhemoglobin 73.7 L Sodium Potassium Chloride Carbon Dioxide BUN Creatinine Glucose POC Glucose 146 H 155 H Lactic Acid Calcium Phosphorus Magnesium AST ALT Lactate Dehydrogenase Total Creatine Kinase CK-MB (CK-2) CK-MB (CK-2) Rel Index Troponin T C-Reactive Protein NT-Pro-B Natriuret Pep Triglycerides HDL Cholesterol Urine WBC (Auto) Urine Creatinine Urine Total Protein 12/04/21 12/05/21 12/05/21 23:30 04:22 04:22 WBC 12.7 H RBC 3.33 L Hgb 9.6 L Hct 29.3 L MCHC RDW 15.5 H Lymph % (Auto) [place] % (Auto) Lymph # (Auto) [place] # (Auto) Seg Neutrophils % Lymphocytes % (Manual) Seg Neutrophils # Lymphocytes # (Manual) PT INR D-Dimer ABG pH ABG pO2 ABG HCO3 ABG O2 Saturation ABG Base Excess ABG Hemoglobin VBG pH Oxyhemoglobin Sodium Potassium Chloride 90.3 L Carbon Dioxide BUN 89 H Creatinine 8.8 H Glucose 216 H POC Glucose 183 H Lactic Acid Calcium 8.0 L Phosphorus 4.60 H Magnesium AST ALT Lactate Dehydrogenase Total Creatine Kinase CK-MB (CK-2) CK-MB (CK-2) Rel Index Troponin T C-Reactive Protein NT-Pro-B Natriuret Pep Triglycerides 280 H HDL Cholesterol Urine WBC (Auto) Urine Creatinine Urine Total Protein 12/05/21 12/05/21 12/05/21 10:15 10:54 11:57 WBC RBC Hgb Hct MCHC RDW Lymph % (Auto) [place] % (Auto) Lymph # (Auto) [place] # (Auto) Seg Neutrophils % Lymphocytes % (Manual) Seg Neutrophils # Lymphocytes # (Manual) PT INR D-Dimer ABG pH 7.518 H ABG pO2 43.4 L ABG HCO3 28.8 H ABG O2 Saturation 78.6 L ABG Base Excess 5.6 H ABG Hemoglobin 8.4 L VBG pH Oxyhemoglobin 77.1 L Sodium Potassium Chloride Carbon Dioxide BUN Creatinine Glucose POC Glucose 187 H 196 H Lactic Acid Calcium Phosphorus Magnesium AST ALT Lactate Dehydrogenase Total Creatine Kinase CK-MB (CK-2) CK-MB (CK-2) Rel Index Troponin T C-Reactive Protein NT-Pro-B Natriuret Pep Triglycerides HDL Cholesterol Urine WBC (Auto) Urine Creatinine Urine Total Protein 12/05/21 12/05/21 12/05/21 16:34 18:02 23:39 WBC RBC Hgb Hct MCHC RDW Lymph % (Auto) [place] % (Auto) Lymph # (Auto) [place] # (Auto) Seg Neutrophils % Lymphocytes % (Manual) Seg Neutrophils # Lymphocytes # (Manual) PT INR D-Dimer ABG pH ABG pO2 ABG HCO3 ABG O2 Saturation ABG Base Excess ABG Hemoglobin VBG pH Oxyhemoglobin Sodium Potassium Chloride Carbon Dioxide BUN Creatinine Glucose POC Glucose 178 H 167 H 235 H Lactic Acid Calcium Phosphorus Magnesium AST ALT Lactate Dehydrogenase Total Creatine Kinase CK-MB (CK-2) CK-MB (CK-2) Rel Index Troponin T C-Reactive Protein NT-Pro-B Natriuret Pep Triglycerides HDL Cholesterol Urine WBC (Auto) Urine Creatinine Urine Total Protein 12/06/21 12/06/21 12/06/21 04:35 04:35 05:37 WBC 11.8 H RBC 2.99 L Hgb 8.9 L Hct 26.1 L MCHC RDW Lymph % (Auto) [place] % (Auto) Lymph # (Auto) [place] # (Auto) Seg Neutrophils % Lymphocytes % (Manual) Seg Neutrophils # Lymphocytes # (Manual) PT INR D-Dimer ABG pH ABG pO2 ABG HCO3 ABG O2 Saturation ABG Base Excess ABG Hemoglobin VBG pH Oxyhemoglobin Sodium Potassium Chloride 95.0 L Carbon Dioxide BUN 59 H Creatinine 6.3 H Glucose 244 H POC Glucose 251 H Lactic Acid Calcium Phosphorus Magnesium AST ALT Lactate Dehydrogenase Total Creatine Kinase CK-MB (CK-2) CK-MB (CK-2) Rel Index Troponin T C-Reactive Protein NT-Pro-B Natriuret Pep Triglycerides HDL Cholesterol Urine WBC (Auto) Urine Creatinine Urine Total Protein 12/06/21 12/06/21 12/06/21 06:05 11:45 17:19 WBC RBC Hgb Hct MCHC RDW Lymph % (Auto) [place] % (Auto) Lymph # (Auto) [place] # (Auto) Seg Neutrophils % Lymphocytes % (Manual) Seg Neutrophils # Lymphocytes # (Manual) PT INR D-Dimer ABG pH 7.555 H ABG pO2 95.3 H ABG HCO3 27.3 H ABG O2 Saturation ABG Base Excess 4.9 H ABG Hemoglobin 9.0 L VBG pH Oxyhemoglobin Sodium Potassium Chloride Carbon Dioxide BUN Creatinine Glucose POC Glucose 249 H 187 H Lactic Acid Calcium Phosphorus Magnesium AST ALT Lactate Dehydrogenase Total Creatine Kinase CK-MB (CK-2) CK-MB (CK-2) Rel Index Troponin T C-Reactive Protein NT-Pro-B Natriuret Pep Triglycerides HDL Cholesterol Urine WBC (Auto) Urine Creatinine Urine Total Protein 12/06/21 12/07/21 12/07/21 23:24 04:00 04:00 WBC RBC 3.10 L Hgb 8.8 L Hct 27.5 L MCHC RDW 15.8 H Lymph % (Auto) [place] % (Auto) Lymph # (Auto) [place] # (Auto) Seg Neutrophils % Lymphocytes % (Manual) Seg Neutrophils # Lymphocytes # (Manual) PT INR D-Dimer ABG pH ABG pO2 ABG HCO3 ABG O2 Saturation ABG Base Excess ABG Hemoglobin VBG pH Oxyhemoglobin Sodium Potassium Chloride Carbon Dioxide BUN 50 H Creatinine 5.5 H Glucose 248 H POC Glucose 233 H Lactic Acid Calcium Phosphorus Magnesium AST ALT Lactate Dehydrogenase Total Creatine Kinase CK-MB (CK-2) CK-MB (CK-2) Rel Index Troponin T C-Reactive Protein NT-Pro-B Natriuret Pep Triglycerides HDL Cholesterol Urine WBC (Auto) Urine Creatinine Urine Total Protein 12/07/21 12/07/21 12/07/21 04:55 05:40 10:49 WBC RBC Hgb Hct MCHC RDW Lymph % (Auto) [place] % (Auto) Lymph # (Auto) [place] # (Auto) Seg Neutrophils % Lymphocytes % (Manual) Seg Neutrophils # Lymphocytes # (Manual) PT INR D-Dimer ABG pH 7.519 H ABG pO2 65.4 L ABG HCO3 27.1 H ABG O2 Saturation ABG Base Excess 4.1 H ABG Hemoglobin 8.3 L VBG pH Oxyhemoglobin 94.9 L Sodium Potassium Chloride Carbon Dioxide BUN Creatinine Glucose POC Glucose 230 H 215 H Lactic Acid Calcium Phosphorus Magnesium AST ALT Lactate Dehydrogenase Total Creatine Kinase CK-MB (CK-2) CK-MB (CK-2) Rel Index Troponin T C-Reactive Protein NT-Pro-B Natriuret Pep Triglycerides HDL Cholesterol Urine WBC (Auto) Urine Creatinine Urine Total Protein 12/07/21 12/07/21 12/08/21 15:53 23:33 04:00 WBC 14.6 H RBC 2.91 L Hgb 8.9 L Hct 25.6 L MCHC 35 H RDW 15.6 H Lymph % (Auto) [place] % (Auto) Lymph # (Auto) [place] # (Auto) Seg Neutrophils % Lymphocytes % (Manual) Seg Neutrophils # Lymphocytes # (Manual) PT INR D-Dimer ABG pH ABG pO2 ABG HCO3 ABG O2 Saturation ABG Base Excess ABG Hemoglobin VBG pH Oxyhemoglobin Sodium Potassium Chloride Carbon Dioxide BUN Creatinine Glucose POC Glucose 167 H 206 H Lactic Acid Calcium Phosphorus Magnesium AST ALT Lactate Dehydrogenase Total Creatine Kinase CK-MB (CK-2) CK-MB (CK-2) Rel Index Troponin T C-Reactive Protein NT-Pro-B Natriuret Pep Triglycerides HDL Cholesterol Urine WBC (Auto) Urine Creatinine Urine Total Protein 12/08/21 12/08/21 12/08/21 04:00 04:10 05:15 WBC RBC Hgb Hct MCHC RDW Lymph % (Auto) [place] % (Auto) Lymph # (Auto) [place] # (Auto) Seg Neutrophils % Lymphocytes % (Manual) Seg Neutrophils # Lymphocytes # (Manual) PT INR D-Dimer ABG pH 7.511 H ABG pO2 77.8 L ABG HCO3 ABG O2 Saturation ABG Base Excess ABG Hemoglobin 9.0 L VBG pH Oxyhemoglobin Sodium Potassium Chloride 96.3 L Carbon Dioxide BUN 80 H Creatinine 6.4 H Glucose 223 H POC Glucose 193 H Lactic Acid Calcium Phosphorus Magnesium 2.50 H AST ALT Lactate Dehydrogenase Total Creatine Kinase CK-MB (CK-2) CK-MB (CK-2) Rel Index Troponin T C-Reactive Protein NT-Pro-B Natriuret Pep Triglycerides HDL Cholesterol Urine WBC (Auto) Urine Creatinine Urine Total Protein 12/08/21 11:29 WBC RBC Hgb Hct MCHC RDW Lymph % (Auto) [place] % (Auto) Lymph # (Auto) [place] # (Auto) Seg Neutrophils % Lymphocytes % (Manual) Seg Neutrophils # Lymphocytes # (Manual) PT INR D-Dimer ABG pH ABG pO2 ABG HCO3 ABG O2 Saturation ABG Base Excess ABG Hemoglobin VBG pH Oxyhemoglobin Sodium Potassium Chloride Carbon Dioxide BUN Creatinine Glucose POC Glucose 202 H Lactic Acid Calcium Phosphorus Magnesium AST ALT Lactate Dehydrogenase Total Creatine Kinase CK-MB (CK-2) CK-MB (CK-2) Rel Index Troponin T C-Reactive Protein NT-Pro-B Natriuret Pep Triglycerides HDL Cholesterol Urine WBC (Auto) Urine Creatinine Urine Total Protein Chest x-ray: image reviewed (bilateral R>L infiltrates but improving) Allied health notes reviewed: nursing
[2021-12-08] MEDS: METOPROLOL TARTRATE 25 MG TAB PO SCH (14:35)
[2021-12-08] MEDS: CILOSTAZOL 100 MG TAB PO SCH ×2 (14:36→22:28)
[2021-12-08] MEDS: ASPIRIN 81 MG TAB CHEW PO SCH (14:36)
[2021-12-08] MEDS: FAMOTIDINE 10 MG TAB PO SCH ×2 (14:36→22:29)
[2021-12-08] MEDS: CLOPIDOGREL 75 MG TAB PO SCH (14:36)
[2021-12-08] MEDS: SENNOSIDES/DOCUSATE SODIUM 8.6/50 MG TAB FEEDTUBE SCH ×2 (14:36→22:28)
--- NOTE | 2021-12-08 17:15 | Progress Note ---
Assessment and Plan Cultures: 12/02/2021 blood culture: no growth COVID-19 PCR: negative 12/02/2021 sputum culture: Usual respiratory mahesh 12/02/2021 urine culture: no growth A/P: 86-year-old female with hypertension, diabetes, peripheral vascular disease, prior right AKA admitted with shortness of breath: #Severe sepsis, secondary to pneumonia v/s fluid overload, acute respiratory failure: on the vent. #Severe metabolic acidosis, lactic acidosis #Acute renal failure: Renally adjust antibiotics. Planned for HD. #Acute encephalopathy: Likely metabolic. Recs: -Continue renally adjusted IV cefepime, complete 5 days Sadia Flynn MD [facility] ([facility] O: [phone] F: [phone] Subjective Date of service: 12/08/21 Principal diagnosis: AHRF; Pulm Edema;Pneumonia; Sepsis; Met. acidosis; Acute Kidney Injury; HTN Interval history: Afebrile overnight, white count 14.6. Cultures remain negative. Imaging personally reviewed: Chest x-ray: Improving airspace disease Objective - Exam Narrative Exam: Physical Exam: Constitutional: sedated, intubated, on the vent Head, Ears, Nose: Normocephalic, atraumatic. External ears, nose normal Eyes: Conjunctivae/corneas clear. No icterus. No ptosis. Neck: intubated Oral: intubated Cardiovascular: S1, S2 + Respiratory: AE fair bilaterally and equal GI: Soft, bowel sounds hypo Musculoskeletal: No pedal edema, no cyanosis. R AKA well healed Skin: No rash or abscess Hem/Lymphatic: No palpable cervical or supraclavicular nodes. No lymphangitis Psych: no agitation Neurological: sedated, intubated, on the vent, exam limited - Constitutional Vitals: Vital Signs Temp Pulse Resp BP Pulse Ox 98.5 F 105 H 20 106/60 98 12/08/21 12:00 12/08/21 17:00 12/08/21 16:00 12/08/21 17:00 12/08/21 17:00 Temperature -Last 24 Hours Temperature 98.5 F Temperature 98.0 F Temperature 98 F Temperature 97.9 F Temperature 98.4 F Temperature 100.3 F - Labs CBC & Chem 7: 12/08/21 04:00 12/08/21 04:00 Labs: Abnormal lab results 12/07/21 12/08/21 12/08/21 Range/Units 23:33 04:00 04:00 WBC 14.6 H (4.5-11.0) K/mm3 RBC 2.91 L (3.65-5.03) M/mm3 Hgb 8.9 L (10.1-14.3) gm/dl Hct 25.6 L (30.3-42.9) % MCHC 35 H (30-34) % RDW 15.6 H (13.2-15.2) % ABG pH (7.350-7.450) pH Units ABG pO2 (80.0-90.0) mm Hg ABG Hemoglobin (12.0-16.0) gm/dl Chloride 96.3 L (98-107) mmol/L BUN 80 H (7-17) mg/dL Creatinine 6.4 H (0.6-1.2) mg/dL Glucose 223 H (65-100) mg/dL POC Glucose 206 H (70-105) mg/dL Magnesium 2.50 H (1.7-2.3) mg/dL 12/08/21 12/08/21 12/08/21 Range/Units 04:10 05:15 11:29 WBC (4.5-11.0) K/mm3 RBC (3.65-5.03) M/mm3 Hgb (10.1-14.3) gm/dl Hct (30.3-42.9) % MCHC (30-34) % RDW (13.2-15.2) % ABG pH 7.511 H (7.350-7.450) pH Units ABG pO2 77.8 L (80.0-90.0) mm Hg ABG Hemoglobin 9.0 L (12.0-16.0) gm/dl Chloride (98-107) mmol/L BUN (7-17) mg/dL Creatinine (0.6-1.2) mg/dL Glucose (65-100) mg/dL POC Glucose 193 H 202 H (70-105) mg/dL Magnesium (1.7-2.3) mg/dL 12/08/21 Range/Units 16:53 WBC (4.5-11.0) K/mm3 RBC (3.65-5.03) M/mm3 Hgb (10.1-14.3) gm/dl Hct (30.3-42.9) % MCHC (30-34) % RDW (13.2-15.2) % ABG pH (7.350-7.450) pH Units ABG pO2 (80.0-90.0) mm Hg ABG Hemoglobin (12.0-16.0) gm/dl Chloride (98-107) mmol/L BUN (7-17) mg/dL Creatinine (0.6-1.2) mg/dL Glucose (65-100) mg/dL POC Glucose 240 H (70-105) mg/dL Magnesium (1.7-2.3) mg/dL
[2021-12-08] MEDS: CEFEPIME/NS 1 GM/100 ML 1 GM/100 ML BAG IV SCH (17:33)
--- NOTE | 2021-12-08 17:55 | Progress Note ---
Assessment and Plan Assessment and plan: This is a 86-year-old female with HTN, DM, PVD, paroxysmal A. fib right AKA initially admitted to the floor for sepsis, RAYNE, pneumonia who required a code met on 12/02 due to acute hypoxic respiratory failure requiring intubation and ventilatory support and transferred to ICU Assessment and plan Neuro: Acute metabolic encephalopathy -Sedated with propofol -RASS goal 0 to -1 -Seroquel nightly -Xanax as needed -Avoid delirium -Reorientation as needed -Maintain sleep-wake cycle -As needed analgesia Cardiac: Elevated proBNP, NSTEMI, h/o HTN, PVD s/p right AKA, cardiomyopathy, paroxysmal atrial fibrillation -Cardiology consulted, appreciate recommendations -Admit proBNP greater than 2000, troponin 2.0 -Blood pressure monitoring per protocol -Resume home Plavix, Pletal, metoprolol -Echocardiogram shows ejection fraction of 30 to 35% with severely dilated cardiomyopathy -No diuretic therapy due to RAYNE Respiratory: Acute hypoxic respiratory failure -CCM consulted, appreciate recommendations -Intubated on 12/02 with 7.50 ETT at 24 the lips -A.m. vent settings: Rate 14, tidal volume 400, PEEP 6, FiO2 50% -See RT notes for titration -A.m. ABG and CXR noted -VAP bundle -SPO2 monitoring GI: NAD -24 hours +1486 -PPI -NTR consulted for tube feedings -BR: Senokot : Acute kidney injury likely secondary to ATN requiring HD, hypochloremia -Nephrology consulted, appreciate recommendations -Strict intake and output -Renally dose medications -Avoid nephrotoxic medications -Daily weights -S/p Vas-Cath -Initiate hemodialysis on 12/06 -Currently on MWF schedule and as needed per nephrology -Renal ultrasound shows no significant normality ID: Severe sepsis, pneumonia, lactic acidosis -Secondary to pneumonia versus fluid overload with acute respiratory failure and acidosis -Admit CXR with bilateral pulmonary opacities -Infectious disease consulted, appreciate recommendation -Antibiotic therapy with cefepime, complete 5 days -COVID-19 PCR negative -f/u blood culture 12/02 blood culture, sputum culture, urine culture with no growth to date -Monitor WBC and temperature curve Endo: h/o DM type II -Avoid hypoglycemia -SSI -Long-acting insulin, titrate as needed -Accu-Cheks q. 6 Heme: Leukocytosis, anemia -Trend CBC -Epogen per nephrology -Transfuse hemoglobin less than 7 -Monitor for signs of bleeding -SCDs to BLE while in bed The high probability of a clinically significant, sudden or life threatening deterioration of the [multi] system(s) required my full and direct attention, intervention and personal management. The aggregate critical care time was [60] minutes. This time is in addition to time spent performing reported procedures but includes the following: [x] Data Review and interpretation [x] Patient assessment and monitoring of vital signs [x] Documentation [x] Medication orders and management Disposition Plan: icu Total Time Spent with Patient (Minutes): 60 History Interval history: This is a 86-year-old female with HTN, DM, proximal atrial fibrillation right AKA who presented to the emergency department on 12/02 with complaints of shortness of breath ongoing for the past 3 days, productive cough, fever without chills. Patient is medically vaccinated against COVID-19. Recommend emergency department revealed CXR which showed development of bilateral airspace opacities compatible with hepatopulmonary edema, lab work was significant for leukocytosis of 15.4, elevated D-dimer 1461, hypokalemia at 3.5, metabolic acidosis with a CO2 of 4, lactic acidosis at 15.7, elevated proBNP greater than 3500 and elevated troponin of 2.6. Patient was started on antibiotics for possible underlying pneumonia and admitted to the hospital service as a COVID-19 PUI, sepsis with acute renal failure, metabolic acidosis, hypokalemia with co nsults to ID, nephrology and cardiology. Hospital Course to Date: 12/03: Patient remains intubated and sedated. This am ABG noted, continue to wean Fio2 as tolerated. Patient's renal function continue to worsen, patient currently on bcab gtt per Nephrology. Per Nephro plan for possible discussion wi th family, patient might require HD. Acidosis is improving continue bcarb and IV abx per ID, trend lactic acid. 12/04: Overnight events noted, remains ST in the 110s this am, BP stable. Renal function continue to worsen, per nursing staff patient's POA is leaning towards HD. Plan for possible family meeting to further discuss patient's goal of care. This am ABG noted, most likely venous, SPO2 is 100%, tolerating vent. Continue to wean Fio2 as tolerated. 12/05: Family meeting with grandson today at the bedside. Thorough discussion with the attending in regards to patient's current status/condition and overall prognosis. Patient's grandson voiced understanding of the info given, stated that he knows his grandma is older but he would like to give her a fighting chance and want everything done including hemodialysis. Code status was also addressed, patient's POA stated that he would like full resuscitative measures at this time. Patient remains a FULL code. RIJ Vascath inserted, plan for possible HD today per Nephro. 12/06: Patient tolerated first HD treatment yesterday, renal function with some improvement this am. Plan for possible HD again today. Increased agitation overnight, sedation increased, will added low dose Seroquel Qhs. Basal insulin added for hyperglycemia. Continue to wean Fio2 as tolerated per CCM. 12/07: ZANE overnight. Remains on the vent and sedated. Renal function is improving on iHD, still oliguric though. Plan to wean off sedation today or tomorrow if tolerated, possible PST trial in the am. Basal lantus added for hyperglycemia. 12/08: Patient scheduled for hemodialysis today, Palacio catheter will be discontinued and CCM decreased rate with an ABG to be obtained at 1700. Hospitalist Physical - Constitutional Vitals: Temp Pulse Resp BP Pulse Ox 97.9 F 105 H 20 106/60 98 12/08/21 13:50 12/08/21 17:00 12/08/21 16:00 12/08/21 17:00 12/08/21 17:00 General appearance: Present: no acute distress, other (Intubated and Sedated) - EENT Eyes: Present: PERRL, EOM intact ENT: dentition normal - Neck Neck: Present: supple, normal ROM - Respiratory Respiratory effort: normal Respiratory: bilateral: CTA - Cardiovascular Rhythm: regular Heart Sounds: Present: S1 & S2 - Extremities Extremities: no ischemia, pulses intact, pulses symmetrical, normal temperature, normal color Peripheral Pulses: within normal limits - Abdominal General gastrointestinal: soft, non-tender, non-distended, normal bowel sounds - Integumentary Integumentary: Present: warm, dry - Psychiatric Psychiatric: other (sedated) - Neurologic Neurologic: other (sedated,intact cough/gag) - Allied Health Allied health notes reviewed: nursing, RT, social work HEART Score - HEART Score Troponin: Troponin T 2.500 ng/mL (0.00-0.029) H* 12/02/21 13:51 Results - Labs CBC & Chem 7: 12/08/21 04:00 12/08/21 04:00 Labs: Laboratory Last Values WBC 14.6 K/mm3 (4.5-11.0) H 12/08/21 04:00 RBC 2.91 M/mm3 (3.65-5.03) L 12/08/21 04:00 Hgb 8.9 gm/dl (10.1-14.3) L 12/08/21 04:00 Hct 25.6 % (30.3-42.9) L 12/08/21 04:00 MCV 88 fl (79-97) 12/08/21 04:00 MCH 31 pg (28-32) 12/08/21 04:00 MCHC 35 % (30-34) H 12/08/21 04:00 RDW 15.6 % (13.2-15.2) H 12/08/21 04:00 Plt Count 202 K/mm3 (140-440) 12/08/21 04:00 Lymph % (Auto) 6.3 % (13.4-35.0) L 12/02/21 01:24 [place] % (Auto) 11.7 % (0.0-7.3) H 12/02/21 01:24 Eos % (Auto) 0.0 % (0.0-4.3) 12/02/21 01:24 Baso % (Auto) 0.2 % (0.0-1.8) 12/02/21 01:24 Lymph # (Auto) 1.0 K/mm3 (1.2-5.4) L 12/02/21 01:24 [place] # (Auto) 1.8 K/mm3 (0.0-0.8) H 12/02/21 01:24 Eos # (Auto) 0.0 K/mm3 (0.0-0.4) 12/02/21 01:24 Baso # (Auto) 0.0 K/mm3 (0.0-0.1) 12/02/21 01:24 Add Manual Diff Complete 12/03/21 04:00 Total Counted 100 12/03/21 04:00 Seg Neutrophils % 81.8 % (40.0-70.0) H 12/02/21 01:24 Seg Neuts % (Manual) 67.0 % (40.0-70.0) 12/03/21 04:00 Band Neutrophils % 18.0 % 12/03/21 04:00 Lymphocytes % (Manual) 7.0 % (13.4-35.0) L 12/03/21 04:00 Reactive Lymphs % (Man) 0 % 12/03/21 04:00 Monocytes % (Manual) 3.0 % (0.0-7.3) 12/03/21 04:00 Eosinophils % (Manual) 0 % (0.0-4.3) 12/03/21 04:00 Basophils % (Manual) 0 % (0.0-1.8) 12/03/21 04:00 Metamyelocytes % 4.0 % 12/03/21 04:00 Myelocytes % 1.0 % 12/03/21 04:00 Promyelocytes % 0 % 12/03/21 04:00 Blast Cells % 0 % 12/03/21 04:00 Nucleated RBC % Not Reportable 12/03/21 04:00 Seg Neutrophils # 12.6 K/mm3 (1.8-7.7) H 12/02/21 01:24 Seg Neutrophils # Man 4.1 K/mm3 (1.8-7.7) 12/03/21 04:00 Band Neutrophils # 1.1 K/mm3 12/03/21 04:00 Lymphocytes # (Manual) 0.4 K/mm3 (1.2-5.4) L 12/03/21 04:00 Abs React Lymphs (Man) 0.0 K/mm3 12/03/21 04:00 Monocytes # (Manual) 0.2 K/mm3 (0.0-0.8) 12/03/21 04:00 Eosinophils # (Manual) 0.0 K/mm3 (0.0-0.4) 12/03/21 04:00 Basophils # (Manual) 0.0 K/mm3 (0.0-0.1) 12/03/21 04:00 Metamyelocytes # 0.2 K/mm3 12/03/21 04:00 Myelocytes # 0.1 K/mm3 12/03/21 04:00 Promyelocytes # 0.0 K/mm3 12/03/21 04:00 Blast Cells # 0.0 K/mm3 12/03/21 04:00 WBC Morphology Not Reportable 12/03/21 04:00 Hypersegmented Neuts Not Reportable 12/03/21 04:00 Hyposegmented Neuts Not Reportable 12/03/21 04:00 Hypogranular Neuts Not Reportable 12/03/21 04:00 Smudge Cells Not Reportable 12/03/21 04:00 Toxic Granulation Not Reportable 12/03/21 04:00 Toxic Vacuolation Not Reportable 12/03/21 04:00 Dohle Bodies Not Reportable 12/03/21 04:00 Pelger-Huet Anomaly Not Reportable 12/03/21 04:00 Randee Rods Not Reportable 12/03/21 04:00 Platelet Estimate Consistent w auto 12/03/21 04:00 Clumped Platelets Few 12/03/21 04:00 Plt Clumps, EDTA Not Reportable 12/03/21 04:00 Large Platelets Few 12/03/21 04:00 Giant Platelets Not Reportable 12/03/21 04:00 Platelet Satelliting Not Reportable 12/03/21 04:00 Plt Morphology Comment Not Reportable 12/03/21 04:00 RBC Morphology Not Reportable 12/03/21 04:00 Dimorphic RBCs Not Reportable 12/03/21 04:00 Polychromasia Not Reportable 12/03/21 04:00 Hypochromasia Not Reportable 12/03/21 04:00 Poikilocytosis Not Reportable 12/03/21 04:00 Anisocytosis Not Reportable 12/03/21 04:00 Microcytosis Not Reportable 12/03/21 04:00 Macrocytosis Not Reportable 12/03/21 04:00 Spherocytes Not Reportable 12/03/21 04:00 Pappenheimer Bodies Not Reportable 12/03/21 04:00 Sickle Cells Not Reportable 12/03/21 04:00 Target Cells Not Reportable 12/03/21 04:00 Tear Drop Cells Not Reportable 12/03/21 04:00 Ovalocytes Not Reportable 12/03/21 04:00 Helmet Cells Not Reportable 12/03/21 04:00 [place] Bodies Not Reportable 12/03/21 04:00 [place] Rings Not Reportable 12/03/21 04:00 Ania Cells 1+ 12/03/21 04:00 Bite Cells Not Reportable 12/03/21 04:00 Crenated Cell Not Reportable 12/03/21 04:00 Elliptocytes Not Reportable 12/03/21 04:00 Acanthocytes (Spur) Rare 12/03/21 04:00 Rouleaux Not Reportable 12/03/21 04:00 Hemoglobin C Crystals Not Reportable 12/03/21 04:00 Schistocytes Not Reportable 12/03/21 04:00 Malaria parasites Not Reportable 12/03/21 04:00 Josemanuel Bodies Not Reportable 12/03/21 04:00 Hem Pathologist Commnt No 12/03/21 04:00 PT 15.9 Sec. (12.2-14.9) H 12/02/21 01:24 INR 1.15 (0.87-1.13) H 12/02/21 01:24 APTT 31.5 Sec. (24.2-36.6) 12/02/21 01:24 D-Dimer 1461.68 ng/mlDDU (0-234) H 12/02/21 04:18 ABG pH 7.511 pH Units (7.350-7.450) H 12/08/21 04:10 ABG pCO2 31.6 mm Hg 12/08/21 04:10 ABG pO2 77.8 mm Hg (80.0-90.0) L 12/08/21 04:10 ABG HCO3 24.7 mmol/L (20.0-26.0) 12/08/21 04:10 ABG O2 Saturation 97.0 % (95.0-99.0) 12/08/21 04:10 ABG O2 Content 12.1 (0.0-44) 12/08/21 04:10 ABG Base Excess 1.9 mmol/L (-2.0-3.0) 12/08/21 04:10 ABG Hemoglobin 9.0 gm/dl (12.0-16.0) L 12/08/21 04:10 ABG Carboxyhemoglobin 1.1 % (0.0-5.0) 12/08/21 04:10 ABG Methemoglobin 0.5 % (0.0-1.5) 12/08/21 04:10 VBG pH 7.167 (7.320-7.420) L* 12/02/21 01:24 Oxyhemoglobin 95.3 % (95.0-99.0) 12/08/21 04:10 FiO2 30 % 12/08/21 04:10 Sodium 138 mmol/L (137-145) 12/08/21 04:00 Potassium 4.3 mmol/L (3.6-5.0) 12/08/21 04:00 Chloride 96.3 mmol/L (98-107) L 12/08/21 04:00 Carbon Dioxide 23 mmol/L (22-30) 12/08/21 04:00 Anion Gap 23 mmol/L 12/08/21 04:00 BUN 80 mg/dL (7-17) H 12/08/21 04:00 Creatinine 6.4 mg/dL (0.6-1.2) H 12/08/21 04:00 Estimated GFR 6 ml/min 12/08/21 04:00 BUN/Creatinine Ratio 13 % 12/08/21 04:00 Glucose 223 mg/dL (65-100) H 12/08/21 04:00 POC Glucose 240 mg/dL (70-105) H 12/08/21 16:53 Lactic Acid 4.60 mmol/L (0.7-2.0) H* 12/04/21 04:18 Calcium 9.5 mg/dL (8.4-10.2) 12/08/21 04:00 Phosphorus 3.70 mg/dL (2.5-4.5) D 12/08/21 04:00 Magnesium 2.50 mg/dL (1.7-2.3) H 12/08/21 04:00 Ferritin 168.9 ng/mL (10.0-200.0) 12/02/21 04:18 Total Bilirubin 0.40 mg/dL (0.1-1.2) 12/02/21 01:24 AST 86 units/L (5-40) H 12/02/21 01:24 ALT 69 units/L (7-56) H 12/02/21 01:24 Alkaline Phosphatase 91 units/L (35-129) 12/02/21 01:24 Lactate Dehydrogenase 958 units/L (91-180) H 12/02/21 04:18 Total Creatine Kinase 254 units/L (30-135) H 12/02/21 01:24 CK-MB (CK-2) 20.2 ng/mL (0.0-4.0) H 12/02/21 01:24 CK-MB (CK-2) Rel Index 7.9 (0-4) H 12/02/21 01:24 Troponin T 2.500 ng/mL (0.00-0.029) H* 12/02/21 13:51 C-Reactive Protein 6.60 mg/dL (0.00-1.30) H 12/02/21 04:18 NT-Pro-B Natriuret Pep > 3500 pg/mL (0-900) H 12/02/21 01:24 Total Protein 7.7 g/dL (6.3-8.2) 12/02/21 01:24 Albumin 4.0 g/dL (3.9-5) 12/02/21 01:24 Albumin/Globulin Ratio 1.1 % 12/02/21 01:24 Triglycerides 112 mg/dL (2-149) 12/08/21 04:00 Cholesterol 177 mg/dL (50-199) 12/02/21 01:24 LDL Cholesterol Direct 91 mg/dL (50-130) 12/02/21 01:24 HDL Cholesterol 74 mg/dL (40-59) H 12/02/21 01:24 Cholesterol/HDL Ratio 2.39 % 12/02/21 01:24 Procalcitonin 1.24 ng/mL (<0.15) 12/02/21 04:18 Urine Color Yellow (Yellow) 12/03/21 13:48 Urine Turbidity Hazy (Clear) 12/03/21 13:48 Urine pH 7.0 (5.0-7.0) 12/03/21 13:48 Ur Specific [place] 1.009 (1.003-1.030) 12/03/21 13:48 Urine Protein >500 mg/dL (Negative) 12/03/21 13:48 Urine Glucose (UA) 50 mg/dL (Negative) 12/03/21 13:48 Urine Ketones Neg mg/dL (Negative) 12/03/21 13:48 Urine Blood Mod (Negative) 12/03/21 13:48 Urine Nitrite Neg (Negative) 12/03/21 13:48 Urine Bilirubin Neg (Negative) 12/03/21 13:48 Urine Urobilinogen < 2.0 mg/dL (<2.0) 12/03/21 13:48 Ur Leukocyte Esterase Neg (Negative) 12/03/21 13:48 Urine WBC (Auto) 9.0 /HPF (0.0-6.0) H 12/03/21 13:48 Urine RBC (Auto) 5.0 /HPF (0.0-6.0) 12/03/21 13:48 U Epithel Cells (Auto) 2.0 /HPF (0-13.0) 12/03/21 13:48 Urine Bacteria (Auto) 1+ /HPF (Negative) 12/02/21 00:52 Urine Mucus Few /HPF 12/03/21 13:48 Urine Yeast (Budding) Few /HPF 12/02/21 00:52 Urine Creatinine 24.4 mg/dL (0.1-20.0) H 12/02/21 00:52 Protein/Creatinin Ratio 4.55 12/02/21 00:52 Urine Sodium 109 mmol/L 12/02/21 00:52 Urine Total Protein 111 mg/dL (5-11.8) H 12/02/21 00:52 Random Vancomycin 14.0 ug/mL (0-40.0) 12/05/21 04:22 Coronavirus (PCR) Negative (Negative) 12/02/21 09:00 Hepatitis A IgM Ab Non-reactive (NonReactive) 12/05/21 04:22 Hep Bs Antigen Non-reactive (Negative) 12/05/21 04:22 Hep B Core IgM Ab Non-reactive (NonReactive) 12/05/21 04:22 Hepatitis C Antibody Non-reactive (NonReactive) 12/05/21 04:22 Palacio/IV: Voiding Method Indwelling Catheter Active Medications - Current Medications Current Medications: Generic Name Dose Route Start Last Admin Trade Name Freq PRN Reason Stop Dose Admin Acetaminophen 650 mg 12/02/21 04:37 12/07/21 04:58 Acetaminophen 325 Mg Tab PO 650 mg Q4H PRN Administration Pain MILD(1-3)/Fever >100.5/HYLTON Alprazolam 0.5 mg 12/02/21 11:30 12/05/21 04:40 Alprazolam 0.5 Mg Tab PO 0.5 mg Q8H PRN Administration Anxiety Amlodipine Besylate 10 mg 12/03/21 10:00 12/08/21 10:00 Amlodipine 10 Mg Tab PO 10 mg DAILY KHARI Administration Aspirin 81 mg 12/03/21 10:00 12/08/21 14:36 Aspirin 81 Mg Tab Chew PO 81 mg QDAY KHARI Administration Cilostazol 50 mg 12/02/21 22:00 12/08/21 14:36 Cilostazol 100 Mg Tab PO 50 mg BID KHARI Administration Clopidogrel Bisulfate 75 mg 12/03/21 10:00 12/08/21 14:36 Clopidogrel 75 Mg Tab PO 75 mg QDAY KHARI Administration Dextrose 0 ml 12/02/21 05:10 Dextrose 10% *Hypoglycemia IV PRN PRN Hypoglycemia Protocol Epoetin Lenny-epbx 10,000 unit 12/05/21 10:00 12/08/21 13:00 Epoetin Lenny-Epbx 10,000 Unit/1 Ml Vial IV 10,000 unit ED PRN Administration hemodialysis Famotidine 10 mg 12/04/21 22:00 12/08/21 14:36 Famotidine 10 Mg Tab PO 10 mg BID KHARI Administration Heparin Sodium (Porcine) 5,000 unit 12/02/21 06:00 12/08/21 14:00 Heparin 5,000 Unit/1 Ml Vial SUB-Q 5,000 unit Q8HR KHARI Administration Hydrophilic Ointment 1 applic 12/02/21 17:32 Lip Therapy Vaseline TP Q2HR PRN Dry Lips Cefepime HCl 1 gm in 100 mls @ 200 mls/hr 12/02/21 18:00 12/08/21 17:33 Cefepime/Ns 1 Gm/100 Ml IV 12/08/21 17:59 200 mls/hr QPM KHARI Administration Protocol Propofol 1,000 mg in 100 mls @ 1.839 mls/hr 12/02/21 18:00 12/08/21 17:39 Diprivan 10 Mg/Ml IV 5 mcg/kg/min TITR KHARI 1.839 mls/hr Titration Protocol 5 MCG/KG/MIN Sodium Chloride 100 mls @ 999 mls/hr 12/07/21 15:36 Nacl 0.9% IV ED PRN Hypotension Insulin Human Lispro 0 unit 12/03/21 00:00 12/08/21 17:31 Insulin Lispro 100 Unit/Ml SUB-Q 4 unit Q6HR KHARI Administration Protocol Levalbuterol HCl 0.63 mg 12/02/21 10:00 Levalbuterol 0.63 Mg/3 Ml Nebu IH Q8HRT PRN Shortness Of Breath Lorazepam 1 mg 12/02/21 14:22 12/02/21 15:18 Lorazepam 2 Mg/Ml Vial IV 1 mg Q6H PRN Administration Agitation Magnesium Hydroxide 30 ml 12/02/21 04:37 Magnesium Hydroxide (Mom) Oral Liqd Udc PO Q4H PRN Constipation Metoprolol Tartrate 25 mg 12/02/21 15:00 12/08/21 14:35 Metoprolol Tartrate 25 Mg Tab PO 25 mg QDAY KHARI Administration Metoprolol Tartrate 2.5 mg 12/06/21 11:11 12/07/21 17:48 Metoprolol Tartrate 5 Mg/5 Ml Inj IV 2.5 mg Q6HR PRN Administration Tachycardia Multi-Ingred Cream/Lotion/Oil/Oint 1 applic 12/02/21 17:32 Mineral Oil/Petrolatum, White Ophth Oint 3.5 Gm OU Q4HR PRN Dry Eye(s) Ondansetron HCl 4 mg 12/02/21 04:37 Ondansetron 4 Mg/2 Ml Inj IV Q8H PRN Nausea And Vomiting Pravastatin Sodium 80 mg 12/02/21 22:00 12/07/21 22:11 Pravastatin 80 Mg Tab PO 80 mg QHS KHARI Administration Quetiapine Fumarate 50 mg 12/06/21 22:00 12/07/21 22:12 Quetiapine 25 Mg Tab PO 50 mg QHS KHARI Administration Senna/Docusate Sodium 1 tab 12/02/21 22:00 12/08/21 14:36 Sennosides/Docusate Sodium 8.6/50 Mg Tab FEEDTUBE 1 tab BID KHARI Administration Sodium Chloride 10 ml 12/02/21 10:00 12/08/21 14:37 Sodium Chloride 0.9% 10 Ml Flush Syringe IV 10 ml BID KHARI Administration Sodium Chloride 10 ml 12/02/21 04:37 Sodium Chloride 0.9% 10 Ml Flush Syringe IV PRN PRN LINE FLUSH Nutrition/Malnutrition Assess - Dietary Evaluation Nutrition/Malnutrition Findings: Nutrition Notes Start: 12/03/21 16:28 Freq: Status: Active Protocol: Document 12/06/21 16:59 ONI (Rec: 12/06/21 17:19 ONI [id number]) Nutrition Notes Initial or Follow up Brief Note Current Diagnosis Acute Kidney Injury,Diabetes, Sepsis,Hypertension, Respiratory Failure, Hyperlipidemia Other Pertinent Diagnosis Pneumonia, Lactic Acidosis, Metabolic Acidosis, RAYNE+HD, PVD, R-AKA. Current Diet TF-Nepro w/CARBSTEADY @ 30 ml/ hr (since D 12/05). Height 5 ft 4 in Weight 61.3 kg [place] Body Weight (kg) 54.54 BMI 23.1 Weight change and time frame No body weight change reported . Weight Status Appropriate Subjective/Other Information RD consult for routine F/U on TF tolerance. TF infusing as prescribed. No report available on tolerance. Pt continues on Mechanical Ventilation. Percent of energy/protein needs met: Prescribed TF-Nepro w/ CARBSTEADY @ 30 ml/hr provides for energy/protein needs (1, 296 Kcal/58 g) -in addition, Propofol adds 49 Kcal- during LOS, 108% Kcal; 78% AA. #1 Nutrition Diagnosis Inadequate oral intake Diagnosis Progress(for reassessment Continues documentation) Is patient on ventilator? Yes Is Patient Ambulatory and/or Out of Bed No REE-([facility]-confined to bed) 1247.220 Calculation Used for Recommendations [facility] Additional Notes Protein: >1.2 g/Kg; >74 g/day. Fluids: 1 ml/Kcal, or as per MD. Nutrition Intervention Nutrition Support: Nepro w/CARBSTEADY @ 30 ml/hr. Flush: 130 ml water Q 4 hr, or as per MD. Kcal 1,296 Protein (gm) 58 Carbohydrates (gm) 116 Fat (gm) 69 Fluid (mL) 523 Fiber (gm) 9 % RDI: 104% Kcal; 78% AA. Goal #1 Provide at least 75% of energy /protein needs through Enteral Feeding during LOS. Goal #2 Maintain body weight within +/ -3% of admission body weight during LOS. Follow-Up By: 12/12/21 Additional Comments Continue monitoring TF tolerance and BM.
[2021-12-08] MEDS: INSULIN GLARGINE 100 UNITS/ML SUB-Q SCH ×2 (20:08→22:29)
[2021-12-08] MEDS: QUEtiapine 25 MG TAB PO SCH (22:29)
[2021-12-08] MEDS: PRAVASTATIN 80 MG TAB PO SCH (22:29)
[2021-12-09] MEDS: INSULIN LISPRO 100 UNIT/ML SUB-Q SCH ×5 (00:53→23:54)
--- NOTE | 2021-12-09 01:18 | XRay Report ---
XR chest 1V ap INDICATION / CLINICAL INFORMATION: follow up respiratory failure. COMPARISON: Radiograph from yesterday. FINDINGS: SUPPORT DEVICES: Unchanged. HEART /PULMONARY VASCULATURE: Unchanged. LUNGS / PLEURA: Slight interval worsening in perihilar and bibasilar predominant airspace opacities. Small bilateral pleural effusions are present. No pneumothorax. IMPRESSION: Interval worsening. Signer Name: Torito Lam MD Signed: 12/09/2021 1:14 AM Workstation Name: [email or web address]
[2021-12-09 04:50] LABS: Hematocrit 25.9 % (30.3-42.9); Hemoglobin 8.7 gm/dl (10.1-14.3); Mean Corpuscular HGB Conc 34 % (30-34); Mean Corpuscular Volume 89 fl (79-97); Platelet Count 258 K/mm3 (140-440); Red Blood Count 2.91 M/mm3 (3.65-5.03); Red Cell Distribution Width 15.9 % (13.2-15.2)
[2021-12-09 05:11] LABS: Calcium 8.7 mg/dL (8.4-10.2)
[2021-12-09] MEDS: HEPARIN 5,000 UNIT/1 ML VIAL SUB-Q SCH ×3 (06:05→21:17)
[2021-12-09] MEDS ORDERED: SODIUM PHOSPHATE 15 MMOL in SODIUM CHLORIDE 0.9% 250ML 250 ML IV SCH (08:15)
[2021-12-09] MEDS: CILOSTAZOL 100 MG TAB PO SCH ×2 (09:03→21:18)
[2021-12-09] MEDS: CLOPIDOGREL 75 MG TAB PO SCH (09:04)
[2021-12-09] MEDS: FAMOTIDINE 10 MG TAB PO SCH ×2 (09:04→21:17)
[2021-12-09] MEDS: ASPIRIN 81 MG TAB CHEW PO SCH (09:04)
[2021-12-09] MEDS: amLODIPine 10 MG TAB PO SCH (09:04)
[2021-12-09] MEDS: METOPROLOL TARTRATE 25 MG TAB PO SCH (09:04)
[2021-12-09] MEDS: SENNOSIDES/DOCUSATE SODIUM 8.6/50 MG TAB FEEDTUBE SCH ×2 (09:04→21:43)
[2021-12-09 09:11] LABS: ABG Base Excess 0.8 mmol/L (-2.0-3.0); ABG HCO3 23.9 mmol/L (20.0-26.0); ABG Methemoglobin 0.3 % (0.0-1.5); ABG PCO2 30.5 mm Hg; ABG PH 7.511 pH Units (7.350-7.450); ABG PO2 74.1 mm Hg (80.0-90.0)
--- NOTE | 2021-12-09 09:42 | Progress Note ---
Assessment and Plan Acute Hypoxemic Respiratory Failure s/p MVS Pulmonary Edema Vs Pneumonia Severe Sepsis Pneumonia Leukocytosis-improved Lactic Acidosis/Metabolic acidosis Acute Kidney Injury(RAYNE) Hypokalemia Acute Metabolic Acidosis Hypertension Elevated BNP Elevated troponin Elevated D-dimer DM II - will get US chest +/- thoracentesis - continue HD/UF for toxin and volume clearance (will benefit from extra UF session) - schedule home percocet but 1 tab q6h X 48 hours - discontinue martin catheter - complete Cefepime per ID recommendations - rest on AC and resume SBT in am - continue care as below otherwise; - continue daily SAT and SBT assessment as tolerated - continue to wean supplemental oxygen for target O2 sat's > 90% acutely - VAP bundle addressed - continue lung protective strategies - continue bronchodilators with pulmonary hygiene per RT - wean per pulmonary driven protocols otherwise - avoid nephrotoxins, renally dose all medications - continue accuchecks with glycemic control per SSI (While critically ill target blood glucose of 140-180 mg/dL; avoid hypoglycemia) - sedation prn for target RASS 0 to -1 - continue to avoid benzodiazepine's, reduce the possibility of delirium - AB's per ID rec's - prn analgesia per CPOT score - Maintenance of sleep-wake cycle, avoid delirium - continue enteral nutritional support at goal rate as tolerated - G.I. & VTE prophylaxis - PT/OT/ROM exercises - continue mobility protocols for pressure ulcer prophylaxis - Monitor hemodynamics closely - continue other care per attending / other consultants - discharge planning ongoing concurrently COVID SPECIFIC INTERVENTIONS - COVID-19 PCR negative .... Re-evaluate in am & prn CONDITION: CRITICAL PROGNOSIS: GUARDED CODE STATUS: FULL CODE The high probability of a clinically significant, sudden or life-threatening deterioration of the [respiratory, cardiovascular, renal & neurologic] system(s) required my full and direct attention, intervention and personal management. The aggregate critical care time was [32] minutes without overlap. Time includes spent on; [x] Data Review and interpretation [x] Patient assessment and monitoring of vital signs [x] Documentation [x] Medication orders and management Subjective Date of service: 12/09/21 Principal diagnosis: AHRF; Pulm Edema;Pneumonia; Sepsis; Met. acidosis; Acute Kidney Injury; HTN Interval history: Patient is seen today for: Acute Hypoxemic Respiratory Failure on MVS; Pulm Edema Vs Pneumonia; Severe Sepsis; Metabolic acidosis; Acute Kidney Injury; HTN; DM II Seen and examined at bedside; 24hour events reviewed; nursing and respiratory care staff consulted; no adverse overnight events reported to me; resting peacefully in bed; remains on MVS; on SBT but work of breathing significantly increased; AMS is persistent; no emesis or overt aspiration and afebrile Objective Vital Signs - 12hr 12/08/21 12/08/21 12/08/21 22:00 22:30 23:00 Temperature Pulse Rate 102 H 107 H 114 H Pulse Rate [ From Monitor] Respiratory Rate Blood Pressure 121/65 134/59 125/65 O2 Sat by Pulse 98 98 96 Oximetry 12/08/21 12/08/21 12/08/21 23:17 23:30 23:58 Temperature Pulse Rate 119 H 122 H 123 H Pulse Rate [ From Monitor] Respiratory Rate Blood Pressure 136/64 125/66 124/64 O2 Sat by Pulse 95 95 95 Oximetry 12/09/21 12/09/21 12/09/21 00:00 00:30 01:00 Temperature 100.5 F H Pulse Rate 122 H 122 H 115 H Pulse Rate [ 120 H From Monitor] Respiratory 22 Rate Blood Pressure 125/61 120/64 116/55 O2 Sat by Pulse 96 96 97 Oximetry 12/09/21 12/09/21 12/09/21 01:30 02:00 02:30 Temperature Pulse Rate 118 H 111 H 116 H Pulse Rate [ From Monitor] Respiratory Rate Blood Pressure 114/54 122/56 131/70 O2 Sat by Pulse 98 98 97 Oximetry 12/09/21 12/09/21 12/09/21 03:00 03:16 03:30 Temperature 100 F H Pulse Rate 118 H 120 H Pulse Rate [ From Monitor] Respiratory Rate Blood Pressure 136/72 129/64 O2 Sat by Pulse 97 98 Oximetry 12/09/21 12/09/21 12/09/21 03:54 04:00 04:01 Temperature 99.2 F Pulse Rate 112 H 120 H Pulse Rate [ 118 H From Monitor] Respiratory 21 Rate Blood Pressure 123/59 138/75 O2 Sat by Pulse 98 96 96 Oximetry 12/09/21 12/09/21 12/09/21 04:30 05:00 05:30 Temperature Pulse Rate 123 H 124 H 121 H Pulse Rate [ From Monitor] Respiratory Rate Blood Pressure 123/66 132/72 127/67 O2 Sat by Pulse 96 97 97 Oximetry 12/09/21 12/09/21 12/09/21 06:00 06:30 07:00 Temperature Pulse Rate 125 H 124 H 123 H Pulse Rate [ From Monitor] Respiratory Rate Blood Pressure 132/65 139/72 130/68 O2 Sat by Pulse 96 97 96 Oximetry 12/09/21 12/09/21 12/09/21 07:08 07:30 08:00 Temperature 98 F Pulse Rate 125 H 123 H 125 H Pulse Rate [ 122 H From Monitor] Respiratory 32 H 32 H Rate Blood Pressure 130/68 142/70 137/70 O2 Sat by Pulse 96 96 97 Oximetry 12/09/21 12/09/21 12/09/21 08:30 09:01 09:04 Temperature Pulse Rate 123 H 123 H 118 H Pulse Rate [ From Monitor] Respiratory Rate Blood Pressure 142/63 141/66 141/66 O2 Sat by Pulse 97 96 Oximetry Constitutional: appears uncomfortable, other (elderly lady with mild ventilator dyssynchrony at rest) Eyes: non-icteric ENT: oropharynx moist, other (ETT 23 cm CIARAN) Neck: supple, no lymphadenopathy, no JVD Effort: mildly labored Ascultation: Bilateral: rhonchi (bases) Percussion: Bilateral: not dull Cardiovascular: regular rate and rhythm Gastrointestinal: normoactive bowel sounds, soft, non-tender, non-distended Extremities: no cyanosis, pulses normal, no ischemia or petechiae Neurologic: pupils equal and round, unable to assess Psychiatric: other (unable to assess re: AMS) CBC and BMP: 12/09/21 04:20 12/09/21 04:20 ABG, PT/INR, D-dimer: ABG ABG pH 7.511 pH Units (7.350-7.450) H 12/09/21 08:45 ABG pCO2 30.5 mm Hg 12/09/21 08:45 ABG pO2 74.1 mm Hg (80.0-90.0) L 12/09/21 08:45 ABG O2 Saturation 97.0 % (95.0-99.0) 12/09/21 08:45 PT/INR, D-dimer PT 15.9 Sec. (12.2-14.9) H 12/02/21 01:24 INR 1.15 (0.87-1.13) H 12/02/21 01:24 D-Dimer 1461.68 ng/mlDDU (0-234) H 12/02/21 04:18 Abnormal lab findings: Abnormal Labs 12/02/21 12/02/21 12/02/21 00:52 00:52 01:24 WBC 15.4 H RBC Hgb Hct MCHC RDW 15.8 H Lymph % (Auto) 6.3 L [place] % (Auto) 11.7 H Lymph # (Auto) 1.0 L [place] # (Auto) 1.8 H Seg Neutrophils % 81.8 H Lymphocytes % (Manual) Seg Neutrophils # 12.6 H Lymphocytes # (Manual) PT INR D-Dimer ABG pH ABG pO2 ABG HCO3 ABG O2 Saturation ABG Base Excess ABG Hemoglobin VBG pH Oxyhemoglobin Sodium Potassium Chloride Carbon Dioxide BUN Creatinine Glucose POC Glucose Lactic Acid Calcium Phosphorus Magnesium AST ALT Lactate Dehydrogenase Total Creatine Kinase CK-MB (CK-2) CK-MB (CK-2) Rel Index Troponin T C-Reactive Protein NT-Pro-B Natriuret Pep Triglycerides HDL Cholesterol Urine WBC (Auto) 27.0 H Urine Creatinine 24.4 H Urine Total Protein 111 H 12/02/21 12/02/21 12/02/21 01:24 01:24 01:24 WBC RBC Hgb Hct MCHC RDW Lymph % (Auto) [place] % (Auto) Lymph # (Auto) [place] # (Auto) Seg Neutrophils % Lymphocytes % (Manual) Seg Neutrophils # Lymphocytes # (Manual) PT 15.9 H INR 1.15 H D-Dimer ABG pH ABG pO2 ABG HCO3 ABG O2 Saturation ABG Base Excess ABG Hemoglobin VBG pH Oxyhemoglobin Sodium Potassium 3.5 L Chloride Carbon Dioxide 4 L* BUN 43 H Creatinine 5.1 H Glucose 239 H POC Glucose Lactic Acid 15.70 H* Calcium Phosphorus Magnesium AST 86 H ALT 69 H Lactate Dehydrogenase Total Creatine Kinase 254 H CK-MB (CK-2) 20.2 H CK-MB (CK-2) Rel Index 7.9 H Troponin T C-Reactive Protein NT-Pro-B Natriuret Pep Triglycerides HDL Cholesterol Urine WBC (Auto) Urine Creatinine Urine Total Protein 12/02/21 12/02/21 12/02/21 01:24 01:24 04:18 WBC RBC Hgb Hct MCHC RDW Lymph % (Auto) [place] % (Auto) Lymph # (Auto) [place] # (Auto) Seg Neutrophils % Lymphocytes % (Manual) Seg Neutrophils # Lymphocytes # (Manual) PT INR D-Dimer 1461.68 H ABG pH ABG pO2 ABG HCO3 ABG O2 Saturation ABG Base Excess ABG Hemoglobin VBG pH 7.167 L* Oxyhemoglobin Sodium Potassium Chloride Carbon Dioxide BUN Creatinine Glucose POC Glucose Lactic Acid Calcium Phosphorus Magnesium AST ALT Lactate Dehydrogenase Total Creatine Kinase CK-MB (CK-2) CK-MB (CK-2) Rel Index Troponin T 2.600 H* C-Reactive Protein NT-Pro-B Natriuret Pep > 3500 H Triglycerides HDL Cholesterol 74 H Urine WBC (Auto) Urine Creatinine Urine Total Protein 12/02/21 12/02/21 12/02/21 04:18 04:18 10:47 WBC RBC Hgb Hct MCHC RDW Lymph % (Auto) [place] % (Auto) Lymph # (Auto) [place] # (Auto) Seg Neutrophils % Lymphocytes % (Manual) Seg Neutrophils # Lymphocytes # (Manual) PT INR D-Dimer ABG pH ABG pO2 ABG HCO3 ABG O2 Saturation ABG Base Excess ABG Hemoglobin VBG pH Oxyhemoglobin Sodium Potassium Chloride Carbon Dioxide 7 L* BUN 51 H Creatinine 5.9 H Glucose 255 H 224 H POC Glucose Lactic Acid 15.40 H* Calcium Phosphorus Magnesium AST ALT Lactate Dehydrogenase 958 H Total Creatine Kinase CK-MB (CK-2) CK-MB (CK-2) Rel Index Troponin T C-Reactive Protein 6.60 H NT-Pro-B Natriuret Pep Triglycerides HDL Cholesterol Urine WBC (Auto) Urine Creatinine Urine Total Protein 12/02/21 12/02/21 12/02/21 10:53 13:51 13:51 WBC RBC Hgb Hct MCHC RDW Lymph % (Auto) [place] % (Auto) Lymph # (Auto) [place] # (Auto) Seg Neutrophils % Lymphocytes % (Manual) Seg Neutrophils # Lymphocytes # (Manual) PT INR D-Dimer ABG pH ABG pO2 ABG HCO3 ABG O2 Saturation ABG Base Excess ABG Hemoglobin VBG pH Oxyhemoglobin Sodium Potassium Chloride Carbon Dioxide BUN Creatinine Glucose POC Glucose 194 H Lactic Acid 11.70 H* Calcium Phosphorus Magnesium AST ALT Lactate Dehydrogenase Total Creatine Kinase CK-MB (CK-2) CK-MB (CK-2) Rel Index Troponin T 2.500 H* C-Reactive Protein NT-Pro-B Natriuret Pep Triglycerides HDL Cholesterol Urine WBC (Auto) Urine Creatinine Urine Total Protein 12/02/21 12/02/21 12/02/21 20:31 22:56 22:56 WBC RBC Hgb Hct MCHC RDW Lymph % (Auto) [place] % (Auto) Lymph # (Auto) [place] # (Auto) Seg Neutrophils % Lymphocytes % (Manual) Seg Neutrophils # Lymphocytes # (Manual) PT INR D-Dimer ABG pH ABG pO2 156.2 H ABG HCO3 15.4 L ABG O2 Saturation ABG Base Excess -8.7 L ABG Hemoglobin VBG pH Oxyhemoglobin Sodium 147 H Potassium 3.4 L Chloride Carbon Dioxide 18 L D BUN 59 H Creatinine 6.2 H Glucose 150 H POC Glucose Lactic Acid 6.10 H* Calcium 8.3 L Phosphorus Magnesium AST ALT Lactate Dehydrogenase Total Creatine Kinase CK-MB (CK-2) CK-MB (CK-2) Rel Index Troponin T C-Reactive Protein NT-Pro-B Natriuret Pep Triglycerides HDL Cholesterol Urine WBC (Auto) Urine Creatinine Urine Total Protein 12/03/21 12/03/21 12/03/21 00:25 00:42 04:00 WBC RBC Hgb Hct MCHC RDW 15.4 H Lymph % (Auto) [place] % (Auto) Lymph # (Auto) [place] # (Auto) Seg Neutrophils % Lymphocytes % (Manual) 7.0 L Seg Neutrophils # Lymphocytes # (Manual) 0.4 L PT INR D-Dimer ABG pH ABG pO2 ABG HCO3 ABG O2 Saturation ABG Base Excess ABG Hemoglobin VBG pH Oxyhemoglobin Sodium Potassium Chloride Carbon Dioxide BUN Creatinine Glucose POC Glucose 150 H Lactic Acid 5.80 H* Calcium Phosphorus Magnesium AST ALT Lactate Dehydrogenase Total Creatine Kinase CK-MB (CK-2) CK-MB (CK-2) Rel Index Troponin T C-Reactive Protein NT-Pro-B Natriuret Pep Triglycerides HDL Cholesterol Urine WBC (Auto) Urine Creatinine Urine Total Protein 12/03/21 12/03/21 12/03/21 04:00 06:14 08:35 WBC RBC Hgb Hct MCHC RDW Lymph % (Auto) [place] % (Auto) Lymph # (Auto) [place] # (Auto) Seg Neutrophils % Lymphocytes % (Manual) Seg Neutrophils # Lymphocytes # (Manual) PT INR D-Dimer ABG pH 7.533 H ABG pO2 120.9 H ABG HCO3 ABG O2 Saturation ABG Base Excess ABG Hemoglobin 11.9 L VBG pH Oxyhemoglobin Sodium Potassium 3.5 L Chloride Carbon Dioxide 21 L BUN 63 H Creatinine 6.3 H Glucose 158 H POC Glucose 145 H Lactic Acid Calcium 7.9 L Phosphorus Magnesium AST ALT Lactate Dehydrogenase Total Creatine Kinase CK-MB (CK-2) CK-MB (CK-2) Rel Index Troponin T C-Reactive Protein NT-Pro-B Natriuret Pep Triglycerides HDL Cholesterol Urine WBC (Auto) Urine Creatinine Urine Total Protein 12/03/21 12/03/21 12/03/21 12:35 13:48 15:51 WBC RBC Hgb Hct MCHC RDW Lymph % (Auto) [place] % (Auto) Lymph # (Auto) [place] # (Auto) Seg Neutrophils % Lymphocytes % (Manual) Seg Neutrophils # Lymphocytes # (Manual) PT INR D-Dimer ABG pH ABG pO2 ABG HCO3 ABG O2 Saturation ABG Base Excess ABG Hemoglobin VBG pH Oxyhemoglobin Sodium Potassium Chloride Carbon Dioxide BUN Creatinine Glucose POC Glucose 151 H 168 H Lactic Acid Calcium Phosphorus Magnesium AST ALT Lactate Dehydrogenase Total Creatine Kinase CK-MB (CK-2) CK-MB (CK-2) Rel Index Troponin T C-Reactive Protein NT-Pro-B Natriuret Pep Triglycerides HDL Cholesterol Urine WBC (Auto) 9.0 H Urine Creatinine Urine Total Protein 12/03/21 12/03/21 12/03/21 16:20 16:35 23:21 WBC RBC Hgb Hct MCHC RDW Lymph % (Auto) [place] % (Auto) Lymph # (Auto) [place] # (Auto) Seg Neutrophils % Lymphocytes % (Manual) Seg Neutrophils # Lymphocytes # (Manual) PT INR D-Dimer ABG pH ABG pO2 ABG HCO3 ABG O2 Saturation ABG Base Excess ABG Hemoglobin VBG pH Oxyhemoglobin Sodium Potassium Chloride 92.3 L Carbon Dioxide BUN 67 H Creatinine 7.1 H Glucose 160 H POC Glucose 158 H 161 H Lactic Acid Calcium 7.3 L Phosphorus Magnesium AST ALT Lactate Dehydrogenase Total Creatine Kinase CK-MB (CK-2) CK-MB (CK-2) Rel Index Troponin T C-Reactive Protein NT-Pro-B Natriuret Pep Triglycerides HDL Cholesterol Urine WBC (Auto) Urine Creatinine Urine Total Protein 12/04/21 12/04/2112/04/22 04:18 04:18 04:18 WBC RBC 3.29 L Hgb 10.0 L Hct 28.4 L D MCHC 35 H RDW 15.4 H Lymph % (Auto) [place] % (Auto) Lymph # (Auto) [place] # (Auto) Seg Neutrophils % Lymphocytes % (Manual) Seg Neutrophils # Lymphocytes # (Manual) PT INR D-Dimer ABG pH ABG pO2 ABG HCO3 ABG O2 Saturation ABG Base Excess ABG Hemoglobin VBG pH Oxyhemoglobin Sodium Potassium 3.5 L Chloride 91.5 L Carbon Dioxide 33 H D BUN 74 H Creatinine 7.5 H Glucose 155 H POC Glucose Lactic Acid 4.60 H* Calcium 7.2 L Phosphorus 4.60 H Magnesium AST ALT Lactate Dehydrogenase Total Creatine Kinase CK-MB (CK-2) CK-MB (CK-2) Rel Index Troponin T C-Reactive Protein NT-Pro-B Natriuret Pep Triglycerides HDL Cholesterol Urine WBC (Auto) Urine Creatinine Urine Total Protein 12/04/21 12/04/21 12/04/21 10:29 11:08 15:46 WBC RBC Hgb Hct MCHC RDW Lymph % (Auto) [place] % (Auto) Lymph # (Auto) [place] # (Auto) Seg Neutrophils % Lymphocytes % (Manual) Seg Neutrophils # Lymphocytes # (Manual) PT INR D-Dimer ABG pH 7.504 H ABG pO2 40.8 L ABG HCO3 30.1 H ABG O2 Saturation 75.1 L ABG Base Excess 6.6 H ABG Hemoglobin 10.2 L VBG pH Oxyhemoglobin 73.7 L Sodium Potassium Chloride Carbon Dioxide BUN Creatinine Glucose POC Glucose 146 H 155 H Lactic Acid Calcium Phosphorus Magnesium AST ALT Lactate Dehydrogenase Total Creatine Kinase CK-MB (CK-2) CK-MB (CK-2) Rel Index Troponin T C-Reactive Protein NT-Pro-B Natriuret Pep Triglycerides HDL Cholesterol Urine WBC (Auto) Urine Creatinine Urine Total Protein 12/04/21 12/05/21 12/05/21 23:30 04:22 04:22 WBC 12.7 H RBC 3.33 L Hgb 9.6 L Hct 29.3 L MCHC RDW 15.5 H Lymph % (Auto) [place] % (Auto) Lymph # (Auto) [place] # (Auto) Seg Neutrophils % Lymphocytes % (Manual) Seg Neutrophils # Lymphocytes # (Manual) PT INR D-Dimer ABG pH ABG pO2 ABG HCO3 ABG O2 Saturation ABG Base Excess ABG Hemoglobin VBG pH Oxyhemoglobin Sodium Potassium Chloride 90.3 L Carbon Dioxide BUN 89 H Creatinine 8.8 H Glucose 216 H POC Glucose 183 H Lactic Acid Calcium 8.0 L Phosphorus 4.60 H Magnesium AST ALT Lactate Dehydrogenase Total Creatine Kinase CK-MB (CK-2) CK-MB (CK-2) Rel Index Troponin T C-Reactive Protein NT-Pro-B Natriuret Pep Triglycerides 280 H HDL Cholesterol Urine WBC (Auto) Urine Creatinine Urine Total Protein 12/05/21 12/05/21 12/05/21 10:15 10:54 11:57 WBC RBC Hgb Hct MCHC RDW Lymph % (Auto) [place] % (Auto) Lymph # (Auto) [place] # (Auto) Seg Neutrophils % Lymphocytes % (Manual) Seg Neutrophils # Lymphocytes # (Manual) PT INR D-Dimer ABG pH 7.518 H ABG pO2 43.4 L ABG HCO3 28.8 H ABG O2 Saturation 78.6 L ABG Base Excess 5.6 H ABG Hemoglobin 8.4 L VBG pH Oxyhemoglobin 77.1 L Sodium Potassium Chloride Carbon Dioxide BUN Creatinine Glucose POC Glucose 187 H 196 H Lactic Acid Calcium Phosphorus Magnesium AST ALT Lactate Dehydrogenase Total Creatine Kinase CK-MB (CK-2) CK-MB (CK-2) Rel Index Troponin T C-Reactive Protein NT-Pro-B Natriuret Pep Triglycerides HDL Cholesterol Urine WBC (Auto) Urine Creatinine Urine Total Protein 12/05/21 12/05/21 12/05/21 16:34 18:02 23:39 WBC RBC Hgb Hct MCHC RDW Lymph % (Auto) [place] % (Auto) Lymph # (Auto) [place] # (Auto) Seg Neutrophils % Lymphocytes % (Manual) Seg Neutrophils # Lymphocytes # (Manual) PT INR D-Dimer ABG pH ABG pO2 ABG HCO3 ABG O2 Saturation ABG Base Excess ABG Hemoglobin VBG pH Oxyhemoglobin Sodium Potassium Chloride Carbon Dioxide BUN Creatinine Glucose POC Glucose 178 H 167 H 235 H Lactic Acid Calcium Phosphorus Magnesium AST ALT Lactate Dehydrogenase Total Creatine Kinase CK-MB (CK-2) CK-MB (CK-2) Rel Index Troponin T C-Reactive Protein NT-Pro-B Natriuret Pep Triglycerides HDL Cholesterol Urine WBC (Auto) Urine Creatinine Urine Total Protein 12/06/21 12/06/21 12/06/21 04:35 04:35 05:37 WBC 11.8 H RBC 2.99 L Hgb 8.9 L Hct 26.1 L MCHC RDW Lymph % (Auto) [place] % (Auto) Lymph # (Auto) [place] # (Auto) Seg Neutrophils % Lymphocytes % (Manual) Seg Neutrophils # Lymphocytes # (Manual) PT INR D-Dimer ABG pH ABG pO2 ABG HCO3 ABG O2 Saturation ABG Base Excess ABG Hemoglobin VBG pH Oxyhemoglobin Sodium Potassium Chloride 95.0 L Carbon Dioxide BUN 59 H Creatinine 6.3 H Glucose 244 H POC Glucose 251 H Lactic Acid Calcium Phosphorus Magnesium AST ALT Lactate Dehydrogenase Total Creatine Kinase CK-MB (CK-2) CK-MB (CK-2) Rel Index Troponin T C-Reactive Protein NT-Pro-B Natriuret Pep Triglycerides HDL Cholesterol Urine WBC (Auto) Urine Creatinine Urine Total Protein 12/06/21 12/06/21 12/06/21 06:05 11:45 17:19 WBC RBC Hgb Hct MCHC RDW Lymph % (Auto) [place] % (Auto) Lymph # (Auto) [place] # (Auto) Seg Neutrophils % Lymphocytes % (Manual) Seg Neutrophils # Lymphocytes # (Manual) PT INR D-Dimer ABG pH 7.555 H ABG pO2 95.3 H ABG HCO3 27.3 H ABG O2 Saturation ABG Base Excess 4.9 H ABG Hemoglobin 9.0 L VBG pH Oxyhemoglobin Sodium Potassium Chloride Carbon Dioxide BUN Creatinine Glucose POC Glucose 249 H 187 H Lactic Acid Calcium Phosphorus Magnesium AST ALT Lactate Dehydrogenase Total Creatine Kinase CK-MB (CK-2) CK-MB (CK-2) Rel Index Troponin T C-Reactive Protein NT-Pro-B Natriuret Pep Triglycerides HDL Cholesterol Urine WBC (Auto) Urine Creatinine Urine Total Protein 12/06/21 12/07/21 12/07/21 23:24 04:00 04:00 WBC RBC 3.10 L Hgb 8.8 L Hct 27.5 L MCHC RDW 15.8 H Lymph % (Auto) [place] % (Auto) Lymph # (Auto) [place] # (Auto) Seg Neutrophils % Lymphocytes % (Manual) Seg Neutrophils # Lymphocytes # (Manual) PT INR D-Dimer ABG pH ABG pO2 ABG HCO3 ABG O2 Saturation ABG Base Excess ABG Hemoglobin VBG pH Oxyhemoglobin Sodium Potassium Chloride Carbon Dioxide BUN 50 H Creatinine 5.5 H Glucose 248 H POC Glucose 233 H Lactic Acid Calcium Phosphorus Magnesium AST ALT Lactate Dehydrogenase Total Creatine Kinase CK-MB (CK-2) CK-MB (CK-2) Rel Index Troponin T C-Reactive Protein NT-Pro-B Natriuret Pep Triglycerides HDL Cholesterol Urine WBC (Auto) Urine Creatinine Urine Total Protein 12/07/21 12/07/21 12/07/21 04:55 05:40 10:49 WBC RBC Hgb Hct MCHC RDW Lymph % (Auto) [place] % (Auto) Lymph # (Auto) [place] # (Auto) Seg Neutrophils % Lymphocytes % (Manual) Seg Neutrophils # Lymphocytes # (Manual) PT INR D-Dimer ABG pH 7.519 H ABG pO2 65.4 L ABG HCO3 27.1 H ABG O2 Saturation ABG Base Excess 4.1 H ABG Hemoglobin 8.3 L VBG pH Oxyhemoglobin 94.9 L Sodium Potassium Chloride Carbon Dioxide BUN Creatinine Glucose POC Glucose 230 H 215 H Lactic Acid Calcium Phosphorus Magnesium AST ALT Lactate Dehydrogenase Total Creatine Kinase CK-MB (CK-2) CK-MB (CK-2) Rel Index Troponin T C-Reactive Protein NT-Pro-B Natriuret Pep Triglycerides HDL Cholesterol Urine WBC (Auto) Urine Creatinine Urine Total Protein 12/07/21 12/07/21 12/08/21 15:53 23:33 04:00 WBC 14.6 H RBC 2.91 L Hgb 8.9 L Hct 25.6 L MCHC 35 H RDW 15.6 H Lymph % (Auto) [place] % (Auto) Lymph # (Auto) [place] # (Auto) Seg Neutrophils % Lymphocytes % (Manual) Seg Neutrophils # Lymphocytes # (Manual) PT INR D-Dimer ABG pH ABG pO2 ABG HCO3 ABG O2 Saturation ABG Base Excess ABG Hemoglobin VBG pH Oxyhemoglobin Sodium Potassium Chloride Carbon Dioxide BUN Creatinine Glucose POC Glucose 167 H 206 H Lactic Acid Calcium Phosphorus Magnesium AST ALT Lactate Dehydrogenase Total Creatine Kinase CK-MB (CK-2) CK-MB (CK-2) Rel Index Troponin T C-Reactive Protein NT-Pro-B Natriuret Pep Triglycerides HDL Cholesterol Urine WBC (Auto) Urine Creatinine Urine Total Protein 12/08/21 12/08/21 12/08/21 04:00 04:10 05:15 WBC RBC Hgb Hct MCHC RDW Lymph % (Auto) [place] % (Auto) Lymph # (Auto) [place] # (Auto) Seg Neutrophils % Lymphocytes % (Manual) Seg Neutrophils # Lymphocytes # (Manual) PT INR D-Dimer ABG pH 7.511 H ABG pO2 77.8 L ABG HCO3 ABG O2 Saturation ABG Base Excess ABG Hemoglobin 9.0 L VBG pH Oxyhemoglobin Sodium Potassium Chloride 96.3 L Carbon Dioxide BUN 80 H Creatinine 6.4 H Glucose 223 H POC Glucose 193 H Lactic Acid Calcium Phosphorus Magnesium 2.50 H AST ALT Lactate Dehydrogenase Total Creatine Kinase CK-MB (CK-2) CK-MB (CK-2) Rel Index Troponin T C-Reactive Protein NT-Pro-B Natriuret Pep Triglycerides HDL Cholesterol Urine WBC (Auto) Urine Creatinine Urine Total Protein 12/08/21 12/08/21 12/08/21 11:29 16:53 19:56 WBC RBC Hgb Hct MCHC RDW Lymph % (Auto) [place] % (Auto) Lymph # (Auto) [place] # (Auto) Seg Neutrophils % Lymphocytes % (Manual) Seg Neutrophils # Lymphocytes # (Manual) PT INR D-Dimer ABG pH ABG pO2 ABG HCO3 ABG O2 Saturation ABG Base Excess ABG Hemoglobin VBG pH Oxyhemoglobin Sodium Potassium Chloride Carbon Dioxide BUN Creatinine Glucose POC Glucose 202 H 240 H 236 H Lactic Acid Calcium Phosphorus Magnesium AST ALT Lactate Dehydrogenase Total Creatine Kinase CK-MB (CK-2) CK-MB (CK-2) Rel Index Troponin T C-Reactive Protein NT-Pro-B Natriuret Pep Triglycerides HDL Cholesterol Urine WBC (Auto) Urine Creatinine Urine Total Protein 12/09/21 12/09/21 12/09/21 00:16 04:20 04:20 WBC 16.4 H RBC 2.91 L Hgb 8.7 L Hct 25.9 L MCHC RDW 15.9 H Lymph % (Auto) [place] % (Auto) Lymph # (Auto) [place] # (Auto) Seg Neutrophils % Lymphocytes % (Manual) Seg Neutrophils # Lymphocytes # (Manual) PT INR D-Dimer ABG pH ABG pO2 ABG HCO3 ABG O2 Saturation ABG Base Excess ABG Hemoglobin VBG pH Oxyhemoglobin Sodium Potassium Chloride Carbon Dioxide BUN 58 H Creatinine 4.5 H Glucose 235 H POC Glucose 243 H Lactic Acid Calcium Phosphorus 2.40 L D Magnesium AST ALT Lactate Dehydrogenase Total Creatine Kinase CK-MB (CK-2) CK-MB (CK-2) Rel Index Troponin T C-Reactive Protein NT-Pro-B Natriuret Pep Triglycerides HDL Cholesterol Urine WBC (Auto) Urine Creatinine Urine Total Protein 12/09/21 12/09/21 05:19 08:45 WBC RBC Hgb Hct MCHC RDW Lymph % (Auto) [place] % (Auto) Lymph # (Auto) [place] # (Auto) Seg Neutrophils % Lymphocytes % (Manual) Seg Neutrophils # Lymphocytes # (Manual) PT INR D-Dimer ABG pH 7.511 H ABG pO2 74.1 L ABG HCO3 ABG O2 Saturation ABG Base Excess ABG Hemoglobin 6.4 L VBG pH Oxyhemoglobin Sodium Potassium Chloride Carbon Dioxide BUN Creatinine Glucose POC Glucose 217 H Lactic Acid Calcium Phosphorus Magnesium AST ALT Lactate Dehydrogenase Total Creatine Kinase CK-MB (CK-2) CK-MB (CK-2) Rel Index Troponin T C-Reactive Protein NT-Pro-B Natriuret Pep Triglycerides HDL Cholesterol Urine WBC (Auto) Urine Creatinine Urine Total Protein Chest x-ray: image reviewed (persistent moderate volume overload pattern) Allied health notes reviewed: nursing
--- NOTE | 2021-12-09 09:57 | Progress Note ---
Assessment and Plan Impression: * Oligoanuric acute kidney injury secondary to ATN --HD initiation on Dec 06 * Metabolic acidosis, severe * Lactic acidosis * Acute hypoxic respiratory failure * Sepsis - ?bilateral PNA * NSTEMI Plan: * Patient is s/p HD last yesterday, no issues of note * Plan for HD to continue MWF schedule or prn, next HD tomorrow * UF as tolerated * Monitor for evidence of renal recovery- no sign of recovery with minimal urine output, uptrending creatinine off HD * Vent management per pulmonary * Cardiology recommendations reviewed * Abx per primary team/ID * Dose medications for renal * Avoid potential nephrotoxins * Strict I/O Subjective Date of service: 12/09/21 Principal diagnosis: AHRF; Pulm Edema;Pneumonia; Sepsis; Met. acidosis; Acute Kidney Injury; HTN Interval history: No acute events. Patient remains intubated - TV 400, FiO2 40%, PEEP 6 Had HD yesterday, uneventful Objective - Exam Narrative Exam: General appearance: well-developed, well-nourished, intubated EENT: ATNC, other (ETT in place) Respiratory: Present: Other (coarse BS) Cardiology: regular, S1S2 Gastrointestinal: hypoactive bowel sounds, no distended Integumentary: no rash, warm and dry Neurologic: other (sedated) Skin: intact - Vital Signs Vital signs: Vital Signs - 12hr 12/08/21 12/08/21 12/08/21 22:00 22:30 23:00 Temperature Pulse Rate 102 H 107 H 114 H Pulse Rate [ From Monitor] Respiratory Rate Blood Pressure 121/65 134/59 125/65 O2 Sat by Pulse 98 98 96 Oximetry 12/08/21 12/08/21 12/08/21 23:17 23:30 23:58 Temperature Pulse Rate 119 H 122 H 123 H Pulse Rate [ From Monitor] Respiratory Rate Blood Pressure 136/64 125/66 124/64 O2 Sat by Pulse 95 95 95 Oximetry 12/09/21 12/09/21 12/09/21 00:00 00:30 01:00 Temperature 100.5 F H Pulse Rate 122 H 122 H 115 H Pulse Rate [ 120 H From Monitor] Respiratory 22 Rate Blood Pressure 125/61 120/64 116/55 O2 Sat by Pulse 96 96 97 Oximetry 12/09/21 12/09/21 12/09/21 01:30 02:00 02:30 Temperature Pulse Rate 118 H 111 H 116 H Pulse Rate [ From Monitor] Respiratory Rate Blood Pressure 114/54 122/56 131/70 O2 Sat by Pulse 98 98 97 Oximetry 12/09/21 12/09/21 12/09/21 03:00 03:16 03:30 Temperature 100 F H Pulse Rate 118 H 120 H Pulse Rate [ From Monitor] Respiratory Rate Blood Pressure 136/72 129/64 O2 Sat by Pulse 97 98 Oximetry 12/09/21 12/09/21 12/09/21 03:54 04:00 04:01 Temperature 99.2 F Pulse Rate 112 H 120 H Pulse Rate [ 118 H From Monitor] Respiratory 21 Rate Blood Pressure 123/59 138/75 O2 Sat by Pulse 98 96 96 Oximetry 12/09/21 12/09/21 12/09/21 04:30 05:00 05:30 Temperature Pulse Rate 123 H 124 H 121 H Pulse Rate [ From Monitor] Respiratory Rate Blood Pressure 123/66 132/72 127/67 O2 Sat by Pulse 96 97 97 Oximetry 12/09/21 12/09/21 12/09/21 06:00 06:30 07:00 Temperature Pulse Rate 125 H 124 H 123 H Pulse Rate [ From Monitor] Respiratory Rate Blood Pressure 132/65 139/72 130/68 O2 Sat by Pulse 96 97 96 Oximetry 12/09/21 12/09/21 12/09/21 07:08 07:30 08:00 Temperature 98 F Pulse Rate 125 H 123 H 125 H Pulse Rate [ 122 H From Monitor] Respiratory 32 H 32 H Rate Blood Pressure 130/68 142/70 137/70 O2 Sat by Pulse 96 96 97 Oximetry 12/09/21 12/09/21 12/09/21 08:30 09:01 09:04 Temperature Pulse Rate 123 H 123 H 118 H Pulse Rate [ From Monitor] Respiratory Rate Blood Pressure 142/63 141/66 141/66 O2 Sat by Pulse 97 96 Oximetry - Lab 12/09/21 04:20 12/09/21 04:20 Most recent lab results ABG pH 7.511 pH Units (7.350-7.450) H 12/09/21 08:45 ABG pCO2 30.5 mm Hg 12/09/21 08:45 ABG pO2 74.1 mm Hg (80.0-90.0) L 12/09/21 08:45 ABG HCO3 23.9 mmol/L (20.0-26.0) 12/09/21 08:45 ABG O2 Saturation 97.0 % (95.0-99.0) 12/09/21 08:45 Calcium 8.7 mg/dL (8.4-10.2) 12/09/21 04:20 Phosphorus 2.40 mg/dL (2.5-4.5) L D 12/09/21 04:20 Magnesium 2.20 mg/dL (1.7-2.3) 12/09/21 04:20 Urine Creatinine 24.4 mg/dL (0.1-20.0) H 12/02/21 00:52 Urine Sodium 109 mmol/L 12/02/21 00:52 Urine Total Protein 111 mg/dL (5-11.8) H 12/02/21 00:52 Medications & Allergies - Medications Allergies/Adverse Reactions: Allergies No Known Allergies Allergy (Verified 12/09/21 09:39) Home Medications: Home Medications Medication Instructions Recorded Confirmed Last Taken Type Gabapentin 300 mg PO BID 04/05/19 04/06/19 Unknown History Metoprolol [Lopressor TAB] 25 mg PO QDAY 04/05/19 04/06/19 Unknown History Simvastatin 40 mg PO QHS 04/05/19 04/06/19 Unknown History Vitamin D2 50,000 units PO QWEEK 04/05/19 04/06/19 Unknown History amLODIPine 10 mg PO DAILY 04/05/19 04/05/19 Unknown History metFORMIN [Glucophage] 500 mg PO QHS 04/05/19 04/06/19 Unknown History raNITIdine HCl [Zantac] 300 mg PO QDAY 04/05/19 04/06/19 Unknown History Aspirin [Aspirin BABY CHEW TAB] 81 mg PO QDAY #30 tab.chew 04/12/19 Unknown Rx Clopidogrel [Plavix] 75 mg PO QDAY #30 tablet 04/12/19 Unknown Rx cilostazoL [Pletal] 50 mg PO BID #30 tablet 04/12/19 Unknown Rx oxyCODONE /ACETAMINOPHEN [Percocet 2 tab PO Q6H PRN #20 tablet 04/12/19 Unknown Rx 5/325 mg] Active Medications: Generic Name Dose Route Start Last Admin Trade Name Freq PRN Reason Stop Dose Admin Acetaminophen 650 mg 12/02/21 04:37 12/07/21 04:58 Acetaminophen 325 Mg Tab PO 650 mg Q4H PRN Administration Pain MILD(1-3)/Fever >100.5/HYLTON Alprazolam 0.5 mg 12/02/21 11:30 12/05/21 04:40 Alprazolam 0.5 Mg Tab PO 0.5 mg Q8H PRN Administration Anxiety Amlodipine Besylate 10 mg 12/03/21 10:00 12/09/21 09:04 Amlodipine 10 Mg Tab PO 10 mg DAILY KHARI Administration Aspirin 81 mg 12/03/21 10:00 12/09/21 09:04 Aspirin 81 Mg Tab Chew PO 81 mg QDAY KHARI Administration Cilostazol 50 mg 12/02/21 22:00 12/09/21 09:03 Cilostazol 100 Mg Tab PO 50 mg BID KHARI Administration Clopidogrel Bisulfate 75 mg 12/03/21 10:00 12/09/21 09:04 Clopidogrel 75 Mg Tab PO 75 mg QDAY KHARI Administration Dextrose 0 ml 12/02/21 05:10 Dextrose 10% *Hypoglycemia IV PRN PRN Hypoglycemia Protocol Epoetin Lenny-epbx 10,000 unit 12/05/21 10:00 12/08/21 13:00 Epoetin Lenny-Epbx 10,000 Unit/1 Ml Vial IV 10,000 unit ED PRN Administration hemodialysis Famotidine 10 mg 12/04/21 22:00 12/09/21 09:04 Famotidine 10 Mg Tab PO 10 mg BID KHARI Administration Heparin Sodium (Porcine) 5,000 unit 12/02/21 06:00 12/09/21 06:05 Heparin 5,000 Unit/1 Ml Vial SUB-Q 5,000 unit Q8HR KHARI Administration Hydrophilic Ointment 1 applic 12/02/21 17:32 Lip Therapy Vaseline TP Q2HR PRN Dry Lips Propofol 1,000 mg in 100 mls @ 1.839 mls/hr 12/02/21 18:00 12/09/21 09:06 Diprivan 10 Mg/Ml IV 0 mcg/kg/min TITR KHARI 0 mls/hr Titration Protocol 5 MCG/KG/MIN Sodium Chloride 100 mls @ 999 mls/hr 12/07/21 15:36 Nacl 0.9% IV ED PRN Hypotension Sodium Phosphate 15 mmol/ 255 mls @ 125 mls/hr 12/09/21 08:15 12/09/21 09:19 Sodium Chloride IV 12/09/21 12:15 125 mls/hr ONCE@0815 KHARI Administration Insulin Glargine 25 units 12/09/21 22:00 Insulin Glargine 100 Units/Ml SUB-Q QHS KHARI Insulin Human Lispro 0 unit 12/03/21 00:00 12/09/21 06:05 Insulin Lispro 100 Unit/Ml SUB-Q 4 unit Q6HR KHARI Administration Protocol Levalbuterol HCl 0.63 mg 12/02/21 10:00 Levalbuterol 0.63 Mg/3 Ml Nebu IH Q8HRT PRN Shortness Of Breath Lorazepam 1 mg 12/02/21 14:22 12/02/21 15:18 Lorazepam 2 Mg/Ml Vial IV 1 mg Q6H PRN Administration Agitation Magnesium Hydroxide 30 ml 12/02/21 04:37 Magnesium Hydroxide (Mom) Oral Liqd Udc PO Q4H PRN Constipation Metoprolol Tartrate 25 mg 12/02/21 15:00 12/09/21 09:04 Metoprolol Tartrate 25 Mg Tab PO 25 mg QDAY [facility] Administration Metoprolol Tartrate 2.5 mg 12/06/21 11:11 12/07/21 17:48 Metoprolol Tartrate 5 Mg/5 Ml Inj IV 2.5 mg Q6HR PRN Administration Tachycardia Multi-Ingred Cream/Lotion/Oil/Oint 1 applic 12/02/21 17:32 Mineral Oil/Petrolatum, White Ophth Oint 3.5 Gm OU Q4HR PRN Dry Eye(s) Ondansetron HCl 4 mg 12/02/21 04:37 Ondansetron 4 Mg/2 Ml Inj IV Q8H PRN Nausea And Vomiting Pravastatin Sodium 80 mg 12/02/21 22:00 12/08/21 22:29 Pravastatin 80 Mg Tab PO 80 mg QHS [facility] Administration Quetiapine Fumarate 50 mg 12/06/21 22:00 12/08/21 22:29 Quetiapine 25 Mg Tab PO 50 mg QHS [facility] Administration Senna/Docusate Sodium 1 tab 12/02/21 22:00 12/09/21 09:04 Sennosides/Docusate Sodium 8.6/50 Mg Tab FEEDTUBE 1 tab BID KHARI Administration Sodium Chloride 10 ml 12/02/21 10:00 12/09/21 09:04 Sodium Chloride 0.9% 10 Ml Flush Syringe IV 10 ml BID KHARI Administration Sodium Chloride 10 ml 12/02/21 04:37 Sodium Chloride 0.9% 10 Ml Flush Syringe IV PRN PRN LINE FLUSH
--- NOTE | 2021-12-09 11:29 | Progress Note ---
Assessment and Plan - Patient Problems (1) Non-ST elevation myocardial infarction (NSTEMI) Current Visit: Yes Status: Acute Plan to address problem: Patient presented to the hospital with acute pulmonary edema and ECG evidence of ST depression of acute inferior lateral ischemia. Hospital course complicated by the further development of a right upper lobe pneumonia, respiratory failure, currently on the ventilator. Due to the patient's advanced age, frailty, multiple comorbidities, including advanced dementia and end-stage renal failure, she is not a candidate for aggressive and invasive cardiac evaluation and therapies. We will continue supportive management with medical therapy for coronary artery disease and heart failure as tolerated. Echocardiogram shows a severe dilated cardiomyopathy, ejection fraction 30 to 35%. Subjective Date of service: 12/09/21 Principal diagnosis: AHRF; Pulm Edema;Pneumonia; Sepsis; Met. acidosis; Acute Kidney Injury; HTN Interval history: The patient is unresponsive, on the vent. laboratory monitor shows a sinus rhythm with frequent PACs. Objective Vital Signs Temp Pulse Pulse Resp BP Pulse Ox Pulse Ox 12/09/21 11:01 92 H 99/45 94 12/09/21 10:30 86 95/50 95 12/09/21 10:00 91 H 107/48 94 12/09/21 09:30 118 H 118/59 94 12/09/21 09:04 118 H 141/66 12/09/21 09:01 123 H 141/66 96 12/09/21 08:30 123 H 142/63 97 12/09/21 08:00 98 F 125 H 122 H 32 H 137/70 97 12/09/21 07:30 123 H 142/70 96 12/09/21 07:08 125 H 32 H 130/68 96 12/09/21 07:00 123 H 130/68 96 12/09/21 06:30 124 H 139/72 97 12/09/21 06:00 125 H 132/65 96 12/09/21 05:30 121 H 127/67 97 12/09/21 05:00 124 H 132/72 97 12/09/21 04:30 123 H 123/66 96 12/09/21 04:01 120 H 138/75 96 12/09/21 04:00 99.2 F 118 H 21 96 12/09/21 03:54 112 H 123/59 98 12/09/21 03:30 120 H 129/64 98 12/09/21 03:16 100 F H 12/09/21 03:00 118 H 136/72 97 12/09/21 02:30 116 H 131/70 97 12/09/21 02:00 111 H 122/56 98 12/09/21 01:30 118 H 114/54 98 12/09/21 01:00 115 H 116/55 97 12/09/21 00:30 122 H 120/64 96 12/09/21 00:00 100.5 F H 122 H 120 H 22 125/61 96 12/08/21 23:58 123 H 124/64 95 12/08/21 23:30 122 H 125/66 95 12/08/21 23:17 119 H 136/64 95 12/08/21 23:00 114 H 125/65 96 12/08/21 22:30 107 H 134/59 98 12/08/21 22:00 102 H 121/65 98 12/08/21 21:30 102 H 114/58 98 12/08/21 21:00 101 H 110/55 98 12/08/21 20:30 105 H 108/53 97 12/08/21 20:00 104 H 103 H 24 109/56 98 12/08/21 19:54 97.6 F 12/08/21 19:39 110 H 125/68 97 12/08/21 19:30 111 H 125/68 97 12/08/21 19:00 112 H 121/74 97 12/08/21 18:30 106 H 117/60 98 12/08/21 18:00 103 H 115/57 98 12/08/21 17:30 104 H 110/57 98 12/08/21 17:00 105 H 106/60 98 12/08/21 16:30 100 H 115/57 98 12/08/21 16:00 99 F 102 H 119 H 20 116/62 97 12/08/21 15:30 110 H 110/59 98 12/08/21 15:12 109 H 106/57 98 12/08/21 15:00 118 H 106/57 98 12/08/21 14:35 117 H 12/08/21 14:30 110 H 113/58 98 12/08/21 14:00 114 H 106/59 98 12/08/21 13:50 97.9 F 110 H 24 111/58 97 12/08/21 13:30 122 H 101/55 97 12/08/21 13:20 122 H 96/48 12/08/21 13:00 118 H 102/54 98 12/08/21 12:45 127 H 116/64 12/08/21 12:30 128 H 115/68 98 12/08/21 12:15 118 H 122/67 12/08/21 12:00 98.5 F 121 H 119 H 20 120/67 98 12/08/21 11:45 114 H 117/67 12/08/21 11:30 117 H 120/69 98 - Physical Examination General: Cachectic, Other (Unresponsive, intubated, on the vent) HEENT: Positive: Other (Pupils nonreactive) Neck: Positive: neck supple Cardiac: Positive: Irregularly Regular Lungs: Positive: Decreased Breath Sounds Neuro: Positive: Other (Unresponsive, intubated on the vent) Abdomen: Positive: Soft Skin: Positive: Clear Extremities: Absent: edema - Labs and Meds CBC 12/09/21 Range/Units 04:20 WBC 16.4 H (4.5-11.0) K/mm3 RBC 2.91 L (3.65-5.03) M/mm3 Hgb 8.7 L (10.1-14.3) gm/dl Hct 25.9 L (30.3-42.9) % Plt Count 258 (140-440) K/mm3 Comprehensive Metabolic Panel 12/09/21 Range/Units 04:20 Sodium 139 (137-145) mmol/L Potassium 4.1 (3.6-5.0) mmol/L Chloride 98.2 (98-107) mmol/L Carbon Dioxide 22 (22-30) mmol/L BUN 58 H (7-17) mg/dL Creatinine 4.5 H (0.6-1.2) mg/dL Glucose 235 H (65-100) mg/dL Calcium 8.7 (8.4-10.2) mg/dL - Allied health notes Allied health notes reviewed: nursing
[2021-12-09] MEDS ORDERED: SODIUM CHLORIDE 0.9% 500 ML 500 ML IV ONE (13:33)
[2021-12-09] MEDS ORDERED: fentaNYL 100 MCG/2 ML INJ IV PRN (13:35)
[2021-12-09] MEDS: fentaNYL DRIP Premix 2,000 MCG/100 ML BAG IV SCH (13:47)
[2021-12-09] MEDS: NORepinephrine/NS 8 MG-250 ML 8 MG/250 ML INFUS..BTL IV SCH (13:58)
--- NOTE | 2021-12-09 14:09 | Progress Note ---
Assessment and Plan Assessment and plan: This is a 86-year-old female with HTN, DM, PVD, paroxysmal A. fib right AKA initially admitted to the floor for sepsis, RAYNE, pneumonia who required a code met on 12/02 due to acute hypoxic respiratory failure requiring intubation and ventilatory support and transferred to ICU Assessment and plan Neuro: Acute metabolic encephalopathy -Sedated with fentanyl gtt -RASS goal 0 to -1 -Seroquel nightly -Avoid delirium -Reorientation as needed -Maintain sleep-wake cycle -As needed analgesia Cardiac: Elevated proBNP, NSTEMI, h/o HTN, PVD s/p right AKA, cardiomyopathy, paroxysmal atrial fibrillation -Cardiology consulted, appreciate recommendations -Admit proBNP greater than 2000, troponin 2.0 -Blood pressure monitoring per protocol -Resume home Plavix, Pletal, metoprolol -Echocardiogram shows ejection fraction of 30 to 35% with severely dilated cardiomyopathy -No diuretic therapy due to RAYNE -vasopressor support with Levophed and vasopressin Respiratory: Acute hypoxic respiratory failure -CCM consulted, appreciate recommendations -Intubated on 12/02 with 7.50 ETT at 24 the lips -A.m. vent settings: CPAP -See RT notes for titration -A.m. ABG and CXR noted -VAP bundle -SPO2 monitoring GI: NAD -24 hours +1601 -HD removal 1 L yesterday -PPI -NTR consulted for tube feedings -BR: Senokot : Acute kidney injury likely secondary to ATN requiring HD, hypochloremia -Nephrology consulted, appreciate recommendations -Strict intake and output -Renally dose medications -Avoid nephrotoxic medications -Daily weights -S/p Vas-Cath -Initiate hemodialysis on 12/06 -Currently on MWF schedule and as needed per nephrology -Renal ultrasound shows no significant normality ID: Severe sepsis, pneumonia, lactic acidosis -Secondary to pneumonia versus fluid overload with acute respiratory failure and acidosis -Admit CXR with bilateral pulmonary opacities -Infectious disease consulted, appreciate recommendation -Antibiotic therapy with cefepime, complete 5 days -COVID-19 PCR negative -f/u blood culture 12/02 blood culture, sputum culture, urine culture with no growth to date -Monitor WBC and temperature curve Endo: h/o DM type II -Avoid hypoglycemia -SSI -Long-acting insulin, titrate as needed -Accu-Cheks q. 6 Heme: Leukocytosis, anemia -Trend CBC -Epogen per nephrology -Transfuse hemoglobin less than 7 -Monitor for signs of bleeding -SCDs to BLE while in bed The high probability of a clinically significant, sudden or life threatening deterioration of the [multi] system(s) required my full and direct attention, intervention and personal management. The aggregate critical care time was [60] minutes. This time is in addition to time spent performing reported procedures but includes the following: [x] Data Review and interpretation [x] Patient assessment and monitoring of vital signs [x] Documentation [x] Medication orders and management Disposition Plan: icu Total Time Spent with Patient (Minutes): 60 History Interval history: This is a 86-year-old female with HTN, DM, proximal atrial fibrillation right AKA who presented to the emergency department on 12/02 with complaints of shortness of breath ongoing for the past 3 days, productive cough, fever without chills. Patient is medically vaccinated against COVID-19. Recommend emergency department revealed CXR which showed development of bilateral airspace opacities compatible with hepatopulmonary edema, lab work was significant for leukocytosis of 15.4, elevated D-dimer 1461, hypokalemia at 3.5, metabolic acidosis with a CO2 of 4, lactic acidosis at 15.7, elevated proBNP greater than 3500 and elevated troponin of 2.6. Patient was started on antibiotics for possible underlying pneumonia and admitted to the hospital service as a COVID-19 PUI, sepsis with acute renal failure, metabolic acidosis, hypokalemia with consults to ID, nephrology and cardiology. Hospital Course to Date: 12/03: Patient remains intubated and sedated. This am ABG noted, continue to wean Fio2 as tolerated. Patient's renal function continue to worsen, patient currently on bcab gtt per Nephrology. Per Nephro plan for possible discussion with family, patient might require HD. Acidosis is improving continue bcarb and IV abx per ID, trend lactic acid. 12/04: Overnight events noted, remains ST in the 110s this am, BP stable. Renal function continue to worsen, per nursing staff patient's POA is leaning towards HD. Plan for possible family meeting to further discuss patient's goal of care. This am ABG noted, most likely venous, SPO2 is 100%, tolerating vent. Continue to wean Fio2 as tolerated. 12/05: Family meeting with grandson today at the bedside. Thorough discussion with the attending in regards to patient's current status/condition and overall prognosis. Patient's grandson voiced understanding of the info given, stated that he knows his grandma is older but he would like to give her a fighting cassidy ce and want everything done including hemodialysis. Code status was also addressed, patient's POA stated that he would like full resuscitative measures at this time. Patient remains a FULL code. RIJ Vascath inserted, plan for possible HD today per Nephro. 12/06: Patient tolerated first HD treatment yesterday, renal function with some improvement this am. Plan for possible HD again today. Increased agitation overnight, sedation increased, will added low dose Seroquel Qhs. Basal insulin added for hyperglycemia. Continue to wean Fio2 as tolerated per CCM. 12/07: ZANE overnight. Remains on the vent and sedated. Renal function is improving on iHD, still oliguric though. Plan to wean off sedation today or tomorrow if tolerated, possible PST trial in the am. Basal lantus added for hyperglycemia. 12/08: Patient scheduled for hemodialysis today, Palacio catheter will be discontinued and CCM decreased rate with an ABG to be obtained at 1700. 12/09: [facility] would like to obtain left chest ultrasound, reports p.o., was on CPAP trial this morning but goes back to rate due to increased work of breathing and after being switched back patient experienced tachycardia and hypotension, vasopressin and Levophed ordered and placed back on fentanyl drip. Palacio catheter discontinued. Hospitalist Physical - Constitutional Vitals: Temp Pulse Resp BP Pulse Ox 98 F 88 30 H 75/42 95 12/09/21 08:00 12/09/21 14:01 12/09/21 12:00 12/09/21 14:01 12/09/21 14:01 General appearance: Present: no acute distress, other (Intubated and Sedated) - EENT Eyes: Present: PERRL ENT: dentition normal - Neck Neck: Present: normal ROM - Respiratory Respiratory effort: normal Respiratory: bilateral: diminished Details: Labored breathing - Cardiovascular Rhythm: regular Heart Sounds: Present: S1 & S2. Absent: systolic murmur, diastolic murmur - Extremities Extremities: no ischemia, pulses intact, pulses symmetrical, No edema, normal temperature, normal color Peripheral Pulses: within normal limits - Abdominal General gastrointestinal: soft, non-tender, non-distended, normal bowel sounds - Integumentary Integumentary: Present: warm, dry - Psychiatric Psychiatric: other - Neurologic Neurologic: other (Pupils are equal and reactive, intact cough/gag, minimal withdrawal to painful stimuli) HEART Score - HEART Score Troponin: Troponin T 2.500 ng/mL (0.00-0.029) H* 12/02/21 13:51 Results - Labs CBC & Chem 7: 12/09/21 04:20 12/09/21 04:20 Labs: Laboratory Last Values WBC 16.4 K/mm3 (4.5-11.0) H 12/09/21 04:20 RBC 2.91 M/mm3 (3.65-5.03) L 12/09/21 04:20 Hgb 8.7 gm/dl (10.1-14.3) L 12/09/21 04:20 Hct 25.9 % (30.3-42.9) L 12/09/21 04:20 MCV 89 fl (79-97) 12/09/21 04:20 MCH 30 pg (28-32) 12/09/21 04:20 MCHC 34 % (30-34) 12/09/21 04:20 RDW 15.9 % (13.2-15.2) H 12/09/21 04:20 Plt Count 258 K/mm3 (140-440) 12/09/21 04:20 Lymph % (Auto) 6.3 % (13.4-35.0) L 12/02/21 01:24 [place] % (Auto) 11.7 % (0.0-7.3) H 12/02/21 01:24 Eos % (Auto) 0.0 % (0.0-4.3) 12/02/21 01:24 Baso % (Auto) 0.2 % (0.0-1.8) 12/02/21 01:24 Lymph # (Auto) 1.0 K/mm3 (1.2-5.4) L 12/02/21 01:24 [place] # (Auto) 1.8 K/mm3 (0.0-0.8) H 12/02/21 01:24 Eos # (Auto) 0.0 K/mm3 (0.0-0.4) 12/02/21 01:24 Baso # (Auto) 0.0 K/mm3 (0.0-0.1) 12/02/21 01:24 Add Manual Diff Complete 12/03/21 04:00 Total Counted 100 12/03/21 04:00 Seg Neutrophils % 81.8 % (40.0-70.0) H 12/02/21 01:24 Seg Neuts % (Manual) 67.0 % (40.0-70.0) 12/03/21 04:00 Band Neutrophils % 18.0 % 12/03/21 04:00 Lymphocytes % (Manual) 7.0 % (13.4-35.0) L 12/03/21 04:00 Reactive Lymphs % (Man) 0 % 12/03/21 04:00 Monocytes % (Manual) 3.0 % (0.0-7.3) 12/03/21 04:00 Eosinophils % (Manual) 0 % (0.0-4.3) 12/03/21 04:00 Basophils % (Manual) 0 % (0.0-1.8) 12/03/21 04:00 Metamyelocytes % 4.0 % 12/03/21 04:00 Myelocytes % 1.0 % 12/03/21 04:00 Promyelocytes % 0 % 12/03/21 04:00 Blast Cells % 0 % 12/03/21 04:00 Nucleated RBC % Not Reportable 12/03/21 04:00 Seg Neutrophils # 12.6 K/mm3 (1.8-7.7) H 12/02/21 01:24 Seg Neutrophils # Man 4.1 K/mm3 (1.8-7.7) 12/03/21 04:00 Band Neutrophils # 1.1 K/mm3 12/03/21 04:00 Lymphocytes # (Manual) 0.4 K/mm3 (1.2-5.4) L 12/03/21 04:00 Abs React Lymphs (Man) 0.0 K/mm3 12/03/21 04:00 Monocytes # (Manual) 0.2 K/mm3 (0.0-0.8) 12/03/21 04:00 Eosinophils # (Manual) 0.0 K/mm3 (0.0-0.4) 12/03/21 04:00 Basophils # (Manual) 0.0 K/mm3 (0.0-0.1) 12/03/21 04:00 Metamyelocytes # 0.2 K/mm3 12/03/21 04:00 Myelocytes # 0.1 K/mm3 12/03/21 04:00 Promyelocytes # 0.0 K/mm3 12/03/21 04:00 Blast Cells # 0.0 K/mm3 12/03/21 04:00 WBC Morphology Not Reportable 12/03/21 04:00 Hypersegmented Neuts Not Reportable 12/03/21 04:00 Hyposegmented Neuts Not Reportable 12/03/21 04:00 Hypogranular Neuts Not Reportable 12/03/21 04:00 Smudge Cells Not Reportable 12/03/21 04:00 Toxic Granulation Not Reportable 12/03/21 04:00 Toxic Vacuolation Not Reportable 12/03/21 04:00 Dohle Bodies Not Reportable 12/03/21 04:00 Pelger-Huet Anomaly Not Reportable 12/03/21 04:00 Randee Rods Not Reportable 12/03/21 04:00 Platelet Estimate Consistent w auto 12/03/21 04:00 Clumped Platelets Few 12/03/21 04:00 Plt Clumps, EDTA Not Reportable 12/03/21 04:00 Large Platelets Few 12/03/21 04:00 Giant Platelets Not Reportable 12/03/21 04:00 Platelet Satelliting Not Reportable 12/03/21 04:00 Plt Morphology Comment Not Reportable 12/03/21 04:00 RBC Morphology Not Reportable 12/03/21 04:00 Dimorphic RBCs Not Reportable 12/03/21 04:00 Polychromasia Not Reportable 12/03/21 04:00 Hypochromasia Not Reportable 12/03/21 04:00 Poikilocytosis Not Reportable 12/03/21 04:00 Anisocytosis Not Reportable 12/03/21 04:00 Microcytosis Not Reportable 12/03/21 04:00 Macrocytosis Not Reportable 12/03/21 04:00 Spherocytes Not Reportable 12/03/21 04:00 Pappenheimer Bodies Not Reportable 12/03/21 04:00 Sickle Cells Not Reportable 12/03/21 04:00 Target Cells Not Reportable 12/03/21 04:00 Tear Drop Cells Not Reportable 12/03/21 04:00 Ovalocytes Not Reportable 12/03/21 04:00 Helmet Cells Not Reportable 12/03/21 04:00 [place] Bodies Not Reportable 12/03/21 04:00 Danevang Rings Not Reportable 12/03/21 04:00 Ania Cells 1+ 12/03/21 04:00 Bite Cells Not Reportable 12/03/21 04:00 Crenated Cell Not Reportable 12/03/21 04:00 Elliptocytes Not Reportable 12/03/21 04:00 Acanthocytes (Spur) Rare 12/03/21 04:00 Rouleaux Not Reportable 12/03/21 04:00 Hemoglobin C Crystals Not Reportable 12/03/21 04:00 Schistocytes Not Reportable 12/03/21 04:00 Malaria parasites Not Reportable 12/03/21 04:00 Josemanuel Bodies Not Reportable 12/03/21 04:00 Hem Pathologist Commnt No 12/03/21 04:00 PT 15.9 Sec. (12.2-14.9) H 12/02/21 01:24 INR 1.15 (0.87-1.13) H 12/02/21 01:24 APTT 31.5 Sec. (24.2-36.6) 12/02/21 01:24 D-Dimer 1461.68 ng/mlDDU (0-234) H 12/02/21 04:18 ABG pH 7.511 pH Units (7.350-7.450) H 12/09/21 08:45 ABG pCO2 30.5 mm Hg 12/09/21 08:45 ABG pO2 74.1 mm Hg (80.0-90.0) L 12/09/21 08:45 ABG HCO3 23.9 mmol/L (20.0-26.0) 12/09/21 08:45 ABG O2 Saturation 97.0 % (95.0-99.0) 12/09/21 08:45 ABG O2 Content 8.6 (0.0-44) 12/09/21 08:45 ABG Base Excess 0.8 mmol/L (-2.0-3.0) 12/09/21 08:45 ABG Hemoglobin 6.4 gm/dl (12.0-16.0) L 12/09/21 08:45 ABG Carboxyhemoglobin 1.5 % (0.0-5.0) 12/09/21 08:45 ABG Methemoglobin 0.3 % (0.0-1.5) 12/09/21 08:45 VBG pH 7.167 (7.320-7.420) L* 12/02/21 01:24 Oxyhemoglobin 95.2 % (95.0-99.0) 12/09/21 08:45 FiO2 40 % 12/09/21 08:45 Sodium 139 mmol/L (137-145) 12/09/21 04:20 Potassium 4.1 mmol/L (3.6-5.0) 12/09/21 04:20 Chloride 98.2 mmol/L (98-107) 12/09/21 04:20 Carbon Dioxide 22 mmol/L (22-30) 12/09/21 04:20 Anion Gap 23 mmol/L 12/09/21 04:20 BUN 58 mg/dL (7-17) H 12/09/21 04:20 Creatinine 4.5 mg/dL (0.6-1.2) H 12/09/21 04:20 Estimated GFR 9 ml/min 12/09/21 04:20 BUN/Creatinine Ratio 13 % 12/09/21 04:20 Glucose 235 mg/dL (65-100) H 12/09/21 04:20 POC Glucose 195 mg/dL (70-105) H 12/09/21 11:47 Lactic Acid 4.60 mmol/L (0.7-2.0) H* 12/04/21 04:18 Calcium 8.7 mg/dL (8.4-10.2) 12/09/21 04:20 Phosphorus 2.40 mg/dL (2.5-4.5) L D 12/09/21 04:20 Magnesium 2.20 mg/dL (1.7-2.3) 12/09/21 04:20 Ferritin 168.9 ng/mL (10.0-200.0) 12/02/21 04:18 Total Bilirubin 0.40 mg/dL (0.1-1.2) 12/02/21 01:24 AST 86 units/L (5-40) H 12/02/21 01:24 ALT 69 units/L (7-56) H 12/02/21 01:24 Alkaline Phosphatase 91 units/L (35-129) 12/02/21 01:24 Lactate Dehydrogenase 958 units/L (91-180) H 12/02/21 04:18 Total Creatine Kinase 254 units/L (30-135) H 12/02/21 01:24 CK-MB (CK-2) 20.2 ng/mL (0.0-4.0) H 12/02/21 01:24 CK-MB (CK-2) Rel Index 7.9 (0-4) H 12/02/21 01:24 Troponin T 2.500 ng/mL (0.00-0.029) H* 12/02/21 13:51 C-Reactive Protein 6.60 mg/dL (0.00-1.30) H 12/02/21 04:18 NT-Pro-B Natriuret Pep > 3500 pg/mL (0-900) H 12/02/21 01:24 Total Protein 7.7 g/dL (6.3-8.2) 12/02/21 01:24 Albumin 4.0 g/dL (3.9-5) 12/02/21 01:24 Albumin/Globulin Ratio 1.1 % 12/02/21 01:24 Triglycerides 112 mg/dL (2-149) 12/08/21 04:00 Cholesterol 177 mg/dL (50-199) 12/02/21 01:24 LDL Cholesterol Direct 91 mg/dL (50-130) 12/02/21 01:24 HDL Cholesterol 74 mg/dL (40-59) H 12/02/21 01:24 Cholesterol/HDL Ratio 2.39 % 12/02/21 01:24 Procalcitonin 1.24 ng/mL (<0.15) 12/02/21 04:18 Urine Color Yellow (Yellow) 12/03/21 13:48 Urine Turbidity Hazy (Clear) 12/03/21 13:48 Urine pH 7.0 (5.0-7.0) 12/03/21 13:48 Ur Specific [place] 1.009 (1.003-1.030) 12/03/21 13:48 Urine Protein >500 mg/dL (Negative) 12/03/21 13:48 Urine Glucose (UA) 50 mg/dL (Negative) 12/03/21 13:48 Urine Ketones Neg mg/dL (Negative) 12/03/21 13:48 Urine Blood Mod (Negative) 12/03/21 13:48 Urine Nitrite Neg (Negative) 12/03/21 13:48 Urine Bilirubin Neg (Negative) 12/03/21 13:48 Urine Urobilinogen < 2.0 mg/dL (<2.0) 12/03/21 13:48 Ur Leukocyte Esterase Neg (Negative) 12/03/21 13:48 Urine WBC (Auto) 9.0 /HPF (0.0-6.0) H 12/03/21 13:48 Urine RBC (Auto) 5.0 /HPF (0.0-6.0) 12/03/21 13:48 U Epithel Cells (Auto) 2.0 /HPF (0-13.0) 12/03/21 13:48 Urine Bacteria (Auto) 1+ /HPF (Negative) 12/02/21 00:52 Urine Mucus Few /HPF 12/03/21 13:48 Urine Yeast (Budding) Few /HPF 12/02/21 00:52 Urine Creatinine 24.4 mg/dL (0.1-20.0) H 12/02/21 00:52 Protein/Creatinin Ratio 4.55 12/02/21 00:52 Urine Sodium 109 mmol/L 12/02/21 00:52 Urine Total Protein 111 mg/dL (5-11.8) H 12/02/21 00:52 Random Vancomycin 14.0 ug/mL (0-40.0) 12/05/21 04:22 Coronavirus (PCR) Negative (Negative) 12/02/21 09:00 Hepatitis A IgM Ab Non-reactive (NonReactive) 12/05/21 04:22 Hep Bs Antigen Non-reactive (Negative) 12/05/21 04:22 Hep B Core IgM Ab Non-reactive (NonReactive) 12/05/21 04:22 Hepatitis C Antibody Non-reactive (NonReactive) 12/05/21 04:22 Palacio/IV: Voiding Method Indwelling Catheter Active Medications - Current Medications Current Medications: Generic Name Dose Route Start Last Admin Trade Name Freq PRN Reason Stop Dose Admin Acetaminophen 650 mg 12/02/21 04:37 12/07/21 04:58 Acetaminophen 325 Mg Tab PO 650 mg Q4H PRN Administration Pain MILD(1-3)/Fever >100.5/HYLTON Alprazolam 0.5 mg 12/02/21 11:30 12/05/21 04:40 Alprazolam 0.5 Mg Tab PO 0.5 mg Q8H PRN Administration Anxiety Aspirin 81 mg 12/03/21 10:00 12/09/21 09:04 Aspirin 81 Mg Tab Chew PO 81 mg QDAY KHARI Administration Cilostazol 50 mg 12/02/21 22:00 12/09/21 09:03 Cilostazol 100 Mg Tab PO 50 mg BID KHARI Administration Clopidogrel Bisulfate 75 mg 12/03/21 10:00 12/09/21 09:04 Clopidogrel 75 Mg Tab PO 75 mg QDAY KHARI Administration Dextrose 0 ml 12/02/21 05:10 Dextrose 10% *Hypoglycemia IV PRN PRN Hypoglycemia Protocol Epoetin Lenny-epbx 10,000 unit 12/05/21 10:00 12/08/21 13:00 Epoetin Lenny-Epbx 10,000 Unit/1 Ml Vial IV 10,000 unit ED PRN Administration hemodialysis Famotidine 10 mg 12/04/21 22:00 12/09/21 09:04 Famotidine 10 Mg Tab PO 10 mg BID KHARI Administration Fentanyl 50 mcg 12/09/21 13:35 Fentanyl 100 Mcg/2 Ml Inj IV Q10MIN PRN ANALGESIA Heparin Sodium (Porcine) 5,000 unit 12/02/21 06:00 12/09/21 13:51 Heparin 5,000 Unit/1 Ml Vial SUB-Q 5,000 unit Q8HR KHARI Administration Hydrophilic Ointment 1 applic 12/02/21 17:32 Lip Therapy Vaseline TP Q2HR PRN Dry Lips Propofol 1,000 mg in 100 mls @ 1.839 mls/hr 12/02/21 18:00 12/09/21 09:06 Diprivan 10 Mg/Ml IV 0 mcg/kg/min TITR KHARI 0 mls/hr Titration Protocol 5 MCG/KG/MIN Sodium Chloride 100 mls @ 999 mls/hr 12/07/21 15:36 Nacl 0.9% IV ED PRN Hypotension Fentanyl Citrate 2,000 mcg in 100 mls @ 3.25 mls/hr 12/09/21 14:00 12/09/21 13:47 Fentanyl Drip Premix IV 1 mcg/kg/hr TITR KHARI 3.25 mls/hr Administration Protocol 1 MCG/KG/HR Vasopressin 20 unit/ Sodium 101 mls @ 9.09 mls/hr 12/09/21 14:00 Chloride IV TITR KHARI Protocol 0.03 UNITS/MIN NORepinephrine/NS 8 MG-250 ML 8 mg in 250 mls @ 3.75 mls/hr 12/09/21 14:00 12/09/21 13:58 Norepinephrine/Ns 8 Mg-250 Ml (Double Conc) IV 5 mcg/min TITRATE KHARI 9.375 mls/hr Administration Protocol 2 MCG/MIN Insulin Glargine 25 units 12/09/21 22:00 Insulin Glargine 100 Units/Ml SUB-Q QHS [facility] Insulin Human Lispro 0 unit 12/03/21 00:00 12/09/21 12:10 Insulin Lispro 100 Unit/Ml SUB-Q 3 unit Q6HR [facility] Administration Protocol Levalbuterol HCl 0.63 mg 12/02/21 10:00 Levalbuterol 0.63 Mg/3 Ml Nebu IH Q8HRT PRN Shortness Of Breath Lorazepam 1 mg 12/02/21 14:22 12/02/21 15:18 Lorazepam 2 Mg/Ml Vial IV 1 mg Q6H PRN Administration Agitation Magnesium Hydroxide 30 ml 12/02/21 04:37 Magnesium Hydroxide (Mom) Oral Liqd Udc PO Q4H PRN Constipation Metoprolol Tartrate 25 mg 12/02/21 15:00 12/09/21 09:04 Metoprolol Tartrate 25 Mg Tab PO 25 mg QDAY [facility] Administration Metoprolol Tartrate 2.5 mg 12/06/21 11:11 12/07/21 17:48 Metoprolol Tartrate 5 Mg/5 Ml Inj IV 2.5 mg Q6HR PRN Administration Tachycardia Multi-Ingred Cream/Lotion/Oil/Oint 1 applic 12/02/21 17:32 Mineral Oil/Petrolatum, White Ophth Oint 3.5 Gm OU Q4HR PRN Dry Eye(s) Ondansetron HCl 4 mg 12/02/21 04:37 Ondansetron 4 Mg/2 Ml Inj IV Q8H PRN Nausea And Vomiting Pravastatin Sodium 80 mg 12/02/21 22:00 12/08/21 22:29 Pravastatin 80 Mg Tab PO 80 mg QHS KHARI Administration Quetiapine Fumarate 50 mg 12/06/21 22:00 12/08/21 22:29 Quetiapine 25 Mg Tab PO 50 mg QHS KHARI Administration Senna/Docusate Sodium 1 tab 12/02/21 22:00 12/09/21 09:04 Sennosides/Docusate Sodium 8.6/50 Mg Tab FEEDTUBE 1 tab BID KHARI Administration Sodium Chloride 10 ml 12/02/21 10:00 12/09/21 09:04 Sodium Chloride 0.9% 10 Ml Flush Syringe IV 10 ml BID KHARI Administration Sodium Chloride 10 ml 12/02/21 04:37 Sodium Chloride 0.9% 10 Ml Flush Syringe IV PRN PRN LINE FLUSH Nutrition/Malnutrition Assess - Dietary Evaluation Nutrition/Malnutrition Findings: Nutrition Notes Start: 12/03/21 16:28 Freq: Status: Active Protocol: Document 12/06/21 16:59 ONI (Rec: 12/06/21 17:19 ONI [id number]) Nutrition Notes Initial or Follow up Brief Note Current Diagnosis Acute Kidney Injury,Diabetes, Sepsis,Hypertension, Respiratory Failure, Hyperlipidemia Other Pertinent Diagnosis Pneumonia, Lactic Acidosis, Metabolic Acidosis, RAYNE+HD, PVD, R-AKA. Current Diet TF-Nepro w/CARBSTEADY @ 30 ml/ hr (since D 12/05). Height 5 ft 4 in Weight 61.3 kg [place] Body Weight (kg) 54.54 BMI 23.1 Weight change and time frame No body weight change reported . Weight Status Appropriate Subjective/Other Information RD consult for routine F/U on TF tolerance. TF infusing as prescribed. No report available on tolerance. Pt continues on Mechanical Ventilation. Percent of energy/protein needs met: Prescribed TF-Nepro w/ CARBSTEADY @ 30 ml/hr provides for energy/protein needs (1, 296 Kcal/58 g) -in addition, Propofol adds 49 Kcal- during LOS, 108% Kcal; 78% AA. #1 Nutrition Diagnosis Inadequate oral intake Diagnosis Progress(for reassessment Continues documentation) Is patient on ventilator? Yes Is Patient Ambulatory and/or Out of Bed No REE-([place]-St Jeor-confined to bed) [phone] [facility]culation [facility] Additional Notes Protein: >1.2 g/Kg; >74 g/day. Fluids: 1 ml/Kcal, or as per MD. Nutrition Intervention Nutrition Support: Nepro w/CARBSTEADY @ 30 ml/hr. Flush: 130 ml water Q 4 hr, or as per MD. Kcal 1,296 Protein (gm) 58 Carbohydrates (gm) 116 Fat (gm) 69 Fluid (mL) 523 Fiber (gm) 9 % RDI: 104% Kcal; 78% AA. Goal #1 Provide at least 75% of energy /protein needs through Enteral Feeding during LOS. Goal #2 Maintain body weight within +/ -3% of admission body weight during LOS. Follow-Up By: 12/12/21 Additional Comments Continue monitoring TF tolerance and BM.
[2021-12-09] MEDS: VASOPRESSIN 20 UNIT in SODIUM CHLORIDE 0.9% 100 ML IV SCH (14:37)
--- NOTE | 2021-12-09 16:06 | Progress Note ---
Assessment and Plan Cultures: 12/02/2021 blood culture: no growth COVID-19 PCR: negative 12/02/2021 sputum culture: Usual respiratory mahesh 12/02/2021 urine culture: no growth A/P: 86-year-old female with hypertension, diabetes, peripheral vascular disease, prior right AKA admitted with shortness of breath: #Severe sepsis, secondary to pneumonia v/s fluid overload, acute respiratory failure: on the vent. #Severe metabolic acidosis, lactic acidosis #Acute renal failure: Renally adjust antibiotics. Planned for HD. #Acute encephalopathy: Likely metabolic. Recs: -Completed 5 days cefepime -If white count gets higher tomorrow, would re-start G. Dayana Flynn MD [facility] ([facility] O: [phone] F: [phone] Subjective Date of service: 12/09/21 Principal diagnosis: AHRF; Pulm Edema;Pneumonia; Sepsis; Met. acidosis; Acute Kidney Injury; HTN Interval history: Febrile overnight to 100.5 with a white count of 16.4 which is slightly higher than yesterday. Imaging personally reviewed: Chest x-ray: Interval worsening. Objective - Exam Narrative Exam: Physical Exam: Constitutional: sedated, intubated, on the vent Head, Ears, Nose: Normocephalic, atraumatic. External ears, nose normal Eyes: Conjunctivae/corneas clear. No icterus. No ptosis. Neck: intubated Oral: intubated Cardiovascular: S1, S2 + Respiratory: AE fair bilaterally and equal GI: Soft, bowel sounds hypo Musculoskeletal: No pedal edema, no cyanosis. R AKA well healed Skin: No rash or abscess Hem/Lymphatic: No palpable cervical or supraclavicular nodes. No lymphangitis Psych: no agitation Neurological: sedated, intubated, on the vent, exam limited - Constitutional Vitals: Vital Signs Temp Pulse Resp BP Pulse Ox 98.7 F 106 H 30 H 104/55 97 12/09/21 12:00 12/09/21 15:00 12/09/21 12:00 12/09/21 15:00 12/09/21 15:00 Temperature -Last 24 Hours Temperature 98.7 F Temperature 98 F Temperature 99.2 F Temperature 100 F Temperature 100.5 F Temperature 97.6 F - Labs CBC & Chem 7: 02/22/22 04:20 12/09/21 04:20 Labs: Abnormal lab results 12/08/21 12/08/21 12/09/21 Range/Units 16:53 19:56 00:16 WBC (4.5-11.0) K/mm3 RBC (3.65-5.03) M/mm3 Hgb (10.1-14.3) gm/dl Hct (30.3-42.9) % RDW (13.2-15.2) % ABG pH (7.350-7.450) pH Units ABG pO2 (80.0-90.0) mm Hg ABG Hemoglobin (12.0-16.0) gm/dl BUN (7-17) mg/dL Creatinine (0.6-1.2) mg/dL Glucose (65-100) mg/dL POC Glucose 240 H 236 H 243 H (70-105) mg/dL Phosphorus (2.5-4.5) mg/dL 12/09/21 12/09/21 12/09/21 Range/Units 04:20 04:20 05:19 WBC 16.4 H (4.5-11.0) K/mm3 RBC 2.91 L (3.65-5.03) M/mm3 Hgb 8.7 L (10.1-14.3) gm/dl Hct 25.9 L (30.3-42.9) % RDW 15.9 H (13.2-15.2) % ABG pH (7.350-7.450) pH Units ABG pO2 (80.0-90.0) mm Hg ABG Hemoglobin (12.0-16.0) gm/dl BUN 58 H (7-17) mg/dL Creatinine 4.5 H (0.6-1.2) mg/dL Glucose 235 H (65-100) mg/dL POC Glucose 217 H (70-105) mg/dL Phosphorus 2.40 L D (2.5-4.5) mg/dL 12/09/21 12/09/21 Range/Units 08:45 11:47 WBC (4.5-11.0) K/mm3 RBC (3.65-5.03) M/mm3 Hgb (10.1-14.3) gm/dl Hct (30.3-42.9) % RDW (13.2-15.2) % ABG pH 7.511 H (7.350-7.450) pH Units ABG pO2 74.1 L (80.0-90.0) mm Hg ABG Hemoglobin 6.4 L (12.0-16.0) gm/dl BUN (7-17) mg/dL Creatinine (0.6-1.2) mg/dL Glucose (65-100) mg/dL POC Glucose 195 H (70-105) mg/dL Phosphorus (2.5-4.5) mg/dL
[2021-12-09] MEDS: PRAVASTATIN 80 MG TAB PO SCH (21:17)
[2021-12-09] MEDS: INSULIN GLARGINE 100 UNITS/ML SUB-Q SCH (21:30)
[2021-12-09] MEDS: QUEtiapine 25 MG TAB PO SCH (21:30)
[2021-12-10] MEDS: fentaNYL DRIP Premix 2,000 MCG/100 ML BAG IV SCH (04:29)
[2021-12-10] MEDS: VASOPRESSIN 20 UNIT in SODIUM CHLORIDE 0.9% 100 ML IV SCH ×2 (04:39→18:01)
[2021-12-10 04:46] LABS: Hematocrit 24.4 % (30.3-42.9); Hemoglobin 7.9 gm/dl (10.1-14.3); Mean Corpuscular HGB Conc 32 % (30-34); Mean Corpuscular Volume 90 fl (79-97); Platelet Count 257 K/mm3 (140-440); Red Blood Count 2.72 M/mm3 (3.65-5.03)
[2021-12-10 05:07] LABS: Calcium 8.2 mg/dL (8.4-10.2)
[2021-12-10] MEDS: INSULIN LISPRO 100 UNIT/ML SUB-Q SCH ×3 (05:25→17:51)
[2021-12-10] MEDS: HEPARIN 5,000 UNIT/1 ML VIAL SUB-Q SCH ×3 (05:26→21:16)
[2021-12-10] MEDS: METOPROLOL TARTRATE 25 MG TAB PO SCH (09:12)
[2021-12-10] MEDS: CLOPIDOGREL 75 MG TAB PO SCH (09:12)
[2021-12-10] MEDS: FAMOTIDINE 10 MG TAB PO SCH ×2 (09:12→21:17)
[2021-12-10] MEDS: ASPIRIN 81 MG TAB CHEW PO SCH (09:12)
[2021-12-10] MEDS: SENNOSIDES/DOCUSATE SODIUM 8.6/50 MG TAB FEEDTUBE SCH ×2 (09:12→21:18)
[2021-12-10] MEDS ORDERED: LACTATED RINGERS 1,000 ML IV ONE (09:30)
[2021-12-10] MEDS: CILOSTAZOL 100 MG TAB PO SCH ×2 (09:31→21:16)
--- NOTE | 2021-12-10 09:48 | Progress Note ---
Assessment and Plan Impression: * Oligoanuric acute kidney injury secondary to ATN --HD initiation on Dec 06 * Metabolic acidosis, severe * Lactic acidosis * Acute hypoxic respiratory failure * Sepsis - ?bilateral PNA * NSTEMI Plan: * Plan for HD to continue MWF schedule or prn, next HD today * UF as tolerated * Monitor for evidence of renal recovery- no sign of recovery with minimal urine output, uptrending creatinine off HD, acidosis * Vent management per pulmonary * Cardiology recommendations reviewed * Abx per primary team/ID * Dose medications for renal * Avoid potential nephrotoxins * Strict I/O Subjective Date of service: 12/10/21 Principal diagnosis: AHRF; Pulm Edema;Pneumonia; Sepsis; Met. acidosis; Acute Kidney Injury; HTN Interval history: No acute events. Patient remains intubated - TV 400, FiO2 40%, PEEP 6 Remains with minimal urine output Objective - Exam Narrative Exam: General appearance: well-developed, well-nourished, intubated EENT: ATNC, other (ETT in place) Respiratory: Present: Other (coarse BS) Cardiology: regular, S1S2 Gastrointestinal: hypoactive bowel sounds, no distended Integumentary: no rash, warm and dry Neurologic: other (sedated) Skin: intact - Vital Signs Vital signs: Vital Signs - 12hr 12/09/21 12/09/21 12/09/21 22:00 22:30 23:00 Temperature Pulse Rate 97 H 96 H 103 H Pulse Rate [ From Monitor] Respiratory Rate Blood Pressure 114/55 115/52 122/62 O2 Sat by Pulse 95 95 96 Oximetry 12/09/21 12/10/21 12/10/21 23:30 00:00 00:02 Temperature 98.3 F Pulse Rate 92 H 90 94 H Pulse Rate [ 89 From Monitor] Respiratory 25 H Rate Blood Pressure 90/44 86/40 95/45 O2 Sat by Pulse 94 94 95 Oximetry 12/10/21 12/10/21 12/10/21 00:30 01:00 01:30 Temperature Pulse Rate 95 H 92 H 93 H Pulse Rate [ From Monitor] Respiratory Rate Blood Pressure 97/46 95/48 91/47 O2 Sat by Pulse 94 95 95 Oximetry 12/10/21 12/10/21 12/10/21 02:00 02:30 03:00 Temperature Pulse Rate 91 H 93 H 95 H Pulse Rate [ From Monitor] Respiratory Rate Blood Pressure 94/51 91/45 91/40 O2 Sat by Pulse 94 93 94 Oximetry 12/10/21 12/10/21 12/10/21 03:30 04:00 04:07 Temperature 99.4 F Pulse Rate 84 86 87 Pulse Rate [ 95 H From Monitor] Respiratory 28 H Rate Blood Pressure 90/43 97/46 97/46 O2 Sat by Pulse 94 94 94 Oximetry 12/10/21 12/10/21 12/10/21 04:30 05:00 05:30 Temperature Pulse Rate 100 H 94 H 94 H Pulse Rate [ From Monitor] Respiratory Rate Blood Pressure 106/47 105/43 96/50 O2 Sat by Pulse 94 94 Oximetry 12/10/21 12/10/21 12/10/21 06:00 06:30 07:00 Temperature Pulse Rate 95 H 90 85 Pulse Rate [ From Monitor] Respiratory Rate Blood Pressure 107/52 98/38 98/44 O2 Sat by Pulse 95 93 94 Oximetry 12/10/21 12/10/21 12/10/21 07:16 07:27 07:30 Temperature 99.0 F Pulse Rate 91 H 93 H Pulse Rate [ 91 H From Monitor] Respiratory 22 Rate Blood Pressure 111/46 O2 Sat by Pulse 94 93 Oximetry 12/10/21 12/10/21 12/10/21 08:00 08:30 09:00 Temperature Pulse Rate 93 H 86 89 Pulse Rate [ From Monitor] Respiratory Rate Blood Pressure 109/49 104/45 102/45 O2 Sat by Pulse 94 94 93 Oximetry 12/10/21 09:12 Temperature Pulse Rate 93 H Pulse Rate [ From Monitor] Respiratory Rate Blood Pressure 102/45 O2 Sat by Pulse Oximetry - Lab 12/10/21 04:30 12/10/21 04:30 Most recent lab results ABG pH 7.511 pH Units (7.350-7.450) H 12/09/21 08:45 ABG pCO2 30.5 mm Hg 12/09/21 08:45 ABG pO2 74.1 mm Hg (80.0-90.0) L 12/09/21 08:45 ABG HCO3 23.9 mmol/L (20.0-26.0) 12/09/21 08:45 ABG O2 Saturation 97.0 % (95.0-99.0) 12/09/21 08:45 Calcium 8.2 mg/dL (8.4-10.2) L 12/10/21 04:30 Phosphorus 6.70 mg/dL (2.5-4.5) H D 12/10/21 04:30 Magnesium 2.20 mg/dL (1.7-2.3) 12/09/21 04:20 Urine Creatinine 24.4 mg/dL (0.1-20.0) H 12/02/21 00:52 Urine Sodium 109 mmol/L 12/02/21 00:52 Urine Total Protein 111 mg/dL (5-11.8) H 12/02/21 00:52 Medications & Allergies - Medications Allergies/Adverse Reactions: Allergies No Known Allergies Allergy (Verified 12/09/21 09:39) Home Medications: Home Medications Medication Instructions Recorded Confirmed Last Taken Type Gabapentin 300 mg PO BID 04/05/19 04/06/19 Unknown History Metoprolol [Lopressor TAB] 25 mg PO QDAY 04/05/19 04/06/19 Unknown History Simvastatin 40 mg PO QHS 04/05/19 04/06/19 Unknown History Vitamin D2 50,000 units PO QWEEK 04/05/19 04/06/19 Unknown History amLODIPine 10 mg PO DAILY 04/05/19 04/05/19 Unknown History metFORMIN [Glucophage] 500 mg PO QHS 04/05/19 04/06/19 Unknown History raNITIdine HCl [Zantac] 300 mg PO QDAY 04/05/19 04/06/19 Unknown History Aspirin [Aspirin BABY CHEW TAB] 81 mg PO QDAY #30 tab.chew 04/12/19 Unknown Rx Clopidogrel [Plavix] 75 mg PO QDAY #30 tablet 04/12/19 Unknown Rx cilostazoL [Pletal] 50 mg PO BID #30 tablet 04/12/19 Unknown Rx oxyCODONE /ACETAMINOPHEN [Percocet 2 tab PO Q6H PRN #20 tablet 04/12/19 Unknown Rx 5/325 mg] Active Medications: Generic Name Dose Route Start Last Admin Trade Name Freq PRN Reason Stop Dose Admin Acetaminophen 650 mg 12/02/21 04:37 12/07/21 04:58 Acetaminophen 325 Mg Tab PO 650 mg Q4H PRN Administration Pain MILD(1-3)/Fever >100.5/HYLTON Aspirin 81 mg 12/03/21 10:00 12/10/21 09:12 Aspirin 81 Mg Tab Chew PO 81 mg QDAY KHARI Administration Cilostazol 50 mg 12/02/21 22:00 12/10/21 09:31 Cilostazol 100 Mg Tab PO 50 mg BID KHARI Administration Clopidogrel Bisulfate 75 mg 12/03/21 10:00 12/10/21 09:12 Clopidogrel 75 Mg Tab PO 75 mg QDAY KHARI Administration Dextrose 0 ml 12/02/21 05:10 Dextrose 10% *Hypoglycemia IV PRN PRN Hypoglycemia Protocol Epoetin Lenny-epbx 10,000 unit 12/05/21 10:00 12/08/21 13:00 Epoetin Lenny-Epbx 10,000 Unit/1 Ml Vial IV 10,000 unit ED PRN Administration hemodialysis Famotidine 10 mg 12/04/21 22:00 12/10/21 09:12 Famotidine 10 Mg Tab PO 10 mg BID KHARI Administration Fentanyl 50 mcg 12/09/21 13:35 Fentanyl 100 Mcg/2 Ml Inj IV Q10MIN PRN ANALGESIA Heparin Sodium (Porcine) 5,000 unit 12/02/21 06:00 12/10/21 05:26 Heparin 5,000 Unit/1 Ml Vial SUB-Q 5,000 unit Q8HR KHARI Administration Hydrophilic Ointment 1 applic 12/02/21 17:32 Lip Therapy Vaseline TP Q2HR PRN Dry Lips Propofol 1,000 mg in 100 mls @ 1.839 mls/hr 12/02/21 18:00 12/10/21 07:00 Diprivan 10 Mg/Ml IV 0 mcg/kg/min TITR KHARI 0 mls/hr Titration Protocol 5 MCG/KG/MIN Sodium Chloride 100 mls @ 999 mls/hr 12/07/21 15:36 Nacl 0.9% IV ED PRN Hypotension Fentanyl Citrate 2,000 mcg in 100 mls @ 3.25 mls/hr 12/09/21 14:00 12/10/21 06:32 Fentanyl Drip Premix IV 1 mcg/kg/hr TITR KHARI 3.25 mls/hr Titration Protocol 1 MCG/KG/HR Vasopressin 20 unit/ Sodium 101 mls @ 9.09 mls/hr 12/09/21 14:00 12/10/21 04:39 Chloride IV 0.03 units/min TITR KHARI 9.09 mls/hr Administration Protocol 0.03 UNITS/MIN NORepinephrine/NS 8 MG-250 ML 8 mg in 250 mls @ 3.75 mls/hr 12/09/21 14:00 12/10/21 09:13 Norepinephrine/Ns 8 Mg-250 Ml (Double Conc) IV 1 mcg/min TITRATE KHARI 1.875 mls/hr Titration Protocol 2 MCG/MIN Cefepime HCl 1 gm in 100 mls @ 200 mls/hr 12/10/21 18:00 Cefepime/Ns 1 Gm/100 Ml IV QPM [facility] Protocol Insulin Glargine 25 units 12/09/21 22:00 12/09/21 21:30 Insulin Glargine 100 Units/Ml SUB-Q 25 units QHS [facility] Administration Insulin Human Lispro 0 unit 12/03/21 00:00 12/10/21 05:25 Insulin Lispro 100 Unit/Ml SUB-Q 3 unit Q6HR [facility] Administration Protocol Levalbuterol HCl 0.63 mg 12/02/21 10:00 Levalbuterol 0.63 Mg/3 Ml Nebu IH Q8HRT PRN Shortness Of Breath Magnesium Hydroxide 30 ml 12/02/21 04:37 Magnesium Hydroxide (Mom) Oral Liqd Udc PO Q4H PRN Constipation Metoprolol Tartrate 25 mg 12/02/21 15:00 12/10/21 09:12 Metoprolol Tartrate 25 Mg Tab PO Not Given QDAY [facility] Metoprolol Tartrate 2.5 mg 12/06/21 11:11 12/07/21 17:48 Metoprolol Tartrate 5 Mg/5 Ml Inj IV 2.5 mg Q6HR PRN Administration Tachycardia Multi-Ingred Cream/Lotion/Oil/Oint 1 applic 12/02/21 17:32 Mineral Oil/Petrolatum, White Ophth Oint 3.5 Gm OU Q4HR PRN Dry Eye(s) Ondansetron HCl 4 mg 12/02/21 04:37 Ondansetron 4 Mg/2 Ml Inj IV Q8H PRN Nausea And Vomiting Pravastatin Sodium 80 mg 12/02/21 22:00 12/09/21 21:17 Pravastatin 80 Mg Tab PO 80 mg QHS [facility] Administration Quetiapine Fumarate 50 mg 12/06/21 22:00 12/09/21 21:30 Quetiapine 25 Mg Tab PO 50 mg QHS KHARI Administration Senna/Docusate Sodium 1 tab 12/02/21 22:00 12/10/21 09:12 Sennosides/Docusate Sodium 8.6/50 Mg Tab FEEDTUBE 1 tab BID KHARI Administration Sodium Chloride 10 ml 12/02/21 10:00 12/10/21 09:12 Sodium Chloride 0.9% 10 Ml Flush Syringe IV 10 ml BID KHARI Administration Sodium Chloride 10 ml 12/02/21 04:37 Sodium Chloride 0.9% 10 Ml Flush Syringe IV PRN PRN LINE FLUSH
--- NOTE | 2021-12-10 10:41 | Progress Note ---
Assessment and Plan Acute Hypoxemic Respiratory Failure s/p MVS Pulmonary Edema Vs Pneumonia Severe Sepsis Pneumonia Leukocytosis-improved Lactic Acidosis/Metabolic acidosis Acute Kidney Injury([facility]) Hypokalemia Acute Metabolic Acidosis Hypertension Elevated BNP Elevated troponin Elevated D-dimer DM II - get CT brain - follow US chest - get Procalcitonin level and lactate to aid clinical decision making re: leucocytosis - get CT Head re: AMS - rectal tube placed for copious diarrhea - continue care as below otherwise; - continue HD/UF for toxin and volume clearance - continue daily SAT and SBT assessment as tolerated - continue to wean supplemental oxygen for target O2 sat's > 90% acutely - VAP bundle addressed - continue lung protective strategies - continue bronchodilators with pulmonary hygiene per RT - wean per pulmonary driven protocols otherwise - avoid nephrotoxins, renally dose all medications - continue accuchecks with glycemic control per SSI (While critically ill target blood glucose of 140-180 mg/dL; avoid hypoglycemia) - sedation prn for target RASS 0 to -1 - continue to avoid benzodiazepine's, reduce the possibility of delirium - AB's per ID rec's - prn analgesia per CPOT score - Maintenance of sleep-wake cycle, avoid delirium - continue enteral nutritional support at goal rate as tolerated - G.I. & VTE prophylaxis - PT/OT/ROM exercises - continue mobility protocols for pressure ulcer prophylaxis - Monitor hemodynamics closely - continue other care per attending / other consultants - discharge planning ongoing concurrently COVID SPECIFIC INTERVENTIONS - COVID-19 PCR negative .... Re-evaluate in am & prn CONDITION: CRITICAL PROGNOSIS: GUARDED CODE STATUS: FULL CODE The high probability of a clinically significant, sudden or life-threatening deterioration of the [respiratory, cardiovascular, renal & neurologic] system(s) required my full and direct attention, intervention and personal management. The aggregate critical care time was [37] minutes without overlap. Time includes sp ent on; [x] Data Review and interpretation [x] Patient assessment and monitoring of vital signs [x] Documentation [x] Medication orders and management Subjective Date of service: 12/10/21 Principal diagnosis: AHRF; Pulm Edema;Pneumonia; Sepsis; Met. acidosis; Acute Kidney Injury; HTN Interval history: Patient is seen today for: Acute Hypoxemic Respiratory Failure on MVS; Pulm Edema Vs Pneumonia; Severe Sepsis; Metabolic acidosis; Acute Kidney Injury; HTN; DM II Seen and examined at bedside; 24hour events reviewed; nursing and respiratory care staff consulted; no adverse overnight events reported to me; resting peacefully in bed; on dialysis but hemodynamically unstable; no N/V/F/C; AMS is persistent and on vasopressin + Levophed Objective Vital Signs - 12hr 12/09/21 12/09/21 12/10/21 23:00 23:30 00:00 Temperature 98.3 F Pulse Rate 103 H 92 H 90 Pulse Rate [ 89 From Monitor] Respiratory 25 H Rate Blood Pressure 122/62 90/44 86/40 O2 Sat by Pulse 96 94 94 Oximetry O2 Sat by Pulse Oximetry [ Bilateral Throughout] 12/10/21 12/10/21 12/10/21 00:02 00:30 01:00 Temperature Pulse Rate 94 H 95 H 92 H Pulse Rate [ From Monitor] Respiratory Rate Blood Pressure 95/45 97/46 95/48 O2 Sat by Pulse 95 94 95 Oximetry O2 Sat by Pulse Oximetry [ Bilateral Throughout] 12/10/21 12/10/21 12/10/21 01:30 02:00 02:30 Temperature Pulse Rate 93 H 91 H 93 H Pulse Rate [ From Monitor] Respiratory Rate Blood Pressure 91/47 94/51 91/45 O2 Sat by Pulse 95 94 93 Oximetry O2 Sat by Pulse Oximetry [ Bilateral Throughout] 12/10/21 12/10/21 12/10/21 03:00 03:30 04:00 Temperature 99.4 F Pulse Rate 95 H 84 86 Pulse Rate [ 95 H From Monitor] Respiratory 28 H Rate Blood Pressure 91/40 90/43 97/46 O2 Sat by Pulse 94 94 94 Oximetry O2 Sat by Pulse Oximetry [ Bilateral Throughout] 12/10/21 12/10/21 12/10/21 04:07 04:30 05:00 Temperature Pulse Rate 87 100 H 94 H Pulse Rate [ From Monitor] Respiratory Rate Blood Pressure 97/46 106/47 105/43 O2 Sat by Pulse 94 94 94 Oximetry O2 Sat by Pulse Oximetry [ Bilateral Throughout] 12/10/21 12/10/21 12/10/21 05:30 06:00 06:30 Temperature Pulse Rate 94 H 95 H 90 Pulse Rate [ From Monitor] Respiratory Rate Blood Pressure 96/50 107/52 98/38 O2 Sat by Pulse 95 93 Oximetry O2 Sat by Pulse Oximetry [ Bilateral Throughout] 12/10/21 12/10/2122 07:00 07:16 07:27 Temperature 99.0 F Pulse Rate 85 91 H Pulse Rate [ 91 H From Monitor] Respiratory 22 Rate Blood Pressure 98/44 O2 Sat by Pulse 94 94 Oximetry O2 Sat by Pulse Oximetry [ Bilateral Throughout] 12/10/21 12/10/21 12/10/21 07:30 08:00 08:30 Temperature Pulse Rate 93 H 93 H 86 Pulse Rate [ From Monitor] Respiratory Rate Blood Pressure 111/46 109/49 104/45 O2 Sat by Pulse 93 94 94 Oximetry O2 Sat by Pulse Oximetry [ Bilateral Throughout] 12/10/21 12/10/21 12/10/21 09:00 09:12 09:30 Temperature Pulse Rate 89 93 H 86 Pulse Rate [ From Monitor] Respiratory Rate Blood Pressure 102/45 102/45 95/41 O2 Sat by Pulse 93 94 Oximetry O2 Sat by Pulse Oximetry [ Bilateral Throughout] 12/10/21 12/10/21 12/10/21 10:00 10:03 10:15 Temperature 99.0 F Pulse Rate 82 79 84 Pulse Rate [ From Monitor] Respiratory 22 Rate Blood Pressure 103/41 100/43 98/44 O2 Sat by Pulse 94 Oximetry O2 Sat by Pulse 96 Oximetry [ Bilateral Throughout] 12/10/21 10:30 Temperature Pulse Rate 98 H Pulse Rate [ From Monitor] Respiratory Rate Blood Pressure 102/42 O2 Sat by Pulse Oximetry O2 Sat by Pulse Oximetry [ Bilateral Throughout] Constitutional: appears uncomfortable, other (elderly lady with mild ventilator dyssynchrony at rest) Eyes: non-icteric ENT: oropharynx moist, other (ETT 23 cm CIARAN) Neck: supple, no lymphadenopathy, no JVD Effort: mildly labored Ascultation: Bilateral: rhonchi (bases) Percussion: Bilateral: not dull Cardiovascular: regular rate and rhythm Gastrointestinal: normoactive bowel sounds, soft, non-tender, non-distended Integumentary: rash Extremities: no cyanosis, pulses normal, no ischemia or petechiae Neurologic: pupils equal and round, unable to assess Psychiatric: other (unable to assess re: AMS) CBC and BMP: 12/11/21 04:33 12/11/21 04:33 ABG, PT/INR, D-dimer: ABG ABG pH 7.511 pH Units (7.350-7.450) H 12/09/21 08:45 ABG pCO2 30.5 mm Hg 12/09/21 08:45 ABG pO2 74.1 mm Hg (80.0-90.0) L 12/09/21 08:45 ABG O2 Saturation 97.0 % (95.0-99.0) 12/09/21 08:45 PT/INR, D-dimer PT 15.9 Sec. (12.2-14.9) H 12/02/21 01:24 INR 1.15 (0.87-1.13) H 12/02/21 01:24 D-Dimer 1461.68 ng/mlDDU (0-234) H 12/02/21 04:18 Abnormal lab findings: Abnormal Labs 12/02/21 12/02/21 12/02/21 00:52 00:52 01:24 WBC 15.4 H RBC Hgb Hct MCHC RDW 15.8 H Lymph % (Auto) 6.3 L [place] % (Auto) 11.7 H Lymph # (Auto) 1.0 L [place] # (Auto) 1.8 H Seg Neutrophils % 81.8 H Lymphocytes % (Manual) Seg Neutrophils # 12.6 H Lymphocytes # (Manual) PT INR D-Dimer ABG pH ABG pO2 ABG HCO3 ABG O2 Saturation ABG Base Excess ABG Hemoglobin VBG pH Oxyhemoglobin Sodium Potassium Chloride Carbon Dioxide BUN Creatinine Glucose POC Glucose Lactic Acid Calcium Phosphorus Magnesium AST ALT Lactate Dehydrogenase Total Creatine Kinase CK-MB (CK-2) CK-MB (CK-2) Rel Index Troponin T C-Reactive Protein NT-Pro-B Natriuret Pep Triglycerides HDL Cholesterol Urine WBC (Auto) 27.0 H Urine Creatinine 24.4 H Urine Total Protein 111 H 12/02/21 12/02/21 12/02/21 01:24 01:24 01:24 WBC RBC Hgb Hct MCHC RDW Lymph % (Auto) [place] % (Auto) Lymph # (Auto) [place] # (Auto) Seg Neutrophils % Lymphocytes % (Manual) Seg Neutrophils # Lymphocytes # (Manual) PT 15.9 H INR 1.15 H D-Dimer ABG pH ABG pO2 ABG HCO3 ABG O2 Saturation ABG Base Excess ABG Hemoglobin VBG pH Oxyhemoglobin Sodium Potassium 3.5 L Chloride Carbon Dioxide 4 L* BUN 43 H Creatinine 5.1 H Glucose 239 H POC Glucose Lactic Acid 15.70 H* Calcium Phosphorus Magnesium AST 86 H ALT 69 H Lactate Dehydrogenase Total Creatine Kinase 254 H CK-MB (CK-2) 20.2 H CK-MB (CK-2) Rel Index 7.9 H Troponin T C-Reactive Protein NT-Pro-B Natriuret Pep Triglycerides HDL Cholesterol Urine WBC (Auto) Urine Creatinine Urine Total Protein 12/02/21 12/02/21 12/02/21 01:24 01:24 04:18 WBC RBC Hgb Hct MCHC RDW Lymph % (Auto) [place] % (Auto) Lymph # (Auto) [place] # (Auto) Seg Neutrophils % Lymphocytes % (Manual) Seg Neutrophils # Lymphocytes # (Manual) PT INR D-Dimer 1461.68 H ABG pH ABG pO2 ABG HCO3 ABG O2 Saturation ABG Base Excess ABG Hemoglobin VBG pH 7.167 L* Oxyhemoglobin Sodium Potassium Chloride Carbon Dioxide BUN Creatinine Glucose POC Glucose Lactic Acid Calcium Phosphorus Magnesium AST ALT Lactate Dehydrogenase Total Creatine Kinase CK-MB (CK-2) CK-MB (CK-2) Rel Index Troponin T 2.600 H* C-Reactive Protein NT-Pro-B Natriuret Pep > 3500 H Triglycerides HDL Cholesterol 74 H Urine WBC (Auto) Urine Creatinine Urine Total Protein 12/02/21 12/02/21 12/02/21 04:18 04:18 10:47 WBC RBC Hgb Hct MCHC RDW Lymph % (Auto) [place] % (Auto) Lymph # (Auto) [place] # (Auto) Seg Neutrophils % Lymphocytes % (Manual) Seg Neutrophils # Lymphocytes # (Manual) PT INR D-Dimer ABG pH ABG pO2 ABG HCO3 ABG O2 Saturation ABG Base Excess ABG Hemoglobin VBG pH Oxyhemoglobin Sodium Potassium Chloride Carbon Dioxide 7 L* BUN 51 H Creatinine 5.9 H Glucose 255 H 224 H POC Glucose Lactic Acid 15.40 H* Calcium Phosphorus Magnesium AST ALT Lactate Dehydrogenase 958 H Total Creatine Kinase CK-MB (CK-2) CK-MB (CK-2) Rel Index Troponin T C-Reactive Protein 6.60 H NT-Pro-B Natriuret Pep Triglycerides HDL Cholesterol Urine WBC (Auto) Urine Creatinine Urine Total Protein 12/02/21 12/02/21 12/02/21 10:53 13:51 13:51 WBC RBC Hgb Hct MCHC RDW Lymph % (Auto) [place] % (Auto) Lymph # (Auto) [place] # (Auto) Seg Neutrophils % Lymphocytes % (Manual) Seg Neutrophils # Lymphocytes # (Manual) PT INR D-Dimer ABG pH ABG pO2 ABG HCO3 ABG O2 Saturation ABG Base Excess ABG Hemoglobin VBG pH Oxyhemoglobin Sodium Potassium Chloride Carbon Dioxide BUN Creatinine Glucose POC Glucose 194 H Lactic Acid 11.70 H* Calcium Phosphorus Magnesium AST ALT Lactate Dehydrogenase Total Creatine Kinase CK-MB (CK-2) CK-MB (CK-2) Rel Index Troponin T 2.500 H* C-Reactive Protein NT-Pro-B Natriuret Pep Triglycerides HDL Cholesterol Urine WBC (Auto) Urine Creatinine Urine Total Protein 12/02/21 12/02/21 12/02/21 20:31 22:56 22:56 WBC RBC Hgb Hct MCHC RDW Lymph % (Auto) [place] % (Auto) Lymph # (Auto) [place] # (Auto) Seg Neutrophils % Lymphocytes % (Manual) Seg Neutrophils # Lymphocytes # (Manual) PT INR D-Dimer ABG pH ABG pO2 156.2 H ABG HCO3 15.4 L ABG O2 Saturation ABG Base Excess -8.7 L ABG Hemoglobin VBG pH Oxyhemoglobin Sodium 147 H Potassium 3.4 L Chloride Carbon Dioxide 18 L D BUN 59 H Creatinine 6.2 H Glucose 150 H POC Glucose Lactic Acid 6.10 H* Calcium 8.3 L Phosphorus Magnesium AST ALT Lactate Dehydrogenase Total Creatine Kinase CK-MB (CK-2) CK-MB (CK-2) Rel Index Troponin T C-Reactive Protein NT-Pro-B Natriuret Pep Triglycerides HDL Cholesterol Urine WBC (Auto) Urine Creatinine Urine Total Protein 12/03/21 12/03/21 12/03/21 00:25 00:42 04:00 WBC RBC Hgb Hct MCHC RDW 15.4 H Lymph % (Auto) [place] % (Auto) Lymph # (Auto) [place] # (Auto) Seg Neutrophils % Lymphocytes % (Manual) 7.0 L Seg Neutrophils # Lymphocytes # (Manual) 0.4 L PT INR D-Dimer ABG pH ABG pO2 ABG HCO3 ABG O2 Saturation ABG Base Excess ABG Hemoglobin VBG pH Oxyhemoglobin Sodium Potassium Chloride Carbon Dioxide BUN Creatinine Glucose POC Glucose 150 H Lactic Acid 5.80 H* Calcium Phosphorus Magnesium AST ALT Lactate Dehydrogenase Total Creatine Kinase CK-MB (CK-2) CK-MB (CK-2) Rel Index Troponin T C-Reactive Protein NT-Pro-B Natriuret Pep Triglycerides HDL Cholesterol Urine WBC (Auto) Urine Creatinine Urine Total Protein 12/03/21 12/03/21 12/03/21 04:00 06:14 08:35 WBC RBC Hgb Hct MCHC RDW Lymph % (Auto) [place] % (Auto) Lymph # (Auto) [place] # (Auto) Seg Neutrophils % Lymphocytes % (Manual) Seg Neutrophils # Lymphocytes # (Manual) PT INR D-Dimer ABG pH 7.533 H ABG pO2 120.9 H ABG HCO3 ABG O2 Saturation ABG Base Excess ABG Hemoglobin 11.9 L VBG pH Oxyhemoglobin Sodium Potassium 3.5 L Chloride Carbon Dioxide 21 L BUN 63 H Creatinine 6.3 H Glucose 158 H POC Glucose 145 H Lactic Acid Calcium 7.9 L Phosphorus Magnesium AST ALT Lactate Dehydrogenase Total Creatine Kinase CK-MB (CK-2) CK-MB (CK-2) Rel Index Troponin T C-Reactive Protein NT-Pro-B Natriuret Pep Triglycerides HDL Cholesterol Urine WBC (Auto) Urine Creatinine Urine Total Protein 12/03/21 12/03/21 12/03/21 12:35 13:48 15:51 WBC RBC Hgb Hct MCHC RDW Lymph % (Auto) [place] % (Auto) Lymph # (Auto) [place] # (Auto) Seg Neutrophils % Lymphocytes % (Manual) Seg Neutrophils # Lymphocytes # (Manual) PT INR D-Dimer ABG pH ABG pO2 ABG HCO3 ABG O2 Saturation ABG Base Excess ABG Hemoglobin VBG pH Oxyhemoglobin Sodium Potassium Chloride Carbon Dioxide BUN Creatinine Glucose POC Glucose 151 H 168 H Lactic Acid Calcium Phosphorus Magnesium AST ALT Lactate Dehydrogenase Total Creatine Kinase CK-MB (CK-2) CK-MB (CK-2) Rel Index Troponin T C-Reactive Protein NT-Pro-B Natriuret Pep Triglycerides HDL Cholesterol Urine WBC (Auto) 9.0 H Urine Creatinine Urine Total Protein 12/03/21 12/03/21 12/03/21 16:20 16:35 23:21 WBC RBC Hgb Hct MCHC RDW Lymph % (Auto) [place] % (Auto) Lymph # (Auto) [place] # (Auto) Seg Neutrophils % Lymphocytes % (Manual) Seg Neutrophils # Lymphocytes # (Manual) PT INR D-Dimer ABG pH ABG pO2 ABG HCO3 ABG O2 Saturation ABG Base Excess ABG Hemoglobin VBG pH Oxyhemoglobin Sodium Potassium Chloride 92.3 L Carbon Dioxide BUN 67 H Creatinine 7.1 H Glucose 160 H POC Glucose 158 H 161 H Lactic Acid Calcium 7.3 L Phosphorus Magnesium AST ALT Lactate Dehydrogenase Total Creatine Kinase CK-MB (CK-2) CK-MB (CK-2) Rel Index Troponin T C-Reactive Protein NT-Pro-B Natriuret Pep Triglycerides HDL Cholesterol Urine WBC (Auto) Urine Creatinine Urine Total Protein 12/04/21 12/04/21 12/04/21 04:18 04:18 04:18 WBC RBC 3.29 L Hgb 10.0 L Hct 28.4 L D MCHC 35 H RDW 15.4 H Lymph % (Auto) [place] % (Auto) Lymph # (Auto) [place] # (Auto) Seg Neutrophils % Lymphocytes % (Manual) Seg Neutrophils # Lymphocytes # (Manual) PT INR D-Dimer ABG pH ABG pO2 ABG HCO3 ABG O2 Saturation ABG Base Excess ABG Hemoglobin VBG pH Oxyhemoglobin Sodium Potassium 3.5 L Chloride 91.5 L Carbon Dioxide 33 H D BUN 74 H Creatinine 7.5 H Glucose 155 H POC Glucose Lactic Acid 4.60 H* Calcium 7.2 L Phosphorus 4.60 H Magnesium AST ALT Lactate Dehydrogenase Total Creatine Kinase CK-MB (CK-2) CK-MB (CK-2) Rel Index Troponin T C-Reactive Protein NT-Pro-B Natriuret Pep Triglycerides HDL Cholesterol Urine WBC (Auto) Urine Creatinine Urine Total Protein 12/04/21 12/04/21 12/04/21 10:29 11:08 15:46 WBC RBC Hgb Hct MCHC RDW Lymph % (Auto) [place] % (Auto) Lymph # (Auto) [place] # (Auto) Seg Neutrophils % Lymphocytes % (Manual) Seg Neutrophils # Lymphocytes # (Manual) PT INR D-Dimer ABG pH 7.504 H ABG pO2 40.8 L ABG HCO3 30.1 H ABG O2 Saturation 75.1 L ABG Base Excess 6.6 H ABG Hemoglobin 10.2 L VBG pH Oxyhemoglobin 73.7 L Sodium Potassium Chloride Carbon Dioxide BUN Creatinine Glucose POC Glucose 146 H 155 H Lactic Acid Calcium Phosphorus Magnesium AST ALT Lactate Dehydrogenase Total Creatine Kinase CK-MB (CK-2) CK-MB (CK-2) Rel Index Troponin T C-Reactive Protein NT-Pro-B Natriuret Pep Triglycerides HDL Cholesterol Urine WBC (Auto) Urine Creatinine Urine Total Protein 12/04/21 12/05/21 12/05/21 23:30 04:22 04:22 WBC 12.7 H RBC 3.33 L Hgb 9.6 L Hct 29.3 L MCHC RDW 15.5 H Lymph % (Auto) [place] % (Auto) Lymph # (Auto) [place] # (Auto) Seg Neutrophils % Lymphocytes % (Manual) Seg Neutrophils # Lymphocytes # (Manual) PT INR D-Dimer ABG pH ABG pO2 ABG HCO3 ABG O2 Saturation ABG Base Excess ABG Hemoglobin VBG pH Oxyhemoglobin Sodium Potassium Chloride 90.3 L Carbon Dioxide BUN 89 H Creatinine 8.8 H Glucose 216 H POC Glucose 183 H Lactic Acid Calcium 8.0 L Phosphorus 4.60 H Magnesium AST ALT Lactate Dehydrogenase Total Creatine Kinase CK-MB (CK-2) CK-MB (CK-2) Rel Index Troponin T C-Reactive Protein NT-Pro-B Natriuret Pep Triglycerides 280 H HDL Cholesterol Urine WBC (Auto) Urine Creatinine Urine Total Protein 12/05/21 12/05/21 12/05/21 10:15 10:54 11:57 WBC RBC Hgb Hct MCHC RDW Lymph % (Auto) [place] % (Auto) Lymph # (Auto) [place] # (Auto) Seg Neutrophils % Lymphocytes % (Manual) Seg Neutrophils # Lymphocytes # (Manual) PT INR D-Dimer ABG pH 7.518 H ABG pO2 43.4 L ABG HCO3 28.8 H ABG O2 Saturation 78.6 L ABG Base Excess 5.6 H ABG Hemoglobin 8.4 L VBG pH Oxyhemoglobin 77.1 L Sodium Potassium Chloride Carbon Dioxide BUN Creatinine Glucose POC Glucose 187 H 196 H Lactic Acid Calcium Phosphorus Magnesium AST ALT Lactate Dehydrogenase Total Creatine Kinase CK-MB (CK-2) CK-MB (CK-2) Rel Index Troponin T C-Reactive Protein NT-Pro-B Natriuret Pep Triglycerides HDL Cholesterol Urine WBC (Auto) Urine Creatinine Urine Total Protein 12/05/21 12/05/21 12/05/21 16:34 18:02 23:39 WBC RBC Hgb Hct MCHC RDW Lymph % (Auto) [place] % (Auto) Lymph # (Auto) [place] # (Auto) Seg Neutrophils % Lymphocytes % (Manual) Seg Neutrophils # Lymphocytes # (Manual) PT INR D-Dimer ABG pH ABG pO2 ABG HCO3 ABG O2 Saturation ABG Base Excess ABG Hemoglobin VBG pH Oxyhemoglobin Sodium Potassium Chloride Carbon Dioxide BUN Creatinine Glucose POC Glucose 178 H 167 H 235 H Lactic Acid Calcium Phosphorus Magnesium AST ALT Lactate Dehydrogenase Total Creatine Kinase CK-MB (CK-2) CK-MB (CK-2) Rel Index Troponin T C-Reactive Protein NT-Pro-B Natriuret Pep Triglycerides HDL Cholesterol Urine WBC (Auto) Urine Creatinine Urine Total Protein 12/06/21 12/06/21 12/06/21 04:35 04:35 05:37 WBC 11.8 H RBC 2.99 L Hgb 8.9 L Hct 26.1 L MCHC RDW Lymph % (Auto) [place] % (Auto) Lymph # (Auto) [place] # (Auto) Seg Neutrophils % Lymphocytes % (Manual) Seg Neutrophils # Lymphocytes # (Manual) PT INR D-Dimer ABG pH ABG pO2 ABG HCO3 ABG O2 Saturation ABG Base Excess ABG Hemoglobin VBG pH Oxyhemoglobin Sodium Potassium Chloride 95.0 L Carbon Dioxide BUN 59 H Creatinine 6.3 H Glucose 244 H POC Glucose 251 H Lactic Acid Calcium Phosphorus Magnesium AST ALT Lactate Dehydrogenase Total Creatine Kinase CK-MB (CK-2) CK-MB (CK-2) Rel Index Troponin T C-Reactive Protein NT-Pro-B Natriuret Pep Triglycerides HDL Cholesterol Urine WBC (Auto) Urine Creatinine Urine Total Protein 12/06/21 12/06/21 12/06/21 06:05 11:45 17:19 WBC RBC Hgb Hct MCHC RDW Lymph % (Auto) [place] % (Auto) Lymph # (Auto) [place] # (Auto) Seg Neutrophils % Lymphocytes % (Manual) Seg Neutrophils # Lymphocytes # (Manual) PT INR D-Dimer ABG pH 7.555 H ABG pO2 95.3 H ABG HCO3 27.3 H ABG O2 Saturation ABG Base Excess 4.9 H ABG Hemoglobin 9.0 L VBG pH Oxyhemoglobin Sodium Potassium Chloride Carbon Dioxide BUN Creatinine Glucose POC Glucose 249 H 187 H Lactic Acid Calcium Phosphorus Magnesium AST ALT Lactate Dehydrogenase Total Creatine Kinase CK-MB (CK-2) CK-MB (CK-2) Rel Index Troponin T C-Reactive Protein NT-Pro-B Natriuret Pep Triglycerides HDL Cholesterol Urine WBC (Auto) Urine Creatinine Urine Total Protein 12/06/21 12/07/21 12/07/21 23:24 04:00 04:00 WBC RBC 3.10 L Hgb 8.8 L Hct 27.5 L MCHC RDW 15.8 H Lymph % (Auto) [place] % (Auto) Lymph # (Auto) [place] # (Auto) Seg Neutrophils % Lymphocytes % (Manual) Seg Neutrophils # Lymphocytes # (Manual) PT INR D-Dimer ABG pH ABG pO2 ABG HCO3 ABG O2 Saturation ABG Base Excess ABG Hemoglobin VBG pH Oxyhemoglobin Sodium Potassium Chloride Carbon Dioxide BUN 50 H Creatinine 5.5 H Glucose 248 H POC Glucose 233 H Lactic Acid Calcium Phosphorus Magnesium AST ALT Lactate Dehydrogenase Total Creatine Kinase CK-MB (CK-2) CK-MB (CK-2) Rel Index Troponin T C-Reactive Protein NT-Pro-B Natriuret Pep Triglycerides HDL Cholesterol Urine WBC (Auto) Urine Creatinine Urine Total Protein 12/07/21 12/07/21 12/07/21 04:55 05:40 10:49 WBC RBC Hgb Hct MCHC RDW Lymph % (Auto) [place] % (Auto) Lymph # (Auto) [place] # (Auto) Seg Neutrophils % Lymphocytes % (Manual) Seg Neutrophils # Lymphocytes # (Manual) PT INR D-Dimer ABG pH 7.519 H ABG pO2 65.4 L ABG HCO3 27.1 H ABG O2 Saturation ABG Base Excess 4.1 H ABG Hemoglobin 8.3 L VBG pH Oxyhemoglobin 94.9 L Sodium Potassium Chloride Carbon Dioxide BUN Creatinine Glucose POC Glucose 230 H 215 H Lactic Acid Calcium Phosphorus Magnesium AST ALT Lactate Dehydrogenase Total Creatine Kinase CK-MB (CK-2) CK-MB (CK-2) Rel Index Troponin T C-Reactive Protein NT-Pro-B Natriuret Pep Triglycerides HDL Cholesterol Urine WBC (Auto) Urine Creatinine Urine Total Protein 12/07/21 12/07/21 12/08/21 15:53 23:33 04:00 WBC 14.6 H RBC 2.91 L Hgb 8.9 L Hct 25.6 L MCHC 35 H RDW 15.6 H Lymph % (Auto) [place] % (Auto) Lymph # (Auto) [place] # (Auto) Seg Neutrophils % Lymphocytes % (Manual) Seg Neutrophils # Lymphocytes # (Manual) PT INR D-Dimer ABG pH ABG pO2 ABG HCO3 ABG O2 Saturation ABG Base Excess ABG Hemoglobin VBG pH Oxyhemoglobin Sodium Potassium Chloride Carbon Dioxide BUN Creatinine Glucose POC Glucose 167 H 206 H Lactic Acid Calcium Phosphorus Magnesium AST ALT Lactate Dehydrogenase Total Creatine Kinase CK-MB (CK-2) CK-MB (CK-2) Rel Index Troponin T C-Reactive Protein NT-Pro-B Natriuret Pep Triglycerides HDL Cholesterol Urine WBC (Auto) Urine Creatinine Urine Total Protein 12/08/21 12/08/21 12/08/21 04:00 04:10 05:15 WBC RBC Hgb Hct MCHC RDW Lymph % (Auto) [place] % (Auto) Lymph # (Auto) [place] # (Auto) Seg Neutrophils % Lymphocytes % (Manual) Seg Neutrophils # Lymphocytes # (Manual) PT INR D-Dimer ABG pH 7.511 H ABG pO2 77.8 L ABG HCO3 ABG O2 Saturation ABG Base Excess ABG Hemoglobin 9.0 L VBG pH Oxyhemoglobin Sodium Potassium Chloride 96.3 L Carbon Dioxide BUN 80 H Creatinine 6.4 H Glucose 223 H POC Glucose 193 H Lactic Acid Calcium Phosphorus Magnesium 2.50 H AST ALT Lactate Dehydrogenase Total Creatine Kinase CK-MB (CK-2) CK-MB (CK-2) Rel Index Troponin T C-Reactive Protein NT-Pro-B Natriuret Pep Triglycerides HDL Cholesterol Urine WBC (Auto) Urine Creatinine Urine Total Protein 12/08/21 12/08/21 12/08/21 11:29 16:53 19:56 WBC RBC Hgb Hct MCHC RDW Lymph % (Auto) [place] % (Auto) Lymph # (Auto) [place] # (Auto) Seg Neutrophils % Lymphocytes % (Manual) Seg Neutrophils # Lymphocytes # (Manual) PT INR D-Dimer ABG pH ABG pO2 ABG HCO3 ABG O2 Saturation ABG Base Excess ABG Hemoglobin VBG pH Oxyhemoglobin Sodium Potassium Chloride Carbon Dioxide BUN Creatinine Glucose POC Glucose 202 H 240 H 236 H Lactic Acid Calcium Phosphorus Magnesium AST ALT Lactate Dehydrogenase Total Creatine Kinase CK-MB (CK-2) CK-MB (CK-2) Rel Index Troponin T C-Reactive Protein NT-Pro-B Natriuret Pep Triglycerides HDL Cholesterol Urine WBC (Auto) Urine Creatinine Urine Total Protein 12/09/21 12/09/21 12/09/21 00:16 04:20 04:20 WBC 16.4 H RBC 2.91 L Hgb 8.7 L Hct 25.9 L MCHC RDW 15.9 H Lymph % (Auto) [place] % (Auto) Lymph # (Auto) [place] # (Auto) Seg Neutrophils % Lymphocytes % (Manual) Seg Neutrophils # Lymphocytes # (Manual) PT INR D-Dimer ABG pH ABG pO2 ABG HCO3 ABG O2 Saturation ABG Base Excess ABG Hemoglobin VBG pH Oxyhemoglobin Sodium Potassium Chloride Carbon Dioxide BUN 58 H Creatinine 4.5 H Glucose 235 H POC Glucose 243 H Lactic Acid Calcium Phosphorus 2.40 L D Magnesium AST ALT Lactate Dehydrogenase Total Creatine Kinase CK-MB (CK-2) CK-MB (CK-2) Rel Index Troponin T C-Reactive Protein NT-Pro-B Natriuret Pep Triglycerides HDL Cholesterol Urine WBC (Auto) Urine Creatinine Urine Total Protein 12/09/21 12/09/21 12/09/21 05:19 08:45 11:47 WBC RBC Hgb Hct MCHC RDW Lymph % (Auto) [place] % (Auto) Lymph # (Auto) [place] # (Auto) Seg Neutrophils % Lymphocytes % (Manual) Seg Neutrophils # Lymphocytes # (Manual) PT INR D-Dimer ABG pH 7.511 H ABG pO2 74.1 L ABG HCO3 ABG O2 Saturation ABG Base Excess ABG Hemoglobin 6.4 L VBG pH Oxyhemoglobin Sodium Potassium Chloride Carbon Dioxide BUN Creatinine Glucose POC Glucose 217 H 195 H Lactic Acid Calcium Phosphorus Magnesium AST ALT Lactate Dehydrogenase Total Creatine Kinase CK-MB (CK-2) CK-MB (CK-2) Rel Index Troponin T C-Reactive Protein NT-Pro-B Natriuret Pep Triglycerides HDL Cholesterol Urine WBC (Auto) Urine Creatinine Urine Total Protein 12/09/21 12/09/21 12/09/21 16:58 21:29 23:16 WBC RBC Hgb Hct MCHC RDW Lymph % (Auto) [place] % (Auto) Lymph # (Auto) [place] # (Auto) Seg Neutrophils % Lymphocytes % (Manual) Seg Neutrophils # Lymphocytes # (Manual) PT INR D-Dimer ABG pH ABG pO2 ABG HCO3 ABG O2 Saturation ABG Base Excess ABG Hemoglobin VBG pH Oxyhemoglobin Sodium Potassium Chloride Carbon Dioxide BUN Creatinine Glucose POC Glucose 168 H 224 H 215 H Lactic Acid Calcium Phosphorus Magnesium AST ALT Lactate Dehydrogenase Total Creatine Kinase CK-MB (CK-2) CK-MB (CK-2) Rel Index Troponin T C-Reactive Protein NT-Pro-B Natriuret Pep Triglycerides HDL Cholesterol Urine WBC (Auto) Urine Creatinine Urine Total Protein 12/10/21 12/10/21 12/10/21 04:30 04:30 05:11 WBC 18.2 H RBC 2.72 L Hgb 7.9 L Hct 24.4 L MCHC RDW 16.0 H Lymph % (Auto) Morrow % (Auto) Lymph # (Auto) [place] # (Auto) Seg Neutrophils % Lymphocytes % (Manual) Seg Neutrophils # Lymphocytes # (Manual) PT INR D-Dimer ABG pH ABG pO2 ABG HCO3 ABG O2 Saturation ABG Base Excess ABG Hemoglobin VBG pH Oxyhemoglobin Sodium Potassium Chloride Carbon Dioxide 15 L D BUN 96 H Creatinine 6.1 H Glucose 215 H POC Glucose 183 H Lactic Acid Calcium 8.2 L Phosphorus 6.70 H D Magnesium AST ALT Lactate Dehydrogenase Total Creatine Kinase CK-MB (CK-2) CK-MB (CK-2) Rel Index Troponin T C-Reactive Protein NT-Pro-B Natriuret Pep Triglycerides HDL Cholesterol Urine WBC (Auto) Urine Creatinine Urine Total Protein Chest x-ray: other (none today) Allied health notes reviewed: nursing
--- NOTE | 2021-12-10 14:07 | Ultrasound Report ---
US chest INDICATION / CLINICAL INFORMATION: pleural effusion COMPARISON: Chest x-ray 12/09/2021 FINDINGS: Using a transcutaneous probe, multiple grayscale images were capped and stored of the bilateral poste rior sulci. A dependent left-sided pleural effusion is demonstrated with calculated volume of 209 cc. No effusion present on the right. IMPRESSION: 1. Left pleural effusion with calculated volume of 209 cc. Signer Name: Ortega Neumann II, MD Signed: 12/10/2021 2:03 PM Workstation Name: [id number]
--- NOTE | 2021-12-10 14:50 | Progress Note ---
Assessment and Plan Assessment and plan: This is a 86-year-old female with HTN, DM, PVD, paroxysmal A. fib right AKA initially admitted to the floor for sepsis, RAYNE, pneumonia who required a code met on 12/02 due to acute hypoxic respiratory failure requiring intubation and ventilatory support and transferred to ICU Assessment and plan Neuro: Acute metabolic encephalopathy -Sedated with fentanyl gtt -RASS goal 0 to -1 -Seroquel nightly -Avoid delirium -Reorientation as needed -Maintain sleep-wake cycle -As needed analgesia -CT head pending Cardiac: Elevated proBNP, NSTEMI, h/o HTN, PVD s/p right AKA, cardiomyopathy, paroxysmal atrial fibrillation -Cardiology consulted, appreciate recommendations -Admit proBNP greater than 2000, troponin 2.0 -Blood pressure monitoring per protocol -Resume home Plavix, Pletal, metoprolol -Echocardiogram shows ejection fraction of 30 to 35% with severely dilated cardiomyopathy -No diuretic therapy due to RAYNE -vasopressor support with Levophed and vasopressin -map goal >65 Respiratory: Acute hypoxic respiratory failure -CCM consulted, appreciate recommendations -Intubated on 12/02 with 7.50 ETT at 24 the lips -A.m. vent settings: AC TV 400, Rate 12, Peep 6, 40% fiO2 -See RT notes for titration -planned CPAP -A.m. ABG and CXR noted -VAP bundle -SPO2 monitoring -US chest shows 203 mL of fluid in pleural cavity GI: NAD -24 hours +1649 -HD session stopped d/t tachycardia -PPI -NTR consulted for tube feedings -BR: Senokot : Acute kidney injury likely secondary to ATN requiring HD, hypochloremia -Nephrology consulted, appreciate recommendations -Strict intake and output -Renally dose medications -Avoid nephrotoxic medications -Daily weights -S/p Vas-Cath -Initiated hemodialysis on 12/06 -Currently on MWF schedule and as needed per nephrology -Renal ultrasound shows no significant normality ID: Severe sepsis, pneumonia, lactic acidosis -Secondary to pneumonia versus fluid overload with acute respiratory failure and acidosis -Admit CXR with bilateral pulmonary opacities -Infectious disease consulted, appreciate recommendation -Antibiotic therapy with cefepime, complete 5 days -cefepime restarted d/t increase in WBC -possible treatment for cdiff if leukocytosis worsens -COVID-19 PCR negative -f/u blood culture -12/02 blood culture, sputum culture, urine culture with no growth to date -Monitor WBC and temperature curve Endo: h/o DM type II -Avoid hypoglycemia -SSI -Long-acting insulin, titrate as needed -Accu-Cheks q. 6 Heme: Leukocytosis, anemia -Trend CBC -Epogen per nephrology -Transfuse hemoglobin less than 7 -Monitor for signs of bleeding -SCDs to BLE while in bed The high probability of a clinically significant, sudden or life threatening deterioration of the [multi] system(s) required my full and direct attention, intervention and personal management. The aggregate critical care time was [60] minutes. This time is in addition to time spent performing reported procedures but includes the following: [x] Data Review and interpretation [x] Patient assessment and monitoring of vital signs [x] Documentation [x] Medication orders and management Disposition Plan: icu Total Time Spent with Patient (Minutes): 60 History Interval history: This is a 86-year-old female with HTN, DM, proximal atrial fibrillation right AKA who presented to the emergency department on 12/02 with complaints of shortness of breath ongoing for the past 3 days, productive cough, fever without chills. Patient is medically vaccinated against COVID-19. Recommend emergency department revealed CXR which showed development of bilateral airspace op acities compatible with hepatopulmonary edema, lab work was significant for leukocytosis of 15.4, elevated D-dimer 1461, hypokalemia at 3.5, metabolic acidosis with a CO2 of 4, lactic acidosis at 15.7, elevated proBNP greater than 3500 and elevated troponin of 2.6. Patient was started on antibiotics for possible underlying pneumonia and admitted to the hospital service as a COVID-19 PUI, sepsis with acute renal failure, metabolic acidosis, hypokalemia with consults to ID, nephrology and cardiology. Hospital Course to Date: 12/03: Patient remains intubated and sedated. This am ABG noted, continue to wean Fio2 as tolerated. Patient's renal function continue to worsen, patient currently on bcab gtt per Nephrology. Per Nephro plan for possible discussion with family, patient might require HD. Acidosis is improving continue bcarb and IV abx per ID, trend lactic acid. 12/04: Overnight events noted, remains ST in the 110s this am, BP stable. Renal function continue to worsen, per nursing staff patient's POA is leaning towards HD. Plan for possible family meeting to further discuss patient's goal of care. This am ABG noted, most likely venous, SPO2 is 100%, tolerating vent. Continue to wean Fio2 as tolerated. 12/05: Family meeting with grandson today at the bedside. Thorough discussion with the attending in regards to patient's current status/condition and overall prognosis. Patient's grandson voiced understanding of the info given, stated that he knows his grandma is older but he would like to give her a fighting chance and want everything done including hemodialysis. Code status was also addressed, patient's POA stated that he would like full resuscitative measures at this time. Patient remains a FULL code. RIJ Vascath inserted, plan for possible HD today per Nephro. 12/06: Patient tolerated first HD treatment yesterday, renal function with some improvement this am. Plan for possible HD again today. Increased agitation overnight, sedation increased, will added low dose Seroquel Qhs. Basal insulin added for hyperglycemia. Continue to wean Fio2 as tolerated per CCM. 12/07: ZANE overnight. Remains on the vent and sedated. Renal function is improving on iHD, still oliguric though. Plan to wean off sedation today or tomorrow if tolerated, possible PST trial in the am. Basal lantus added for hyperglycemia. 12/08: Patient scheduled for hemodialysis today, Palacio catheter will be discontinued and CCM decreased rate with an ABG to be obtained at 1700. 12/09: [facility] would like to obtain left chest ultrasound, reports p.o., was on CPAP trial this morning but goes back to rate due to increased work of breathing and after being switched back patient experienced tachycardia and hypotension, vasopressin and Levophed ordered and placed back on fentanyl drip. Palacio catheter discontinued. 12/10: Chest ultrasound ordered, restarted on cefepime per ID note, remains on Levophed and vasopressin, patient had A. fib with RVR into the 170s with hemodialysis which was stopped and HR decreased to low ST, cardio is aware and EKG was obtained during incident. We will try patient CPAP today again. Hospitalist Physical - Constitutional Vitals: Temp Pulse Resp BP Pulse Ox 99 F 105 H 22 110/43 95 12/10/21 12:36 12/10/21 14:00 12/10/21 12:36 12/10/21 14:00 12/10/21 14:00 General appearance: Present: no acute distress, other (Intubated and Sedated) - EENT Eyes: Present: PERRL, EOM intact ENT: poor dentition - Neck Neck: Present: normal ROM - Respiratory Respiratory effort: normal Respiratory: bilateral: CTA - Cardiovascular Rhythm: regular Heart Sounds: Present: S1 & S2. Absent: systolic murmur, diastolic murmur - Extremities Extremities: no ischemia, pulses intact, pulses symmetrical, No edema, normal temperature, normal color Peripheral Pulses: within normal limits - Abdominal General gastrointestinal: soft, non-tender, non-distended, normal bowel sounds - Integumentary Integumentary: Present: warm, dry - Psychiatric Psychiatric: other - Neurologic Neurologic: other (response to pain, intact cough/gag) HEART Score - HEART Score Troponin: Troponin T 2.500 ng/mL (0.00-0.029) H* 12/02/21 13:51 Results - Labs CBC & Chem 7: 12/10/21 04:30 12/10/21 04:30 Labs: Laboratory Last Values WBC 18.2 K/mm3 (4.5-11.0) H 12/10/21 04:30 RBC 2.72 M/mm3 (3.65-5.03) L 12/10/21 04:30 Hgb 7.9 gm/dl (10.1-14.3) L 12/10/21 04:30 Hct 24.4 % (30.3-42.9) L 12/10/21 04:30 MCV 90 fl (79-97) 12/10/21 04:30 MCH 29 pg (28-32) 12/10/21 04:30 MCHC 32 % (30-34) 12/10/21 04:30 RDW 16.0 % (13.2-15.2) H 12/10/21 04:30 Plt Count 257 K/mm3 (140-440) 12/10/21 04:30 Lymph % (Auto) 6.3 % (13.4-35.0) L 12/02/21 01:24 [place]orte % (Auto) 11.7 % (0.0-7.3) H 12/02/21 01:24 Eos % (Auto) 0.0 % (0.0-4.3) 12/02/21 01:24 Baso % (Auto) 0.2 % (0.0-1.8) 12/02/21 01:24 Lymph # (Auto) 1.0 K/mm3 (1.2-5.4) L 12/02/21 01:24 [place]orte # (Auto) 1.8 K/mm3 (0.0-0.8) H 12/02/21 01:24 Eos # (Auto) 0.0 K/mm3 (0.0-0.4) 12/02/21 01:24 Baso # (Auto) 0.0 K/mm3 (0.0-0.1) 12/02/21 01:24 Add Manual Diff Complete 12/03/21 04:00 Total Counted 100 12/03/21 04:00 Seg Neutrophils % 81.8 % (40.0-70.0) H 12/02/21 01:24 Seg Neuts % (Manual) 67.0 % (40.0-70.0) 12/03/21 04:00 Band Neutrophils % 18.0 % 12/03/21 04:00 Lymphocytes % (Manual) 7.0 % (13.4-35.0) L 12/03/21 04:00 Reactive Lymphs % (Man) 0 % 12/03/21 04:00 Monocytes % (Manual) 3.0 % (0.0-7.3) 12/03/21 04:00 Eosinophils % (Manual) 0 % (0.0-4.3) 12/03/21 04:00 Basophils % (Manual) 0 % (0.0-1.8) 12/03/21 04:00 Metamyelocytes % 4.0 % 12/03/21 04:00 Myelocytes % 1.0 % 12/03/21 04:00 Promyelocytes % 0 % 12/03/21 04:00 Blast Cells % 0 % 12/03/21 04:00 Nucleated RBC % Not Reportable 12/03/21 04:00 Seg Neutrophils # 12.6 K/mm3 (1.8-7.7) H 12/02/21 01:24 Seg Neutrophils # Man 4.1 K/mm3 (1.8-7.7) 12/03/21 04:00 Band Neutrophils # 1.1 K/mm3 12/03/21 04:00 Lymphocytes # (Manual) 0.4 K/mm3 (1.2-5.4) L 12/03/21 04:00 Abs React Lymphs (Man) 0.0 K/mm3 12/03/21 04:00 Monocytes # (Manual) 0.2 K/mm3 (0.0-0.8) 12/03/21 04:00 Eosinophils # (Manual) 0.0 K/mm3 (0.0-0.4) 12/03/21 04:00 Basophils # (Manual) 0.0 K/mm3 (0.0-0.1) 12/03/21 04:00 Metamyelocytes # 0.2 K/mm3 12/03/21 04:00 Myelocytes # 0.1 K/mm3 12/03/21 04:00 Promyelocytes # 0.0 K/mm3 12/03/21 04:00 Blast Cells # 0.0 K/mm3 12/03/21 04:00 WBC Morphology Not Reportable 12/03/21 04:00 Hypersegmented Neuts Not Reportable 12/03/21 04:00 Hyposegmented Neuts Not Reportable 12/03/21 04:00 Hypogranular Neuts Not Reportable 12/03/21 04:00 Smudge Cells Not Reportable 12/03/21 04:00 Toxic Granulation Not Reportable 12/03/21 04:00 Toxic Vacuolation Not Reportable 12/03/21 04:00 Dohle Bodies Not Reportable 12/03/21 04:00 Pelger-Huet Anomaly Not Reportable 12/03/21 04:00 Randee Rods Not Reportable 12/03/21 04:00 Platelet Estimate Consistent w auto 12/03/21 04:00 Clumped Platelets Few 12/03/21 04:00 Plt Clumps, EDTA Not Reportable 12/03/21 04:00 Large Platelets Few 12/03/21 04:00 Giant Platelets Not Reportable 12/03/21 04:00 Platelet Satelliting Not Reportable 12/03/21 04:00 Plt Morphology Comment Not Reportable 12/03/21 04:00 RBC Morphology Not Reportable 12/03/21 04:00 Dimorphic RBCs Not Reportable 12/03/21 04:00 Polychromasia Not Reportable 12/03/21 04:00 Hypochromasia Not Reportable 12/03/21 04:00 Poikilocytosis Not Reportable 12/03/21 04:00 Anisocytosis Not Reportable 12/03/21 04:00 Microcytosis Not Reportable 12/03/21 04:00 Macrocytosis Not Reportable 12/03/21 04:00 Spherocytes Not Reportable 12/03/21 04:00 Pappenheimer Bodies Not Reportable 12/03/21 04:00 Sickle Cells Not Reportable 12/03/21 04:00 Target Cells Not Reportable 12/03/21 04:00 Tear Drop Cells Not Reportable 12/03/21 04:00 Ovalocytes Not Reportable 12/03/21 04:00 Helmet Cells Not Reportable 12/03/21 04:00 [place] Bodies Not Reportable 12/03/21 04:00 Agar Rings Not Reportable 12/03/21 04:00 Ania Cells 1+ 12/03/21 04:00 Bite Cells Not Reportable 12/03/21 04:00 Crenated Cell Not Reportable 12/03/21 04:00 Elliptocytes Not Reportable 12/03/21 04:00 Acanthocytes (Spur) Rare 12/03/21 04:00 Rouleaux Not Reportable 12/03/21 04:00 Hemoglobin C Crystals Not Reportable 12/03/21 04:00 Schistocytes Not Reportable 12/03/21 04:00 Malaria parasites Not Reportable 12/03/21 04:00 Josemanuel Bodies Not Reportable 12/03/21 04:00 Hem Pathologist Commnt No 12/03/21 04:00 PT 15.9 Sec. (12.2-14.9) H 12/02/21 01:24 INR 1.15 (0.87-1.13) H 12/02/21 01:24 APTT 31.5 Sec. (24.2-36.6) 12/02/21 01:24 D-Dimer 1461.68 ng/mlDDU (0-234) H 12/02/21 04:18 ABG pH 7.511 pH Units (7.350-7.450) H 12/09/21 08:45 ABG pCO2 30.5 mm Hg 12/09/21 08:45 ABG pO2 74.1 mm Hg (80.0-90.0) L 12/09/21 08:45 ABG HCO3 23.9 mmol/L (20.0-26.0) 12/09/21 08:45 ABG O2 Saturation 97.0 % (95.0-99.0) 12/09/21 08:45 ABG O2 Content 8.6 (0.0-44) 12/09/21 08:45 ABG Base Excess 0.8 mmol/L (-2.0-3.0) 12/09/21 08:45 ABG Hemoglobin 6.4 gm/dl (12.0-16.0) L 12/09/21 08:45 ABG Carboxyhemoglobin 1.5 % (0.0-5.0) 12/09/21 08:45 ABG Methemoglobin 0.3 % (0.0-1.5) 12/09/21 08:45 VBG pH 7.167 (7.320-7.420) L* 12/02/21 01:24 Oxyhemoglobin 95.2 % (95.0-99.0) 12/09/21 08:45 FiO2 40 % 12/09/21 08:45 Sodium 142 mmol/L (137-145) 12/10/21 04:30 Potassium 3.9 mmol/L (3.6-5.0) 12/10/21 04:30 Chloride 99.3 mmol/L (98-107) 12/10/21 04:30 Carbon Dioxide 15 mmol/L (22-30) L D 12/10/21 04:30 Anion Gap 32 mmol/L 12/10/21 04:30 BUN 96 mg/dL (7-17) H 12/10/21 04:30 Creatinine 6.1 mg/dL (0.6-1.2) H 12/10/21 04:30 Estimated GFR 7 ml/min 12/10/21 04:30 BUN/Creatinine Ratio 16 % 12/10/21 04:30 Glucose 215 mg/dL (65-100) H 12/10/21 04:30 POC Glucose 179 mg/dL (70-105) H 12/10/21 10:52 Lactic Acid 4.60 mmol/L (0.7-2.0) H* 12/04/21 04:18 Calcium 8.2 mg/dL (8.4-10.2) L 12/10/21 04:30 Phosphorus 6.70 mg/dL (2.5-4.5) H D 12/10/21 04:30 Magnesium 2.20 mg/dL (1.7-2.3) 12/09/21 04:20 Ferritin 168.9 ng/mL (10.0-200.0) 12/02/21 04:18 Total Bilirubin 0.40 mg/dL (0.1-1.2) 12/02/21 01:24 AST 86 units/L (5-40) H 12/02/21 01:24 ALT 69 units/L (7-56) H 12/02/21 01:24 Alkaline Phosphatase 91 units/L (35-129) 12/02/21 01:24 Lactate Dehydrogenase 958 units/L (91-180) H 12/02/21 04:18 Total Creatine Kinase 254 units/L (30-135) H 12/02/21 01:24 CK-MB (CK-2) 20.2 ng/mL (0.0-4.0) H 12/02/21 01:24 CK-MB (CK-2) Rel Index 7.9 (0-4) H 12/02/21 01:24 Troponin T 2.500 ng/mL (0.00-0.029) H* 12/02/21 13:51 C-Reactive Protein 6.60 mg/dL (0.00-1.30) H 12/02/21 04:18 NT-Pro-B Natriuret Pep > 3500 pg/mL (0-900) H 12/02/21 01:24 Total Protein 7.7 g/dL (6.3-8.2) 12/02/21 01:24 Albumin 4.0 g/dL (3.9-5) 12/02/21 01:24 Albumin/Globulin Ratio 1.1 % 12/02/21 01:24 Triglycerides 112 mg/dL (2-149) 12/08/21 04:00 Cholesterol 177 mg/dL (50-199) 12/02/21 01:24 LDL Cholesterol Direct 91 mg/dL (50-130) 12/02/21 01:24 HDL Cholesterol 74 mg/dL (40-59) H 12/02/21 01:24 Cholesterol/HDL Ratio 2.39 % 12/02/21 01:24 Procalcitonin 1.24 ng/mL (<0.15) 12/02/21 04:18 Urine Color Yellow (Yellow) 12/03/21 13:48 Urine Turbidity Hazy (Clear) 12/03/21 13:48 Urine pH 7.0 (5.0-7.0) 12/03/21 13:48 Ur Specific Newcomb 1.009 (1.003-1.030) 12/03/21 13:48 Urine Protein >500 mg/dL (Negative) 12/03/21 13:48 Urine Glucose (UA) 50 mg/dL (Negative) 12/03/21 13:48 Urine Ketones Neg mg/dL (Negative) 12/03/21 13:48 Urine Blood Mod (Negative) 12/03/21 13:48 Urine Nitrite Neg (Negative) 12/03/21 13:48 Urine Bilirubin Neg (Negative) 12/03/21 13:48 Urine Urobilinogen < 2.0 mg/dL (<2.0) 12/03/21 13:48 Ur Leukocyte Esterase Neg (Negative) 12/03/21 13:48 Urine WBC (Auto) 9.0 /HPF (0.0-6.0) H 12/03/21 13:48 Urine RBC (Auto) 5.0 /HPF (0.0-6.0) 12/03/21 13:48 U Epithel Cells (Auto) 2.0 /HPF (0-13.0) 12/03/21 13:48 Urine Bacteria (Auto) 1+ /HPF (Negative) 12/02/21 00:52 Urine Mucus Few /HPF 12/03/21 13:48 Urine Yeast (Budding) Few /HPF 12/02/21 00:52 Urine Creatinine 24.4 mg/dL (0.1-20.0) H 12/02/21 00:52 Protein/Creatinin Ratio 4.55 12/02/21 00:52 Urine Sodium 109 mmol/L 12/02/21 00:52 Urine Total Protein 111 mg/dL (5-11.8) H 12/02/21 00:52 Random Vancomycin 14.0 ug/mL (0-40.0) 12/05/21 04:22 Coronavirus (PCR) Negative (Negative) 12/02/21 09:00 Hepatitis A IgM Ab Non-reactive (NonReactive) 12/05/21 04:22 Hep Bs Antigen Non-reactive (Negative) 12/05/21 04:22 Hep B Core IgM Ab Non-reactive (NonReactive) 12/05/21 04:22 Hepatitis C Antibody Non-reactive (NonReactive) 12/05/21 04:22 Palacio/IV: Voiding Method Incontinent Active Medications - Current Medications Current Medications: Generic Name Dose Route Start Last Admin Trade Name Freq PRN Reason Stop Dose Admin Acetaminophen 650 mg 12/02/21 04:37 12/07/21 04:58 Acetaminophen 325 Mg Tab PO 650 mg Q4H PRN Administration Pain MILD(1-3)/Fever >100.5/HYLTON Aspirin 81 mg 12/03/21 10:00 12/10/21 09:12 Aspirin 81 Mg Tab Chew PO 81 mg QDAY KHARI Administration Cilostazol 50 mg 12/02/21 22:00 12/10/21 09:31 Cilostazol 100 Mg Tab PO 50 mg BID KHARI Administration Clopidogrel Bisulfate 75 mg 12/03/21 10:00 12/10/21 09:12 Clopidogrel 75 Mg Tab PO 75 mg QDAY KHARI Administration Dextrose 0 ml 12/02/21 05:10 Dextrose 10% *Hypoglycemia IV PRN PRN Hypoglycemia Protocol Epoetin Lenny-epbx 10,000 unit 12/05/21 10:00 12/08/21 13:00 Epoetin Lenny-Epbx 10,000 Unit/1 Ml Vial IV 10,000 unit ED PRN Administration hemodialysis Famotidine 10 mg 12/04/21 22:00 12/10/21 09:12 Famotidine 10 Mg Tab PO 10 mg BID KHARI Administration Fentanyl 50 mcg 12/09/21 13:35 Fentanyl 100 Mcg/2 Ml Inj IV Q10MIN PRN ANALGESIA Heparin Sodium (Porcine) 5,000 unit 12/02/21 06:00 12/10/21 14:11 Heparin 5,000 Unit/1 Ml Vial SUB-Q 5,000 unit Q8HR KHARI Administration Hydrophilic Ointment 1 applic 12/02/21 17:32 Lip Therapy Vaseline TP Q2HR PRN Dry Lips Propofol 1,000 mg in 100 mls @ 1.839 mls/hr 12/02/21 18:00 12/10/21 07:00 Diprivan 10 Mg/Ml IV 0 mcg/kg/min TITR KHARI 0 mls/hr Titration Protocol 5 MCG/KG/MIN Sodium Chloride 100 mls @ 999 mls/hr 12/07/21 15:36 Nacl 0.9% IV ED PRN Hypotension Fentanyl Citrate 2,000 mcg in 100 mls @ 3.25 mls/hr 12/09/21 14:00 12/10/21 06:32 Fentanyl Drip Premix IV 1 mcg/kg/hr TITR KHARI 3.25 mls/hr Titration Protocol 1 MCG/KG/HR Vasopressin 20 unit/ Sodium 101 mls @ 9.09 mls/hr 12/09/21 14:00 12/10/21 04:39 Chloride IV 0.03 units/min TITR KHARI 9.09 mls/hr Administration Protocol 0.03 UNITS/MIN NORepinephrine/NS 8 MG-250 ML 8 mg in 250 mls @ 3.75 mls/hr 12/09/21 14:00 12/10/21 14:04 Norepinephrine/Ns 8 Mg-250 Ml (Double Conc) IV 2 mcg/min TITRATE KHARI 3.75 mls/hr Titration Protocol 2 MCG/MIN Cefepime HCl 1 gm in 100 mls @ 200 mls/hr 12/10/21 18:00 Cefepime/Ns 1 Gm/100 Ml IV QPM [facility] Protocol Insulin Glargine 25 units 12/09/21 22:00 12/09/21 21:30 Insulin Glargine 100 Units/Ml SUB-Q 25 units QHS [facility] Administration Insulin Human Lispro 0 unit 12/03/21 00:00 12/10/21 11:33 Insulin Lispro 100 Unit/Ml SUB-Q 3 unit Q6HR [facility] Administration Protocol Levalbuterol HCl 0.63 mg 12/02/21 10:00 Levalbuterol 0.63 Mg/3 Ml Nebu IH Q8HRT PRN Shortness Of Breath Magnesium Hydroxide 30 ml 12/02/21 04:37 Magnesium Hydroxide (Mom) Oral Liqd Udc PO Q4H PRN Constipation Metoprolol Tartrate 25 mg 12/02/21 15:00 12/10/21 09:12 Metoprolol Tartrate 25 Mg Tab PO Not Given QDAY [facility] Metoprolol Tartrate 2.5 mg 12/06/21 11:11 12/07/21 17:48 Metoprolol Tartrate 5 Mg/5 Ml Inj IV 2.5 mg Q6HR PRN Administration Tachycardia Multi-Ingred Cream/Lotion/Oil/Oint 1 applic 12/02/21 17:32 Mineral Oil/Petrolatum, White Ophth Oint 3.5 Gm OU Q4HR PRN Dry Eye(s) Ondansetron HCl 4 mg 12/02/21 04:37 Ondansetron 4 Mg/2 Ml Inj IV Q8H PRN Nausea And Vomiting Pravastatin Sodium 80 mg 12/02/21 22:00 12/09/21 21:17 Pravastatin 80 Mg Tab PO 80 mg QHS KHARI Administration Quetiapine Fumarate 50 mg 12/06/21 22:00 12/09/21 21:30 Quetiapine 25 Mg Tab PO 50 mg QHS KHARI Administration Senna/Docusate Sodium 1 tab 12/02/21 22:00 12/10/21 09:12 Sennosides/Docusate Sodium 8.6/50 Mg Tab FEEDTUBE 1 tab BID KHARI Administration Sodium Chloride 10 ml 12/02/21 10:00 12/10/21 09:12 Sodium Chloride 0.9% 10 Ml Flush Syringe IV 10 ml BID KHARI Administration Sodium Chloride 10 ml 12/02/21 04:37 Sodium Chloride 0.9% 10 Ml Flush Syringe IV PRN PRN LINE FLUSH Nutrition/Malnutrition Assess - Dietary Evaluation Nutrition/Malnutrition Findings: Nutrition Notes Start: 12/03/21 16:28 Freq: Status: Active Protocol: Document 12/06/21 16:59 ONI (Rec: 12/06/21 17:19 ONI [id number]) Nutrition Notes Initial or Follow up Brief Note Current Diagnosis Acute Kidney Injury,Diabetes, Sepsis,Hypertension, Respiratory Failure, Hyperlipidemia Other Pertinent Diagnosis Pneumonia, Lactic Acidosis, Metabolic Acidosis, RAYNE+HD, PVD, R-AKA. Current Diet TF-Nepro w/CARBSTEADY @ 30 ml/ hr (since D 12/05). Height 5 ft 4 in Weight 61.3 kg Lamar Body Weight (kg) 54.54 BMI 23.1 Weight change and time frame No body weight change reported . Weight Status Appropriate Subjective/Other Information RD consult for routine F/U on TF tolerance. TF infusing as prescribed. No report available on tolerance. Pt continues on Mechanical Ventilation. Percent of energy/protein needs met: Prescribed TF-Nepro w/ CARBSTEADY @ 30 ml/hr provides for energy/protein needs (1, 296 Kcal/58 g) -in addition, Propofol adds 49 Kcal- during LOS, 108% Kcal; 78% AA. #1 Nutrition Diagnosis Inadequate oral intake Diagnosis Progress(for reassessment Continues documentation) Is patient on ventilator? Yes Is Patient Ambulatory and/or Out of Bed No REE-([facility]-confined to bed) [phone] Calculation Used for Recommendations [facility] Additional Notes Protein: >1.2 g/Kg; >74 g/day. Fluids: 1 ml/Kcal, or as per MD. Nutrition Intervention Nutrition Support: Nepro w/CARBSTEADY @ 30 ml/hr. Flush: 130 ml water Q 4 hr, or as per MD. Kcal 1,296 Protein (gm) 58 Carbohydrates (gm) 116 Fat (gm) 69 Fluid (mL) 523 Fiber (gm) 9 % RDI: 104% Kcal; 78% AA. Goal #1 Provide at least 75% of energy /protein needs through Enteral Feeding during LOS. Goal #2 Maintain body weight within +/ -3% of admission body weight during LOS. Follow-Up By: 12/12/21 Additional Comments Continue monitoring TF tolerance and BM.
--- NOTE | 2021-12-10 16:56 | Progress Note ---
Assessment and Plan - Patient Problems (1) Non-ST elevation myocardial infarction (NSTEMI) Current Visit: Yes Status: Acute Plan to address problem: Patient presented to the hospital with acute pulmonary edema and ECG evidence of ST depression of acute inferior lateral ischemia. Hospital course complicated by the further development of a right upper lobe pneumonia, respiratory failure, currently on the ventilator. Due to the patient's advanced age, frailty, multiple comorbidities, including advanced dementia and end-stage renal failure, she is not a candidate for aggressive and invasive cardiac evaluation and therapies. We will continue supportive management with medical therapy for coronary artery disease and heart failure as tolerated. Echocardiogram shows a severe dilated cardiomyopathy, ejection fraction 30 to 35%. Subjective Date of service: 12/10/21 Principal diagnosis: AHRF; Pulm Edema;Pneumonia; Sepsis; Met. acidosis; Acute Kidney Injury; HTN Interval history: Patient is on the vent, unresponsive. On compliance monitor sinus with frequent ectopy. Objective Vital Signs Temp Pulse Pulse Resp BP Pulse Ox Pulse Ox 12/10/21 16:25 98.9 F 12/10/21 16:00 89 85 24 93/42 97 12/10/21 15:36 100 H 112/54 98 12/10/21 15:08 102 H 107/53 98 12/10/21 15:00 104 H 107/53 12/10/21 14:30 101 H 95/44 96 12/10/21 14:00 105 H 110/43 95 12/10/21 13:30 112 H 118/53 96 12/10/21 13:00 115 H 116/52 96 12/10/21 12:36 99 F 100 H 22 125/49 98 12/10/21 12:34 107 H 93/47 98 12/10/21 12:30 105 H 114/47 97 12/10/21 12:00 111 H 112 H 24 93/47 98 12/10/21 11:52 131 H 93/47 12/10/21 11:45 99 H 109/49 12/10/21 11:39 98.9 F 12/10/21 11:30 109 H 106/46 96 12/10/21 11:15 88 104/43 12/10/21 11:08 98 H 95/47 12/10/21 11:00 112 H 87/44 95 12/10/21 10:45 104 H 90/43 02/23/22 10:30 118 H 102/42 94 02/22 10:15 84 98/44 02 10:03 79 100/43 02/22 10:00 99.0 F 82 22 103/41 94 96 02/22 09:30 86 95/41 94 12/10/21 09:12 93 H 102/45 02/22 09:00 89 102/45 93 12/10/ 08:30 86 104/45 94 12/10/21 08:00 93 H 109/49 94 02/ 07:30 93 H 111/46 93 02 07:27 91 H 91 H 22 94 12/10/21 07:16 99.0 F 12/10/21 07:00 85 98/44 94 12/10/21 06:30 90 98/38 93 12/10/21 06:00 95 H 107/52 95 02/22 05:30 94 H 96/50 02 05:00 94 H 105/43 94 12/10/21 04:30 100 H 106/47 94 0222 04:07 87 97/46 94 02 04:00 99.4 F 86 95 H 28 H 97/46 94 0223/22 03:30 84 90/43 94 02/22 03:00 95 H 91/40 94 0223/22 02:30 93 H 91/45 93 22 02:00 91 H 94/51 94 02/22 01:30 93 H 91/47 95 0223/22 01:00 92 H 95/48 95 0223/22 00:30 95 H 97/46 94 0223/22 00:02 94 H 95/45 95 0223/22 00:00 98.3 F 90 89 25 H 86/40 94 02/22/22 23:30 92 H 90/44 94 0222/22 23:00 103 H 122/62 96 02/22/22 22:30 96 H 115/52 95 0222/22 22:00 97 H 114/55 95 02/22/22 21:30 101 H 110/58 97 02/22/22 21:00 96 H 103/49 95 0222/22 20:30 90 93/42 95 02/22/22 20:00 99.4 F 102 H 86 26 H 97/45 96 12/09/21 19:32 95 H 102/45 96 12/09/21 19:30 95 H 102/45 96 12/09/21 19:00 105 H 98/47 96 12/09/21 18:30 102 H 109/53 96 12/09/21 18:00 101 H 112/58 97 12/09/21 17:30 103 H 109/59 97 12/09/21 17:00 103 H 107/54 96 - Physical Examination General: Cachectic, Other (Unresponsive, intubated, on the vent) HEENT: Positive: Other (Pupils nonreactive) Neck: Positive: neck supple Cardiac: Positive: Irregularly Regular Lungs: Positive: Decreased Breath Sounds Neuro: Positive: Other (Unresponsive, intubated on the vent) Abdomen: Positive: Soft Skin: Positive: Clear Extremities: Absent: edema - Labs and Meds CBC 12/10/21 Range/Units 04:30 WBC 18.2 H (4.5-11.0) K/mm3 RBC 2.72 L (3.65-5.03) M/mm3 Hgb 7.9 L (10.1-14.3) gm/dl Hct 24.4 L (30.3-42.9) % Plt Count 257 (140-440) K/mm3 Comprehensive Metabolic Panel 12/10/21 Range/Units 04:30 Sodium 142 (137-145) mmol/L Potassium 3.9 (3.6-5.0) mmol/L Chloride 99.3 (98-107) mmol/L Carbon Dioxide 15 L D (22-30) mmol/L BUN 96 H (7-17) mg/dL Creatinine 6.1 H (0.6-1.2) mg/dL Glucose 215 H (65-100) mg/dL Calcium 8.2 L (8.4-10.2) mg/dL - Allied health notes Allied health notes reviewed: nursing
--- NOTE | 2021-12-10 16:57 | Cat Scan Report ---
CT head/brain wo con INDICATION / CLINICAL INFORMATION: 86 years Female; ams. TECHNIQUE: Routine CT head without contrast. All CT scans at this location are performed using CT dos e reduction for ALARA by means of automated exposure control. COMPARISON: None. 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 The motion also degrades image quality. However, there is ex tensive cerebral white matter disease most consistent with microvascular angiopathy. 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 There is mild cerebral atrophy with associated prominence of the ventricular system. There is no rachell r CT evidence of acute intracranial hemorrhage or significant mass effect. ORBITS: No significant abnormality of visualized orbits. SINUSES / MASTOIDS: There is moderate opacification within the left maxillary sinus. There is presenc e of endotracheal and nasogastric tubes. Scattered opacification is seen within the mastoid air cells . CRANIOCERVICAL JUNCTION: No significant abnormality. ADDITIONAL FINDINGS: There is dense calcification involving visualized intracranial vertebral and int ernal carotid arteries. IMPRESSION: 1. There is extensive microvascular angiopathy without clear CT evidence of acute intracranial hemorr janay. 2. 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 Signer Name: Chandra Pryor MD Signed: 12/10/2021 4:53 PM Workstation Name: [id number]
--- NOTE | 2021-12-10 17:18 | Electrocardiograph Report ---
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
[2021-12-10] MEDS: CEFEPIME/NS 1 GM/100 ML 1 GM/100 ML BAG IV SCH (17:52)
--- NOTE | 2021-12-10 17:52 | Progress Note ---
Assessment and Plan Cultures: 12/02/2021 blood culture: no growth COVID-19 PCR: negative 12/02/2021 sputum culture: Usual respiratory mahesh 12/02/2021 urine culture: no growth A/P: 86-year-old female with hypertension, diabetes, peripheral vascular disease, prior right AKA admitted with shortness of breath: #Severe sepsis, secondary to pneumonia v/s fluid overload, acute respiratory failure: on the vent. #Severe metabolic acidosis, lactic acidosis #Acute renal failure: Renally adjust antibiotics. Planned for HD. #Acute encephalopathy: Likely metabolic. Recs: -Cefepime re-started as leukocytosis worsening. -Ordered new respiratory culture. Sadia Flynn MD [facility] O: [phone] F: [phone] Subjective Date of service: 12/10/21 Principal diagnosis: AHRF; Pulm Edema;Pneumonia; Sepsis; Met. acidosis; Acute Kidney Injury; HTN Interval history: Afebrile overnight, white count increased to 18.2. Objective - Exam Narrative Exam: Physical Exam: Constitutional: sedated, intubated, on the vent Head, Ears, Nose: Normocephalic, atraumatic. External ears, nose normal Eyes: Conjunctivae/corneas clear. No icterus. No ptosis. Neck: intubated Oral: intubated Cardiovascular: S1, S2 + Respiratory: AE fair bilaterally and equal GI: Soft, bowel sounds hypo Musculoskeletal: No pedal edema, no cyanosis. R AKA well healed Skin: No rash or abscess Hem/Lymphatic: No palpable cervical or supraclavicular nodes. No lymphangitis Psych: no agitation Neurological: sedated, intubated, on the vent, exam limited - Constitutional Vitals: Vital Signs Temp Pulse Resp BP Pulse Ox 98.9 F 85 24 93/42 94 12/10/21 16:25 12/10/21 16:00 12/10/21 16:00 12/10/21 16:00 12/10/21 16:00 Temperature -Last 24 Hours Temperature 98.9 F Temperature 99 F Temperature 98.9 F Temperature 99.0 F Temperature 99.0 F Temperature 99.4 F Temperature 98.3 F Temperature 99.4 F - Labs CBC & Chem 7: 12/10/21 04:30 12/10/21 04:30 Labs: Abnormal lab results 12/09/21 12/09/21 12/10/21 Range/Units 21:29 23:16 04:30 WBC 18.2 H (4.5-11.0) K/mm3 RBC 2.72 L (3.65-5.03) M/mm3 Hgb 7.9 L (10.1-14.3) gm/dl Hct 24.4 L (30.3-42.9) % RDW 16.0 H (13.2-15.2) % Carbon Dioxide (22-30) mmol/L BUN (7-17) mg/dL Creatinine (0.6-1.2) mg/dL Glucose (65-100) mg/dL POC Glucose 224 H 215 H (70-105) mg/dL Lactic Acid (0.7-2.0) mmol/L Calcium (8.4-10.2) mg/dL Phosphorus (2.5-4.5) mg/dL 12/10/21 12/10/21 12/10/21 Range/Units 04:30 05:11 10:52 WBC (4.5-11.0) K/mm3 RBC (3.65-5.03) M/mm3 Hgb (10.1-14.3) gm/dl Hct (30.3-42.9) % RDW (13.2-15.2) % Carbon Dioxide 15 L D (22-30) mmol/L BUN 96 H (7-17) mg/dL Creatinine 6.1 H (0.6-1.2) mg/dL Glucose 215 H (65-100) mg/dL POC Glucose 183 H 179 H (70-105) mg/dL Lactic Acid (0.7-2.0) mmol/L Calcium 8.2 L (8.4-10.2) mg/dL Phosphorus 6.70 H D (2.5-4.5) mg/dL 12/10/21 12/10/21 Range/Units 14:29 15:49 WBC (4.5-11.0) K/mm3 RBC (3.65-5.03) M/mm3 Hgb (10.1-14.3) gm/dl Hct (30.3-42.9) % RDW (13.2-15.2) % Carbon Dioxide (22-30) mmol/L BUN (7-17) mg/dL Creatinine (0.6-1.2) mg/dL Glucose (65-100) mg/dL POC Glucose 222 H (70-105) mg/dL Lactic Acid 3.90 H* (0.7-2.0) mmol/L Calcium (8.4-10.2) mg/dL Phosphorus (2.5-4.5) mg/dL
[2021-12-10] MEDS: INSULIN GLARGINE 100 UNITS/ML SUB-Q SCH (21:16)
[2021-12-10] MEDS: QUEtiapine 25 MG TAB PO SCH (21:17)
[2021-12-10] MEDS: PRAVASTATIN 80 MG TAB PO SCH (21:17)
[2021-12-11] MEDS: INSULIN LISPRO 100 UNIT/ML SUB-Q SCH ×4 (00:28→17:52)
[2021-12-11] MEDS: fentaNYL DRIP Premix 2,000 MCG/100 ML BAG IV SCH ×2 (01:46→13:48)
[2021-12-11 05:08] LABS: Hematocrit 23.3 % (30.3-42.9); Hemoglobin 7.3 gm/dl (10.1-14.3); Mean Corpuscular HGB Conc 31 % (30-34); Mean Corpuscular Volume 90 fl (79-97); Platelet Count 234 K/mm3 (140-440); Red Blood Count 2.59 M/mm3 (3.65-5.03); Red Cell Distribution Width 16.2 % (13.2-15.2)
[2021-12-11] MEDS: VASOPRESSIN 20 UNIT in SODIUM CHLORIDE 0.9% 100 ML IV SCH (05:15)
[2021-12-11] MEDS: HEPARIN 5,000 UNIT/1 ML VIAL SUB-Q SCH ×3 (05:20→21:12)
[2021-12-11 05:39] LABS: Calcium 7.6 mg/dL (8.4-10.2)
[2021-12-11] MEDS: ASPIRIN 81 MG TAB CHEW PO SCH (09:10)
[2021-12-11] MEDS: SENNOSIDES/DOCUSATE SODIUM 8.6/50 MG TAB FEEDTUBE SCH ×2 (09:10→21:14)
[2021-12-11] MEDS: CLOPIDOGREL 75 MG TAB PO SCH (09:10)
[2021-12-11] MEDS: FAMOTIDINE 10 MG TAB PO SCH ×2 (09:10→21:10)
[2021-12-11] MEDS: CILOSTAZOL 100 MG TAB PO SCH ×2 (09:10→21:13)
[2021-12-11] MEDS: METOPROLOL TARTRATE 25 MG TAB PO SCH (09:12)
--- NOTE | 2021-12-11 09:14 | Consultation ---
History of Present Illness Consult date: 12/11/21 Reason for Consult: SOB and confusion History of present illness: Shortness of breath. History of present illness: 86-year-old -[place] female with known history of hypertension ,diabetes mellitus and right AKA presents to the emergency room on12/02/2021 complaining of shortness of breath which has been ongoing for the past few days. She has also had some cough which is productive. She admits to having some fever at home but denies any chills. She denies any chest pain, no headache or dizziness and no diaphoresis. Patient denies any sick contacts and no recent travel. Denies contact with anyone with COVID-19. She states she has been fully vaccinated against COVID- 19. Work-up in the emergency room today, chest x-ray reveals development of bilateral operative hilar airspace opacities compatible with alveolar pulmonary edema. Labs were significant for leukocytosis of 15.4, D-dimer 1461, potassium of 3.5, CO2 of 4, lactic acid of 15.7, troponin of 2.6, BNP greater than 3500: Patient commenced on empiric IV antibiotics for possible underlying pneumonia. COVID-19.is negative CT brain is remarkable for angiopathy and right ICA distal aneurysmal coil pt. is with a new onset Renal failure BUN/Cr#76/5.6 she is intubated currently and is on sedation maintence-Fentanyl 1 mc, and is on norepinephrrine she is on Seroquel ,ASA and Plavix, provachol echo showed Ef#30-35% Past History Past Medical History: diabetes, hypertension, hyperlipidemia Past Surgical History: mastectomy (Left) Social history: smoking (Former smoker) Family history: no significant family history Medications and Allergies Allergies Allergy/AdvReac Type Severity Reaction Status Date / Time No Known Allergies Allergy Verified 04/05/19 15:30 Home Medications Medication Instructions Recorded Confirmed Last Taken Type Gabapentin 300 mg PO BID 04/05/19 04/06/19 Unknown History Metoprolol [Lopressor TAB] 25 mg PO QDAY 04/05/19 04/06/19 Unknown History Simvastatin 40 mg PO QHS 04/05/19 04/06/19 Unknown History Vitamin D2 50,000 units PO QWEEK 04/05/19 04/06/19 Unknown History amLODIPine 10 mg PO DAILY 04/05/19 04/05/19 Unknown History metFORMIN [Glucophage] 500 mg PO QHS 04/05/19 04/06/19 Unknown History raNITIdine HCl [Zantac] 300 mg PO QDAY 04/05/19 04/06/19 Unknown History Aspirin [Aspirin BABY CHEW TAB] 81 mg PO QDAY #30 tab.chew 04/12/19 Unknown Rx Clopidogrel [Plavix] 75 mg PO QDAY #30 tablet 04/12/19 Unknown Rx cilostazoL [Pletal] 50 mg PO BID #30 tablet 04/12/19 Unknown Rx oxyCODONE /ACETAMINOPHEN [Percocet 2 tab PO Q6H PRN #20 tablet 04/12/19 Unknown Rx 5/325 mg] Review of Systems Constitutional: fever, no chills Ears, nose, mouth and throat: no nasal congestion, no sore throat Cardiovascular: no chest pain, no palpitations Respiratory: cough, shortness of breath Gastrointestinal: no abdominal pain, no nausea, no vomiting, no diarrhea Genitourinary Female: no flank pain, no dysuria, no hematuria Musculoskeletal: no neck pain, no low back pain Integumentary: no rash, no pruritis Neurological: no headaches, no confusion Psychiatric: no anxiety, no depression Endocrine: no polyphagia, no polydipsia, no polyuria, no nocturia Past History Past Medical History: CAD, diabetes, hypertension, hyperlipidemia, PVD Past Surgical History: mastectomy (Left) Social history: smoking (Former smoker) Family history: no significant family history Medications and Allergies Allergies Allergy/AdvReac Type Severity Reaction Status Date / Time No Known Allergies Allergy Verified 12/09/21 09:39 Home Medications Medication Instructions Recorded Confirmed Last Taken Type Gabapentin 300 mg PO BID 04/05/19 04/06/19 Unknown History Metoprolol [Lopressor TAB] 25 mg PO QDAY 04/05/19 04/06/19 Unknown History Simvastatin 40 mg PO QHS 04/05/19 04/06/19 Unknown History Vitamin D2 50,000 units PO QWEEK 04/05/19 04/06/19 Unknown History amLODIPine 10 mg PO DAILY 04/05/19 04/05/19 Unknown History metFORMIN [Glucophage] 500 mg PO QHS 04/05/19 04/06/19 Unknown History raNITIdine HCl [Zantac] 300 mg PO QDAY 04/05/19 04/06/19 Unknown History Aspirin [Aspirin BABY CHEW TAB] 81 mg PO QDAY #30 tab.chew 04/12/19 Unknown Rx Clopidogrel [Plavix] 75 mg PO QDAY #30 tablet 04/12/19 Unknown Rx cilostazoL [Pletal] 50 mg PO BID #30 tablet 04/12/19 Unknown Rx oxyCODONE /ACETAMINOPHEN [Percocet 2 tab PO Q6H PRN #20 tablet 04/12/19 Unknown Rx 5/325 mg] Active Meds: Active Medications Acetaminophen (Acetaminophen 325 Mg Tab) 650 mg PO Q4H PRN PRN Reason: Pain MILD(1-3)/Fever >100.5/HYLTON Last Admin: 12/07/21 04:58 Dose: 650 mg Aspirin (Aspirin 81 Mg Tab Chew) 81 mg PO QDAY [facility] Last Admin: 12/11/21 09:10 Dose: 81 mg Cilostazol (Cilostazol 100 Mg Tab) 50 mg PO BID [facility] Last Admin: 12/11/21 09:10 Dose: 50 mg Clopidogrel Bisulfate (Clopidogrel 75 Mg Tab) 75 mg PO QDAY [facility] Last Admin: 12/11/21 09:10 Dose: 75 mg Dextrose (Dextrose 10% *Hypoglycemia) 0 ml IV PRN PRN; Protocol PRN Reason: Hypoglycemia Epoetin Lenny-epbx (Epoetin Lenny-Epbx 10,000 Unit/1 Ml Vial) 10,000 unit IV ED PRN PRN Reason: hemodialysis Last Admin: 12/08/21 13:00 Dose: 10,000 unit Famotidine (Famotidine 10 Mg Tab) 10 mg PO BID [facility] Last Admin: 12/11/21 09:10 Dose: 10 mg Fentanyl (Fentanyl 100 Mcg/2 Ml Inj) 50 mcg IV Q10MIN PRN PRN Reason: ANALGESIA Heparin Sodium (Porcine) (Heparin 5,000 Unit/1 Ml Vial) 5,000 unit SUB-Q Q8HR [facility] Last Admin: 12/11/21 05:20 Dose: 5,000 unit Hydrophilic Ointment (Lip Therapy Vaseline) 1 applic TP Q2HR PRN PRN Reason: Dry Lips Propofol (Diprivan 10 Mg/Ml) 1,000 mg in 100 mls @ 1.839 mls/hr IV TITR [facility]; Protocol Last Titration: 12/10/21 07:00 Dose: 0 mcg/kg/min, 0 mls/hr Sodium Chloride (Nacl 0.9%) 100 mls @ 999 mls/hr IV ED PRN PRN Reason: Hypotension Fentanyl Citrate (Fentanyl Drip Premix) 2,000 mcg in 100 mls @ 3.25 mls/hr IV TITR [facility]; Protocol Last Titration: 12/11/21 07:30 Dose: 2 mcg/kg/hr, 6.5 mls/hr Vasopressin 20 unit/ Sodium (Chloride) 101 mls @ 9.09 mls/hr IV TITR [facility]; Protocol Last Admin: 12/11/21 05:15 Dose: 0.03 units/min, 9.09 mls/hr NORepinephrine/NS 8 MG-250 ML (Norepinephrine/Ns 8 Mg-250 Ml (Double Conc)) 8 mg in 250 mls @ 3.75 mls/hr IV TITRATE [facility]; Protocol Last Titration: 12/11/21 08:32 Dose: 2 mcg/min, 3.75 mls/hr Cefepime HCl (Cefepime/Ns 1 Gm/100 Ml) 1 gm in 100 mls @ 200 mls/hr IV QPM [facility]; Protocol Last Admin: 12/10/21 17:52 Dose: 200 mls/hr Insulin Glargine (Insulin Glargine 100 Units/Ml) 25 units SUB-Q QHS [facility] Last Admin: 12/10/21 21:16 Dose: 25 units Insulin Human Lispro (Insulin Lispro 100 Unit/Ml) 0 unit SUB-Q Q6HR [facility]; Protocol Last Admin: 12/11/21 05:20 Dose: 3 unit Levalbuterol HCl (Levalbuterol 0.63 Mg/3 Ml Nebu) 0.63 mg IH Q8HRT PRN PRN Reason: Shortness Of Breath Magnesium Hydroxide (Magnesium Hydroxide (Mom) Oral Liqd Udc) 30 ml PO Q4H PRN PRN Reason: Constipation Metoprolol Tartrate (Metoprolol Tartrate 25 Mg Tab) 25 mg PO QDAY [facility] Last Admin: 12/10/21 09:12 Dose: Not Given Metoprolol Tartrate (Metoprolol Tartrate 5 Mg/5 Ml Inj) 2.5 mg IV Q6HR PRN PRN Reason: Tachycardia Last Admin: 12/07/21 17:48 Dose: 2.5 mg Multi-Ingred Cream/Lotion/Oil/Oint (Mineral Oil/Petrolatum, White Ophth Oint 3.5 Gm) 1 applic OU Q4HR PRN PRN Reason: Dry Eye(s) Ondansetron HCl (Ondansetron 4 Mg/2 Ml Inj) 4 mg IV Q8H PRN PRN Reason: Nausea And Vomiting Pravastatin Sodium (Pravastatin 80 Mg Tab) 80 mg PO QHS [facility] Last Admin: 12/10/21 21:17 Dose: 80 mg Quetiapine Fumarate (Quetiapine 25 Mg Tab) 50 mg PO QHS [facility] Last Admin: 12/10/21 21:17 Dose: 50 mg Senna/Docusate Sodium (Sennosides/Docusate Sodium 8.6/50 Mg Tab) 1 tab FEEDTUBE BID [facility] Last Admin: 12/11/21 09:10 Dose: 1 tab Sodium Chloride (Sodium Chloride 0.9% 10 Ml Flush Syringe) 10 ml IV BID [facility] Last Admin: 12/11/21 09:10 Dose: 10 ml Sodium Chloride (Sodium Chloride 0.9% 10 Ml Flush Syringe) 10 ml IV PRN PRN PRN Reason: LINE FLUSH Physical Examination - Vital Signs Vital Signs: Vital Signs Pulse Ox 95 12/02/21 00:46 - Constitutional General appearance: comfortable - EENT EENT: Present: PERRL, mucous membranes moist - Respiratory Respiratory: Present: chest non-tender, lungs clear, rhonchi - Cardiovascular Cardiovascular: Present: regular rate, normal S1, normal S2 Extremities: Present: no peripheral edema bilatateraly, no clubbing, cyanosis, other (right AKA) - Gastrointestinal Gastrointestinal: Present: normoactive bowel sounds - Integumentary Integumentary: Present: normal - Neurologic Cranial nerve examination: PERRL, EOMI, other (corneal intact , no gag) Speech examination: other (intubated) Detailed motor examination: other (no movment to stimuli ) Results - Laboratory Findings CBC and BMP: 12/11/21 04:33 12/11/21 04:33 Abnormal Lab Findings: Abnormal Labs 12/02/21 12/02/21 12/02/21 00:52 00:52 01:24 WBC 15.4 H RBC Hgb Hct MCHC RDW 15.8 H Lymph % (Auto) 6.3 L Henry % (Auto) 11.7 H Lymph # (Auto) 1.0 L Henry # (Auto) 1.8 H Seg Neutrophils % 81.8 H Lymphocytes % (Manual) Seg Neutrophils # 12.6 H Lymphocytes # (Manual) PT INR D-Dimer ABG pH ABG pO2 ABG HCO3 ABG O2 Saturation ABG Base Excess ABG Hemoglobin VBG pH Oxyhemoglobin Sodium Potassium Chloride Carbon Dioxide BUN Creatinine Glucose POC Glucose Lactic Acid Calcium Phosphorus Magnesium AST ALT Lactate Dehydrogenase Total Creatine Kinase CK-MB (CK-2) CK-MB (CK-2) Rel Index Troponin T C-Reactive Protein NT-Pro-B Natriuret Pep Triglycerides HDL Cholesterol Urine WBC (Auto) 27.0 H Urine Creatinine 24.4 H Urine Total Protein 111 H 12/02/21 12/02/21 12/02/21 01:24 01:24 01:24 WBC RBC Hgb Hct MCHC RDW Lymph % (Auto) Henry % (Auto) Lymph # (Auto) Henry # (Auto) Seg Neutrophils % Lymphocytes % (Manual) Seg Neutrophils # Lymphocytes # (Manual) PT 15.9 H INR 1.15 H D-Dimer ABG pH ABG pO2 ABG HCO3 ABG O2 Saturation ABG Base Excess ABG Hemoglobin VBG pH Oxyhemoglobin Sodium Potassium 3.5 L Chloride Carbon Dioxide 4 L* BUN 43 H Creatinine 5.1 H Glucose 239 H POC Glucose Lactic Acid 15.70 H* Calcium Phosphorus Magnesium AST 86 H ALT 69 H Lactate Dehydrogenase Total Creatine Kinase 254 H CK-MB (CK-2) 20.2 H CK-MB (CK-2) Rel Index 7.9 H Troponin T C-Reactive Protein NT-Pro-B Natriuret Pep Triglycerides HDL Cholesterol Urine WBC (Auto) Urine Creatinine Urine Total Protein 12/02/21 12/02/21 12/02/21 01:24 01:24 04:18 WBC RBC Hgb Hct MCHC RDW Lymph % (Auto) Henry % (Auto) Lymph # (Auto) Henry # (Auto) Seg Neutrophils % Lymphocytes % (Manual) Seg Neutrophils # Lymphocytes # (Manual) PT INR D-Dimer 1461.68 H ABG pH ABG pO2 ABG HCO3 ABG O2 Saturation ABG Base Excess ABG Hemoglobin VBG pH 7.167 L* Oxyhemoglobin Sodium Potassium Chloride Carbon Dioxide BUN Creatinine Glucose POC Glucose Lactic Acid Calcium Phosphorus Magnesium AST ALT Lactate Dehydrogenase Total Creatine Kinase CK-MB (CK-2) CK-MB (CK-2) Rel Index Troponin T 2.600 H* C-Reactive Protein NT-Pro-B Natriuret Pep > 3500 H Triglycerides HDL Cholesterol 74 H Urine WBC (Auto) Urine Creatinine Urine Total Protein 12/02/21 12/02/21 12/02/21 04:18 04:18 10:47 WBC RBC Hgb Hct MCHC RDW Lymph % (Auto) Henry % (Auto) Lymph # (Auto) Henry # (Auto) Seg Neutrophils % Lymphocytes % (Manual) Seg Neutrophils # Lymphocytes # (Manual) PT INR D-Dimer ABG pH ABG pO2 ABG HCO3 ABG O2 Saturation ABG Base Excess ABG Hemoglobin VBG pH Oxyhemoglobin Sodium Potassium Chloride Carbon Dioxide 7 L* BUN 51 H Creatinine 5.9 H Glucose 255 H 224 H POC Glucose Lactic Acid 15.40 H* Calcium Phosphorus Magnesium AST ALT Lactate Dehydrogenase 958 H Total Creatine Kinase CK-MB (CK-2) CK-MB (CK-2) Rel Index Troponin T C-Reactive Protein 6.60 H NT-Pro-B Natriuret Pep Triglycerides HDL Cholesterol Urine WBC (Auto) Urine Creatinine Urine Total Protein 12/02/21 12/02/21 12/02/21 10:53 13:51 13:51 WBC RBC Hgb Hct MCHC RDW Lymph % (Auto) Henry % (Auto) Lymph # (Auto) Henry # (Auto) Seg Neutrophils % Lymphocytes % (Manual) Seg Neutrophils # Lymphocytes # (Manual) PT INR D-Dimer ABG pH ABG pO2 ABG HCO3 ABG O2 Saturation ABG Base Excess ABG Hemoglobin VBG pH Oxyhemoglobin Sodium Potassium Chloride Carbon Dioxide BUN Creatinine Glucose POC Glucose 194 H Lactic Acid 11.70 H* Calcium Phosphorus Magnesium AST ALT Lactate Dehydrogenase Total Creatine Kinase CK-MB (CK-2) CK-MB (CK-2) Rel Index Troponin T 2.500 H* C-Reactive Protein NT-Pro-B Natriuret Pep Triglycerides HDL Cholesterol Urine WBC (Auto) Urine Creatinine Urine Total Protein 12/02/21 12/02/21 12/02/21 20:31 22:56 22:56 WBC RBC Hgb Hct MCHC RDW Lymph % (Auto) Henry % (Auto) Lymph # (Auto) Henry # (Auto) Seg Neutrophils % Lymphocytes % (Manual) Seg Neutrophils # Lymphocytes # (Manual) PT INR D-Dimer ABG pH ABG pO2 156.2 H ABG HCO3 15.4 L ABG O2 Saturation ABG Base Excess -8.7 L ABG Hemoglobin VBG pH Oxyhemoglobin Sodium 147 H Potassium 3.4 L Chloride Carbon Dioxide 18 L D BUN 59 H Creatinine 6.2 H Glucose 150 H POC Glucose Lactic Acid 6.10 H* Calcium 8.3 L Phosphorus Magnesium AST ALT Lactate Dehydrogenase Total Creatine Kinase CK-MB (CK-2) CK-MB (CK-2) Rel Index Troponin T C-Reactive Protein NT-Pro-B Natriuret Pep Triglycerides HDL Cholesterol Urine WBC (Auto) Urine Creatinine Urine Total Protein 12/03/21 12/03/21 12/03/21 00:25 00:42 04:00 WBC RBC Hgb Hct MCHC RDW 15.4 H Lymph % (Auto) Henry % (Auto) Lymph # (Auto) Henry # (Auto) Seg Neutrophils % Lymphocytes % (Manual) 7.0 L Seg Neutrophils # Lymphocytes # (Manual) 0.4 L PT INR D-Dimer ABG pH ABG pO2 ABG HCO3 ABG O2 Saturation ABG Base Excess ABG Hemoglobin VBG pH Oxyhemoglobin Sodium Potassium Chloride Carbon Dioxide BUN Creatinine Glucose POC Glucose 150 H Lactic Acid 5.80 H* Calcium Phosphorus Magnesium AST ALT Lactate Dehydrogenase Total Creatine Kinase CK-MB (CK-2) CK-MB (CK-2) Rel Index Troponin T C-Reactive Protein NT-Pro-B Natriuret Pep Triglycerides HDL Cholesterol Urine WBC (Auto) Urine Creatinine Urine Total Protein 12/03/21 12/03/21 12/03/21 04:00 06:14 08:35 WBC RBC Hgb Hct MCHC RDW Lymph % (Auto) Henry % (Auto) Lymph # (Auto) Henry # (Auto) Seg Neutrophils % Lymphocytes % (Manual) Seg Neutrophils # Lymphocytes # (Manual) PT INR D-Dimer ABG pH 7.533 H ABG pO2 120.9 H ABG HCO3 ABG O2 Saturation ABG Base Excess ABG Hemoglobin 11.9 L VBG pH Oxyhemoglobin Sodium Potassium 3.5 L Chloride Carbon Dioxide 21 L BUN 63 H Creatinine 6.3 H Glucose 158 H POC Glucose 145 H Lactic Acid Calcium 7.9 L Phosphorus Magnesium AST ALT Lactate Dehydrogenase Total Creatine Kinase CK-MB (CK-2) CK-MB (CK-2) Rel Index Troponin T C-Reactive Protein NT-Pro-B Natriuret Pep Triglycerides HDL Cholesterol Urine WBC (Auto) Urine Creatinine Urine Total Protein 12/03/21 12/03/21 12/03/21 12:35 13:48 15:51 WBC RBC Hgb Hct MCHC RDW Lymph % (Auto) Henry % (Auto) Lymph # (Auto) Henry # (Auto) Seg Neutrophils % Lymphocytes % (Manual) Seg Neutrophils # Lymphocytes # (Manual) PT INR D-Dimer ABG pH ABG pO2 ABG HCO3 ABG O2 Saturation ABG Base Excess ABG Hemoglobin VBG pH Oxyhemoglobin Sodium Potassium Chloride Carbon Dioxide BUN Creatinine Glucose POC Glucose 151 H 168 H Lactic Acid Calcium Phosphorus Magnesium AST ALT Lactate Dehydrogenase Total Creatine Kinase CK-MB (CK-2) CK-MB (CK-2) Rel Index Troponin T C-Reactive Protein NT-Pro-B Natriuret Pep Triglycerides HDL Cholesterol Urine WBC (Auto) 9.0 H Urine Creatinine Urine Total Protein 12/03/21 12/03/21 12/03/21 16:20 16:35 23:21 WBC RBC Hgb Hct MCHC RDW Lymph % (Auto) Henry % (Auto) Lymph # (Auto) Henry # (Auto) Seg Neutrophils % Lymphocytes % (Manual) Seg Neutrophils # Lymphocytes # (Manual) PT INR D-Dimer ABG pH ABG pO2 ABG HCO3 ABG O2 Saturation ABG Base Excess ABG Hemoglobin VBG pH Oxyhemoglobin Sodium Potassium Chloride 92.3 L Carbon Dioxide BUN 67 H Creatinine 7.1 H Glucose 160 H POC Glucose 158 H 161 H Lactic Acid Calcium 7.3 L Phosphorus Magnesium AST ALT Lactate Dehydrogenase Total Creatine Kinase CK-MB (CK-2) CK-MB (CK-2) Rel Index Troponin T C-Reactive Protein NT-Pro-B Natriuret Pep Triglycerides HDL Cholesterol Urine WBC (Auto) Urine Creatinine Urine Total Protein 12/04/21 12/04/21 12/04/21 04:18 04:18 04:18 WBC RBC 3.29 L Hgb 10.0 L Hct 28.4 L D MCHC 35 H RDW 15.4 H Lymph % (Auto) Henry % (Auto) Lymph # (Auto) Henry # (Auto) Seg Neutrophils % Lymphocytes % (Manual) Seg Neutrophils # Lymphocytes # (Manual) PT INR D-Dimer ABG pH ABG pO2 ABG HCO3 ABG O2 Saturation ABG Base Excess ABG Hemoglobin VBG pH Oxyhemoglobin Sodium Potassium 3.5 L Chloride 91.5 L Carbon Dioxide 33 H D BUN 74 H Creatinine 7.5 H Glucose 155 H POC Glucose Lactic Acid 4.60 H* Calcium 7.2 L Phosphorus 4.60 H Magnesium AST ALT Lactate Dehydrogenase Total Creatine Kinase CK-MB (CK-2) CK-MB (CK-2) Rel Index Troponin T C-Reactive Protein NT-Pro-B Natriuret Pep Triglycerides HDL Cholesterol Urine WBC (Auto) Urine Creatinine Urine Total Protein 12/04/21 12/04/21 12/04/21 10:29 11:08 15:46 WBC RBC Hgb Hct MCHC RDW Lymph % (Auto) Henry % (Auto) Lymph # (Auto) Henry # (Auto) Seg Neutrophils % Lymphocytes % (Manual) Seg Neutrophils # Lymphocytes # (Manual) PT INR D-Dimer ABG pH 7.504 H ABG pO2 40.8 L ABG HCO3 30.1 H ABG O2 Saturation 75.1 L ABG Base Excess 6.6 H ABG Hemoglobin 10.2 L VBG pH Oxyhemoglobin 73.7 L Sodium Potassium Chloride Carbon Dioxide BUN Creatinine Glucose POC Glucose 146 H 155 H Lactic Acid Calcium Phosphorus Magnesium AST ALT Lactate Dehydrogenase Total Creatine Kinase CK-MB (CK-2) CK-MB (CK-2) Rel Index Troponin T C-Reactive Protein NT-Pro-B Natriuret Pep Triglycerides HDL Cholesterol Urine WBC (Auto) Urine Creatinine Urine Total Protein 12/04/21 12/05/21 12/05/21 23:30 04:22 04:22 WBC 12.7 H RBC 3.33 L Hgb 9.6 L Hct 29.3 L MCHC RDW 15.5 H Lymph % (Auto) Henry % (Auto) Lymph # (Auto) Henry # (Auto) Seg Neutrophils % Lymphocytes % (Manual) Seg Neutrophils # Lymphocytes # (Manual) PT INR D-Dimer ABG pH ABG pO2 ABG HCO3 ABG O2 Saturation ABG Base Excess ABG Hemoglobin VBG pH Oxyhemoglobin Sodium Potassium Chloride 90.3 L Carbon Dioxide BUN 89 H Creatinine 8.8 H Glucose 216 H POC Glucose 183 H Lactic Acid Calcium 8.0 L Phosphorus 4.60 H Magnesium AST ALT Lactate Dehydrogenase Total Creatine Kinase CK-MB (CK-2) CK-MB (CK-2) Rel Index Troponin T C-Reactive Protein NT-Pro-B Natriuret Pep Triglycerides 280 H HDL Cholesterol Urine WBC (Auto) Urine Creatinine Urine Total Protein 12/05/21 12/05/21 12/05/21 10:15 10:54 11:57 WBC RBC Hgb Hct MCHC RDW Lymph % (Auto) Henry % (Auto) Lymph # (Auto) Henry # (Auto) Seg Neutrophils % Lymphocytes % (Manual) Seg Neutrophils # Lymphocytes # (Manual) PT INR D-Dimer ABG pH 7.518 H ABG pO2 43.4 L ABG HCO3 28.8 H ABG O2 Saturation 78.6 L ABG Base Excess 5.6 H ABG Hemoglobin 8.4 L VBG pH Oxyhemoglobin 77.1 L Sodium Potassium Chloride Carbon Dioxide BUN Creatinine Glucose POC Glucose 187 H 196 H Lactic Acid Calcium Phosphorus Magnesium AST ALT Lactate Dehydrogenase Total Creatine Kinase CK-MB (CK-2) CK-MB (CK-2) Rel Index Troponin T C-Reactive Protein NT-Pro-B Natriuret Pep Triglycerides HDL Cholesterol Urine WBC (Auto) Urine Creatinine Urine Total Protein 12/05/21 12/05/21 12/05/21 16:34 18:02 23:39 WBC RBC Hgb Hct MCHC RDW Lymph % (Auto) Henry % (Auto) Lymph # (Auto) Henry # (Auto) Seg Neutrophils % Lymphocytes % (Manual) Seg Neutrophils # Lymphocytes # (Manual) PT INR D-Dimer ABG pH ABG pO2 ABG HCO3 ABG O2 Saturation ABG Base Excess ABG Hemoglobin VBG pH Oxyhemoglobin Sodium Potassium Chloride Carbon Dioxide BUN Creatinine Glucose POC Glucose 178 H 167 H 235 H Lactic Acid Calcium Phosphorus Magnesium AST ALT Lactate Dehydrogenase Total Creatine Kinase CK-MB (CK-2) CK-MB (CK-2) Rel Index Troponin T C-Reactive Protein NT-Pro-B Natriuret Pep Triglycerides HDL Cholesterol Urine WBC (Auto) Urine Creatinine Urine Total Protein 12/06/21 12/06/21 12/06/21 04:35 04:35 05:37 WBC 11.8 H RBC 2.99 L Hgb 8.9 L Hct 26.1 L MCHC RDW Lymph % (Auto) Henry % (Auto) Lymph # (Auto) Henry # (Auto) Seg Neutrophils % Lymphocytes % (Manual) Seg Neutrophils # Lymphocytes # (Manual) PT INR D-Dimer ABG pH ABG pO2 ABG HCO3 ABG O2 Saturation ABG Base Excess ABG Hemoglobin VBG pH Oxyhemoglobin Sodium Potassium Chloride 95.0 L Carbon Dioxide BUN 59 H Creatinine 6.3 H Glucose 244 H POC Glucose 251 H Lactic Acid Calcium Phosphorus Magnesium AST ALT Lactate Dehydrogenase Total Creatine Kinase CK-MB (CK-2) CK-MB (CK-2) Rel Index Troponin T C-Reactive Protein NT-Pro-B Natriuret Pep Triglycerides HDL Cholesterol Urine WBC (Auto) Urine Creatinine Urine Total Protein 12/06/21 12/06/21 12/06/21 06:05 11:45 17:19 WBC RBC Hgb Hct MCHC RDW Lymph % (Auto) Henry % (Auto) Lymph # (Auto) Henry # (Auto) Seg Neutrophils % Lymphocytes % (Manual) Seg Neutrophils # Lymphocytes # (Manual) PT INR D-Dimer ABG pH 7.555 H ABG pO2 95.3 H ABG HCO3 27.3 H ABG O2 Saturation ABG Base Excess 4.9 H ABG Hemoglobin 9.0 L VBG pH Oxyhemoglobin Sodium Potassium Chloride Carbon Dioxide BUN Creatinine Glucose POC Glucose 249 H 187 H Lactic Acid Calcium Phosphorus Magnesium AST ALT Lactate Dehydrogenase Total Creatine Kinase CK-MB (CK-2) CK-MB (CK-2) Rel Index Troponin T C-Reactive Protein NT-Pro-B Natriuret Pep Triglycerides HDL Cholesterol Urine WBC (Auto) Urine Creatinine Urine Total Protein 12/06/21 12/07/21 12/07/21 23:24 04:00 04:00 WBC RBC 3.10 L Hgb 8.8 L Hct 27.5 L MCHC RDW 15.8 H Lymph % (Auto) Henry % (Auto) Lymph # (Auto) Henry # (Auto) Seg Neutrophils % Lymphocytes % (Manual) Seg Neutrophils # Lymphocytes # (Manual) PT INR D-Dimer ABG pH ABG pO2 ABG HCO3 ABG O2 Saturation ABG Base Excess ABG Hemoglobin VBG pH Oxyhemoglobin Sodium Potassium Chloride Carbon Dioxide BUN 50 H Creatinine 5.5 H Glucose 248 H POC Glucose 233 H Lactic Acid Calcium Phosphorus Magnesium AST ALT Lactate Dehydrogenase Total Creatine Kinase CK-MB (CK-2) CK-MB (CK-2) Rel Index Troponin T C-Reactive Protein NT-Pro-B Natriuret Pep Triglycerides HDL Cholesterol Urine WBC (Auto) Urine Creatinine Urine Total Protein 12/07/21 12/07/21 12/07/21 04:55 05:40 10:49 WBC RBC Hgb Hct MCHC RDW Lymph % (Auto) Henry % (Auto) Lymph # (Auto) Henry # (Auto) Seg Neutrophils % Lymphocytes % (Manual) Seg Neutrophils # Lymphocytes # (Manual) PT INR D-Dimer ABG pH 7.519 H ABG pO2 65.4 L ABG HCO3 27.1 H ABG O2 Saturation ABG Base Excess 4.1 H ABG Hemoglobin 8.3 L VBG pH Oxyhemoglobin 94.9 L Sodium Potassium Chloride Carbon Dioxide BUN Creatinine Glucose POC Glucose 230 H 215 H Lactic Acid Calcium Phosphorus Magnesium AST ALT Lactate Dehydrogenase Total Creatine Kinase CK-MB (CK-2) CK-MB (CK-2) Rel Index Troponin T C-Reactive Protein NT-Pro-B Natriuret Pep Triglycerides HDL Cholesterol Urine WBC (Auto) Urine Creatinine Urine Total Protein 12/07/21 12/07/21 12/08/21 15:53 23:33 04:00 WBC 14.6 H RBC 2.91 L Hgb 8.9 L Hct 25.6 L MCHC 35 H RDW 15.6 H Lymph % (Auto) Henry % (Auto) Lymph # (Auto) Henry # (Auto) Seg Neutrophils % Lymphocytes % (Manual) Seg Neutrophils # Lymphocytes # (Manual) PT INR D-Dimer ABG pH ABG pO2 ABG HCO3 ABG O2 Saturation ABG Base Excess ABG Hemoglobin VBG pH Oxyhemoglobin Sodium Potassium Chloride Carbon Dioxide BUN Creatinine Glucose POC Glucose 167 H 206 H Lactic Acid Calcium Phosphorus Magnesium AST ALT Lactate Dehydrogenase Total Creatine Kinase CK-MB (CK-2) CK-MB (CK-2) Rel Index Troponin T C-Reactive Protein NT-Pro-B Natriuret Pep Triglycerides HDL Cholesterol Urine WBC (Auto) Urine Creatinine Urine Total Protein 12/08/21 12/08/21 12/08/21 04:00 04:10 05:15 WBC RBC Hgb Hct MCHC RDW Lymph % (Auto) Henry % (Auto) Lymph # (Auto) Henry # (Auto) Seg Neutrophils % Lymphocytes % (Manual) Seg Neutrophils # Lymphocytes # (Manual) PT INR D-Dimer ABG pH 7.511 H ABG pO2 77.8 L ABG HCO3 ABG O2 Saturation ABG Base Excess ABG Hemoglobin 9.0 L VBG pH Oxyhemoglobin Sodium Potassium Chloride 96.3 L Carbon Dioxide BUN 80 H Creatinine 6.4 H Glucose 223 H POC Glucose 193 H Lactic Acid Calcium Phosphorus Magnesium 2.50 H AST ALT Lactate Dehydrogenase Total Creatine Kinase CK-MB (CK-2) CK-MB (CK-2) Rel Index Troponin T C-Reactive Protein NT-Pro-B Natriuret Pep Triglycerides HDL Cholesterol Urine WBC (Auto) Urine Creatinine Urine Total Protein 12/08/21 12/08/21 12/08/21 11:29 16:53 19:56 WBC RBC Hgb Hct MCHC RDW Lymph % (Auto) Henry % (Auto) Lymph # (Auto) Henry # (Auto) Seg Neutrophils % Lymphocytes % (Manual) Seg Neutrophils # Lymphocytes # (Manual) PT INR D-Dimer ABG pH ABG pO2 ABG HCO3 ABG O2 Saturation ABG Base Excess ABG Hemoglobin VBG pH Oxyhemoglobin Sodium Potassium Chloride Carbon Dioxide BUN Creatinine Glucose POC Glucose 202 H 240 H 236 H Lactic Acid Calcium Phosphorus Magnesium AST ALT Lactate Dehydrogenase Total Creatine Kinase CK-MB (CK-2) CK-MB (CK-2) Rel Index Troponin T C-Reactive Protein NT-Pro-B Natriuret Pep Triglycerides HDL Cholesterol Urine WBC (Auto) Urine Creatinine Urine Total Protein 12/09/21 12/09/21 12/09/21 00:16 04:20 04:20 WBC 16.4 H RBC 2.91 L Hgb 8.7 L Hct 25.9 L MCHC RDW 15.9 H Lymph % (Auto) Henry % (Auto) Lymph # (Auto) Henry # (Auto) Seg Neutrophils % Lymphocytes % (Manual) Seg Neutrophils # Lymphocytes # (Manual) PT INR D-Dimer ABG pH ABG pO2 ABG HCO3 ABG O2 Saturation ABG Base Excess ABG Hemoglobin VBG pH Oxyhemoglobin Sodium Potassium Chloride Carbon Dioxide BUN 58 H Creatinine 4.5 H Glucose 235 H POC Glucose 243 H Lactic Acid Calcium Phosphorus 2.40 L D Magnesium AST ALT Lactate Dehydrogenase Total Creatine Kinase CK-MB (CK-2) CK-MB (CK-2) Rel Index Troponin T C-Reactive Protein NT-Pro-B Natriuret Pep Triglycerides HDL Cholesterol Urine WBC (Auto) Urine Creatinine Urine Total Protein 12/09/21 12/09/21 12/09/21 05:19 08:45 11:47 WBC RBC Hgb Hct MCHC RDW Lymph % (Auto) Henry % (Auto) Lymph # (Auto) Henry # (Auto) Seg Neutrophils % Lymphocytes % (Manual) Seg Neutrophils # Lymphocytes # (Manual) PT INR D-Dimer ABG pH 7.511 H ABG pO2 74.1 L ABG HCO3 ABG O2 Saturation ABG Base Excess ABG Hemoglobin 6.4 L VBG pH Oxyhemoglobin Sodium Potassium Chloride Carbon Dioxide BUN Creatinine Glucose POC Glucose 217 H 195 H Lactic Acid Calcium Phosphorus Magnesium AST ALT Lactate Dehydrogenase Total Creatine Kinase CK-MB (CK-2) CK-MB (CK-2) Rel Index Troponin T C-Reactive Protein NT-Pro-B Natriuret Pep Triglycerides HDL Cholesterol Urine WBC (Auto) Urine Creatinine Urine Total Protein 12/09/21 12/09/21 12/09/21 16:58 21:29 23:16 WBC RBC Hgb Hct MCHC RDW Lymph % (Auto) Henry % (Auto) Lymph # (Auto) Henry # (Auto) Seg Neutrophils % Lymphocytes % (Manual) Seg Neutrophils # Lymphocytes # (Manual) PT INR D-Dimer ABG pH ABG pO2 ABG HCO3 ABG O2 Saturation ABG Base Excess ABG Hemoglobin VBG pH Oxyhemoglobin Sodium Potassium Chloride Carbon Dioxide BUN Creatinine Glucose POC Glucose 168 H 224 H 215 H Lactic Acid Calcium Phosphorus Magnesium AST ALT Lactate Dehydrogenase Total Creatine Kinase CK-MB (CK-2) CK-MB (CK-2) Rel Index Troponin T C-Reactive Protein NT-Pro-B Natriuret Pep Triglycerides HDL Cholesterol Urine WBC (Auto) Urine Creatinine Urine Total Protein 12/10/21 12/10/21 12/10/21 04:30 04:30 05:11 WBC 18.2 H RBC 2.72 L Hgb 7.9 L Hct 24.4 L MCHC RDW 16.0 H Lymph % (Auto) Henry % (Auto) Lymph # (Auto) Henry # (Auto) Seg Neutrophils % Lymphocytes % (Manual) Seg Neutrophils # Lymphocytes # (Manual) PT INR D-Dimer ABG pH ABG pO2 ABG HCO3 ABG O2 Saturation ABG Base Excess ABG Hemoglobin VBG pH Oxyhemoglobin Sodium Potassium Chloride Carbon Dioxide 15 L D BUN 96 H Creatinine 6.1 H Glucose 215 H POC Glucose 183 H Lactic Acid Calcium 8.2 L Phosphorus 6.70 H D Magnesium AST ALT Lactate Dehydrogenase Total Creatine Kinase CK-MB (CK-2) CK-MB (CK-2) Rel Index Troponin T C-Reactive Protein NT-Pro-B Natriuret Pep Triglycerides HDL Cholesterol Urine WBC (Auto) Urine Creatinine Urine Total Protein 12/10/21 12/10/21 12/10/21 10:52 14:29 15:49 WBC RBC Hgb Hct MCHC RDW Lymph % (Auto) Henry % (Auto) Lymph # (Auto) Henry # (Auto) Seg Neutrophils % Lymphocytes % (Manual) Seg Neutrophils # Lymphocytes # (Manual) PT INR D-Dimer ABG pH ABG pO2 ABG HCO3 ABG O2 Saturation ABG Base Excess ABG Hemoglobin VBG pH Oxyhemoglobin Sodium Potassium Chloride Carbon Dioxide BUN Creatinine Glucose POC Glucose 179 H 222 H Lactic Acid 3.90 H* Calcium Phosphorus Magnesium AST ALT Lactate Dehydrogenase Total Creatine Kinase CK-MB (CK-2) CK-MB (CK-2) Rel Index Troponin T C-Reactive Protein NT-Pro-B Natriuret Pep Triglycerides HDL Cholesterol Urine WBC (Auto) Urine Creatinine Urine Total Protein 12/10/21 12/10/21 12/11/21 21:02 23:06 04:33 WBC 16.7 H RBC 2.59 L Hgb 7.3 L Hct 23.3 L MCHC RDW 16.2 H Lymph % (Auto) Henry % (Auto) Lymph # (Auto) Henry # (Auto) Seg Neutrophils % Lymphocytes % (Manual) Seg Neutrophils # Lymphocytes # (Manual) PT INR D-Dimer ABG pH ABG pO2 ABG HCO3 ABG O2 Saturation ABG Base Excess ABG Hemoglobin VBG pH Oxyhemoglobin Sodium Potassium Chloride Carbon Dioxide BUN Creatinine Glucose POC Glucose 238 H 241 H Lactic Acid Calcium Phosphorus Magnesium AST ALT Lactate Dehydrogenase Total Creatine Kinase CK-MB (CK-2) CK-MB (CK-2) Rel Index Troponin T C-Reactive Protein NT-Pro-B Natriuret Pep Triglycerides HDL Cholesterol Urine WBC (Auto) Urine Creatinine Urine Total Protein 12/11/21 12/11/21 04:33 05:05 WBC RBC Hgb Hct MCHC RDW Lymph % (Auto) Henry % (Auto) Lymph # (Auto) Henry # (Auto) Seg Neutrophils % Lymphocytes % (Manual) Seg Neutrophils # Lymphocytes # (Manual) PT INR D-Dimer ABG pH ABG pO2 ABG HCO3 ABG O2 Saturation ABG Base Excess ABG Hemoglobin VBG pH Oxyhemoglobin Sodium Potassium Chloride 97.5 L Carbon Dioxide 13 L BUN 76 H Creatinine 5.4 H Glucose 182 H POC Glucose 157 H Lactic Acid Calcium 7.6 L Phosphorus 6.00 H Magnesium AST ALT Lactate Dehydrogenase Total Creatine Kinase CK-MB (CK-2) CK-MB (CK-2) Rel Index Troponin T C-Reactive Protein NT-Pro-B Natriuret Pep Triglycerides HDL Cholesterol Urine WBC (Auto) Urine Creatinine Urine Total Protein Assessment and Plan Assessment and Plan Assessment and plan: This is a 86-year-old female with HTN, DM, PVD, paroxysmal A. fib right AKA initially admitted to the floor for sepsis, RAYNE, pneumonia who required a code met on 12/02 due to acute hypoxic respiratory failure requiring intubation and ventilatory support and transferred to ICU Assessment and plan # Acute encephalopathy -mostly multifactorial in part related to underlying infection, renal failure and or possible medications -stop seroquel -Ct brain is note -stop sedation correct underlying infection -correct electrolytes abnormality and consider dialysis as per nephrology -EEG today -Consider MRI brain if possible -[id number],TSH # Elevated proBNP, NSTEMI, h/o HTN, PVD s/p right AKA, cardiomyopathy, paroxysmal atrial fibrillation not on AC [she is on ASA and Plavix] -Cardiology consulted, appreciate recommendations -Admit proBNP greater than 2000, troponin 2.0 -Blood pressure monitoring per protocol -Resume home Plavix, Pletal, metoprolol -Echocardiogram shows ejection fraction of 30 to 35% with severely dilated cardiomyopathy -No diuretic therapy due to RAYNE -vasopressor support with Levophed and vasopressin -map goal >65 # Acute hypoxic respiratory failure -Intubated on 12/02 with 7.50 ETT at 24 the lips -US chest shows 203 mL of fluid in pleural cavity # Acute kidney injury likely secondary to ATN requiring HD, hypochloremia -Nephrology consulted, appreciate recommendations -S/p Vas-Cath -Initiated hemodialysis on 12/06 -Currently on MWF schedule and as needed per nephrology -Renal ultrasound shows no significant normality # Severe sepsis, pneumonia, lactic acidosis -Secondary to pneumonia versus fluid overload with acute respiratory failure and acidosis -Admit CXR with bilateral pulmonary opacities -Infectious disease consulted, appreciate recommendation -Antibiotic therapy with cefepime, complete 5 days -cefepime restarted d/t increase in WBC -possible treatment for cdiff if leukocytosis worsens -COVID-19 PCR negative # DM type II -Avoid hypoglycemia -SSI -Long-acting insulin, titrate as needed -Accu-Cheks q. 6 # Leukocytosis, anemia -Trend CBC -Epogen per nephrology -Transfuse hemoglobin less than 7 -Monitor for signs of bleeding -SCDs to BLE while in bed PLAN 1- EEG today 2- stop seroquel and consider stop sedation 3- dialysis 4- treat underlying infection 5-Brain MRI if possible[had coil right ICA distal ] 6- B12,TSH The high probability of a clinically significant, sudden or life threatening deterioration of the [multi] system(s) required my full and direct attention, intervention and personal management. The aggregate critical care time was [60] minutes. This time is in addition to time spent performing reported procedures but includes the following: [x] Data Review and interpretation [x] Patient assessment and monitoring of vital signs [x] Documentation [x] Medication orders and management Disposition Plan: icu Total Time Spent with Patient (Minutes): 45
--- NOTE | 2021-12-11 10:24 | Electrocardiograph Report ---
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 Repol abnrm suggests ischemia, diffuse leads ST depression V1-V3, suggest recording posterior leads Compared to ECG 12/07/2021 07:01:30 ST (T wave) deviation now present Possible ischemia still present Electronically Signed On 12-11-2021 10:23:38 EST by Marcelo Matson
--- NOTE | 2021-12-11 11:03 | Progress Note ---
Assessment and Plan Cultures: 12/02/2021 blood culture: no growth COVID-19 PCR: negative 12/02/2021 sputum culture: Usual respiratory mahesh 12/02/2021 urine culture: no growth 12/11/2021 sputum culture: In process A/P: 86-year-old female with hypertension, diabetes, peripheral vascular disease, prior right AKA was admitted with shortness of breath: #Severe sepsis, secondary to pneumonia v/s fluid overload, acute respiratory failure: remains on the vent. #Severe metabolic acidosis, lactic acidosis #Acute renal failure: Renally adjust antibiotics. Nephrology on board for HD. #Acute encephalopathy: ? metabolic. Neurology consulted Recs: -continue IV cefepime, renally adjusted -overall poor prognosis, consider goals of care discussions Elizabeth Lane MD, [facility] O: [phone] F: [phone] C: [phone] Subjective Date of service: 12/11/21 Principal diagnosis: AHRF; Pulm Edema;Pneumonia; Sepsis; Met. acidosis; Acute Kidney Injury; HTN Interval history: Afebrile. Remains on the vent. Still on pressors. Discussed with RN, no skin issues. Had some diarrhea on Wednesday which is slowing down. Objective - Exam Narrative Exam: Physical Exam: Constitutional: sedated, intubated, on the vent Head, Ears, Nose: Normocephalic, atraumatic. External ears, nose normal Eyes: Conjunctivae/corneas clear. No icterus. No ptosis. Neck: intubated Oral: intubated Cardiovascular: S1, S2 + Respiratory: AE fair bilaterally and equal GI: Soft, bowel sounds + Musculoskeletal: No pedal edema, no cyanosis. R AKA well healed Skin: No rash or abscess Hem/Lymphatic: No palpable cervical or supraclavicular nodes. No lymphangitis Psych: no agitation Neurological: sedated, intubated, on the vent, exam limited - Constitutional Vitals: Vital Signs Temp Pulse Resp BP Pulse Ox 99.2 F 90 23 103/46 97 12/11/21 07:13 12/11/21 10:05 12/11/21 07:29 12/11/21 10:05 12/11/21 10:05 Temperature -Last 24 Hours Temperature 99.2 F Temperature 97.4 F Temperature 98.2 F Temperature 98.1 F Temperature 98.9 F Temperature 99 F Temperature 98.9 F - Labs CBC & Chem 7: 12/11/21 04:33 12/11/21 04:33 Labs: Abnormal lab results 12/10/21 12/10/21 12/10/21 Range/Units 14:29 15:49 21:02 WBC (4.5-11.0) K/mm3 RBC (3.65-5.03) M/mm3 Hgb (10.1-14.3) gm/dl Hct (30.3-42.9) % RDW (13.2-15.2) % Chloride (98-107) mmol/L Carbon Dioxide (22-30) mmol/L BUN (7-17) mg/dL Creatinine (0.6-1.2) mg/dL Glucose (65-100) mg/dL POC Glucose 222 H 238 H (70-105) mg/dL Lactic Acid 3.90 H* (0.7-2.0) mmol/L Calcium (8.4-10.2) mg/dL Phosphorus (2.5-4.5) mg/dL 12/10/21 12/11/21 12/11/21 Range/Units 23:06 04:33 04:33 WBC 16.7 H (4.5-11.0) K/mm3 RBC 2.59 L (3.65-5.03) M/mm3 Hgb 7.3 L (10.1-14.3) gm/dl Hct 23.3 L (30.3-42.9) % RDW 16.2 H (13.2-15.2) % Chloride 97.5 L (98-107) mmol/L Carbon Dioxide 13 L (22-30) mmol/L BUN 76 H (7-17) mg/dL Creatinine 5.4 H (0.6-1.2) mg/dL Glucose 182 H (65-100) mg/dL POC Glucose 241 H (70-105) mg/dL Lactic Acid (0.7-2.0) mmol/L Calcium 7.6 L (8.4-10.2) mg/dL Phosphorus 6.00 H (2.5-4.5) mg/dL 12/11/21 Range/Units 05:05 WBC (4.5-11.0) K/mm3 RBC (3.65-5.03) M/mm3 Hgb (10.1-14.3) gm/dl Hct (30.3-42.9) % RDW (13.2-15.2) % Chloride (98-107) mmol/L Carbon Dioxide (22-30) mmol/L BUN (7-17) mg/dL Creatinine (0.6-1.2) mg/dL Glucose (65-100) mg/dL POC Glucose 157 H (70-105) mg/dL Lactic Acid (0.7-2.0) mmol/L Calcium (8.4-10.2) mg/dL Phosphorus (2.5-4.5) mg/dL
--- NOTE | 2021-12-11 11:05 | Progress Note ---
Assessment and Plan - Patient Problems (1) Non-ST elevation myocardial infarction (NSTEMI) Current Visit: Yes Status: Acute Plan to address problem: Patient presented to the hospital with acute pulmonary edema and ECG evidence of ST depression of acute inferior lateral ischemia. Hospital course complicated by the further development of a right upper lobe pneumonia, respiratory failure, currently on the ventilator. Due to the patient's advanced age, frailty, multiple comorbidities, including advanced dementia and end-stage renal failure, she is not a candidate for aggressive and invasive cardiac evaluation and therapies. We will continue supportive management with medical therapy for coronary artery disease and heart failure as tolerated. Echocardiogram shows a severe dilated cardiomyopathy, ejection fraction 30 to 35%. Subjective Date of service: 12/11/21 Principal diagnosis: AHRF; Pulm Edema;Pneumonia; Sepsis; Met. acidosis; Acute Kidney Injury; HTN Interval history: Patient is on the vent, unresponsive. On satellite project site monitor sinus with frequent ectopy. Objective Vital Signs Temp Pulse Pulse Resp BP Pulse Ox Pulse Ox 12/11/21 10:05 90 103/46 97 12/11/21 10:00 85 96/44 97 12/11/21 09:30 88 89/42 98 12/11/21 09:12 90 103/46 12/11/21 09:00 90 103/46 97 12/11/21 08:30 93 H 107/47 95 12/11/21 08:00 98 H 112/50 97 12/11/21 07:30 102 H 115/50 97 12/11/21 07:29 103 H 105 H 23 97 12/11/21 07:13 99.2 F 12/11/21 07:00 96 H 120/53 12/11/21 06:30 101 H 114/48 99 12/11/21 06:00 92 H 113/51 96 12/11/21 05:30 90 114/47 96 12/11/21 05:00 94 H 108/45 98 12/11/21 04:30 88 114/51 97 12/11/21 04:27 87 114/51 97 12/11/21 04:00 97.4 F L 88 90 23 104/45 95 12/11/21 03:30 83 84/44 96 12/11/21 03:00 83 94/43 97 12/11/21 02:30 85 98/42 93 12/11/21 02:00 86 96/45 93 0224/22 01:30 88 98/42 90 0224/22 01:00 96 H 123/49 93 0224/22 00:30 87 125/53 97 0224/22 00:01 90 106/50 97 0224/22 00:00 98.2 F 89 92 H 22 117/45 97 0223/22 23:37 88 97/43 97 0223/22 23:34 90 97/43 98 0223/22 23:30 89 97/46 97 0223/22 23:00 89 96/46 97 0223/22 22:30 85 88/39 97 0223/22 22:00 89 106/43 97 0223/22 21:30 90 118/49 98 0223/22 21:00 90 106/49 97 0223/22 20:30 93 H 107/50 97 02/22 20:00 98.1 F 90 90 19 105/50 98 0222 19:30 92 H 108/48 96 02/22 19:00 91 H 107/46 99 0223/22 18:30 86 97/45 98 0223/22 18:00 86 93/47 97 02/22 17:30 89 99/47 98 0223/22 17:00 88 91/47 02/22 16:30 88 94/43 02/22 16:25 98.9 F 12/10/22 16:00 89 85 24 93/42 97 02/22 15:36 100 H 112/54 98 0223/22 15:08 102 H 107/53 98 0223/22 15:00 104 H 107/53 02/22 14:30 101 H 95/44 96 0223/22 14:00 105 H 110/43 95 0223/22 13:30 112 H 118/53 96 0223/22 13:00 115 H 116/52 96 0223/22 12:36 99 F 100 H 22 125/49 98 02/22 12:34 107 H 93/47 98 0223/22 12:30 105 H 114/47 97 0223/22 12:00 111 H 112 H 24 93/47 98 0223/22 11:52 131 H 93/47 12/10/21 11:45 99 H 109/49 12/10/21 11:39 98.9 F 12/10/21 11:30 109 H 106/46 96 12/10/21 11:15 88 104/43 12/10/21 11:08 98 H 95/47 - Physical Examination General: Cachectic, Other (Unresponsive, intubated, on the vent) HEENT: Positive: Other (Pupils nonreactive) Neck: Positive: neck supple Cardiac: Positive: Irregularly Regular Lungs: Positive: Decreased Breath Sounds Neuro: Positive: Other (Unresponsive, intubated on the vent) Abdomen: Positive: Soft Skin: Positive: Clear Extremities: Absent: edema - Labs and Meds CBC 12/11/21 Range/Units 04:33 WBC 16.7 H (4.5-11.0) K/mm3 RBC 2.59 L (3.65-5.03) M/mm3 Hgb 7.3 L (10.1-14.3) gm/dl Hct 23.3 L (30.3-42.9) % Plt Count 234 (140-440) K/mm3 Comprehensive Metabolic Panel 12/11/21 Range/Units 04:33 Sodium 140 (137-145) mmol/L Potassium 4.2 (3.6-5.0) mmol/L Chloride 97.5 L (98-107) mmol/L Carbon Dioxide 13 L (22-30) mmol/L BUN 76 H (7-17) mg/dL Creatinine 5.4 H (0.6-1.2) mg/dL Glucose 182 H (65-100) mg/dL Calcium 7.6 L (8.4-10.2) mg/dL - Allied health notes Allied health notes reviewed: nursing
--- NOTE | 2021-12-11 13:26 | Progress Note ---
Assessment and Plan Impression: * Oligoanuric acute kidney injury secondary to ATN --HD initiation on Dec 06 * Metabolic acidosis, severe * Lactic acidosis * Acute hypoxic respiratory failure * Sepsis - ?bilateral PNA * NSTEMI Plan: * Plan for HD to continue MWF schedule or prn as tolerated, however HD 12/10 stopped due to hemodynamic instability * Remains on two pressors this AM with soft BP, tachycardia- unstable for HD today * UF as tolerated * Monitor for evidence of renal recovery- no sign of recovery with minimal urine output, uptrending creatinine off HD, acidosis * Vent management per pulmonary * Cardiology recommendations reviewed * Abx per primary team/ID * Dose medications for renal * Avoid potential nephrotoxins * Strict I/O * Agree with goals of care discussions- neurology input appreciated Subjective Date of service: 12/11/21 Principal diagnosis: AHRF; Pulm Edema;Pneumonia; Sepsis; Met. acidosis; Acute Kidney Injury; HTN Interval history: No acute events. Patient remains intubated - TV 400, FiO2 40%, PEEP 6 Remains with minimal urine output Attempted HD yesterday- only able to run about 1 hour due to hemodynamic instability even with UF adjustments, decreased BFR, etc Objective - Exam Narrative Exam: General appearance: well-developed, well-nourished, intubated EENT: ATNC, other (ETT in place) Respiratory: Present: Other (coarse BS) Cardiology: regular, S1S2 Gastrointestinal: hypoactive bowel sounds, no distended Integumentary: no rash, warm and dry Neurologic: other (sedated) Skin: intact - Vital Signs Vital signs: Vital Signs - 12hr 12/11/21 12/11/21 12/11/21 01:30 02:00 02:30 Temperature Pulse Rate 88 86 85 Pulse Rate [ From Monitor] Respiratory Rate Blood Pressure 98/42 96/45 98/42 O2 Sat by Pulse 90 93 93 Oximetry 12/11/21 12/11/21 12/11/21 03:00 03:30 04:00 Temperature 97.4 F L Pulse Rate 83 83 88 Pulse Rate [ 90 From Monitor] Respiratory 23 Rate Blood Pressure 94/43 84/44 104/45 O2 Sat by Pulse 97 96 95 Oximetry 12/11/21 12/11/21 12/11/21 04:27 04:30 05:00 Temperature Pulse Rate 87 88 94 H Pulse Rate [ From Monitor] Respiratory Rate Blood Pressure 114/51 114/51 108/45 O2 Sat by Pulse 97 97 98 Oximetry 12/11/21 12/11/21 12/11/21 05:30 06:00 06:30 Temperature Pulse Rate 90 92 H 101 H Pulse Rate [ From Monitor] Respiratory Rate Blood Pressure 114/47 113/51 114/48 O2 Sat by Pulse 96 96 99 Oximetry 12/11/21 12/11/21 12/11/21 07:00 07:13 07:29 Temperature 99.2 F Pulse Rate 96 H 103 H Pulse Rate [ 105 H From Monitor] Respiratory 23 Rate Blood Pressure 120/53 O2 Sat by Pulse 97 Oximetry 12/11/21 12/11/21 12/11/21 07:30 08:00 08:30 Temperature Pulse Rate 102 H 98 H 93 H Pulse Rate [ From Monitor] Respiratory Rate Blood Pressure 115/50 112/50 107/47 O2 Sat by Pulse 97 97 95 Oximetry 12/11/21 12/11/21 12/11/21 09:00 09:12 09:30 Temperature Pulse Rate 90 90 88 Pulse Rate [ From Monitor] Respiratory Rate Blood Pressure 103/46 103/46 89/42 O2 Sat by Pulse 97 98 Oximetry 12/11/21 12/11/21 12/11/21 10:00 10:05 10:30 Temperature Pulse Rate 85 90 85 Pulse Rate [ From Monitor] Respiratory Rate Blood Pressure 96/44 103/46 95/41 O2 Sat by Pulse 97 97 Oximetry 12/11/21 12/11/21 12/11/21 11:00 11:30 11:31 Temperature 98.4 F Pulse Rate 80 84 Pulse Rate [ From Monitor] Respiratory Rate Blood Pressure 99/42 95/41 O2 Sat by Pulse 98 Oximetry 12/11/21 12/11/21 12/11/21 12:00 12:09 12:10 Temperature Pulse Rate 87 85 Pulse Rate [ 85 From Monitor] Respiratory 19 Rate Blood Pressure 104/43 O2 Sat by Pulse 97 Oximetry 12/11/21 12/11/21 12:30 13:00 Temperature Pulse Rate 92 H 93 H Pulse Rate [ From Monitor] Respiratory Rate Blood Pressure 105/45 115/45 O2 Sat by Pulse 98 Oximetry - Lab 12/11/21 04:33 12/11/21 04:33 Most recent lab results ABG pH 7.511 pH Units (7.350-7.450) H 12/09/21 08:45 ABG pCO2 30.5 mm Hg 12/09/21 08:45 ABG pO2 74.1 mm Hg (80.0-90.0) L 12/09/21 08:45 ABG HCO3 23.9 mmol/L (20.0-26.0) 12/09/21 08:45 ABG O2 Saturation 97.0 % (95.0-99.0) 12/09/21 08:45 Calcium 7.6 mg/dL (8.4-10.2) L 12/11/21 04:33 Phosphorus 6.00 mg/dL (2.5-4.5) H 12/11/21 04:33 Magnesium 2.20 mg/dL (1.7-2.3) 12/09/21 04:20 Urine Creatinine 24.4 mg/dL (0.1-20.0) H 12/02/21 00:52 Urine Sodium 109 mmol/L 12/02/21 00:52 Urine Total Protein 111 mg/dL (5-11.8) H 12/02/21 00:52 Medications & Allergies - Medications Allergies/Adverse Reactions: Allergies No Known Allergies Allergy (Verified 12/09/21 09:39) Home Medications: Home Medications Medication Instructions Recorded Confirmed Last Taken Type Gabapentin 300 mg PO BID 04/05/19 04/06/19 Unknown History Metoprolol [Lopressor TAB] 25 mg PO QDAY 04/05/19 04/06/19 Unknown History Simvastatin 40 mg PO QHS 04/05/19 04/06/19 Unknown History Vitamin D2 50,000 units PO QWEEK 04/05/19 04/06/19 Unknown History amLODIPine 10 mg PO DAILY 04/05/19 04/05/19 Unknown History metFORMIN [Glucophage] 500 mg PO QHS 04/05/19 04/06/19 Unknown History raNITIdine HCl [Zantac] 300 mg PO QDAY 04/05/19 04/06/19 Unknown History Aspirin [Aspirin BABY CHEW TAB] 81 mg PO QDAY #30 tab.chew 04/12/19 Unknown Rx Clopidogrel [Plavix] 75 mg PO QDAY #30 tablet 04/12/19 Unknown Rx cilostazoL [Pletal] 50 mg PO BID #30 tablet 04/12/19 Unknown Rx oxyCODONE /ACETAMINOPHEN [Percocet 2 tab PO Q6H PRN #20 tablet 04/12/19 Unknown Rx 5/325 mg] Active Medications: Generic Name Dose Route Start Last Admin Trade Name Freq PRN Reason Stop Dose Admin Acetaminophen 650 mg 12/02/21 04:37 12/07/21 04:58 Acetaminophen 325 Mg Tab PO 650 mg Q4H PRN Administration Pain MILD(1-3)/Fever >100.5/HYLTON Aspirin 81 mg 12/03/21 10:00 12/11/21 09:10 Aspirin 81 Mg Tab Chew PO 81 mg QDAY KHARI Administration Cilostazol 50 mg 12/02/21 22:00 12/11/21 09:10 Cilostazol 100 Mg Tab PO 50 mg BID KHARI Administration Clopidogrel Bisulfate 75 mg 12/03/21 10:00 12/11/21 09:10 Clopidogrel 75 Mg Tab PO 75 mg QDAY KHARI Administration Dextrose 0 ml 12/02/21 05:10 Dextrose 10% *Hypoglycemia IV PRN PRN Hypoglycemia Protocol Epoetin Lenny-epbx 10,000 unit 12/05/21 10:00 12/08/21 13:00 Epoetin Lenny-Epbx 10,000 Unit/1 Ml Vial IV 10,000 unit ED PRN Administration hemodialysis Famotidine 10 mg 12/04/21 22:00 12/11/21 09:10 Famotidine 10 Mg Tab PO 10 mg BID KHARI Administration Fentanyl 50 mcg 12/09/21 13:35 Fentanyl 100 Mcg/2 Ml Inj IV Q10MIN PRN ANALGESIA Heparin Sodium (Porcine) 5,000 unit 12/02/21 06:00 12/11/21 05:20 Heparin 5,000 Unit/1 Ml Vial SUB-Q 5,000 unit Q8HR KHARI Administration Hydrophilic Ointment 1 applic 12/02/21 17:32 Lip Therapy Vaseline TP Q2HR PRN Dry Lips Sodium Chloride 100 mls @ 999 mls/hr 12/07/21 15:36 Nacl 0.9% IV ED PRN Hypotension Fentanyl Citrate 2,000 mcg in 100 mls @ 3.25 mls/hr 12/09/21 14:00 12/11/21 09:12 Fentanyl Drip Premix IV 1 mcg/kg/hr TITR KHARI 3.25 mls/hr Titration Protocol 1 MCG/KG/HR Vasopressin 20 unit/ Sodium 101 mls @ 9.09 mls/hr 12/09/21 14:00 12/11/21 05:15 Chloride IV 0.03 units/min TITR KHARI 9.09 mls/hr Administration Protocol 0.03 UNITS/MIN NORepinephrine/NS 8 MG-250 ML 8 mg in 250 mls @ 3.75 mls/hr 12/09/21 14:00 12/11/21 11:41 Norepinephrine/Ns 8 Mg-250 Ml (Double Conc) IV 4 mcg/min TITRATE KHARI 7.5 mls/hr Titration Protocol 2 MCG/MIN Cefepime HCl 1 gm in 100 mls @ 200 mls/hr 12/10/21 18:00 12/10/21 17:52 Cefepime/Ns 1 Gm/100 Ml IV 200 mls/hr QPM [facility] Administration Protocol Insulin Glargine 25 units 12/09/21 22:00 12/10/21 21:16 Insulin Glargine 100 Units/Ml SUB-Q 25 units QHS [facility] Administration Insulin Human Lispro 0 unit 12/03/21 00:00 12/11/21 11:29 Insulin Lispro 100 Unit/Ml SUB-Q 3 unit Q6HR [facility] Administration Protocol Levalbuterol HCl 0.63 mg 12/02/21 10:00 Levalbuterol 0.63 Mg/3 Ml Nebu IH Q8HRT PRN Shortness Of Breath Magnesium Hydroxide 30 ml 12/02/21 04:37 Magnesium Hydroxide (Mom) Oral Liqd Udc PO Q4H PRN Constipation Metoprolol Tartrate 25 mg 12/02/21 15:00 12/11/21 09:12 Metoprolol Tartrate 25 Mg Tab PO Not Given QDAY [facility] Metoprolol Tartrate 2.5 mg 12/06/21 11:11 12/07/21 17:48 Metoprolol Tartrate 5 Mg/5 Ml Inj IV 2.5 mg Q6HR PRN Administration Tachycardia Multi-Ingred Cream/Lotion/Oil/Oint 1 applic 12/02/21 17:32 Mineral Oil/Petrolatum, White Ophth Oint 3.5 Gm OU Q4HR PRN Dry Eye(s) Ondansetron HCl 4 mg 12/02/21 04:37 Ondansetron 4 Mg/2 Ml Inj IV Q8H PRN Nausea And Vomiting Pravastatin Sodium 80 mg 12/02/21 22:00 12/10/21 21:17 Pravastatin 80 Mg Tab PO 80 mg QHS KHARI Administration Senna/Docusate Sodium 1 tab 12/02/21 22:00 12/11/21 09:10 Sennosides/Docusate Sodium 8.6/50 Mg Tab FEEDTUBE 1 tab BID KHARI Administration Sodium Chloride 10 ml 12/02/21 10:00 12/11/21 09:10 Sodium Chloride 0.9% 10 Ml Flush Syringe IV 10 ml BID KHARI Administration Sodium Chloride 10 ml 12/02/21 04:37 Sodium Chloride 0.9% 10 Ml Flush Syringe IV PRN PRN LINE FLUSH
--- NOTE | 2021-12-11 13:32 | Progress Note ---
Assessment and Plan Acute Hypoxemic Respiratory Failure s/p MVS Pulmonary Edema Vs Pneumonia Severe Sepsis Pneumonia Leukocytosis-improved Lactic Acidosis/Metabolic acidosis Acute Kidney Injury([facility]NE) Hypokalemia Acute Metabolic Acidosis Hypertension Elevated BNP Elevated troponin Elevated D-dimer DM II - CT brain negative - begin Midodrine for BP support - neurology consultation - LTAC evaluation - US chest without significant effusion - continue care as below otherwise; - continue HD/UF for toxin and volume clearance - continue daily SAT and SBT assessment as tolerated - continue to wean supplemental oxygen for target O2 sat's > 90% acutely - VAP bundle addressed - continue lung protective strategies - continue bronchodilators with pulmonary hygiene per RT - wean per pulmonary driven protocols otherwise - avoid nephrotoxins, renally dose all medications - continue accuchecks with glycemic control per SSI (While critically ill target blood glucose of 140-180 mg/dL; avoid hypoglycemia) - sedation prn for target RASS 0 to -1 - continue to avoid benzodiazepine's, reduce the possibility of delirium - AB's per ID rec's (Cefepime) - prn analgesia per CPOT score - Maintenance of sleep-wake cycle, avoid delirium - continue enteral nutritional support at goal rate as tolerated - G.I. & VTE prophylaxis - PT/OT/ROM exercises - continue mobility protocols for pressure ulcer prophylaxis - Monitor hemodynamics closely - continue other care per attending / other consultants - discharge planning ongoing concurrently COVID SPECIFIC INTERVENTIONS - COVID-19 PCR negative .... Re-evaluate in am & prn CONDITION: CRITICAL PROGNOSIS: GUARDED CODE STATUS: FULL CODE The high probability of a clinically significant, sudden or life-threatening deterioration of the [respiratory, cardiovascular, renal & neurologic] system(s) required my full and direct attention, intervention and personal management. The aggregate critical care time was [32] minutes without overlap. Time includes spent on; [x] Data Review and interpretation [x] Patient assessment and monitoring of vital signs [x] Documentation [x] Medication orders and management Subjective Date of service: 12/11/21 Principal diagnosis: AHRF; Pulm Edema;Pneumonia; Sepsis; Met. acidosis; Acute Kidney Injury; HTN Interval history: Patient is seen today for: Acute Hypoxemic Respiratory Failure on MVS; Pulm Edema Vs Pneumonia; Severe Sepsis; Metabolic acidosis; Acute Kidney Injury; HTN; DM II Seen and examined at bedside; 24hour events reviewed; nursing and respiratory care staff consulted; no adverse overnight events reported to me; resting peacefully in bed; AMS is persistent; BP's better but remains on Levophed @ 6 nghia's/min Objective Vital Signs - 12hr 12/11/21 12/11/21 12/11/21 02:00 02:30 03:00 Temperature Pulse Rate 86 85 83 Pulse Rate [ From Monitor] Respiratory Rate Blood Pressure 96/45 98/42 94/43 O2 Sat by Pulse 93 93 97 Oximetry 12/11/21 12/11/21 12/11/21 03:30 04:00 04:27 Temperature 97.4 F L Pulse Rate 83 88 87 Pulse Rate [ 90 From Monitor] Respiratory 23 Rate Blood Pressure 84/44 104/45 114/51 O2 Sat by Pulse 96 95 97 Oximetry 12/11/21 12/11/21 12/11/21 04:30 05:00 05:30 Temperature Pulse Rate 88 94 H 90 Pulse Rate [ From Monitor] Respiratory Rate Blood Pressure 114/51 108/45 114/47 O2 Sat by Pulse 97 98 96 Oximetry 12/11/21 12/11/21 12/11/21 06:00 06:30 07:00 Temperature Pulse Rate 92 H 101 H 96 H Pulse Rate [ From Monitor] Respiratory Rate Blood Pressure 113/51 114/48 120/53 O2 Sat by Pulse 96 99 Oximetry 12/11/21 12/11/21 12/11/21 07:13 07:29 07:30 Temperature 99.2 F Pulse Rate 103 H 102 H Pulse Rate [ 105 H From Monitor] Respiratory 23 Rate Blood Pressure 115/50 O2 Sat by Pulse 97 97 Oximetry 12/11/21 12/11/21 12/11/21 08:00 08:30 09:00 Temperature Pulse Rate 98 H 93 H 90 Pulse Rate [ From Monitor] Respiratory Rate Blood Pressure 112/50 107/47 103/46 O2 Sat by Pulse 97 95 97 Oximetry 12/11/21 12/11/21 12/11/21 09:12 09:30 10:00 Temperature Pulse Rate 90 88 85 Pulse Rate [ From Monitor] Respiratory Rate Blood Pressure 103/46 89/42 96/44 O2 Sat by Pulse 98 97 Oximetry 12/11/21 12/11/21 12/11/21 10:05 10:30 11:00 Temperature Pulse Rate 90 85 80 Pulse Rate [ From Monitor] Respiratory Rate Blood Pressure 103/46 95/41 99/42 O2 Sat by Pulse 97 98 Oximetry 12/11/21 12/11/21 12/11/21 11:30 11:31 12:00 Temperature 98.4 F Pulse Rate 84 87 Pulse Rate [ From Monitor] Respiratory Rate Blood Pressure 95/41 104/43 O2 Sat by Pulse Oximetry 12/11/21 12/11/21 12/11/21 12:09 12:10 12:30 Temperature Pulse Rate 85 92 H Pulse Rate [ 85 From Monitor] Respiratory 19 Rate Blood Pressure 105/45 O2 Sat by Pulse 97 98 Oximetry 12/11/21 13:00 Temperature Pulse Rate 93 H Pulse Rate [ From Monitor] Respiratory Rate Blood Pressure 115/45 O2 Sat by Pulse Oximetry Constitutional: no acute distress, other (elderly lady with mild ventilator dyssynchrony at rest) Eyes: non-icteric ENT: oropharynx moist, other (ETT 23 cm CIARAN) Neck: supple, no lymphadenopathy, no JVD Effort: mildly labored Ascultation: Bilateral: rhonchi (bases) Percussion: Bilateral: not dull Cardiovascular: regular rate and rhythm Gastrointestinal: normoactive bowel sounds, soft, non-tender, non-distended Integumentary: rash Extremities: no cyanosis, pulses normal, no ischemia or petechiae Neurologic: pupils equal and round, unable to assess Psychiatric: other (unable to assess re: AMS) CBC and BMP: 12/12/21 05:15 12/12/21 08:23 ABG, PT/INR, D-dimer: ABG ABG pH 7.511 pH Units (7.350-7.450) H 12/09/21 08:45 ABG pCO2 30.5 mm Hg 12/09/21 08:45 ABG pO2 74.1 mm Hg (80.0-90.0) L 12/09/21 08:45 ABG O2 Saturation 97.0 % (95.0-99.0) 12/09/21 08:45 PT/INR, D-dimer PT 15.9 Sec. (12.2-14.9) H 12/02/21 01:24 INR 1.15 (0.87-1.13) H 12/02/21 01:24 D-Dimer 1461.68 ng/mlDDU (0-234) H 12/02/21 04:18 Abnormal lab findings: Abnormal Labs 12/02/21 12/02/21 12/02/21 00:52 00:52 01:24 WBC 15.4 H RBC Hgb Hct MCHC RDW 15.8 H Lymph % (Auto) 6.3 L [place] % (Auto) 11.7 H Lymph # (Auto) 1.0 L [place] # (Auto) 1.8 H Seg Neutrophils % 81.8 H Lymphocytes % (Manual) Seg Neutrophils # 12.6 H Lymphocytes # (Manual) PT INR D-Dimer ABG pH ABG pO2 ABG HCO3 ABG O2 Saturation ABG Base Excess ABG Hemoglobin VBG pH Oxyhemoglobin Sodium Potassium Chloride Carbon Dioxide BUN Creatinine Glucose POC Glucose Lactic Acid Calcium Phosphorus Magnesium AST ALT Lactate Dehydrogenase Total Creatine Kinase CK-MB (CK-2) CK-MB (CK-2) Rel Index Troponin T C-Reactive Protein NT-Pro-B Natriuret Pep Triglycerides HDL Cholesterol Urine WBC (Auto) 27.0 H Urine Creatinine 24.4 H Urine Total Protein 111 H 12/02/21 12/02/21 12/02/21 01:24 01:24 01:24 WBC RBC Hgb Hct MCHC RDW Lymph % (Auto) [place] % (Auto) Lymph # (Auto) [place] # (Auto) Seg Neutrophils % Lymphocytes % (Manual) Seg Neutrophils # Lymphocytes # (Manual) PT 15.9 H INR 1.15 H D-Dimer ABG pH ABG pO2 ABG HCO3 ABG O2 Saturation ABG Base Excess ABG Hemoglobin VBG pH Oxyhemoglobin Sodium Potassium 3.5 L Chloride Carbon Dioxide 4 L* BUN 43 H Creatinine 5.1 H Glucose 239 H POC Glucose Lactic Acid 15.70 H* Calcium Phosphorus Magnesium AST 86 H ALT 69 H Lactate Dehydrogenase Total Creatine Kinase 254 H CK-MB (CK-2) 20.2 H CK-MB (CK-2) Rel Index 7.9 H Troponin T C-Reactive Protein NT-Pro-B Natriuret Pep Triglycerides HDL Cholesterol Urine WBC (Auto) Urine Creatinine Urine Total Protein 12/02/21 12/02/21 12/02/21 01:24 01:24 04:18 WBC RBC Hgb Hct MCHC RDW Lymph % (Auto) [place] % (Auto) Lymph # (Auto) [place] # (Auto) Seg Neutrophils % Lymphocytes % (Manual) Seg Neutrophils # Lymphocytes # (Manual) PT INR D-Dimer 1461.68 H ABG pH ABG pO2 ABG HCO3 ABG O2 Saturation ABG Base Excess ABG Hemoglobin VBG pH 7.167 L* Oxyhemoglobin Sodium Potassium Chloride Carbon Dioxide BUN Creatinine Glucose POC Glucose Lactic Acid Calcium Phosphorus Magnesium AST ALT Lactate Dehydrogenase Total Creatine Kinase CK-MB (CK-2) CK-MB (CK-2) Rel Index Troponin T 2.600 H* C-Reactive Protein NT-Pro-B Natriuret Pep > 3500 H Triglycerides HDL Cholesterol 74 H Urine WBC (Auto) Urine Creatinine Urine Total Protein 12/02/21 12/02/21 12/02/21 04:18 04:18 10:47 WBC RBC Hgb Hct MCHC RDW Lymph % (Auto) [place] % (Auto) Lymph # (Auto) [place] # (Auto) Seg Neutrophils % Lymphocytes % (Manual) Seg Neutrophils # Lymphocytes # (Manual) PT INR D-Dimer ABG pH ABG pO2 ABG HCO3 ABG O2 Saturation ABG Base Excess ABG Hemoglobin VBG pH Oxyhemoglobin Sodium Potassium Chloride Carbon Dioxide 7 L* BUN 51 H Creatinine 5.9 H Glucose 255 H 224 H POC Glucose Lactic Acid 15.40 H* Calcium Phosphorus Magnesium AST ALT Lactate Dehydrogenase 958 H Total Creatine Kinase CK-MB (CK-2) CK-MB (CK-2) Rel Index Troponin T C-Reactive Protein 6.60 H NT-Pro-B Natriuret Pep Triglycerides HDL Cholesterol Urine WBC (Auto) Urine Creatinine Urine Total Protein 12/02/21 12/02/21 12/02/21 10:53 13:51 13:51 WBC RBC Hgb Hct MCHC RDW Lymph % (Auto) [place] % (Auto) Lymph # (Auto) [place] # (Auto) Seg Neutrophils % Lymphocytes % (Manual) Seg Neutrophils # Lymphocytes # (Manual) PT INR D-Dimer ABG pH ABG pO2 ABG HCO3 ABG O2 Saturation ABG Base Excess ABG Hemoglobin VBG pH Oxyhemoglobin Sodium Potassium Chloride Carbon Dioxide BUN Creatinine Glucose POC Glucose 194 H Lactic Acid 11.70 H* Calcium Phosphorus Magnesium AST ALT Lactate Dehydrogenase Total Creatine Kinase CK-MB (CK-2) CK-MB (CK-2) Rel Index Troponin T 2.500 H* C-Reactive Protein NT-Pro-B Natriuret Pep Triglycerides HDL Cholesterol Urine WBC (Auto) Urine Creatinine Urine Total Protein 12/02/21 12/02/2112/02/22 20:31 22:56 22:56 WBC RBC Hgb Hct MCHC RDW Lymph % (Auto) [place] % (Auto) Lymph # (Auto) [place] # (Auto) Seg Neutrophils % Lymphocytes % (Manual) Seg Neutrophils # Lymphocytes # (Manual) PT INR D-Dimer ABG pH ABG pO2 156.2 H ABG HCO3 15.4 L ABG O2 Saturation ABG Base Excess -8.7 L ABG Hemoglobin VBG pH Oxyhemoglobin Sodium 147 H Potassium 3.4 L Chloride Carbon Dioxide 18 L D BUN 59 H Creatinine 6.2 H Glucose 150 H POC Glucose Lactic Acid 6.10 H* Calcium 8.3 L Phosphorus Magnesium AST ALT Lactate Dehydrogenase Total Creatine Kinase CK-MB (CK-2) CK-MB (CK-2) Rel Index Troponin T C-Reactive Protein NT-Pro-B Natriuret Pep Triglycerides HDL Cholesterol Urine WBC (Auto) Urine Creatinine Urine Total Protein 12/03/21 12/03/21 12/03/21 00:25 00:42 04:00 WBC RBC Hgb Hct MCHC RDW 15.4 H Lymph % (Auto) [place] % (Auto) Lymph # (Auto) [place] # (Auto) Seg Neutrophils % Lymphocytes % (Manual) 7.0 L Seg Neutrophils # Lymphocytes # (Manual) 0.4 L PT INR D-Dimer ABG pH ABG pO2 ABG HCO3 ABG O2 Saturation ABG Base Excess ABG Hemoglobin VBG pH Oxyhemoglobin Sodium Potassium Chloride Carbon Dioxide BUN Creatinine Glucose POC Glucose 150 H Lactic Acid 5.80 H* Calcium Phosphorus Magnesium AST ALT Lactate Dehydrogenase Total Creatine Kinase CK-MB (CK-2) CK-MB (CK-2) Rel Index Troponin T C-Reactive Protein NT-Pro-B Natriuret Pep Triglycerides HDL Cholesterol Urine WBC (Auto) Urine Creatinine Urine Total Protein 12/03/21 12/03/21 12/03/21 04:00 06:14 08:35 WBC RBC Hgb Hct MCHC RDW Lymph % (Auto) [place] % (Auto) Lymph # (Auto) [place] # (Auto) Seg Neutrophils % Lymphocytes % (Manual) Seg Neutrophils # Lymphocytes # (Manual) PT INR D-Dimer ABG pH 7.533 H ABG pO2 120.9 H ABG HCO3 ABG O2 Saturation ABG Base Excess ABG Hemoglobin 11.9 L VBG pH Oxyhemoglobin Sodium Potassium 3.5 L Chloride Carbon Dioxide 21 L BUN 63 H Creatinine 6.3 H Glucose 158 H POC Glucose 145 H Lactic Acid Calcium 7.9 L Phosphorus Magnesium AST ALT Lactate Dehydrogenase Total Creatine Kinase CK-MB (CK-2) CK-MB (CK-2) Rel Index Troponin T C-Reactive Protein NT-Pro-B Natriuret Pep Triglycerides HDL Cholesterol Urine WBC (Auto) Urine Creatinine Urine Total Protein 12/03/21 12/03/21 12/03/21 12:35 13:48 15:51 WBC RBC Hgb Hct MCHC RDW Lymph % (Auto) [place] % (Auto) Lymph # (Auto) [place] # (Auto) Seg Neutrophils % Lymphocytes % (Manual) Seg Neutrophils # Lymphocytes # (Manual) PT INR D-Dimer ABG pH ABG pO2 ABG HCO3 ABG O2 Saturation ABG Base Excess ABG Hemoglobin VBG pH Oxyhemoglobin Sodium Potassium Chloride Carbon Dioxide BUN Creatinine Glucose POC Glucose 151 H 168 H Lactic Acid Calcium Phosphorus Magnesium AST ALT Lactate Dehydrogenase Total Creatine Kinase CK-MB (CK-2) CK-MB (CK-2) Rel Index Troponin T C-Reactive Protein NT-Pro-B Natriuret Pep Triglycerides HDL Cholesterol Urine WBC (Auto) 9.0 H Urine Creatinine Urine Total Protein 12/03/21 12/03/21 12/03/21 16:20 16:35 23:21 WBC RBC Hgb Hct MCHC RDW Lymph % (Auto) [place] % (Auto) Lymph # (Auto) [place] # (Auto) Seg Neutrophils % Lymphocytes % (Manual) Seg Neutrophils # Lymphocytes # (Manual) PT INR D-Dimer ABG pH ABG pO2 ABG HCO3 ABG O2 Saturation ABG Base Excess ABG Hemoglobin VBG pH Oxyhemoglobin Sodium Potassium Chloride 92.3 L Carbon Dioxide BUN 67 H Creatinine 7.1 H Glucose 160 H POC Glucose 158 H 161 H Lactic Acid Calcium 7.3 L Phosphorus Magnesium AST ALT Lactate Dehydrogenase Total Creatine Kinase CK-MB (CK-2) CK-MB (CK-2) Rel Index Troponin T C-Reactive Protein NT-Pro-B Natriuret Pep Triglycerides HDL Cholesterol Urine WBC (Auto) Urine Creatinine Urine Total Protein 12/04/21 12/04/21 12/04/21 04:18 04:18 04:18 WBC RBC 3.29 L Hgb 10.0 L Hct 28.4 L D MCHC 35 H RDW 15.4 H Lymph % (Auto) [place] % (Auto) Lymph # (Auto) [place] # (Auto) Seg Neutrophils % Lymphocytes % (Manual) Seg Neutrophils # Lymphocytes # (Manual) PT INR D-Dimer ABG pH ABG pO2 ABG HCO3 ABG O2 Saturation ABG Base Excess ABG Hemoglobin VBG pH Oxyhemoglobin Sodium Potassium 3.5 L Chloride 91.5 L Carbon Dioxide 33 H D BUN 74 H Creatinine 7.5 H Glucose 155 H POC Glucose Lactic Acid 4.60 H* Calcium 7.2 L Phosphorus 4.60 H Magnesium AST ALT Lactate Dehydrogenase Total Creatine Kinase CK-MB (CK-2) CK-MB (CK-2) Rel Index Troponin T C-Reactive Protein NT-Pro-B Natriuret Pep Triglycerides HDL Cholesterol Urine WBC (Auto) Urine Creatinine Urine Total Protein 12/04/21 12/04/21 12/04/21 10:29 11:08 15:46 WBC RBC Hgb Hct MCHC RDW Lymph % (Auto) [place] % (Auto) Lymph # (Auto) [place] # (Auto) Seg Neutrophils % Lymphocytes % (Manual) Seg Neutrophils # Lymphocytes # (Manual) PT INR D-Dimer ABG pH 7.504 H ABG pO2 40.8 L ABG HCO3 30.1 H ABG O2 Saturation 75.1 L ABG Base Excess 6.6 H ABG Hemoglobin 10.2 L VBG pH Oxyhemoglobin 73.7 L Sodium Potassium Chloride Carbon Dioxide BUN Creatinine Glucose POC Glucose 146 H 155 H Lactic Acid Calcium Phosphorus Magnesium AST ALT Lactate Dehydrogenase Total Creatine Kinase CK-MB (CK-2) CK-MB (CK-2) Rel Index Troponin T C-Reactive Protein NT-Pro-B Natriuret Pep Triglycerides HDL Cholesterol Urine WBC (Auto) Urine Creatinine Urine Total Protein 12/04/21 12/05/21 12/05/21 23:30 04:22 04:22 WBC 12.7 H RBC 3.33 L Hgb 9.6 L Hct 29.3 L MCHC RDW 15.5 H Lymph % (Auto) [place] % (Auto) Lymph # (Auto) [place] # (Auto) Seg Neutrophils % Lymphocytes % (Manual) Seg Neutrophils # Lymphocytes # (Manual) PT INR D-Dimer ABG pH ABG pO2 ABG HCO3 ABG O2 Saturation ABG Base Excess ABG Hemoglobin VBG pH Oxyhemoglobin Sodium Potassium Chloride 90.3 L Carbon Dioxide BUN 89 H Creatinine 8.8 H Glucose 216 H POC Glucose 183 H Lactic Acid Calcium 8.0 L Phosphorus 4.60 H Magnesium AST ALT Lactate Dehydrogenase Total Creatine Kinase CK-MB (CK-2) CK-MB (CK-2) Rel Index Troponin T C-Reactive Protein NT-Pro-B Natriuret Pep Triglycerides 280 H HDL Cholesterol Urine WBC (Auto) Urine Creatinine Urine Total Protein 12/05/21 12/05/21 12/05/21 10:15 10:54 11:57 WBC RBC Hgb Hct MCHC RDW Lymph % (Auto) [place] % (Auto) Lymph # (Auto) [place] # (Auto) Seg Neutrophils % Lymphocytes % (Manual) Seg Neutrophils # Lymphocytes # (Manual) PT INR D-Dimer ABG pH 7.518 H ABG pO2 43.4 L ABG HCO3 28.8 H ABG O2 Saturation 78.6 L ABG Base Excess 5.6 H ABG Hemoglobin 8.4 L VBG pH Oxyhemoglobin 77.1 L Sodium Potassium Chloride Carbon Dioxide BUN Creatinine Glucose POC Glucose 187 H 196 H Lactic Acid Calcium Phosphorus Magnesium AST ALT Lactate Dehydrogenase Total Creatine Kinase CK-MB (CK-2) CK-MB (CK-2) Rel Index Troponin T C-Reactive Protein NT-Pro-B Natriuret Pep Triglycerides HDL Cholesterol Urine WBC (Auto) Urine Creatinine Urine Total Protein 12/05/21 12/05/21 12/05/21 16:34 18:02 23:39 WBC RBC Hgb Hct MCHC RDW Lymph % (Auto) [place] % (Auto) Lymph # (Auto) [place] # (Auto) Seg Neutrophils % Lymphocytes % (Manual) Seg Neutrophils # Lymphocytes # (Manual) PT INR D-Dimer ABG pH ABG pO2 ABG HCO3 ABG O2 Saturation ABG Base Excess ABG Hemoglobin VBG pH Oxyhemoglobin Sodium Potassium Chloride Carbon Dioxide BUN Creatinine Glucose POC Glucose 178 H 167 H 235 H Lactic Acid Calcium Phosphorus Magnesium AST ALT Lactate Dehydrogenase Total Creatine Kinase CK-MB (CK-2) CK-MB (CK-2) Rel Index Troponin T C-Reactive Protein NT-Pro-B Natriuret Pep Triglycerides HDL Cholesterol Urine WBC (Auto) Urine Creatinine Urine Total Protein 12/06/21 12/06/21 12/06/21 04:35 04:35 05:37 WBC 11.8 H RBC 2.99 L Hgb 8.9 L Hct 26.1 L MCHC RDW Lymph % (Auto) [place] % (Auto) Lymph # (Auto) [place] # (Auto) Seg Neutrophils % Lymphocytes % (Manual) Seg Neutrophils # Lymphocytes # (Manual) PT INR D-Dimer ABG pH ABG pO2 ABG HCO3 ABG O2 Saturation ABG Base Excess ABG Hemoglobin VBG pH Oxyhemoglobin Sodium Potassium Chloride 95.0 L Carbon Dioxide BUN 59 H Creatinine 6.3 H Glucose 244 H POC Glucose 251 H Lactic Acid Calcium Phosphorus Magnesium AST ALT Lactate Dehydrogenase Total Creatine Kinase CK-MB (CK-2) CK-MB (CK-2) Rel Index Troponin T C-Reactive Protein NT-Pro-B Natriuret Pep Triglycerides HDL Cholesterol Urine WBC (Auto) Urine Creatinine Urine Total Protein 12/06/21 12/06/21 12/06/21 06:05 11:45 17:19 WBC RBC Hgb Hct MCHC RDW Lymph % (Auto) [place] % (Auto) Lymph # (Auto) [place] # (Auto) Seg Neutrophils % Lymphocytes % (Manual) Seg Neutrophils # Lymphocytes # (Manual) PT INR D-Dimer ABG pH 7.555 H ABG pO2 95.3 H ABG HCO3 27.3 H ABG O2 Saturation ABG Base Excess 4.9 H ABG Hemoglobin 9.0 L VBG pH Oxyhemoglobin Sodium Potassium Chloride Carbon Dioxide BUN Creatinine Glucose POC Glucose 249 H 187 H Lactic Acid Calcium Phosphorus Magnesium AST ALT Lactate Dehydrogenase Total Creatine Kinase CK-MB (CK-2) CK-MB (CK-2) Rel Index Troponin T C-Reactive Protein NT-Pro-B Natriuret Pep Triglycerides HDL Cholesterol Urine WBC (Auto) Urine Creatinine Urine Total Protein 12/06/21 12/07/21 12/07/21 23:24 04:00 04:00 WBC RBC 3.10 L Hgb 8.8 L Hct 27.5 L MCHC RDW 15.8 H Lymph % (Auto) [place] % (Auto) Lymph # (Auto) [place] # (Auto) Seg Neutrophils % Lymphocytes % (Manual) Seg Neutrophils # Lymphocytes # (Manual) PT INR D-Dimer ABG pH ABG pO2 ABG HCO3 ABG O2 Saturation ABG Base Excess ABG Hemoglobin VBG pH Oxyhemoglobin Sodium Potassium Chloride Carbon Dioxide BUN 50 H Creatinine 5.5 H Glucose 248 H POC Glucose 233 H Lactic Acid Calcium Phosphorus Magnesium AST ALT Lactate Dehydrogenase Total Creatine Kinase CK-MB (CK-2) CK-MB (CK-2) Rel Index Troponin T C-Reactive Protein NT-Pro-B Natriuret Pep Triglycerides HDL Cholesterol Urine WBC (Auto) Urine Creatinine Urine Total Protein 12/07/21 12/07/21 12/07/21 04:55 05:40 10:49 WBC RBC Hgb Hct MCHC RDW Lymph % (Auto) [place] % (Auto) Lymph # (Auto) [place] # (Auto) Seg Neutrophils % Lymphocytes % (Manual) Seg Neutrophils # Lymphocytes # (Manual) PT INR D-Dimer ABG pH 7.519 H ABG pO2 65.4 L ABG HCO3 27.1 H ABG O2 Saturation ABG Base Excess 4.1 H ABG Hemoglobin 8.3 L VBG pH Oxyhemoglobin 94.9 L Sodium Potassium Chloride Carbon Dioxide BUN Creatinine Glucose POC Glucose 230 H 215 H Lactic Acid Calcium Phosphorus Magnesium AST ALT Lactate Dehydrogenase Total Creatine Kinase CK-MB (CK-2) CK-MB (CK-2) Rel Index Troponin T C-Reactive Protein NT-Pro-B Natriuret Pep Triglycerides HDL Cholesterol Urine WBC (Auto) Urine Creatinine Urine Total Protein 12/07/21 12/07/21 12/08/21 15:53 23:33 04:00 WBC 14.6 H RBC 2.91 L Hgb 8.9 L Hct 25.6 L MCHC 35 H RDW 15.6 H Lymph % (Auto) [place] % (Auto) Lymph # (Auto) [place] # (Auto) Seg Neutrophils % Lymphocytes % (Manual) Seg Neutrophils # Lymphocytes # (Manual) PT INR D-Dimer ABG pH ABG pO2 ABG HCO3 ABG O2 Saturation ABG Base Excess ABG Hemoglobin VBG pH Oxyhemoglobin Sodium Potassium Chloride Carbon Dioxide BUN Creatinine Glucose POC Glucose 167 H 206 H Lactic Acid Calcium Phosphorus Magnesium AST ALT Lactate Dehydrogenase Total Creatine Kinase CK-MB (CK-2) CK-MB (CK-2) Rel Index Troponin T C-Reactive Protein NT-Pro-B Natriuret Pep Triglycerides HDL Cholesterol Urine WBC (Auto) Urine Creatinine Urine Total Protein 12/08/21 12/08/21 12/08/21 04:00 04:10 05:15 WBC RBC Hgb Hct MCHC RDW Lymph % (Auto) [place] % (Auto) Lymph # (Auto) [place] # (Auto) Seg Neutrophils % Lymphocytes % (Manual) Seg Neutrophils # Lymphocytes # (Manual) PT INR D-Dimer ABG pH 7.511 H ABG pO2 77.8 L ABG HCO3 ABG O2 Saturation ABG Base Excess ABG Hemoglobin 9.0 L VBG pH Oxyhemoglobin Sodium Potassium Chloride 96.3 L Carbon Dioxide BUN 80 H Creatinine 6.4 H Glucose 223 H POC Glucose 193 H Lactic Acid Calcium Phosphorus Magnesium 2.50 H AST ALT Lactate Dehydrogenase Total Creatine Kinase CK-MB (CK-2) CK-MB (CK-2) Rel Index Troponin T C-Reactive Protein NT-Pro-B Natriuret Pep Triglycerides HDL Cholesterol Urine WBC (Auto) Urine Creatinine Urine Total Protein 12/08/21 12/08/21 12/08/21 11:29 16:53 19:56 WBC RBC Hgb Hct MCHC RDW Lymph % (Auto) [place] % (Auto) Lymph # (Auto) [place] # (Auto) Seg Neutrophils % Lymphocytes % (Manual) Seg Neutrophils # Lymphocytes # (Manual) PT INR D-Dimer ABG pH ABG pO2 ABG HCO3 ABG O2 Saturation ABG Base Excess ABG Hemoglobin VBG pH Oxyhemoglobin Sodium Potassium Chloride Carbon Dioxide BUN Creatinine Glucose POC Glucose 202 H 240 H 236 H Lactic Acid Calcium Phosphorus Magnesium AST ALT Lactate Dehydrogenase Total Creatine Kinase CK-MB (CK-2) CK-MB (CK-2) Rel Index Troponin T C-Reactive Protein NT-Pro-B Natriuret Pep Triglycerides HDL Cholesterol Urine WBC (Auto) Urine Creatinine Urine Total Protein 12/09/21 12/09/21 12/09/21 00:16 04:20 04:20 WBC 16.4 H RBC 2.91 L Hgb 8.7 L Hct 25.9 L MCHC RDW 15.9 H Lymph % (Auto) [place] % (Auto) Lymph # (Auto) [place] # (Auto) Seg Neutrophils % Lymphocytes % (Manual) Seg Neutrophils # Lymphocytes # (Manual) PT INR D-Dimer ABG pH ABG pO2 ABG HCO3 ABG O2 Saturation ABG Base Excess ABG Hemoglobin VBG pH Oxyhemoglobin Sodium Potassium Chloride Carbon Dioxide BUN 58 H Creatinine 4.5 H Glucose 235 H POC Glucose 243 H Lactic Acid Calcium Phosphorus 2.40 L D Magnesium AST ALT Lactate Dehydrogenase Total Creatine Kinase CK-MB (CK-2) CK-MB (CK-2) Rel Index Troponin T C-Reactive Protein NT-Pro-B Natriuret Pep Triglycerides HDL Cholesterol Urine WBC (Auto) Urine Creatinine Urine Total Protein 12/09/21 12/09/21 12/09/21 05:19 08:45 11:47 WBC RBC Hgb Hct MCHC RDW Lymph % (Auto) [place] % (Auto) Lymph # (Auto) [place] # (Auto) Seg Neutrophils % Lymphocytes % (Manual) Seg Neutrophils # Lymphocytes # (Manual) PT INR D-Dimer ABG pH 7.511 H ABG pO2 74.1 L ABG HCO3 ABG O2 Saturation ABG Base Excess ABG Hemoglobin 6.4 L VBG pH Oxyhemoglobin Sodium Potassium Chloride Carbon Dioxide BUN Creatinine Glucose POC Glucose 217 H 195 H Lactic Acid Calcium Phosphorus Magnesium AST ALT Lactate Dehydrogenase Total Creatine Kinase CK-MB (CK-2) CK-MB (CK-2) Rel Index Troponin T C-Reactive Protein NT-Pro-B Natriuret Pep Triglycerides HDL Cholesterol Urine WBC (Auto) Urine Creatinine Urine Total Protein 12/09/21 12/09/21 12/09/21 16:58 21:29 23:16 WBC RBC Hgb Hct MCHC RDW Lymph % (Auto) [place] % (Auto) Lymph # (Auto) [place] # (Auto) Seg Neutrophils % Lymphocytes % (Manual) Seg Neutrophils # Lymphocytes # (Manual) PT INR D-Dimer ABG pH ABG pO2 ABG HCO3 ABG O2 Saturation ABG Base Excess ABG Hemoglobin VBG pH Oxyhemoglobin Sodium Potassium Chloride Carbon Dioxide BUN Creatinine Glucose POC Glucose 168 H 224 H 215 H Lactic Acid Calcium Phosphorus Magnesium AST ALT Lactate Dehydrogenase Total Creatine Kinase CK-MB (CK-2) CK-MB (CK-2) Rel Index Troponin T C-Reactive Protein NT-Pro-B Natriuret Pep Triglycerides HDL Cholesterol Urine WBC (Auto) Urine Creatinine Urine Total Protein 12/10/21 12/10/21 12/10/21 04:30 04:30 05:11 WBC 18.2 H RBC 2.72 L Hgb 7.9 L Hct 24.4 L MCHC RDW 16.0 H Lymph % (Auto) [place] % (Auto) Lymph # (Auto) [place] # (Auto) Seg Neutrophils % Lymphocytes % (Manual) Seg Neutrophils # Lymphocytes # (Manual) PT INR D-Dimer ABG pH ABG pO2 ABG HCO3 ABG O2 Saturation ABG Base Excess ABG Hemoglobin VBG pH Oxyhemoglobin Sodium Potassium Chloride Carbon Dioxide 15 L D BUN 96 H Creatinine 6.1 H Glucose 215 H POC Glucose 183 H Lactic Acid Calcium 8.2 L Phosphorus 6.70 H D Magnesium AST ALT Lactate Dehydrogenase Total Creatine Kinase CK-MB (CK-2) CK-MB (CK-2) Rel Index Troponin T C-Reactive Protein NT-Pro-B Natriuret Pep Triglycerides HDL Cholesterol Urine WBC (Auto) Urine Creatinine Urine Total Protein 12/10/21 12/10/21 12/10/21 10:52 14:29 15:49 WBC RBC Hgb Hct MCHC RDW Lymph % (Auto) [place] % (Auto) Lymph # (Auto) [place] # (Auto) Seg Neutrophils % Lymphocytes % (Manual) Seg Neutrophils # Lymphocytes # (Manual) PT INR D-Dimer ABG pH ABG pO2 ABG HCO3 ABG O2 Saturation ABG Base Excess ABG Hemoglobin VBG pH Oxyhemoglobin Sodium Potassium Chloride Carbon Dioxide BUN Creatinine Glucose POC Glucose 179 H 222 H Lactic Acid 3.90 H* Calcium Phosphorus Magnesium AST ALT Lactate Dehydrogenase Total Creatine Kinase CK-MB (CK-2) CK-MB (CK-2) Rel Index Troponin T C-Reactive Protein NT-Pro-B Natriuret Pep Triglycerides HDL Cholesterol Urine WBC (Auto) Urine Creatinine Urine Total Protein 12/10/21 12/10/21 12/11/21 21:02 23:06 04:33 WBC 16.7 H RBC 2.59 L Hgb 7.3 L Hct 23.3 L MCHC RDW 16.2 H Lymph % (Auto) [place] % (Auto) Lymph # (Auto) [place] # (Auto) Seg Neutrophils % Lymphocytes % (Manual) Seg Neutrophils # Lymphocytes # (Manual) PT INR D-Dimer ABG pH ABG pO2 ABG HCO3 ABG O2 Saturation ABG Base Excess ABG Hemoglobin VBG pH Oxyhemoglobin Sodium Potassium Chloride Carbon Dioxide BUN Creatinine Glucose POC Glucose 238 H 241 H Lactic Acid Calcium Phosphorus Magnesium AST ALT Lactate Dehydrogenase Total Creatine Kinase CK-MB (CK-2) CK-MB (CK-2) Rel Index Troponin T C-Reactive Protein NT-Pro-B Natriuret Pep Triglycerides HDL Cholesterol Urine WBC (Auto) Urine Creatinine Urine Total Protein 12/11/21 12/11/21 12/11/21 04:33 05:05 10:59 WBC RBC Hgb Hct MCHC RDW Lymph % (Auto) [place] % (Auto) Lymph # (Auto) [place] # (Auto) Seg Neutrophils % Lymphocytes % (Manual) Seg Neutrophils # Lymphocytes # (Manual) PT INR D-Dimer ABG pH ABG pO2 ABG HCO3 ABG O2 Saturation ABG Base Excess ABG Hemoglobin VBG pH Oxyhemoglobin Sodium Potassium Chloride 97.5 L Carbon Dioxide 13 L BUN 76 H Creatinine 5.4 H Glucose 182 H POC Glucose 157 H 170 H Lactic Acid Calcium 7.6 L Phosphorus 6.00 H Magnesium AST ALT Lactate Dehydrogenase Total Creatine Kinase CK-MB (CK-2) CK-MB (CK-2) Rel Index Troponin T C-Reactive Protein NT-Pro-B Natriuret Pep Triglycerides HDL Cholesterol Urine WBC (Auto) Urine Creatinine Urine Total Protein Allied health notes reviewed: nursing
[2021-12-11] MEDS: NORepinephrine/NS 8 MG-250 ML 8 MG/250 ML INFUS..BTL IV SCH (13:48)
[2021-12-11] MEDS: MIDODRINE 5 MG TAB PO SCH (15:47)
--- NOTE | 2021-12-11 16:30 | Progress Note ---
Assessment and Plan Assessment and plan: This is a 86-year-old female with HTN, DM, PVD, paroxysmal A. fib right AKA initially admitted to the floor for sepsis, RAYNE, pneumonia who required a code met on 12/02 due to acute hypoxic respiratory failure requiring intubation and ventilatory support and transferred to ICU Assessment and plan Neuro: Acute metabolic encephalopathy -Sedated with fentanyl gtt -RASS goal 0 to -1 -Seroquel nightly -Avoid delirium -Reorientation as needed -Maintain sleep-wake cycle -As needed analgesia -CT head showed extensive microvascular angiopathy without clear CT evidence of acute intracranial hemorrhage, s/p embolization of right distal ICA aneurysm -EEG pending Cardiac: Elevated proBNP, NSTEMI, h/o HTN, PVD s/p right AKA, cardiomyopathy, paroxysmal atrial fibrillation -Cardiology consulted, appreciate recommendations -Admit proBNP greater than 2000, troponin 2.0 -Blood pressure monitoring per protocol -Resume home Plavix, Pletal, metoprolol -Echocardiogram shows ejection fraction of 30 to 35% with severely dilated cardiomyopathy -No diuretic therapy due to RAYNE -vasopressor support with Levophed and vasopressin -map goal >65 -Added midodrine 10 mg 3 times daily Respiratory: Acute hypoxic respiratory failure -CCM consulted, appreciate recommendations -Intubated on 12/02 with 7.50 ETT at 24 the lips -A.m. vent settings: AC TV 400, Rate 10, Peep 6, 40% fiO2 -See RT notes for titration -planned CPAP -A.m. ABG and CXR noted -VAP bundle -SPO2 monitoring -US chest shows 203 mL of fluid in pleural cavity -No thoracentesis at this time GI: NAD -24 hours + 1673 -PPI -NTR consulted for tube feedings -BR: Senokot : Acute kidney injury likely secondary to ATN requiring HD, hypochloremia -Nephrology consulted, appreciate recommendations -Strict intake and output -Renally dose medications -Avoid nephrotoxic medications -Daily weights -S/p Vas-Cath -Initiated hemodialysis on 12/06 -Currently on MWF schedule and as needed per nephrology -Renal ultrasound shows no significant normality ID: Severe sepsis, pneumonia, lactic acidosis -Secondary to pneumonia versus fluid overload with acute respiratory failure and acidosis -Admit CXR with bilateral pulmonary opacities -Infectious disease consulted, appreciate recommendation -Antibiotic therapy with cefepime, complete 5 days -cefepime restarted d/t increase in WBC -possible treatment for cdiff if leukocytosis worsens -COVID-19 PCR negative -f/u blood culture -12/02 blood culture, sputum culture, urine culture with no growth to date -Monitor WBC and temperature curve Endo: h/o DM type II -Avoid hypoglycemia -SSI -Long-acting insulin, titrate as needed -Accu-Cheks q. 6 Heme: Leukocytosis, anemia -Trend CBC -Epogen per nephrology -Transfuse hemoglobin less than 7 -Monitor for signs of bleeding -SCDs to BLE while in bed The high probability of a clinically significant, sudden or life threatening deterioration of the [multi] system(s) required my full and direct attention, intervention and personal management. The aggregate critical care time was [60] minutes. This time is in addition to time spent performing reported procedures but includes the following: [x] Data Review and interpretation [x] Patient assessment and monitoring of vital signs [x] Documentation [x] Medication orders and management Disposition Plan: ICU Total Time Spent with Patient (Minutes): 60 History Interval history: This is a 86-year-old female with HTN, DM, proximal atrial fibrillation right AKA who presented to the emergency department on 12/02 with complaints of shortness of breath ongoing for the past 3 days, productive cough, fever without chills. Patient is medically vaccinated against COVID-19. Recommend emergency department revealed CXR which showed development of bilateral airspace opacities compatible with hepatopulmonary edema, lab work was significant for leukocytosis of 15.4, elevated D-dimer 1461, hypokalemia at 3.5, metabolic acidosis with a CO2 of 4, lactic acidosis at 15.7, elevated proBNP greater than 3500 and elevated troponin of 2.6. Patient was started on antibiotics for possible underlying pneumonia and admitted to the hospital service as a COVID-19 PUI, sepsis with acute renal failure, metabolic acidosis, hypokalemia with consults to ID, nephrology and cardiology. Hospital Course to Date: 12/03: Patient remains intubated and sedated. This am ABG noted, continue to wean Fio2 as tolerated. Patient's renal function continue to worsen, patient currently on bcab gtt per Nephrology. Per Nephro plan for possible discussion with family, patient might require HD. Acidosis is improving continue bcarb and IV abx per ID, trend lactic acid. 12/04: Overnight events noted, remains ST in the 110s this am, BP stable. Renal function continue to worsen, per nursing staff patient's POA is leaning towards HD. Plan for possible family meeting to further discuss patient's goal of care. This am ABG noted, most likely venous, SPO2 is 100%, tolerating vent. Continue to wean Fio2 as tolerated. 12/05: Family meeting with grandson today at the bedside. Thorough discussion with the attending in regards to patient's current status/condition and overall prognosis. Patient's grandson voiced understanding of the info given, stated that he knows his grandma is older but he would like to give her a fighting chance and want everything done including hemodialysis. Code status was also add ressed, patient's POA stated that he would like full resuscitative measures at this time. Patient remains a FULL code. RIJ Vascath inserted, plan for possible HD today per Nephro. 12/06: Patient tolerated first HD treatment yesterday, renal function with some improvement this am. Plan for possible HD again today. Increased agitation overnight, sedation increased, will added low dose Seroquel Qhs. Basal insulin added for hyperglycemia. Continue to wean Fio2 as tolerated per CCM. 12/07: ZANE overnight. Remains on the vent and sedated. Renal function is improving on iHD, still oliguric though. Plan to wean off sedation today or tomorrow if tolerated, possible PST trial in the am. Basal lantus added for hyperglycemia. 12/08: Patient scheduled for hemodialysis today, Palacio catheter will be disco ntinued and CCM decreased rate with an ABG to be obtained at 1700. 12/09: [facility] would like to obtain left chest ultrasound, reports p.o., was on CPAP trial this morning but goes back to rate due to increased work of breathing and after being switched back patient experienced tachycardia and hypotension, vasopressin and Levophed ordered and placed back on fentanyl drip. Palacio catheter discontinued. 12/10: Chest ultrasound ordered, restarted on cefepime per ID note, remains on Levophed and vasopressin, patient had A. fib with RVR into the 170s with hemodialysis which was stopped and HR decreased to low ST, cardio is aware and EKG was obtained during incident. We will try patient CPAP today again. 12/11: Patient started on midodrine in efforts to wean off of Levophed. Patient CPAP trial this morning. Hospitalist Physical - Constitutional Vitals: Temp Pulse Resp BP Pulse Ox 98.1 F 90 19 106/47 97 12/11/21 16:24 12/11/21 15:00 12/11/21 12:10 12/11/21 15:00 12/11/21 15:00 General appearance: Present: no acute distress, other (Intubated and Sedated) - EENT Eyes: Present: PERRL - Neck Neck: Present: normal ROM - Respiratory Respiratory effort: normal Respiratory: bilateral: CTA - Cardiovascular Rhythm: regular Heart Sounds: Present: S1 & S2. Absent: systolic murmur, diastolic murmur - Extremities Extremities: no ischemia, pulses intact, pulses symmetrical, No edema, normal temperature, normal color Peripheral Pulses: within normal limits - Abdominal General gastrointestinal: soft, non-tender, non-distended, normal bowel sounds - Integumentary Integumentary: Present: warm, dry - Neurologic Neurologic: other (Does not follow commands, minimal response to painful stimuli) - Allied Health Allied health notes reviewed: nursing, RT, social work HEART Score - HEART Score Troponin: Troponin T 2.500 ng/mL (0.00-0.029) H* 12/02/21 13:51 Results - Labs CBC & Chem 7: 12/11/21 04:33 12/11/21 04:33 Labs: Laboratory Last Values WBC 16.7 K/mm3 (4.5-11.0) H 12/11/21 04:33 RBC 2.59 M/mm3 (3.65-5.03) L 12/11/21 04:33 Hgb 7.3 gm/dl (10.1-14.3) L 12/11/21 04:33 Hct 23.3 % (30.3-42.9) L 12/11/21 04:33 MCV 90 fl (79-97) 12/11/21 04:33 MCH 28 pg (28-32) 12/11/21 04:33 MCHC 31 % (30-34) 12/11/21 04:33 RDW 16.2 % (13.2-15.2) H 12/11/21 04:33 Plt Count 234 K/mm3 (140-440) 12/11/21 04:33 Lymph % (Auto) 6.3 % (13.4-35.0) L 12/02/21 01:24 Harrison % (Auto) 11.7 % (0.0-7.3) H 12/02/21 01:24 Eos % (Auto) 0.0 % (0.0-4.3) 12/02/21 01:24 Baso % (Auto) 0.2 % (0.0-1.8) 12/02/21 01:24 Lymph # (Auto) 1.0 K/mm3 (1.2-5.4) L 12/02/21 01:24 Harrison # (Auto) 1.8 K/mm3 (0.0-0.8) H 12/02/21 01:24 Eos # (Auto) 0.0 K/mm3 (0.0-0.4) 12/02/21 01:24 Baso # (Auto) 0.0 K/mm3 (0.0-0.1) 12/02/21 01:24 Add Manual Diff Complete 12/03/21 04:00 Total Counted 100 12/03/21 04:00 Seg Neutrophils % 81.8 % (40.0-70.0) H 12/02/21 01:24 Seg Neuts % (Manual) 67.0 % (40.0-70.0) 12/03/21 04:00 Band Neutrophils % 18.0 % 12/03/21 04:00 Lymphocytes % (Manual) 7.0 % (13.4-35.0) L 12/03/21 04:00 Reactive Lymphs % (Man) 0 % 12/03/21 04:00 Monocytes % (Manual) 3.0 % (0.0-7.3) 12/03/21 04:00 Eosinophils % (Manual) 0 % (0.0-4.3) 12/03/21 04:00 Basophils % (Manual) 0 % (0.0-1.8) 12/03/21 04:00 Metamyelocytes % 4.0 % 12/03/21 04:00 Myelocytes % 1.0 % 12/03/21 04:00 Promyelocytes % 0 % 12/03/21 04:00 Blast Cells % 0 % 12/03/21 04:00 Nucleated RBC % Not Reportable 12/03/21 04:00 Seg Neutrophils # 12.6 K/mm3 (1.8-7.7) H 12/02/21 01:24 Seg Neutrophils # Man 4.1 K/mm3 (1.8-7.7) 12/03/21 04:00 Band Neutrophils # 1.1 K/mm3 12/03/21 04:00 Lymphocytes # (Manual) 0.4 K/mm3 (1.2-5.4) L 12/03/21 04:00 Abs React Lymphs (Man) 0.0 K/mm3 12/03/21 04:00 Monocytes # (Manual) 0.2 K/mm3 (0.0-0.8) 12/03/21 04:00 Eosinophils # (Manual) 0.0 K/mm3 (0.0-0.4) 12/03/21 04:00 Basophils # (Manual) 0.0 K/mm3 (0.0-0.1) 12/03/21 04:00 Metamyelocytes # 0.2 K/mm3 12/03/21 04:00 Myelocytes # 0.1 K/mm3 12/03/21 04:00 Promyelocytes # 0.0 K/mm3 12/03/21 04:00 Blast Cells # 0.0 K/mm3 12/03/21 04:00 WBC Morphology Not Reportable 12/03/21 04:00 Hypersegmented Neuts Not Reportable 12/03/21 04:00 Hyposegmented Neuts Not Reportable 12/03/21 04:00 Hypogranular Neuts Not Reportable 12/03/21 04:00 Smudge Cells Not Reportable 12/03/21 04:00 Toxic Granulation Not Reportable 12/03/21 04:00 Toxic Vacuolation Not Reportable 12/03/21 04:00 Dohle Bodies Not Reportable 12/03/21 04:00 Pelger-Huet Anomaly Not Reportable 12/03/21 04:00 Randee Rods Not Reportable 12/03/21 04:00 Platelet Estimate Consistent w auto 12/03/21 04:00 Clumped Platelets Few 12/03/21 04:00 Plt Clumps, EDTA Not Reportable 12/03/21 04:00 Large Platelets Few 12/03/21 04:00 Giant Platelets Not Reportable 12/03/21 04:00 Platelet Satelliting Not Reportable 12/03/21 04:00 Plt Morphology Comment Not Reportable 12/03/21 04:00 RBC Morphology Not Reportable 12/03/21 04:00 Dimorphic RBCs Not Reportable 12/03/21 04:00 Polychromasia Not Reportable 12/03/21 04:00 Hypochromasia Not Reportable 12/03/21 04:00 Poikilocytosis Not Reportable 12/03/21 04:00 Anisocytosis Not Reportable 12/03/21 04:00 Microcytosis Not Reportable 12/03/21 04:00 Macrocytosis Not Reportable 12/03/21 04:00 Spherocytes Not Reportable 12/03/21 04:00 Pappenheimer Bodies Not Reportable 12/03/21 04:00 Sickle Cells Not Reportable 12/03/21 04:00 Target Cells Not Reportable 12/03/21 04:00 Tear Drop Cells Not Reportable 12/03/21 04:00 Ovalocytes Not Reportable 12/03/21 04:00 Helmet Cells Not Reportable 12/03/21 04:00 [place] Bodies Not Reportable 12/03/21 04:00 [place] Rings Not Reportable 12/03/21 04:00 Ania Cells 1+ 12/03/21 04:00 Bite Cells Not Reportable 12/03/21 04:00 Crenated Cell Not Reportable 12/03/21 04:00 Elliptocytes Not Reportable 12/03/21 04:00 Acanthocytes (Spur) Rare 12/03/21 04:00 Rouleaux Not Reportable 12/03/21 04:00 Hemoglobin C Crystals Not Reportable 12/03/21 04:00 Schistocytes Not Reportable 12/03/21 04:00 Malaria parasites Not Reportable 12/03/21 04:00 Josemanuel Bodies Not Reportable 12/03/21 04:00 Hem Pathologist Commnt No 12/03/21 04:00 PT 15.9 Sec. (12.2-14.9) H 12/02/21 01:24 INR 1.15 (0.87-1.13) H 12/02/21 01:24 APTT 31.5 Sec. (24.2-36.6) 12/02/21 01:24 D-Dimer 1461.68 ng/mlDDU (0-234) H 12/02/21 04:18 ABG pH 7.511 pH Units (7.350-7.450) H 12/09/21 08:45 ABG pCO2 30.5 mm Hg 12/09/21 08:45 ABG pO2 74.1 mm Hg (80.0-90.0) L 12/09/21 08:45 ABG HCO3 23.9 mmol/L (20.0-26.0) 12/09/21 08:45 ABG O2 Saturation 97.0 % (95.0-99.0) 12/09/21 08:45 ABG O2 Content 8.6 (0.0-44) 12/09/21 08:45 ABG Base Excess 0.8 mmol/L (-2.0-3.0) 12/09/21 08:45 ABG Hemoglobin 6.4 gm/dl (12.0-16.0) L 12/09/21 08:45 ABG Carboxyhemoglobin 1.5 % (0.0-5.0) 12/09/21 08:45 ABG Methemoglobin 0.3 % (0.0-1.5) 12/09/21 08:45 VBG pH 7.167 (7.320-7.420) L* 12/02/21 01:24 Oxyhemoglobin 95.2 % (95.0-99.0) 12/09/21 08:45 FiO2 40 % 12/09/21 08:45 Sodium 140 mmol/L (137-145) 12/11/21 04:33 Potassium 4.2 mmol/L (3.6-5.0) 12/11/21 04:33 Chloride 97.5 mmol/L (98-107) L 12/11/21 04:33 Carbon Dioxide 13 mmol/L (22-30) L 12/11/21 04:33 Anion Gap 34 mmol/L 12/11/21 04:33 BUN 76 mg/dL (7-17) H 12/11/21 04:33 Creatinine 5.4 mg/dL (0.6-1.2) H 12/11/21 04:33 Estimated GFR 7 ml/min 12/11/21 04:33 BUN/Creatinine Ratio 14 % 12/11/21 04:33 Glucose 182 mg/dL (65-100) H 12/11/21 04:33 POC Glucose 183 mg/dL (70-105) H 12/11/21 15:55 Lactic Acid 3.90 mmol/L (0.7-2.0) H* 12/10/21 14:29 Calcium 7.6 mg/dL (8.4-10.2) L 12/11/21 04:33 Phosphorus 6.00 mg/dL (2.5-4.5) H 12/11/21 04:33 Magnesium 2.20 mg/dL (1.7-2.3) 12/09/21 04:20 Ferritin 168.9 ng/mL (10.0-200.0) 12/02/21 04:18 Total Bilirubin 0.40 mg/dL (0.1-1.2) 12/02/21 01:24 AST 86 units/L (5-40) H 12/02/21 01:24 ALT 69 units/L (7-56) H 12/02/21 01:24 Alkaline Phosphatase 91 units/L (35-129) 12/02/21 01:24 Lactate Dehydrogenase 958 units/L (91-180) H 12/02/21 04:18 Total Creatine Kinase 254 units/L (30-135) H 12/02/21 01:24 CK-MB (CK-2) 20.2 ng/mL (0.0-4.0) H 12/02/21 01:24 CK-MB (CK-2) Rel Index 7.9 (0-4) H 12/02/21 01:24 Troponin T 2.500 ng/mL (0.00-0.029) H* 12/02/21 13:51 C-Reactive Protein 6.60 mg/dL (0.00-1.30) H 12/02/21 04:18 NT-Pro-B Natriuret Pep > 3500 pg/mL (0-900) H 12/02/21 01:24 Total Protein 7.7 g/dL (6.3-8.2) 12/02/21 01:24 Albumin 4.0 g/dL (3.9-5) 12/02/21 01:24 Albumin/Globulin Ratio 1.1 % 12/02/21 01:24 Triglycerides 112 mg/dL (2-149) 12/08/21 04:00 Cholesterol 177 mg/dL (50-199) 12/02/21 01:24 LDL Cholesterol Direct 91 mg/dL (50-130) 12/02/21 01:24 HDL Cholesterol 74 mg/dL (40-59) H 12/02/21 01:24 Cholesterol/HDL Ratio 2.39 % 12/02/21 01:24 Vitamin B12 > 2000 pg/mL (211-911) H 12/11/21 04:33 Procalcitonin 28.53 ng/mL (<0.15) 12/10/21 14:29 TSH 2.760 mlU/mL (0.270-4.200) 12/11/21 Unknown Urine Color Yellow (Yellow) 12/03/21 13:48 Urine Turbidity Hazy (Clear) 12/03/21 13:48 Urine pH 7.0 (5.0-7.0) 12/03/21 13:48 Ur Specific [place] 1.009 (1.003-1.030) 12/03/21 13:48 Urine Protein >500 mg/dL (Negative) 12/03/21 13:48 Urine Glucose (UA) 50 mg/dL (Negative) 12/03/21 13:48 Urine Ketones Neg mg/dL (Negative) 12/03/21 13:48 Urine Blood Mod (Negative) 12/03/21 13:48 Urine Nitrite Neg (Negative) 12/03/21 13:48 Urine Bilirubin Neg (Negative) 12/03/21 13:48 Urine Urobilinogen < 2.0 mg/dL (<2.0) 12/03/21 13:48 Ur Leukocyte Esterase Neg (Negative) 12/03/21 13:48 Urine WBC (Auto) 9.0 /HPF (0.0-6.0) H 12/03/21 13:48 Urine RBC (Auto) 5.0 /HPF (0.0-6.0) 12/03/21 13:48 U Epithel Cells (Auto) 2.0 /HPF (0-13.0) 12/03/21 13:48 Urine Bacteria (Auto) 1+ /HPF (Negative) 12/02/21 00:52 Urine Mucus Few /HPF 12/03/21 13:48 Urine Yeast (Budding) Few /HPF 12/02/21 00:52 Urine Creatinine 24.4 mg/dL (0.1-20.0) H 12/02/21 00:52 Protein/Creatinin Ratio 4.55 12/02/21 00:52 Urine Sodium 109 mmol/L 12/02/21 00:52 Urine Total Protein 111 mg/dL (5-11.8) H 12/02/21 00:52 Random Vancomycin 14.0 ug/mL (0-40.0) 12/05/21 04:22 Coronavirus (PCR) Negative (Negative) 12/02/21 09:00 Hepatitis A IgM Ab Non-reactive (NonReactive) 12/05/21 04:22 Hep Bs Antigen Non-reactive (Negative) 12/05/21 04:22 Hep B Core IgM Ab Non-reactive (NonReactive) 12/05/21 04:22 Hepatitis C Antibody Non-reactive (NonReactive) 12/05/21 04:22 Microbiology: Microbiology 12/11/21 04:30 Tracheal Aspirate Sputum Culture - Preliminary Palacio/IV: Voiding Method Incontinent Active Medications - Current Medications Current Medications: Generic Name Dose Route Start Last Admin Trade Name Freq PRN Reason Stop Dose Admin Acetaminophen 650 mg 12/02/21 04:37 12/07/21 04:58 Acetaminophen 325 Mg Tab PO 650 mg Q4H PRN Administration Pain MILD(1-3)/Fever >100.5/HYLTON Aspirin 81 mg 12/03/21 10:00 12/11/21 09:10 Aspirin 81 Mg Tab Chew PO 81 mg QDAY KHARI Administration Cilostazol 50 mg 12/02/21 22:00 12/11/21 09:10 Cilostazol 100 Mg Tab PO 50 mg BID KHARI Administration Clopidogrel Bisulfate 75 mg 12/03/21 10:00 12/11/21 09:10 Clopidogrel 75 Mg Tab PO 75 mg QDAY KHARI Administration Dextrose 0 ml 12/02/21 05:10 Dextrose 10% *Hypoglycemia IV PRN PRN Hypoglycemia Protocol Epoetin Lenny-epbx 10,000 unit 12/05/21 10:00 12/08/21 13:00 Epoetin Lenny-Epbx 10,000 Unit/1 Ml Vial IV 10,000 unit ED PRN Administration hemodialysis Famotidine 10 mg 12/04/21 22:00 12/11/21 09:10 Famotidine 10 Mg Tab PO 10 mg BID KHARI Administration Fentanyl 50 mcg 12/09/21 13:35 Fentanyl 100 Mcg/2 Ml Inj IV Q10MIN PRN ANALGESIA Heparin Sodium (Porcine) 5,000 unit 12/02/21 06:00 12/11/21 13:49 Heparin 5,000 Unit/1 Ml Vial SUB-Q 5,000 unit Q8HR KHARI Administration Hydrophilic Ointment 1 applic 12/02/21 17:32 Lip Therapy Vaseline TP Q2HR PRN Dry Lips Sodium Chloride 100 mls @ 999 mls/hr 12/07/21 15:36 Nacl 0.9% IV ED PRN Hypotension Fentanyl Citrate 2,000 mcg in 100 mls @ 3.25 mls/hr 12/09/21 14:00 12/11/21 13:48 Fentanyl Drip Premix IV 1 mcg/kg/hr TITR KHARI 3.25 mls/hr Administration Protocol 1 MCG/KG/HR Vasopressin 20 unit/ Sodium 101 mls @ 9.09 mls/hr 12/09/21 14:00 12/11/21 05:15 Chloride IV 0.03 units/min TITR KHARI 9.09 mls/hr Administration Protocol 0.03 UNITS/MIN NORepinephrine/NS 8 MG-250 ML 8 mg in 250 mls @ 3.75 mls/hr 12/09/21 14:00 12/11/21 15:47 Norepinephrine/Ns 8 Mg-250 Ml (Double Conc) IV 2 mcg/min TITRATE KHARI 3.75 mls/hr Titration Protocol 2 MCG/MIN Cefepime HCl 1 gm in 100 mls @ 200 mls/hr 12/10/21 18:00 12/10/21 17:52 Cefepime/Ns 1 Gm/100 Ml IV 200 mls/hr QPM [facility] Administration Protocol Insulin Glargine 25 units 12/09/21 22:00 12/10/21 21:16 Insulin Glargine 100 Units/Ml SUB-Q 25 units QHS [facility] Administration Insulin Human Lispro 0 unit 12/03/21 00:00 12/11/21 11:29 Insulin Lispro 100 Unit/Ml SUB-Q 3 unit Q6HR [facility] Administration Protocol Levalbuterol HCl 0.63 mg 12/02/21 10:00 Levalbuterol 0.63 Mg/3 Ml Nebu IH Q8HRT PRN Shortness Of Breath Magnesium Hydroxide 30 ml 12/02/21 04:37 Magnesium Hydroxide (Mom) Oral Liqd Udc PO Q4H PRN Constipation Metoprolol Tartrate 25 mg 12/02/21 15:00 12/11/21 09:12 Metoprolol Tartrate 25 Mg Tab PO Not Given QDAY KHARI Metoprolol Tartrate 2.5 mg 12/06/21 11:11 12/07/21 17:48 Metoprolol Tartrate 5 Mg/5 Ml Inj IV 2.5 mg Q6HR PRN Administration Tachycardia Midodrine 10 mg 12/11/21 16:00 12/11/21 15:47 Midodrine 5 Mg Tab PO 10 mg TID@0800,1200,1600 KHARI Administration Multi-Ingred Cream/Lotion/Oil/Oint 1 applic 12/02/21 17:32 Mineral Oil/Petrolatum, White Ophth Oint 3.5 Gm OU Q4HR PRN Dry Eye(s) Ondansetron HCl 4 mg 12/02/21 04:37 Ondansetron 4 Mg/2 Ml Inj IV Q8H PRN Nausea And Vomiting Pravastatin Sodium 80 mg 12/02/21 22:00 12/10/21 21:17 Pravastatin 80 Mg Tab PO 80 mg QHS KHARI Administration Senna/Docusate Sodium 1 tab 12/02/21 22:00 12/11/21 09:10 Sennosides/Docusate Sodium 8.6/50 Mg Tab FEEDTUBE 1 tab BID KHARI Administration Sodium Chloride 10 ml 12/02/21 10:00 12/11/21 09:10 Sodium Chloride 0.9% 10 Ml Flush Syringe IV 10 ml BID KHARI Administration Sodium Chloride 10 ml 12/02/21 04:37 Sodium Chloride 0.9% 10 Ml Flush Syringe IV PRN PRN LINE FLUSH Nutrition/Malnutrition Assess - Dietary Evaluation Nutrition/Malnutrition Findings: Nutrition Notes Start: 12/03/21 16:28 Freq: Status: Active Protocol: Document 12/06/21 16:59 ONI (Rec: 12/06/21 17:19 ONI [id number]) Nutrition Notes Initial or Follow up Brief Note Current Diagnosis Acute Kidney Injury,Diabetes, Sepsis,Hypertension, Respiratory Failure, Hyperlipidemia Other Pertinent Diagnosis Pneumonia, Lactic Acidosis, Metabolic Acidosis, RAYNE+HD, PVD, R-AKA. Current Diet TF-Nepro w/CARBSTEADY @ 30 ml/ hr (since D 12/05). Height 5 ft 4 in Weight 61.3 kg [place] Body Weight (kg) 54.54 BMI 23.1 Weight change and time frame No body weight change reported . Weight Status Appropriate Subjective/Other Information RD consult for routine F/U on TF tolerance. TF infusing as prescribed. No report available on tolerance. Pt continues on Mechanical Ventilation. Percent of energy/protein needs met: Prescribed TF-Nepro w/ CARBSTEADY @ 30 ml/hr provides for energy/protein needs (1, 296 Kcal/58 g) -in addition, Propofol adds 49 Kcal- during LOS, 108% Kcal; 78% AA. #1 Nutrition Diagnosis Inadequate oral intake Diagnosis Progress(for reassessment Continues documentation) Is patient on ventilator? Yes Is Patient Ambulatory and/or Out of Bed No REE-([facility]-confined to bed) [phone] Calculation Used for Recommendations [facility] Additional Notes Protein: >1.2 g/Kg; >74 g/day. Fluids: 1 ml/Kcal, or as per MD. Nutrition Intervention Nutrition Support: Nepro w/CARBSTEADY @ 30 ml/hr. Flush: 130 ml water Q 4 hr, or as per MD. Kcal 1,296 Protein (gm) 58 Carbohydrates (gm) 116 Fat (gm) 69 Fluid (mL) 523 Fiber (gm) 9 % RDI: 104% Kcal; 78% AA. Goal #1 Provide at least 75% of energy /protein needs through Enteral Feeding during LOS. Goal #2 Maintain body weight within +/ -3% of admission body weight during LOS. Follow-Up By: 12/12/21 Additional Comments Continue monitoring TF tolerance and BM.
[2021-12-11] MEDS: CEFEPIME/NS 1 GM/100 ML 1 GM/100 ML BAG IV SCH (17:53)
[2021-12-11] MEDS: PRAVASTATIN 80 MG TAB PO SCH (21:12)
[2021-12-11] MEDS: INSULIN GLARGINE 100 UNITS/ML SUB-Q SCH (21:14)
[2021-12-12] MEDS ORDERED: SODIUM BICARB 8.4% 50 MEQ/50 ML VIAL IV ONE ×3 (00:07→06:23)
[2021-12-12] MEDS: INSULIN LISPRO 100 UNIT/ML SUB-Q SCH ×2 (00:21→05:05)
[2021-12-12] MEDS: VASOPRESSIN 20 UNIT in SODIUM CHLORIDE 0.9% 100 ML IV SCH ×2 (00:51→11:58)
[2021-12-12] MEDS ORDERED: SODIUM CHLORIDE 0.9% 250ML 250 ML IV ONE (01:14)
[2021-12-12] MEDS: NORepinephrine/NS 8 MG-250 ML 8 MG/250 ML INFUS..BTL IV SCH ×2 (03:19→08:19)
[2021-12-12] MEDS: PHENYLEPHRINE 100 MG in SODIUM CHLORIDE 0.9% 90 ML IV SCH ×2 (04:05→08:52)
[2021-12-12] MEDS ORDERED: SIMPLE SYRUP 15 ML FEEDTUBE PRN (04:45)
[2021-12-12] MEDS: DEXTROSE 10% *Hypoglycemia IV PRN ×3 (04:46→11:59)
[2021-12-12] MEDS: HEPARIN 5,000 UNIT/1 ML VIAL SUB-Q SCH (05:51)
[2021-12-12 05:55] LABS: Hematocrit 22.3 % (30.3-42.9); Hemoglobin 6.8 gm/dl (10.1-14.3); Mean Corpuscular HGB Conc 31 % (30-34); Mean Corpuscular Volume 96 fl (79-97); Platelet Count 154 K/mm3 (140-440); Red Blood Count 2.32 M/mm3 (3.65-5.03); Red Cell Distribution Width 17.6 % (13.2-15.2)
[2021-12-12] MEDS ORDERED: SODIUM BICARB 8.4% 50 MEQ/50 ML SYRINGE IV ONE ×2 (06:23→06:27)
[2021-12-12] MEDS ORDERED: SODIUM CHLORIDE 0.9% 500 ML 500 ML IV ONE (06:25)
[2021-12-12] MEDS ORDERED: DOPamine 800 MG/D5W 250ML 800 MG/250 ML BAG IV SCH (07:00)
[2021-12-12] MEDS ORDERED: DOPamine 800 MG in DEXTROSE 5% IN WATER 230 ML IV SCH (07:00)
[2021-12-12] MEDS: MIDODRINE 5 MG TAB PO SCH (08:53)
[2021-12-12 09:40] LABS: Calcium 7.5 mg/dL (8.4-10.2)
--- NOTE | 2021-12-12 10:17 | Progress Note ---
Assessment and Plan - Patient Problems (1) Non-ST elevation myocardial infarction (NSTEMI) Current Visit: Yes Status: Acute Plan to address problem: Patient presented to the hospital with acute pulmonary edema and ECG evidence of ST depression of acute inferior lateral ischemia. Hospital course complicated by the further development of a right upper lobe pneumonia, respiratory failure, currently on the ventilator. Due to the patient's advanced age, frailty, multiple comorbidities, including advanced dementia and end-stage renal failure, she is not a candidate for aggressive and invasive cardiac evaluation and therapies. We will continue supportive management with medical therapy for coronary artery disease and heart failure as tolerated. Echocardiogram shows a severe dilated cardiomyopathy, ejection fraction 30 to 35%. Subjective Date of service: 12/12/21 Principal diagnosis: AHRF; Pulm Edema;Pneumonia; Sepsis; Met. acidosis; Acute Kidney Injury; HTN Interval history: Patient is on the vent, unresponsive. 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 Objective Vital Signs Temp Pulse Pulse Resp BP Pulse Ox 12/12/21 09:00 81 77/44 71 L 12/12/21 08:45 68 74/41 66 L 12/12/21 08:30 65 74/41 64 L 12/12/21 08:15 65 85/46 62 L 12/12/21 08:10 75 77/41 61 L 12/12/21 08:00 81 71 24 77/41 52 L 12/12/21 07:45 76 92/43 56 L 12/12/21 07:30 62 92/43 58 L 12/12/21 07:15 75 97/47 57 L 12/12/21 07:00 81 97/47 53 L 12/12/21 06:45 79 116/53 60 L 12/12/21 06:30 85 116/53 56 L 12/12/21 06:15 80 104/47 61 L 12/12/21 06:00 78 104/47 94 12/12/21 05:45 82 92/42 94 12/12/21 05:30 81 92/42 97 12/12/21 05:15 86 99/38 80 L 12/12/21 05:00 82 99/38 90 12/12/21 04:53 84 97/34 82 L 12/12/21 04:45 85 105/43 79 L 12/12/21 04:31 92 H 105/43 42 L 12/12/21 04:15 89 91/47 19 L 12/12/21 04:00 97.6 F 99 H 91/47 79 L 12/12/21 03:58 90 28 H 77 L 12/12/21 03:55 93 H 12/12/21 03:45 97 H 102/50 75 L 12/12/21 03:30 96 H 102/50 12/12/21 03:15 98.2 F 100 H 102/51 72 L 12/12/21 03:00 102 H 127/51 88 12/12/21 02:45 105 H 116/57 85 12/12/21 02:30 104 H 114/53 96 12/12/21 02:15 95 H 121/54 82 L 12/12/21 02:00 95 H 127/51 78 L 12/12/21 01:45 94 H 126/51 76 L 12/12/21 01:44 69 L 12/12/21 01:35 94 H 107/51 72 L 12/12/21 01:30 88 107/51 73 L 12/12/21 01:15 94 H 116/51 76 L 12/12/21 01:01 73 76/38 47 L 12/12/21 00:45 78 104/51 32 L 12/12/21 00:30 85 104/51 45 L 12/12/21 00:15 81 111/48 83 L 12/12/21 00:00 99.5 F 86 86 25 H 111/48 82 L 12/11/21 23:57 83 4 L 111/48 99 12/11/21 23:45 89 118/49 90 12/11/21 23:30 93 H 118/49 94 12/11/21 23:15 92 H 111/50 99 12/11/21 23:09 94 H 114/51 100 12/11/21 23:00 94 H 114/51 99 12/11/21 22:45 93 H 122/53 100 12/11/21 22:30 90 108/44 100 12/11/21 22:15 91 H 113/49 100 12/11/21 22:11 92 H 117/51 97 12/11/21 22:05 93 H 117/51 100 12/11/21 22:00 94 H 126/51 92 12/11/21 21:55 95 H 123/54 95 12/11/21 21:50 95 H 130/56 91 12/11/21 21:45 93 H 136/60 58 L 12/11/21 21:40 99 H 84 18 136/60 66 L 12/11/21 21:35 94 H 125/50 95 12/11/21 21:30 88 125/50 54 L 12/11/21 21:25 63 59/32 12/11/21 21:20 67 84/35 12/11/21 21:15 71 121/43 83 L 12/11/21 21:11 73 121/43 93 12/11/21 21:05 72 121/43 94 12/11/21 21:00 79 121/43 91 12/11/21 20:55 79 117/45 94 12/11/21 20:51 81 117/45 94 12/11/21 20:45 83 117/45 94 12/11/21 20:41 85 120/48 94 12/11/21 20:35 85 120/48 95 12/11/21 20:30 85 120/48 92 12/11/21 20:25 83 106/48 95 12/11/21 20:21 87 106/48 95 12/11/21 20:15 84 11 L 106/48 94 12/11/21 20:00 98.2 F 84 84 20 117/45 95 12/11/21 19:45 86 120/50 96 12/11/21 19:30 85 117/47 96 12/11/21 19:15 84 115/46 96 12/11/21 19:00 87 113/47 95 12/11/21 18:45 82 95/44 95 12/11/21 18:30 82 105/44 96 12/11/21 18:15 82 103/45 95 12/11/21 18:00 82 105/44 95 12/11/21 17:30 82 102/45 12/11/21 17:00 84 99/44 95 12/11/21 16:30 91 H 106/49 12/11/21 16:24 98.1 F 12/11/21 16:01 106/44 96 12/11/21 16:00 97 H 89 22 106/49 97 12/11/21 15:30 94 H 116/50 12/11/21 15:00 90 106/47 97 12/11/21 14:31 95 H 124/50 97 12/11/21 14:00 89 104/41 98 12/11/21 13:30 93 H 101/47 97 12/11/21 13:00 93 H 115/45 12/11/21 12:55 93 H 108/44 99 12/11/21 12:30 92 H 105/45 98 12/11/21 12:10 85 19 97 12/11/21 12:09 85 12/11/21 12:00 87 104/43 12/11/21 11:31 98.4 F 12/11/21 11:30 84 95/41 12/11/21 11:00 80 99/42 98 12/11/21 10:30 85 95/41 - Physical Examination General: Cachectic, Other (Unresponsive, intubated, on the vent) HEENT: Positive: Other (Pupils nonreactive) Neck: Positive: neck supple Cardiac: Positive: Irregularly Regular Lungs: Positive: Decreased Breath Sounds Neuro: Positive: Other (Unresponsive, intubated on the vent) Abdomen: Positive: Soft Skin: Positive: Clear Extremities: Absent: edema - Labs and Meds CBC 12/12/21 Range/Units 05:15 WBC 21.2 H (4.5-11.0) K/mm3 RBC 2.32 L (3.65-5.03) M/mm3 Hgb 6.8 L (10.1-14.3) gm/dl Hct 22.3 L (30.3-42.9) % Plt Count 154 (140-440) K/mm3 Comprehensive Metabolic Panel 12/12/21 Range/Units 08:23 Sodium 147 H (137-145) mmol/L Potassium 6.2 H* D (3.6-5.0) mmol/L Chloride 93.1 L (98-107) mmol/L Carbon Dioxide 6 L* D (22-30) mmol/L BUN 97 H (7-17) mg/dL Creatinine 6.8 H (0.6-1.2) mg/dL Glucose 64 L (65-100) mg/dL Calcium 7.5 L (8.4-10.2) mg/dL - Allied health notes Allied health notes reviewed: nursing
[2021-12-12] MEDS: METOPROLOL TARTRATE 25 MG TAB PO SCH (10:45)
[2021-12-12] MEDS: ASPIRIN 81 MG TAB CHEW PO SCH (10:45)
[2021-12-12] MEDS: FAMOTIDINE 10 MG TAB PO SCH (10:48)
[2021-12-12] MEDS: CILOSTAZOL 100 MG TAB PO SCH (10:48)
[2021-12-12] MEDS: SENNOSIDES/DOCUSATE SODIUM 8.6/50 MG TAB FEEDTUBE SCH (10:48)
[2021-12-12] MEDS: CLOPIDOGREL 75 MG TAB PO SCH (10:48)
--- NOTE | 2021-12-12 11:38 | Progress Note ---
Assessment and Plan Assessment and Plan Assessment and plan: This is a 86-year-old female with HTN, DM, PVD, paroxysmal A. fib right AKA initially admitted to the floor for sepsis, RAYNE, pneumonia who required a code met on 12/02 due to acute hypoxic respiratory failure requiring intubation and ventilatory support and transferred to ICU Assessment and plan # Acute encephalopathy -mostly multifactorial in part related to underlying infection, renal failure and or possible medications -Ct brain is note -stop sedation -correct underlying infection -correct electrolytes abnormality and consider dialysis as per nephrology -EEG diffuse slowing 2-3 hz -[id number],TSH note -Today noted dilated pupils none reactive, no gag -she is with BP#77/41 -Prognosis is poor # Elevated proBNP, NSTEMI, h/o HTN, PVD s/p right AKA, cardiomyopathy, parox ysmal atrial fibrillation not on AC [she is on ASA and Plavix] -Cardiology consulted, appreciate recommendations -Admit proBNP greater than 2000, troponin 2.0 -Blood pressure monitoring per protocol -Resume home Plavix, Pletal, metoprolol -Echocardiogram shows ejection fraction of 30 to 35% with severely dilated cardiomyopathy -No diuretic therapy due to RAYNE -vasopressor support with Levophed and vasopressin -map goal >65 # Acute hypoxic respiratory failure -Intubated on 12/02 with 7.50 ETT at 24 the lips -US chest shows 203 mL of fluid in pleural cavity # Acute kidney injury likely secondary to ATN requiring HD, hypochloremia -Nephrology consulted, appreciate recommendations -S/p Vas-Cath -Initiated hemodialysis on 12/06 -Currently on MWF schedule and as needed per nephrology -Renal ultrasound shows no significant normality # Severe sepsis, pneumonia, lactic acidosis -Secondary to pneumonia versus fluid overload with acute respiratory failure and acidosis -Admit CXR with bilateral pulmonary opacities -Infectious disease consulted, appreciate recommendation -Antibiotic therapy with cefepime, complete 5 days -cefepime restarted d/t increase in WBC -possible treatment for cdiff if leukocytosis worsens -COVID-19 PCR negative # DM type II -Avoid hypoglycemia -SSI -Long-acting insulin, titrate as needed -Accu-Cheks q. 6 # Leukocytosis, anemia -Trend CBC -Epogen per nephrology -Transfuse hemoglobin less than 7 -Monitor for signs of bleeding -SCDs to BLE while in bed PLAN will sign off Subjective Date of service: 12/12/21 Principal diagnosis: AHRF; Pulm Edema;Pneumonia; Sepsis; Met. acidosis; Acute Kidney Injury; HTN Interval history: today she is worse on 2 pressor agent with BP#77/41 pupils dilated none reactive absent gag and corneal reflexes Objective - Vital Sign Vital Signs - 12hr 12/11/21 12/11/21 12/12/21 23:45 23:57 00:00 Temperature 99.5 F Pulse Rate 89 83 86 Pulse Rate [ 86 From Monitor] Respiratory 4 L 25 H Rate Blood Pressure 118/49 111/48 111/48 O2 Sat by Pulse 90 99 82 L Oximetry 12/12/21 12/12/21 12/12/21 00:15 00:30 00:45 Temperature Pulse Rate 81 85 78 Pulse Rate [ From Monitor] Respiratory Rate Blood Pressure 111/48 104/51 104/51 O2 Sat by Pulse 83 L 45 L 32 L Oximetry 12/12/21 12/12/21 12/12/21 01:01 01:15 01:30 Temperature Pulse Rate 73 94 H 88 Pulse Rate [ From Monitor] Respiratory Rate Blood Pressure 76/38 116/51 107/51 O2 Sat by Pulse 47 L 76 L 73 L Oximetry 12/12/21 12/12/21 12/12/21 01:35 01:44 01:45 Temperature Pulse Rate 94 H 94 H Pulse Rate [ From Monitor] Respiratory Rate Blood Pressure 107/51 126/51 O2 Sat by Pulse 72 L 69 L 76 L Oximetry 12/12/21 12/12/21 12/12/21 02:00 02:15 02:30 Temperature Pulse Rate 95 H 95 H 104 H Pulse Rate [ From Monitor] Respiratory Rate Blood Pressure 127/51 121/54 114/53 O2 Sat by Pulse 78 L 82 L 96 Oximetry 12/12/21 12/12/21 12/12/21 02:45 03:00 03:15 Temperature 98.2 F Pulse Rate 105 H 102 H 100 H Pulse Rate [ From Monitor] Respiratory Rate Blood Pressure 116/57 127/51 102/51 O2 Sat by Pulse 85 88 72 L Oximetry 12/12/21 12/12/21 12/12/21 03:30 03:45 03:55 Temperature Pulse Rate 96 H 97 H 93 H Pulse Rate [ From Monitor] Respiratory Rate Blood Pressure 102/50 102/50 O2 Sat by Pulse 75 L Oximetry 12/12/21 12/12/21 12/12/21 03:58 04:00 04:15 Temperature 97.6 F Pulse Rate 99 H 89 Pulse Rate [ 90 From Monitor] Respiratory 28 H Rate Blood Pressure 91/47 91/47 O2 Sat by Pulse 77 L 79 L 19 L Oximetry 12/12/21 12/12/21 12/12/21 04:31 04:45 04:53 Temperature Pulse Rate 92 H 85 84 Pulse Rate [ From Monitor] Respiratory Rate Blood Pressure 105/43 105/43 97/34 O2 Sat by Pulse 42 L 79 L 82 L Oximetry 12/12/21 12/12/21 12/12/21 05:00 05:15 05:30 Temperature Pulse Rate 82 86 81 Pulse Rate [ From Monitor] Respiratory Rate Blood Pressure 99/38 99/38 92/42 O2 Sat by Pulse 90 80 L 97 Oximetry 12/12/21 12/12/21 12/12/21 05:45 06:00 06:15 Temperature Pulse Rate 82 78 80 Pulse Rate [ From Monitor] Respiratory Rate Blood Pressure 92/42 104/47 104/47 O2 Sat by Pulse 94 94 61 L Oximetry 12/12/21 12/12/21 12/12/21 06:30 06:45 07:00 Temperature Pulse Rate 85 79 81 Pulse Rate [ From Monitor] Respiratory Rate Blood Pressure 116/53 116/53 97/47 O2 Sat by Pulse 56 L 60 L 53 L Oximetry 12/12/21 12/12/21 12/12/21 07:15 07:30 07:45 Temperature Pulse Rate 75 62 76 Pulse Rate [ From Monitor] Respiratory Rate Blood Pressure 97/47 92/43 92/43 O2 Sat by Pulse 57 L 58 L 56 L Oximetry 12/12/21 12/12/21 12/12/21 08:00 08:10 08:15 Temperature Pulse Rate 81 75 65 Pulse Rate [ 71 From Monitor] Respiratory 24 Rate Blood Pressure 77/41 77/41 85/46 O2 Sat by Pulse 52 L 61 L 62 L Oximetry 12/12/21 12/12/21 12/12/21 08:30 08:45 09:00 Temperature Pulse Rate 65 68 81 Pulse Rate [ From Monitor] Respiratory Rate Blood Pressure 74/41 74/41 77/44 O2 Sat by Pulse 64 L 66 L 71 L Oximetry 0212/12/21 12/12/21 09:15 09:31 09:45 Temperature Pulse Rate 86 59 L 106 H Pulse Rate [ From Monitor] Respiratory Rate Blood Pressure 77/44 82/43 72/45 O2 Sat by Pulse 71 L 76 L 76 L Oximetry 12/12/21 12/12/21 12/12/21 10:00 10:15 10:30 Temperature Pulse Rate 45 L 98 H 51 L Pulse Rate [ From Monitor] Respiratory Rate Blood Pressure 74/39 74/39 70/35 O2 Sat by Pulse 77 L 63 L Oximetry 12/12/21 12/12/21 10:45 11:00 Temperature Pulse Rate 53 L 92 H Pulse Rate [ From Monitor] Respiratory Rate Blood Pressure 70/35 65/44 O2 Sat by Pulse 63 L 64 L Oximetry - General Apperance Constitutional: comfortable - EENT EENT: PERRL, mucous membranes moist - Respiratory Respiratory: chest non-tender, lungs clear, rhonchi - Cardiovascular Cardiovascular: other (irregular) Extremities: no peripheral edema bilat, no clubbing, cyanosis - Gastrointestinal Gastrointestinal: normoactive bowel sounds - Integumentary Integumentary: normal - Neurologic Cranial nerve examination: other (pupils dialted none reactive, no corneal no gag , no EOM is noted, on vent.) Detailed motor examination: other (no movment to stimuli) - Laboratory Findings CBC and BMP: 12/12/21 05:15 12/12/21 08:23 Abnormal Lab Findings: Abnormal Labs 12/02/21 12/02/21 12/02/21 00:52 00:52 01:24 WBC 15.4 H RBC Hgb Hct MCHC RDW 15.8 H Lymph % (Auto) 6.3 L Day % (Auto) 11.7 H Lymph # (Auto) 1.0 L Day # (Auto) 1.8 H Seg Neutrophils % 81.8 H Lymphocytes % (Manual) Seg Neutrophils # 12.6 H Lymphocytes # (Manual) PT INR D-Dimer ABG pH POC ABG pCO2 POC ABG pO2 ABG pO2 ABG HCO3 ABG O2 Saturation ABG Base Excess ABG Hemoglobin ABG Oxyhemoglobin VBG pH Oxyhemoglobin Carboxyhemoglobin Sodium Potassium Chloride Carbon Dioxide BUN Creatinine Glucose POC Glucose Lactic Acid Calcium Phosphorus Magnesium AST ALT Lactate Dehydrogenase Total Creatine Kinase CK-MB (CK-2) CK-MB (CK-2) Rel Index Troponin T C-Reactive Protein NT-Pro-B Natriuret Pep Triglycerides HDL Cholesterol Vitamin B12 Urine WBC (Auto) 27.0 H Urine Creatinine 24.4 H Urine Total Protein 111 H Crossmatch 12/02/21 12/02/21 12/02/21 01:24 01:24 01:24 WBC RBC Hgb Hct MCHC RDW Lymph % (Auto) Day % (Auto) Lymph # (Auto) Day # (Auto) Seg Neutrophils % Lymphocytes % (Manual) Seg Neutrophils # Lymphocytes # (Manual) PT 15.9 H INR 1.15 H D-Dimer ABG pH POC ABG pCO2 POC ABG pO2 ABG pO2 ABG HCO3 ABG O2 Saturation ABG Base Excess ABG Hemoglobin ABG Oxyhemoglobin VBG pH Oxyhemoglobin Carboxyhemoglobin Sodium Potassium 3.5 L Chloride Carbon Dioxide 4 L* BUN 43 H Creatinine 5.1 H Glucose 239 H POC Glucose Lactic Acid 15.70 H* Calcium Phosphorus Magnesium AST 86 H ALT 69 H Lactate Dehydrogenase Total Creatine Kinase 254 H CK-MB (CK-2) 20.2 H CK-MB (CK-2) Rel Index 7.9 H Troponin T C-Reactive Protein NT-Pro-B Natriuret Pep Triglycerides HDL Cholesterol Vitamin B12 Urine WBC (Auto) Urine Creatinine Urine Total Protein Crossmatch 12/02/21 12/02/21 12/02/21 01:24 01:24 04:18 WBC RBC Hgb Hct MCHC RDW Lymph % (Auto) Day % (Auto) Lymph # (Auto) Day # (Auto) Seg Neutrophils % Lymphocytes % (Manual) Seg Neutrophils # Lymphocytes # (Manual) PT INR D-Dimer 1461.68 H ABG pH POC ABG pCO2 POC ABG pO2 ABG pO2 ABG HCO3 ABG O2 Saturation ABG Base Excess ABG Hemoglobin ABG Oxyhemoglobin VBG pH 7.167 L* Oxyhemoglobin Carboxyhemoglobin Sodium Potassium Chloride Carbon Dioxide BUN Creatinine Glucose POC Glucose Lactic Acid Calcium Phosphorus Magnesium AST ALT Lactate Dehydrogenase Total Creatine Kinase CK-MB (CK-2) CK-MB (CK-2) Rel Index Troponin T 2.600 H* C-Reactive Protein NT-Pro-B Natriuret Pep > 3500 H Triglycerides HDL Cholesterol 74 H Vitamin B12 Urine WBC (Auto) Urine Creatinine Urine Total Protein Crossmatch 12/02/21 12/02/21 12/02/21 04:18 04:18 10:47 WBC RBC Hgb Hct MCHC RDW Lymph % (Auto) Day % (Auto) Lymph # (Auto) Day # (Auto) Seg Neutrophils % Lymphocytes % (Manual) Seg Neutrophils # Lymphocytes # (Manual) PT INR D-Dimer ABG pH POC ABG pCO2 POC ABG pO2 ABG pO2 ABG HCO3 ABG O2 Saturation ABG Base Excess ABG Hemoglobin ABG Oxyhemoglobin VBG pH Oxyhemoglobin Carboxyhemoglobin Sodium Potassium Chloride Carbon Dioxide 7 L* BUN 51 H Creatinine 5.9 H Glucose 255 H 224 H POC Glucose Lactic Acid 15.40 H* Calcium Phosphorus Magnesium AST ALT Lactate Dehydrogenase 958 H Total Creatine Kinase CK-MB (CK-2) CK-MB (CK-2) Rel Index Troponin T C-Reactive Protein 6.60 H NT-Pro-B Natriuret Pep Triglycerides HDL Cholesterol Vitamin B12 Urine WBC (Auto) Urine Creatinine Urine Total Protein Crossmatch 12/02/21 12/02/21 12/02/21 10:53 13:51 13:51 WBC RBC Hgb Hct MCHC RDW Lymph % (Auto) Day % (Auto) Lymph # (Auto) Day # (Auto) Seg Neutrophils % Lymphocytes % (Manual) Seg Neutrophils # Lymphocytes # (Manual) PT INR D-Dimer ABG pH POC ABG pCO2 POC ABG pO2 ABG pO2 ABG HCO3 ABG O2 Saturation ABG Base Excess ABG Hemoglobin ABG Oxyhemoglobin VBG pH Oxyhemoglobin Carboxyhemoglobin Sodium Potassium Chloride Carbon Dioxide BUN Creatinine Glucose POC Glucose 194 H Lactic Acid 11.70 H* Calcium Phosphorus Magnesium AST ALT Lactate Dehydrogenase Total Creatine Kinase CK-MB (CK-2) CK-MB (CK-2) Rel Index Troponin T 2.500 H* C-Reactive Protein NT-Pro-B Natriuret Pep Triglycerides HDL Cholesterol Vitamin B12 Urine WBC (Auto) Urine Creatinine Urine Total Protein Crossmatch 12/02/21 12/02/21 12/02/21 20:31 22:56 22:56 WBC RBC Hgb Hct MCHC RDW Lymph % (Auto) Day % (Auto) Lymph # (Auto) Day # (Auto) Seg Neutrophils % Lymphocytes % (Manual) Seg Neutrophils # Lymphocytes # (Manual) PT INR D-Dimer ABG pH POC ABG pCO2 POC ABG pO2 ABG pO2 156.2 H ABG HCO3 15.4 L ABG O2 Saturation ABG Base Excess -8.7 L ABG Hemoglobin ABG Oxyhemoglobin VBG pH Oxyhemoglobin Carboxyhemoglobin Sodium 147 H Potassium 3.4 L Chloride Carbon Dioxide 18 L D BUN 59 H Creatinine 6.2 H Glucose 150 H POC Glucose Lactic Acid 6.10 H* Calcium 8.3 L Phosphorus Magnesium AST ALT Lactate Dehydrogenase Total Creatine Kinase CK-MB (CK-2) CK-MB (CK-2) Rel Index Troponin T C-Reactive Protein NT-Pro-B Natriuret Pep Triglycerides HDL Cholesterol Vitamin B12 Urine WBC (Auto) Urine Creatinine Urine Total Protein Crossmatch 12/03/21 12/03/21 12/03/21 00:25 00:42 04:00 WBC RBC Hgb Hct MCHC RDW 15.4 H Lymph % (Auto) Day % (Auto) Lymph # (Auto) Day # (Auto) Seg Neutrophils % Lymphocytes % (Manual) 7.0 L Seg Neutrophils # Lymphocytes # (Manual) 0.4 L PT INR D-Dimer ABG pH POC ABG pCO2 POC ABG pO2 ABG pO2 ABG HCO3 ABG O2 Saturation ABG Base Excess ABG Hemoglobin ABG Oxyhemoglobin VBG pH Oxyhemoglobin Carboxyhemoglobin Sodium Potassium Chloride Carbon Dioxide BUN Creatinine Glucose POC Glucose 150 H Lactic Acid 5.80 H* Calcium Phosphorus Magnesium AST ALT Lactate Dehydrogenase Total Creatine Kinase CK-MB (CK-2) CK-MB (CK-2) Rel Index Troponin T C-Reactive Protein NT-Pro-B Natriuret Pep Triglycerides HDL Cholesterol Vitamin B12 Urine WBC (Auto) Urine Creatinine Urine Total Protein Crossmatch 12/03/21 12/03/21 12/03/21 04:00 06:14 08:35 WBC RBC Hgb Hct MCHC RDW Lymph % (Auto) Day % (Auto) Lymph # (Auto) Day # (Auto) Seg Neutrophils % Lymphocytes % (Manual) Seg Neutrophils # Lymphocytes # (Manual) PT INR D-Dimer ABG pH 7.533 H POC ABG pCO2 POC ABG pO2 ABG pO2 120.9 H ABG HCO3 ABG O2 Saturation ABG Base Excess ABG Hemoglobin 11.9 L ABG Oxyhemoglobin VBG pH Oxyhemoglobin Carboxyhemoglobin Sodium Potassium 3.5 L Chloride Carbon Dioxide 21 L BUN 63 H Creatinine 6.3 H Glucose 158 H POC Glucose 145 H Lactic Acid Calcium 7.9 L Phosphorus Magnesium AST ALT Lactate Dehydrogenase Total Creatine Kinase CK-MB (CK-2) CK-MB (CK-2) Rel Index Troponin T C-Reactive Protein NT-Pro-B Natriuret Pep Triglycerides HDL Cholesterol Vitamin B12 Urine WBC (Auto) Urine Creatinine Urine Total Protein Crossmatch 12/03/21 12/03/21 12/03/21 12:35 13:48 15:51 WBC RBC Hgb Hct MCHC RDW Lymph % (Auto) Day % (Auto) Lymph # (Auto) Day # (Auto) Seg Neutrophils % Lymphocytes % (Manual) Seg Neutrophils # Lymphocytes # (Manual) PT INR D-Dimer ABG pH POC ABG pCO2 POC ABG pO2 ABG pO2 ABG HCO3 ABG O2 Saturation ABG Base Excess ABG Hemoglobin ABG Oxyhemoglobin VBG pH Oxyhemoglobin Carboxyhemoglobin Sodium Potassium Chloride Carbon Dioxide BUN Creatinine Glucose POC Glucose 151 H 168 H Lactic Acid Calcium Phosphorus Magnesium AST ALT Lactate Dehydrogenase Total Creatine Kinase CK-MB (CK-2) CK-MB (CK-2) Rel Index Troponin T C-Reactive Protein NT-Pro-B Natriuret Pep Triglycerides HDL Cholesterol Vitamin B12 Urine WBC (Auto) 9.0 H Urine Creatinine Urine Total Protein Crossmatch 12/03/21 12/03/21 12/03/21 16:20 16:35 23:21 WBC RBC Hgb Hct MCHC RDW Lymph % (Auto) Day % (Auto) Lymph # (Auto) Day # (Auto) Seg Neutrophils % Lymphocytes % (Manual) Seg Neutrophils # Lymphocytes # (Manual) PT INR D-Dimer ABG pH POC ABG pCO2 POC ABG pO2 ABG pO2 ABG HCO3 ABG O2 Saturation ABG Base Excess ABG Hemoglobin ABG Oxyhemoglobin VBG pH Oxyhemoglobin Carboxyhemoglobin Sodium Potassium Chloride 92.3 L Carbon Dioxide BUN 67 H Creatinine 7.1 H Glucose 160 H POC Glucose 158 H 161 H Lactic Acid Calcium 7.3 L Phosphorus Magnesium AST ALT Lactate Dehydrogenase Total Creatine Kinase CK-MB (CK-2) CK-MB (CK-2) Rel Index Troponin T C-Reactive Protein NT-Pro-B Natriuret Pep Triglycerides HDL Cholesterol Vitamin B12 Urine WBC (Auto) Urine Creatinine Urine Total Protein Crossmatch 12/04/21 12/04/21 12/04/21 04:18 04:18 04:18 WBC RBC 3.29 L Hgb 10.0 L Hct 28.4 L D MCHC 35 H RDW 15.4 H Lymph % (Auto) Day % (Auto) Lymph # (Auto) Day # (Auto) Seg Neutrophils % Lymphocytes % (Manual) Seg Neutrophils # Lymphocytes # (Manual) PT INR D-Dimer ABG pH POC ABG pCO2 POC ABG pO2 ABG pO2 ABG HCO3 ABG O2 Saturation ABG Base Excess ABG Hemoglobin ABG Oxyhemoglobin VBG pH Oxyhemoglobin Carboxyhemoglobin Sodium Potassium 3.5 L Chloride 91.5 L Carbon Dioxide 33 H D BUN 74 H Creatinine 7.5 H Glucose 155 H POC Glucose Lactic Acid 4.60 H* Calcium 7.2 L Phosphorus 4.60 H Magnesium AST ALT Lactate Dehydrogenase Total Creatine Kinase CK-MB (CK-2) CK-MB (CK-2) Rel Index Troponin T C-Reactive Protein NT-Pro-B Natriuret Pep Triglycerides HDL Cholesterol Vitamin B12 Urine WBC (Auto) Urine Creatinine Urine Total Protein Crossmatch 12/04/21 12/04/21 12/04/21 10:29 11:08 15:46 WBC RBC Hgb Hct MCHC RDW Lymph % (Auto) Day % (Auto) Lymph # (Auto) Day # (Auto) Seg Neutrophils % Lymphocytes % (Manual) Seg Neutrophils # Lymphocytes # (Manual) PT INR D-Dimer ABG pH 7.504 H POC ABG pCO2 POC ABG pO2 ABG pO2 40.8 L ABG HCO3 30.1 H ABG O2 Saturation 75.1 L ABG Base Excess 6.6 H ABG Hemoglobin 10.2 L ABG Oxyhemoglobin VBG pH Oxyhemoglobin 73.7 L Carboxyhemoglobin Sodium Potassium Chloride Carbon Dioxide BUN Creatinine Glucose POC Glucose 146 H 155 H Lactic Acid Calcium Phosphorus Magnesium AST ALT Lactate Dehydrogenase Total Creatine Kinase CK-MB (CK-2) CK-MB (CK-2) Rel Index Troponin T C-Reactive Protein NT-Pro-B Natriuret Pep Triglycerides HDL Cholesterol Vitamin B12 Urine WBC (Auto) Urine Creatinine Urine Total Protein Crossmatch 12/04/21 12/05/21 12/05/21 23:30 04:22 04:22 WBC 12.7 H RBC 3.33 L Hgb 9.6 L Hct 29.3 L MCHC RDW 15.5 H Lymph % (Auto) Day % (Auto) Lymph # (Auto) Day # (Auto) Seg Neutrophils % Lymphocytes % (Manual) Seg Neutrophils # Lymphocytes # (Manual) PT INR D-Dimer ABG pH POC ABG pCO2 POC ABG pO2 ABG pO2 ABG HCO3 ABG O2 Saturation ABG Base Excess ABG Hemoglobin ABG Oxyhemoglobin VBG pH Oxyhemoglobin Carboxyhemoglobin Sodium Potassium Chloride 90.3 L Carbon Dioxide BUN 89 H Creatinine 8.8 H Glucose 216 H POC Glucose 183 H Lactic Acid Calcium 8.0 L Phosphorus 4.60 H Magnesium AST ALT Lactate Dehydrogenase Total Creatine Kinase CK-MB (CK-2) CK-MB (CK-2) Rel Index Troponin T C-Reactive Protein NT-Pro-B Natriuret Pep Triglycerides 280 H HDL Cholesterol Vitamin B12 Urine WBC (Auto) Urine Creatinine Urine Total Protein Crossmatch 12/05/21 12/05/21 12/05/21 10:15 10:54 11:57 WBC RBC Hgb Hct MCHC RDW Lymph % (Auto) Day % (Auto) Lymph # (Auto) Day # (Auto) Seg Neutrophils % Lymphocytes % (Manual) Seg Neutrophils # Lymphocytes # (Manual) PT INR D-Dimer ABG pH 7.518 H POC ABG pCO2 POC ABG pO2 ABG pO2 43.4 L ABG HCO3 28.8 H ABG O2 Saturation 78.6 L ABG Base Excess 5.6 H ABG Hemoglobin 8.4 L ABG Oxyhemoglobin VBG pH Oxyhemoglobin 77.1 L Carboxyhemoglobin Sodium Potassium Chloride Carbon Dioxide BUN Creatinine Glucose POC Glucose 187 H 196 H Lactic Acid Calcium Phosphorus Magnesium AST ALT Lactate Dehydrogenase Total Creatine Kinase CK-MB (CK-2) CK-MB (CK-2) Rel Index Troponin T C-Reactive Protein NT-Pro-B Natriuret Pep Triglycerides HDL Cholesterol Vitamin B12 Urine WBC (Auto) Urine Creatinine Urine Total Protein Crossmatch 12/05/21 12/05/21 12/05/21 16:34 18:02 23:39 WBC RBC Hgb Hct MCHC RDW Lymph % (Auto) Day % (Auto) Lymph # (Auto) Day # (Auto) Seg Neutrophils % Lymphocytes % (Manual) Seg Neutrophils # Lymphocytes # (Manual) PT INR D-Dimer ABG pH POC ABG pCO2 POC ABG pO2 ABG pO2 ABG HCO3 ABG O2 Saturation ABG Base Excess ABG Hemoglobin ABG Oxyhemoglobin VBG pH Oxyhemoglobin Carboxyhemoglobin Sodium Potassium Chloride Carbon Dioxide BUN Creatinine Glucose POC Glucose 178 H 167 H 235 H Lactic Acid Calcium Phosphorus Magnesium AST ALT Lactate Dehydrogenase Total Creatine Kinase CK-MB (CK-2) CK-MB (CK-2) Rel Index Troponin T C-Reactive Protein NT-Pro-B Natriuret Pep Triglycerides HDL Cholesterol Vitamin B12 Urine WBC (Auto) Urine Creatinine Urine Total Protein Crossmatch 12/06/21 12/06/21 12/06/21 04:35 04:35 05:37 WBC 11.8 H RBC 2.99 L Hgb 8.9 L Hct 26.1 L MCHC RDW Lymph % (Auto) Day % (Auto) Lymph # (Auto) Day # (Auto) Seg Neutrophils % Lymphocytes % (Manual) Seg Neutrophils # Lymphocytes # (Manual) PT INR D-Dimer ABG pH POC ABG pCO2 POC ABG pO2 ABG pO2 ABG HCO3 ABG O2 Saturation ABG Base Excess ABG Hemoglobin ABG Oxyhemoglobin VBG pH Oxyhemoglobin Carboxyhemoglobin Sodium Potassium Chloride 95.0 L Carbon Dioxide BUN 59 H Creatinine 6.3 H Glucose 244 H POC Glucose 251 H Lactic Acid Calcium Phosphorus Magnesium AST ALT Lactate Dehydrogenase Total Creatine Kinase CK-MB (CK-2) CK-MB (CK-2) Rel Index Troponin T C-Reactive Protein NT-Pro-B Natriuret Pep Triglycerides HDL Cholesterol Vitamin B12 Urine WBC (Auto) Urine Creatinine Urine Total Protein Crossmatch 12/06/21 12/06/21 12/06/21 06:05 11:45 17:19 WBC RBC Hgb Hct MCHC RDW Lymph % (Auto) Day % (Auto) Lymph # (Auto) Day # (Auto) Seg Neutrophils % Lymphocytes % (Manual) Seg Neutrophils # Lymphocytes # (Manual) PT INR D-Dimer ABG pH 7.555 H POC ABG pCO2 POC ABG pO2 ABG pO2 95.3 H ABG HCO3 27.3 H ABG O2 Saturation ABG Base Excess 4.9 H ABG Hemoglobin 9.0 L ABG Oxyhemoglobin VBG pH Oxyhemoglobin Carboxyhemoglobin Sodium Potassium Chloride Carbon Dioxide BUN Creatinine Glucose POC Glucose 249 H 187 H Lactic Acid Calcium Phosphorus Magnesium AST ALT Lactate Dehydrogenase Total Creatine Kinase CK-MB (CK-2) CK-MB (CK-2) Rel Index Troponin T C-Reactive Protein NT-Pro-B Natriuret Pep Triglycerides HDL Cholesterol Vitamin B12 Urine WBC (Auto) Urine Creatinine Urine Total Protein Crossmatch 12/06/21 12/07/21 12/07/21 23:24 04:00 04:00 WBC RBC 3.10 L Hgb 8.8 L Hct 27.5 L MCHC RDW 15.8 H Lymph % (Auto) Day % (Auto) Lymph # (Auto) Day # (Auto) Seg Neutrophils % Lymphocytes % (Manual) Seg Neutrophils # Lymphocytes # (Manual) PT INR D-Dimer ABG pH POC ABG pCO2 POC ABG pO2 ABG pO2 ABG HCO3 ABG O2 Saturation ABG Base Excess ABG Hemoglobin ABG Oxyhemoglobin VBG pH Oxyhemoglobin Carboxyhemoglobin Sodium Potassium Chloride Carbon Dioxide BUN 50 H Creatinine 5.5 H Glucose 248 H POC Glucose 233 H Lactic Acid Calcium Phosphorus Magnesium AST ALT Lactate Dehydrogenase Total Creatine Kinase CK-MB (CK-2) CK-MB (CK-2) Rel Index Troponin T C-Reactive Protein NT-Pro-B Natriuret Pep Triglycerides HDL Cholesterol Vitamin B12 Urine WBC (Auto) Urine Creatinine Urine Total Protein Crossmatch 12/07/21 12/07/21 12/07/21 04:55 05:40 10:49 WBC RBC Hgb Hct MCHC RDW Lymph % (Auto) Day % (Auto) Lymph # (Auto) Day # (Auto) Seg Neutrophils % Lymphocytes % (Manual) Seg Neutrophils # Lymphocytes # (Manual) PT INR D-Dimer ABG pH 7.519 H POC ABG pCO2 POC ABG pO2 ABG pO2 65.4 L ABG HCO3 27.1 H ABG O2 Saturation ABG Base Excess 4.1 H ABG Hemoglobin 8.3 L ABG Oxyhemoglobin VBG pH Oxyhemoglobin 94.9 L Carboxyhemoglobin Sodium Potassium Chloride Carbon Dioxide BUN Creatinine Glucose POC Glucose 230 H 215 H Lactic Acid Calcium Phosphorus Magnesium AST ALT Lactate Dehydrogenase Total Creatine Kinase CK-MB (CK-2) CK-MB (CK-2) Rel Index Troponin T C-Reactive Protein NT-Pro-B Natriuret Pep Triglycerides HDL Cholesterol Vitamin B12 Urine WBC (Auto) Urine Creatinine Urine Total Protein Crossmatch 12/07/21 12/07/21 12/08/21 15:53 23:33 04:00 WBC 14.6 H RBC 2.91 L Hgb 8.9 L Hct 25.6 L MCHC 35 H RDW 15.6 H Lymph % (Auto) Day % (Auto) Lymph # (Auto) Day # (Auto) Seg Neutrophils % Lymphocytes % (Manual) Seg Neutrophils # Lymphocytes # (Manual) PT INR D-Dimer ABG pH POC ABG pCO2 POC ABG pO2 ABG pO2 ABG HCO3 ABG O2 Saturation ABG Base Excess ABG Hemoglobin ABG Oxyhemoglobin VBG pH Oxyhemoglobin Carboxyhemoglobin Sodium Potassium Chloride Carbon Dioxide BUN Creatinine Glucose POC Glucose 167 H 206 H Lactic Acid Calcium Phosphorus Magnesium AST ALT Lactate Dehydrogenase Total Creatine Kinase CK-MB (CK-2) CK-MB (CK-2) Rel Index Troponin T C-Reactive Protein NT-Pro-B Natriuret Pep Triglycerides HDL Cholesterol Vitamin B12 Urine WBC (Auto) Urine Creatinine Urine Total Protein Crossmatch 12/08/21 12/08/21 12/08/21 04:00 04:10 05:15 WBC RBC Hgb Hct MCHC RDW Lymph % (Auto) Day % (Auto) Lymph # (Auto) Day # (Auto) Seg Neutrophils % Lymphocytes % (Manual) Seg Neutrophils # Lymphocytes # (Manual) PT INR D-Dimer ABG pH 7.511 H POC ABG pCO2 POC ABG pO2 ABG pO2 77.8 L ABG HCO3 ABG O2 Saturation ABG Base Excess ABG Hemoglobin 9.0 L ABG Oxyhemoglobin VBG pH Oxyhemoglobin Carboxyhemoglobin Sodium Potassium Chloride 96.3 L Carbon Dioxide BUN 80 H Creatinine 6.4 H Glucose 223 H POC Glucose 193 H Lactic Acid Calcium Phosphorus Magnesium 2.50 H AST ALT Lactate Dehydrogenase Total Creatine Kinase CK-MB (CK-2) CK-MB (CK-2) Rel Index Troponin T C-Reactive Protein NT-Pro-B Natriuret Pep Triglycerides HDL Cholesterol Vitamin B12 Urine WBC (Auto) Urine Creatinine Urine Total Protein Crossmatch 12/08/21 12/08/21 12/08/21 11:29 16:53 19:56 WBC RBC Hgb Hct MCHC RDW Lymph % (Auto) Day % (Auto) Lymph # (Auto) Day # (Auto) Seg Neutrophils % Lymphocytes % (Manual) Seg Neutrophils # Lymphocytes # (Manual) PT INR D-Dimer ABG pH POC ABG pCO2 POC ABG pO2 ABG pO2 ABG HCO3 ABG O2 Saturation ABG Base Excess ABG Hemoglobin ABG Oxyhemoglobin VBG pH Oxyhemoglobin Carboxyhemoglobin Sodium Potassium Chloride Carbon Dioxide BUN Creatinine Glucose POC Glucose 202 H 240 H 236 H Lactic Acid Calcium Phosphorus Magnesium AST ALT Lactate Dehydrogenase Total Creatine Kinase CK-MB (CK-2) CK-MB (CK-2) Rel Index Troponin T C-Reactive Protein NT-Pro-B Natriuret Pep Triglycerides HDL Cholesterol Vitamin B12 Urine WBC (Auto) Urine Creatinine Urine Total Protein Crossmatch 12/09/21 12/09/21 12/09/21 00:16 04:20 04:20 WBC 16.4 H RBC 2.91 L Hgb 8.7 L Hct 25.9 L MCHC RDW 15.9 H Lymph % (Auto) Day % (Auto) Lymph # (Auto) Day # (Auto) Seg Neutrophils % Lymphocytes % (Manual) Seg Neutrophils # Lymphocytes # (Manual) PT INR D-Dimer ABG pH POC ABG pCO2 POC ABG pO2 ABG pO2 ABG HCO3 ABG O2 Saturation ABG Base Excess ABG Hemoglobin ABG Oxyhemoglobin VBG pH Oxyhemoglobin Carboxyhemoglobin Sodium Potassium Chloride Carbon Dioxide BUN 58 H Creatinine 4.5 H Glucose 235 H POC Glucose 243 H Lactic Acid Calcium Phosphorus 2.40 L D Magnesium AST ALT Lactate Dehydrogenase Total Creatine Kinase CK-MB (CK-2) CK-MB (CK-2) Rel Index Troponin T C-Reactive Protein NT-Pro-B Natriuret Pep Triglycerides HDL Cholesterol Vitamin B12 Urine WBC (Auto) Urine Creatinine Urine Total Protein Crossmatch 12/09/21 12/09/21 12/09/21 05:19 08:45 11:47 WBC RBC Hgb Hct MCHC RDW Lymph % (Auto) Day % (Auto) Lymph # (Auto) Day # (Auto) Seg Neutrophils % Lymphocytes % (Manual) Seg Neutrophils # Lymphocytes # (Manual) PT INR D-Dimer ABG pH 7.511 H POC ABG pCO2 POC ABG pO2 ABG pO2 74.1 L ABG HCO3 ABG O2 Saturation ABG Base Excess ABG Hemoglobin 6.4 L ABG Oxyhemoglobin VBG pH Oxyhemoglobin Carboxyhemoglobin Sodium Potassium Chloride Carbon Dioxide BUN Creatinine Glucose POC Glucose 217 H 195 H Lactic Acid Calcium Phosphorus Magnesium AST ALT Lactate Dehydrogenase Total Creatine Kinase CK-MB (CK-2) CK-MB (CK-2) Rel Index Troponin T C-Reactive Protein NT-Pro-B Natriuret Pep Triglycerides HDL Cholesterol Vitamin B12 Urine WBC (Auto) Urine Creatinine Urine Total Protein Crossmatch 12/09/21 12/09/21 12/09/21 16:58 21:29 23:16 WBC RBC Hgb Hct MCHC RDW Lymph % (Auto) Day % (Auto) Lymph # (Auto) Day # (Auto) Seg Neutrophils % Lymphocytes % (Manual) Seg Neutrophils # Lymphocytes # (Manual) PT INR D-Dimer ABG pH POC ABG pCO2 POC ABG pO2 ABG pO2 ABG HCO3 ABG O2 Saturation ABG Base Excess ABG Hemoglobin ABG Oxyhemoglobin VBG pH Oxyhemoglobin Carboxyhemoglobin Sodium Potassium Chloride Carbon Dioxide BUN Creatinine Glucose POC Glucose 168 H 224 H 215 H Lactic Acid Calcium Phosphorus Magnesium AST ALT Lactate Dehydrogenase Total Creatine Kinase CK-MB (CK-2) CK-MB (CK-2) Rel Index Troponin T C-Reactive Protein NT-Pro-B Natriuret Pep Triglycerides HDL Cholesterol Vitamin B12 Urine WBC (Auto) Urine Creatinine Urine Total Protein Crossmatch 12/10/21 12/10/21 12/10/21 04:30 04:30 05:11 WBC 18.2 H RBC 2.72 L Hgb 7.9 L Hct 24.4 L MCHC RDW 16.0 H Lymph % (Auto) Day % (Auto) Lymph # (Auto) Day # (Auto) Seg Neutrophils % Lymphocytes % (Manual) Seg Neutrophils # Lymphocytes # (Manual) PT INR D-Dimer ABG pH POC ABG pCO2 POC ABG pO2 ABG pO2 ABG HCO3 ABG O2 Saturation ABG Base Excess ABG Hemoglobin ABG Oxyhemoglobin VBG pH Oxyhemoglobin Carboxyhemoglobin Sodium Potassium Chloride Carbon Dioxide 15 L D BUN 96 H Creatinine 6.1 H Glucose 215 H POC Glucose 183 H Lactic Acid Calcium 8.2 L Phosphorus 6.70 H D Magnesium AST ALT Lactate Dehydrogenase Total Creatine Kinase CK-MB (CK-2) CK-MB (CK-2) Rel Index Troponin T C-Reactive Protein NT-Pro-B Natriuret Pep Triglycerides HDL Cholesterol Vitamin B12 Urine WBC (Auto) Urine Creatinine Urine Total Protein Crossmatch 12/10/21 12/10/21 12/10/21 10:52 14:29 15:49 WBC RBC Hgb Hct MCHC RDW Lymph % (Auto) Day % (Auto) Lymph # (Auto) Day # (Auto) Seg Neutrophils % Lymphocytes % (Manual) Seg Neutrophils # Lymphocytes # (Manual) PT INR D-Dimer ABG pH POC ABG pCO2 POC ABG pO2 ABG pO2 ABG HCO3 ABG O2 Saturation ABG Base Excess ABG Hemoglobin ABG Oxyhemoglobin VBG pH Oxyhemoglobin Carboxyhemoglobin Sodium Potassium Chloride Carbon Dioxide BUN Creatinine Glucose POC Glucose 179 H 222 H Lactic Acid 3.90 H* Calcium Phosphorus Magnesium AST ALT Lactate Dehydrogenase Total Creatine Kinase CK-MB (CK-2) CK-MB (CK-2) Rel Index Troponin T C-Reactive Protein NT-Pro-B Natriuret Pep Triglycerides HDL Cholesterol Vitamin B12 Urine WBC (Auto) Urine Creatinine Urine Total Protein Crossmatch 12/10/21 12/10/21 12/11/21 21:02 23:06 04:33 WBC 16.7 H RBC 2.59 L Hgb 7.3 L Hct 23.3 L MCHC RDW 16.2 H Lymph % (Auto) Day % (Auto) Lymph # (Auto) Day # (Auto) Seg Neutrophils % Lymphocytes % (Manual) Seg Neutrophils # Lymphocytes # (Manual) PT INR D-Dimer ABG pH POC ABG pCO2 POC ABG pO2 ABG pO2 ABG HCO3 ABG O2 Saturation ABG Base Excess ABG Hemoglobin ABG Oxyhemoglobin VBG pH Oxyhemoglobin Carboxyhemoglobin Sodium Potassium Chloride Carbon Dioxide BUN Creatinine Glucose POC Glucose 238 H 241 H Lactic Acid Calcium Phosphorus Magnesium AST ALT Lactate Dehydrogenase Total Creatine Kinase CK-MB (CK-2) CK-MB (CK-2) Rel Index Troponin T C-Reactive Protein NT-Pro-B Natriuret Pep Triglycerides HDL Cholesterol Vitamin B12 Urine WBC (Auto) Urine Creatinine Urine Total Protein Crossmatch 12/11/21 12/11/21 12/11/21 04:33 04:33 05:05 WBC RBC Hgb Hct MCHC RDW Lymph % (Auto) Day % (Auto) Lymph # (Auto) Day # (Auto) Seg Neutrophils % Lymphocytes % (Manual) Seg Neutrophils # Lymphocytes # (Manual) PT INR D-Dimer ABG pH POC ABG pCO2 POC ABG pO2 ABG pO2 ABG HCO3 ABG O2 Saturation ABG Base Excess ABG Hemoglobin ABG Oxyhemoglobin VBG pH Oxyhemoglobin Carboxyhemoglobin Sodium Potassium Chloride 97.5 L Carbon Dioxide 13 L BUN 76 H Creatinine 5.4 H Glucose 182 H POC Glucose 157 H Lactic Acid Calcium 7.6 L Phosphorus 6.00 H Magnesium AST ALT Lactate Dehydrogenase Total Creatine Kinase CK-MB (CK-2) CK-MB (CK-2) Rel Index Troponin T C-Reactive Protein NT-Pro-B Natriuret Pep Triglycerides HDL Cholesterol Vitamin B12 > 2000 H Urine WBC (Auto) Urine Creatinine Urine Total Protein Crossmatch 12/11/21 12/11/21 12/11/21 10:59 15:55 21:01 WBC RBC Hgb Hct MCHC RDW Lymph % (Auto) Day % (Auto) Lymph # (Auto) Day # (Auto) Seg Neutrophils % Lymphocytes % (Manual) Seg Neutrophils # Lymphocytes # (Manual) PT INR D-Dimer ABG pH POC ABG pCO2 POC ABG pO2 ABG pO2 ABG HCO3 ABG O2 Saturation ABG Base Excess ABG Hemoglobin ABG Oxyhemoglobin VBG pH Oxyhemoglobin Carboxyhemoglobin Sodium Potassium Chloride Carbon Dioxide BUN Creatinine Glucose POC Glucose 170 H 183 H 130 H Lactic Acid Calcium Phosphorus Magnesium AST ALT Lactate Dehydrogenase Total Creatine Kinase CK-MB (CK-2) CK-MB (CK-2) Rel Index Troponin T C-Reactive Protein NT-Pro-B Natriuret Pep Triglycerides HDL Cholesterol Vitamin B12 Urine WBC (Auto) Urine Creatinine Urine Total Protein Crossmatch 12/11/21 12/11/21 12/12/21 23:30 23:50 04:35 WBC RBC Hgb Hct MCHC RDW Lymph % (Auto) Day % (Auto) Lymph # (Auto) Day # (Auto) Seg Neutrophils % Lymphocytes % (Manual) Seg Neutrophils # Lymphocytes # (Manual) PT INR D-Dimer ABG pH 7.315 L POC ABG pCO2 16.0 L POC ABG pO2 185.0 H ABG pO2 ABG HCO3 ABG O2 Saturation ABG Base Excess ABG Hemoglobin 7.7 L ABG Oxyhemoglobin 98.9 H VBG pH Oxyhemoglobin Carboxyhemoglobin 0.2 L Sodium Potassium Chloride Carbon Dioxide BUN Creatinine Glucose POC Glucose 144 H 25 L Lactic Acid Calcium Phosphorus Magnesium AST ALT Lactate Dehydrogenase Total Creatine Kinase CK-MB (CK-2) CK-MB (CK-2) Rel Index Troponin T C-Reactive Protein NT-Pro-B Natriuret Pep Triglycerides HDL Cholesterol Vitamin B12 Urine WBC (Auto) Urine Creatinine Urine Total Protein Crossmatch 12/12/21 12/12/21 12/12/21 05:15 05:24 05:27 WBC 21.2 H RBC 2.32 L Hgb 6.8 L Hct 22.3 L MCHC RDW 17.6 H Lymph % (Auto) Day % (Auto) Lymph # (Auto) Day # (Auto) Seg Neutrophils % Lymphocytes % (Manual) Seg Neutrophils # Lymphocytes # (Manual) PT INR D-Dimer ABG pH POC ABG pCO2 POC ABG pO2 ABG pO2 ABG HCO3 ABG O2 Saturation ABG Base Excess ABG Hemoglobin ABG Oxyhemoglobin VBG pH Oxyhemoglobin Carboxyhemoglobin Sodium Potassium Chloride Carbon Dioxide BUN Creatinine Glucose POC Glucose < 10 L < 10 L Lactic Acid Calcium Phosphorus Magnesium AST ALT Lactate Dehydrogenase Total Creatine Kinase CK-MB (CK-2) CK-MB (CK-2) Rel Index Troponin T C-Reactive Protein NT-Pro-B Natriuret Pep Triglycerides HDL Cholesterol Vitamin B12 Urine WBC (Auto) Urine Creatinine Urine Total Protein Crossmatch 12/12/21 12/12/21 12/12/21 06:30 08:23 08:23 WBC RBC Hgb Hct MCHC RDW Lymph % (Auto) Day % (Auto) Lymph # (Auto) Day # (Auto) Seg Neutrophils % Lymphocytes % (Manual) Seg Neutrophils # Lymphocytes # (Manual) PT INR D-Dimer ABG pH POC ABG pCO2 POC ABG pO2 ABG pO2 ABG HCO3 ABG O2 Saturation ABG Base Excess ABG Hemoglobin ABG Oxyhemoglobin VBG pH Oxyhemoglobin Carboxyhemoglobin Sodium 147 H Potassium 6.2 H* D Chloride 93.1 L Carbon Dioxide 6 L* D BUN 97 H Creatinine 6.8 H Glucose 64 L POC Glucose < 10 L Lactic Acid Calcium 7.5 L Phosphorus Magnesium AST ALT Lactate Dehydrogenase Total Creatine Kinase CK-MB (CK-2) CK-MB (CK-2) Rel Index Troponin T C-Reactive Protein NT-Pro-B Natriuret Pep Triglycerides HDL Cholesterol Vitamin B12 Urine WBC (Auto) Urine Creatinine Urine Total Protein Crossmatch See Detail
[2021-12-12] MEDS ORDERED: D10W 500 ML IV SOLN IV SCH (12:00)
--- NOTE | 2021-12-12 12:01 | Progress Note ---
Assessment and Plan Cultures: 12/02/2021 blood culture: no growth COVID-19 PCR: negative 12/02/2021 sputum culture: Usual respiratory mahesh 12/02/2021 urine culture: no growth 12/11/2021 tracheal aspirate: Gram stain with multiple GNR A/P: 86-year-old female with hypertension, diabetes, peripheral vascular disease, prior right AKA was admitted with shortness of breath: #Refractory septic shock, likely secondary to pneumonia v/s fluid overload, acute respiratory failure: remains on the vent. #Severe metabolic acidosis, lactic acidosis #Acute renal failure: Renally adjust antibiotics. Nephrology on board for HD. #Acute encephalopathy: ? metabolic. Neurology on board. Recs: -continue IV cefepime, renally adjusted -Extremely poor prognosis, explained to both granddaughters at bedside. Patient is DNR Elizabeth Lane MD, FACP, [facility] ([facility] O: [phone] F: [phone] C: [phone] Subjective Date of service: 12/12/21 Principal diagnosis: AHRF; Pulm Edema;Pneumonia; Sepsis; Met. acidosis; Acute Kidney Injury; HTN Interval history: Remains critically ill, on multiple pressors, 100% FiO2. 2 granddaughters at bedside. Hypoxic, on the vent. Objective - Exam Narrative Exam: Physical Exam: Constitutional: intubated, on the vent Head, Ears, Nose: Normocephalic, atraumatic. External ears, nose normal Eyes: Conjunctivae/corneas clear. No icterus. No ptosis. Neck: intubated Oral: intubated Cardiovascular: S1, S2 + Respiratory: AE fair bilaterally and equal GI: Soft, bowel sounds absent Musculoskeletal: No pedal edema, no cyanosis. R AKA well healed Skin: No rash or abscess Hem/Lymphatic: No palpable cervical or supraclavicular nodes. No lymphangitis Psych: no agitation Neurological: sedated, intubated, on the vent, exam limited - Constitutional Vitals: Vital Signs Temp Pulse Resp BP Pulse Ox 97.6 F 92 H 24 65/44 64 L 12/12/21 04:00 12/12/21 11:00 12/12/21 08:00 12/12/21 11:00 12/12/21 11:00 Temperature -Last 24 Hours Temperature 97.6 F Temperature 98.2 F Temperature 99.5 F Temperature 98.2 F Temperature 98.1 F - Labs CBC & Chem 7: 12/12/21 05:15 12/12/21 08:23 Labs: Abnormal lab results 12/11/21 12/11/21 12/11/21 Range/Units 04:33 15:55 21:01 WBC (4.5-11.0) K/mm3 RBC (3.65-5.03) M/mm3 Hgb (10.1-14.3) gm/dl Hct (30.3-42.9) % RDW (13.2-15.2) % ABG pH (7.320-7.450) POC ABG pCO2 (32.0-48.0) mmHg POC ABG pO2 (83-108) mmHg ABG Hemoglobin (12.0-17.5) ABG Oxyhemoglobin (94-98) Carboxyhemoglobin (0.5-1.5) Sodium (137-145) mmol/L Potassium (3.6-5.0) mmol/L Chloride (98-107) mmol/L Carbon Dioxide (22-30) mmol/L BUN (7-17) mg/dL Creatinine (0.6-1.2) mg/dL Glucose (65-100) mg/dL POC Glucose 183 H 130 H (70-105) mg/dL Calcium (8.4-10.2) mg/dL Vitamin B12 > 2000 H (211-911) pg/mL Crossmatch 12/11/21 12/11/21 12/12/21 Range/Units 23:30 23:50 04:35 WBC (4.5-11.0) K/mm3 RBC (3.65-5.03) M/mm3 Hgb (10.1-14.3) gm/dl Hct (30.3-42.9) % RDW (13.2-15.2) % ABG pH 7.315 L (7.320-7.450) POC ABG pCO2 16.0 L (32.0-48.0) mmHg POC ABG pO2 185.0 H (83-108) mmHg ABG Hemoglobin 7.7 L (12.0-17.5) ABG Oxyhemoglobin 98.9 H (94-98) Carboxyhemoglobin 0.2 L (0.5-1.5) Sodium (137-145) mmol/L Potassium (3.6-5.0) mmol/L Chloride (98-107) mmol/L Carbon Dioxide (22-30) mmol/L BUN (7-17) mg/dL Creatinine (0.6-1.2) mg/dL Glucose (65-100) mg/dL POC Glucose 144 H 25 L (70-105) mg/dL Calcium (8.4-10.2) mg/dL Vitamin B12 (211-911) pg/mL Crossmatch 12/12/21 12/12/21 12/12/21 Range/Units 05:15 05:24 05:27 WBC 21.2 H (4.5-11.0) K/mm3 RBC 2.32 L (3.65-5.03) M/mm3 Hgb 6.8 L (10.1-14.3) gm/dl Hct 22.3 L (30.3-42.9) % RDW 17.6 H (13.2-15.2) % ABG pH (7.320-7.450) POC ABG pCO2 (32.0-48.0) mmHg POC ABG pO2 (83-108) mmHg ABG Hemoglobin (12.0-17.5) ABG Oxyhemoglobin (94-98) Carboxyhemoglobin (0.5-1.5) Sodium (137-145) mmol/L Potassium (3.6-5.0) mmol/L Chloride (98-107) mmol/L Carbon Dioxide (22-30) mmol/L BUN (7-17) mg/dL Creatinine (0.6-1.2) mg/dL Glucose (65-100) mg/dL POC Glucose < 10 L < 10 L (70-105) mg/dL Calcium (8.4-10.2) mg/dL Vitamin B12 (211-911) pg/mL Crossmatch 12/12/21 12/12/21 12/12/21 Range/Units 06:30 08:23 08:23 WBC (4.5-11.0) K/mm3 RBC (3.65-5.03) M/mm3 Hgb (10.1-14.3) gm/dl Hct (30.3-42.9) % RDW (13.2-15.2) % ABG pH (7.320-7.450) POC ABG pCO2 (32.0-48.0) mmHg POC ABG pO2 (83-108) mmHg ABG Hemoglobin (12.0-17.5) ABG Oxyhemoglobin (94-98) Carboxyhemoglobin (0.5-1.5) Sodium 147 H (137-145) mmol/L Potassium 6.2 H* D (3.6-5.0) mmol/L Chloride 93.1 L (98-107) mmol/L Carbon Dioxide 6 L* D (22-30) mmol/L BUN 97 H (7-17) mg/dL Creatinine 6.8 H (0.6-1.2) mg/dL Glucose 64 L (65-100) mg/dL POC Glucose < 10 L (70-105) mg/dL Calcium 7.5 L (8.4-10.2) mg/dL Vitamin B12 (211-911) pg/mL Crossmatch See Detail 12/12/21 Range/Units 11:52 WBC (4.5-11.0) K/mm3 RBC (3.65-5.03) M/mm3 Hgb (10.1-14.3) gm/dl Hct (30.3-42.9) % RDW (13.2-15.2) % ABG pH (7.320-7.450) POC ABG pCO2 (32.0-48.0) mmHg POC ABG pO2 (83-108) mmHg ABG Hemoglobin (12.0-17.5) ABG Oxyhemoglobin (94-98) Carboxyhemoglobin (0.5-1.5) Sodium (137-145) mmol/L Potassium (3.6-5.0) mmol/L Chloride (98-107) mmol/L Carbon Dioxide (22-30) mmol/L BUN (7-17) mg/dL Creatinine (0.6-1.2) mg/dL Glucose (65-100) mg/dL POC Glucose < 10 L (70-105) mg/dL Calcium (8.4-10.2) mg/dL Vitamin B12 (211-911) pg/mL Crossmatch
--- NOTE | 2021-12-12 12:07 | Progress Note ---
Assessment and Plan Acute Hypoxemic Respiratory Failure s/p MVS Pulmonary Edema Vs Pneumonia Severe Sepsis Pneumonia Leukocytosis-improved Lactic Acidosis/Metabolic acidosis Acute Kidney Injury(RAYNE) Hypokalemia Acute Metabolic Acidosis Hypertension Elevated BNP Elevated troponin Elevated D-dimer DM II - CT brain negative - begin Midodrine for BP support - neurology consultation - LTAC evaluation - US chest without significant effusion - continue care as below otherwise; - continue HD/UF for toxin and volume clearance - continue daily SAT and SBT assessment as tolerated - continue to wean supplemental oxygen for target O2 sat's > 90% acutely - VAP bundle addressed - continue lung protective strategies - continue bronchodilators with pulmonary hygiene per RT - wean per pulmonary driven protocols otherwise - avoid nephrotoxins, renally dose all medications - continue accuchecks with glycemic control per SSI (While critically ill target blood glucose of 140-180 mg/dL; avoid hypoglycemia) - sedation prn for target RASS 0 to -1 - continue to avoid benzodiazepine's, reduce the possibility of delirium - AB's per ID rec's (Cefepime) - prn analgesia per CPOT score - Maintenance of sleep-wake cycle, avoid delirium - continue enteral nutritional support at goal rate as tolerated - G.I. & VTE prophylaxis - PT/OT/ROM exercises - continue mobility protocols for pressure ulcer prophylaxis - Monitor hemodynamics closely - continue other care per attending / other consultants - discharge planning ongoing concurrently COVID SPECIFIC INTERVENTIONS - COVID-19 PCR negative .... Re-evaluate in am & prn CONDITION: CRITICAL PROGNOSIS: GUARDED CODE STATUS: FULL CODE The high probability of a clinically significant, sudden or life-threatening deterioration of the [respiratory, cardiovascular, renal & neurologic] system(s) required my full and direct attention, intervention and personal management. The aggregate critical care time was [32] minutes without overlap. Time includes spent on; [x] Data Review and interpretation [x] Patient assessment and monitoring of vital signs [x] Documentation [x] Medication orders and management Subjective Date of service: 12/12/21 Principal diagnosis: AHRF; Pulm Edema;Pneumonia; Sepsis; Met. acidosis; Acute Kidney Injury; HTN Interval history: Patient is seen today for: Acute Hypoxemic Respiratory Failure on MVS; Pulm Edema Vs Pneumonia; Severe Sepsis; Metabolic acidosis; Acute Kidney Injury; HTN; DM II Seen and examined at bedside; 24hour events reviewed; nursing and respiratory care staff consulted; no adverse overnight events reported to me; resting peacefully in bed; AMS is persistent; Objective Vital Signs - 12hr 12/12/21 12/12/21 12/12/21 00:15 00:30 00:45 Temperature Pulse Rate 81 85 78 Pulse Rate [ From Monitor] Respiratory Rate Blood Pressure 111/48 104/51 104/51 O2 Sat by Pulse 83 L 45 L 32 L Oximetry 12/12/21 12/12/21 12/12/21 01:01 01:15 01:30 Temperature Pulse Rate 73 94 H 88 Pulse Rate [ From Monitor] Respiratory Rate Blood Pressure 76/38 116/51 107/51 O2 Sat by Pulse 47 L 76 L 73 L Oximetry 12/12/21 12/12/21 12/12/21 01:35 01:44 01:45 Temperature Pulse Rate 94 H 94 H Pulse Rate [ From Monitor] Respiratory Rate Blood Pressure 107/51 126/51 O2 Sat by Pulse 72 L 69 L 76 L Oximetry 12/12/21 12/12/21 12/12/21 02:00 02:15 02:30 Temperature Pulse Rate 95 H 95 H 104 H Pulse Rate [ From Monitor] Respiratory Rate Blood Pressure 127/51 121/54 114/53 O2 Sat by Pulse 78 L 82 L 96 Oximetry 12/12/21 12/12/21 12/12/21 02:45 03:00 03:15 Temperature 98.2 F Pulse Rate 105 H 102 H 100 H Pulse Rate [ From Monitor] Respiratory Rate Blood Pressure 116/57 127/51 102/51 O2 Sat by Pulse 85 88 72 L Oximetry 12/12/21 12/12/21 12/12/21 03:30 03:45 03:55 Temperature Pulse Rate 96 H 97 H 93 H Pulse Rate [ From Monitor] Respiratory Rate Blood Pressure 102/50 102/50 O2 Sat by Pulse 75 L Oximetry 12/12/21 12/12/21 12/12/21 03:58 04:00 04:15 Temperature 97.6 F Pulse Rate 99 H 89 Pulse Rate [ 90 From Monitor] Respiratory 28 H Rate Blood Pressure 91/47 91/47 O2 Sat by Pulse 77 L 79 L 19 L Oximetry 12/12/21 12/12/21 12/12/21 04:31 04:45 04:53 Temperature Pulse Rate 92 H 85 84 Pulse Rate [ From Monitor] Respiratory Rate Blood Pressure 105/43 105/43 97/34 O2 Sat by Pulse 42 L 79 L 82 L Oximetry 12/12/21 12/12/21 12/12/21 05:00 05:15 05:30 Temperature Pulse Rate 82 86 81 Pulse Rate [ From Monitor] Respiratory Rate Blood Pressure 99/38 99/38 92/42 O2 Sat by Pulse 90 80 L 97 Oximetry 12/12/21 12/12/21 12/12/21 05:45 06:00 06:15 Temperature Pulse Rate 82 78 80 Pulse Rate [ From Monitor] Respiratory Rate Blood Pressure 92/42 104/47 104/47 O2 Sat by Pulse 94 94 61 L Oximetry 12/12/21 12/12/21 12/12/21 06:30 06:45 07:00 Temperature Pulse Rate 85 79 81 Pulse Rate [ From Monitor] Respiratory Rate Blood Pressure 116/53 116/53 97/47 O2 Sat by Pulse 56 L 60 L 53 L Oximetry 12/12/21 12/12/21 12/12/21 07:15 07:30 07:45 Temperature Pulse Rate 75 62 76 Pulse Rate [ From Monitor] Respiratory Rate Blood Pressure 97/47 92/43 92/43 O2 Sat by Pulse 57 L 58 L 56 L Oximetry 12/12/21 12/12/21 12/12/21 08:00 08:10 08:15 Temperature Pulse Rate 81 75 65 Pulse Rate [ 71 From Monitor] Respiratory 24 Rate Blood Pressure 77/41 77/41 85/46 O2 Sat by Pulse 52 L 61 L 62 L Oximetry 12/12/21 12/12/21 12/12/21 08:30 08:45 09:00 Temperature Pulse Rate 65 68 81 Pulse Rate [ From Monitor] Respiratory Rate Blood Pressure 74/41 74/41 77/44 O2 Sat by Pulse 64 L 66 L 71 L Oximetry 12/12/21 12/12/21 12/12/21 09:15 09:31 09:45 Temperature Pulse Rate 86 59 L 106 H Pulse Rate [ From Monitor] Respiratory Rate Blood Pressure 77/44 82/43 72/45 O2 Sat by Pulse 71 L 76 L 76 L Oximetry 12/12/21 12/12/21 12/12/21 10:00 10:15 10:30 Temperature Pulse Rate 45 L 98 H 51 L Pulse Rate [ From Monitor] Respiratory Rate Blood Pressure 74/39 74/39 70/35 O2 Sat by Pulse 77 L 63 L Oximetry 12/12/21 12/12/21 10:45 11:00 Temperature Pulse Rate 53 L 92 H Pulse Rate [ From Monitor] Respiratory Rate Blood Pressure 70/35 65/44 O2 Sat by Pulse 63 L 64 L Oximetry Constitutional: no acute distress, other (elderly lady with mild ventilator dyssynchrony at rest) Eyes: non-icteric ENT: oropharynx moist, other (ETT 23 cm CIARAN) Neck: supple, no lymphadenopathy, no JVD Effort: mildly labored Ascultation: Bilateral: rhonchi (bases) Percussion: Bilateral: not dull Cardiovascular: regular rate and rhythm Gastrointestinal: normoactive bowel sounds, soft, non-tender, non-distended Integumentary: rash Extremities: no cyanosis, pulses normal, no ischemia or petechiae Neurologic: pupils equal and round, unable to assess Psychiatric: other (unable to assess re: AMS) CBC and BMP: 12/12/21 05:15 12/12/21 08:23 ABG, PT/INR, D-dimer: ABG ABG pH 7.315 (7.320-7.450) L 12/11/21 23:30 POC ABG pCO2 16.0 mmHg (32.0-48.0) L 12/11/21 23:30 ABG pCO2 30.5 mm Hg 12/09/21 08:45 POC ABG pO2 185.0 mmHg (83-108) H 12/11/21 23:30 ABG pO2 74.1 mm Hg (80.0-90.0) L 12/09/21 08:45 POC ABG HCO3 8 12/11/21 23:30 ABG O2 Saturation 99.4 (0-100) 12/11/21 23:30 PT/INR, D-dimer PT 15.9 Sec. (12.2-14.9) H 12/02/21 01:24 INR 1.15 (0.87-1.13) H 12/02/21 01:24 D-Dimer 1461.68 ng/mlDDU (0-234) H 12/02/21 04:18 Abnormal lab findings: Abnormal Labs 12/02/21 12/02/21 12/02/21 00:52 00:52 01:24 WBC 15.4 H RBC Hgb Hct MCHC RDW 15.8 H Lymph % (Auto) 6.3 L [place] % (Auto) 11.7 H Lymph # (Auto) 1.0 L [place] # (Auto) 1.8 H Seg Neutrophils % 81.8 H Lymphocytes % (Manual) Seg Neutrophils # 12.6 H Lymphocytes # (Manual) PT INR D-Dimer ABG pH POC ABG pCO2 POC ABG pO2 ABG pO2 ABG HCO3 ABG O2 Saturation ABG Base Excess ABG Hemoglobin ABG Oxyhemoglobin VBG pH Oxyhemoglobin Carboxyhemoglobin Sodium Potassium Chloride Carbon Dioxide BUN Creatinine Glucose POC Glucose Lactic Acid Calcium Phosphorus Magnesium AST ALT Lactate Dehydrogenase Total Creatine Kinase CK-MB (CK-2) CK-MB (CK-2) Rel Index Troponin T C-Reactive Protein NT-Pro-B Natriuret Pep Triglycerides HDL Cholesterol Vitamin B12 Urine WBC (Auto) 27.0 H Urine Creatinine 24.4 H Urine Total Protein 111 H Crossmatch 12/02/21 12/02/21 12/02/21 01:24 01:24 01:24 WBC RBC Hgb Hct MCHC RDW Lymph % (Auto) [place] % (Auto) Lymph # (Auto) [place] # (Auto) Seg Neutrophils % Lymphocytes % (Manual) Seg Neutrophils # Lymphocytes # (Manual) PT 15.9 H INR 1.15 H D-Dimer ABG pH POC ABG pCO2 POC ABG pO2 ABG pO2 ABG HCO3 ABG O2 Saturation ABG Base Excess ABG Hemoglobin ABG Oxyhemoglobin VBG pH Oxyhemoglobin Carboxyhemoglobin Sodium Potassium 3.5 L Chloride Carbon Dioxide 4 L* BUN 43 H Creatinine 5.1 H Glucose 239 H POC Glucose Lactic Acid 15.70 H* Calcium Phosphorus Magnesium AST 86 H ALT 69 H Lactate Dehydrogenase Total Creatine Kinase 254 H CK-MB (CK-2) 20.2 H CK-MB (CK-2) Rel Index 7.9 H Troponin T C-Reactive Protein NT-Pro-B Natriuret Pep Triglycerides HDL Cholesterol Vitamin B12 Urine WBC (Auto) Urine Creatinine Urine Total Protein Crossmatch 12/02/21 12/02/21 12/02/21 01:24 01:24 04:18 WBC RBC Hgb Hct MCHC RDW Lymph % (Auto) [place] % (Auto) Lymph # (Auto) [place] # (Auto) Seg Neutrophils % Lymphocytes % (Manual) Seg Neutrophils # Lymphocytes # (Manual) PT INR D-Dimer 1461.68 H ABG pH POC ABG pCO2 POC ABG pO2 ABG pO2 ABG HCO3 ABG O2 Saturation ABG Base Excess ABG Hemoglobin ABG Oxyhemoglobin VBG pH 7.167 L* Oxyhemoglobin Carboxyhemoglobin Sodium Potassium Chloride Carbon Dioxide BUN Creatinine Glucose POC Glucose Lactic Acid Calcium Phosphorus Magnesium AST ALT Lactate Dehydrogenase Total Creatine Kinase CK-MB (CK-2) CK-MB (CK-2) Rel Index Troponin T 2.600 H* C-Reactive Protein NT-Pro-B Natriuret Pep > 3500 H Triglycerides HDL Cholesterol 74 H Vitamin B12 Urine WBC (Auto) Urine Creatinine Urine Total Protein Crossmatch 12/02/21 12/02/21 12/02/21 04:18 04:18 10:47 WBC RBC Hgb Hct MCHC RDW Lymph % (Auto) [place] % (Auto) Lymph # (Auto) [place] # (Auto) Seg Neutrophils % Lymphocytes % (Manual) Seg Neutrophils # Lymphocytes # (Manual) PT INR D-Dimer ABG pH POC ABG pCO2 POC ABG pO2 ABG pO2 ABG HCO3 ABG O2 Saturation ABG Base Excess ABG Hemoglobin ABG Oxyhemoglobin VBG pH Oxyhemoglobin Carboxyhemoglobin Sodium Potassium Chloride Carbon Dioxide 7 L* BUN 51 H Creatinine 5.9 H Glucose 255 H 224 H POC Glucose Lactic Acid 15.40 H* Calcium Phosphorus Magnesium AST ALT Lactate Dehydrogenase 958 H Total Creatine Kinase CK-MB (CK-2) CK-MB (CK-2) Rel Index Troponin T C-Reactive Protein 6.60 H NT-Pro-B Natriuret Pep Triglycerides HDL Cholesterol Vitamin B12 Urine WBC (Auto) Urine Creatinine Urine Total Protein Crossmatch 12/02/21 12/02/21 12/02/21 10:53 13:51 13:51 WBC RBC Hgb Hct MCHC RDW Lymph % (Auto) [place] % (Auto) Lymph # (Auto) [place] # (Auto) Seg Neutrophils % Lymphocytes % (Manual) Seg Neutrophils # Lymphocytes # (Manual) PT INR D-Dimer ABG pH POC ABG pCO2 POC ABG pO2 ABG pO2 ABG HCO3 ABG O2 Saturation ABG Base Excess ABG Hemoglobin ABG Oxyhemoglobin VBG pH Oxyhemoglobin Carboxyhemoglobin Sodium Potassium Chloride Carbon Dioxide BUN Creatinine Glucose POC Glucose 194 H Lactic Acid 11.70 H* Calcium Phosphorus Magnesium AST ALT Lactate Dehydrogenase Total Creatine Kinase CK-MB (CK-2) CK-MB (CK-2) Rel Index Troponin T 2.500 H* C-Reactive Protein NT-Pro-B Natriuret Pep Triglycerides HDL Cholesterol Vitamin B12 Urine WBC (Auto) Urine Creatinine Urine Total Protein Crossmatch 12/02/21 12/02/21 12/02/21 20:31 22:56 22:56 WBC RBC Hgb Hct MCHC RDW Lymph % (Auto) [place] % (Auto) Lymph # (Auto) [place] # (Auto) Seg Neutrophils % Lymphocytes % (Manual) Seg Neutrophils # Lymphocytes # (Manual) PT INR D-Dimer ABG pH POC ABG pCO2 POC ABG pO2 ABG pO2 156.2 H ABG HCO3 15.4 L ABG O2 Saturation ABG Base Excess -8.7 L ABG Hemoglobin ABG Oxyhemoglobin VBG pH Oxyhemoglobin Carboxyhemoglobin Sodium 147 H Potassium 3.4 L Chloride Carbon Dioxide 18 L D BUN 59 H Creatinine 6.2 H Glucose 150 H POC Glucose Lactic Acid 6.10 H* Calcium 8.3 L Phosphorus Magnesium AST ALT Lactate Dehydrogenase Total Creatine Kinase CK-MB (CK-2) CK-MB (CK-2) Rel Index Troponin T C-Reactive Protein NT-Pro-B Natriuret Pep Triglycerides HDL Cholesterol Vitamin B12 Urine WBC (Auto) Urine Creatinine Urine Total Protein Crossmatch 12/03/21 12/03/21 12/03/21 00:25 00:42 04:00 WBC RBC Hgb Hct MCHC RDW 15.4 H Lymph % (Auto) [place] % (Auto) Lymph # (Auto) [place] # (Auto) Seg Neutrophils % Lymphocytes % (Manual) 7.0 L Seg Neutrophils # Lymphocytes # (Manual) 0.4 L PT INR D-Dimer ABG pH POC ABG pCO2 POC ABG pO2 ABG pO2 ABG HCO3 ABG O2 Saturation ABG Base Excess ABG Hemoglobin ABG Oxyhemoglobin VBG pH Oxyhemoglobin Carboxyhemoglobin Sodium Potassium Chloride Carbon Dioxide BUN Creatinine Glucose POC Glucose 150 H Lactic Acid 5.80 H* Calcium Phosphorus Magnesium AST ALT Lactate Dehydrogenase Total Creatine Kinase CK-MB (CK-2) CK-MB (CK-2) Rel Index Troponin T C-Reactive Protein NT-Pro-B Natriuret Pep Triglycerides HDL Cholesterol Vitamin B12 Urine WBC (Auto) Urine Creatinine Urine Total Protein Crossmatch 12/03/21 12/03/21 12/03/21 04:00 06:14 08:35 WBC RBC Hgb Hct MCHC RDW Lymph % (Auto) [place] % (Auto) Lymph # (Auto) [place] # (Auto) Seg Neutrophils % Lymphocytes % (Manual) Seg Neutrophils # Lymphocytes # (Manual) PT INR D-Dimer ABG pH 7.533 H POC ABG pCO2 POC ABG pO2 ABG pO2 120.9 H ABG HCO3 ABG O2 Saturation ABG Base Excess ABG Hemoglobin 11.9 L ABG Oxyhemoglobin VBG pH Oxyhemoglobin Carboxyhemoglobin Sodium Potassium 3.5 L Chloride Carbon Dioxide 21 L BUN 63 H Creatinine 6.3 H Glucose 158 H POC Glucose 145 H Lactic Acid Calcium 7.9 L Phosphorus Magnesium AST ALT Lactate Dehydrogenase Total Creatine Kinase CK-MB (CK-2) CK-MB (CK-2) Rel Index Troponin T C-Reactive Protein NT-Pro-B Natriuret Pep Triglycerides HDL Cholesterol Vitamin B12 Urine WBC (Auto) Urine Creatinine Urine Total Protein Crossmatch 12/03/21 12/03/21 12/03/21 12:35 13:48 15:51 WBC RBC Hgb Hct MCHC RDW Lymph % (Auto) [place] % (Auto) Lymph # (Auto) [place] # (Auto) Seg Neutrophils % Lymphocytes % (Manual) Seg Neutrophils # Lymphocytes # (Manual) PT INR D-Dimer ABG pH POC ABG pCO2 POC ABG pO2 ABG pO2 ABG HCO3 ABG O2 Saturation ABG Base Excess ABG Hemoglobin ABG Oxyhemoglobin VBG pH Oxyhemoglobin Carboxyhemoglobin Sodium Potassium Chloride Carbon Dioxide BUN Creatinine Glucose POC Glucose 151 H 168 H Lactic Acid Calcium Phosphorus Magnesium AST ALT Lactate Dehydrogenase Total Creatine Kinase CK-MB (CK-2) CK-MB (CK-2) Rel Index Troponin T C-Reactive Protein NT-Pro-B Natriuret Pep Triglycerides HDL Cholesterol Vitamin B12 Urine WBC (Auto) 9.0 H Urine Creatinine Urine Total Protein Crossmatch 12/03/21 12/03/21 12/03/21 16:20 16:35 23:21 WBC RBC Hgb Hct MCHC RDW Lymph % (Auto) [place] % (Auto) Lymph # (Auto) [place] # (Auto) Seg Neutrophils % Lymphocytes % (Manual) Seg Neutrophils # Lymphocytes # (Manual) PT INR D-Dimer ABG pH POC ABG pCO2 POC ABG pO2 ABG pO2 ABG HCO3 ABG O2 Saturation ABG Base Excess ABG Hemoglobin ABG Oxyhemoglobin VBG pH Oxyhemoglobin Carboxyhemoglobin Sodium Potassium Chloride 92.3 L Carbon Dioxide BUN 67 H Creatinine 7.1 H Glucose 160 H POC Glucose 158 H 161 H Lactic Acid Calcium 7.3 L Phosphorus Magnesium AST ALT Lactate Dehydrogenase Total Creatine Kinase CK-MB (CK-2) CK-MB (CK-2) Rel Index Troponin T C-Reactive Protein NT-Pro-B Natriuret Pep Triglycerides HDL Cholesterol Vitamin B12 Urine WBC (Auto) Urine Creatinine Urine Total Protein Crossmatch 12/04/21 12/04/21 12/04/21 04:18 04:18 04:18 WBC RBC 3.29 L Hgb 10.0 L Hct 28.4 L D MCHC 35 H RDW 15.4 H Lymph % (Auto) [place] % (Auto) Lymph # (Auto) [place] # (Auto) Seg Neutrophils % Lymphocytes % (Manual) Seg Neutrophils # Lymphocytes # (Manual) PT INR D-Dimer ABG pH POC ABG pCO2 POC ABG pO2 ABG pO2 ABG HCO3 ABG O2 Saturation ABG Base Excess ABG Hemoglobin ABG Oxyhemoglobin VBG pH Oxyhemoglobin Carboxyhemoglobin Sodium Potassium 3.5 L Chloride 91.5 L Carbon Dioxide 33 H D BUN 74 H Creatinine 7.5 H Glucose 155 H POC Glucose Lactic Acid 4.60 H* Calcium 7.2 L Phosphorus 4.60 H Magnesium AST ALT Lactate Dehydrogenase Total Creatine Kinase CK-MB (CK-2) CK-MB (CK-2) Rel Index Troponin T C-Reactive Protein NT-Pro-B Natriuret Pep Triglycerides HDL Cholesterol Vitamin B12 Urine WBC (Auto) Urine Creatinine Urine Total Protein Crossmatch 12/04/21 12/04/21 12/04/21 10:29 11:08 15:46 WBC RBC Hgb Hct MCHC RDW Lymph % (Auto) [place] % (Auto) Lymph # (Auto) [place] # (Auto) Seg Neutrophils % Lymphocytes % (Manual) Seg Neutrophils # Lymphocytes # (Manual) PT INR D-Dimer ABG pH 7.504 H POC ABG pCO2 POC ABG pO2 ABG pO2 40.8 L ABG HCO3 30.1 H ABG O2 Saturation 75.1 L ABG Base Excess 6.6 H ABG Hemoglobin 10.2 L ABG Oxyhemoglobin VBG pH Oxyhemoglobin 73.7 L Carboxyhemoglobin Sodium Potassium Chloride Carbon Dioxide BUN Creatinine Glucose POC Glucose 146 H 155 H Lactic Acid Calcium Phosphorus Magnesium AST ALT Lactate Dehydrogenase Total Creatine Kinase CK-MB (CK-2) CK-MB (CK-2) Rel Index Troponin T C-Reactive Protein NT-Pro-B Natriuret Pep Triglycerides HDL Cholesterol Vitamin B12 Urine WBC (Auto) Urine Creatinine Urine Total Protein Crossmatch 12/04/21 12/05/21 12/05/21 23:30 04:22 04:22 WBC 12.7 H RBC 3.33 L Hgb 9.6 L Hct 29.3 L MCHC RDW 15.5 H Lymph % (Auto) [place] % (Auto) Lymph # (Auto) [place] # (Auto) Seg Neutrophils % Lymphocytes % (Manual) Seg Neutrophils # Lymphocytes # (Manual) PT INR D-Dimer ABG pH POC ABG pCO2 POC ABG pO2 ABG pO2 ABG HCO3 ABG O2 Saturation ABG Base Excess ABG Hemoglobin ABG Oxyhemoglobin VBG pH Oxyhemoglobin Carboxyhemoglobin Sodium Potassium Chloride 90.3 L Carbon Dioxide BUN 89 H Creatinine 8.8 H Glucose 216 H POC Glucose 183 H Lactic Acid Calcium 8.0 L Phosphorus 4.60 H Magnesium AST ALT Lactate Dehydrogenase Total Creatine Kinase CK-MB (CK-2) CK-MB (CK-2) Rel Index Troponin T C-Reactive Protein NT-Pro-B Natriuret Pep Triglycerides 280 H HDL Cholesterol Vitamin B12 Urine WBC (Auto) Urine Creatinine Urine Total Protein Crossmatch 12/05/21 12/05/21 12/05/21 10:15 10:54 11:57 WBC RBC Hgb Hct MCHC RDW Lymph % (Auto) [place] % (Auto) Lymph # (Auto) [place] # (Auto) Seg Neutrophils % Lymphocytes % (Manual) Seg Neutrophils # Lymphocytes # (Manual) PT INR D-Dimer ABG pH 7.518 H POC ABG pCO2 POC ABG pO2 ABG pO2 43.4 L ABG HCO3 28.8 H ABG O2 Saturation 78.6 L ABG Base Excess 5.6 H ABG Hemoglobin 8.4 L ABG Oxyhemoglobin VBG pH Oxyhemoglobin 77.1 L Carboxyhemoglobin Sodium Potassium Chloride Carbon Dioxide BUN Creatinine Glucose POC Glucose 187 H 196 H Lactic Acid Calcium Phosphorus Magnesium AST ALT Lactate Dehydrogenase Total Creatine Kinase CK-MB (CK-2) CK-MB (CK-2) Rel Index Troponin T C-Reactive Protein NT-Pro-B Natriuret Pep Triglycerides HDL Cholesterol Vitamin B12 Urine WBC (Auto) Urine Creatinine Urine Total Protein Crossmatch 12/05/21 12/05/21 12/05/21 16:34 18:02 23:39 WBC RBC Hgb Hct MCHC RDW Lymph % (Auto) [place] % (Auto) Lymph # (Auto) [place] # (Auto) Seg Neutrophils % Lymphocytes % (Manual) Seg Neutrophils # Lymphocytes # (Manual) PT INR D-Dimer ABG pH POC ABG pCO2 POC ABG pO2 ABG pO2 ABG HCO3 ABG O2 Saturation ABG Base Excess ABG Hemoglobin ABG Oxyhemoglobin VBG pH Oxyhemoglobin Carboxyhemoglobin Sodium Potassium Chloride Carbon Dioxide BUN Creatinine Glucose POC Glucose 178 H 167 H 235 H Lactic Acid Calcium Phosphorus Magnesium AST ALT Lactate Dehydrogenase Total Creatine Kinase CK-MB (CK-2) CK-MB (CK-2) Rel Index Troponin T C-Reactive Protein NT-Pro-B Natriuret Pep Triglycerides HDL Cholesterol Vitamin B12 Urine WBC (Auto) Urine Creatinine Urine Total Protein Crossmatch 12/06/21 12/06/21 12/06/21 04:35 04:35 05:37 WBC 11.8 H RBC 2.99 L Hgb 8.9 L Hct 26.1 L MCHC RDW Lymph % (Auto) [place] % (Auto) Lymph # (Auto) [place] # (Auto) Seg Neutrophils % Lymphocytes % (Manual) Seg Neutrophils # Lymphocytes # (Manual) PT INR D-Dimer ABG pH POC ABG pCO2 POC ABG pO2 ABG pO2 ABG HCO3 ABG O2 Saturation ABG Base Excess ABG Hemoglobin ABG Oxyhemoglobin VBG pH Oxyhemoglobin Carboxyhemoglobin Sodium Potassium Chloride 95.0 L Carbon Dioxide BUN 59 H Creatinine 6.3 H Glucose 244 H POC Glucose 251 H Lactic Acid Calcium Phosphorus Magnesium AST ALT Lactate Dehydrogenase Total Creatine Kinase CK-MB (CK-2) CK-MB (CK-2) Rel Index Troponin T C-Reactive Protein NT-Pro-B Natriuret Pep Triglycerides HDL Cholesterol Vitamin B12 Urine WBC (Auto) Urine Creatinine Urine Total Protein Crossmatch 12/06/21 12/06/21 12/06/21 06:05 11:45 17:19 WBC RBC Hgb Hct MCHC RDW Lymph % (Auto) [place] % (Auto) Lymph # (Auto) [place] # (Auto) Seg Neutrophils % Lymphocytes % (Manual) Seg Neutrophils # Lymphocytes # (Manual) PT INR D-Dimer ABG pH 7.555 H POC ABG pCO2 POC ABG pO2 ABG pO2 95.3 H ABG HCO3 27.3 H ABG O2 Saturation ABG Base Excess 4.9 H ABG Hemoglobin 9.0 L ABG Oxyhemoglobin VBG pH Oxyhemoglobin Carboxyhemoglobin Sodium Potassium Chloride Carbon Dioxide BUN Creatinine Glucose POC Glucose 249 H 187 H Lactic Acid Calcium Phosphorus Magnesium AST ALT Lactate Dehydrogenase Total Creatine Kinase CK-MB (CK-2) CK-MB (CK-2) Rel Index Troponin T C-Reactive Protein NT-Pro-B Natriuret Pep Triglycerides HDL Cholesterol Vitamin B12 Urine WBC (Auto) Urine Creatinine Urine Total Protein Crossmatch 12/06/21 12/07/21 12/07/21 23:24 04:00 04:00 WBC RBC 3.10 L Hgb 8.8 L Hct 27.5 L MCHC RDW 15.8 H Lymph % (Auto) [place] % (Auto) Lymph # (Auto) [place] # (Auto) Seg Neutrophils % Lymphocytes % (Manual) Seg Neutrophils # Lymphocytes # (Manual) PT INR D-Dimer ABG pH POC ABG pCO2 POC ABG pO2 ABG pO2 ABG HCO3 ABG O2 Saturation ABG Base Excess ABG Hemoglobin ABG Oxyhemoglobin VBG pH Oxyhemoglobin Carboxyhemoglobin Sodium Potassium Chloride Carbon Dioxide BUN 50 H Creatinine 5.5 H Glucose 248 H POC Glucose 233 H Lactic Acid Calcium Phosphorus Magnesium AST ALT Lactate Dehydrogenase Total Creatine Kinase CK-MB (CK-2) CK-MB (CK-2) Rel Index Troponin T C-Reactive Protein NT-Pro-B Natriuret Pep Triglycerides HDL Cholesterol Vitamin B12 Urine WBC (Auto) Urine Creatinine Urine Total Protein Crossmatch 12/07/21 12/07/21 12/07/21 04:55 05:40 10:49 WBC RBC Hgb Hct MCHC RDW Lymph % (Auto) [place] % (Auto) Lymph # (Auto) [place] # (Auto) Seg Neutrophils % Lymphocytes % (Manual) Seg Neutrophils # Lymphocytes # (Manual) PT INR D-Dimer ABG pH 7.519 H POC ABG pCO2 POC ABG pO2 ABG pO2 65.4 L ABG HCO3 27.1 H ABG O2 Saturation ABG Base Excess 4.1 H ABG Hemoglobin 8.3 L ABG Oxyhemoglobin VBG pH Oxyhemoglobin 94.9 L Carboxyhemoglobin Sodium Potassium Chloride Carbon Dioxide BUN Creatinine Glucose POC Glucose 230 H 215 H Lactic Acid Calcium Phosphorus Magnesium AST ALT Lactate Dehydrogenase Total Creatine Kinase CK-MB (CK-2) CK-MB (CK-2) Rel Index Troponin T C-Reactive Protein NT-Pro-B Natriuret Pep Triglycerides HDL Cholesterol Vitamin B12 Urine WBC (Auto) Urine Creatinine Urine Total Protein Crossmatch 12/07/21 12/07/21 12/08/21 15:53 23:33 04:00 WBC 14.6 H RBC 2.91 L Hgb 8.9 L Hct 25.6 L MCHC 35 H RDW 15.6 H Lymph % (Auto) [place] % (Auto) Lymph # (Auto) [place] # (Auto) Seg Neutrophils % Lymphocytes % (Manual) Seg Neutrophils # Lymphocytes # (Manual) PT INR D-Dimer ABG pH POC ABG pCO2 POC ABG pO2 ABG pO2 ABG HCO3 ABG O2 Saturation ABG Base Excess ABG Hemoglobin ABG Oxyhemoglobin VBG pH Oxyhemoglobin Carboxyhemoglobin Sodium Potassium Chloride Carbon Dioxide BUN Creatinine Glucose POC Glucose 167 H 206 H Lactic Acid Calcium Phosphorus Magnesium AST ALT Lactate Dehydrogenase Total Creatine Kinase CK-MB (CK-2) CK-MB (CK-2) Rel Index Troponin T C-Reactive Protein NT-Pro-B Natriuret Pep Triglycerides HDL Cholesterol Vitamin B12 Urine WBC (Auto) Urine Creatinine Urine Total Protein Crossmatch 12/08/21 12/08/21 12/08/21 04:00 04:10 05:15 WBC RBC Hgb Hct MCHC RDW Lymph % (Auto) [place] % (Auto) Lymph # (Auto) [place] # (Auto) Seg Neutrophils % Lymphocytes % (Manual) Seg Neutrophils # Lymphocytes # (Manual) PT INR D-Dimer ABG pH 7.511 H POC ABG pCO2 POC ABG pO2 ABG pO2 77.8 L ABG HCO3 ABG O2 Saturation ABG Base Excess ABG Hemoglobin 9.0 L ABG Oxyhemoglobin VBG pH Oxyhemoglobin Carboxyhemoglobin Sodium Potassium Chloride 96.3 L Carbon Dioxide BUN 80 H Creatinine 6.4 H Glucose 223 H POC Glucose 193 H Lactic Acid Calcium Phosphorus Magnesium 2.50 H AST ALT Lactate Dehydrogenase Total Creatine Kinase CK-MB (CK-2) CK-MB (CK-2) Rel Index Troponin T C-Reactive Protein NT-Pro-B Natriuret Pep Triglycerides HDL Cholesterol Vitamin B12 Urine WBC (Auto) Urine Creatinine Urine Total Protein Crossmatch 12/08/21 12/08/21 12/08/21 11:29 16:53 19:56 WBC RBC Hgb Hct MCHC RDW Lymph % (Auto) [place] % (Auto) Lymph # (Auto) [place] # (Auto) Seg Neutrophils % Lymphocytes % (Manual) Seg Neutrophils # Lymphocytes # (Manual) PT INR D-Dimer ABG pH POC ABG pCO2 POC ABG pO2 ABG pO2 ABG HCO3 ABG O2 Saturation ABG Base Excess ABG Hemoglobin ABG Oxyhemoglobin VBG pH Oxyhemoglobin Carboxyhemoglobin Sodium Potassium Chloride Carbon Dioxide BUN Creatinine Glucose POC Glucose 202 H 240 H 236 H Lactic Acid Calcium Phosphorus Magnesium AST ALT Lactate Dehydrogenase Total Creatine Kinase CK-MB (CK-2) CK-MB (CK-2) Rel Index Troponin T C-Reactive Protein NT-Pro-B Natriuret Pep Triglycerides HDL Cholesterol Vitamin B12 Urine WBC (Auto) Urine Creatinine Urine Total Protein Crossmatch 12/09/21 12/09/21 12/09/21 00:16 04:20 04:20 WBC 16.4 H RBC 2.91 L Hgb 8.7 L Hct 25.9 L MCHC RDW 15.9 H Lymph % (Auto) [place] % (Auto) Lymph # (Auto) [place] # (Auto) Seg Neutrophils % Lymphocytes % (Manual) Seg Neutrophils # Lymphocytes # (Manual) PT INR D-Dimer ABG pH POC ABG pCO2 POC ABG pO2 ABG pO2 ABG HCO3 ABG O2 Saturation ABG Base Excess ABG Hemoglobin ABG Oxyhemoglobin VBG pH Oxyhemoglobin Carboxyhemoglobin Sodium Potassium Chloride Carbon Dioxide BUN 58 H Creatinine 4.5 H Glucose 235 H POC Glucose 243 H Lactic Acid Calcium Phosphorus 2.40 L D Magnesium AST ALT Lactate Dehydrogenase Total Creatine Kinase CK-MB (CK-2) CK-MB (CK-2) Rel Index Troponin T C-Reactive Protein NT-Pro-B Natriuret Pep Triglycerides HDL Cholesterol Vitamin B12 Urine WBC (Auto) Urine Creatinine Urine Total Protein Crossmatch 12/09/21 12/09/21 12/09/21 05:19 08:45 11:47 WBC RBC Hgb Hct MCHC RDW Lymph % (Auto) [place] % (Auto) Lymph # (Auto) [place] # (Auto) Seg Neutrophils % Lymphocytes % (Manual) Seg Neutrophils # Lymphocytes # (Manual) PT INR D-Dimer ABG pH 7.511 H POC ABG pCO2 POC ABG pO2 ABG pO2 74.1 L ABG HCO3 ABG O2 Saturation ABG Base Excess ABG Hemoglobin 6.4 L ABG Oxyhemoglobin VBG pH Oxyhemoglobin Carboxyhemoglobin Sodium Potassium Chloride Carbon Dioxide BUN Creatinine Glucose POC Glucose 217 H 195 H Lactic Acid Calcium Phosphorus Magnesium AST ALT Lactate Dehydrogenase Total Creatine Kinase CK-MB (CK-2) CK-MB (CK-2) Rel Index Troponin T C-Reactive Protein NT-Pro-B Natriuret Pep Triglycerides HDL Cholesterol Vitamin B12 Urine WBC (Auto) Urine Creatinine Urine Total Protein Crossmatch 12/09/21 12/09/21 12/09/21 16:58 21:29 23:16 WBC RBC Hgb Hct MCHC RDW Lymph % (Auto) [place] % (Auto) Lymph # (Auto) [place] # (Auto) Seg Neutrophils % Lymphocytes % (Manual) Seg Neutrophils # Lymphocytes # (Manual) PT INR D-Dimer ABG pH POC ABG pCO2 POC ABG pO2 ABG pO2 ABG HCO3 ABG O2 Saturation ABG Base Excess ABG Hemoglobin ABG Oxyhemoglobin VBG pH Oxyhemoglobin Carboxyhemoglobin Sodium Potassium Chloride Carbon Dioxide BUN Creatinine Glucose POC Glucose 168 H 224 H 215 H Lactic Acid Calcium Phosphorus Magnesium AST ALT Lactate Dehydrogenase Total Creatine Kinase CK-MB (CK-2) CK-MB (CK-2) Rel Index Troponin T C-Reactive Protein NT-Pro-B Natriuret Pep Triglycerides HDL Cholesterol Vitamin B12 Urine WBC (Auto) Urine Creatinine Urine Total Protein Crossmatch 12/10/21 12/10/21 12/10/21 04:30 04:30 05:11 WBC 18.2 H RBC 2.72 L Hgb 7.9 L Hct 24.4 L MCHC RDW 16.0 H Lymph % (Auto) [place] % (Auto) Lymph # (Auto) [place] # (Auto) Seg Neutrophils % Lymphocytes % (Manual) Seg Neutrophils # Lymphocytes # (Manual) PT INR D-Dimer ABG pH POC ABG pCO2 POC ABG pO2 ABG pO2 ABG HCO3 ABG O2 Saturation ABG Base Excess ABG Hemoglobin ABG Oxyhemoglobin VBG pH Oxyhemoglobin Carboxyhemoglobin Sodium Potassium Chloride Carbon Dioxide 15 L D BUN 96 H Creatinine 6.1 H Glucose 215 H POC Glucose 183 H Lactic Acid Calcium 8.2 L Phosphorus 6.70 H D Magnesium AST ALT Lactate Dehydrogenase Total Creatine Kinase CK-MB (CK-2) CK-MB (CK-2) Rel Index Troponin T C-Reactive Protein NT-Pro-B Natriuret Pep Triglycerides HDL Cholesterol Vitamin B12 Urine WBC (Auto) Urine Creatinine Urine Total Protein Crossmatch 12/10/21 12/10/21 12/10/21 10:52 14:29 15:49 WBC RBC Hgb Hct MCHC RDW Lymph % (Auto) [place] % (Auto) Lymph # (Auto) [place] # (Auto) Seg Neutrophils % Lymphocytes % (Manual) Seg Neutrophils # Lymphocytes # (Manual) PT INR D-Dimer ABG pH POC ABG pCO2 POC ABG pO2 ABG pO2 ABG HCO3 ABG O2 Saturation ABG Base Excess ABG Hemoglobin ABG Oxyhemoglobin VBG pH Oxyhemoglobin Carboxyhemoglobin Sodium Potassium Chloride Carbon Dioxide BUN Creatinine Glucose POC Glucose 179 H 222 H Lactic Acid 3.90 H* Calcium Phosphorus Magnesium AST ALT Lactate Dehydrogenase Total Creatine Kinase CK-MB (CK-2) CK-MB (CK-2) Rel Index Troponin T C-Reactive Protein NT-Pro-B Natriuret Pep Triglycerides HDL Cholesterol Vitamin B12 Urine WBC (Auto) Urine Creatinine Urine Total Protein Crossmatch 12/10/21 12/10/21 12/11/21 21:02 23:06 04:33 WBC 16.7 H RBC 2.59 L Hgb 7.3 L Hct 23.3 L MCHC RDW 16.2 H Lymph % (Auto) [place] % (Auto) Lymph # (Auto) [place] # (Auto) Seg Neutrophils % Lymphocytes % (Manual) Seg Neutrophils # Lymphocytes # (Manual) PT INR D-Dimer ABG pH POC ABG pCO2 POC ABG pO2 ABG pO2 ABG HCO3 ABG O2 Saturation ABG Base Excess ABG Hemoglobin ABG Oxyhemoglobin VBG pH Oxyhemoglobin Carboxyhemoglobin Sodium Potassium Chloride Carbon Dioxide BUN Creatinine Glucose POC Glucose 238 H 241 H Lactic Acid Calcium Phosphorus Magnesium AST ALT Lactate Dehydrogenase Total Creatine Kinase CK-MB (CK-2) CK-MB (CK-2) Rel Index Troponin T C-Reactive Protein NT-Pro-B Natriuret Pep Triglycerides HDL Cholesterol Vitamin B12 Urine WBC (Auto) Urine Creatinine Urine Total Protein Crossmatch 12/11/21 12/11/21 12/11/21 04:33 04:33 05:05 WBC RBC Hgb Hct MCHC RDW Lymph % (Auto) [place] % (Auto) Lymph # (Auto) [place] # (Auto) Seg Neutrophils % Lymphocytes % (Manual) Seg Neutrophils # Lymphocytes # (Manual) PT INR D-Dimer ABG pH POC ABG pCO2 POC ABG pO2 ABG pO2 ABG HCO3 ABG O2 Saturation ABG Base Excess ABG Hemoglobin ABG Oxyhemoglobin VBG pH Oxyhemoglobin Carboxyhemoglobin Sodium Potassium Chloride 97.5 L Carbon Dioxide 13 L BUN 76 H Creatinine 5.4 H Glucose 182 H POC Glucose 157 H Lactic Acid Calcium 7.6 L Phosphorus 6.00 H Magnesium AST ALT Lactate Dehydrogenase Total Creatine Kinase CK-MB (CK-2) CK-MB (CK-2) Rel Index Troponin T C-Reactive Protein NT-Pro-B Natriuret Pep Triglycerides HDL Cholesterol Vitamin B12 > 2000 H Urine WBC (Auto) Urine Creatinine Urine Total Protein Crossmatch 12/11/21 12/11/21 12/11/21 10:59 15:55 21:01 WBC RBC Hgb Hct MCHC RDW Lymph % (Auto) [place] % (Auto) Lymph # (Auto) [place] # (Auto) Seg Neutrophils % Lymphocytes % (Manual) Seg Neutrophils # Lymphocytes # (Manual) PT INR D-Dimer ABG pH POC ABG pCO2 POC ABG pO2 ABG pO2 ABG HCO3 ABG O2 Saturation ABG Base Excess ABG Hemoglobin ABG Oxyhemoglobin VBG pH Oxyhemoglobin Carboxyhemoglobin Sodium Potassium Chloride Carbon Dioxide BUN Creatinine Glucose POC Glucose 170 H 183 H 130 H Lactic Acid Calcium Phosphorus Magnesium AST ALT Lactate Dehydrogenase Total Creatine Kinase CK-MB (CK-2) CK-MB (CK-2) Rel Index Troponin T C-Reactive Protein NT-Pro-B Natriuret Pep Triglycerides HDL Cholesterol Vitamin B12 Urine WBC (Auto) Urine Creatinine Urine Total Protein Crossmatch 12/11/21 12/11/21 12/12/21 23:30 23:50 04:35 WBC RBC Hgb Hct MCHC RDW Lymph % (Auto) [place] % (Auto) Lymph # (Auto) [place] # (Auto) Seg Neutrophils % Lymphocytes % (Manual) Seg Neutrophils # Lymphocytes # (Manual) PT INR D-Dimer ABG pH 7.315 L POC ABG pCO2 16.0 L POC ABG pO2 185.0 H ABG pO2 ABG HCO3 ABG O2 Saturation ABG Base Excess ABG Hemoglobin 7.7 L ABG Oxyhemoglobin 98.9 H VBG pH Oxyhemoglobin Carboxyhemoglobin 0.2 L Sodium Potassium Chloride Carbon Dioxide BUN Creatinine Glucose POC Glucose 144 H 25 L Lactic Acid Calcium Phosphorus Magnesium AST ALT Lactate Dehydrogenase Total Creatine Kinase CK-MB (CK-2) CK-MB (CK-2) Rel Index Troponin T C-Reactive Protein NT-Pro-B Natriuret Pep Triglycerides HDL Cholesterol Vitamin B12 Urine WBC (Auto) Urine Creatinine Urine Total Protein Crossmatch 12/12/21 12/12/21 12/12/21 05:15 05:24 05:27 WBC 21.2 H RBC 2.32 L Hgb 6.8 L Hct 22.3 L MCHC RDW 17.6 H Lymph % (Auto) [place] % (Auto) Lymph # (Auto) [place] # (Auto) Seg Neutrophils % Lymphocytes % (Manual) Seg Neutrophils # Lymphocytes # (Manual) PT INR D-Dimer ABG pH POC ABG pCO2 POC ABG pO2 ABG pO2 ABG HCO3 ABG O2 Saturation ABG Base Excess ABG Hemoglobin ABG Oxyhemoglobin VBG pH Oxyhemoglobin Carboxyhemoglobin Sodium Potassium Chloride Carbon Dioxide BUN Creatinine Glucose POC Glucose < 10 L < 10 L Lactic Acid Calcium Phosphorus Magnesium AST ALT Lactate Dehydrogenase Total Creatine Kinase CK-MB (CK-2) CK-MB (CK-2) Rel Index Troponin T C-Reactive Protein NT-Pro-B Natriuret Pep Triglycerides HDL Cholesterol Vitamin B12 Urine WBC (Auto) Urine Creatinine Urine Total Protein Crossmatch 12/12/21 12/12/21 12/12/21 06:30 08:23 08:23 WBC RBC Hgb Hct MCHC RDW Lymph % (Auto) [place] % (Auto) Lymph # (Auto) [place] # (Auto) Seg Neutrophils % Lymphocytes % (Manual) Seg Neutrophils # Lymphocytes # (Manual) PT INR D-Dimer ABG pH POC ABG pCO2 POC ABG pO2 ABG pO2 ABG HCO3 ABG O2 Saturation ABG Base Excess ABG Hemoglobin ABG Oxyhemoglobin VBG pH Oxyhemoglobin Carboxyhemoglobin Sodium 147 H Potassium 6.2 H* D Chloride 93.1 L Carbon Dioxide 6 L* D BUN 97 H Creatinine 6.8 H Glucose 64 L POC Glucose < 10 L Lactic Acid Calcium 7.5 L Phosphorus Magnesium AST ALT Lactate Dehydrogenase Total Creatine Kinase CK-MB (CK-2) CK-MB (CK-2) Rel Index Troponin T C-Reactive Protein NT-Pro-B Natriuret Pep Triglycerides HDL Cholesterol Vitamin B12 Urine WBC (Auto) Urine Creatinine Urine Total Protein Crossmatch See Detail 12/12/21 11:52 WBC RBC Hgb Hct MCHC RDW Lymph % (Auto) [place] % (Auto) Lymph # (Auto) [place] # (Auto) Seg Neutrophils % Lymphocytes % (Manual) Seg Neutrophils # Lymphocytes # (Manual) PT INR D-Dimer ABG pH POC ABG pCO2 POC ABG pO2 ABG pO2 ABG HCO3 ABG O2 Saturation ABG Base Excess ABG Hemoglobin ABG Oxyhemoglobin VBG pH Oxyhemoglobin Carboxyhemoglobin Sodium Potassium Chloride Carbon Dioxide BUN Creatinine Glucose POC Glucose < 10 L Lactic Acid Calcium Phosphorus Magnesium AST ALT Lactate Dehydrogenase Total Creatine Kinase CK-MB (CK-2) CK-MB (CK-2) Rel Index Troponin T C-Reactive Protein NT-Pro-B Natriuret Pep Triglycerides HDL Cholesterol Vitamin B12 Urine WBC (Auto) Urine Creatinine Urine Total Protein Crossmatch Allied health notes reviewed: nursing
[2021-12-12 12:48] VITALS: BP 53/24
--- NOTE | 2021-12-12 13:16 | Event Note ---
Date: 12/12/21 86-year-old female patient , DNR status .I was asked to pronounce the patient. When I evaluated the patient patient was unresponsive, pupils dilated and fixed, no cardiopulmonary activity noted Patient's family and patient's nurse at the bedside Pronounced at 12:43 on 12/12/2021
--- NOTE | 2021-12-12 14:02 | Death Summary ---
<MARY ELLENBARBRA Jordan. - Last Filed: 12/12/21 13:55> Summary - Providers Date of service: 12/12/21 Consults: 12/02/21 04:37 Consult to Physician [CONS] Routine Comment: Consulting Provider: ELINA COLE Physician Instructions: Reason For Exam: PUI,SEPSIS 12/02/21 06:33 Consult to Physician [CONS] Routine Comment: Consulting Provider: CAYETANO HERNANDEZ Physician Instructions: Reason For Exam: RAYNE 12/02/21 12:53 Consult to Cardiology [CONS] Routine Consulting Provider: RICHARD MOELLER Reason For Exam: elevated troponin 12/02/21 17:32 Consult to Dietitian/Nutrition [CONS] Routine Physician Instructions: Reason For Exam: Reason for Consult: Evaluate nutritional intake 12/03/21 08:25 Consult to Physician [CONS] Routine Comment: Consulting Provider: DEBBIE FONSECA Physician Instructions: Reason For Exam: Respiratory failure, Intubated 12/03/21 15:51 Consult to Dietitian/Nutrition [CONS] Routine Physician Instructions: Reason For Exam: Reason for Consult: Write/Manage Tube Feeding 12/11/21 08:44 Consult to Physician [CONS] Routine Comment: Consulting Provider: SHASHA HOPPER Physician Instructions: Reason For Exam: acute encephalopathy Attending: REMBERTO RODRIGUEZ MD - summary Date of admission: 12/02/21 04:38 Date of : 12/12/21 Significant findings: This is a 86-year-old female with HTN, DM, proximal atrial fibrillation right AKA who presented to the emergency department on 12/02 with complaints of shortness of breath ongoing for the past 3 days, productive cough, fever without chills. Patient is medically vaccinated against COVID-19. Recommend emergency department revealed CXR which showed development of bilateral airspace opacities compatible with hepatopulmonary edema, lab work was significant for leukocytosis of 15.4, elevated D-dimer 1461, hypokalemia at 3.5, metabolic acidosis with a CO2 of 4, lactic acidosis at 15.7, elevated proBNP greater than 3500 and elevated troponin of 2.6. Patient was started on antibiotics for possible underlying pneumonia and admitted to the hospital service as a COVID-19 PUI, sepsis with acute renal failure, metabolic acidosis, hypokalemia with consults to ID, nephrology and cardiology. Overnight on 12/03 she was intubated for resp failure and was medically treated by nephrology. On 12/05 patient was initiated on hemodialysis. On 12/09 she was started on vasopresros to maintain blood pressure. On 12/10 she was noted to be in Afib with RVR with HD which was aborted. She was ongoing CPAP trials as tolerated. She was started on midodrine on 12/11 in efforts to wean off vassopression. Overnight on 12/12 patient required to be started on 4 pressors and was maxed out by this morning, SPO2 remains in the 60s despite being on 100% FiO2. Lab work showed that she was anemic, has hyponatremia, hyperkalemia, hypochloremia, severe metabolic acidosis and required multiple pushes of bicarbonate overnight. Family visited at bedside and change CODE STATUS to DNR. Patient at 1243 and family was at bedside. Patient was pronounced by Dr. Kendrick. Acute metabolic encephalopathy Elevated proBNP NSTEMI Paroxysmal atrial fibrillation History of HTN History of PVD s/p right AKA History of cardiomyopathy Acute hypoxic respiratory failure Acute kidney injury likely secondary to acute tubular necrosis requiring hemodialysis Severe sepsis with refractory sepsis Pneumonia Lactic acidosis, pneumonia, lactic acidosis History of DM type II Leukocytosis Anemia <REMBERTO RODRIGUEZ E - Last Filed: 12/13/21 11:44> Summary - Providers Consults: 12/02/21 04:37 Consult to Physician [CONS] Routine Comment: Consulting Provider: ELINA COLE Physician Instructions: Reason For Exam: PUI,SEPSIS 12/02/21 06:33 Consult to Physician [CONS] Routine Comment: Consulting Provider: CAYETANO HERNANDEZ Physician Instructions: Reason For Exam: RAYNE 12/02/21 12:53 Consult to Cardiology [CONS] Routine Consulting Provider: RICHARD MOELLER Reason For Exam: elevated troponin 12/02/21 17:32 Consult to Dietitian/Nutrition [CONS] Routine Physician Instructions: Reason For Exam: Reason for Consult: Evaluate nutritional intake 12/03/21 08:25 Consult to Physician [CONS] Routine Comment: Consulting Provider: DEBBIE FONSECA Physician Instructions: Reason For Exam: Respiratory failure, Intubated 12/03/21 15:51 Consult to Dietitian/Nutrition [CONS] Routine Physician Instructions: Reason For Exam: Reason for Consult: Write/Manage Tube Feeding 12/11/21 08:44 Consult to Physician [CONS] Routine Comment: Consulting Provider: SHASHA HOPPER Physician Instructions: Reason For Exam: acute encephalopathy Attending: REMBERTO RODRIGUEZ MD - summary Date of admission: 12/02/21 04:38 Significant findings: I saw and evaluated the patient. I agree with the findings and the plan of care as documented in the Nurse Practitioner's~note, with the following corrections and additions.
== END 2021-12-12 12:43 | DRG 870 ==
LOC: ED 23:02 → 3A 12-02 04:38 → CC1 12-02 18:07
PROVIDERS: ADMIT Internal Medicine Geriatric Medicine; ATTEND Internal Medicine
PROC: 05HM33Z Insertion of Infusion Device into Right Internal Jugular Vein, Percutaneous Approach (ICD-10-PCS; principal; 2021-12-02)
PROC: B543ZZA Ultrasonography of Right Jugular Veins, Guidance (ICD-10-PCS; 2021-12-02)
PROC: 0BH17EZ Insertion of Endotracheal Airway into Trachea, Via Natural or Artificial Opening (ICD-10-PCS; 2021-12-02)
PROC: 5A1955Z Respiratory Ventilation, Greater than 96 Consecutive Hours (ICD-10-PCS; 2021-12-02)
PROC: 4A033R1 Measurement of Arterial Saturation, Peripheral, Percutaneous Approach (ICD-10-PCS; 2021-12-02)
PROC: 05HM33Z Insertion of Infusion Device into Right Internal Jugular Vein, Percutaneous Approach (ICD-10-PCS; 2021-12-05)
PROC: B543ZZA Ultrasonography of Right Jugular Veins, Guidance (ICD-10-PCS; 2021-12-05)
PROC: 5A1D70Z Performance of Urinary Filtration, Intermittent, Less than 6 Hours Per Day (ICD-10-PCS; 2021-12-05)
PROC: 5A1D70Z Performance of Urinary Filtration, Intermittent, Less than 6 Hours Per Day (ICD-10-PCS; 2021-12-06)
PROC: 5A1D70Z Performance of Urinary Filtration, Intermittent, Less than 6 Hours Per Day (ICD-10-PCS; 2021-12-08)
PROC: 5A1D70Z Performance of Urinary Filtration, Intermittent, Less than 6 Hours Per Day (ICD-10-PCS; 2021-12-10)
DX: A41.9 Sepsis, unspecified organism (principal); J18.9 Pneumonia, unspecified organism; N17.0 Acute kidney failure with tubular necrosis; G93.41 Metabolic encephalopathy; J81.0 Acute pulmonary edema; J96.01 Acute respiratory failure with hypoxia; I21.4 Non-ST elevation (NSTEMI) myocardial infarction; I42.9 Cardiomyopathy, unspecified; R65.20 Severe sepsis without septic shock; I10 Essential (primary) hypertension; Z20.822 Contact with and (suspected) exposure to COVID-19; E11.9 Type 2 diabetes mellitus without complications; E78.5 Hyperlipidemia, unspecified; E87.6 Hypokalemia; Z66 Do not resuscitate; I48.0 Paroxysmal atrial fibrillation; D64.9 Anemia, unspecified
CPT/HCPCS: 36415; 36600; 70450; 71045; 74018; 74176; 76604; 76770; 80048; 80053; 80061; 80074; 80202; 81001; 82140; 82550; 82553; 82570; 82607; 82728; 82803; 82805; 82947; 82962; 83615; 83735; 83880; 84100; 84145; 84156; 84300; 84443; 84478; 84484; 85007; 85025; 85027; 85379; 85610; 85730; 86140; 86850; 86900; 86901; 86920; 87040; 87070; 87086; 87205; 93005; 93010; 93306; 93970; 94002; 94003; 94640; 94644; 95819; G0378; J2354; J3490; J9280; Q0162; Q9967; C8929; J0456; J0692; J0696; J0885; J1265; J1644; J1815; J1940; J2060; J2250; J2270; J2370; J2704; J3010; J3370; J3480; J7030; J7050; J7070; U0003